=== PATIENT | female | born 1970 | race Caucasian/White ===

== ENCOUNTER 2017-01-27 14:20 | Emergency (ER) | payer OTHER ==
[~2017-01-27] VITALS: Ht 147.3 cm; Wt 84.5 kg
[~2017-01-27 14:20] MED LIST: CARB200T PO; CLTP PO; DIAZ-165 PO; DIVA125C PO; IBUP-1050 PO; PSEU30TA20 PO
[2017-01-27 14:35] VITALS: TEMP 36.7; Ht 147.3 cm; Wt 84.5 kg
[2017-01-27 15:10] LABS: URINE APPEARANCE CLOUDY (CLEAR); URINE BILIRUBIN NEG (NEG); URINE COLOR YELLOW; URINE EPITHELIAL CELL AUTO >30 /lpf (0-5); URINE NITRITE POS (NEG); URINE SPECIFIC GRAVITY 1.013 (1.000-1.030); UROBILINOGEN NEG (NEG); ZZURINE CULT IF INDIC CATH YES
[2017-01-27 15:11] LABS: MANUAL MICROSCOPIC REQUIRED? NO; REVIEW REQ? YES
[2017-01-27] MEDS ORDERED: ACET325T96 PO (15:19)
[2017-01-27] MEDS ORDERED: MULT-513 PO (15:21)
--- NOTE | 2017-01-27 15:26 | EMERGENCY ROOM VISIT NOTE ---
History Report prepared by Robert: Gita Morales Under the Supervision of: Dr. Hectro Magana D.O. First contact with patient: 14:22 Stated Complaint: FEVER History of Present Illness The patient is a 46 year old female who presents to the Emergency Room with complaints of a constant illness beginning 4 days ago. The patient's mother states that she had a cold 2 weeks ago that has spread throughout their family. She reports that her had the cold with a cough, fever, and chills and was seen here in the ED 4 days ago. She notes that he was tested for the flu and had a chest x-ray that came back negative. The mother states that the patient is a paraplegic and has a trach that was changed 1 week ago and is suctioned multiple times a day and a Larson that is changed every 3 weeks. She reports that she noticed the patient starting to get sick about 4 days ago with a runny nose. The following day she states that the patient slept most of the day and had a fever of 101 at night. She notes that she gave the patient Motrin yesterday morning but since last night into the morning the patient had not had a fever. Today the patient's mother states that the patient had Motrin and Sudafed about 6 hours ago and had a fever of 100.6 before she came in today. The patient's mother denies any recent urinary tract infections, urinary symptoms or changes, sore throat, and abdominal pain. She complains of a non- productive cough that is not new or worse, clear runny nose beginning 4 days ago , fever, ear pain, and need for slightly more frequent suctioning. Source of History: parent Onset: 4 days ago Position: other (global) Symptom Intensity: 100.6 Timing: constant Associated Symptoms: + cough, + fevers, No abdominal pain, No sorethroat, No urinary symptoms Note: The patient's mother denies any recent urinary tract infections. She complains of a clear runny nose beginning 4 days ago, ear pain, and need for slightly more frequent suctioning. Review of Systems See HPI for pertinent positives & negatives. A total of 10 systems reviewed and were otherwise negative. Past Medical & Surgical Medical Problems: (1) Generalized epilepsy Family History No pertinent family history stated. Social History Smokeless Tobacco Use: No Marital Status: single Housing Status: lives with family Current/Historical Medications Scheduled Acetaminophen Tab (Tylenol), 650 MG PO PRN UD Carbamazepine (Tegretol), 200 MG PO BID Diazepam (Valium), 5 MG PO BID Divalproex Sodium (Depakote Sprinkle), 625 MG PO BID Lamotrigine (Lamictal), 100 MG PO BID Levofloxacin (Levaquin), 1 TAB PO DAILY Multivitamins/Minerals (Mvi With Minerals), 1 TAB PO DAILY Oseltamivir Phosphate (Tamiflu), 12.5 ML PEG BID Scheduled PRN Ibuprofen (Advil), 200-600 MG PO Q4H PRN for Pain or Fever Pseudoephedrine (Sudafed), 30 MG PO Q4 PRN for nasal congestion Allergies Coded Allergies: Phenobarbital (Verified Adverse Reaction, Unknown, INTOLERANT, 12/31/09) PER PT MOTHER IN CHILDHOOD PT BECAME SEVERLY DEPRESSED FROM MEDICATION Physical Exam Vital Signs Date Time Temp Pulse Resp B/P Pulse Ox O2 Delivery O2 Flow Rate FiO2 01/27/17 16:55 88 20 128/98 99 Room Air 01/27/17 14:35 36.7 78 18 106/93 96 Room Air Physical Exam GENERAL: sitting up in wheelchair, no distress, non-toxic EYE EXAM: normal conjunctiva EAR EXAM: TMs clear bilaterally OROPHARYNX: no exudate, no erythema, lips, buccal mucosa, and tongue normal and mucous membranes are moist NECK: supple, no nuchal rigidity, no adenopathy, non-tender, trach collar in place LUNGS: Poor respiratory effort, slight Rhonchi at the bases HEART: distant, no murmurs, S1 normal and S2 normal ABDOMEN: peg tube in place, abdomen soft, non-tender, normo-active bowel sounds , no masses, no rebound or guarding. BACK: Back is symmetrical on inspection and there is no deformity, no midline tenderness, no CVA tenderness. SKIN: no rashes and no bruising UPPER EXTREMITIES: upper extremities are grossly normal. LOWER EXTREMITIES: Mild pitting edema. EXAM: Larson in place NEURO EXAM: Alert, intermittently shakes head yes and no, at baseline per mother. Medical Decision & Procedures ER Provider Diagnostic Interpretation: Xray results per the radiologist and my interpretation. TWO VIEW CHEST FINDINGS: AP and lateral chest radiographs are compared to study dated 10/29/2013. The AP view is significant degraded by patient rotation and by the patient's head obscuring the right apex. A tracheostomy is in place. The heart is top normal for projection. The pulmonary vasculature is noncongested. There are low lung volumes with elevation of the right hemidiaphragm and bibasilar atelectasis. Retrocardiac airspace opacities are observed on the frontal view. No large pleural effusion or pneumothorax is identified. The skeletal structures are osteopenic. Degenerative change and hyperkyphosis are noted in the thoracic spine. An IVC filter is present in the upper abdomen. A catheter projects over the upper abdomen. IMPRESSION: 1. Low lung volumes and bibasilar atelectasis. 2. Airspace opacities in the retrocardiac region are indeterminant but concerning for an infectious/inflammatory pneumonitis. Clinical correlation will be required. Radiographic follow-up to resolution is recommended. Electronically signed by: Britton Lozoya M.D. 01/27/2017 3:54 PM Dictated Date/Time: 01/27/2017 3:51 PM Laboratory Results 01/27/17 15:29 Red Blood Count 3.78, Mean Corpuscular Volume 93.4, Mean Corpuscular Hemoglobin 32.3, Mean Corpuscular Hemoglobin Concent 34.6, Mean Platelet Volume 9.8, Neutrophils (%) (Auto) 73.2, Lymphocytes (%) (Auto) 16.8, Monocytes (%) (Auto) 9.8, Eosinophils (%) (Auto) 0.0, Basophils (%) (Auto) 0.1, Neutrophils # (Auto) 5.85, Lymphocytes # (Auto) 1.34, Monocytes # (Auto) 0.78, Eosinophils # (Auto) 0.00, Basophils # (Auto) 0.01 01/27/17 15:29 Test 01/27/17 14:47 01/27/17 14:50 01/27/17 15:29 Urine Color YELLOW Urine Appearance CLOUDY (CLEAR) Urine pH 6.0 (4.5-7.5) Urine Specific [place] 1.013 (1.000-1.030) Urine Protein NEG (NEG) Urine Glucose (UA) NEG (NEG) Urine Ketones TRACE (NEG) Urine Occult Blood 2+ (NEG) Urine Nitrite POS (NEG) Urine Bilirubin NEG (NEG) Urine Urobilinogen NEG (NEG) Urine Leukocyte Esterase NEG (NEG) Urine WBC (Auto) 5-10 /hpf (0-5) Urine RBC (Auto) 10-30 /hpf (0-4) Urine Hyaline Casts (Auto) 1-5 /lpf (0-5) Urine Epithelial Cells (Auto) >30 /lpf (0-5) Urine Bacteria (Auto) 4+ (NEG) Urine Renal Epithelial Cells 5-10 /lpf (0-5) Influenza Type A Antigen Neg for Influ A (NEG) Influenza Type B Antigen POS for Influ B (NEG) White Blood Count 7.99 K/uL (4.8-10.8) Red Blood Count 3.78 M/uL (4.2-5.4) Hemoglobin 12.2 g/dL (12.0-16.0) Hematocrit 35.3 % (37-47) Mean Corpuscular Volume 93.4 fL (80-100) Mean Corpuscular Hemoglobin 32.3 pg (25-34) Mean Corpuscular Hemoglobin Concent 34.6 g/dl (32-36) Platelet Count 132 K/uL (130-400) Mean Platelet Volume 9.8 fL (7.4-10.4) Neutrophils (%) (Auto) 73.2 % Lymphocytes (%) (Auto) 16.8 % Monocytes (%) (Auto) 9.8 % Eosinophils (%) (Auto) 0.0 % Basophils (%) (Auto) 0.1 % Neutrophils # (Auto) 5.85 K/uL (1.4-6.5) Lymphocytes # (Auto) 1.34 K/uL (1.2-3.4) Monocytes # (Auto) 0.78 K/uL (0.11-0.59) Eosinophils # (Auto) 0.00 K/uL (0-0.5) Basophils # (Auto) 0.01 K/uL (0-0.2) RDW Standard Deviation 43.8 fL (36.4-46.3) RDW Coefficient of Variation 12.8 % (11.5-14.5) Immature Granulocyte % (Auto) 0.1 % Immature Granulocyte # (Auto) 0.01 K/uL (0.00-0.02) Anion Gap 11.0 mmol/L (3-11) Est Creatinine Clear Calc Drug Dose 174.0 ml/min Estimated GFR () 149.3 Estimated GFR (Non- 128.8 BUN/Creatinine Ratio 21.3 (10-20) Calcium Level 8.7 mg/dl (8.5-10.1) Total Bilirubin 0.1 mg/dl (0.2-1) Direct Bilirubin < 0.1 mg/dl (0-0.2) Aspartate Amino Transf (AST/SGOT) 15 U/L (15-37) Alanine Aminotransferase (ALT/SGPT) 14 U/L (12-78) Alkaline Phosphatase 62 U/L (45-117) Total Protein 6.5 gm/dl (6.4-8.2) Albumin 2.7 gm/dl (3.4-5.0) Lipase 138 U/L (73-393) Laboratory results per my review. Medications Administered Medications (Trade) Dose Ordered Sig/Leisa Route Start Time Stop Time Status Last Admin Dose Admin Levofloxacin (Levaquin Tab) 750 mg NOW STAT PO 01/27/17 16:37 01/27/17 16:38 DC 01/27/17 16:45 750 MG Oseltamivir Phosphate (Tamiflu Cap) 75 mg STK-MED ONCE PO 01/27/17 16:41 01/27/17 16:44 DC 01/27/17 16:46 75 MG ED Course ED COURSE: Vital signs were reviewed and normal The patients medical record was reviewed The above diagnostic studies were performed and reviewed. ED treatments and interventions as stated above. 1423: The patient was evaluated in room B3. A complete history and physical examination was performed. 1549: Urine cultures reviewed no previous sensitivities. 1637: Tamiflu Susp 25mg PO, Levaquin Tab 750mg PO. 1642: Upon reevaluation, the patient is hemodynamically stable.I discussed my findings with the patient and her mother. They understand and agree with the treatment plan. Based on the patients age, coexisting illnesses, exam and lab findings the decision to treat as an outpatient was made. The patient remained stable while under my care. The patient appeared well at the time of discharge. Medical Decision Differential diagnosis includes etiologies such as sepsis, UTI, pneumonia, metabolic, electrolyte abnormalities, cardiac sources, intracerebral event, toxicologic, neurologic, as well as viral syndrome, otitis, pharyngitis, pneumonia, influenza, meningitis, urinary tract infection, sepsis, bacteremia, as well as others were entertained. Patient is a 46-year-old female who is a paraplegic with a trach collar and PEG tubes that presents the ER with fevers, increased sputum and runny nose. Multiple sick contacts within the family including patient's mother, father and brother with similar upper respiratory symptoms. Symptoms started Sunday when she is not feeling well. There is associated fever but this resolved until today. She again had a fever today of 100.6. Mother is a charge nurse on for the ER. Chest x-ray and blood work was obtained. She also has a Larson in place. Urine shows nitrates, leukocytes, white cells but multiple epithelial cells. Chest x-ray has an infiltrate. Influenza B was positive. Patient was treated for influenza with Tamiflu and Levaquin which would cover a UTI although I favor this is chronic with indwelling Larson and any pneumonia. Mom is a nurse and was comfortable taking the patient home. I felt this is reasonable as vitals were stable. Discussed with parent concerning signs and symptoms to watch out for. Parent was instructed to follow up with their PCP and discussed with the parent their option to return to the ED at anytime for persistent or worsening symptoms. The appropriate anticipatory guidance and out- patient management, including indications for return to the emergency department , were explained at length to the parent and understood. Impression Primary Impression: Influenza B Additional Impressions: Pneumonia UTI (urinary tract infection) Scribe Attestation The scribe's documentation has been prepared under my direction and personally reviewed by me in its entirety. I confirm that the note above accurately reflects all work, treatment, procedures, and medical decision making performed by me. Departure Information Dispostion Home / Self-Care Prescriptions Oseltamivir Phosphate (TAMIFLU) 6 Mg/Ml Radha 12.5 ML PEG BID for 5 Days Prov: Hector Magana, DO 01/27/17 Levofloxacin (LEVAQUIN) 750 Mg Tab 1 TAB PO DAILY for 10 Days, #10 TAB Prov: Hector Magana, DO 01/27/17 Referrals Carrie Roca M.D. (PCP) Forms HOME CARE DOCUMENTATION FORM, IMPORTANT VISIT INFORMATION Patient Instructions My [facility], Pneumonia (Bacterial) - [facility] Additional Instructions Please follow up with your primary care doctor with in the next 24 hours. Any worsening of your symptoms, please return to the ED immediately. This includes fevers or systolic greater than 100.4 for the next 3 days, decreased mentation/ tiredness, confusion, persistent nausea vomiting, or any other concerning signs or symptoms from your standpoint. Please give the antibiotics and Tamiflu as prescribed. Problem Qualifiers Additional Impressions: Pneumonia Pneumonia type: due to unspecified organism Laterality: unspecified laterality Lung location: unspecified part of lung Qualified Codes: J18.9 - Pneumonia, unspecified organism UTI (urinary tract infection) Urinary tract infection type: acute cystitis Hematuria presence: without hematuria Qualified Codes: N30.00 - Acute cystitis without hematuria
[2017-01-27 15:37] LABS: BASO % 0.1 %; BASO ABS # 0.01 K/uL (0-0.2); COMPLETE YES; HEMATOCRIT 35.3 % (37-47); IG% 0.1 %; LYMPH % 16.8 %; LYMPH ABS # 1.34 K/uL (1.2-3.4); MEAN CELL VOLUME 93.4 fL (80-100); MEAN CORPUSCULAR HEMOGLOBIN 32.3 pg (25-34); MEAN CORPUSCULAR HGB CONC 34.6 g/dl (32-36); MEAN PLATELET VOLUME 9.8 fL (7.4-10.4); MONO % 9.8 %; NEUT % 73.2 %; PLATELET COUNT 132 K/uL (130-400); RED BLOOD COUNT 3.78 M/uL (4.2-5.4); WHITE BLOOD COUNT 7.99 K/uL (4.8-10.8)
[2017-01-27] MEDS ORDERED: METHYLPREDNISOLONE 125 MG VIAL IV STA (15:41)
[2017-01-27 15:52] LABS: ALT/SGPT 14 U/L (12-78); BLOOD UREA NITROGEN 8 mg/dl (7-18); BUN/CREATININE RATIO 21.3 (10-20); CALCIUM 8.7 mg/dl (8.5-10.1); CARBON DIOXIDE 24 mmol/L (21-32); CHLORIDE 95 mmol/L (98-107); CREATININE 0.38 mg/dl (0.60-1.20); GLUCOSE 99 mg/dl (70-99); SODIUM 130 mmol/L (136-145)
--- NOTE | 2017-01-27 15:55 | DIAGNOSTIC IMAGING REPORT ---
TWO VIEW CHEST CLINICAL HISTORY: Fever. FINDINGS: AP and lateral chest radiographs are compared to study dated 10/29/2013. The AP view is significant degraded by patient rotation and by the patient's head obscuring the right apex. A tracheostomy is in place. The heart is top normal for projection. The pulmonary vasculature is noncongested. There are low lung volumes with elevation of the right hemidiaphragm and bibasilar atelectasis. Retrocardiac airspace opacities are observed on the frontal view. No large pleural effusion or pneumothorax is identified. The skeletal structures are osteopenic. Degenerative change and hyperkyphosis are noted in the thoracic spine. An IVC filter is present in the upper abdomen. A catheter projects over the upper abdomen. IMPRESSION: 1. Low lung volumes and bibasilar atelectasis. 2. Airspace opacities in the retrocardiac region are indeterminant but concerning for an infectious/inflammatory pneumonitis. Clinical correlation will be required. Radiographic follow-up to resolution is recommended. Electronically signed by: Britton Lozoya M.D. 01/27/2017 3:54 PM Dictated Date/Time: 01/27/2017 3:51 PM
[2017-01-27 15:56] LABS: ALKALINE PHOSPHATASE 62 U/L (45-117); AST/SGOT 15 U/L (15-37)
[2017-01-27] MEDS ORDERED: LEVOFLOXACIN 250 MG TAB PO STA (16:37)
[2017-01-27] MEDS ORDERED: OSELTAMIVIR PHOSPHATE SUSP 75 MG/12.5 ML UDP PO STA (16:37)
[2017-01-27] MEDS ORDERED: OSELTAMIVIR PHOSPHATE 75 MG CAP PO ONE (16:41)
[2017-01-27] MEDS ORDERED: OSEL12.5 PEG (16:41)
[2017-01-27] MEDS ORDERED: LEVO-18 PO (16:41)
[2017-01-27 16:55] VITALS: BP 128/98; PULSE 88; O2SAT 99
[2017-01-27] MEDS ORDERED: LAMO100T16 PO (17:53)
--- NOTE | 2017-01-29 11:13 | Pharmacy Progress Note ---
ED Pharmacist Culture FollowUp Date of Service: Jan 29, 2017. Patient was seen in ER on 01/27/17 w/ fever, cough, ear pain, runny nose and increased secretions. She was diagnosed w/ Influenza B, PNX and possible UTI - although UTI was questionable due to the number of epis in the UA and low number of WBC (only 5-10). Patient was prescribed Levofloxacin 750mg daily x 10 days to treat PNX and possible UTI, along w/ Tamiflu for Infuenza B. The E coli growing in the patient's urine cx is sensitive to Levofloxacin, Levofloxacin is a reasonable choice for treatment of PNX in outpatient setting w / comorbidities; no action required.
== END 2017-01-27 16:58 | disposition home or self-care (01) ==
LOC: EDBD 14:20 → C.EDB 14:21
DX: J11.1 Influenza due to unidentified influenza virus with other respiratory manifestations (principal); J18.9 Pneumonia, unspecified organism; N30.00 Acute cystitis without hematuria; A49.8 Other bacterial infections of unspecified site; G40.909 Epilepsy, unspecified, not intractable, without status epilepticus

== ENCOUNTER 2017-09-09 13:19 | Emergency (ER) | payer OTHER ==
[~2017-09-09] VITALS: Ht 147.3 cm; Wt 97.7 kg
[~2017-09-09 13:19] MED LIST changes: +ACET325T96 PO; -CLTP PO; +LAMO100T16 PO; +MULT-513 PO; +OSEL12.5 PEG
[2017-09-09] MEDS ORDERED: SODIUM CHLORIDE 0.9% 1000ML 1,000 ML IV SCH (13:39)
[2017-09-09 14:02] VITALS: TEMP 36.4
[2017-09-09 14:04] VITALS: Ht 147.3 cm; Wt 97.7 kg
--- NOTE | 2017-09-09 14:37 | DIAGNOSTIC IMAGING REPORT ---
CHEST ONE VIEW PORTABLE HISTORY: Stroke symptoms. COMPARISON: Chest 01/27/2017. FINDINGS: Low lung volumes are again noted. No pneumothorax. No pleural effusions. Mild elevation of the right hemidiaphragm, unchanged. Cardiomediastinal silhouette is stable. Mild central pulmonary vascular congestion without overt edema. No new focal lung consolidations to suggest pneumonia. Tracheostomy tube appears to be in good position. IMPRESSION: Stable mild central pulmonary vascular congestion without overt edema. Electronically signed by: Guzman Jansen M.D. 09/09/2017 2:36 PM Dictated Date/Time: 09/09/2017 2:34 PM
[2017-09-09] MEDS ORDERED: MAGNTAB10 PO (14:58)
[2017-09-09] MEDS ORDERED: GUAI1TAB55 PO (14:58)
[2017-09-09] MEDS ORDERED: IBUP-1427 PO (14:58)
[2017-09-09 15:16] LABS: URINE APPEARANCE CLEAR (CLEAR); URINE BILIRUBIN NEG (NEG); URINE COLOR YELLOW; URINE NITRITE NEG (NEG); URINE PH 8.5 (4.5-7.5); URINE SPECIFIC GRAVITY 1.014 (1.000-1.030); UROBILINOGEN NEG (NEG); ZZURINE CULT IF INDIC CATH NO
[2017-09-09 15:17] LABS: MANUAL MICROSCOPIC REQUIRED? NO; REVIEW REQ? NO
[2017-09-09 15:23] LABS: COMPLETE YES; EOS % 0.4 %; HEMATOCRIT 34.4 % (37-47); IG% 0.2 %; LYMPH % 30.5 %; LYMPH ABS # 1.52 K/uL (1.2-3.4); MEAN CELL VOLUME 93.2 fL (80-100); MEAN CORPUSCULAR HEMOGLOBIN 32.2 pg (25-34); MEAN CORPUSCULAR HGB CONC 34.6 g/dl (32-36); MEAN PLATELET VOLUME 9.1 fL (7.4-10.4); MONO % 7.8 %; NEUT % 61.1 %; PLATELET COUNT 170 K/uL (130-400); RED BLOOD COUNT 3.69 M/uL (4.2-5.4); WHITE BLOOD COUNT 4.99 K/uL (4.8-10.8)
--- NOTE | 2017-09-09 15:33 | DIAGNOSTIC IMAGING REPORT ---
CT OF THE HEAD WITHOUT CONTRAST CLINICAL HISTORY: Stroke. Altered mental status. COMPARISON STUDY: No previous studies for comparison. CT DOSE: 655.73 mGy.cm TECHNIQUE: Helical axial images of the head were obtained without IV contrast. Automated exposure control was utilized for the study. A dose lowering technique was utilized adhering to the principles of ALARA. FINDINGS: Evaluation is suboptimal given difficulty positioning. However, no acute intracranial hemorrhage, midline shift or mass effect is present. The cerebellum appears hypoplastic/atrophic. Ventricular system is unremarkable. The basilar cisterns are patent. There are no extra-axial collections. There are no findings to suggest acute dural sinus thrombosis or acute territorial infarct. No significant calvarial abnormalities are present. Visualized portions of the sinuses and mastoid air cells are clear. IMPRESSION: 1. No acute intracranial findings. 2. Study mildly compromised due to difficulty positioning. Electronically signed by: Mata Hughes M.D. 09/09/2017 3:32 PM Dictated Date/Time: 09/09/2017 3:28 PM
[2017-09-09 15:34] LABS: PARTIAL THROMBOPLASTIN RATIO 1.1; PROTHROMBIN TIME (PATIENT) 10.7 SECONDS (9.0-12.0)
[2017-09-09 15:52] LABS: BLOOD UREA NITROGEN 13 mg/dl (7-18); BUN/CREATININE RATIO 34.2 (10-20); CALCIUM 8.9 mg/dl (8.5-10.1); CARBON DIOXIDE 26 mmol/L (21-32); CHLORIDE 94 mmol/L (98-107); CREATININE 0.39 mg/dl (0.60-1.20); GLUCOSE 72 mg/dl (70-99); POTASSIUM 4.2 mmol/L (3.5-5.1); SODIUM 129 mmol/L (136-145)
--- NOTE | 2017-09-09 15:53 | EMERGENCY ROOM VISIT NOTE ---
History Report prepared by Robert: Rashid Loya Under the Supervision of: Dr. Marleen Melendez M.D. First contact with patient: 13:31 Chief Complaint: ALTERED MENTAL STATUS Stated Complaint: CHANGE IN MENTAL STATUS History of Present Illness The patient is a 47 year old female who presents to the Emergency Room for evaluation of an improving altered mental status beginning a few days ago. Per mother, the patient has been acting "punky" and has been "floppy" for several days. She notes that the patient finished a course of Amoxicillin earlier this week for sinus infection, and Bactrim for a UTI three weeks ago. She notes that the patient was found to be abnormally hypertensive today as well. The patient' s mother states that the patient was having problems with following commands today, but this appears to have resolved. She states that the patient seemed to understand the commands, but was having difficulty executing the movements. She states that the patient's speech has been "garbled" recently as well. The patient's mother notes that the patient had an episode of very dark, and foul smelling urine earlier this week. She denies any vomiting, or nausea. The patient has a history of paraplegia and epilepsy. She has a tracheostomy and PEG tube in place. She complained of a headache earlier today. HPI limited secondary to MR. Source of History: family History Limited By: other (MR) Onset: A few days ago Quality: other (altered mental status) Timing: other (improving) Associated Symptoms: + headache, + urinary symptoms (episode of foul smelling, very dark urine), No nausea, No vomiting Review of Systems ROS limited secondary to MR. Past Medical & Surgical Medical Problems: (1) Acute bronchitis (2) Acute bronchitis (3) Generalized epilepsy (4) Influenza B (5) Mental retardation (6) Paraplegia (7) Pneumonia (8) UTI (urinary tract infection) Family History No pertinent family history stated Social History Smoking Status: Never Smoker Marital Status: single Housing Status: lives with family Current/Historical Medications Scheduled Acetaminophen Tab (Tylenol), 650 MG PO PRN UD Carbamazepine (Tegretol), 200 MG PO BID Diazepam (Valium), 5 MG PO BID Divalproex Sodium (Depakote Sprinkle), 625 MG PO BID Guaifenesin Ext Rel (Mucinex Ext Rel), 600 MG PO QPM Lamotrigine (Lamictal), 100 MG PO BID Magnesium Oxide (Mg Supplement (Mag-200), 200 MG PO Q2D Magnesium Oxide (Mg Supplement (Mag-200), 400 MG PO Q2D Multivitamins/Minerals (Mvi With Minerals), 1 TAB PO DAILY Pseudoephedrine (Sudafed), 30 MG PO QAM Scheduled PRN Ibuprofen (Advil), 200-600 MG PO Q4H PRN for Pain or Fever Ibuprofen Tab (Motrin), 600 MG PO QAM PRN for Pain Allergies Coded Allergies: Phenobarbital (Verified Adverse Reaction, Unknown, INTOLERANT, 09/09/17) PER PT MOTHER IN CHILDHOOD PT BECAME SEVERLY DEPRESSED FROM MEDICATION Physical Exam Vital Signs Date Time Temp Pulse Resp B/P (MAP) Pulse Ox O2 Delivery O2 Flow Rate FiO2 09/09/17 15:43 70 20 146/95 98 Room Air 139/87 09/09/17 14:04 Room Air 09/09/17 14:02 36.4 82 21 137/94 99 Room Air Physical Exam Vital signs reviewed. General: Obese, chronically ill-appearing female, in no significant distress. HEENT: No scleral icterus, PERRLA, neck supple. Atraumatic. Tracheostomy with minimal amounts of clear sputum suctioned. Cardiovascular: Regular rate and rhythm, no extra sounds. Pulmonary: Clear to auscultation bilaterally, normal work of breathing. Abdomen: Soft, nontender, nondistended, positive bowel sounds. Indwelling Larson catheter draining clear, yellow urine. Musculoskeletal: Atraumatic, no peripheral edema. Neurologic: Minimally verbal. Able to follow simple commands. Equal strength of the bilateral upper extremities. Occasional disconjugate gaze (baseline). No focal neurologic abnormality. Paraplegia bilateral lower extremities. Skin: Warm, dry, no rash Medical Decision & Procedures ER Provider Diagnostic Interpretation: Radiology results as stated below per my review and radiologist interpretation: CT OF THE HEAD WITHOUT CONTRAST FINDINGS: Evaluation is suboptimal given difficulty positioning. However, no acute intracranial hemorrhage, midline shift or mass effect is present. The cerebellum appears hypoplastic/atrophic. Ventricular system is unremarkable. The basilar cisterns are patent. There are no extra-axial collections. There are no findings to suggest acute dural sinus thrombosis or acute territorial infarct. No significant calvarial abnormalities are present. Visualized portions of the sinuses and mastoid air cells are clear. IMPRESSION: 1. No acute intracranial findings. 2. Study mildly compromised due to difficulty positioning. Electronically signed by: Mata Hughes M.D. 09/09/2017 3:32 PM CHEST ONE VIEW PORTABLE FINDINGS: Low lung volumes are again noted. No pneumothorax. No pleural effusions. Mild elevation of the right hemidiaphragm, unchanged. Cardiomediastinal silhouette is stable. Mild central pulmonary vascular congestion without overt edema. No new focal lung consolidations to suggest pneumonia. Tracheostomy tube appears to be in good position. IMPRESSION: Stable mild central pulmonary vascular congestion without overt edema. Electronically signed by: Guzman Jansen M.D. 09/09/2017 2:36 PM Laboratory Results 09/09/17 14:53 Red Blood Count 3.69, Mean Corpuscular Volume 93.2, Mean Corpuscular Hemoglobin 32.2, Mean Corpuscular Hemoglobin Concent 34.6, Mean Platelet Volume 9.1, Neutrophils (%) (Auto) 61.1, Lymphocytes (%) (Auto) 30.5, Monocytes (%) (Auto) 7.8, Eosinophils (%) (Auto) 0.4, Basophils (%) (Auto) 0.0, Neutrophils # (Auto) 3.05, Lymphocytes # (Auto) 1.52, Monocytes # (Auto) 0.39, Eosinophils # (Auto) 0.02, Basophils # (Auto) 0.00 09/09/17 14:53 Test 09/09/17 13:53 09/09/17 14:53 09/09/17 15:00 Bedside Prothrombin Time INR 1.0 (0.9-1.1) Bedside Glucose 72 mg/dl (70-90) White Blood Count 4.99 K/uL (4.8-10.8) Red Blood Count 3.69 M/uL (4.2-5.4) Hemoglobin 11.9 g/dL (12.0-16.0) Hematocrit 34.4 % (37-47) Mean Corpuscular Volume 93.2 fL (80-100) Mean Corpuscular Hemoglobin 32.2 pg (25-34) Mean Corpuscular Hemoglobin Concent 34.6 g/dl (32-36) Platelet Count 170 K/uL (130-400) Mean Platelet Volume 9.1 fL (7.4-10.4) Neutrophils (%) (Auto) 61.1 % Lymphocytes (%) (Auto) 30.5 % Monocytes (%) (Auto) 7.8 % Eosinophils (%) (Auto) 0.4 % Basophils (%) (Auto) 0.0 % Neutrophils # (Auto) 3.05 K/uL (1.4-6.5) Lymphocytes # (Auto) 1.52 K/uL (1.2-3.4) Monocytes # (Auto) 0.39 K/uL (0.11-0.59) Eosinophils # (Auto) 0.02 K/uL (0-0.5) Basophils # (Auto) 0.00 K/uL (0-0.2) RDW Standard Deviation 43.1 fL (36.4-46.3) RDW Coefficient of Variation 12.6 % (11.5-14.5) Immature Granulocyte % (Auto) 0.2 % Immature Granulocyte # (Auto) 0.01 K/uL (0.00-0.02) Prothrombin Time 10.7 SECONDS (9.0-12.0) Prothromb Time International Ratio 1.0 (0.9-1.1) Activated Partial Thromboplast Time 28.3 SECONDS (21.0-31.0) Partial Thromboplastin Ratio 1.1 Anion Gap 9.0 mmol/L (3-11) Est Creatinine Clear Calc Drug Dose 182.9 ml/min Estimated GFR () 147.0 Estimated GFR (Non- 126.8 BUN/Creatinine Ratio 34.2 (10-20) Calcium Level 8.9 mg/dl (8.5-10.1) Total Creatine Kinase 29 U/L (26-192) Creatine Kinase MB 0.7 ng/ml (0.5-3.6) Creatine Kinase MB Ratio 2.4 (0-3.0) Troponin I < 0.015 ng/ml (0-0.045) Urine Color YELLOW Urine Appearance CLEAR (CLEAR) Urine pH 8.5 (4.5-7.5) Urine Specific [place] 1.014 (1.000-1.030) Urine Protein NEG (NEG) Urine Glucose (UA) NEG (NEG) Urine Ketones NEG (NEG) Urine Occult Blood 2+ (NEG) Urine Nitrite NEG (NEG) Urine Bilirubin NEG (NEG) Urine Urobilinogen NEG (NEG) Urine Leukocyte Esterase NEG (NEG) Urine WBC (Auto) 1-5 /hpf (0-5) Urine RBC (Auto) 10-30 /hpf (0-4) Urine Hyaline Casts (Auto) 1-5 /lpf (0-5) Urine Epithelial Cells (Auto) 10-20 /lpf (0-5) Urine Bacteria (Auto) NEG (NEG) Medications Administered Medications (Trade) Dose Ordered Sig/Leisa Route Start Time Stop Time Status Last Admin Dose Admin Sodium Chloride 1,000 ml @ 50 mls/hr Q20H IV 09/09/17 13:39 10/09/17 13:38 09/09/17 15:42 50 MLS/HR ECG Indication: altered mental status Rate (beats per minute): 68 Rhythm: normal sinus Findings: T-wave inversion (Anterolateral), other (non-specific ST changes, inferior) Change: no significant change (2-6-10) ED Course 1333: Past medical records reviewed. The patient was evaluated in room B6. A complete history and physical examination was performed. 1339: Ordered Sodium Chloride 1000 ml @ 50 mls/hr IV Medical Decision Differential diagnosis: Etiologies such as metabolic, infection, hypoglycemia, electrolyte abnormalities , cardiac sources, intracerebral event, toxicologic, neurologic, as well as others were entertained. This patient was evaluated and appeared to be in no significant distress. Physical examination is difficult to interpret as the patient has profound mental delay and is a paraplegic. She has a tracheostomy an indwelling Larson catheter. She is well attended to by her parents. Patient's urinalysis is negative for infection, there is some blood although her Larson catheter was changed. Likely traumatic. Laboratory work reveals a normal WBC. She is mildly hyponatremic at 129. Mother has been giving free water through the PEG tube for fear of dehydration recently. The patient seems to be moving both upper extremities and following commands currently. Her mother states she is at her baseline. Head CT was performed and is negative. Chest x-ray reveals pulmonary vascular congestion and have the patient is morbidly obese. She is lying flat on her back on room air with oxygen saturations at 98%. I do not feel that fluid overload is an issue currently. Liver enzymes and antiepileptic medication levels are pending although the patient does not seem to have any abdominal pain. I suspect the patient had either a TIA or partial seizure. Parents felt comfortable with the plan for discharge. They're advised to minimize free water administration currently. They will contact PCP for further management. Nursing staff will contact the parents with final laboratory results. Impression Primary Impression: Altered mental state Scribe Attestation The scribe's documentation has been prepared under my direction and personally reviewed by me in its entirety. I confirm that the note above accurately reflects all work, treatment, procedures, and medical decision making performed by me. Departure Information Referrals Carrie Roca M.D. (PCP) Patient Instructions My [facility]
[2017-09-09 15:56] LABS: CKMB/CK RATIO 2.4 (0-3.0)
[2017-09-09 16:25] LABS: ALKALINE PHOSPHATASE 68 U/L (45-117); ALT/SGPT 17 U/L (12-78); AST/SGOT 10 U/L (15-37)
[2017-09-09 17:08] VITALS: BP 155/99; PULSE 67; O2SAT 100
--- NOTE | 2017-09-11 16:56 | EMERGENCY ROOM VISIT NOTE ---
ED Visit Note First contact with patient: 13:31 Followed up with pt's mother regarding elevated carbamazepine level. She stated pt has repeat labs drawn today, results pending. Recommended f/u with PCP regarding drug administration and BP check.
== END 2017-09-09 17:10 | disposition home or self-care (01) ==
LOC: C.EDB 13:20
DX: R41.82 Altered mental status, unspecified (principal); G40.309 Generalized idiopathic epilepsy and epileptic syndromes, not intractable, without status epilepticus; F79 Unspecified intellectual disabilities; Z87.440 Personal history of urinary (tract) infections; Z79.899 Other long term (current) drug therapy; Z88.8 Allergy status to other drugs, medicaments and biological substances

== ENCOUNTER → 2017-09-11 | Outpatient (CLI) | payer OTHER ==
[~2017-09-11] MED LIST changes: +GUAI1TAB55 PO; +IBUP-1427 PO; +MAGNTAB10 PO; -OSEL12.5 PEG
[2017-09-11 15:30] LABS: BLOOD UREA NITROGEN 18 mg/dl (7-18); BUN/CREATININE RATIO 43.5 (10-20); CALCIUM 9.3 mg/dl (8.5-10.1); CARBON DIOXIDE 27 mmol/L (21-32); CHLORIDE 98 mmol/L (98-107); CREATININE 0.41 mg/dl (0.60-1.20); GLUCOSE 79 mg/dl (70-99); POTASSIUM 4.3 mmol/L (3.5-5.1); SODIUM 133 mmol/L (136-145)
== END | disposition home or self-care (01) ==
LOC: C.LAB 12:32
PROVIDERS: ATTEND Emergency Medicine
DX: E87.8 Other disorders of electrolyte and fluid balance, not elsewhere classified (principal)

== ENCOUNTER → 2017-09-14 | Outpatient (CLI) | payer OTHER ==
--- NOTE | 2017-09-14 13:48 | DIAGNOSTIC IMAGING REPORT ---
ABDOMINAL AORTIC ULTRASOUND CLINICAL HISTORY: Elevated blood pressure. Family history of abdominal aortic aneurysm. COMPARISON STUDY: CT of the abdomen and pelvis July 24, 2011. FINDINGS: The caliber of the abdominal aorta is normal. The proximal abdominal aorta measures 2.2 cm. The mid abdominal aorta measures 1.5 cm and the distal abdominal aorta measures 1.4 cm. The proximal bilateral common iliac arteries are partially obscured but likely normal in caliber. IMPRESSION: Normal caliber abdominal aorta. Electronically signed by: Mata Hughes M.D. 09/14/2017 1:47 PM Dictated Date/Time: 09/14/2017 1:45 PM
== END | disposition home or self-care (01) ==
LOC: C.ULTR 13:06
PROVIDERS: ATTEND Physician Assistant
DX: R03.0 Elevated blood-pressure reading, without diagnosis of hypertension (principal); Z82.49 Family history of ischemic heart disease and other diseases of the circulatory system

== ENCOUNTER → 2018-03-14 | Outpatient (CLI) | payer OTHER ==
[~2018-03-14] MED LIST changes: +ACET-1693 PO; -ACET325T96 PO
[2018-03-14 16:40] LABS: BASO % 0.2 %; BASO ABS # 0.01 K/uL (0-0.2); EOS % 0.6 %; EOS ABS # 0.03 K/uL (0-0.5); HEMATOCRIT 35.5 % (37-47); HEMOGLOBIN 12.2 g/dL (12.0-16.0); LYMPH % 26.1 %; LYMPH ABS # 1.35 K/uL (1.2-3.4); MEAN CELL VOLUME 92.9 fL (80-100); MEAN CORPUSCULAR HEMOGLOBIN 31.9 pg (25-34); MEAN CORPUSCULAR HGB CONC 34.4 g/dl (32-36); MEAN PLATELET VOLUME 10.2 fL (7.4-10.4); MONO % 9.5 %; MONO ABS # 0.49 K/uL (0.11-0.59); NEUT % 63.6 %; PLATELET COUNT 179 K/uL (130-400); RED CELL DISTRIBUTION WIDTH CV 13.3 % (11.5-14.5); RED CELL DISTRIBUTION WIDTH SD 45.3 fL (36.4-46.3); WHITE BLOOD COUNT 5.18 K/uL (4.8-10.8)
[2018-03-14 17:08] LABS: ALBUMIN 3.1 gm/dl (3.4-5.0); ALT/SGPT 13 U/L (12-78); AST/SGOT 7 U/L (15-37); BLOOD UREA NITROGEN 15 mg/dl (7-18); CALCIUM 8.9 mg/dl (8.5-10.1); CARBON DIOXIDE 28 mmol/L (21-32); CREATININE 0.41 mg/dl (0.60-1.20); GLUCOSE 84 mg/dl (70-99); POTASSIUM 3.8 mmol/L (3.5-5.1); SODIUM 129 mmol/L (136-145)
[2018-03-14 17:12] LABS: ALKALINE PHOSPHATASE 80 U/L (45-117); TOTAL PROTEIN 7.1 gm/dl (6.4-8.2)
--- NOTE | 2018-03-22 09:21 | EDITING REQUIRED CODING QUERY ---
TREATMENT RENDERED WITHOUT A DIAGNOSIS To promote full compliance with coding requirements relating to patient care, physician participation is requested in all cases of road driver uncertainty. Please assist us with providing a diagnosis/symptom for the test(s) below: A diagnosis/symptom was not documented on your Order. A valid diagnosis/symptom is required to bill all insurances. Please remember that we are unable to code a diagnosis of rule out, probable, possible, questionable, or suspected. Tests that require a diagnosis: DOS: 03/14/18 * Depakote Level DIAGNOSIS: Seizure disorder Provider Signature: Date: Thank you Jami Aldridge Health Information Management Once completed, please kindly fax back to [phone] For questions please call [phone]
== END | disposition home or self-care (01) ==
LOC: C.LAB 15:22
PROVIDERS: ATTEND Psychiatry & Neurology Neurology
DX: G40.309 Generalized idiopathic epilepsy and epileptic syndromes, not intractable, without status epilepticus (principal)

== ENCOUNTER 2019-10-05 12:31 | Inpatient (IN) ==
[2019-10-05 13:45] LABS: Basophils # (auto) 0.01 K/uL (0-0.2); Basophils % (auto) 0.2 %; Hematocrit (blood only) 34.4 % (37-47); Hemoglobin 12.1 g/dL (12.0-16.0); Immature Granulocytes # (auto) 0.01 K/uL (0.00-0.02); Immature Granulocytes % (auto) 0.2 %; Lymphocytes # (auto) 0.97 K/uL (1.2-3.4); Lymphocytes % (auto) 19.9 %; Mean Corpuscular Hemoglobin 32.1 pg (25-34); Mean Corpuscular Hgb Conc 35.2 g/dL (32-36); Mean Corpuscular Volume 91.2 fL (80-100); Mean Platelet Volume 9.4 fL (7.4-10.4); Monocytes # (auto) 0.67 K/uL (0.11-0.59); Monocytes % (auto) 13.8 %; Neutrophils # (auto) 3.21 K/uL (1.4-6.5); Neutrophils % (auto) 65.9 %; Platelet Count 123 K/uL (130-400); RDW Coefficient of Variation 14.8 % (11.5-14.5); RDW Standard Deviation 49.2 fL (36.4-46.3); Red Blood Count 3.77 M/uL (4.2-5.4); White Blood Count 4.87 K/uL (4.8-10.8)
[2019-10-05 13:53] LABS: Base Excess VBG 1.6 mEq/L; pH VBG 7.4 (7.36-7.41)
[2019-10-05 14:02] LABS: Alanine Aminotransferase 18 U/L (12-78); Albumin Level 3.1 gm/dl (3.4-5.0); Aspartate Aminotransferase 17 U/L (15-37); BUN Creatinine Ratio 34.9 (10-20); Bilirubin Direct < 0.1 mg/dl (0-0.2); Blood Urea Nitrogen 16 mg/dl (7-18); Calcium 9.4 mg/dl (8.5-10.1); Carbon Dioxide 25 mmol/L (21-32); Chloride 96 mmol/L (98-107); Est GFR (African American) 137.3; Est GFR (Non-African American) 118.5; Glucose 89 mg/dl (70-99); Lipase 198 U/L (73-393); Magnesium 1.9 mg/dl (1.8-2.4); Potassium 4.1 mmol/L (3.5-5.1); Sodium 131 mmol/L (136-145)
[2019-10-05 14:07] LABS: Alkaline Phosphatase 84 U/L (45-117); Bilirubin,Total 0.2 mg/dl (0.2-1); Total Protein 6.9 gm/dl (6.4-8.2); Troponin I < 0.015 ng/ml (0-0.045)
--- NOTE | 2019-10-05 14:19 | XRay Report ---
XR abdomen 2V w PA chest CLINICAL HISTORY: 49 years-old Female presenting with cough vomiting. TECHNIQUE: PA view of the chest and supine and left lateral decubitus views of the abdomen were obtai stephanie. COMPARISON: Chest x-ray from 01/17/2019. FINDINGS: Low lung volumes with hypoventilatory changes and elevation of the right hemidiaphragm. Tracheostomy tube in place. Prominence of the cardiac silhouette, which may relate to hypoventilatory change. Pulm onary vasculature mildly prominent. No focal opacity. No large effusion or pneumothorax. Gastrostomy tube in place. Nonobstructive bowel gas pattern. Mild to moderate stool burden throughout the colon. No gross pneumoperitoneum. IVC filter projects at the level of L2. Allowing for stool burden, possible punctate right renal calc ulus. No calcifications along the courses of the ureters. A surgical clip may be in place in the righ t pelvis. Osseous structures normal. IMPRESSION: 1. Low lung volumes with hypoventilatory changes. 2. Possible mild volume overload. 3. Stool burden suggests constipation. 4. No bowel obstruction Electronically signed by: Scottie Guzman M.D. 10/05/2019 2:17 PM
[2019-10-05 14:49] LABS: Appearance Urine Clear (Clear); Bacteria Urine Automated 2+ (Negative); Bilirubin Urine Negative (Negative); Blood Urine Trace (Negative); Color Urine Yellow; Epithelial Cell Urine Auto 0-5 /lpf (0-5); Glucose Urine UA Negative (Negative); Ketones Urine Trace (Negative); Leukocyte Esterase Urine 2+ (Negative); Nitrite Urine Positive (Negative); Protein Urine Negative (Negative); RBC Urine Automated 0-4 /hpf (0-4); Specific Gravity Urine 1.013 (1.000-1.030); Urobilinogen Urine Negative (Negative); pH Urine 6.5 (4.5-7.5)
[2019-10-05 15:09] LABS: Thyroid Stimulating Hormone 5.37 uIu/ml (0.300-4.500)
[2019-10-05 15:20] LABS: Influenza A virus by PCR Neg for Influ A (Neg); Influenza B virus by PCR Neg for Influ B (Neg)
[2019-10-05 15:22] LABS: T4 Free Thyroxine 1.32 ng/dl (0.8-1.6)
[2019-10-05] MEDS ORDERED: PIPERACILLIN/TAZOBACTAM 4.5 GM/120 ML BAG IV ONE (16:02)
--- NOTE | 2019-10-05 16:55 | History & Physical Report ---
Date of Service October 05, 2019 Assessment & Plan (1) UTI (urinary tract infection): UA as noted in the ED, cx pending Likely due to chronic catheter status Started on zosyn in the ED given resistance pattern noted on cx 02/2019, will continue (2) PNA (pneumonia): High risk for aspiration Increased secretions per family Zosyn will cover for pseudomonas (3) Hyponatremia: Baseline is 127, 131 on admission Monitor (4) Hypothermia: Chronic issue, working with PCP and renal to determine cause Baseline temp is 97.3 (5) Tracheostomy tube present: High risk for pseudomonas Family provides trach care (6) Chronic indwelling Larson catheter: High risk for UTI Placed 02/2019 (7) Seizure disorder: Baseline is daily seizure activity Has to take brand name tegretol Dosing recently adjusted, due to be checked--will check (8) Paraplegia: As noted Mother planning to stay with pt for duration of stay to provide care PEG in place for water use only PO meals otherwise (9) Hypothyroid: TSH with mild elevation at 5.3 Continue with current dosing (10) DVT prophylaxis: [place] filter in place SCDs Baseline status is immobile Will not cover further to avoid GIB History of Present Illness Primary Care Provider: Robin Hernandez 49 y/o F who was brought in today by parents for concerns of elevated temps Pt is generally with low temps for the last year. They have been working with PCP to determine the cause. She generally runs around 97.3, however for the last two days her temp has been 99.5. Pt has been showing other signs that she might have an infection recently. She had two days of emesis earlier this week. This has resolved. She has had increased coughing to the point of drawing tears over the last week. Pt frequently has food stuck in her trach that family removes, so there was concern that she may have aspirated with all of this coughing because she has been having increased secretions. Pt has also had a decreased appetite overall. Pt has had no complaints of pain, but family states that she does not usually tell them that information. She is generally constipated with mild abd distention. No change in abd distention. Pt did have a few loose stool s/p miralax dosing, but this is common. Family states pt has daily seizure activity. She did have an increase in "high grade" seizures the last few days, so possibly increased seizures. Pt has a PEG, however this is for water administration only. Pt takes PO meals and meds. Family denies SOB, chest pain, abd pain, c/d, LE pain or swelling concerns for pt. Pt has a suprapubic catheter in place since February and UOP has been at its u sual. Allergies Allergy/AdvReac Type Severity Reaction Status Date / Time phenobarbital AdvReac Intermediate depresssed Verified 10/05/19 14:13 Home Medications Home Medications Medication Instructions Recorded Confirmed Type diazepam 5 mg PO BID 11/14/18 10/05/19 History guaifenesin 600 mg PO QAM 11/14/18 10/05/19 History lamotrigine 100 mg PO BID 11/14/18 10/05/19 History magnesium oxide 200 mg PO Q2D 11/14/18 10/05/19 History magnesium oxide 400 mg PO Q2D 11/14/18 10/05/19 History multivitamin 1 tab PO QAM 11/14/18 10/05/19 History pseudoephedrine HCl [Sudafed] 30 mg PO DIRECTED PRN 11/14/18 10/05/19 History carbamazepine [Tegretol] 400 mg PO BID 01/15/19 10/05/19 History divalproex 625 mg PO BID 01/15/19 10/05/19 History levothyroxine 88 mcg PO QAM 10/05/19 10/05/19 History Past Med/Surg History Medical History Seizure disorder Paraplegia (Chronic) Had seizure and suffered epidural T2 and T3 which caused paraplegia Generalized epilepsy (Chronic 09/22/11) Mental retardation (Chronic) Chronic constipation Larson catheter in place Gastrointestinal tube present Leer[place] filter in place 2014 -Placed after back surgery prophylactically History of ARDS 2009 Hx of deep venous thrombosis left arm d/t central line Hx of dislocation right elbow Hx of fracture ankle d/t seizures Hx of ovarian cancer Hx of recurrent urinary tract infection had 3-4 over past year - Just finished ABX 01/11/2019 Hypothyroid Tracheostomy dependence 2014 - after back surgery was unable to be weaned from the ventilator. Has had chronic problems being weaned from the ventilator. Surgical History Difficult ventilator weaning 2015 - post op back surgery History of ankle surgery left ankle History of back surgery 2015 History of cardiac cath [place] 2015 Hx of hysterectomy, total 2009 Family History Other No pertinent family history in first degree relatives Social History Preferred Language: Amharic Communication Ability: Impaired Train Engineer Required: No Beliefs That Will Affect Care: None Current Living Situation: Family Feels Safe at Home: Yes Smoking Status: Never smoker Second Hand Exposure: No ; Hx Alcohol Use: No Hx Substance Use: No Review of Systems Review of Systems: Unable to obtain full ROS from pt given status, ROS as per family as listed above, otherwise neg. Physical Exam Constitutional: WD/WN, vitals as above Eyes: normal visual rivas by confrontation and + anicteric sclerae Neck: normal visual inspection and trachea midline Respiratory: difficult exam as pt will not take a deep breath in. She will give a forceful exhale. No wheezing or crackles noted. Air movement seems adequate. Cardiovascular: Rate/Rhythm: regular rate and regular rhythm Gastrointestinal (Abdomen): Inspection/Auscultation: + abdomen distended Percussion/Palpation: abdomen soft; abdomen nontender Musculoskeletal: Head/Neck/Chest: normocephalic and head atraumatic negative for edema, peripheral pulses intact Skin: no rashes, warm and dry Neurologic: awake Makes eye contact to name, follows basic commands, does not speak Psychiatric: Orientation: oriented to person and cooperative Eye Contact: good eye contact Speech: + mute Results & Data Vital Signs (Past 12 Hours) Vital Signs Temp Pulse Pulse Resp BP BP Pulse Ox 10/05/19 16:30 73 17 144/87 H 97 10/05/19 16:00 72 22 149/95 H 98 10/05/19 15:53 74 14 146/98 H 97 10/05/19 15:30 71 12 152/96 H 98 10/05/19 15:25 35.3 C L 10/05/19 15:00 69 65 13 147/89 H 147/89 H 94 10/05/19 14:54 71 14 142/96 H 94 10/05/19 14:41 35.4 C L 10/05/19 14:30 71 26 H 94 10/05/19 14:17 73 13 96 10/05/19 14:14 70 20 96 10/05/19 12:39 36.2 C L 72 18 141/82 H 97 Diagnostic Findings C/AXR: mild fluid overload, constipation ECG Findings: + 1st degree AV block Code Status & VTE Plan Code Status Full code per parents VTE Prophylaxis Plan VTE Prophylaxis will be ordered: Yes PG Care Time/CCT Total # of Minutes Spent Total Time Spent with Patient: Total time spent is greater than 50% in coordination of care (as documented) at patient's floor/unit and/or counseling patient: (1) Hypothermia Encounter type: initial encounter Qualified Code(s): T68.XXXA - Hypothermia, initial encounter (2) UTI (urinary tract infection) Hematuria presence: with hematuria Urinary tract infection type: site unspecified Qualified Code(s): N39.0 - Urinary tract infection, site not specified; R31.9 - Hematuria, unspecified
--- NOTE | 2019-10-05 17:25 | Emergency Department Note ---
Entered by Brenna Quispe acting as a scribe for Albert Arriola History of Present Illness General Chief complaint: Fever Stated complaint: FEVER, COUGH Time Seen by Provider: 10/05/19 12:46 History of Present Illness Provider complaint: fever Onset (ago): day(s) 1 Pain Consistency: + other (episode) Quality: + other (fever) Associated symptoms: + denies other symptoms (abdominal pain), + fever/chills (around 99.5 F) and + nausea/vomiting (twice) Treatments prior to arrival: other (Motrin and Sudafed at 0800 this morning) The patient is a 49 year old female who presents to the ED with complaints of an episodes of a fever that started 1 day ago. Per mother, the patients fever has been around 99.5 F which is much higher than she normally is at baseline. Per mother, the patient has also had increased secretions which has caused her to have to change the patients container twice as much as she usually does. Per mother, the patient has been crying when she coughs, and has been complaining of a sore throat and headache. Per mother, there has not been blood present when the patient coughs, only mucous. Per mother, the patients throat has looked white. The patient states that she irrigated the patients suprapubic catheter this morning because her urine appeared cloudy. Per mother, the patient has not been acting herself lately and she has vomited twice in the past few days. The patients mother states that they gave the patient Motrin and Sudafed this morning at 0800. The patient denies abdominal pain. Home Medications Home Medications Medication Instructions Recorded Confirmed Type diazepam 5 mg PO BID 11/14/18 10/05/19 History guaifenesin 600 mg PO QAM 11/14/18 10/05/19 History lamotrigine 100 mg PO BID 11/14/18 10/05/19 History magnesium oxide 200 mg PO Q2D 11/14/18 10/05/19 History magnesium oxide 400 mg PO Q2D 11/14/18 10/05/19 History multivitamin 1 tab PO QAM 11/14/18 10/05/19 History pseudoephedrine HCl [Sudafed] 30 mg PO DIRECTED PRN 11/14/18 10/05/19 History carbamazepine [Tegretol] 400 mg PO BID 01/15/19 10/05/19 History divalproex 625 mg PO BID 01/15/19 10/05/19 History levothyroxine 88 mcg PO QAM 10/05/19 10/05/19 History Allergies Allergy/AdvReac Type Severity Reaction Status Date / Time phenobarbital AdvReac Intermediate depresssed Verified 10/05/19 14:13 Past Med/Surg History Medical History Seizure disorder Paraplegia (Chronic) Had seizure and suffered epidural T2 and T3 which caused paraplegia Generalized epilepsy (Chronic 09/22/11) Mental retardation (Chronic) Chronic constipation Larson catheter in place Gastrointestinal tube present Holden filter in place 2014 -Placed after back surgery prophylactically History of ARDS 2008 Hx of deep venous thrombosis left arm d/t central line Hx of dislocation right elbow Hx of fracture ankle d/t seizures Hx of ovarian cancer Hx of recurrent urinary tract infection had 3-4 over past year - Just finished ABX 01/11/2019 Hypothyroid Tracheostomy dependence 2014 - after back surgery was unable to be weaned from the ventilator. Has had chronic problems being weaned from the ventilator. Surgical History Difficult ventilator weaning 2014 - post op back surgery History of ankle surgery left ankle History of back surgery 2014 History of cardiac cath [place] 2015 Hx of hysterectomy, total 2008 Family History Other No pertinent family history in first degree relatives Social History Preferred Language: Maori Communication Ability: Impaired Harmonic Analyst Required: No Beliefs That Will Affect Care: None Current Living Situation: Family Other Information That Helps Us Care for You: No Feels Safe at Home: Yes Smoking Status: Never smoker Second Hand Exposure: No ; Hx Alcohol Use: No Hx Substance Use: No Review of Systems See HPI for pertinent positives & negatives. and A total of 10 systems reviewed and were otherwise negative Physical Exam Vital Signs Vital Signs - 24 hr 10/05/19 12:39 10/05/19 14:14 10/05/19 14:17 Temperature 36.2 C L Temperature Source Oral Sepsis Recent Fever Within 48 Hours No Sepsis New/Unexplained Change in Mental Status No Sepsis Action Taken by Nursing No Action Required Pulse Rate 72 70 73 Pulse Rate [Apical] Pulse Rate from SpO2 Sensor 72 Pulse Rhythm [Apical] Respiratory Rate 18 20 13 Respiratory Effort / Characteristics Respiratory Depth Normal Respiratory Pattern Blood Pressure 141/82 H Blood Pressure [Right Arm] Blood Pressure Mean 101 Blood Pressure Mean [Right Arm] Pulse Oximetry 97 96 96 Oxygen Delivery Method Room Air Room Air 10/05/19 14:30 10/05/19 14:41 10/05/19 14:54 Temperature 35.4 C L Temperature Source Rectal Sepsis Recent Fever Within 48 Hours Sepsis New/Unexplained Change in Mental Status Sepsis Action Taken by Nursing Pulse Rate 71 71 Pulse Rate [Apical] Pulse Rate from SpO2 Sensor 69 71 Pulse Rhythm [Apical] Respiratory Rate 26 H 14 Respiratory Effort / Characteristics Respiratory Depth Respiratory Pattern Blood Pressure 142/96 H Blood Pressure [Right Arm] Blood Pressure Mean 111 Blood Pressure Mean [Right Arm] Pulse Oximetry 94 94 Oxygen Delivery Method 10/05/19 15:00 10/05/19 15:25 10/05/19 15:30 Temperature 35.3 C L Temperature Source Rectal Sepsis Recent Fever Within 48 Hours Sepsis New/Unexplained Change in Mental Status Sepsis Action Taken by Nursing Pulse Rate 69 71 Pulse Rate [Apical] 65 Pulse Rate from SpO2 Sensor 69 71 Pulse Rhythm [Apical] Regular Respiratory Rate 13 12 Respiratory Effort / Characteristics Non-Labored Spontaneous Respiratory Depth Normal Respiratory Pattern Regular Blood Pressure 147/89 H 152/96 H Blood Pressure [Right Arm] 147/89 H Blood Pressure Mean 108 114 Blood Pressure Mean [Right Arm] 108 Pulse Oximetry 94 98 Oxygen Delivery Method Room Air 10/05/19 15:53 10/05/19 16:00 10/05/19 16:30 Temperature Temperature Source Sepsis Recent Fever Within 48 Hours Sepsis New/Unexplained Change in Mental Status Sepsis Action Taken by Nursing Pulse Rate 74 72 73 Pulse Rate [Apical] Pulse Rate from SpO2 Sensor 74 72 74 Pulse Rhythm [Apical] Respiratory Rate 14 22 17 Respiratory Effort / Characteristics Respiratory Depth Respiratory Pattern Blood Pressure 146/98 H 149/95 H 144/87 H Blood Pressure [Right Arm] Blood Pressure Mean 114 113 106 Blood Pressure Mean [Right Arm] Pulse Oximetry 97 98 97 Oxygen Delivery Method 10/05/19 16:45 10/05/19 17:00 Temperature 35.8 C L Temperature Source Rectal Sepsis Recent Fever Within 48 Hours Sepsis New/Unexplained Change in Mental Status Sepsis Action Taken by Nursing Pulse Rate 75 Pulse Rate [Apical] Pulse Rate from SpO2 Sensor 75 Pulse Rhythm [Apical] Respiratory Rate 15 Respiratory Effort / Characteristics Respiratory Depth Respiratory Pattern Blood Pressure 154/97 H Blood Pressure [Right Arm] Blood Pressure Mean 116 Blood Pressure Mean [Right Arm] Pulse Oximetry 94 Oxygen Delivery Method NECK: Trach in place. CV: Normal rate, regular rhythm, normal heart sounds and intact distal pulses. There is no peripheral edema. Palpable radial pulses bue. PULM/CHEST: Ronchi bilaterally. ABD: Peg tube in place, suprapubic catheter in place. NEURO: At baseline per family. SKIN: Skin is warm and dry. She is not diaphoretic. Course 1249: Past medical records reviewed. The patient was evaluated in room B10. A complete history and physical exam was performed. 1449: Labs within normal limits, X-Ray within normal limits, urine and influenza pending. Rectal temperature of 35.4 C. The patient has not had any prolonged exposure to the cold and she has been well-dressed by her family. Patient has history of hypothermia which were attributed to hypothyroidism and infection in the past. Patient was placed on a rome hugger and we will continue to monitor the patient. 1544: Patient remains hypothermic as rome hugger use continued. Patient's urine appeared to be infected. Given the patint's UTI, hypothermia and slight susce ptibility to becoming septic, patient will be admitted and given IV antibiotics for the UTI. TSH is high, T4 is within normal limits. Patient's previous urine cultures in February showed Klebsiella, Oxytoca, Enterococcus, and MRSA. MRSA was thought to be due to contaminant. Sensitivity and resistance of the Klebsiella and Enterococcus was reviewed with the pharmacist and we thought Zosyn would be the most appropriate antibiotic for coverage of the possible Klebsiella and Enterococcus considering she has a trach. Zosyn also covers against any aspiration pneumonia not seen on the chest X-Ray at this time. I discussed the patient's case with Dr. Lara [facility] Hospitalist. She will evaluate the patient for further management. Consultations Consultation #1: I discussed the patient's case with Dr. Lara [facility] Ho spitalist. She will evaluate the patient for further management. Time: 15:56 Administered Medications Piperacillin Sod/Tazobactam Sod (Zosyn) 4.5 gm in 120 mls @ 30 mls/hr IV NOW ONE Stop: 10/05/19 20:01 Last Admin: 10/05/19 16:07 Dose: 30 mls/hr Documented by: [id number] Medical Decision Making Medical Records Attestation: I reviewed the patient's medical records. Home Medications Current Medication List: was personally reviewed by me Laboratory Data Attestation: I reviewed the patient's lab results. Result diagrams: 10/05/19 13:33 10/05/19 13:33 Lab Results 10/05/19 10/05/19 10/05/19 Range/Units 13:33 13:33 13:33 WBC 4.87 (4.8-10.8) K/uL RBC 3.77 L (4.2-5.4) M/uL Hgb 12.1 (12.0-16.0) g/dL Hct 34.4 L (37-47) % MCV 91.2 (80-100) fL MCH 32.1 (25-34) pg MCHC 35.2 (32-36) g/dL RDW Std Deviation 49.2 H (36.4-46.3) fL RDW Coeff of Nazanin 14.8 H (11.5-14.5) % Plt Count 123 L (130-400) K/uL MPV 9.4 (7.4-10.4) fL Immature Gran % (Auto) 0.2 % Neut % (Auto) 65.9 % Lymph % (Auto) 19.9 % [place] % (Auto) 13.8 % Eos % (Auto) 0.0 % Baso % (Auto) 0.2 % Immature Gran # (Auto) 0.01 (0.00-0.02) K/uL Neut # (Auto) 3.21 (1.4-6.5) K/uL Lymph # (Auto) 0.97 L (1.2-3.4) K/uL [place] # (Auto) 0.67 H (0.11-0.59) K/uL Eos # (Auto) 0.00 (0-0.5) K/uL Baso # (Auto) 0.01 (0-0.2) K/uL VBG pH (7.36-7.41) VBG pCO2 (38-50) mmHg VBG pO2 mmHg VBG HCO3 mmol/L VBG O2 Saturation % VBG Base Excess mEq/L Barometric Pressure mm/Hg Sodium 131 L (136-145) mmol/L Potassium 4.1 (3.5-5.1) mmol/L Chloride 96 L (98-107) mmol/L Carbon Dioxide 25 (21-32) mmol/L Anion Gap 10.0 (3-11) BUN 16 (7-18) mg/dl Creatinine 0.46 L (0.6-1.2) mg/dl Est Cr Clr Drug Dosing Not Reportable Est GFR ( Amer) 137.3 Est GFR (Non-Af Amer) 118.5 BUN/Creatinine Ratio 34.9 H (10-20) Glucose 89 (70-99) mg/dl Lactate 0.7 (0.4-2.0) mmol/L Calcium 9.4 (8.5-10.1) mg/dl Magnesium 1.9 (1.8-2.4) mg/dl Total Bilirubin 0.2 (0.2-1) mg/dl Direct Bilirubin < 0.1 (0-0.2) mg/dl AST 17 (15-37) U/L ALT 18 (12-78) U/L Alkaline Phosphatase 84 (45-117) U/L Troponin I < 0.015 (0-0.045) ng/ml Total Protein 6.9 (6.4-8.2) gm/dl Albumin 3.1 L (3.4-5.0) gm/dl Lipase 198 (73-393) U/L TSH (0.300-4.500) uIu/ml Free T4 (0.8-1.6) ng/dl Urine Color Urine Appearance (Clear) Urine pH (4.5-7.5) Ur Specific [place] (1.000-1.030) Urine Protein (Negative) Urine Glucose (UA) (Negative) Urine Ketones (Negative) Urine Blood (Negative) Urine Nitrite (Negative) Urine Bilirubin (Negative) Urine Urobilinogen (Negative) Ur Leukocyte Esterase (Negative) Urine WBC (Auto) (0-5) /hpf Urine RBC (Auto) (0-4) /hpf U Hyaline Cast (Auto) (0-5) /lpf U Epithel Cells (Auto) (0-5) /lpf Urine Bacteria (Auto) (Negative) Influenza Type A (PCR) (Neg) Influenza Type B (PCR) (Neg) 10/05/19 10/05/19 10/05/19 Range/Units 13:33 13:33 13:33 WBC (4.8-10.8) K/uL RBC (4.2-5.4) M/uL Hgb (12.0-16.0) g/dL Hct (37-47) % MCV (80-100) fL MCH (25-34) pg MCHC (32-36) g/dL RDW Std Deviation (36.4-46.3) fL RDW Coeff of Nazanin (11.5-14.5) % Plt Count (130-400) K/uL MPV (7.4-10.4) fL Immature Gran % (Auto) % Neut % (Auto) % Lymph % (Auto) % [place] % (Auto) % Eos % (Auto) % Baso % (Auto) % Immature Gran # (Auto) (0.00-0.02) K/uL Neut # (Auto) (1.4-6.5) K/uL Lymph # (Auto) (1.2-3.4) K/uL [place] # (Auto) (0.11-0.59) K/uL Eos # (Auto) (0-0.5) K/uL Baso # (Auto) (0-0.2) K/uL VBG pH 7.40 (7.36-7.41) VBG pCO2 45 (38-50) mmHg VBG pO2 46 mmHg VBG HCO3 27 mmol/L VBG O2 Saturation 82.0 % VBG Base Excess 1.6 mEq/L Barometric Pressure 731.3 mm/Hg Sodium (136-145) mmol/L Potassium (3.5-5.1) mmol/L Chloride (98-107) mmol/L Carbon Dioxide (21-32) mmol/L Anion Gap (3-11) BUN (7-18) mg/dl Creatinine (0.6-1.2) mg/dl Est Cr Clr Drug Dosing Est GFR ( Amer) Est GFR (Non-Af Amer) BUN/Creatinine Ratio (10-20) Glucose (70-99) mg/dl Lactate (0.4-2.0) mmol/L Calcium (8.5-10.1) mg/dl Magnesium (1.8-2.4) mg/dl Total Bilirubin (0.2-1) mg/dl Direct Bilirubin (0-0.2) mg/dl AST (15-37) U/L ALT (12-78) U/L Alkaline Phosphatase (45-117) U/L Troponin I Cancelled (0-0.045) ng/ml Total Protein (6.4-8.2) gm/dl Albumin (3.4-5.0) gm/dl Lipase (73-393) U/L TSH 5.370 H (0.300-4.500) uIu/ml Free T4 1.32 (0.8-1.6) ng/dl Urine Color Urine Appearance (Clear) Urine pH (4.5-7.5) Ur Specific [place] (1.000-1.030) Urine Protein (Negative) Urine Glucose (UA) (Negative) Urine Ketones (Negative) Urine Blood (Negative) Urine Nitrite (Negative) Urine Bilirubin (Negative) Urine Urobilinogen (Negative) Ur Leukocyte Esterase (Negative) Urine WBC (Auto) (0-5) /hpf Urine RBC (Auto) (0-4) /hpf U Hyaline Cast (Auto) (0-5) /lpf U Epithel Cells (Auto) (0-5) /lpf Urine Bacteria (Auto) (Negative) Influenza Type A (PCR) (Neg) Influenza Type B (PCR) (Neg) 10/05/19 10/05/19 Range/Units 14:16 14:36 WBC (4.8-10.8) K/uL RBC (4.2-5.4) M/uL Hgb (12.0-16.0) g/dL Hct (37-47) % MCV (80-100) fL MCH (25-34) pg MCHC (32-36) g/dL RDW Std Deviation (36.4-46.3) fL RDW Coeff of Nazanin (11.5-14.5) % Plt Count (130-400) K/uL MPV (7.4-10.4) fL Immature Gran % (Auto) % Neut % (Auto) % Lymph % (Auto) % [place] % (Auto) % Eos % (Auto) % Baso % (Auto) % Immature Gran # (Auto) (0.00-0.02) K/uL Neut # (Auto) (1.4-6.5) K/uL Lymph # (Auto) (1.2-3.4) K/uL [place] # (Auto) (0.11-0.59) K/uL Eos # (Auto) (0-0.5) K/uL Baso # (Auto) (0-0.2) K/uL VBG pH (7.36-7.41) VBG pCO2 (38-50) mmHg VBG pO2 mmHg VBG HCO3 mmol/L VBG O2 Saturation % VBG Base Excess mEq/L Barometric Pressure mm/Hg Sodium (136-145) mmol/L Potassium (3.5-5.1) mmol/L Chloride (98-107) mmol/L Carbon Dioxide (21-32) mmol/L Anion Gap (3-11) BUN (7-18) mg/dl Creatinine (0.6-1.2) mg/dl Est Cr Clr Drug Dosing Est GFR ( Amer) Est GFR (Non-Af Amer) BUN/Creatinine Ratio (10-20) Glucose (70-99) mg/dl Lactate (0.4-2.0) mmol/L Calcium (8.5-10.1) mg/dl Magnesium (1.8-2.4) mg/dl Total Bilirubin (0.2-1) mg/dl Direct Bilirubin (0-0.2) mg/dl AST (15-37) U/L ALT (12-78) U/L Alkaline Phosphatase (45-117) U/L Troponin I (0-0.045) ng/ml Total Protein (6.4-8.2) gm/dl Albumin (3.4-5.0) gm/dl Lipase (73-393) U/L TSH (0.300-4.500) uIu/ml Free T4 (0.8-1.6) ng/dl Urine Color Yellow Urine Appearance Clear (Clear) Urine pH 6.5 (4.5-7.5) Ur Specific [place] 1.013 (1.000-1.030) Urine Protein Negative (Negative) Urine Glucose (UA) Negative (Negative) Urine Ketones Trace H (Negative) Urine Blood Trace H (Negative) Urine Nitrite Positive A (Negative) Urine Bilirubin Negative (Negative) Urine Urobilinogen Negative (Negative) Ur Leukocyte Esterase 2+ H (Negative) Urine WBC (Auto) 10-30 H (0-5) /hpf Urine RBC (Auto) 0-4 (0-4) /hpf U Hyaline Cast (Auto) 1-5 (0-5) /lpf U Epithel Cells (Auto) 0-5 (0-5) /lpf Urine Bacteria (Auto) 2+ H (Negative) Influenza Type A (PCR) Neg for Influ A (Neg) Influenza Type B (PCR) Neg for Influ B (Neg) Imaging Data Radiologist's Impression: Radiology results as stated below per my review and the radiologist's interpretation: XR abdomen 2V w PA chest CLINICAL HISTORY: 49 years-old Female presenting with cough vomiting. TECHNIQUE: PA view of the chest and supine and left lateral decubitus views of the abdomen were obtained. COMPARISON: Chest x-ray from 01/17/2019. FINDINGS: Low lung volumes with hypoventilatory changes and elevation of the right hemidiaphragm. Tracheostomy tube in place. Prominence of the cardiac silhouette, which may relate to hypoventilatory change. Pulmonary vasculature mildly prominent. No focal opacity. No large effusion or pneumothorax. Gastrostomy tube in place. Nonobstructive bowel gas pattern. Mild to moderate stool burden throughout the colon. No gross pneumoperitoneum. IVC filter projects at the level of L2. Allowing for stool burden, possible punctate right renal calculus. No calcifications along the courses of the ureters. A surgical clip may be in place in the right pelvis. Osseous structures normal. IMPRESSION: 1. Low lung volumes with hypoventilatory changes. 2. Possible mild volume overload. 3. Stool burden suggests constipation. 4. No bowel obstruction Electronically signed by: Scottie Guzman M.D. 10/05/2019 2:17 PM ECG Data Attestation: I personally reviewed and interpreted this ECG as follows: Indication: + weakness Rate (beats per minute): 72 Rhythm: + sinus rhythm ECG Intervals/blocks: + First degree AV block ECG ST segments: + T-wave inversions (in 2, 3, AVf, and V3 through V6) ECG Findings: + Other (FL 220, QTC and QRS within normal limits) Blood Pressure Blood Pressure Findings: Elevated blood pressure Blood Pressure Disposition: Referred to patients primary care provider [facility] Narrative 1249: Past medical records reviewed. The patient was evaluated in room B10. A co mplete history and physical exam was performed. 1449: Labs within normal limits, X-Ray within normal limits, urine and influenza pending. Rectal temperature of 35.4 C. The patient has not had any prolonged exposure to the cold and she has been well-dressed by her family. Patient has history of hypothermia which were attributed to hypothyroidism and infection in the past. Patient was placed on a rome hugger and we will continue to monitor the patient. 1544: Patient remains hypothermic as rome hugger use continued. Patient's urine appeared to be infected. Given the patint's UTI, hypothermia and slight susceptibility to becoming septic, patient will be admitted and given IV antibiotics for the UTI. TSH is high, T4 is within normal limits. Patient's previous urine cultures in February showed Klebsiella, Oxytoca, Enterococcus, and MRSA. MRSA was thought to be due to contaminant. Sensitivity and resistance of the Klebsiella and Enterococcus was reviewed with the pharmacist and we thought Zosyn would be the most appropriate antibiotic for coverage of the possible Klebsiella and Enterococcus considering she has a trach. Zosyn also covers against any aspiration pneumonia not seen on the chest X-Ray at this time. I discussed the patient's case with Dr. Du- [facility] Hospitalist. She will evaluate the patient for further management. Impression & Plan Hypothermia, UTI (urinary tract infection) Critical Care Time Critical Care Time: Yes Total Critical Care Time: 40 I have personally spent 40 minutes of critical care time in the direct management of this patient. This includes bedside care, interpretation of diagnostic studies, and testing, discussion with consultants, patient, and family members, and other required patient management activities. This 40 minutes is in excess of all separately billable procedures. Discharge Plan Visit Data Chief Complaint: Fever Stated Complaint: FEVER, COUGH ED Provider: Albert Arriola Discharge Problem: Hypothermia, UTI (urinary tract infection) Patient Disposition: Being Evaluated by Hospitalist Discharge Instructions Interventions: ED Discharge Assessment Last Done: 10/05/19 17:14 Forms Stand Alone Forms: My [facility] [employer] Prescriptions Prescriptions: No Action lamotrigine 100 mg tablet 100 mg PO BID RF: 0 diazepam 5 mg tablet 5 mg PO BID RF: 0 multivitamin Tablet 1 tab PO QAM RF: 0 pseudoephedrine HCl [Sudafed] 30 mg Tablet 30 mg PO DIRECTED PRN (Reason: Nasal Congestion) RF: 0 magnesium oxide 200 mg magnesium Tablet 200 mg PO Q2D RF: 0 magnesium oxide 200 mg magnesium Tablet 400 mg PO Q2D RF: 0 guaifenesin 600 mg Tablet Extended Release 12hr 600 mg PO QAM RF: 0 levothyroxine 88 mcg tablet 88 mcg PO QAM RF: 0 carbamazepine [Tegretol] 200 mg Tablet 400 mg PO BID RF: 0 divalproex 125 mg Capsule, Delayed Rel Sprinkle 625 mg PO BID RF: 0 Referrals Referrals: Robin Hernandez D.O. [Primary Care Provider] - Discharge Problem: Hypothermia Qualifiers: Encounter type: initial encounter Qualified Code(s): T68.XXXA - Hypothermia, initial encounter UTI (urinary tract infection) Qualifiers: Urinary tract infection type: site unspecified Hematuria presence: with hematuria Qualified Code(s): N39.0 - Urinary tract infection, site not specified The scribe's documentation has been prepared under my direction and personally reviewed by me in its entirety. I confirm that the note above accurately reflects all work, treatment, procedures, and medical decision making performed by me.
[2019-10-05] MEDS ORDERED: PIPERACILL/TAZOBAC CONSULT ACTIVE PRN (18:14)
[2019-10-05] MEDS ORDERED: PSEUDOEPHEDRINE HCL 30 MG TAB PO PRN (18:14)
[2019-10-05] MEDS ORDERED: MAGNESIUM HYDROXIDE SUSP 30 ML UDC PO PRN (18:14)
[2019-10-05] MEDS ORDERED: ACETAMINOPHEN 325 MG TAB PO PRN (18:14)
[2019-10-05] MEDS ORDERED: ONDANSETRON INJ 2 MG/ML 2 ML VIAL IV PRN (18:14)
[2019-10-05] MEDS ORDERED: diazePAM 5 MG TABLET PO SCH (18:30)
[2019-10-05] MEDS ORDERED: DIVALPROEX SODIUM SPRINKLE 125 MG CAP PO SCH (19:00)
[2019-10-05] MEDS ORDERED: PATIENT'S HEIGHT AND/OR WEIGHT NEEDED SCH (19:00)
[2019-10-05] MEDS ORDERED: lamoTRIgine 100 MG TAB PO SCH (21:00)
[2019-10-05] MEDS ORDERED: carBAMazepine 200 MG TABLET PO SCH (21:00)
[2019-10-05] MEDS: PIPERACILLIN/TAZOBACTAM 4.5 GM in DEXTROSE 5% 100 ML IV SCH (22:10)
[2019-10-06 04:20] VITALS: PULSE 76
[2019-10-06] MEDS: PIPERACILLIN/TAZOBACTAM 4.5 GM in DEXTROSE 5% 100 ML IV SCH (05:41)
[2019-10-06 06:27] LABS: Eosinophils # (auto) 0.03 K/uL (0-0.5); Hematocrit (blood only) 34.5 % (37-47); Hemoglobin 12.2 g/dL (12.0-16.0); Immature Granulocytes # (auto) 0.01 K/uL (0.00-0.02); Immature Granulocytes % (auto) 0.3 %; Lymphocytes % (auto) 31.7 %; Mean Corpuscular Hemoglobin 32.4 pg (25-34); Mean Corpuscular Hgb Conc 35.4 g/dL (32-36); Mean Corpuscular Volume 91.5 fL (80-100); Mean Platelet Volume 9.1 fL (7.4-10.4); Monocytes % (auto) 25.4 %; Neutrophils # (auto) 1.31 K/uL (1.4-6.5); Neutrophils % (auto) 41.6 %; Platelet Count 132 K/uL (130-400); RDW Coefficient of Variation 14.9 % (11.5-14.5); RDW Standard Deviation 50.3 fL (36.4-46.3); Red Blood Count 3.77 M/uL (4.2-5.4); White Blood Count 3.15 K/uL (4.8-10.8)
[2019-10-06 06:59] LABS: BUN Creatinine Ratio 25.6 (10-20); Calcium 9.2 mg/dl (8.5-10.1); Creatinine Clr Calc Pharmacy 134.2 ml/min; Est GFR (African American) 132.7; Est GFR (Non-African American) 114.5; Potassium 4.2 mmol/L (3.5-5.1)
[2019-10-06] MEDS ORDERED: guaiFENesin 600 MG TABCR PO SCH ×2 (07:00→08:00)
[2019-10-06] MEDS ORDERED: TEGRETOL 200 MG PO SCH (08:00)
[2019-10-06] MEDS ORDERED: MAGNESIUM OXIDE 400 MG TAB PO SCH (08:00)
[2019-10-06] MEDS ORDERED: diazePAM 5 MG TABLET PO SCH (08:00)
[2019-10-06] MEDS ORDERED: MULTIVITAMIN TAB PO SCH (09:00)
[2019-10-06] MEDS ORDERED: LEVOTHYROXINE SODIUM 88 MCG TABLET PO SCH (10:30)
--- NOTE | 2019-10-06 10:33 | Discharge Summary ---
Date of Service October 06, 2019 Admission HPI Per Admitting Provider 49 y/o F who was brought in today by parents for concerns of elevated temps Pt is generally with low temps for the last year. They have been working with PCP to determine the cause. She generally runs around 97.3, however for the last two days her temp has been 99.5. Pt has been showing other signs that she might have an infection recently. She had two days of emesis earlier this week. This has resolved. She has had increased coughing to the point of drawing tears over the last week. Pt frequently has food stuck in her trach that family removes, so there was concern that she may have aspirated with all of this coughing because she has been having increased secretions. Pt has also had a decreased appetite overall. Pt has had no complaints of pain, but family states that she does not usually tell them that information. She is generally constipated with mild abd distention. No change in abd distention. Pt did have a few loose stool s/p miralax dosing, but this is common. Family states pt has daily seizure activity. She did have an increase in "high grade" seizures the last few days, so possibly increased seizures. Pt has a PEG, however this is for water administration only. Pt takes PO meals and meds. Family denies SOB, chest pain, abd pain, c/d, LE pain or swelling concerns for pt. Pt has a suprapubic catheter in place since February and UOP has been at its usual. Admission Exam Per Admitting Provider Constitutional: WD/WN, vitals as above Eyes: normal visual rivas by confrontation and + anicteric sclerae Neck: normal visual inspection and trachea midline Respiratory: difficult exam as pt will not take a deep breath in. She will give a forceful exhale. No wheezing or crackles noted. Air movement seems adequate. 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 She has had no cough and her trach suctioning is back to normal. There has been no seizure activity today. She ate much better last night and today than recently. Family denies fever, SOB, chest pain, abd pain, n/v/c/d, LE pain or swelling. She has not needed a warmer blanket since coming up from the ED. They would prefer to take pt home JAE given her risks for other infections while hospitalized, as well as issues with skin breakdown that have occurred when hospitalized in the past. Discharge Exam Constitutional: WD/WN, vitals as above Eyes: normal visual rivas by confrontation and + anicteric sclerae Neck: normal visual inspection and trachea midline Respiratory: difficult exam as pt will not take a deep breath in, but does give a good, forceful exhale. No wheezing or crackles noted. Air movement seems adequate. Cardiovascular: Rate/Rhythm: regular rate and regular rhythm Gastrointestinal (Abdomen): Inspection/Auscultation: + abdomen distended Percussion/Palpation: abdomen soft; abdomen nontender Musculoskeletal: Head/Neck/Chest: normocephalic and head atraumatic negative for edema, peripheral pulses intact Skin: no rashes, warm and dry Neurologic: awake Makes eye contact to name, follows basic commands, does not speak Psychiatric: Orientation: oriented to person and cooperative Eye Contact: good eye contact Speech: + mute Discharge Data Allergies Allergy/AdvReac Type Severity Reaction Status Date / Time phenobarbital AdvReac Intermediate depresssed Verified 10/05/19 14:13 Consultations 10/05/19 16:07 ED Decision to Admit Stat 10/05/19 18:14 Consult Case Management - Discharge Planning Routine Hospital Course (1) UTI (urinary tract infection): UA as noted in the ED, cx pending Likely due to chronic catheter status Started on zosyn in the ED given resistance pattern noted on cx 02/2019, will cover with levaquin based on same sensitivity Of note, blood cx resulted around 6:30p on DOD with 1/2 + for gram + cocci--likely contaminent, will monitor Urine cx pending on d/c (2) PNA (pneumonia): High risk for aspiration Increased secretions on admission per family and now back to baseline Zosyn initially, levaquin will cover (3) Hyponatremia: Baseline is 127, 131 on admission Monitor (4) Hypothermia: Chronic issue, working with PCP and renal to determine cause Baseline temp is 97.3 (5) Tracheostomy tube present: High risk for pseudomonas Family provides trach care (6) Chronic indwelling Larson catheter: High risk for UTI Placed 02/2019 (7) Seizure disorder: Baseline is daily seizure activity Has to take brand name tegretol Dosing recently adjusted, due to be checked and was at 9.8, they will d/w neuro if needed (8) Paraplegia: As noted PEG in place for water use only PO meals otherwise (9) Hypothyroid: TSH with mild elevation at 5.3 Continue with current dosing (10) DVT prophylaxis: [place] filter in place SCDs Baseline status is immobile Will not cover further to avoid GIB Total Time Total Time Spent Total Time Spent (In Minutes): >30 Discharge Plan Discharge Items Patient Disposition: Home - Self-Care Reason For Visit: FEVER Discharge Diagnosis: UTI, possible PNA Activity: Resume your previous activity Non-emergency contact: Primary Care Provider and Urologist Call non-emergency contact if: you have any medication questions, your symptoms worsen and you have a fever Follow-up/Referrals: Robin Hernandez D.O. [Primary Care Provider] - Diet: Regular Addtl Attending Provider Instructions: You will be discharged on an antibiotic that was chosen based on a prior urine culture. This antibiotic will also cover for more atypical types of bacteria if there was indeed a pneumonia that was not seen on the chest xray. As we discussed, there is a chance that the urine culture done in the ED yesterday may result with a different preferred antibiotic choice. If this is the case, we will call you to let you know of the change. In the meantime, I agree with you that having Ms. Pickens in the hospital the least amount of time is in her best interest and given her improvement, it will be acceptable to arrange for discharge today with close follow up. Please return to the ED if her symptoms return or there are new concerns. You should follow up with your urologist as scheduled You should follow up with Dr. Torres as scheduled You should follow up with Dr. Murrell in the next 1-2 weeks Pending Studies at Discharge: Yes Studies:: urine culture Stand-Alone Forms: [employer], Smoking Cessation Medications and DC Order Prescriptions: New levofloxacin 750 mg tablet 750 mg PO DAILY 14 Days Qty: 14 RF: 0 Continued lamotrigine 100 mg tablet 100 mg PO BID RF: 0 diazepam 5 mg tablet 5 mg PO BID RF: 0 multivitamin Tablet 1 tab PO QAM RF: 0 pseudoephedrine HCl [Sudafed] 30 mg Tablet 30 mg PO DIRECTED PRN (Reason: Nasal Congestion) RF: 0 magnesium oxide 200 mg magnesium Tablet 200 mg PO Q2D RF: 0 magnesium oxide 200 mg magnesium Tablet 400 mg PO Q2D RF: 0 guaifenesin 600 mg Tablet Extended Release 12hr 600 mg PO QAM RF: 0 levothyroxine 88 mcg tablet 88 mcg PO QAM RF: 0 carbamazepine [Tegretol] 200 mg Tablet 400 mg PO BID RF: 0 divalproex 125 mg Capsule, Delayed Rel Sprinkle 625 mg PO BID RF: 0 Discharge Orders: Discharge Order (Routine); Ordered 10/06/19 Ordered By: Nuria Workman/Other Patient Handouts: Levofloxacin Oral tablet Admission Data Admit Date/Time: 10/05/19 16:40 Attending Provider: Nuria Du Admit Provider: Nuria Du Primary Care Provider: Robin Hernandez Other Providers: Nuria Du Other Interventions: Discharge Summary Assessment (RN) Last Done: 10/06/19 10:56 DC Date/Time DO NOT enter until pt leaves facility: 10/06/19 11:45
[2019-10-06 11:12] VITALS: BP 93/62; TEMP 97.9; O2SAT 96
[2019-10-07] MEDS ORDERED: MAGNESIUM OXIDE 400 MG TAB PO SCH (08:00)
== END 2019-10-06 11:45 | disposition home or self-care (01) | DRG 698 ==
LOC: ED 12:31 → 2S 16:40

== ENCOUNTER 2019-12-22 17:32 | Inpatient (IN) ==
[2019-12-22] MEDS ORDERED: ALBUT/IPRATROP 3MG/0.5MG NEB 3 ML VIAL NEB ONE (19:03)
--- NOTE | 2019-12-22 19:44 | XRay Report ---
XR chest 1V portable CLINICAL HISTORY: sob dyspnea COMPARISON STUDY: 10/05/2019 FINDINGS: Moderate cardiomegaly. Chronic elevation right hemidiaphragm. Poorly defined infiltrate lef t base. Pulmonary apices are clear. IMPRESSION: Poorly defined parenchymal infiltrate left base. ACT 112: Negative or not required by law. The above report was generated using voice recognition software. It may contain grammatical, syntax or spelling errors. Electronically signed by: Jae Villeda M.D. 12/22/2019 7:43 PM
[2019-12-22 19:49] LABS: Influenza A virus by PCR Neg for Influ A (Neg); Influenza B virus by PCR Neg for Influ B (Neg)
[2019-12-22] MEDS ORDERED: cefTRIAXone SODIUM 2,000 MG/70 ML BAG IV STA (21:21)
[2019-12-22] MEDS ORDERED: AZITHROMYCIN 500 MG in DEXTROSE 5% 250 ML IV ONE (21:21)
[2019-12-22] MEDS ORDERED: AZITHROMYCIN 250 MG TAB ONE (22:12)
[2019-12-22 22:25] LABS: Appearance Urine Clear (Clear); Bacteria Urine Automated 1+ (Negative); Bilirubin Urine Negative (Negative); Blood Urine Negative (Negative); Color Urine Yellow; Glucose Urine UA Negative (Negative); Ketones Urine Negative (Negative); Leukocyte Esterase Urine Trace (Negative); Nitrite Urine Positive (Negative); Protein Urine Negative (Negative); RBC Urine Automated 0-4 /hpf (0-4); Urobilinogen Urine Negative (Negative); pH Urine 7.5 (4.5-7.5)
[2019-12-22 22:27] LABS: Basophils # (auto) 0.02 K/uL (0-0.2); Basophils % (auto) 0.3 %; Eosinophils # (auto) 0.02 K/uL (0-0.5); Eosinophils % (auto) 0.3 %; Hematocrit (blood only) 31.5 % (37-47); Hemoglobin 11.1 g/dL (12.0-16.0); Immature Granulocytes # (auto) 0.02 K/uL (0.00-0.02); Immature Granulocytes % (auto) 0.3 %; Lymphocytes # (auto) 0.84 K/uL (1.2-3.4); Lymphocytes % (auto) 13.7 %; Mean Corpuscular Hemoglobin 32.6 pg (25-34); Mean Corpuscular Hgb Conc 35.2 g/dL (32-36); Mean Corpuscular Volume 92.4 fL (80-100); Mean Platelet Volume 9.9 fL (7.4-10.4); Monocytes # (auto) 1.35 K/uL (0.11-0.59); Neutrophils # (auto) 3.88 K/uL (1.4-6.5); Neutrophils % (auto) 63.4 %; Platelet Count 132 K/uL (130-400); RDW Coefficient of Variation 14.7 % (11.5-14.5); RDW Standard Deviation 50.1 fL (36.4-46.3); Red Blood Count 3.41 M/uL (4.2-5.4); White Blood Count 6.13 K/uL (4.8-10.8)
[2019-12-22 22:35] LABS: Base Excess VBG 1.3 mEq/L; HCO3 VBG 28 mmol/L; Oxygen Saturation VBG < 60.0 %; PCO2 VBG 50 mmHg (38-50); PO2 VBG 34 mmHg; pH VBG 7.36 (7.36-7.41)
[2019-12-22 22:39] LABS: Partial Thromboplastin Time 27.9 Seconds (21.0-31.0); Prothrombin Time 10.3 Seconds (9.0-12.0)
[2019-12-22] MEDS ORDERED: VANCOMYCIN CONSULT ACTIVE PRN (22:39)
[2019-12-22] MEDS ORDERED: PIPERACILL/TAZOBAC CONSULT ACTIVE PRN (22:39)
[2019-12-22 22:44] LABS: Albumin Level 3.1 gm/dl (3.4-5.0); BUN Creatinine Ratio 17.9 (10-20); Calcium 9.4 mg/dl (8.5-10.1); Creatinine Clr Calc Pharmacy 147.1 ml/min; Est GFR (African American) 135.4; Est GFR (Non-African American) 116.8; Magnesium 1.8 mg/dl (1.8-2.4)
[2019-12-22] MEDS ORDERED: PIPERACILLIN/TAZOBACTAM 3.375 GM in DEXTROSE 5% 100 ML IV SCH (22:45)
[2019-12-22] MEDS ORDERED: VANCOMYCIN HCL 1,000 MG in SODIUM CHLORIDE 0.9% 250 ML IV SCH (22:45)
--- NOTE | 2019-12-22 22:48 | History & Physical Report ---
Date of Service December 22, 2019 Assessment & Plan (1) Pneumonia: Nikia Pickens is a 49 y/o female with past medical hx of pneumonia, MRSA UTI, hypothyroid, general epilepsy, paraplegia wheelchair bound, intellectual disability, tracheostomy, peg tube, who was admitted for LLL Pneumonia and hypoxia. - In ED received treatment for CAP with Azithromycin 500mg x1 and Rocephin 2gm IV x1; but at risk for HAP and also aspiration pneumonia and will change to Zosyn and Vanc. - Hx of MRSA UTI, MRSA swab ordered and if negative may de-escalate to only zosyn and D/C vanc - Blood cultures ordered - Aspiration precautions ordered - New oxygen demand requiring 5L/min FiO2 ratio 30; hypoxic on arrival 87%, currently 96% with supplemental O2 - Trach care PRN - continue with home guaifenesin - pulmonary toilet - Sudaphed okay to continue, hemodynamically stable without tachycardia - No elevated WBC here - Flu swab negative in ED, did get annual influenza vaccination - Currently hemodynamically stable, monitor vitals Code: Full Code FENGI: Regular diet DVT ppx: Lovenox 40mg q24h subq Dipso: Admit PCU, isolation precautions since hx of MRSA until MRSA swab performed/resulted and proceed accordingly. (2) Hypoxia: (3) Hyponatremia: Noted as chronic but review of old EMR shows that level drawn in ED is 125 which is lowest value recorded; also hypochloremic Could benefit from NSS and will order at rate of 100mL x1 bag and reassess in AM Trend with AM labs (4) Hypothyroid: continue with home levothyroxine 88mcg PO qAM (5) Hypothermia: Noted in history Monitor and keep warm PRN (6) UTI (urinary tract infection): Positive nitrates on Urine in ED Coverage provided with Zosyn follow culture (7) Seizure disorder: continue with home meds including Tegretol 200mg qAM PO, Tegretol 400mg PO qPM, Diazepam 5mg PO BID, Divalproex 625mg PO BID, Lamictal 100mg PO BIDM - Noted to need brand names - Seizure precautions ordered (8) Tracheostomy tube present: Tracheostomy care order placed per shift PRN; getting supplemental O2 via trach (9) Chronic indwelling Larson catheter: UTI performed with positive nitrates, culture pending Larson care as needed (10) Paraplegia: Noted from prior seizure causing T2-T3 injury from hematoma. Wheel chair bound (11) DVT prophylaxis: Lovenox 40mg q24h History of Present Illness Chief Complaint: Pneumonia Primary Care Provider: Gómez Murrell DO Nikia Pickens is a 49 y/o female with past medical hx of pneumonia, MRSA UTI, hypothyroid, general epilepsy, paraplegia wheelchair bound, intellectual disability, tracheostomy, peg tube, who presented by parents for CC of hypoxia. Family noted that everyone in household have been dealing with cold like symptoms. They state that about 5 days ago Kelsey developed cold like symptoms of congestion that they have been treating with sudafed OTC. They note that today she had a pulse ox reading at home of 88-90% with her baseline of 94% or greater. They also noted she was not herself today, appeared to have decreased activity. She enjoys playing cards in the morning and mom noted "she seemed to have to think more" when playing. They deny any recent antibiotic use, last hospitalization was in September 2019 for UTI. Mom notes she has a hx of UTI MRSA. She has had the influenza vaccination this year and was flu swab negative here in ED. She does have a PEG tube that is used for free water and otherwise takes food PO. Mom notes that she takes her pills by chewing them, so ER tabs aren't an option. She has not had any diarrhea or increased swelling. She has weekly seizure like activity, but none today. Mom notes she stays with patient while she is hospitalized for patient's safety as she is very familiar with Nikia's care. Patient is non-verbal but follows commands, she was found to have a LLL infiltrate here in the ED and was treated with Azithromycin 500mg x1 dose and Rocephin 2gm IV x1. Dad notes that she is chronically hyponatremic "so don't freak out when you see her sodium level." Allergies Allergy/AdvReac Type Severity Reaction Status Date / Time phenobarbital AdvReac Intermediate depresssed Verified 12/22/19 22:25 Home Medications Home Medications Medication Instructions Recorded Confirmed Type diazepam 5 mg PO BID 11/14/18 12/22/19 History guaifenesin 600 mg PO QAM 11/14/18 12/22/19 History lamotrigine [Lamictal] 100 mg PO BIDM 11/14/18 12/22/19 History magnesium oxide 200 mg PO Q2D 11/14/18 12/22/19 History magnesium oxide 400 mg PO Q2D 11/14/18 12/22/19 History multivitamin 1 tab PO QAM 11/14/18 12/22/19 History pseudoephedrine HCl [Sudafed] 30 mg PO DAILY 11/14/18 12/22/19 History carbamazepine [Tegretol] 400 mg PO QPM 01/15/19 12/22/19 History divalproex 625 mg PO BID 01/15/19 12/22/19 History levothyroxine 88 mcg PO QAM 10/05/19 12/22/19 History carbamazepine [Tegretol] 200 mg PO QAM 12/22/19 12/22/19 History guaifenesin 600 mg PO HS PRN 12/22/19 12/22/19 History Past Med/Surg History Social History Preferred Language: Uzbek Communication Ability: Impaired Earrings Fabricator Required: No Beliefs That Will Affect Care: None Current Living Situation: Parent Other Information That Helps Us Care for You: No Feels Safe at Home: Yes Safety Concerns: Feels Safe At This Time Smoking Status: Never smoker Second Hand Exposure: No ; Hx Alcohol Use: No Hx Substance Use: No Review of Systems Review of Systems: All systems reviewed & are unremarkable except as noted in HPI & below Constitutional: no fever and no chills noted by family hx of hypothermia Eyes: no discharge Ear, Nose, Mouth, Throat: + nasal congestion Respiratory: no change in sputum Cardiovascular: no edema Integumentary: no rash and no lesions Physical Exam Constitutional: + ill appearing, + physical limitations (chronic paraplegic), cooperative and comfortable; no acute distress Eyes: PERRL, conjunctivae normal, anicteric sclerae ENMT: external ear and nose normal, oropharynx normal Neck: + tracheostomy present Respiratory: normal respiratory effort; no respiratory distress Auscultation: + diminished lung sounds Cardiovascular: Rate/Rhythm: regular rate and regular rhythm Extremities: no edema Gastrointestinal (Abdomen): Inspection/Auscultation: normal bowel sounds Percussion/Palpation: abdomen soft; abdomen nontender and abdomen not rigid PEG Tube present L. abdomen without surrounding erythema or signs of infection Musculoskeletal: Head/Neck/Chest: normocephalic and head atraumatic Skin: no rashes, warm and dry Neurologic: awake at neuro baseline per family Psychiatric: Orientation: alert Results & Data Vital Signs (Past 12 Hours) Vital Signs Temp Pulse Pulse Resp BP BP Pulse Ox 12/22/19 22:02 92 12/22/19 21:20 88 18 87 L 12/22/19 21:00 88 L 12/22/19 20:51 90 20 139/68 92 12/22/19 19:24 66 16 94 12/22/19 17:43 36.7 C 72 16 162/91 H 93 Laboratory Results Laboratory Results - last 24 hr 12/22/19 12/22/19 12/22/19 19:08 21:56 22:12 WBC RBC Hgb Hct MCV MCH MCHC RDW Std Deviation RDW Coeff of [place] Plt Count MPV Immature Gran % (Auto) Neut % (Auto) Lymph % (Auto) [place] % (Auto) Eos % (Auto) Baso % (Auto) Immature Gran # (Auto) Neut # (Auto) Lymph # (Auto) [place] # (Auto) Eos # (Auto) Baso # (Auto) PT INR APTT PTT Ratio VBG pH VBG pCO2 VBG pO2 VBG HCO3 VBG O2 Saturation VBG Base Excess Barometric Pressure Sodium Potassium Chloride Carbon Dioxide Anion Gap BUN Creatinine Est Cr Clr Drug Dosing Est GFR ( Amer) Est GFR (Non-Af Amer) BUN/Creatinine Ratio Glucose Lactate Pending Calcium Phosphorus Magnesium Total Bilirubin AST ALT Alkaline Phosphatase NT-Pro-B Natriuret Pep Total Protein Albumin Globulin Albumin/Globulin Ratio Urine Color Yellow Urine Appearance Clear Urine pH 7.5 Ur Specific [place] 1.010 Urine Protein Negative Urine Glucose (UA) Negative Urine Ketones Negative Urine Blood Negative Urine Nitrite Positive A Urine Bilirubin Negative Urine Urobilinogen Negative Ur Leukocyte Esterase Trace H Urine WBC (Auto) 1-5 Urine RBC (Auto) 0-4 U Hyaline Cast (Auto) 1-5 U Epithel Cells (Auto) 5-10 H Urine Bacteria (Auto) 1+ H Influenza Type A (PCR) Neg for Influ A Influenza Type B (PCR) Neg for Influ B 12/22/19 12/22/19 12/22/19 22:12 22:16 22:16 WBC 6.13 RBC 3.41 L Hgb 11.1 L Hct 31.5 L MCV 92.4 MCH 32.6 MCHC 35.2 RDW Std Deviation 50.1 H RDW Coeff of Naz[place] 14.7 H Plt Count 132 MPV 9.9 Immature Gran % (Auto) 0.3 Neut % (Auto) 63.4 Lymph % (Auto) 13.7 [place] % (Auto) 22.0 Eos % (Auto) 0.3 Baso % (Auto) 0.3 Immature Gran # (Auto) 0.02 Neut # (Auto) 3.88 Lymph # (Auto) 0.84 L [place] # (Auto) 1.35 H Eos # (Auto) 0.02 Baso # (Auto) 0.02 PT 10.3 INR 1.0 APTT 27.9 PTT Ratio 1.0 VBG pH 7.36 VBG pCO2 50 VBG pO2 34 VBG HCO3 28 VBG O2 Saturation < 60.0 VBG Base Excess 1.3 Barometric Pressure 727.1 Sodium Potassium Chloride Carbon Dioxide Anion Gap BUN Creatinine Est Cr Clr Drug Dosing Est GFR ( Amer) Est GFR (Non-Af Amer) BUN/Creatinine Ratio Glucose Lactate Calcium Phosphorus Magnesium Total Bilirubin AST ALT Alkaline Phosphatase NT-Pro-B Natriuret Pep Total Protein Albumin Globulin Albumin/Globulin Ratio Urine Color Urine Appearance Urine pH Ur Specific [place] Urine Protein Urine Glucose (UA) Urine Ketones Urine Blood Urine Nitrite Urine Bilirubin Urine Urobilinogen Ur Leukocyte Esterase Urine WBC (Auto) Urine RBC (Auto) U Hyaline Cast (Auto) U Epithel Cells (Auto) Urine Bacteria (Auto) Influenza Type A (PCR) Influenza Type B (PCR) 12/22/19 22:16 WBC RBC Hgb Hct MCV MCH MCHC RDW Std Deviation RDW Coeff of [place] Plt Count MPV Immature Gran % (Auto) Neut % (Auto) Lymph % (Auto) [place] % (Auto) Eos % (Auto) Baso % (Auto) Immature Gran # (Auto) Neut # (Auto) Lymph # (Auto) [place] # (Auto) Eos # (Auto) Baso # (Auto) PT INR APTT PTT Ratio VBG pH VBG pCO2 VBG pO2 VBG HCO3 VBG O2 Saturation VBG Base Excess Barometric Pressure Sodium 125 L Potassium 4.0 Chloride 90 L Carbon Dioxide 26 Anion Gap 9.0 BUN 9 Creatinine 0.48 L Est Cr Clr Drug Dosing 147.1 Est GFR ( Amer) 135.4 Est GFR (Non-Af Amer) 116.8 BUN/Creatinine Ratio 17.9 Glucose 116 H Lactate Calcium 9.4 Phosphorus 3.2 Magnesium 1.8 Total Bilirubin 0.2 AST 12 L ALT 14 Alkaline Phosphatase 87 NT-Pro-B Natriuret Pep 131 Total Protein 7.3 Albumin 3.1 L Globulin 4.2 H Albumin/Globulin Ratio 0.7 L Urine Color Urine Appearance Urine pH Ur Specific [place] Urine Protein Urine Glucose (UA) Urine Ketones Urine Blood Urine Nitrite Urine Bilirubin Urine Urobilinogen Ur Leukocyte Esterase Urine WBC (Auto) Urine RBC (Auto) U Hyaline Cast (Auto) U Epithel Cells (Auto) Urine Bacteria (Auto) Influenza Type A (PCR) Influenza Type B (PCR) Diagnostic Findings CXR 1V LLL infiltrate Medications Administered Albuterol (Duoneb) 12 ml NEB ONE ONE Stop: 12/22/19 19:04 Last Admin: 12/22/19 19:20 Dose: 12 ml Documented by: [id number] Ceftriaxone Sodium (Rocephin) 2,000 mg in 70 mls @ 140 mls/hr IV NOW STA Stop: 12/22/19 21:50 Last Infusion: 12/22/19 22:59 Dose: 0 mls/hr Documented by: [id number] Admin: 12/22/19 22:19 Dose: 140 mls/hr Documented by: [id number] Azithromycin 500 mg/ Dextrose 255 mls @ 125 mls/hr IV ONE ONE Stop: 12/22/19 23:23 Last Admin: 12/22/19 22:52 Dose: 125 mls/hr Documented by: [id number] Code Status & VTE Plan Code Status Full Code VTE Prophylaxis Plan VTE Prophylaxis will be ordered: Yes Supervising Physician Co-Signing Physician Notes Patient was seen and examined by me personally. I reviewed the chart, the orders and discussed the case in detail with Dr. Bob Valiente DO . I read this H&P and agree with its contents to entirety. Resident Activity Tracking Resident Involvement: Resident Care Provided Care Provided: Adult Hospital Medicine (1) UTI (urinary tract infection) Hematuria presence: with hematuria Urinary tract infection type: site unspecified Qualified Code(s): N39.0 - Urinary tract infection, site not specified; R31.9 - Hematuria, unspecified (2) Hypothermia Encounter type: initial encounter Qualified Code(s): T68.XXXA - Hypothermia, initial encounter (3) Pneumonia Laterality: left Lung location: lower lobe of lung Pneumonia type: due to unspecified organism Qualified Code(s): J18.9 - Pneumonia, unspecified organism
[2019-12-22 22:49] LABS: Albumin Globulin Ratio 0.7 (0.9-2); Bilirubin,Total 0.2 mg/dl (0.2-1); Globulin 4.2 gm/dl (2.5-4.0); Phosphorus 3.2 mg/dl (2.5-4.9); Total Protein 7.3 gm/dl (6.4-8.2)
[2019-12-23] MEDS ORDERED: POLYETHYLENE (MIRALAX) 17 GM PACK PO PRN (00:02)
[2019-12-23] MEDS ORDERED: ONDANSETRON INJ 2 MG/ML 2 ML VIAL IV PRN (00:02)
[2019-12-23] MEDS ORDERED: guaiFENesin 600 MG TABCR PO PRN (00:02)
[2019-12-23] MEDS ORDERED: VANCOMYCIN HCL 2,000 MG in SODIUM CHLORIDE 0.9% 500 ML IV SCH (01:00)
[2019-12-23] MEDS ORDERED: SODIUM CHLORIDE 0.9% 1000ML 1,000 ML IV SCH (01:00)
--- NOTE | 2019-12-23 01:14 | Billing Data ---
Date of Service December 22, 2019 Coding Level of Care Code 78741 Initial Inpt Care Lvl 3
--- NOTE | 2019-12-23 01:49 | Emergency Department Note ---
Entered by Alban Leggett acting as a scribe for History of Present Illness General Chief complaint: Congestion Stated complaint: CONGESTION, RESP. CONCERNS Time Seen by Provider: 12/22/19 18:31 Source: family (mom) History of Present Illness Onset (ago): day(s) (five) Location: chest Pain Consistency: + constant Maximum Pain Intensity: 5 Quality: + other (congestion) Associated symptoms: + other (Positive for headache, SOB, and dark urine.) The patient is a 49 year old female who presents to the emergency department with complaints of constant congestion beginning five days ago. Per mom, the patient developed congestion and cold-like symptoms five days ago. She states that the patient has a history of a tracheostomy, and she notes that she has bee n sucking a thick white substance out of the patients tracheostomy. She reports that the patient has also had a headache and SOB. She states that the patients oxygen saturation was 90-91% on room air. She notes that the patient was wheezing today, and she reports that the patient had crackles in all lung rivas. She states that the patient has had dark urine. She notes that the patient has a history of ARDs. Home Medications Home Medications Medication Instructions Recorded Confirmed Type diazepam 5 mg PO BID 11/14/18 12/22/19 History guaifenesin 600 mg PO QAM 11/14/18 12/22/19 History lamotrigine [Lamictal] 100 mg PO BIDM 11/14/18 12/22/19 History magnesium oxide 200 mg PO Q2D 11/14/18 12/22/19 History magnesium oxide 400 mg PO Q2D 11/14/18 12/22/19 History multivitamin 1 tab PO QAM 11/14/18 12/22/19 History pseudoephedrine HCl [Sudafed] 30 mg PO DAILY 11/14/18 12/22/19 History carbamazepine [Tegretol] 400 mg PO QPM 01/15/19 12/22/19 History divalproex 625 mg PO BID 01/15/19 12/22/19 History levothyroxine 88 mcg PO QAM 10/05/19 12/22/19 History carbamazepine [Tegretol] 200 mg PO QAM 12/22/19 12/22/19 History guaifenesin 600 mg PO HS PRN 12/22/19 12/22/19 History Allergies Allergy/AdvReac Type Severity Reaction Status Date / Time phenobarbital AdvReac Intermediate depresssed Verified 12/22/19 22:25 Past Med/Surg History Medical History Chronic constipation Larson catheter in place Gastrointestinal tube present Generalized epilepsy (Chronic 09/22/11) Leeroy filter in place 2015 -Placed after back surgery prophylactically History of ARDS 2008 Hx of deep venous thrombosis left arm d/t central line Hx of dislocation right elbow Hx of fracture ankle d/t seizures Hx of ovarian cancer Hx of recurrent urinary tract infection had 3-4 over past year - Just finished ABX 01/11/2019 Hypothyroid Mental retardation (Chronic) Paraplegia (Chronic) Had seizure and suffered epidural T2 and T3 which caused paraplegia Seizure disorder Tracheostomy dependence 2015 - after back surgery was unable to be weaned from the ventilator. Has had chronic problems being weaned from the ventilator. Surgical History Difficult ventilator weaning 2015 - post op back surgery History of ankle surgery left ankle History of back surgery 2015 History of cardiac cath [place] 2015 Hx of hysterectomy, total 2008 Family History Other No pertinent family history in first degree relatives Social History Preferred Language: Vincentian Communication Ability: Impaired [place] [employer] Required: No Beliefs That Will Affect Care: None Current Living Situation: Parent Other Information That Helps Us Care for You: No Feels Safe at Home: Yes Safety Concerns: Feels Safe At This Time Smoking Status: Never smoker Second Hand Exposure: No ; Hx Alcohol Use: No Hx Substance Use: No Review of Systems See HPI for pertinent positives & negatives. and A total of 10 systems reviewed and were otherwise negative Physical Exam Vital Signs Vital Signs - 24 hr 12/22/19 17:43 12/22/19 19:24 12/22/19 20:51 Temperature 36.7 C Temperature Source Oral Pulse Rate 72 Pulse Rate [Right Finger] 66 90 Respiratory Rate 16 16 20 Respiratory Effort / Characteristics Non-Labored Spontaneous Non-Labored Respiratory Depth Normal Blood Pressure 162/91 H Blood Pressure [Right Arm] 139/68 Blood Pressure Mean 114 Blood Pressure Mean [Right Arm] 91 Blood Pressure Position Sitting Pulse Oximetry 93 94 92 Oxygen Delivery Method Room Air Room Air Room Air Trach Collar Oxygen Flow Rate Fraction of Inspired Oxygen SaO2/FiO2 Ratio Sepsis Recent Fever Within 48 Hours No Sepsis New/Unexplained Change in Mental Status No Sepsis Action Taken by Nursing No Action Required 12/22/19 21:00 12/22/19 21:20 12/22/19 21:44 Temperature Temperature Source Pulse Rate Pulse Rate [Right Finger] 88 Respiratory Rate 18 Respiratory Effort / Characteristics Respiratory Depth Normal Blood Pressure Blood Pressure [Right Arm] Blood Pressure Mean Blood Pressure Mean [Right Arm] Blood Pressure Position Pulse Oximetry 88 L 87 L Oxygen Delivery Method Room Air Room Air Trach Collar Oxygen Flow Rate Fraction of Inspired Oxygen SaO2/FiO2 Ratio Sepsis Recent Fever Within 48 Hours Sepsis New/Unexplained Change in Mental Status Sepsis Action Taken by Nursing 12/22/19 22:02 Temperature Temperature Source Pulse Rate Pulse Rate [Right Finger] Respiratory Rate Respiratory Effort / Characteristics Respiratory Depth Blood Pressure Blood Pressure [Right Arm] Blood Pressure Mean Blood Pressure Mean [Right Arm] Blood Pressure Position Pulse Oximetry 92 Oxygen Delivery Method Trach Collar Oxygen Flow Rate 5 Fraction of Inspired Oxygen 30 SaO2/FiO2 Ratio 306 Sepsis Recent Fever Within 48 Hours Sepsis New/Unexplained Change in Mental Status Sepsis Action Taken by Nursing GENERAL: Awake, alert, fatigued appearing, in no distress HENT: Normocephalic, atraumatic. Oropharynx with dry mucous membranes and otherwise unremarkable. . EYES: Normal conjunctiva. Sclera non-icteric. NECK: Supple. No nuchal rigidity. FROM. No JVD. RESPIRATORY: Intermittent wheeze with bibasilar rhonchi. CARDIAC: Regular rate, normal rhythm. Extremities warm and well perfused. Pulses equal. ABDOMEN: Soft, non-distended. No tenderness to palpation. No rebound or guarding. No masses. G tube site c/d/i. RECTAL: Deferred. MUSCULOSKELETAL: Chest examination reveals no tenderness. The back is symmetrical on inspection without obvious abnormality. There is no CVA tenderness to palpation. No joint edema. LOWER EXTREMITIES: Calves are equal size bilaterally and non-tender. No edema. No discoloration. NEURO: Normal sensorium. No new focal sensory or motor deficits noted. BLE paresis at baseline. SKIN: No rash or jaundice noted. Course Course 1856: The patient was evaluated in room C10. A complete history and physical exam was performed. 2111: Upon reevaluation, the patient is stable. I discussed the findings and the treatment plan with the patient's family. They express agreement and understanding. I spoke with Dr. Cosme of the [facility] Hospitalist [facility]. The patient will be evaluated for further management. Consultations Consultation #1: I reviewed the patient's case with Dr. Cosme - Hospitalist, [facility]. He will evaluate the patient for further management. Time: 21:11 Administered Medications Piperacillin Sod/Tazobactam (Sod 3.375 gm/ Dextrose) 115 mls @ 200 mls/hr IV Q8H RUDDY; Protocol Stop: 12/23/19 01:00 Last Infusion: 12/23/19 01:32 Dose: 0 mls/hr Documented by: [id number] Infusion: 12/23/19 00:50 Dose: 200 mls/hr Documented by: [id number] Admin: 12/23/19 00:35 Dose: 28.8 mls/hr Documented by: [id number] Sodium Chloride (Nss 1000ml) 1,000 mls @ 100 mls/hr IV .Q10H RUDDY Stop: 12/23/19 10:59 Last Admin: 12/23/19 01:00 Dose: 100 mls/hr Documented by: [id number] Vancomycin HCl 2,000 mg/ (Sodium Chloride) 540 mls @ 200 mls/hr IV TODAY@0100 RUDDY Stop: 12/23/19 03:41 Last Infusion: 12/23/19 04:39 Dose: 0 mls/hr Documented by: [id number] Admin: 12/23/19 01:20 Dose: 200 mls/hr Documented by: [id number] Discontinued Medications Albuterol (Duoneb) 12 ml NEB ONE ONE Stop: 12/22/19 19:04 Last Admin: 12/22/19 19:20 Dose: 12 ml Documented by: [id number] Azithromycin (Zithromax) Confirm Administered Dose 500 mg .ROUTE .STK-MED ONE Stop: 12/22/19 22:13 Last Admin: 12/22/19 22:19 Dose: Not Given Documented by: [id number] Ceftriaxone Sodium (Rocephin) 2,000 mg in 70 mls @ 140 mls/hr IV NOW STA Stop: 12/22/19 21:50 Last Infusion: 12/22/19 22:59 Dose: 0 mls/hr Documented by: [id number] Admin: 12/22/19 22:19 Dose: 140 mls/hr Documented by: [id number] Azithromycin 500 mg/ Dextrose 255 mls @ 125 mls/hr IV ONE ONE Stop: 12/22/19 23:23 Last Infusion: 12/23/19 01:32 Dose: 0 mls/hr Documented by: [id number] Admin: 12/22/19 22:52 Dose: 125 mls/hr Documented by: [id number] Vancomycin HCl 1,000 mg/ (Sodium Chloride) 270 mls @ 125 mls/hr IV Q24H [facility]; Protocol Stop: 12/29/19 22:44 Last Admin: 12/23/19 00:30 Dose: Not Given Documented by: [id number] Medical Decision Making Differential Diagnosis Differential diagnosis: Etiologies such as infections, reactive airway disease, COPD, pneumonia, pleural effusion, pulmonary edema, ARDS, pneumothorax, CHF, cardiac ischemia, cardiac tamponade, dysrhythmia, anemia, pulmonary embolism, musculoskeletal, gastrointestinal process, as well as others were entertained. Medical Records Attestation: I reviewed the patient's medical records. Home Medications Current Medication List: was personally reviewed by me Laboratory Data Attestation: I reviewed the patient's lab results. Result diagrams: 12/22/19 22:16 12/22/19 22:16 Lab Results 12/22/19 12/22/19 12/22/19 Range/Units 19:08 21:56 22:12 WBC (4.8-10.8) K/uL RBC (4.2-5.4) M/uL Hgb (12.0-16.0) g/dL Hct (37-47) % MCV (80-100) fL MCH (25-34) pg MCHC (32-36) g/dL RDW Std Deviation (36.4-46.3) fL RDW Coeff of Nazanin (11.5-14.5) % Plt Count (130-400) K/uL MPV (7.4-10.4) fL Immature Gran % (Auto) % Neut % (Auto) % Lymph % (Auto) % Gonzales % (Auto) % Eos % (Auto) % Baso % (Auto) % Immature Gran # (Auto) (0.00-0.02) K/uL Neut # (Auto) (1.4-6.5) K/uL Lymph # (Auto) (1.2-3.4) K/uL Gonzales # (Auto) (0.11-0.59) K/uL Eos # (Auto) (0-0.5) K/uL Baso # (Auto) (0-0.2) K/uL PT (9.0-12.0) Seconds INR (0.9-1.1) APTT (21.0-31.0) Seconds PTT Ratio VBG pH (7.36-7.41) VBG pCO2 (38-50) mmHg VBG pO2 mmHg VBG HCO3 mmol/L VBG O2 Saturation % VBG Base Excess mEq/L Barometric Pressure mm/Hg Sodium (136-145) mmol/L Potassium (3.5-5.1) mmol/L Chloride (98-107) mmol/L Carbon Dioxide (21-32) mmol/L Anion Gap (3-11) BUN (7-18) mg/dl Creatinine (0.6-1.2) mg/dl Est Cr Clr Drug Dosing ml/min Est GFR ( Amer) Est GFR (Non-Af Amer) BUN/Creatinine Ratio (10-20) Glucose (70-99) mg/dl Lactate 1.9 (0.4-2.0) mmol/L Calcium (8.5-10.1) mg/dl Phosphorus (2.5-4.9) mg/dl Magnesium (1.8-2.4) mg/dl Total Bilirubin (0.2-1) mg/dl AST (15-37) U/L ALT (12-78) U/L Alkaline Phosphatase (45-117) U/L NT-Pro-B Natriuret Pep (0-450) pg/ml Total Protein (6.4-8.2) gm/dl Albumin (3.4-5.0) gm/dl Globulin (2.5-4.0) gm/dl Albumin/Globulin Ratio (0.9-2) Urine Color Yellow Urine Appearance Clear (Clear) Urine pH 7.5 (4.5-7.5) Ur Specific [place] 1.010 (1.000-1.030) Urine Protein Negative (Negative) Urine Glucose (UA) Negative (Negative) Urine Ketones Negative (Negative) Urine Blood Negative (Negative) Urine Nitrite Positive A (Negative) Urine Bilirubin Negative (Negative) Urine Urobilinogen Negative (Negative) Ur Leukocyte Esterase Trace H (Negative) Urine WBC (Auto) 1-5 (0-5) /hpf Urine RBC (Auto) 0-4 (0-4) /hpf U Hyaline Cast (Auto) 1-5 (0-5) /lpf U Epithel Cells (Auto) 5-10 H (0-5) /lpf Urine Bacteria (Auto) 1+ H (Negative) Influenza Type A (PCR) Neg for Influ A (Neg) Influenza Type B (PCR) Neg for Influ B (Neg) 12/22/19 12/22/19 12/22/19 Range/Units 22:12 22:16 22:16 WBC 6.13 (4.8-10.8) K/uL RBC 3.41 L (4.2-5.4) M/uL Hgb 11.1 L (12.0-16.0) g/dL Hct 31.5 L (37-47) % MCV 92.4 (80-100) fL MCH 32.6 (25-34) pg MCHC 35.2 (32-36) g/dL RDW Std Deviation 50.1 H (36.4-46.3) fL RDW Coeff of Nazanin 14.7 H (11.5-14.5) % Plt Count 132 (130-400) K/uL MPV 9.9 (7.4-10.4) fL Immature Gran % (Auto) 0.3 % Neut % (Auto) 63.4 % Lymph % (Auto) 13.7 % Gonzales % (Auto) 22.0 % Eos % (Auto) 0.3 % Baso % (Auto) 0.3 % Immature Gran # (Auto) 0.02 (0.00-0.02) K/uL Neut # (Auto) 3.88 (1.4-6.5) K/uL Lymph # (Auto) 0.84 L (1.2-3.4) K/uL [place] # (Auto) 1.35 H (0.11-0.59) K/uL Eos # (Auto) 0.02 (0-0.5) K/uL Baso # (Auto) 0.02 (0-0.2) K/uL PT 10.3 (9.0-12.0) Seconds INR 1.0 (0.9-1.1) APTT 27.9 (21.0-31.0) Seconds PTT Ratio 1.0 VBG pH 7.36 (7.36-7.41) VBG pCO2 50 (38-50) mmHg VBG pO2 34 mmHg VBG HCO3 28 mmol/L VBG O2 Saturation < 60.0 % VBG Base Excess 1.3 mEq/L Barometric Pressure 727.1 mm/Hg Sodium (136-145) mmol/L Potassium (3.5-5.1) mmol/L Chloride (98-107) mmol/L Carbon Dioxide (21-32) mmol/L Anion Gap (3-11) BUN (7-18) mg/dl Creatinine (0.6-1.2) mg/dl Est Cr Clr Drug Dosing ml/min Est GFR ( Amer) Est GFR (Non-Af Amer) BUN/Creatinine Ratio (10-20) Glucose (70-99) mg/dl Lactate (0.4-2.0) mmol/L Calcium (8.5-10.1) mg/dl Phosphorus (2.5-4.9) mg/dl Magnesium (1.8-2.4) mg/dl Total Bilirubin (0.2-1) mg/dl AST (15-37) U/L ALT (12-78) U/L Alkaline Phosphatase (45-117) U/L NT-Pro-B Natriuret Pep (0-450) pg/ml Total Protein (6.4-8.2) gm/dl Albumin (3.4-5.0) gm/dl Globulin (2.5-4.0) gm/dl Albumin/Globulin Ratio (0.9-2) Urine Color Urine Appearance (Clear) Urine pH (4.5-7.5) Ur Specific [place] (1.000-1.030) Urine Protein (Negative) Urine Glucose (UA) (Negative) Urine Ketones (Negative) Urine Blood (Negative) Urine Nitrite (Negative) Urine Bilirubin (Negative) Urine Urobilinogen (Negative) Ur Leukocyte Esterase (Negative) Urine WBC (Auto) (0-5) /hpf Urine RBC (Auto) (0-4) /hpf U Hyaline Cast (Auto) (0-5) /lpf U Epithel Cells (Auto) (0-5) /lpf Urine Bacteria (Auto) (Negative) Influenza Type A (PCR) (Neg) Influenza Type B (PCR) (Neg) 12/22/19 Range/Units 22:16 WBC (4.8-10.8) K/uL RBC (4.2-5.4) M/uL Hgb (12.0-16.0) g/dL Hct (37-47) % MCV (80-100) fL MCH (25-34) pg MCHC (32-36) g/dL RDW Std Deviation (36.4-46.3) fL RDW Coeff of Nazanin (11.5-14.5) % Plt Count (130-400) K/uL MPV (7.4-10.4) fL Immature Gran % (Auto) % Neut % (Auto) % Lymph % (Auto) % [place] % (Auto) % Eos % (Auto) % Baso % (Auto) % Immature Gran # (Auto) (0.00-0.02) K/uL Neut # (Auto) (1.4-6.5) K/uL Lymph # (Auto) (1.2-3.4) K/uL [place] # (Auto) (0.11-0.59) K/uL Eos # (Auto) (0-0.5) K/uL Baso # (Auto) (0-0.2) K/uL PT (9.0-12.0) Seconds INR (0.9-1.1) APTT (21.0-31.0) Seconds PTT Ratio VBG pH (7.36-7.41) VBG pCO2 (38-50) mmHg VBG pO2 mmHg VBG HCO3 mmol/L VBG O2 Saturation % VBG Base Excess mEq/L Barometric Pressure mm/Hg Sodium 125 L (136-145) mmol/L Potassium 4.0 (3.5-5.1) mmol/L Chloride 90 L (98-107) mmol/L Carbon Dioxide 26 (21-32) mmol/L Anion Gap 9.0 (3-11) BUN 9 (7-18) mg/dl Creatinine 0.48 L (0.6-1.2) mg/dl Est Cr Clr Drug Dosing 147.1 ml/min Est GFR ( Amer) 135.4 Est GFR (Non-Af Amer) 116.8 BUN/Creatinine Ratio 17.9 (10-20) Glucose 116 H (70-99) mg/dl Lactate (0.4-2.0) mmol/L Calcium 9.4 (8.5-10.1) mg/dl Phosphorus 3.2 (2.5-4.9) mg/dl Magnesium 1.8 (1.8-2.4) mg/dl Total Bilirubin 0.2 (0.2-1) mg/dl AST 12 L (15-37) U/L ALT 14 (12-78) U/L Alkaline Phosphatase 87 (45-117) U/L NT-Pro-B Natriuret Pep 131 (0-450) pg/ml Total Protein 7.3 (6.4-8.2) gm/dl Albumin 3.1 L (3.4-5.0) gm/dl Globulin 4.2 H (2.5-4.0) gm/dl Albumin/Globulin Ratio 0.7 L (0.9-2) Urine Color Urine Appearance (Clear) Urine pH (4.5-7.5) Ur Specific [place] (1.000-1.030) Urine Protein (Negative) Urine Glucose (UA) (Negative) Urine Ketones (Negative) Urine Blood (Negative) Urine Nitrite (Negative) Urine Bilirubin (Negative) Urine Urobilinogen (Negative) Ur Leukocyte Esterase (Negative) Urine WBC (Auto) (0-5) /hpf Urine RBC (Auto) (0-4) /hpf U Hyaline Cast (Auto) (0-5) /lpf U Epithel Cells (Auto) (0-5) /lpf Urine Bacteria (Auto) (Negative) Influenza Type A (PCR) (Neg) Influenza Type B (PCR) (Neg) Imaging Data Radiologist's Impression: Radiology results as stated below per my review and the radiologist's interpretation: XR chest 1V portable FINDINGS: Moderate cardiomegaly. Chronic elevation right hemidiaphragm. Poorly defined infiltrate left base. Pulmonary apices are clear. IMPRESSION: Poorly defined parenchymal infiltrate left base. ACT 112: Negative or not required by law. The above report was generated using voice recognition software. It may contain grammatical, syntax or spelling errors. Electronically signed by: Jae Villeda M.D. 12/22/2019 7:43 PM ECG Data Attestation: I personally reviewed and interpreted this ECG as follows: Indication: + SOB/dyspnea Rate (beats per minute): 89 Rhythm: + sinus rhythm ECG Ebony: + Normal ECG ST segments: no ST depression and no ST elevation Additional Comments: ST and T wave abnormalities. QTC 399. Blood Pressure Blood Pressure Findings: Elevated blood pressure Blood Pressure Disposition: further management by hospitalist BRANDT Narrative The patient is a pleasant 49-year-old woman with a past medical history of developmental delay, seizure disorder with a history of respiratory failure with intubation and subsequent tracheostomy, paraplegia who presents emergency department accompanied by her parents concern for worsening congestion and low oxygen saturation at home per HPI. On arrival the patient is in no acute distress, afebrile stable vital signs. On exam the patient has a scant intermittent wheeze with bibasilar rhonchi. Flu was negative. Chest x-ray with question of left basilar infiltrate. Patient was with a continuous DuoNeb and did develop mild hypoxia with oxygen saturation around 88% on room air. This persisted even 1 hour after completion of your nebulizer. Therefore we agreed to proceed with blood work and given the persistence of her hypoxia with admission as well. Blood work was drawn and pending. She was ordered for ceftriaxone and a azithromycin. Case was discussed with Dr. Cosme, [facility] hospitalist, who evaluate the patient for admission. Lab work subsequent demonstrates WBC within normal limits. H/H 11.1/31.5 approximate 2 prior range of values. Platelets within normal limits. VBG unremarkable. Chemistry demonstrates hyponatremia with sodium of 125. Lactate 1.9. Electrolytes and LFTs unremarkable. UA with possibility of infection with positive nitrites trace leuk esterase and 1+ bacteria albeit with 5-10 epithelial cells. Impression & Plan Pneumonia, Hypoxia, Tracheostomy tube present, Hyponatremia Discharge Plan Visit Data *Final* Discharge Date/Time: 12/22/19 23:13 Chief Complaint: Congestion Stated Complaint: CONGESTION, RESP. CONCERNS ED Provider: Terrence Lozano Discharge Problem: Pneumonia, Hypoxia, Tracheostomy tube present, Hyponatremia Patient Disposition: Admitted As Inpatient Discharge Instructions Interventions: ED Discharge Assessment Last Done: 12/22/19 23:13 Discharge Problem: Pneumonia Qualifiers: Pneumonia type: due to unspecified organism Laterality: left Lung location: lower lobe of lung Qualified Code(s): J18.9 - Pneumonia, unspecified organism The scribe's documentation has been prepared under my direction and personally reviewed by me in its entirety. I confirm that the note above accurately reflects all work, treatment, procedures, and medical decision making performed by me.
[2019-12-23] MEDS ORDERED: Nursing to Pharmacy Communication ONE ×2 (03:26→17:18)
[2019-12-23] MEDS ORDERED: LEVOTHYROXINE SODIUM 88 MCG TABLET PO SCH (06:30)
[2019-12-23] MEDS: PIPERACILLIN/TAZOBACTAM 4.5 GM in DEXTROSE 5% 100 ML IV SCH ×3 (07:27→22:31)
[2019-12-23] MEDS: MULTIVITAMIN TAB PO SCH (07:28)
[2019-12-23] MEDS: DOCUSATE SODIUM 100 MG CAP PO SCH (07:29)
[2019-12-23] MEDS: lamoTRIgine 100 MG TAB PO SCH ×2 (07:29→17:50)
[2019-12-23] MEDS: guaiFENesin 600 MG TABCR PO SCH (07:29)
[2019-12-23] MEDS: carBAMazepine 200 MG TABLET PO SCH ×2 (07:30→18:03)
[2019-12-23] MEDS: MAGNESIUM OXIDE 400 MG TAB PO SCH (07:31)
[2019-12-23 07:40] LABS: Basophils # (auto) 0.01 K/uL (0-0.2); Basophils % (auto) 0.3 %; Eosinophils # (auto) 0.02 K/uL (0-0.5); Eosinophils % (auto) 0.5 %; Hematocrit (blood only) 32.8 % (37-47); Hemoglobin 11.4 g/dL (12.0-16.0); Immature Granulocytes # (auto) 0.02 K/uL (0.00-0.02); Immature Granulocytes % (auto) 0.5 %; Lymphocytes # (auto) 1.07 K/uL (1.2-3.4); Lymphocytes % (auto) 27.7 %; Mean Corpuscular Hemoglobin 32.2 pg (25-34); Mean Corpuscular Hgb Conc 34.8 g/dL (32-36); Mean Corpuscular Volume 92.7 fL (80-100); Monocytes # (auto) 0.81 K/uL (0.11-0.59); Neutrophils # (auto) 1.93 K/uL (1.4-6.5); Platelet Count 120 K/uL (130-400); RDW Coefficient of Variation 14.7 % (11.5-14.5); RDW Standard Deviation 50.3 fL (36.4-46.3); Red Blood Count 3.54 M/uL (4.2-5.4); White Blood Count 3.86 K/uL (4.8-10.8)
[2019-12-23 08:07] LABS: Albumin Level 2.7 gm/dl (3.4-5.0); BUN Creatinine Ratio 19.9 (10-20); Creatinine Clr Calc Pharmacy 194.9 ml/min; Est GFR (African American) 148.8; Est GFR (Non-African American) 128.4; Magnesium 1.8 mg/dl (1.8-2.4); Potassium 4.4 mmol/L (3.5-5.1)
[2019-12-23 08:10] LABS: Albumin Globulin Ratio 0.7 (0.9-2); Bilirubin,Total 0.1 mg/dl (0.2-1); Globulin 4.1 gm/dl (2.5-4.0); Phosphorus 3.6 mg/dl (2.5-4.9); Total Protein 6.8 gm/dl (6.4-8.2)
[2019-12-23] MEDS: ENOXAPARIN INJ 40 MG/0.4 ML SYR SQ SCH (08:38)
[2019-12-23] MEDS ORDERED: diazePAM 5 MG TABLET PO SCH (09:00)
[2019-12-23] MEDS ORDERED: PSEUDOEPHEDRINE HCL 30 MG TAB PO SCH (09:00)
[2019-12-23] MEDS ORDERED: DIVALPROEX SODIUM SPRINKLE 125 MG CAP PO SCH (09:00)
--- NOTE | 2019-12-23 10:38 | Pharmacy Report ---
Pharmacy Abx Dose Short Note - Date of Service December 23, 2019 - Assessment & Plan Assessment 49 year old F receiving vancomycin/zosyn for treatment of pneumonia. Patient with MRSA history and MRSA swab positive. Given paraplegia, current CrCl likely overestimating true function. Used LBW and a rounded scr (recommended as an option to use in paraplegic patients) to estimate a CrCl ~47-65 ml/min. Day # 1 of antimicrobial therapy. Plan Vancomycin * Loading dose 2000mg X1 @~0120 this morning * Begin maintenance dose of 1250 mg IV every 12 hours @1200 * Goal trough level : 15 to 20 mcg/mL * Trough or random level ordered for (before the 5th total dose): 12/24/18 @2330 Pharmacy will continue to follow and will adjust dose/frequency as necessary. Thank you.
[2019-12-23] MEDS: LEVOTHYROXINE SODIUM 88 MCG TABLET PO SCH (11:36)
[2019-12-23] MEDS: VANCOMYCIN HCL 1,250 MG in SODIUM CHLORIDE 0.9% 250 ML IV SCH (11:45)
--- NOTE | 2019-12-23 12:45 | Pulmonary Consultation ---
Date of Consultation December 23, 2019 Assessment & Plan (1) Pneumonia: Patient presents with upper respiratory symptoms and some lethargy. History of ARDs with ventilator and tracheostomy replacement in 2008. Chest x-ray with left lower lobe parenchymal changes which may be infiltrate versus scarring from previous pneumonia Patient takes everything orally and only uses the gastric tube for medications and free water flush Mother states that very seldom does the patient aspirate and due to full supervision they are able to suction from the tracheostomy tube before aspiration. MRSA nasal screen is positive by swab Negative for influenza A or B Continue supportive care. Repeat chest x-ray tomorrow Currently oxygenating well with trach collar Day 2 of antibiotics with Zosyn and vancomycin * Received ceftriaxone and azithromycin in the emergency department Laterality: left Lung location: lower lobe of lung Pneumonia type: due to unspecified organism Qualified Code(s): J18.9 - Pneumonia, unspecified organism (2) Hypoxia: No use of home supplemental O2 Protective tracheostomy tube; Shiley #4 * Tube was placed secondary to difficult extubation in September 2009 * Tube is changed regularly No tobacco abuse history or other pulmonary disease other than ARDs (3) Hyponatremia: This is chronic and according to mother this is a baseline Follows with Dr. Torres with nephrology Free water flushes of the gastric tube include only 240 mL of normal saline to wash down meds in the morning Follow serial labs (4) Hypothermia: Follow-up outpatient with Dr. Zabala Encounter type: initial encounter Qualified Code(s): T68.XXXA - Hypothermia, initial encounter (5) Tracheostomy tube present: Placed in 2008 secondary to difficult extubation Currently Shiley cuffless #4 Mother NOE Cesar RN, changes, cleans, manages the tracheostomy tube at home Patient follows in [place] for regular maintenance by ENT (6) DVT prophylaxis: Lovenox 40 mg subcu daily History of left upper extremity DVT secondary to subclavian catheter placement Mother also reports that patient had a clot at the left arterial insertion site Patient does have an IVC filter which was placed for spine surgery Due to her chronic paraplegia, minimal risk of lower extremity DVT Thank you for including us in the care of this patient. We will continue to follow Please refer to Dr. Gtz's addendum and corrections for further recommendations Supervising Physician Co-Signing Physician Notes I saw and evaluated the patient with Britton fernandes, and agree with findings and plan as documented in the note. Patient seen and examined at bedside. Patient's father was present during the time of examination who help with the history. Patient is paraplegic status post fall has been following up at [place] for her trach which is size 4. As per the father patient is already almost back to her baseline. No change in the secretions from the trach. No fever or chills. Patient does have history of UTIs in the past from her suprapubic catheter. UA is not that dirty. follow-up urine culture. Chest x-ray portable does show retrocardiac opacity in the left lower lobe which could be pneumonia. For the time being we will continue with antibiotics vancomycin and Zosyn. Patient's procalcitonin was negative at 0.05, CRP 8.97, ESR 40. Influenza negative Continue with trach care and suctioning. Follow-up sputum culture. History of Present Illness Attending Physician: Augusta Fuchs MD History of Present Illness Attending: Dr. Gtz This is a 49-year-old female that has a past medical history of mental retardation and epilepsy since childhood. Her mother, Tali Pickens was an ER nurse at [employer] and is at her bedside to provide history and review of systems. The patient has a history of ARDs in 2008 requiring mechanical ventilation and eventual placement of tracheostomy tube on 10/06/2009. She previously followed with Dr. Mathew of the [facility] pulmonary group and currently has a Shiley #4 which is cuffless and changed regularly by ENT in [place]. Patient also has placement of a G-tube which is managed by general surgery. She also does have suprapubic catheter which is changed by the parents on the first of each month. Patient has a history of hypothyroidism and was started on levothyroxine 88 mcg daily which is administered through the gastric tube. Patient also has chronic hyponatremia for over the last year and follows with Dr. Torres from [facility] nephrology. Patient received free flushes of the gastric tube of about 240 mL daily. Patient has a history of left upper extremity DVT at previous site of a subclavian catheter and also has an IVC filter was placed in 2009. Patient is paraplegic secondary to a fall with secondary hematoma at the spinal canal. History of ovarian cancer with hysterectomy and bilateral salpingo-oophorectomy in 2005. Patient is not on a ventilator at home and requires no supplemental o xygen at home. There are no plans to remove the tracheostomy tube. Of note the patient typically is hypothermic. She is scheduled to see Dr. Vergara for endocrinology work-up. When temperature reached 99 F yesterday and patient was less responsive, family brought the patient to the emergency room for evaluation. Patient is nonverbal but can answer questions with nod and shake of head. She denies any pain. She states that she is breathing okay and is not short of breath. She is able to move her upper extremities and wiggle her fingers as well as give a thumbs up on bilateral hands. She has limited mobility of her left leg and foot and no mobility of her right leg and foot. She has been complaining of a headache in the forehead region. Mother typically treats this with Motrin 600 mg twice a day as needed. Patient has no history of gastric ulcer or bleed. She does have approximately a 20 to 25 pound weight gain over the last year which is unexplained. Over the past week, the mother Tali has had increased upper respiratory symptoms with cough and sputum production. She states that 2 or 3 days ago Mabel began to have cough and increased sputum production through the trachea. They have had a have increased deep suction and they have had to remove the trachea to clean it. There is no report of hemoptysis. As mentioned above T- max was 99 F. No sweats or rigors. Epilepsy has been well controlled. Patient has had no rashes or lesions. No other acute complaints. Allergies Allergy/AdvReac Type Severity Reaction Status Date / Time phenobarbital AdvReac Intermediate depresssed Verified 12/22/19 22:25 Home Medications Home Medications Medication Instructions Recorded Confirmed Type diazepam 5 mg PO BID 11/14/18 12/22/19 History guaifenesin 600 mg PO QAM 11/14/18 12/22/19 History lamotrigine [Lamictal] 100 mg PO BIDM 11/14/18 12/22/19 History magnesium oxide 200 mg PO Q2D 11/14/18 12/22/19 History magnesium oxide 400 mg PO Q2D 11/14/18 12/22/19 History multivitamin 1 tab PO QAM 11/14/18 12/22/19 History pseudoephedrine HCl [Sudafed] 30 mg PO DAILY 11/14/18 12/22/19 History carbamazepine [Tegretol] 400 mg PO QPM 01/15/19 12/22/19 History divalproex 625 mg PO BID 01/15/19 12/22/19 History levothyroxine 88 mcg PO QAM 10/05/19 12/22/19 History carbamazepine [Tegretol] 200 mg PO QAM 12/22/19 12/22/19 History guaifenesin 600 mg PO HS PRN 12/22/19 12/22/19 History Patient History Medical History Chronic constipation Lasron catheter in place Gastrointestinal tube present Generalized epilepsy (Chronic 09/22/11) [place] filter in place 2015 -Placed after back surgery prophylactically History of ARDS 2008 Hx of deep venous thrombosis left arm d/t central line Hx of dislocation right elbow Hx of fracture ankle d/t seizures Hx of ovarian cancer Hx of recurrent urinary tract infection had 3-4 over past year - Just finished ABX 01/11/2019 Hypothyroid Mental retardation (Chronic) Paraplegia (Chronic) Had seizure and suffered epidural T2 and T3 which caused paraplegia Seizure disorder Tracheostomy dependence 2015 - after back surgery was unable to be weaned from the ventilator. Has had chronic problems being weaned from the ventilator. Surgical History Difficult ventilator weaning 2015 - post op back surgery History of ankle surgery left ankle History of back surgery 2015 History of cardiac cath [place] 2015 Hx of hysterectomy, total 2008 Family History Other No pertinent family history in first degree relatives Social History Preferred Language: Central [place] Communication Ability: Unable Morale Officer Required: No Beliefs That Will Affect Care: None Current Living Situation: Parent Other Information That Helps Us Care for You: No Feels Safe at Home: Yes Safety Concerns: Feels Safe At This Time Smoking Status: Never smoker Second Hand Exposure: No ; Hx Alcohol Use: No Hx Substance Use: No Review of Systems Review of Systems: Unobtainable due to cognitive status Physical Exam Physical Exam: GENERAL : No acute distress. Nonverbal EYES: No icterus, gaze conjugate. Pupils equal round and reactive to light NOSE: No evidence of epistaxis MOUTH: No lesions or candidiasis NECK: Supple. Shiley #[address] blow-by humidified oxygen LUNGS: Crackles at the bilateral bases. No bronchospasm. No rhonchi. HEART: Distant heart sounds. Regular, rate controlled ABDOMEN: Soft, NT, ND, BS Present. No rebound tenderness. Gastric tube is in place and secure with no erythema, drainage, bleeding at the os. Suprapubic catheter is in place and secure with no erythema, drainage, bleeding. EXTREMITIES: Bilateral upper and lower extremity edema. Pedal pulses intact and equal bilaterally. NEURO: Awake and responsive simple commands. Able to move both upper extremities, wiggle fingers, give thumbs up. Unable to move either lower extremity or wiggle toes. Results & Data Vital Signs (Past 12 Hours) Vital Signs Temp Pulse Pulse Pulse Resp BP BP 12/23/19 11:40 36.2 C L 64 20 116/75 12/23/19 08:00 62 12/23/19 07:52 36.5 C 75 20 138/82 12/23/19 03:52 36.7 C 68 20 129/83 Pulse Ox 12/23/19 11:40 94 12/23/19 08:00 12/23/19 07:52 97 12/23/19 03:52 94 Laboratory Results 12/23/19 07:19 12/23/19 07:19 Diagnostic Findings XR chest 1V portable CLINICAL HISTORY: sob dyspnea COMPARISON STUDY: 10/05/2019 FINDINGS: Moderate cardiomegaly. Chronic elevation right hemidiaphragm. Poorly defined infiltrate left base. Pulmonary apices are clear. IMPRESSION: Poorly defined parenchymal infiltrate left base. ACT 112: Negative or not required by law. The above report was generated using voice recognition software. It may contain grammatical, syntax or spelling errors. Electronically signed by: Jae Villeda M.D. 12/22/2019 7:43 PM PG Care Time/CCT Total # of Minutes Spent Total Time Spent with Patient: Total time spent is greater than 50% in coordination of care (as documented) at patient's floor/unit and/or counseling patient: 50 minutes Coding Level of Care Code 32179 Inpt Consult Level 5 Diagnoses Pneumonia J18.9 Laterality: left Lung location: lower lobe of lung Pneumonia type: due to unspecified organism Hypoxia R09.02 Hyponatremia E87.1 Hypothermia T68.XXXA Encounter type: initial encounter Tracheostomy tube present Z93.0 DVT prophylaxis Z29.9
[2019-12-23] MEDS: diazePAM 5 MG TABLET PO SCH (17:49)
[2019-12-23] MEDS: DIVALPROEX SODIUM SPRINKLE 125 MG CAP PO SCH (17:50)
--- NOTE | 2019-12-23 19:30 | Hospitalist Progress Note ---
Date of Service December 23, 2019 Assessment & Plan (1) Pneumonia: Nikia Pickens is a 49 y/o female with past medical hx of pneumonia, MRSA UTI, hypothyroid, general epilepsy, paraplegia wheelchair bound, intellectual disability, tracheostomy, peg tube, who was admitted for LLL Pneumonia and hypoxia. - In ED received treatment for CAP with Azithromycin 500mg x1 and Rocephin 2gm IV x1; but at risk for HAP and also aspiration pneumonia and was since changed to Zosyn and Vanc. - Hx of MRSA UTI, MRSA swab is POSITIVE -PCT negative - Blood cultures ordered-NGTD - Aspiration precautions ordered - New oxygen demand requiring 5L/min FiO2 ratio 30; hypoxic on arrival 87%- weaning down off O2 as able to -mom requests continuous POx-ordered -Pulm consult appreciated - Trach care - continue with home guaifenesin - pulmonary toilet - continue prn Sudafed - No elevated WBC here - Flu swab negative in ED, did get annual influenza vaccination - Currently hemodynamically stable, monitor vitals (2) Hypoxia: Acute respiratory failure with hypoxia -secondary to PNA -treating PNA -wean O2 as able to (3) Hyponatremia: Noted as chronic for the last 2 years Na+ 125 on admission, now improved to 127 with 1L NS IVFs -has been diagnosed since then with hypothyroidism-TSH elevated slightly at 5.7 in 09/2019--> check TSH in AM -check Urine osmol and Urine Na+ Has worsened in the last year or so along with a 20 lb weight gain With peripheral edema, chronic lung issues, trach, could have right sided heart failure -check ECHO in AM -follow BMP, daily weights (4) Hypothyroid: continue with home levothyroxine 88mcg PO qAM -check TSH-was elevated at 5.7 in (5) Hypothermia: Noted in history, not here Monitor and keep warm PRN Seeing Endocrine for this in a few weeks (6) UTI (urinary tract infection): Positive nitrates on Urine in ED Coverage provided with Zosyn follow culture-pinpoint growth so far -has suprapubic cath in place (7) Seizure disorder: continue with home meds including Tegretol 200mg qAM PO, Tegretol 400mg PO qPM, Diazepam 5mg PO BID, Divalproex 625mg PO BID, Lamictal 100mg PO BIDM - Noted to need brand names - Seizure precautions ordered (8) Tracheostomy tube present: Tracheostomy care order placed per shift PRN; getting supplemental O2 via trach (9) Chronic indwelling Larson catheter: UTI performed with positive nitrates, culture pending Larson care as needed (10) Paraplegia: Noted from prior seizure causing T2-T3 injury from hematoma. Wheel chair bound -supportive care, frequent repositioning, bowel regimen (11) DVT prophylaxis: Lovenox 40mg q24h Code: Full Code FENGI: Regular diet by mouth, G-tube for meds, flushes Dipso: continued stay on PCU, isolation precautions since hx of MRSA Discussed case with her PCP, Dr. Murrell, who will take over her care tomorrow as he is in house this week Subjective Pt nonverbal but can answer some questions with nodding of head yes and shaking head no. Mom reports pt is much improved, less lethargic, but not quite back to her baseline. Still with runny nose, cough. She is suctioning sputum out of trach but seems to be thinner now and not as yellow. Afebrile here. Pt having some mild headache. She had a short seizure this AM for a few seconds. Mom reports pt has seizures almost every day. No BM in 2 days Tele with NSR, rates 60-80s Review of Systems Review of Systems: All systems reviewed & are unremarkable except as noted in HPI & below Mom reports a 20 lbs weight gain in the last year, also with increased edema of legs and arms Physical Exam Constitutional: average body habitus; no acute distress Eyes: + anicteric sclerae ENMT: external ear and nose normal, oropharynx normal Neck: trachea midline, no thyromegaly (trach tube in place with trach collar) Respiratory: normal respiratory effort Auscultation: + rhonchi (at bases) and + wheezes (bilat exp); no crackles Cardiovascular: Rate/Rhythm: regular rate and regular rhythm Heart Sounds: no murmur Extremities: + edema (legs R>L and Arms R>L with 1+ nonpitting edema bilat) Chest (Breasts): Chest: normal inspection of chest Gastrointestinal (Abdomen): normal bowel sounds, soft, nontender, no hepatosplenomegaly (with PEG tube in place) Musculoskeletal: Extremities: extremities normal to inspection; no cyanosis and no clubbing Skin: no rashes, warm and dry Neurologic: moves all extremities and awake Speech / Cognition: + abnormal speech (mute) Genitourinary: + abnormal external appearance (suprapubic catheter in place) Lymphatic: no lymphedema Results & Data Vital Signs (Past 12 Hours) Vital Signs Temp Pulse Pulse Resp BP Pulse Ox 12/23/19 15:17 36.4 C L 71 18 107/72 98 12/23/19 15:00 69 12/23/19 11:40 36.2 C L 64 20 116/75 94 12/23/19 08:00 62 12/23/19 07:52 36.5 C 75 20 138/82 97 Laboratory Results 12/23/19 12/23/19 12/23/19 Range/Units 11:26 11:26 11:26 WBC (4.8-10.8) K/uL RBC (4.2-5.4) M/uL Hgb (12.0-16.0) g/dL Hct (37-47) % MCV (80-100) fL MCH (25-34) pg MCHC (32-36) g/dL RDW Std Deviation (36.4-46.3) fL RDW Coeff of Nazanin (11.5-14.5) % Plt Count (130-400) K/uL MPV (7.4-10.4) fL Immature Gran % (Auto) % Neut % (Auto) % Lymph % (Auto) % [place] % (Auto) % Eos % (Auto) % Baso % (Auto) % Immature Gran # (Auto) (0.00-0.02) K/uL Neut # (Auto) (1.4-6.5) K/uL Lymph # (Auto) (1.2-3.4) K/uL King[place] # (Auto) (0.11-0.59) K/uL Eos # (Auto) (0-0.5) K/uL Baso # (Auto) (0-0.2) K/uL ESR 40 H (0-21) mm/hr Sodium (136-145) mmol/L Potassium (3.5-5.1) mmol/L Chloride (98-107) mmol/L Carbon Dioxide (21-32) mmol/L Anion Gap (3-11) BUN (7-18) mg/dl Creatinine (0.6-1.2) mg/dl Est Cr Clr Drug Dosing ml/min Est GFR ( Amer) Est GFR (Non-Af Amer) BUN/Creatinine Ratio (10-20) Glucose (70-99) mg/dl Calcium (8.5-10.1) mg/dl Phosphorus (2.5-4.9) mg/dl Magnesium (1.8-2.4) mg/dl Total Bilirubin (0.2-1) mg/dl AST (15-37) U/L ALT (12-78) U/L Alkaline Phosphatase (45-117) U/L C-Reactive Protein 8.97 H (0-0.29) mg/dl Total Protein (6.4-8.2) gm/dl Albumin (3.4-5.0) gm/dl Globulin (2.5-4.0) gm/dl Albumin/Globulin Ratio (0.9-2) Procalcitonin < 0.05 (0-0.5) ng/ml Nasal Screen MRSA (PCR) (Negative) 12/23/19 12/23/19 12/23/19 Range/Units 07:19 07:19 00:40 WBC 3.86 L (4.8-10.8) K/uL RBC 3.54 L (4.2-5.4) M/uL Hgb 11.4 L (12.0-16.0) g/dL Hct 32.8 L (37-47) % MCV 92.7 (80-100) fL MCH 32.2 (25-34) pg MCHC 34.8 (32-36) g/dL RDW Std Deviation 50.3 H (36.4-46.3) fL RDW Coeff of Nazanin 14.7 H (11.5-14.5) % Plt Count 120 L (130-400) K/uL MPV 10.0 (7.4-10.4) fL Immature Gran % (Auto) 0.5 % Neut % (Auto) 50.0 % Lymph % (Auto) 27.7 % [place] % (Auto) 21.0 % Eos % (Auto) 0.5 % Baso % (Auto) 0.3 % Immature Gran # (Auto) 0.02 (0.00-0.02) K/uL Neut # (Auto) 1.93 (1.4-6.5) K/uL Lymph # (Auto) 1.07 L (1.2-3.4) K/uL [place] # (Auto) 0.81 H (0.11-0.59) K/uL Eos # (Auto) 0.02 (0-0.5) K/uL Baso # (Auto) 0.01 (0-0.2) K/uL ESR (0-21) mm/hr Sodium 127 L (136-145) mmol/L Potassium 4.4 (3.5-5.1) mmol/L Chloride 92 L (98-107) mmol/L Carbon Dioxide 28 (21-32) mmol/L Anion Gap 7.0 (3-11) BUN 7 (7-18) mg/dl Creatinine 0.36 L (0.6-1.2) mg/dl Est Cr Clr Drug Dosing 194.9 ml/min Est GFR ( Amer) 148.8 Est GFR (Non-Af Amer) 128.4 BUN/Creatinine Ratio 19.9 (10-20) Glucose 85 (70-99) mg/dl Calcium 9.0 (8.5-10.1) mg/dl Phosphorus 3.6 (2.5-4.9) mg/dl Magnesium 1.8 (1.8-2.4) mg/dl Total Bilirubin 0.1 L (0.2-1) mg/dl AST 10 L (15-37) U/L ALT 13 (12-78) U/L Alkaline Phosphatase 78 (45-117) U/L C-Reactive Protein (0-0.29) mg/dl Total Protein 6.8 (6.4-8.2) gm/dl Albumin 2.7 L (3.4-5.0) gm/dl Globulin 4.1 H (2.5-4.0) gm/dl Albumin/Globulin Ratio 0.7 L (0.9-2) Procalcitonin (0-0.5) ng/ml Nasal Screen MRSA (PCR) Positive A (Negative) PG Care Time/CCT Total # of Minutes Spent Total Time Spent with Patient: Total time spent is greater than 50% in coordination of care (as documented) at patient's floor/unit and/or counseling patient: Coding Level of Care Code 53422 Subseq Hosp Care Lvl 3 Diagnoses Pneumonia J18.9 Laterality: left Lung location: lower lobe of lung Pneumonia type: due to unspecified organism Hypoxia R09.02 Hyponatremia E87.1 Hypothyroid E03.9 Hypothermia T68.XXXA Encounter type: initial encounter UTI (urinary tract infection) N39.0; R31.9 Hematuria presence: with hematuria Urinary tract infection type: site unspecified Seizure disorder G40.909 Tracheostomy tube present Z93.0 Chronic indwelling Larson catheter Z92.89 Paraplegia G82.20 DVT prophylaxis Z29.9 (1) UTI (urinary tract infection) Hematuria presence: with hematuria Urinary tract infection type: site unspecified Qualified Code(s): N39.0 - Urinary tract infection, site not specified; R31.9 - Hematuria, unspecified (2) Hypothermia Encounter type: initial encounter Qualified Code(s): T68.XXXA - Hypothermia, initial encounter (3) Pneumonia Laterality: left Lung location: lower lobe of lung Pneumonia type: due to unspecified organism Qualified Code(s): J18.9 - Pneumonia, unspecified organism
[2019-12-23] MEDS: PSEUDOEPHEDRINE HCL 30 MG TAB PO PRN (20:28)
[2019-12-23] MEDS ORDERED: carBAMazepine 200 MG TABLET PO SCH (21:00)
[2019-12-24] MEDS: VANCOMYCIN HCL 1,250 MG in SODIUM CHLORIDE 0.9% 250 ML IV SCH ×2 (00:44→13:40)
[2019-12-24] MEDS: PIPERACILLIN/TAZOBACTAM 4.5 GM in DEXTROSE 5% 100 ML IV SCH ×3 (06:33→21:38)
[2019-12-24] MEDS ORDERED: PERFLUTREN LIPID MICROSPHERE (DEFINITY) IV ONE (07:13)
[2019-12-24 07:46] LABS: Basophils # (auto) 0.02 K/uL (0-0.2); Basophils % (auto) 0.5 %; Eosinophils # (auto) 0.05 K/uL (0-0.5); Eosinophils % (auto) 1.2 %; Hemoglobin 11.7 g/dL (12.0-16.0); Immature Granulocytes # (auto) 0.01 K/uL (0.00-0.02); Immature Granulocytes % (auto) 0.2 %; Lymphocytes % (auto) 22.4 %; Mean Corpuscular Hemoglobin 33.4 pg (25-34); Mean Corpuscular Hgb Conc 35.5 g/dL (32-36); Mean Corpuscular Volume 94.3 fL (80-100); Mean Platelet Volume 9.8 fL (7.4-10.4); Monocytes # (auto) 0.74 K/uL (0.11-0.59); Monocytes % (auto) 18.4 %; Neutrophils % (auto) 57.3 %; Platelet Count 135 K/uL (130-400); RDW Coefficient of Variation 15.1 % (11.5-14.5); RDW Standard Deviation 51.3 fL (36.4-46.3); White Blood Count 4.02 K/uL (4.8-10.8)
[2019-12-24] MEDS: MULTIVITAMIN TAB PO SCH (07:52)
[2019-12-24] MEDS: guaiFENesin 600 MG TABCR PO SCH (07:52)
[2019-12-24] MEDS: DOCUSATE SODIUM 100 MG CAP PO SCH (07:52)
[2019-12-24] MEDS: lamoTRIgine 100 MG TAB PO SCH ×2 (07:52→16:17)
[2019-12-24] MEDS: carBAMazepine 200 MG TABLET PO SCH ×3 (07:52→16:19)
[2019-12-24] MEDS: DIVALPROEX SODIUM SPRINKLE 125 MG CAP PO SCH ×2 (07:53→16:18)
[2019-12-24] MEDS: PSEUDOEPHEDRINE HCL 30 MG TAB PO PRN (07:55)
[2019-12-24] MEDS: ENOXAPARIN INJ 40 MG/0.4 ML SYR SQ SCH (07:55)
[2019-12-24] MEDS: MAGNESIUM OXIDE 400 MG TAB PO SCH (07:56)
[2019-12-24] MEDS: diazePAM 5 MG TABLET PO SCH ×2 (08:01→16:18)
--- NOTE | 2019-12-24 08:01 | XRay Report ---
XR chest 1V portable CLINICAL HISTORY: PNA, hypoxia COMPARISON STUDY: 12/22/2019 FINDINGS: Interval development of right mid and basilar parenchymal infiltrate combined with a small right effusion. Minimal atelectasis left base. The mid and upper left lung is clear. Tracheostomy tube remains in good position. IMPRESSION: Interval development of a right basilar parenchymal infiltrate possibly combined with a small right effusion. Infiltrate left base stable to slightly improved. ACT 112: Negative or not required by law. The above report was generated using voice recognition software. It may contain grammatical, syntax or spelling errors. Electronically signed by: Jae Villeda M.D. 12/24/2019 8:00 AM
[2019-12-24 08:15] LABS: Albumin Level 2.5 gm/dl (3.4-5.0); BUN Creatinine Ratio 16.5 (10-20); Calcium 9.2 mg/dl (8.5-10.1); Creatinine Clr Calc Pharmacy 193.8 ml/min; Est GFR (African American) 148.8; Est GFR (Non-African American) 128.4; Potassium 3.9 mmol/L (3.5-5.1)
[2019-12-24 08:28] LABS: Albumin Globulin Ratio 0.6 (0.9-2); Bilirubin,Total 0.2 mg/dl (0.2-1); Thyroid Stimulating Hormone 2.31 uIu/ml (0.300-4.500); Total Protein 6.5 gm/dl (6.4-8.2)
[2019-12-24] MEDS ORDERED: MAGNESIUM OXIDE 200 MG PO SCH (09:00)
--- NOTE | 2019-12-24 10:13 | Hospitalist Progress Note ---
Date of Service December 24, 2019 Assessment & Plan (1) Pneumonia: Nikia Pickens is a 49 y/o female with past medical hx of pneumonia, MRSA UTI, hypothyroid, general epilepsy, paraplegia wheelchair bound, intellectual disability, tracheostomy, peg tube, who was admitted for LLL Pneumonia and hypoxia. PNA/Acute respiratory failure with hypoxia -CXR 12/24- Interval development of a right basilar parenchymal infiltrate possibly combined with a small right effusion. Infiltrate left base stable to slightly improved - In ED received treatment for CAP with Azithromycin 500mg x1 and Rocephin 2gm IV x1; but at risk for HAP and also aspiration pneumonia and was since changed to IV Zosyn and Vanc. - Hx of MRSA UTI, MRSA swab is POSITIVE - Flu swab negative in ED, did get annual influenza vaccination -PCT negative - Blood cultures-NGTD - Aspiration precautions -Currently sating well on 5L/min FiO2 ratio 30- weaning down as tolerated. No home O2 needs -continuous Pulse Ox per mother request -Pulm consult appreciated - Trach care -chest PT and aggressive suctioning - Mucomyst and duo nebs for wheezing - continue with home guaifenesin - pulmonary toilet - continue prn Sudafed Hyponatremia -Follows with Dr. Torres with nephrology -Noted as chronic for the last 2 years -Na 125 on admission, now improved to 134 with IVF -Urine osmol 200 , Random Urine Na 45 -Free water flushes of the gastric tube include only 240 mL of normal saline to wash down meds in the morning -With peripheral edema, chronic lung issues, trach, could have right sided heart failure -ECHO: pending -follow BMP, daily weights Hypothyroidism -continue with home levothyroxine 88mcg PO qAM -TSH WNL 2.31 this admission Hypothermia -Follow-up outpatient with Dr. Zabala. Seeing Endocrine for this in a few weeks -Noted in history, intermittent here -Monitor and keep warm PRN UTI - Chronic indwelling Larson catheter in place. Larson care as needed -Positive nitrates on Urine in ED -Coverage provided with Zosyn -follow culture-pinpoint growth so far, reincubating -has suprapubic cath in place Seizure disorder -continue with home meds including Tegretol 200mg qAM PO, Tegretol 400mg PO qPM, Diazepam 5mg PO BID, Divalproex 625mg PO BID, Lamictal 100mg PO BIDM - Noted to need brand names - Seizure precautions Tracheostomy tube present -Placed in 2008 secondary to difficult extubation. Currently Claudia seaman #4 -Patient follows in [place] for regular maintenance by ENT -Tracheostomy care order placed per shift PRN; getting supplemental O2 via trach Paraplegia -Noted from prior seizure causing T2-T3 injury from hematoma. -Wheel chair bound -supportive care, frequent repositioning, bowel regimen FEN/GI: Regular diet by mouth, G-tube for meds, flushes DVT prophylaxis: Lovenox 40mg q24h Full Code Dispo: Continued stay on PCU, isolation precautions since hx of MRSA Supervising Physician Co-Signing Physician Notes I saw the patient with the resident physician and confirmed rodney portions of the history and physical examination. Also discussed the case with the patient's parents, both of whom are bedside with the patient. I familiar with all 3 of them as they are all seen in our office as outpatients. Per her parents, Nikia looks better today. In fact, as we are talking it is clear that she is listening to our conversation; she does open her eyes and laughs at the fact that she was listening all along. Nikia is usually very comical in her own way like this -so it is reassuring to see her acting more herself this afternoon. She remains afebrile, although she has a degree of hypothermia at baseline so fever is not a great indicator for her. She seems to have less upper airway congestion. Upon examination, no acute distress. Hemodynamically stable Heart is regular Lungs sounds are globally decreased, bibasilar crackles, mid to end expiratory wheeze Pneumonia Appreciate pulmonary input Continue antibiotics Chest PT and suctioning Hyponatremia, chronic This is actually improved, likely due to the fluids given upon her initial presentation She had some slight peripheral edema yesterday although this looks improved today Hold off on additional fluids and monitor sodium; I suspect she will drift back to her normal 127-130 range Hypothyroidism TSH was actually normal at 2.310 There is always been the question if she had adrenal insufficiency (hyponatremia and hypothermia); previous work-up was negative, although we will get a cortisol with next labs. It should be elevated can compared to a baseline level I took about 6 months ago when she was well. If it is not, this would support some degree of adrenal insufficiency. Subjective 49 yo F found in bed this AM, mother also in room. No overnight events. Mom reports that pt seems to be doing better, secretions thinning out and overall looks more like herself. Still O2 requirement, weaning down, sats improved. No other acute concerns or complaints. Review of Systems Review of Systems: All systems reviewed & are unremarkable except as noted in HPI & below Physical Exam Constitutional: WD/WN, vitals as above + physical limitations (paraplegic ) Eyes: PERRL, conjunctivae normal, anicteric sclerae ENMT: external ear and nose normal, oropharynx normal Neck: trachea midline, no thyromegaly (trach tube in place with trach collar) Respiratory: Auscultation: + rhonchi (b/l bases) and + wheezes (exp wheezing) Cardiovascular: RRR, no murmur, no edema Gastrointestinal (Abdomen): normal bowel sounds, soft, nontender, no hepatos plenomegaly (PEG tube in place) Skin: no rashes, warm and dry Psychiatric: Speech: + abnormal rate/rhythm/volume of speech (mute) Genitourinary: + bladder abnormality (suprapubic catheter in place) Lymphatic: +1 LE edema Results & Data Vital Signs (Past 12 Hours) Vital Signs Temp Pulse Pulse Pulse Resp BP BP 12/24/19 08:11 36.4 C L 70 18 129/80 12/24/19 04:46 36.4 C L 73 16 111/76 12/24/19 00:30 36.7 C 74 18 125/84 12/23/19 23:30 62 Pulse Ox 12/24/19 08:11 92 12/24/19 04:46 95 12/24/19 00:30 93 12/23/19 23:30 Laboratory Results Laboratory Results - last 24 hr 12/23/19 12/23/19 12/23/19 11:26 11:26 11:26 WBC RBC Hgb Hct MCV MCH MCHC RDW Std Deviation RDW Coeff of Nazan[place] Plt Count MPV Immature Gran % (Auto) Neut % (Auto) Lymph % (Auto) [place] % (Auto) Eos % (Auto) Baso % (Auto) Immature Gran # (Auto) Neut # (Auto) Lymph # (Auto) [place] # (Auto) Eos # (Auto) Baso # (Auto) ESR 40 H Sodium Potassium Chloride Carbon Dioxide Anion Gap BUN Creatinine Est Cr Clr Drug Dosing Est GFR ( Amer) Est GFR (Non-Af Amer) BUN/Creatinine Ratio Glucose Calcium Total Bilirubin AST ALT Alkaline Phosphatase C-Reactive Protein 8.97 H Total Protein Albumin Globulin Albumin/Globulin Ratio Procalcitonin < 0.05 TSH Urine Osmolality Ur Random Sodium 12/24/19 12/24/19 12/24/19 04:50 04:50 07:24 WBC RBC Hgb Hct MCV MCH MCHC RDW Std Deviation RDW Coeff of [place] Plt Count MPV Immature Gran % (Auto) Neut % (Auto) Lymph % (Auto) [place] % (Auto) Eos % (Auto) Baso % (Auto) Immature Gran # (Auto) Neut # (Auto) Lymph # (Auto) [place] # (Auto) Eos # (Auto) Baso # (Auto) ESR Sodium 134 L D Potassium 3.9 Chloride 101 Carbon Dioxide 27 Anion Gap 6.0 BUN 6 L Creatinine 0.36 L Est Cr Clr Drug Dosing 193.8 Est GFR ( Amer) 148.8 Est GFR (Non-Af Amer) 128.4 BUN/Creatinine Ratio 16.5 Glucose 91 Calcium 9.2 Total Bilirubin 0.2 AST 12 L ALT 12 Alkaline Phosphatase 78 C-Reactive Protein Total Protein 6.5 Albumin 2.5 L Globulin 4.0 Albumin/Globulin Ratio 0.6 L Procalcitonin TSH 2.310 Urine Osmolality 200 L Ur Random Sodium 45 12/24/19 07:24 WBC 4.02 L RBC 3.50 L Hgb 11.7 L Hct 33.0 L MCV 94.3 MCH 33.4 MCHC 35.5 RDW Std Deviation 51.3 H RDW Coeff of Nazanin 15.1 H Plt Count 135 MPV 9.8 Immature Gran % (Auto) 0.2 Neut % (Auto) 57.3 Lymph % (Auto) 22.4 [place] % (Auto) 18.4 Eos % (Auto) 1.2 Baso % (Auto) 0.5 Immature Gran # (Auto) 0.01 Neut # (Auto) 2.30 Lymph # (Auto) 0.90 L [place] # (Auto) 0.74 H Eos # (Auto) 0.05 Baso # (Auto) 0.02 ESR Sodium Potassium Chloride Carbon Dioxide Anion Gap BUN Creatinine Est Cr Clr Drug Dosing Est GFR ( Amer) Est GFR (Non-Af Amer) BUN/Creatinine Ratio Glucose Calcium Total Bilirubin AST ALT Alkaline Phosphatase C-Reactive Protein Total Protein Albumin Globulin Albumin/Globulin Ratio Procalcitonin TSH Urine Osmolality Ur Random Sodium Medications Administered Current Inpatient Medications Carbamazepine (Tegretol) 200 mg PO QAM [facility] Stop: 01/22/20 08:59 Last Admin: 12/24/19 07:53 Dose: 200 mg Documented by: Carbamazepine (Tegretol) 400 mg PO QDD [facility] Stop: 01/22/20 18:14 Last Admin: 12/23/19 18:03 Dose: 400 mg Documented by: Diazepam (Valium) 5 mg PO BIDM [facility] Stop: 01/22/20 17:44 Last Admin: 12/24/19 08:01 Dose: 5 mg Documented by: Divalproex Sodium (Depakote Sprinkle) 625 mg PO BIDM [facility] Stop: 01/22/20 17:44 Last Admin: 12/24/19 07:53 Dose: 625 mg Documented by: Docusate Sodium (Colace) 100 mg PO [facility] Stop: 01/22/20 08:59 Last Admin: 12/24/19 07:52 Dose: 100 mg Documented by: Enoxaparin Sodium (Lovenox) 40 mg SQ Q24H [facility] Stop: 01/21/20 23:14 Last Admin: 12/24/19 07:55 Dose: 40 mg Documented by: Guaifenesin (Mucinex) 600 mg PO HS PRN PRN Reason: Congestion Stop: 01/22/20 00:01 Guaifenesin (Mucinex) 600 mg PO [facility] Stop: 01/22/20 08:59 Last Admin: 12/24/19 07:52 Dose: 600 mg Documented by: Piperacillin Sod/Tazobactam (Sod 4.5 gm/ Dextrose) 120 mls @ 30 mls/hr IV Q8H [facility]; Protocol Stop: 12/30/19 05:59 Last Infusion: 12/24/19 10:08 Dose: Infused Documented by: Vancomycin HCl 1,250 mg/ (Sodium Chloride) 275 mls @ 125 mls/hr IV Q12H [facility] Stop: 12/30/19 11:59 Last Infusion: 12/24/19 03:29 Dose: Infused Documented by: Lamotrigine (Lamictal) 100 mg PO BIDM [facility] Stop: 01/22/20 07:59 Last Admin: 12/24/19 07:52 Dose: 100 mg Documented by: Levothyroxine Sodium (Synthroid) 88 mcg PO DAILY@1100 [facility]; Protocol Stop: 01/22/20 10:59 Last Admin: 12/23/19 11:36 Dose: 88 mcg Documented by: Magnesium Oxide (Mag-Ox) 400 mg PO Q48H [facility] Stop: 01/22/20 08:59 Last Admin: 12/23/19 07:31 Dose: 400 mg Documented by: Magnesium Oxide (Mag-Ox) 200 mg PO Q48H [facility] Stop: 01/23/20 08:59 Last Admin: 12/24/19 07:56 Dose: 200 mg Documented by: Miscellaneous Information (Consult) 1 ea N/A UD PRN PRN Reason: Consult Stop: 01/21/20 22:38 Miscellaneous Information (Consult) 1 ea N/A UD PRN PRN Reason: Consult Stop: 01/21/20 22:38 Multivitamins (Multivitamin Tab) 1 tab PO [facility] Stop: 01/22/20 08:59 Last Admin: 12/24/19 07:52 Dose: 1 tab Documented by: Ondansetron HCl (Zofran) 4 mg IV Q6H PRN PRN Reason: Nausea Stop: 01/22/20 00:01 Polyethylene Glycol (Miralax Powder Packet) 17 gm PO DAILY PRN PRN Reason: Constipation Stop: 01/22/20 00:01 Pseudoephedrine HCl (Suphedrine Sinus Congestion) 30 mg PO Q4H PRN PRN Reason: nasal congestion Stop: 01/22/20 19:29 Last Admin: 12/24/19 07:55 Dose: 30 mg Documented by: Resident Activity Tracking Resident Involvement: Resident Care Provided Care Provided: Adult Hospital Medicine (1) Pneumonia Laterality: left Lung location: lower lobe of lung Pneumonia type: due to unspecified organism Qualified Code(s): J18.9 - Pneumonia, unspecified organism
--- NOTE | 2019-12-24 12:02 | XCELERA ---
[id number] [id number]
--- NOTE | 2019-12-24 13:15 | Pulmonology Progress Note ---
Date of Service December 24, 2019 Assessment & Plan (1) Pneumonia: -- Acute hypoxic respiratory failure Patient takes everything orally and only uses the gastric tube for medications and free water flush Mother states that very seldom does the patient aspirate and due to full supervision they are able to suction from the tracheostomy tube before aspiration. MRSA nasal screen is positive by swab Negative for influenza A or B Currently oxygenating well with trach collar, keep oxygen greater than 92% Continue with antibiotics. We will get chest PT and aggressive suctioning i nvolved along with Mucomyst and duo nebs for her wheezing f/u sputum culture and urine culture. Chest x-ray from today reviewed: Is a portable film rotated to the right, left lower lobe infiltrate still persist. Right lower lobe cannot be commented on because of severe rotation. 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 Was sleeping at time of examination. Family was present at bedside father and mother. As per the family she is more alert since the time she came to the hospital. No documented fever in the hospital. She has been being suctioned by the respite therapist. Patient denies any chest pain, no headache, no nausea or vomiting. Review of Systems Review of Systems: All systems reviewed & are unremarkable except as noted in HPI & below and Unobtainable due to cognitive status Physical Exam Physical Exam: Constitutional: No acute distress HEENT: EOMI, PERRLA, size [address] Respiratory system: Decreased air entry bilaterally, positive bilateral lower lobe crackles, expiratory wheeze, no rhonchi CVS: S1-S2 positive, no murmurs or gallops Abdomen: Soft, nontender, nondistended, positive bowel sounds x4, positive PEG tube Extremities: +2 pulses bilaterally radialis/ dorsalis pedis, no cyanosis, no edema Neuro: Awake and alert Psych: Normal mood and affect G/U: Suprapubic Larson Skin: no rashes, warm and dry Lymphatic: no cervical or axillary lymphadenopathy Results & Data Vital Signs (Past 12 Hours) Vital Signs Temp Pulse Pulse Pulse Resp BP BP 12/24/19 12:12 36.3 C L 68 18 136/81 12/24/19 10:10 64 12/24/19 08:11 36.4 C L 70 18 129/80 12/24/19 04:46 36.4 C L 73 16 111/76 Pulse Ox 12/24/19 12:12 90 12/24/19 10:10 12/24/19 08:11 92 12/24/19 04:46 95 12/24/19 07:24 12/24/19 07:24 PG Care Time/CCT Total # of Minutes Spent Total Time Spent with Patient: Total time spent is greater than 50% in coordination of care (as documented) at patient's floor/unit and/or counseling patient: Coding Level of Care Code 71877 Subseq Hosp Care Lvl 3 Diagnoses Pneumonia J18.9 Laterality: left Lung location: lower lobe of lung Pneumonia type: due to unspecified organism Hypoxia R09.02 Tracheostomy tube present Z93.0 DVT prophylaxis Z29.9
[2019-12-24] MEDS: LEVOTHYROXINE SODIUM 88 MCG TABLET PO SCH ×2 (13:18→14:02)
[2019-12-24] MEDS: ALBUT/IPRATROP 3MG/0.5MG NEB 3 ML VIAL NEB SCH ×2 (13:51→19:16)
[2019-12-24] MEDS: ACETYLCYSTEINE 20% INHAL SOLN 4ML ***DISPENSED BY RESP. INH SCH ×2 (13:51→19:21)
--- NOTE | 2019-12-24 17:28 | Electrocardiogram Report ---
Test Reason : Blood Pressure : / mmHG Vent. Rate : 089 BPM Atrial Rate : 089 BPM P-R Int : 168 ms QRS Dur : 078 ms QT Int : 328 ms P-R-T Axes : 062 062 -35 degrees QTc Int : 399 ms Poor data quality, interpretation may be adversely affected Normal sinus rhythm Abnormal ECG When compared with ECG of 05-OCT-2019 13:39, [place] interval has decreased T wave inversion less evident in Inferior leads Confirmed by Anthony Mejia ([id number]) on 12/24/2019 5:28:16 PM Referred By: REFERRED SELF Confirmed By:Ravindra Mejia
[2019-12-24] MEDS ORDERED: carBAMazepine 200 MG TABLET PO SCH (17:45)
[2019-12-24] MEDS ORDERED: VANCOMYCIN TROUGH ONE (23:30)
[2019-12-25] MEDS: VANCOMYCIN HCL 1,250 MG in SODIUM CHLORIDE 0.9% 250 ML IV SCH (00:25)
[2019-12-25 06:08] LABS: Basophils # (auto) 0.02 K/uL (0-0.2); Basophils % (auto) 0.5 %; Eosinophils # (auto) 0.08 K/uL (0-0.5); Eosinophils % (auto) 2.1 %; Hematocrit (blood only) 31.4 % (37-47); Hemoglobin 10.7 g/dL (12.0-16.0); Immature Granulocytes # (auto) 0.01 K/uL (0.00-0.02); Immature Granulocytes % (auto) 0.3 %; Lymphocytes # (auto) 1.28 K/uL (1.2-3.4); Lymphocytes % (auto) 34.3 %; Mean Corpuscular Hemoglobin 32.4 pg (25-34); Mean Corpuscular Hgb Conc 34.1 g/dL (32-36); Mean Corpuscular Volume 95.2 fL (80-100); Mean Platelet Volume 9.8 fL (7.4-10.4); Monocytes # (auto) 0.63 K/uL (0.11-0.59); Monocytes % (auto) 16.9 %; Neutrophils # (auto) 1.71 K/uL (1.4-6.5); Neutrophils % (auto) 45.9 %; Platelet Count 148 K/uL (130-400); RDW Coefficient of Variation 15.2 % (11.5-14.5); RDW Standard Deviation 52.7 fL (36.4-46.3); White Blood Count 3.73 K/uL (4.8-10.8)
[2019-12-25] MEDS: PIPERACILLIN/TAZOBACTAM 4.5 GM in DEXTROSE 5% 100 ML IV SCH ×3 (06:44→22:32)
[2019-12-25 06:51] LABS: BUN Creatinine Ratio 20.3 (10-20); Calcium 8.9 mg/dl (8.5-10.1); Creatinine Clr Calc Pharmacy 159.8 ml/min; Est GFR (African American) 139.3; Est GFR (Non-African American) 120.2; Potassium 4.4 mmol/L (3.5-5.1)
--- NOTE | 2019-12-25 07:10 | XRay Report ---
XR chest 1V portable HISTORY: 49 years-old Female f/u up study in a patient with respiratory distress COMPARISON: Chest radiograph 12/24/2019 TECHNIQUE: Portable AP view of the chest FINDINGS: Patient's chin obscures the right lung apex. Second image was then obtained. Tracheostomy cannula ove rlying the midline redemonstrated. Cardiomegaly. Small right and trace left pleural effusions. Right greater than left bibasilar opacities. Progressively worsened right upper lung airspace opacities. Pu lmonary vascular congestion. Degenerative changes of the shoulders and spine. IMPRESSION: 1. Cardiomegaly with pulmonary vascular congestion. 2. Right greater than left pleural effusions and bibasilar opacities are redemonstrated with slightly progressive right upper lobe airspace opacities. ACT 112: Negative or not required by law. The above report was generated using voice recognition software. It may contain grammatical, syntax o r spelling errors. Electronically signed by: Hayes Corona M.D. 12/25/2019 7:09 AM
[2019-12-25] MEDS: ALBUT/IPRATROP 3MG/0.5MG NEB 3 ML VIAL NEB SCH ×4 (07:12→19:14)
[2019-12-25] MEDS: ACETYLCYSTEINE 20% INHAL SOLN 4ML ***DISPENSED BY RESP. INH SCH ×2 (07:12→19:15)
[2019-12-25] MEDS: carBAMazepine 200 MG TABLET PO SCH ×2 (07:34→17:08)
[2019-12-25] MEDS: ENOXAPARIN INJ 40 MG/0.4 ML SYR SQ SCH (07:34)
[2019-12-25] MEDS: DIVALPROEX SODIUM SPRINKLE 125 MG CAP PO SCH ×2 (07:35→17:08)
[2019-12-25] MEDS: guaiFENesin 600 MG TABCR PO SCH (07:35)
[2019-12-25] MEDS: lamoTRIgine 100 MG TAB PO SCH ×2 (07:36→17:09)
[2019-12-25] MEDS: MAGNESIUM OXIDE 400 MG TAB PO SCH (07:36)
[2019-12-25] MEDS: MULTIVITAMIN TAB PO SCH (07:37)
[2019-12-25] MEDS: DOCUSATE SODIUM 100 MG CAP PO SCH (07:37)
[2019-12-25] MEDS: diazePAM 5 MG TABLET PO SCH ×2 (07:40→17:10)
--- NOTE | 2019-12-25 09:15 | Pharmacy Report ---
Pharmacy Abx Dose Short Note - Date of Service December 25, 2019 - Assessment & Plan Assessment * 49 year old F receiving vancomycin/zosyn for treatment of pneumonia * Patient with MRSA history and MRSA nasal swab positive * Given paraplegia, current CrCL likely overestimating true function Vancomycin * Trough of 25.5 mcg/mL is supratherapeutic * Vancomycin placed on hold - will dose by level for now * Next random level scheduled for ~14 hours after previous dose was only slightly supratherapeutic at 21 mcg/mL - will give one-time dose a few hours after and the obtain a repeat random level with AM labs Plan * Vancomycin 1000 mg IV @ 1600 * Random level w AM labs tomorrow Pharmacy will continue to follow and will adjust dose/frequency as necessary. Thank you.
[2019-12-25] MEDS: LEVOTHYROXINE SODIUM 88 MCG TABLET PO SCH (10:32)
[2019-12-25] MEDS ORDERED: VANCOMYCIN HCL 1,000 MG in SODIUM CHLORIDE 0.9% 250 ML IV ONE (16:00)
--- NOTE | 2019-12-25 17:28 | Hospitalist Progress Note ---
Date of Service December 25, 2019 Assessment & Plan (1) Pneumonia: Nikia Pickens is a 49 y/o female with past medical hx of pneumonia, MRSA UTI, hypothyroid, general epilepsy, paraplegia wheelchair bound, intellectual disability, tracheostomy, peg tube, who was admitted for LLL Pneumonia and hypoxia. Acute respiratory failure with hypoxia/ Likely MRSA PNA vs Aspiration PNA -CXR 12/25- Cardiomegaly with pulmonary vascular congestion. Right greater than left pleural effusions and bibasilar opacities are redemonstrated with slightly progressive right upper lobe airspace opacities. - In ED received treatment for CAP with Azithromycin 500mg x1 and Rocephin 2gm IV x1; but at risk for HAP and also aspiration pneumonia and was since changed to IV Zosyn and Vanc. - Hx of MRSA UTI, MRSA swab is POSITIVE - Flu swab negative in ED, did get annual influenza vaccination -PCT negative - Blood cultures-NGTD - Aspiration precautions -Currently sating well on 5L/min FiO2 ratio 30- weaning down as tolerated. No home O2 needs -continuous Pulse Ox per mother request - Trach care -chest PT and aggressive suctioning - Mucomyst and duo nebs for wheezing - continue with home guaifenesin - pulmonary toilet - continue prn Sudafed -Pulm consult appreciated Chronic Hyponatremia -Follows with Dr. Torres with nephrology -Noted as chronic for the last 2 years -Na 125 on admission, now improved to 137. Unsure why it continues to rise, we have stopped IVF -Urine osmol 200 , Random Urine Na 45 -Free water flushes of the gastric tube include only 240 mL of normal saline to wash down meds in the morning -With peripheral edema, chronic lung issues, trach, could have right sided heart failure -Reviewed ECHO: Grossly normal. -follow BMP, daily weights Hypothyroidism -continue with home levothyroxine 88mcg PO qAM -TSH WNL 2.31 this admission -question of adrenal insufficiency given hyponatremia/hypothermia. Random cortisol was WNL at 7, however. Low threshold of starting steroids moving forward Hypothermia -Follow-up outpatient with Dr. Zabala. Seeing Endocrine for this in a few weeks -Noted in history, intermittent here -Monitor and keep warm PRN Possibly Suprapubic Catheter related UTI - Chronic indwelling Larson catheter in place. Larson care as needed -Positive nitrates on Urine in ED -Coverage provided with Zosyn -follow culture-pinpoint growth so far, reincubating -has suprapubic cath in place Seizure disorder -continue with home meds including Tegretol 200mg qAM PO, Tegretol 400mg PO qPM, Diazepam 5mg PO BID, Divalproex 625mg PO BID, Lamictal 100mg PO BIDM - Noted to need brand names - Seizure precautions Tracheostomy tube present -Placed in 2008 secondary to difficult extubation. Currently Claudia cuffless #4 -Patient follows in [place] for regular maintenance by ENT -Tracheostomy care order placed per shift PRN; getting supplemental O2 via trach Paraplegia -Noted from prior seizure causing T2-T3 injury from hematoma. -Wheel chair bound -supportive care, frequent repositioning, bowel regimen FEN/GI: Regular diet by mouth, G-tube for meds, flushes DVT prophylaxis: Lovenox 40mg q24h Full Code Dispo: Continued stay on PCU, isolation precautions since hx of MRSA Supervising Physician Co-Signing Physician Notes I saw the patient with the resident physician and confirmed rodney portions of the history and physical examination. I agree with the impression and plan as noted above. Her parents again think she looks better than yesterday. She is more at her baseline. The oxygen had been removed and the patient's pulse oximetry remained above 92% for a time, however it sounds as if she had some plugging and while suctioning she dropped to the low to mid 80s. She is now back on trach collar, 28 L/min, with pulse oximetry 98%. Pneumonia Appreciate pulmonary input Continue antibiotics Chest PT and suctioning Hyponatremia, chronic This is actually improved, likely due to the fluids given upon her initial presentation Hold off on additional fluids and monitor sodium. Hypothyroidism TSH was actually normal at 2.310 Random cortisol was relatively low considering the acute illness; she had passed a stim test last year, so I think she has some degree of relative adrenal insufficiency. Should she show any signs of hemodynamic instability, or other signs of adrenal sufficiency, would not hesitate to supplement/stress dose. Subjective 49 yo F found in bed this AM, mother also in room. No overnight events. Mom reports that pt seems to be doing better, secretions thinning out and overall looks more like herself. Still O2 requirement, weaning down, sats improved. Tolerating PO intake. No other acute concerns or complaints. Review of Systems Review of Systems: All systems reviewed & are unremarkable except as noted in HPI & below Physical Exam Constitutional: WD/WN, vitals as above + physical limitations (paraplegic ) Eyes: PERRL, conjunctivae normal, anicteric sclerae ENMT: external ear and nose normal, oropharynx normal Neck: trachea midline, no thyromegaly (trach tube in place with trach collar) Respiratory: Auscultation: + rhonchi (b/l bases) and + wheezes (exp wheezing) Cardiovascular: RRR, no murmur, no edema Gastrointestinal (Abdomen): normal bowel sounds, soft, nontender, no hepatosplenomegaly (PEG tube in place) Skin: no rashes, warm and dry Psychiatric: Speech: + abnormal rate/rhythm/volume of speech (mute) Genitourinary: + bladder abnormality (suprapubic catheter in place) Results & Data ([place]) Vital Signs (Past 12 Hours) Vital Signs Temp Pulse Pulse Pulse Resp BP BP 12/25/19 16:48 36.9 C 63 20 129/81 12/25/19 16:00 58 L 18 12/25/19 15:15 36.4 C L 62 18 124/85 12/25/19 11:13 77 18 12/25/19 08:00 60 12/25/19 07:47 36.8 C 72 19 130/80 12/25/19 07:12 95 H 18 Pulse Ox 12/25/19 16:48 98 12/25/19 16:00 97 12/25/19 15:15 96 12/25/19 11:13 95 12/25/19 08:00 12/25/19 07:47 92 12/25/19 07:12 93 Laboratory Results Laboratory Results - last 24 hr 12/24/19 12/25/19 12/25/19 23:14 05:58 05:58 WBC 3.73 L RBC 3.30 L Hgb 10.7 L Hct 31.4 L MCV 95.2 MCH 32.4 MCHC 34.1 RDW Std Deviation 52.7 H RDW Coeff of Nazanin 15.2 H Plt Count 148 MPV 9.8 Immature Gran % (Auto) 0.3 Neut % (Auto) 45.9 Lymph % (Auto) 34.3 Duchesne % (Auto) 16.9 Eos % (Auto) 2.1 Baso % (Auto) 0.5 Immature Gran # (Auto) 0.01 Neut # (Auto) 1.71 Lymph # (Auto) 1.28 Duchesne # (Auto) 0.63 H Eos # (Auto) 0.08 Baso # (Auto) 0.02 Sodium 137 Potassium 4.4 Chloride 105 Carbon Dioxide 28 Anion Gap 4.0 BUN 9 Creatinine 0.44 L Est Cr Clr Drug Dosing 159.8 Est GFR ( Amer) 139.3 Est GFR (Non-Af Amer) 120.2 BUN/Creatinine Ratio 20.3 H Glucose 85 Calcium 8.9 Random Cortisol Vancomycin Trough 25.5 Random Vancomycin 12/25/19 12/25/19 05:59 14:02 WBC RBC Hgb Hct MCV MCH MCHC RDW Std Deviation RDW Coeff of Nazanin Plt Count MPV Immature Gran % (Auto) Neut % (Auto) Lymph % (Auto) Duchesne % (Auto) Eos % (Auto) Baso % (Auto) Immature Gran # (Auto) Neut # (Auto) Lymph # (Auto) Duchesne # (Auto) Eos # (Auto) Baso # (Auto) Sodium Potassium Chloride Carbon Dioxide Anion Gap BUN Creatinine Est Cr Clr Drug Dosing Est GFR ( Amer) Est GFR (Non-Af Amer) BUN/Creatinine Ratio Glucose Calcium Random Cortisol 7.09 Vancomycin Trough Random Vancomycin 21.0 Medications Administered Current Inpatient Medications Acetylcysteine (Mucomyst 20%) 5 ml INH Q12R [facility] Stop: 01/23/20 13:29 Last Admin: 12/25/19 07:12 Dose: 5 ml Documented by: Albuterol (Duoneb) 3 ml NEB QIDR [facility] Stop: 01/23/20 14:59 Last Admin: 12/25/19 15:59 Dose: 3 ml Documented by: Carbamazepine (Tegretol) 200 mg PO QAM [facility] Stop: 01/22/20 08:59 Last Admin: 12/25/19 07:34 Dose: 200 mg Documented by: Carbamazepine (Tegretol) 400 mg PO QDD [facility] Stop: 01/22/20 18:14 Last Admin: 12/25/19 17:08 Dose: 400 mg Documented by: Diazepam (Valium) 5 mg PO BIDM [facility] Stop: 01/22/20 17:44 Last Admin: 12/25/19 17:10 Dose: 5 mg Documented by: Divalproex Sodium (Depakote Sprinkle) 625 mg PO BIDM [facility] Stop: 01/22/20 17:44 Last Admin: 12/25/19 17:08 Dose: 625 mg Documented by: Docusate Sodium (Colace) 100 mg PO QAM [facility] Stop: 01/22/20 08:59 Last Admin: 12/25/19 07:37 Dose: 100 mg Documented by: Enoxaparin Sodium (Lovenox) 40 mg SQ Q24H [facility] Stop: 01/21/20 23:14 Last Admin: 12/25/19 07:34 Dose: 40 mg Documented by: Guaifenesin (Mucinex) 600 mg PO HS PRN PRN Reason: Congestion Stop: 01/22/20 00:01 [facility]inex) [facility] [place]: 01/22/20 08:59 Last Admin: 12/25/19 07:35 Dose: 600 mg Documented by: Piperacillin Sod/Tazobactam (Sod 4.5 gm/ Dextrose) 120 mls @ 30 mls/hr IV Q8H [facility]; Protocol Stop: 12/30/19 05:59 Last Admin: 12/25/19 14:29 Dose: 30 mls/hr Documented by: Vancomycin HCl 1,000 mg/ (Sodium Chloride) 270 mls @ 125 mls/hr IV TODAY@1600 ONE Stop: 12/25/19 18:09 Lamotrigine (Lamictal) [facility] [place]: 01/22/20 07:59 Last Admin: 12/25/19 17:09 Dose: 100 mg Documented by: Levothyroxine Sodium (Synthroid) 88 mcg PO DAILY@1000 RUDDY; Protocol Stop: 01/23/20 10:59 Last Admin: 12/25/19 10:32 Dose: 88 mcg Documented by: Magnesium Oxide (Mag-Ox) 400 mg PO Q48H [facility] Stop: 01/22/20 08:59 Last Admin: 12/25/19 07:36 Dose: 400 mg Documented by: Magnesium Oxide (Mag-Ox) 200 mg PO Q48H [facility] Stop: 01/23/20 08:59 Last Admin: 12/24/19 07:56 Dose: 200 mg Documented by: Miscellaneous Information (Consult) 1 ea N/A UD PRN PRN Reason: Consult Stop: 01/21/20 22:38 Miscellaneous Information (Consult) 1 ea N/A UD PRN PRN Reason: Consult Stop: 01/21/20 22:38 Multivitamins (Multivitamin Tab) 1 tab PO QAM RDUDY Stop: 01/22/20 08:59 Last Admin: 12/25/19 07:37 Dose: 1 tab Documented by: Ondansetron HCl (Zofran) 4 mg IV Q6H PRN PRN Reason: Nausea Stop: 01/22/20 00:01 Polyethylene Glycol (Miralax Powder Packet) 17 gm PO DAILY PRN PRN Reason: Constipation Stop: 01/22/20 00:01 Pseudoephedrine HCl (Suphedrine Sinus Congestion) 30 mg PO Q4H PRN PRN Reason: nasal congestion Stop: 01/22/20 19:29 Last Admin: 12/24/19 07:55 Dose: 30 mg Documented by: Resident Activity Tracking Resident Involvement: Resident Care Provided Care Provided: Adult Hospital Medicine (1) Pneumonia Laterality: left Lung location: lower lobe of lung Pneumonia type: due to unspecified organism Qualified Code(s): J18.9 - Pneumonia, unspecified organism
--- NOTE | 2019-12-25 18:23 | Pulmonology Progress Note ---
Date of Service December 25, 2019 Assessment & Plan (1) Pneumonia: -- Acute hypoxic respiratory failure Patient takes everything orally and only uses the gastric tube for medications and free water flush Mother states that very seldom does the patient aspirate and due to full sup ervision they are able to suction from the tracheostomy tube before aspiration. MRSA nasal screen is positive by swab Negative for influenza A or B Currently oxygenating well with trach collar, keep oxygen greater than 92% Continue with antibiotics. Chest PT and aggressive suctioning involved along with Mucomyst and duo nebs for her wheezing f/u sputum culture and urine culture. CXR: Mild worsening of infiltrate on right. patient is still rotated to right. c/w agressive suctioning -- TDRF No use of home supplemental O2 Protective tracheostomy tube; Shiley cuffless #4 * Tube was placed secondary to difficult extubation in September 2009 * Tube is changed regularly every 3 months Laterality: left Lung location: lower lobe of lung Pneumonia type: due to unspecified organism Qualified Code(s): J18.9 - Pneumonia, unspecified organism (2) Hypoxia: No use of home supplemental O2 Protective tracheostomy tube; Shiley #4 * Tube was placed secondary to difficult extubation in September 2009 * Tube is changed regularly No tobacco abuse history or other pulmonary disease other than ARDS (3) Tracheostomy tube present: Placed in 2008 secondary to difficult extubation Currently Shiley cuffless #4 Mother Tali, IMMUNOLOGY SPECIALIST, changes, cleans, manages the tracheostomy tube at home Patient follows in [place] for regular maintenance by ENT (4) DVT prophylaxis: Lovenox 40 mg subcu daily History of left upper extremity 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 No acute distress, no adverse events overnight. Parents of the patient at bedside. States that his mental status has come back to normal baseline. Review of Systems Review of Systems: Unobtainable due to mental health condition Physical Exam Physical Exam: Constitutional: No acute distress HEENT: EOMI, PERRLA, size [address] Respiratory system: Decreased air entry bilaterally, positive bilateral lower lobe crackles, expiratory wheeze, +ve rhonchi CVS: S1-S2 positive, no murmurs or gallops Abdomen: Soft, nontender, nondistended, positive bowel sounds x4, positive PEG tube Extremities: +2 pulses bilaterally radialis/ dorsalis pedis, no cyanosis, no ed wendi Neuro: Awake and alert Psych: Normal mood and affect G/U: Suprapubic Larson Skin: no rashes, warm and dry Lymphatic: no cervical or axillary lymphadenopathy Results & Data ([facility]) Vital Signs (Past 12 Hours) Vital Signs Temp Pulse Pulse Pulse Resp BP BP 12/25/19 16:48 36.9 C 63 20 129/81 12/25/19 16:00 60 58 L 18 12/25/19 15:15 36.4 C L 62 18 124/85 12/25/19 11:13 77 18 12/25/19 08:00 60 12/25/19 07:47 36.8 C 72 19 130/80 12/25/19 07:12 95 H 18 Pulse Ox 12/25/19 16:48 98 12/25/19 16:00 97 12/25/19 15:15 96 12/25/19 11:13 95 12/25/19 08:00 12/25/19 07:47 92 12/25/19 07:12 93 12/25/19 05:58 12/25/19 05:58 PG Care Time/CCT Total # of Minutes Spent Total Time Spent with Patient: Total time spent is greater than 50% in coordination of care (as documented) at patient's floor/unit and/or counseling patient: Coding Level of Care Code 68623 Subseq Hosp Care Lvl 3 Diagnoses Pneumonia J18.9 Laterality: left Lung location: lower lobe of lung Pneumonia type: due to unspecified organism Hypoxia R09.02 Tracheostomy tube present Z93.0 DVT prophylaxis Z29.9
[2019-12-26] MEDS: PIPERACILLIN/TAZOBACTAM 4.5 GM in DEXTROSE 5% 100 ML IV SCH ×3 (06:18→22:59)
[2019-12-26] MEDS: ALBUT/IPRATROP 3MG/0.5MG NEB 3 ML VIAL NEB SCH ×4 (07:14→19:18)
[2019-12-26] MEDS: ACETYLCYSTEINE 20% INHAL SOLN 4ML ***DISPENSED BY RESP. INH SCH ×2 (07:14→19:24)
--- NOTE | 2019-12-26 07:22 | XRay Report ---
XR chest 1V portable HISTORY: Shortness of breath. Follow-up. COMPARISON: Chest 12/25/2019. FINDINGS: Tracheostomy tube is unchanged in position. No pneumothorax. There are low lung volumes. Bi basilar densities and trace bilateral pleural effusions persist. There is chronic elevation the right hemidiaphragm. The heart remains mildly enlarged. There is mild interstitial pulmonary edema. IMPRESSION: No change in the mild interstitial pulmonary edema, bibasilar densities, and trace bilateral pleural effusions. ACT 112: Negative or not required by law. Electronically signed by: Guzman Jansen M.D. 12/26/2019 7:21 AM
[2019-12-26 07:53] LABS: Basophils # (auto) 0.02 K/uL (0-0.2); Basophils % (auto) 0.5 %; Eosinophils # (auto) 0.06 K/uL (0-0.5); Eosinophils % (auto) 1.6 %; Hematocrit (blood only) 33.3 % (37-47); Hemoglobin 11.4 g/dL (12.0-16.0); Immature Granulocytes # (auto) 0.01 K/uL (0.00-0.02); Immature Granulocytes % (auto) 0.3 %; Lymphocytes # (auto) 1.21 K/uL (1.2-3.4); Lymphocytes % (auto) 33.2 %; Mean Corpuscular Hemoglobin 32.7 pg (25-34); Mean Corpuscular Hgb Conc 34.2 g/dL (32-36); Mean Corpuscular Volume 95.4 fL (80-100); Mean Platelet Volume 9.7 fL (7.4-10.4); Monocytes # (auto) 0.51 K/uL (0.11-0.59); Neutrophils # (auto) 1.84 K/uL (1.4-6.5); Neutrophils % (auto) 50.4 %; Platelet Count 152 K/uL (130-400); RDW Coefficient of Variation 15.4 % (11.5-14.5); RDW Standard Deviation 53.7 fL (36.4-46.3); Red Blood Count 3.49 M/uL (4.2-5.4); White Blood Count 3.65 K/uL (4.8-10.8)
[2019-12-26 08:24] LABS: BUN Creatinine Ratio 24.5 (10-20); Calcium 9.5 mg/dl (8.5-10.1); Creatinine Clr Calc Pharmacy 152.3 ml/min; Est GFR (African American) 137.3; Est GFR (Non-African American) 118.5
[2019-12-26] MEDS: guaiFENesin 600 MG TABCR PO SCH (08:28)
[2019-12-26] MEDS: DOCUSATE SODIUM 100 MG CAP PO SCH (08:28)
[2019-12-26] MEDS: carBAMazepine 200 MG TABLET PO SCH ×2 (08:28→16:54)
[2019-12-26] MEDS: MULTIVITAMIN TAB PO SCH (08:29)
[2019-12-26] MEDS: DIVALPROEX SODIUM SPRINKLE 125 MG CAP PO SCH ×2 (08:29→16:55)
[2019-12-26] MEDS: lamoTRIgine 100 MG TAB PO SCH ×2 (08:30→16:54)
[2019-12-26] MEDS: MAGNESIUM OXIDE 400 MG TAB PO SCH (08:30)
[2019-12-26] MEDS: ENOXAPARIN INJ 40 MG/0.4 ML SYR SQ SCH (08:30)
[2019-12-26] MEDS: diazePAM 5 MG TABLET PO SCH ×2 (08:34→16:53)
--- NOTE | 2019-12-26 09:36 | Pharmacy Report ---
Pharmacy Abx Dose Short Note - Date of Service December 26, 2019 - Assessment & Plan Assessment * 49 year old F receiving vancomycin/zosyn for treatment of pneumonia * Patient with MRSA history and MRSA nasal swab positive * Given paraplegia, current CrCL likely overestimating true function Vancomycin * Random levels have trended down, now 18.7 mcg/mL this AM. Patient therefore clearing vancomycin adequately, albeit slower than initially anticipated * Will resume scheduled vancomycin at reduced dose compared to previous * Early trough prior to 3rd dose of new regimen to ensure level does not become supratherapeutic again Plan * Vancomycin 1250 mg IV q16h * Trough 12/27 @ 1730 Pharmacy will continue to follow and will adjust dose/frequency as necessary. Thank you.
[2019-12-26] MEDS: LEVOTHYROXINE SODIUM 88 MCG TABLET PO SCH (10:32)
[2019-12-26] MEDS: VANCOMYCIN HCL 1,250 MG in SODIUM CHLORIDE 0.9% 250 ML IV SCH (10:33)
--- NOTE | 2019-12-26 17:10 | Hospitalist Progress Note ---
Date of Service December 26, 2019 Assessment & Plan (1) PNA (pneumonia): 49-year-old female was admitted on 22 December 2019 for hypoxia preceded by 5 days of cold symptoms and congestion. Left lower lobe pneumonia, hypoxia, history of tracheostomy: SpO2 87% on arrival. Negative influenza. Procalcitonin negative. Nasal MRSA positive. BCx NGTD. Sputum culture notes kacey albicans. echo noted EF 60- 65%, otherwise normal. - CXR shows R > L pleural effusions with bibasilar opacities and a slightly progressive worsening of the right upper lobe airspace opacity. Unchanged on CXR. - Given ceftriaxone and azithromycin in ED. switched to Zosyn and van comycin due to concerns for HAP / aspiration pneumonia. See pulmonology notes. They recommended chest PT and aggressive suctioning along with Mucomyst and duo nebs. Ongoing trach care. Presently is on 6 L oxygen for trach collar. Loose stools: Patient's mother notes that the patient has had about three very watery loose stools in the past 24 hours. - Has received many antibiotics, so will send a C. difficile. Otherwise monitor for now. UTI, chronic indwelling Larson catheter, neurogenic bladder: Nitrates on initial UA. Urine culture likely skin savanna. Chronic anemia: Admit hemoglobin 11.1 (around baseline). Presently stable, monitoring. Chronic hyponatremia: Follows with Dr. Torres (nephrology). Gets free water flushes in the gastric tube to follow meds in the morning. Admit sodium 125, up to 137 now. Presently off NS IVF. Random cortisol was 7 (i.e. not that high). May have some element of adrenal insufficiency. - Could consider dose of steroids if any worsening / hypotension. Ongoing medical issues: - Chronic hypothermia: Averages around temp 36.4. Plans to see endocrinology in the upcoming weeks. - Hypothyroidism: Admit TSH normal. Continue home levothyroxine. - Seizure disorder: Continue with home Tegretol, diazepam, divalproex, Lamictal. Is on brand-name medication. - Paraplegia: Result of a seizure causing a T2-T3 injury from hematoma. - Prior left upper extremity DVT secondary to subclavian catheter placement. - Intellectual disability: Nonverbal but follows commands and is interactive. - Hypertension. Possible ovarian cancer. Asthmatic bronchitis. Code status: Full code. Diet: Regular diet by mouth. G-tube for meds and flushes only. Of note, patient chews her pills. DVT prophy: Lovenox. Does have a history of IVC filter. PT/OT: Deferred. Disbo: Admit to PCU telemetry. Parents often at bedside and are very involved in her care. (2) Hypoxia: (3) Tracheostomy tube present: (4) Loose stools: (5) UTI (urinary tract infection): (6) Chronic indwelling Larson catheter: (7) Neurogenic bladder: (8) Chronic anemia: (9) Hyponatremia: (10) Hypothermia: (11) Hypothyroid: (12) Seizure disorder: (13) Paraplegia: (14) History of DVT (deep vein thrombosis): (15) Intellectual disability: Supervising Physician Co-Signing Physician Notes Patient seen and examined with PGY-3 Dr. Kaiser. Agree with history, exam findings, assessment and plan of care as outlined. In brief, Nikia is a 49 year old female with history of ID, DVT, chronic hyponatremia and hypothyroidism with trach and PEG admitted with pneumonia. Overall, seems to be improving. A bit more energy than prior days. Mom does notice that mucus has been a bit thicker today than in prior days. Also having very loose stools. 4L on trach collar. pulm exam significant for ronchi at the bilateral bases and wheezes throughout. 1. Pneumonia, continue vanc and zosyn, chest PT, suction. Sputum culture growing kacey. Appreciate pulm recommendations on whether to add diflucan at this time. 2. chronic hyponatremia. sodium actually in a normal range right now. Will continue to keep an eye on this. 3. diarrhea. check c diff. likely antibiotic related. Dispo: pending clinical improvement. Subjective Found patient sitting in her bedside wheelchair earlier this morning listening to music. She seems quite happy. Spoke with her parents at bedside. They stated overall she seems like she is doing well, perhaps with more energy today. They did note that her mucus seemed a little bit thicker than yesterday. No noted new respiratory issues. However, mother did note that she had about three very loose watery bowel movements over the past 24 hours. Review of Systems Review of Systems: Unable to obtain ROS due to patient's mental status. However, parental ROS as noted above. Physical Exam Physical Exam: General Appearance: Awake, alert, overall appears comfortable, does not appear in acute distress. CV: +S1S2 RRR, no murmur. Pulm: Tracheostomy tube in place with trach collar. Rhonchi at the bilateral bases and generalized wheezing throughout. Abdomen: +BS, soft, non-tender, non-distended. Suprapubic catheter and PEG tube in place. Neuro: Paraplegic. Smiles, will nod her head to some questions or comments, but does not speak. Results & Data ([facility]) Vital Signs (Past 12 Hours) Vital Signs Temp Pulse Pulse Pulse Resp BP BP 12/26/19 15:33 36.5 C 58 L 18 134/80 12/26/19 15:04 57 L 20 12/26/19 11:36 59 L 20 12/26/19 11:21 36.8 C 67 18 120/81 12/26/19 08:06 36.5 C 56 L 16 132/69 12/26/19 08:00 55 L 12/26/19 07:22 58 L 18 Pulse Ox 12/26/19 15:33 12/26/19 15:04 96 12/26/19 11:36 93 12/26/19 11:21 98 12/26/19 08:06 98 12/26/19 08:00 12/26/19 07:22 97 Laboratory Results 12/26/19 12/26/19 12/26/19 Range/Units 07:41 07:35 07:35 WBC 3.65 L (4.8-10.8) K/uL RBC 3.49 L (4.2-5.4) M/uL Hgb 11.4 L (12.0-16.0) g/dL Hct 33.3 L (37-47) % MCV 95.4 (80-100) fL MCH 32.7 (25-34) pg MCHC 34.2 (32-36) g/dL RDW Std Deviation 53.7 H (36.4-46.3) fL RDW Coeff of Nazanin 15.4 H (11.5-14.5) % Plt Count 152 (130-400) K/uL MPV 9.7 (7.4-10.4) fL Immature Gran % (Auto) 0.3 % Neut % (Auto) 50.4 % Lymph % (Auto) 33.2 % [place] % (Auto) 14.0 % Eos % (Auto) 1.6 % Baso % (Auto) 0.5 % Immature Gran # (Auto) 0.01 (0.00-0.02) K/uL Neut # (Auto) 1.84 (1.4-6.5) K/uL Lymph # (Auto) 1.21 (1.2-3.4) K/uL [place] # (Auto) 0.51 (0.11-0.59) K/uL Eos # (Auto) 0.06 (0-0.5) K/uL Baso # (Auto) 0.02 (0-0.2) K/uL Sodium (136-145) mmol/L Potassium 4.5 (3.5-5.1) mmol/L Chloride (98-107) mmol/L Carbon Dioxide (21-32) mmol/L Anion Gap (3-11) BUN (7-18) mg/dl Creatinine (0.6-1.2) mg/dl Est Cr Clr Drug Dosing ml/min Est GFR ( Amer) Est GFR (Non-Af Amer) BUN/Creatinine Ratio (10-20) Glucose (70-99) mg/dl Calcium (8.5-10.1) mg/dl Random Vancomycin 18.7 mcg/ml 12/26/19 Range/Units 07:35 WBC (4.8-10.8) K/uL RBC (4.2-5.4) M/uL Hgb (12.0-16.0) g/dL Hct (37-47) % MCV (80-100) fL MCH (25-34) pg MCHC (32-36) g/dL RDW Std Deviation (36.4-46.3) fL RDW Coeff of Nazanin (11.5-14.5) % Plt Count (130-400) K/uL MPV (7.4-10.4) fL Immature Gran % (Auto) % Neut % (Auto) % Lymph % (Auto) % [place] % (Auto) % Eos % (Auto) % Baso % (Auto) % Immature Gran # (Auto) (0.00-0.02) K/uL Neut # (Auto) (1.4-6.5) K/uL Lymph # (Auto) (1.2-3.4) K/uL [place] # (Auto) (0.11-0.59) K/uL Eos # (Auto) (0-0.5) K/uL Baso # (Auto) (0-0.2) K/uL Sodium 137 (136-145) mmol/L Potassium (3.5-5.1) mmol/L Chloride 105 (98-107) mmol/L Carbon Dioxide 29 (21-32) mmol/L Anion Gap 4.0 (3-11) BUN 11 (7-18) mg/dl Creatinine 0.46 L (0.6-1.2) mg/dl Est Cr Clr Drug Dosing 152.3 ml/min Est GFR ( Amer) 137.3 Est GFR (Non-Af Amer) 118.5 BUN/Creatinine Ratio 24.5 H (10-20) Glucose 83 (70-99) mg/dl Calcium 9.5 (8.5-10.1) mg/dl Random Vancomycin mcg/ml Medications Administered Current Inpatient Medications Acetylcysteine (Mucomyst 20%) 5 ml INH Q12R [facility] Stop: 01/23/20 13:29 Last Admin: 12/26/19 07:14 Dose: 5 ml Documented by: Albuterol (Duoneb) 3 ml NEB QIDR [facility] Stop: 01/23/20 14:59 Last Admin: 12/26/19 15:04 Dose: 3 ml Documented by: Carbamazepine (Tegretol) 200 mg PO QAM [facility] Stop: 01/22/20 08:59 Last Admin: 12/26/19 08:28 Dose: 200 mg Documented by: Carbamazepine (Tegretol) 400 mg PO QDD [facility] Stop: 01/22/20 18:14 Last Admin: 12/26/19 16:54 Dose: 400 mg Documented by: Diazepam (Valium) 5 mg PO BIDM [facility] Stop: 01/22/20 17:44 Last Admin: 12/26/19 16:53 Dose: 5 mg Documented by: Divalproex Sodium (Depakote Sprinkle) 625 mg PO BIDM [facility] Stop: 01/22/20 17:44 Last Admin: 12/26/19 16:55 Dose: 625 mg Documented by: Docusate Sodium (Colace) 100 mg PO QAM [facility] Stop: 01/22/20 08:59 Last Admin: 12/26/19 08:28 Dose: 100 mg Documented by: Enoxaparin Sodium (Lovenox) 40 mg SQ Q24H [facility] Stop: 01/21/20 23:14 Last Admin: 12/26/19 08:30 Dose: 40 mg Documented by: Guaifenesin (Mucinex) 600 mg PO HS PRN PRN Reason: Congestion Stop: 01/22/20 00:01 Guaifenesin (Mucinex) 600 mg PO QAM [facility] Stop: 01/22/20 08:59 Last Admin: 12/26/19 08:28 Dose: 600 mg Documented by: Piperacillin Sod/Tazobactam (Sod 4.5 gm/ Dextrose) 120 mls @ 30 mls/hr IV Q8H [facility]; Protocol Stop: 12/30/19 05:59 Last Admin: 12/26/19 14:39 Dose: 30 mls/hr Documented by: Vancomycin HCl 1,250 mg/ (Sodium Chloride) 275 mls @ 125 mls/hr IV Q16H [facility]; Protocol Stop: 12/30/19 01:19 Last Infusion: 12/26/19 12:45 Dose: Infused Documented by: Lamotrigine (Lamictal) 100 mg PO BIDM [facility] Stop: 01/22/20 07:59 Last Admin: 12/26/19 16:54 Dose: 100 mg Documented by: Levothyroxine Sodium (Synthroid) 88 mcg PO DAILY@1000 [facility]; Protocol Stop: 01/23/20 10:59 Last Admin: 12/26/19 10:32 Dose: 88 mcg Documented by: Magnesium Oxide (Mag-Ox) 400 mg PO Q48H [facility] Stop: 01/22/20 08:59 Last Admin: 12/25/19 07:36 Dose: 400 mg Documented by: Magnesium Oxide (Mag-Ox) 200 mg PO Q48H [facility] Stop: 01/23/20 08:59 Last Admin: 12/26/19 08:30 Dose: 200 mg Documented by: Miscellaneous Information (Consult) 1 ea N/A UD PRN PRN Reason: Consult Stop: 01/21/20 22:38 Miscellaneous Information (Consult) 1 ea N/A UD PRN PRN Reason: Consult Stop: 01/21/20 22:38 Multivitamins (Multivitamin Tab) 1 tab PO QA [facility] Stop: 01/22/20 08:59 Last Admin: 12/26/19 08:29 Dose: 1 tab Documented by: Ondansetron HCl (Zofran) 4 mg IV Q6H PRN PRN Reason: Nausea Stop: 01/22/20 00:01 Polyethylene Glycol (Miralax Powder Packet) 17 gm PO DAILY PRN PRN Reason: Constipation Stop: 01/22/20 00:01 Pseudoephedrine HCl (Suphedrine Sinus Congestion) 30 mg PO Q4H PRN PRN Reason: nasal congestion Stop: 01/22/20 19:29 Last Admin: 12/24/19 07:55 Dose: 30 mg Documented by: Resident Activity Tracking Resident Involvement: Resident Care Provided Care Provided: Adult Hospital Medicine (1) UTI (urinary tract infection) Hematuria presence: with hematuria Urinary tract infection type: site unspecified Qualified Code(s): N39.0 - Urinary tract infection, site not specified; R31.9 - Hematuria, unspecified (2) Hypothermia Encounter type: initial encounter Qualified Code(s): T68.XXXA - Hypothermia, initial encounter
--- NOTE | 2019-12-26 18:25 | Pulmonology Progress Note ---
Date of Service December 26, 2019 Assessment & Plan (1) Pneumonia: -- Acute hypoxic respiratory failure Patient takes everything orally and only uses the gastric tube for medications and free water flush Mother states that very seldom does the patient aspirate and due to full sup ervision they are able to suction from the tracheostomy tube before aspiration. MRSA nasal screen is positive by swab Negative for influenza A or B Currently oxygenating well with trach collar, keep oxygen greater than 92% Continue with antibiotics. Chest PT and aggressive suctioning involved along with Mucomyst and duo nebs for her wheezing Sputum culture growing Marisabel albicans is most likely normal savanna patient is not immunocompromised does not need treatment for it. CXR: Good technique today compared to previous x-rays, mild improvement in infiltrates. c/w agressive suctioning Patient will benefit from chest vest therapy as patient has rhonchi and patient has very weak cough given to her spinal injury history.. Being treated patient is unable to use the flutter valve. We will get social work involved. -- TDRF No use of home supplemental O2 Protective tracheostomy tube; Shiley cuffless #4 * Tube was placed secondary to difficult extubation in September 2009 * Tube is changed regularly every 3 months Laterality: left Lung location: lower lobe of lung Pneumonia type: due to unspecified organism Qualified Code(s): J18.9 - Pneumonia, unspecified organism Subjective Patient seen and examined at bedside. No acute distress, no adverse events overnight. Patient using CoughAssist. Parents present at bedside. Review of Systems Review of Systems: Unobtainable due to mental health condition Physical Exam Physical Exam: Constitutional: No acute distress HEENT: EOMI, PERRLA, size [address] Respiratory system: Decreased air entry bilaterally, positive bilateral lower lobe crackles, positive expiratory wheeze, +ve rhonchi CVS: S1-S2 positive, no murmurs or gallops Abdomen: Soft, nontender, nondistended, positive bowel sounds x4, positive PEG tube Extremities: +2 pulses bilaterally radialis/ dorsalis pedis, no cyanosis, no edema Neuro: Awake and alert Psych: Normal mood and affect G/U: Suprapubic Larson Skin: no rashes, warm and dry Lymphatic: no cervical or axillary lymphadenopathy Results & Data ([facility]) Vital Signs (Past 12 Hours) Vital Signs Temp Pulse Pulse Pulse Resp BP BP 12/26/19 17:00 55 L 01/31/20 15:33 36.5 C 58 L 18 134/80 12/26/19 15:04 57 L 20 12/26/19 11:36 59 L 20 12/26/19 11:21 36.8 C 67 18 120/81 12/26/19 08:06 36.5 C 56 L 16 132/69 12/26/19 08:00 55 L 12/26/19 07:22 58 L 18 Pulse Ox 12/26/19 17:00 12/26/19 15:33 12/26/19 15:04 96 12/26/19 11:36 93 12/26/19 11:21 98 12/26/19 08:06 98 12/26/19 08:00 12/26/19 07:22 97 12/26/19 07:35 12/26/19 07:41 PG Care Time/CCT Total # of Minutes Spent Total Time Spent with Patient: Total time spent is greater than 50% in coordination of care (as documented) at patient's floor/unit and/or counseling patient: Coding Level of Care Code 05617 Subseq Hosp Care Lvl 3 Diagnoses Pneumonia J18.9 Laterality: left Lung location: lower lobe of lung Pneumonia type: due to unspecified organism
[2019-12-26 20:46] LABS: Cdiff Antigen Positive; Cdiff Toxin A+B Negative Cdiff Toxin (Negative)
[2019-12-27] MEDS: VANCOMYCIN HCL 1,250 MG in SODIUM CHLORIDE 0.9% 250 ML IV SCH (02:26)
[2019-12-27] MEDS: PIPERACILLIN/TAZOBACTAM 4.5 GM in DEXTROSE 5% 100 ML IV SCH (05:20)
[2019-12-27] MEDS: ALBUT/IPRATROP 3MG/0.5MG NEB 3 ML VIAL NEB SCH ×4 (06:53→19:17)
[2019-12-27] MEDS: ACETYLCYSTEINE 20% INHAL SOLN 4ML ***DISPENSED BY RESP. INH SCH ×2 (06:53→19:17)
[2019-12-27] MEDS: guaiFENesin 600 MG TABCR PO SCH (08:19)
[2019-12-27] MEDS: lamoTRIgine 100 MG TAB PO SCH ×2 (08:19→16:01)
[2019-12-27] MEDS: DIVALPROEX SODIUM SPRINKLE 125 MG CAP PO SCH ×2 (08:20→16:02)
[2019-12-27] MEDS: DOCUSATE SODIUM 100 MG CAP PO SCH (08:20)
[2019-12-27] MEDS: ENOXAPARIN INJ 40 MG/0.4 ML SYR SQ SCH (08:20)
[2019-12-27] MEDS: MULTIVITAMIN TAB PO SCH (08:20)
[2019-12-27 08:21] LABS: BUN Creatinine Ratio 28.9 (10-20); Calcium 9.2 mg/dl (8.5-10.1); Creatinine Clr Calc Pharmacy 159.7 ml/min; Est GFR (African American) 139.3; Est GFR (Non-African American) 120.2; Potassium 4.7 mmol/L (3.5-5.1)
[2019-12-27] MEDS: MAGNESIUM OXIDE 400 MG TAB PO SCH (08:21)
[2019-12-27] MEDS: carBAMazepine 200 MG TABLET PO SCH ×2 (08:25→16:31)
[2019-12-27] MEDS: diazePAM 5 MG TABLET PO SCH ×2 (08:28→16:02)
--- NOTE | 2019-12-27 08:32 | XRay Report ---
XR chest 1V portable HISTORY: Shortness of breath. Follow-up. COMPARISON: Chest 12/26/2019. FINDINGS: Interval improvement with near complete resolution of the mild interstitial pulmonary edema . Bibasilar densities and trace bilateral pleural effusions have also improved. No pneumothorax. Low lung volumes. A tracheostomy tube is again noted. The heart is normal in size. IMPRESSION: Interval improvement with near complete resolution of the mild interstitial pulmonary edema and bibas ilar densities. ACT 112: Negative or not required by law. Electronically signed by: Guzman Jansen M.D. 12/27/2019 8:31 AM
[2019-12-27 09:06] LABS: Basophils # (auto) 0.02 K/uL (0-0.2); Basophils % (auto) 0.5 %; Eosinophils # (auto) 0.13 K/uL (0-0.5); Eosinophils % (auto) 3.4 %; Hematocrit (blood only) 32.3 % (37-47); Hemoglobin 11.1 g/dL (12.0-16.0); Immature Granulocytes # (auto) 0.01 K/uL (0.00-0.02); Immature Granulocytes % (auto) 0.3 %; Lymphocytes # (auto) 0.93 K/uL (1.2-3.4); Lymphocytes % (auto) 24.3 %; Mean Corpuscular Hemoglobin 32.8 pg (25-34); Mean Corpuscular Volume 95.6 fL (80-100); Monocytes # (auto) 0.43 K/uL (0.11-0.59); Monocytes % (auto) 11.3 %; Neutrophils % (auto) 60.2 %; Platelet Count 152 K/uL (130-400); RDW Coefficient of Variation 15.1 % (11.5-14.5); RDW Standard Deviation 52.8 fL (36.4-46.3); Red Blood Count 3.38 M/uL (4.2-5.4); White Blood Count 3.82 K/uL (4.8-10.8)
[2019-12-27 09:16] LABS: Mean Corpuscular Hgb Conc 34.4 g/dL (32-36)
[2019-12-27] MEDS: LEVOTHYROXINE SODIUM 88 MCG TABLET PO SCH (10:07)
--- NOTE | 2019-12-27 10:12 | Pulmonology Progress Note ---
Date of Service December 27, 2019 Assessment & Plan (1) Pneumonia: -- Acute hypoxic respiratory failure Patient takes everything orally and only uses the gastric tube for medications and free water flush Mother states that very seldom does the patient aspirate and due to full sup ervision they are able to suction from the tracheostomy tube before aspiration. MRSA nasal screen is positive by swab Negative for influenza A or B Currently oxygenating well with trach collar, keep oxygen greater than 92% Continue with antibiotics. Chest PT and aggressive suctioning involved along with Mucomyst and duo nebs for her wheezing Sputum culture growing Marisabel albicans is most likely normal savanna patient is not immunocompromised does not need treatment for it. c/w aggressive suctioning Patient will benefit from chest vest therapy as patient has rhonchi and patient has very weak cough given to her spinal injury history.. Being treated patient is unable to use the flutter valve. From pulmonary perspective patient doing much better, chest x-ray from today shows resolving infiltrates. IV antibiotics can be transitioned to azithromycin or levofloxacin for total 7 to 10 days (QTc 399). Patient would benefit from Mucomyst inhaled therapy along with albuterol nebulized therapy as an outpatient. -- TDRF No use of home supplemental O2 Protective tracheostomy tube; Shiley cuffless #4 * Tube was placed secondary to difficult extubation in September 2009 * Tube is changed regularly every 3 months No further recommendations from pulmonary perspective. Will sign off. Recall if needed. Please note the above document was generated using voice recognition software. It may contain grammatical, syntax or spelling errors. Laterality: left Lung location: lower lobe of lung Pneumonia type: due to unspecified organism Qualified Code(s): J18.9 - Pneumonia, unspecified organism Subjective Patient seen and examined at bedside. No acute distress, no adverse events overnight. Mother at bedside at the time of examination. Patient looking more alert. Review of Systems Review of Systems: Unobtainable due to mental health condition Physical Exam Physical Exam: Constitutional: No acute distress HEENT: EOMI, PERRLA, size [address] Respiratory system: Decreased air entry bilaterally, positive bilateral lower lobe crackles (improved than before), mild expiratory wheeze, +ve rhonchi CVS: S1-S2 positive, no murmurs or gallops Abdomen: Soft, nontender, nondistended, positive bowel sounds x4, positive PEG tube Extremities: +2 pulses bilaterally radialis/ dorsalis pedis, no cyanosis, no edema Neuro: Awake and alert Psych: Unable to access G/U: Suprapubic Larson Skin: no rashes, warm and dry Lymphatic: no cervical or axillary lymphadenopathy Results & Data ([facility]) Vital Signs (Past 12 Hours) Vital Signs Temp Pulse Pulse Pulse Resp BP Pulse Ox 12/27/19 07:00 57 L 18 93 12/27/19 04:06 36.6 C 64 18 139/79 97 12/26/19 23:00 36.3 C L 68 16 140/93 98 12/26/19 22:19 53 L 12/27/19 08:49 12/27/19 07:48 PG Care Time/CCT Total # of Minutes Spent Total Time Spent with Patient: Total time spent is greater than 50% in coordination of care (as documented) at patient's floor/unit and/or counseling patient: Coding Level of Care Code 93484 Subseq Hosp Care Lvl 3 Diagnoses Pneumonia J18.9 Laterality: left Lung location: lower lobe of lung Pneumonia type: due to unspecified organism
[2019-12-27] MEDS: levoFLOXacin 750 MG TAB PO SCH (12:04)
--- NOTE | 2019-12-27 14:13 | Hospitalist Progress Note ---
Date of Service December 27, 2019 Assessment & Plan (1) PNA (pneumonia): 49-year-old female was admitted on 22 December 2019 for hypoxia preceded by 5 days of cold symptoms and congestion. Left lower lobe pneumonia, hypoxia, history of tracheostomy SpO2 87% on arrival. Negative influenza. Procalcitonin negative. Nasal MRSA positive. BCx NGTD. Sputum culture notes kacey albicans. echo noted EF 60-65%, otherwise normal. - CXR shows R > L pleural effusions with bibasilar opacities and a slightly progressive worsening of the right upper lobe airspace opacity. Unchanged on CXR. - Given ceftriaxone and azithromycin in ED. switched to Zosyn and vancomycin due to concerns for HAP / aspiration pneumonia. - Pulmonology signing off with the following recommendationsswitching to p.o. antibiotics, continue neb treatments, Mucomyst and flutter vest at the time of discharge. - Switching today to PO Levaquin, continue for a total of 7 days of Abx Try weaning oxygen today Loose stools Diarrhea is improved today Patient is C. difficile gene positive, but toxin negative. No treatment for C. difficile colitis, but the patient remains on precautions UTI Chronic indwelling Larson catheter, neurogenic bladder. Urine culture likely skin savanna. Chronic anemia Presently stable, monitoring. Chronic hyponatremia Improved today Follows with Dr. Torres (nephrology). Gets free water flushes in the gastric tube to follow meds in the morning. Random cortisol was 7 (i.e. not that high). May have some element of adrenal insufficiency. - Could consider dose of steroids if any worsening / hypotension. Ongoing medical issues: - Chronic hypothermia: Averages around temp 36.4. Plans to see endocrinology in the upcoming weeks. - Hypothyroidism: Admit TSH normal. Continue home levothyroxine. - Seizure disorder: Continue with home Tegretol, diazepam, divalproex, Lamictal. Is on brand-name medication. - Paraplegia: Result of a seizure causing a T2-T3 injury from hematoma. - Prior left upper extremity DVT secondary to subclavian catheter placement. - Intellectual disability: Nonverbal but follows commands and is interactive. - Hypertension. Possible ovarian cancer. Asthmatic bronchitis. Code status: Full code. Diet: Regular diet by mouth. G-tube for meds and flushes only. Of note, patient chews her pills. DVT prophy: Lovenox. Does have a history of IVC filter. PT/OT: Deferred. Disbo: Admit to PCU telemetry. Parents often at bedside and are very involved in her care. (2) Hypoxia: (3) Tracheostomy tube present: (4) Loose stools: (5) UTI (urinary tract infection): (6) Chronic indwelling Larson catheter: (7) Neurogenic bladder: (8) Chronic anemia: (9) Hyponatremia: (10) Hypothermia: (11) Hypothyroid: (12) Seizure disorder: (13) Paraplegia: (14) History of DVT (deep vein thrombosis): (15) Intellectual disability: Supervising Physician Co-Signing Physician Notes Patient seen and examined with PGY-3 Dr. Jacky Garza. Agree with history, exam findings, assessment and plan of care as outlined. In brief, Nikia is a 49 year old female with history of ID, DVT, chronic hyponatremia and hypothyroidism with trach and PEG admitted with pneumonia. Overall, seems to be improving. Loose stools are improving. C. diff toxin negative. 6L on trach collar this morning. pulm exam significant for diminished breath sounds at the bilateral bases and wheezes throughout. 1. Pneumonia, switch to levaquin, chest PT, suction. Sputum culture with normal savanna. Will attempt to wean O2 as she does not have supplemental O2 requirement at home. 2. chronic hyponatremia. sodium actually in a normal range right now. Will continue to keep an eye on this. 3. diarrhea. C. diff toxin neg. Improving. Dispo: If she continues to do well, anticipate possible discharge tomorrow. Subjective Mother is presents and reports less diarrhea. She states that she is breathing comfortably and is coughing less. Review of Systems Review of Systems: Unobtainable due to mental health condition Physical Exam Constitutional: WD/WN, vitals as above Eyes: PERRL, conjunctivae normal, anicteric sclerae ENMT: Ears: no external ear abnormality Nose: no external nose abnormality trachea collar present Respiratory: normal respiratory effort; no respiratory distress, no labored breathing, no retractions and does not use accessory muscles expiratory wheezes throughout Cardiovascular: RRR, no murmur, no edema Gastrointestinal (Abdomen): normal bowel sounds, soft, nontender, no hepatosplenomegaly Musculoskeletal: no cyanosis or clubbing, extremities motor strength 5/5 Skin: no rashes, warm and dry Psychiatric: Orientation: alert Results & Data ([facility]) Vital Signs (Past 12 Hours) Vital Signs Temp Pulse Pulse Resp BP BP Pulse Ox 12/27/19 11:31 36.2 C L 64 20 155/81 H 95 12/27/19 11:17 63 18 94 12/27/19 07:00 57 L 18 93 12/27/19 04:06 36.6 C 64 18 139/79 97 Resident Activity Tracking Resident Involvement: Resident Care Provided Care Provided: Adult Hospital Medicine (1) UTI (urinary tract infection) Hematuria presence: with hematuria Urinary tract infection type: site u nspecified Qualified Code(s): N39.0 - Urinary tract infection, site not specified; R31.9 - Hematuria, unspecified (2) Hypothermia Encounter type: initial encounter Qualified Code(s): T68.XXXA - Hypothermia, initial encounter
[2019-12-27] MEDS ORDERED: VANCOMYCIN TROUGH ONE (17:30)
[2019-12-28] MEDS ORDERED: carBAMazepine 200 MG TABLET PO STA (00:46)
[2019-12-28 06:38] LABS: Basophils # (auto) 0.01 K/uL (0-0.2); Basophils % (auto) 0.2 %; Eosinophils # (auto) 0.06 K/uL (0-0.5); Eosinophils % (auto) 1.1 %; Hematocrit (blood only) 34.4 % (37-47); Immature Granulocytes # (auto) 0.08 K/uL (0.00-0.02); Immature Granulocytes % (auto) 1.4 %; Lymphocytes # (auto) 1.22 K/uL (1.2-3.4); Lymphocytes % (auto) 21.7 %; Mean Corpuscular Hemoglobin 32.4 pg (25-34); Mean Platelet Volume 8.7 fL (7.4-10.4); Monocytes # (auto) 0.71 K/uL (0.11-0.59); Monocytes % (auto) 12.6 %; Neutrophils # (auto) 3.55 K/uL (1.4-6.5); Nucleated RBC # (auto) 0.02 K/uL (0-0); Nucleated RBC % (auto) 0.4 %; Platelet Count 174 K/uL (130-400); RDW Coefficient of Variation 14.9 % (11.5-14.5); RDW Standard Deviation 50.9 fL (36.4-46.3); White Blood Count 5.63 K/uL (4.8-10.8)
[2019-12-28 06:41] LABS: Mean Corpuscular Hgb Conc 34.9 g/dL (32-36)
[2019-12-28 06:42] LABS: Carbamazepine Tegretol 12.4 mcg/ml (4-12)
[2019-12-28] MEDS: ACETYLCYSTEINE 20% INHAL SOLN 4ML ***DISPENSED BY RESP. INH SCH ×2 (06:53→19:09)
[2019-12-28] MEDS: ALBUT/IPRATROP 3MG/0.5MG NEB 3 ML VIAL NEB SCH ×4 (06:53→19:09)
[2019-12-28 07:07] LABS: BUN Creatinine Ratio 24.5 (10-20); Calcium 9.5 mg/dl (8.5-10.1); Creatinine Clr Calc Pharmacy 156.2 ml/min; Est GFR (African American) 138.3; Est GFR (Non-African American) 119.3; Potassium 4.6 mmol/L (3.5-5.1)
[2019-12-28] MEDS: DOCUSATE SODIUM 100 MG CAP PO SCH (08:02)
[2019-12-28] MEDS: guaiFENesin 600 MG TABCR PO SCH (08:07)
[2019-12-28] MEDS: diazePAM 5 MG TABLET PO SCH ×3 (08:07→20:04)
[2019-12-28] MEDS: MULTIVITAMIN TAB PO SCH (08:07)
[2019-12-28] MEDS: MAGNESIUM OXIDE 400 MG TAB PO SCH (08:08)
[2019-12-28] MEDS: DIVALPROEX SODIUM SPRINKLE 125 MG CAP PO SCH ×2 (08:08→16:46)
[2019-12-28] MEDS: lamoTRIgine 100 MG TAB PO SCH ×2 (08:09→16:45)
[2019-12-28] MEDS: ENOXAPARIN INJ 40 MG/0.4 ML SYR SQ SCH (08:11)
[2019-12-28] MEDS ORDERED: carBAMazepine 200 MG TABLET PO ONE (08:30)
[2019-12-28] MEDS ORDERED: DIAZEPAM 5 MG/ML INJ 10ML VIAL IV PRN (09:48)
[2019-12-28] MEDS: LEVOTHYROXINE SODIUM 88 MCG TABLET PO SCH (10:08)
[2019-12-28] MEDS: levoFLOXacin 750 MG TAB PO SCH (10:08)
--- NOTE | 2019-12-28 10:12 | Hospitalist Progress Note ---
Date of Service December 28, 2019 Assessment & Plan (1) PNA (pneumonia): 49-year-old female was admitted on 22 December 2019 for hypoxia preceded by 5 days of cold symptoms and congestion. Left lower lobe pneumonia, hypoxia, history of tracheostomy - SpO2 87% on arrival. Negative influenza. Procalcitonin negative. Nasal MRSA positive. BCx NGTD. Sputum culture notes kacey albicans. echo noted EF 60-65%, otherwise normal. - CXR shows R > L pleural effusions with bibasilar opacities and a slightly progressive worsening of the right upper lobe airspace opacity. Unchanged on CXR. - Given ceftriaxone and azithromycin in ED. switched to Zosyn and vancomycin due to concerns for HAP / aspiration pneumonia. - Pulmonology signing off with the following recommendationsswitching to p.o. antibiotics, continue neb treatments, Mucomyst and flutter vest at the time of discharge. - Switching today to PO Levaquin, continue for a total of 7 days of Abx Continue to wean oxygen Seizures, longstanding history Multiple overnight and this morning Increase in seizures is likely multifactorialhypoxia, acute illness, Depakote levels were low Consulted neurology, appreciate recommendations Given a dose of Depakote 625 mg, use Valium sparingly, consider IV Depakote thousand milligram bolus if seizures continue Continue home dosing of Tegretol, Depakote, Valium and Lamictal Loose stools Diarrhea is improved today Patient is C. difficile gene positive, but toxin negative. No treatment for C. difficile colitis, but the patient remains on precautions UTI Chronic indwelling Larson catheter, neurogenic bladder. Urine culture likely skin savanna. Chronic anemia Presently stable, monitoring. Chronic hyponatremia Improved Follows with Dr. Torres (nephrology). Gets free water flushes in the gastric tube to follow meds in the morning. Random cortisol was 7 (i.e. not that high). May have some element of adrenal insufficiency. - Could consider dose of steroids if any worsening / hypotension. Ongoing medical issues: - Chronic hypothermia: Averages around temp 36.4. Plans to see endocrinology in the upcoming weeks. - Hypothyroidism: Admit TSH normal. Continue home levothyroxine. - Seizure disorder: Continue with home Tegretol, diazepam, divalproex, Lamictal. - Paraplegia: Result of a seizure causing a T2-T3 injury from hematoma. - Prior left upper extremity DVT secondary to subclavian catheter placement. - Intellectual disability: Nonverbal but follows commands and is interactive. - Hypertension. Possible ovarian cancer. Asthmatic bronchitis. Code status: Full code. Diet: Regular diet by mouth. G-tube for meds and flushes only. Of note, patient chews her pills. DVT prophy: Lovenox. Does have a history of IVC filter. PT/OT: Deferred. Disbo: Admit to PCU telemetry. Parents often at bedside and are very involved in her care. (2) Hypoxia: (3) Tracheostomy tube present: Tracheostomy care order placed per shift PRN; getting supplemental O2 via trach (4) Loose stools: (5) UTI (urinary tract infection): Positive nitrates on Urine in ED Coverage provided with Zosyn follow culture (6) Chronic indwelling Larson catheter: UTI performed with positive nitrates, culture pending Larson care as needed (7) Neurogenic bladder: (8) Chronic anemia: (9) Hyponatremia: Noted as chronic but review of old EMR shows that level drawn in ED is 125 which is lowest value recorded; also hypochloremic Could benefit from NSS and will order at rate of 100mL x1 bag and reassess in AM Trend with AM labs (10) Hypothermia: Noted in history Monitor and keep warm PRN (11) Hypothyroid: continue with home levothyroxine 88mcg PO qAM (12) Seizure disorder: continue with home meds including Tegretol 200mg qAM PO, Tegretol 400mg PO qPM, Diazepam 5mg PO BID, Divalproex 625mg PO BID, Lamictal 100mg PO BIDM - Noted to need brand names - Seizure precautions ordered (13) Paraplegia: Noted from prior seizure causing T2-T3 injury from hematoma. Wheel chair bound (14) History of DVT (deep vein thrombosis): (15) Intellectual disability: Supervising Physician Co-Signing Physician Notes Patient seen and examined with PGY-3 Dr. Jacky Garza. Agree with history, exam findings, assessment and plan of care as outlined. In brief, Nikia is a 49 year old female with history of ID, DVT, chronic hyponatremia and hypothyroidism with trach and PEG admitted with pneumonia. Overnight, she had multiple short, self-resolving seizures. Received an extra dose of carbamazepine. Levels of AEDs were drawn as well. She continued to have short-lived seizures this morning as well. Later in the day, mom noticed that she was flushed and having a bit more mucus/seems that the mucus was just out of the reach of the suction. Temp a bit more elevated than normal. 1. Pneumonia, originally on vanc and zosyn. When we switched to levaquin, started having seizures, getting flushed. Switched from levaquin to zosyn--this should cover anaerobes as well as typical CAP organisms. Continue with chest PT, suction, mucinex. Continue to titrate O2. With new flushing and elevated temp above her baseline which may be secondary to recent seizures, concern that pneumonia worsening. repeat CXR this afternoon shows interval improvement compared to yesterday. Lower suspicion for urinary source of new infection and antibiotics she is on should cover most of these organisms. 2. Breakthrough seizures. Unsure if this is because she is acutely ill in addition to not getting great sleep in the last night or two + switch to levaquin. Appreciate neurology recommendations--increased scheduled valium to TID (previously BID) x 24 hours and given additional 625mg depakote. 3. chronic hyponatremia. sodium actually in a normal range right now. Will continue to keep an eye on this. 4. diarrhea. C. diff toxin neg. Improving. Dispo: pending clinical improvement. Subjective Mother is present and states that overnight the patient had approximately 4 seizures. They appeared like her normal seizures. She does state that she had a number of additional seizures this morning, that not look like her typical seizures. Review of Systems Review of Systems: Unobtainable due to cognitive status Physical Exam Constitutional: WD/WN, vitals as above Eyes: PERRL, conjunctivae normal, anicteric sclerae ENMT: Ears: no external ear abnormality Nose: no external nose abnormality Respiratory: normal respiratory effort; no respiratory distress, no labored breathing, no retractions and does not use accessory muscles Cardiovascular: RRR, no murmur, no edema Gastrointestinal (Abdomen): normal bowel sounds, soft, nontender, no hepatosp lenomegaly Musculoskeletal: no cyanosis or clubbing, extremities motor strength 5/5 Skin: no rashes, warm and dry Psychiatric: Orientation: alert Results & Data ([facility]) Vital Signs (Past 12 Hours) Vital Signs Temp Pulse Pulse Pulse Resp BP BP 12/28/19 07:26 36.9 C 92 H 17 131/85 12/28/19 07:00 68 18 12/28/19 05:09 37.3 C 88 18 149/100 H 12/27/19 23:46 36.5 C 81 19 101/65 12/27/19 22:20 92 H Pulse Ox 12/28/19 07:26 91 12/28/19 07:00 91 12/28/19 05:09 90 12/27/19 23:46 94 12/27/19 22:20 Resident Activity Tracking Resident Involvement: Resident Care Provided Care Provided: Adult Hospital Medicine (1) UTI (urinary tract infection) Hematuria presence: with hematuria Urinary tract infection type: site unspe cified Qualified Code(s): N39.0 - Urinary tract infection, site not specified; R31.9 - Hematuria, unspecified (2) Hypothermia Encounter type: initial encounter Qualified Code(s): T68.XXXA - Hypothermia, initial encounter
[2019-12-28] MEDS ORDERED: DIVALPROEX SODIUM SPRINKLE 125 MG CAP PO ONE (12:30)
--- NOTE | 2019-12-28 14:09 | Consultation Report ---
DATE: 12/28/2019 REASON FOR CONSULTATION: Breakthrough seizures. 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 In general, her seizure control has been somewhat tenuous. Seizures tend to occur every day but are of short duration. Her mother describes several types of episodes, one is the typical generalized seizure where she stiffens up and is unresponsive for a minute. There have been other times when she has spells that last 10-15 minutes which are very unusual and spells of staring or automatism lasting seconds. When she was ambulatory as a youngster, she may have had myoclonic seizures and drop attacks. She has chronically been on Tegretol 200 in the morning and 400 at night, Valium 5 mg b.i.d. with the ability to increase to t.i.d. on a day of increased seizures, Depakote sprinkles 125 5 twice a day and Lamictal 100 mg twice a day. When she was hospitalized in October of 2018 with increased seizures, it was advised that the dose of Lamictal be increased to 150 mg twice a day. It is currently 100 mg twice a day. Mother thinks that perhaps the higher dose was not effective and the dose was reduced. The Tegretol dose has been adjusted somewhat due to visual complaints. She tends to run Depakote levels in the 80s, Tegretol levels in the 12s. Her last labs from 02/11/2019 included Tegretol level of 12.4, Depakote of 8.7 and Lamictal is 9.4. The patient has been hospitalized for an upper respiratory tract infection and yesterday she was transitioned to oral Levaquin. Her mother indicates last evening she had a 10-15 minute seizure and then 4 smaller episodes of stiffening up lasting a minute or 2. At 4:30, she was given an extra 5 mg by mouth Valium and 200 mg of Tegretol. This morning, she has had a few brief episodes of stiffening up about 4, when she has been hospitalized for similar episodes in the past, she has never required intravenous anticonvulsants. Her levels on this admission included Tegretol level of 12.4, Depakote at 53 and pending Lamictal level. PAST MEDICAL HISTORY: Notable for urinary tract infection, possible autonomic instability, mental retardation without cerebral palsy. SURGICAL HISTORY: None. SOCIAL HISTORY: She lives with her parents. Nonsmoker, nondrinker. FAMILY HISTORY: Noncontributory. Home anticonvulsants are as above. MEDICATIONS: Include Lovenox 40 mg subQ q. 12hours, Tegretol 200 in the morning and 400 at night, Mucinex 600 q.a.m., Lamictal 100 mg twice a day, magnesium oxide, multiple vitamins, Colace, Depakote sprinkle 625 b.i.d., Tegretol 400 at bedtime, albuterol, Mucomyst, levothyroxine, Valium b.i.d., p.r.n., Mucinex, Zofran, Sudafed (Sudafed is a home medications which the patient has taken in the past). PHYSICAL EXAMINATION: VITAL SIGNS: 131/86, 95, 36.9. GENERAL: The patient is awake and alert. She can answer some simple questions with head shaking to her mother. She is otherwise mute. NECK: Supple. Trach is in place. NEUROLOGIC: Pupils are equal. I could not reliably visualize the optic nerves. Eye movements are conjugate and roaming. No facial asymmetry. The patient's design assembler strength is fairly good bilaterally. Both arms are greater than antigravity. No movement of the lowers was noted. Reflexes are diffusely brisk. There is clonus in the lower. Sensory, cerebellar were not testable. IMPRESSION: Recent breakthrough of seizures likely related to infection, query a relationship to the levofloxacin. PLAN: I have discussed with her parents our approach. We both agree on giving her 625 mg of Depakote now. Continue the doses of anticonvulsants with the exception of having her take Valium 5 mg 3 times a day for today. I think we need to be very cautious about using intravenous Valium or Ativan for these episodes. Her control has chronically been poor and I would no advocate the use intravenous Valium unless absolutely necessary and would prefer Ativan due to it's longer duration of afction. Although she has been on Keppra in the past that might be an option to give her an intravenous bolus of 1000 mg if she were to have ongoing seizures in an effort to use it short term to break the cycle. We will follow with you. RADHAD
[2019-12-28] MEDS: carBAMazepine 200 MG TABLET PO SCH (16:45)
[2019-12-28] MEDS ORDERED: ACETAMINOPHEN 325 MG TAB PO PRN (17:24)
[2019-12-28] MEDS ORDERED: ACETAMINOPHEN 325 MG TAB PO STA (17:25)
[2019-12-28] MEDS ORDERED: PIPERACILL/TAZOBAC CONSULT ACTIVE PRN (17:45)
[2019-12-28] MEDS ORDERED: PIPERACILLIN/TAZOBACTAM 4.5 GM in DEXTROSE 5% 100 ML IV ONE (18:15)
--- NOTE | 2019-12-28 18:16 | XRay Report ---
XR chest 1V portable HISTORY: Shortness of breath. COMPARISON: Chest 12/27/2019. FINDINGS: Low lung volumes with mild elevation right hemidiaphragm. Bibasilar linear densities persis t. There is mild central pulmonary vascular congestion without overt edema. The heart remains mildly enlarged. There is a tracheostomy tube and a gastrostomy tube in place. IMPRESSION: 1. Mild central pulmonary vascular congestion without overt edema. 2. Bibasilar linear densities favor subsegmental atelectasis. ACT 112: Negative or not required by law. Electronically signed by: Guzman Jansen M.D. 12/28/2019 6:14 PM
[2019-12-28] MEDS: PIPERACILLIN/TAZOBACTAM 4.5 GM in DEXTROSE 5% 100 ML IV SCH (22:56)
[2019-12-29] MEDS: PIPERACILLIN/TAZOBACTAM 4.5 GM in DEXTROSE 5% 100 ML IV SCH (06:12)
[2019-12-29] MEDS: ALBUT/IPRATROP 3MG/0.5MG NEB 3 ML VIAL NEB SCH ×2 (06:56→10:57)
[2019-12-29] MEDS: ACETYLCYSTEINE 20% INHAL SOLN 4ML ***DISPENSED BY RESP. INH SCH (06:56)
[2019-12-29] MEDS: lamoTRIgine 100 MG TAB PO SCH (07:53)
[2019-12-29] MEDS: guaiFENesin 600 MG TABCR PO SCH (07:53)
[2019-12-29] MEDS: carBAMazepine 200 MG TABLET PO SCH (07:53)
[2019-12-29] MEDS: DIVALPROEX SODIUM SPRINKLE 125 MG CAP PO SCH (07:54)
[2019-12-29] MEDS: MAGNESIUM OXIDE 400 MG TAB PO SCH (07:54)
[2019-12-29] MEDS: DOCUSATE SODIUM 100 MG CAP PO SCH ×2 (07:54→08:31)
[2019-12-29] MEDS: ENOXAPARIN INJ 40 MG/0.4 ML SYR SQ SCH (07:55)
[2019-12-29] MEDS: MULTIVITAMIN TAB PO SCH (07:56)
[2019-12-29] MEDS: diazePAM 5 MG TABLET PO SCH (08:03)
[2019-12-29 08:44] LABS: Basophils # (auto) 0.01 K/uL (0-0.2); Basophils % (auto) 0.2 %; Eosinophils # (auto) 0.09 K/uL (0-0.5); Hemoglobin 11.5 g/dL (12.0-16.0); Immature Granulocytes # (auto) 0.02 K/uL (0.00-0.02); Immature Granulocytes % (auto) 0.4 %; Lymphocytes # (auto) 1.21 K/uL (1.2-3.4); Lymphocytes % (auto) 27.1 %; Mean Corpuscular Hemoglobin 32.3 pg (25-34); Mean Corpuscular Hgb Conc 34.8 g/dL (32-36); Mean Corpuscular Volume 92.7 fL (80-100); Mean Platelet Volume 8.3 fL (7.4-10.4); Monocytes # (auto) 0.62 K/uL (0.11-0.59); Monocytes % (auto) 13.9 %; Neutrophils # (auto) 2.52 K/uL (1.4-6.5); Neutrophils % (auto) 56.4 %; Platelet Count 145 K/uL (130-400); RDW Coefficient of Variation 14.9 % (11.5-14.5); RDW Standard Deviation 50.5 fL (36.4-46.3); Red Blood Count 3.56 M/uL (4.2-5.4); White Blood Count 4.47 K/uL (4.8-10.8)
[2019-12-29 09:20] LABS: BUN Creatinine Ratio 21.9 (10-20); Calcium 9.1 mg/dl (8.5-10.1); Creatinine Clr Calc Pharmacy 108.8 ml/min; Est GFR (African American) 123.8; Est GFR (Non-African American) 106.8; Potassium 3.7 mmol/L (3.5-5.1)
[2019-12-29] MEDS: LEVOTHYROXINE SODIUM 88 MCG TABLET PO SCH (10:27)
--- NOTE | 2019-12-29 11:11 | Discharge Summary ---
Date of Service December 29, 2019 Admission HPI Per Admitting Provider Nikia Pickens is a 49 y/o female with past medical hx of pneumonia, MRSA UTI, hypothyroid, general epilepsy, paraplegia wheelchair bound, intellectual disability, tracheostomy, peg tube, who presented by parents for CC of hypoxia. Family noted that everyone in household have been dealing with cold like symptoms. They state that about 5 days ago Kelsey developed cold like symptoms of congestion that they have been treating with sudafed OTC. They note that today she had a pulse ox reading at home of 88-90% with her baseline of 94% or greater. They also noted she was not herself today, appeared to have decreased activity. She enjoys playing cards in the morning and mom noted "she seemed to have to think more" when playing. They deny any recent antibiotic use, last hospitalization was in September 2019 for UTI. Mom notes she has a hx of UTI MRSA. She has had the influenza vaccination this year and was flu swab negative here in ED. She does have a PEG tube that is used for free water and otherwise takes food PO. Mom notes that she takes her pills by chewing them, so ER tabs aren't an option. She has not had any diarrhea or increased swelling. She has weekly seizure like activity, but none today. Mom notes she stays with patient while she is hospitalized for patient's safety as she is very familiar with Nikia's care. Patient is non-verbal but follows commands, she was found to have a LLL infiltrate here in the ED and was treated with Azithromycin 500mg x1 dose and Rocephin 2gm IV x1. Dad notes that she is chronically hyponatremic "so don't freak out when you see her sodium level." Admission Exam Per Admitting Provider Review of Systems: All systems reviewed & are unremarkable except as noted in HPI & below Constitutional: no fever and no chills noted by family hx of hypothermia Eyes: no discharge Ear, Nose, Mouth, Throat: + nasal congestion Respiratory: no change in sputum Cardiovascular: no edema Integumentary: no rash and no lesions Principal Diagnosis pneumonia Discharge Exam General: Cooperative. NAD. HEENT: Atraumatic, normocephalic. Tracheostomy in place. Pulm: Coarse upper airway sounds, after coughing/suction lungs grossly CTAB A&P. -wheezes, -rales, -rhonchi. No increase work of breathing. No respiratory distress. Cardiac: RRR, -mrg. Radial pulses intact and symmetrical. Abdominal: Nontender, nondistended, soft. BS present. : Larson in place, draining clear yellow urine. Discharge Data Allergies Allergy/AdvReac Type Severity Reaction Status Date / Time phenobarbital AdvReac Intermediate depresssed Verified 12/22/19 22:25 Consultations 12/22/19 21:35 ED Decision to Admit Stat 12/23/19 00:02 Consult Case Management - Discharge Planning Routine 12/23/19 09:42 Consult Pulmonology Routine 12/28/19 09:43 Consult Neurology Routine Hospital Course (1) PNA (pneumonia): Nikia is a 49-year-old female with a past medical history of seizure disorder resulting in paraplegia, neurogenic bladder, tracheostomy, and intellectual disability who presented with hypoxia and cold-like symptoms and who was admitted for pneumonia. Acute hypoxic respiratory failure 2/2 left lower lobe pneumonia On arrival Nikia was found to be hypoxic with SPO2 approximately 87%. Chest x- ray showed bibasilar opacities and pleural effusion. Influenza testing was negative, pro calcitonin was negative, MRSA nare was positive. Sputum culture was taken and resulted Marisabel albicans. She was treated empirically with Rocephin and azithromycin in the emergency department and was switched to Zosyn with vancomycin for concerns of hospital-acquired pneumonia/aspiration pneumonia. Pulmonology was consulted and she was converted to Levaquin but had increased seizure activity as noted below. Her antibiotics were narrowed to Augmentin/doxycycline and she clinically improved and appeared well on day of discharge. She was discharged to continue Augmentin/doxycycline to complete a total 7-day course of antibiotics if well, with potential extension to 10 total days if not improving. She is breathing well and no respiratory distress was present at time of discharge, and was discharged to follow-up with her PCP. Seizures Nikia has a history of chronic seizures for which she takes lamotrigine, diazepam, and carbamazepine. She experienced increased seizure activity as result of acute illness. She was given additional Depakote load with return to therapeutic levels. Neurology was consulted and she was given in additional dose of Valium for 1 day of 3 times daily dosing up from her TOOL AND DIE ASSEMBLER twice daily dosing. Keppra was deferred. It was felt that she may have had increased seizure activity in the setting of increased fatigue, poor sleep, and a potentially lowered seizure threshold as a result of receiving Levaquin. Levaquin was discontinued as noted above. On day of discharge her mother felt that she was at her normal cognitive baseline, and she did not show any seizure- like activity. Loose stools Center had loose stools in the setting of antibiotic treatment. Her bowel movements were not completely liquid. She was C. difficile gene positive, but toxin negative. No indication for C. difficile colitis was indicated, and she did not show signs of active C. difficile disease during her admission. Chronic indwelling Larson catheter Nikia has a chronic indwelling Larson due to neurogenic bladder. No changes were made during admission. Chronic hyponatremia Nikia is a history of hyponatremia followed with Dr. Mendoza. She receives free water flushes via her gastric tube following meds in the morning. Her sodium was 135 at discharge, and she did not show signs of symptomatic hyponatremia on day of discharge. Hypothyroidism Admission TSH was normal, she is continued on her TOOL AND DIE ASSEMBLER levothyroxine (2) Seizure disorder: (3) Paraplegia: (4) Intellectual disability: (5) Chronic anemia: (6) Neurogenic bladder: (7) Loose stools: Total Time Total Time Spent Total Time Spent (In Minutes): <30 Discharge Plan Discharge Items Patient Disposition: Home - Self-Care Reason For Visit: PNEUMONIA Discharge Diagnosis: Left lower lobe pneumonia Activity: Resume your previous activity Non-emergency contact: Primary Care Provider Call non-emergency contact if: you have any medication questions, your symptoms worsen, your pain is not controlled, your pain is worsening, your pain is unusual for you, your pain is concerning for you and you have a fever Follow-up/Referrals: Amber Gtz MD [Physician] - 01/07/20 1:00 pm Gómez Murrell DO [Primary Care Provider] - Diet: Regular Addtl Attending Provider Instructions: Nikia is seen in the hospital for left lower lobe pneumonia. She had increased seizures during her admission in the setting of acute illness. She received an extra dose of Valium during her admission stay, and her Depakote level was slightly low so she received an additional dose during hospitalization. Her seizure activity had returned to her normal baseline by time of discharge. She has been discharged on antibiotics for pneumonia as below. Nikia is been discharged on Augmentin and doxycycline for pneumonia. Please take Augmentin 875 mg twice daily for 2 more days (this will complete a 7 day course). Please also take doxycycline 100 mg twice daily for 2 days. You have been given prescriptions for 5 days of antibiotics. If Nikia is doing well she may stop taking antibiotics after 2 days, if she is not recovering well or your primary care physician advises you for a longer course of treatment please take the full 5 days of antibiotics (which will complete a course of 10 days including antibiotics recieved in the hospital). These antibiotics may cause diarrhea. Doxycycline will also make Nikia skin more sensitive to sunlight, please avoid prolonged direct sunlight exposure and use sunscreen while on this antibiotic. If La develops any rash, wheezing, difficulty breathing, persistent diarrhea, worsening shortness of breath, or other new or concerning symptoms please contact your primary care provider, or return to the emergency department for reevaluation if you are very concerned. A follow-up appointment is being scheduled for you with your primary care provider Dr. Murrell. You should receive a call to confirm your appointment within 48 hours of discharge. If you do not receive a call, or need to cancel/change your appointment, please call his office at . Develop any worsening fever, chills, shortness of breath, difficulty breathing, confusion, rash, wheezing, throat swelling, increasing diarrhea, chest pain, inability to tolerate food or drink, or other new or concerning symptoms please contact your primary care provider or return to the emergency department for reevaluation. Pending Studies at Discharge: No Stand-Alone Forms: My [facility] [employer], Smoking Cessation Medications and DC Order Prescriptions: New amoxicillin-pot clavulanate [Augmentin] 875-125 mg tablet 1 tab PO BID 5 Days Qty: 10 RF: 0 doxycycline hyclate 100 mg tablet 100 mg PO BID 5 Days Qty: 10 RF: 0 Protonix [address] for susp in packet 40 mg PO DAILY 7 Days Qty: 7 RF: 0 Continued lamotrigine [Lamictal] 100 mg tablet 100 mg PO BIDM RF: 0 diazepam 5 mg tablet 5 mg PO BID RF: 0 multivitamin Tablet 1 tab PO QAM RF: 0 pseudoephedrine HCl [Sudafed] 30 mg Tablet 30 mg PO DAILY RF: 0 magnesium oxide 200 mg magnesium Tablet 200 mg PO Q2D RF: 0 magnesium oxide 200 mg magnesium Tablet 400 mg PO Q2D RF: 0 guaifenesin 600 mg Tablet Extended Release 12hr 600 mg PO QAM RF: 0 levothyroxine 88 mcg tablet 88 mcg PO QAM RF: 0 carbamazepine [Tegretol] 200 mg tablet 200 mg PO QAM RF: 0 guaifenesin 600 mg Tablet Extended Release 12hr 600 mg PO HS PRN (Reason: Congestion) RF: 0 carbamazepine [Tegretol] 200 mg Tablet 400 mg PO QPM RF: 0 divalproex 125 mg Capsule, Delayed Rel Sprinkle 625 mg PO BID RF: 0 Discharge Orders: Discharge Order (Routine); Ordered 12/29/19 Ordered By: Hector Robledo Admission Data Admit Date/Time: 12/22/19 22:48 Attending Provider: Hector Robledo Admit Provider: Bob Valiente Primary Care Provider: Gómez Murrell Other Providers: Anibal Csome ; Amber Gtz ; Jana Perez ; Carlos A Altman Other Interventions: Discharge Summary Assessment (RN) Last Done: 12/29/19 13:47 DC Date/Time DO NOT enter until pt leaves facility: 12/29/19 14:42 Supervising Physician Co-Signing Physician Notes I personally examined the patient and verified all rodney points of history and exam, discussed case, and agree with decision making with Dr Ramirez. Patient without any meaningful HPI or review of systems. Mother notes that she looks more or less at her baseline, and would like to take her home. Discussed plan of treatment. Answered all questions to the best of my ability. Vitals noted, in general she is awake and alert pleasant no distress. HEENT normocephalic atraumatic mucous membranes are moist. Lungs are clear to auscultation bilaterally no rales rhonchi or wheeze with good effort. Skin shows no rashes no pallor or icterus. Pneumoniaimproving, stable for home. Finish out course of antibiotics, close outpatient follow-up. Otherwise as above Resident Activity Tracking Resident Involvement: Resident Care Provided Care Provided: Adult Hospital Medicine
[2019-12-29 11:42] VITALS: BP 117/74; PULSE 80; TEMP 97.5; O2SAT 100
--- NOTE | 2019-12-29 17:07 | Billing Data ---
Date of Service December 29, 2019 Coding Level of Care Code D/C Day Management <30 mins
--- NOTE | 2020-01-21 16:48 | Coding Query ---
CODING QUERY To promote full compliance with coding requirements relating to patient care, provider participation is requested in all cases of machine ii engraver uncertainty. Please assist us with the question(s) below: Coding Question(s): Please indicate the organism causing the pneumonia. 12/25 progress note documents likely MRSA PNA vs aspiration pneumonia. The following progress notes and discharge summary document left lower lobe pneumonia without mention of organism. Physician's Response(s): probable aspiration pneumonia Thank you Francheska Galaviz Principal Diagnosis: "that condition established after study, to be chiefly responsible for occasioning the admission of the patient to the hospital for care." Co-Existing Principal Diagnosis: "when two or more diagnoses equally meet the criteria for principal diagnosis as determined by the circumstances of admission, diagnostic work up, and/or therapy provided, and the Alphabetic Index, Tabular List, or another coding guideline does not provide sequencing direction, any one of the diagnoses may be sequenced first." "When the physician has documented what appears to be a current diagnosis in the body of the record, but has not included the diagnosis in the final diagnostic statement, the physician should be asked whether the diagnosis should be added." (Source Coding [facility] 2 QTR90. p3-4) NENA
== END 2019-12-29 14:42 | disposition home or self-care (01) | DRG 177 ==
LOC: ED 17:32 → SUATTDRO 22:48 → 2S 22:48

== ENCOUNTER 2020-10-17 18:25 | Inpatient (IN) ==
[2020-10-17] MEDS ORDERED: SODIUM CHLORIDE 0.9% 1000ML 1,000 ML IV ONE (19:32)
--- NOTE | 2020-10-17 19:39 | Emergency Department Note ---
Impression & Plan COVID-19, Paraplegia, Generalized epilepsy, Mental retardation, Pneumonia, Hypoxia, Acute hyponatremia ED Provider Note NAME: JAKE RAMIREZ AGE: 50 SEX: F : 1970 ARRIVES VIA: Walk-In INFORMANT: Patient ED PROVIDER(S): Hector Magana DO CHIEF COMPLAINT: Weakness, lethargy and hypoxia HPI: Patient is a 42-year-old female with a past medical history of MR, Wilfredo, Seizure disroder who presents to the ER for shortness of breath, lethergy and hypoxia at home. Both of her parents are Covid positive. Her was nursing direct care supervisor here in the ER and has been checking her pulse ox and has been drifting down to 85% on room air. Symptoms started about 9 days ago. Over the past 4 days she has become much more lethargic. She is not been eating and drinking as per normal. She has been requiring increased suctioning. She has a trach, suprapubic catheter and G-tube. They have been pushing feeds and fluids to the G-tube. She has been afebrile. Parents are feeling better. She did have 2-3 seizures recently in the past 24 hours. ROS: See above HPI for pertinent positives & negatives. A total of 10 systems reviewed and were otherwise negative. PAST MEDICAL HISTORY:See Below PAST SURGICAL HISTORY:See Below FAMILY HISTORY:See Below SOCIAL HISTORY:See Below HOME MEDICATIONS:See Below ALLERGIES:See Below VITALS:See Below PHYSICAL EXAMINATION: GENERAL: Sitting up in bed, alert but lethargic and ill-appearing EYE EXAM: normal conjunctiva. PERRL and EOM's grossly intact. OROPHARYNX: Dry mucous membranes NECK: Trach in place LUNGS: Poor air movement with rhonchi bilaterally. Normal chest wall mechanics HEART: no murmurs, S1 normal and S2 normal ABDOMEN: G-tube in place, abdomen soft, non-tender, normo-active bowel sounds, no masses, no rebound or guarding. UPPER EXTREMITIES: upper extremities are grossly normal. LOWER EXTREMITIES: No pitting edema. NEURO EXAM: Awake alert answering questions but lethargic moving upper extremities MEDICAL DECISION MAKING: Patient is a 50-year-old female who presents the ER brought in by mom for shortness of breath, weakness and hypoxia at home. Patient was placed on trach collar. IV was established blood work was obtained. Labs show no significant leukocytosis. Mild anemia 11.9 thousand. INR was unremarkable. BMP with a significant hyponatremia at 119. Baseline appears to be about 125. Chloride is low at 88. LFTs bilirubin was unremarkable. Troponin was negative. Chest x- ray shows multifocal patchy infiltrates bilaterally. She was placed on trach collar. She was given IV fluids as well as IV Rocephin and azithromycin. Mom was updated at bedside. Patient will be admitted for further work-up. Discussed with Dr. Kay for further evaluation. Patient was given neb treatment. EKG was slightly worse than previous but do favor secondary to demand from the infection. Triage Nursing notes reviewed. Prior medical records reviewed Vital Signs: reviewed and remarkable for HTN Differential diagnosis: Differential diagnoses includes but is not limited to pneumonia, bronchitis, COPD/Asthma exacerbation, pneumothorax, pulmonary embolism, congestive heart failure, acute coronary syndrome ER treatment provided: See below Diagnostics interpreted by me: ECG: Sinus rhythm rate of [address] depressions in the inferior leads as well as the lateral leads QTC [address] depressions are worse in comparison to December 22, 2019 Cardiac Monitoring: An order was placed for continuous cardiac monitoring. The monitor shows a rate of 80 with sinus rhythm. Laboratory studies: As stated above and show below. Imaging studies: Portable AP upright 1 view of the chest shows multifocal patchy infiltrates per my read Consultation(s): Discussed with Dr. Nancy Kay for further evaluation ED COURSE: Procedures: none Critical Care: I have personally spent 40 minutes of critical care time in the direct management of this patient. This includes bedside care, interpretation of diagnostic studies, and testing, discussion with consultants, patient, and family members, and other required patient management activities. This 40 minutes is in excess of all separately billable procedures. Past Med/Surg History Medical History (Updated 10/17/20 @ 21:16 by Hector Magana DO) Chronic constipation Gastrointestinal tube present Generalized epilepsy (09/22/11) Harrington filter in place 2014 -Placed after back surgery prophylactically Mental retardation Surgical History Difficult ventilator weaning 2015 - post op back surgery History of ankle surgery left ankle History of back surgery 2014 History of cardiac cath [place] 2015 Hx of hysterectomy, total 2009 Family History Other No pertinent family history in first degree relatives Social History Smoking Status: Never smoker Second Hand Exposure: No; Hx Alcohol Use: No Hx Substance Use: No Preferred Language: Serbian Communication Ability: Unable Logistics Management Specialist Required: No Beliefs That Will Affect Care: None Current Living Situation: Parent Feels Safe at Home: Yes Assistive Devices: Mechanical Lift Allergies Allergies Allergy/AdvReac Type Severity Reaction Status Date / Time phenobarbital AdvReac Intermediate depresssed Verified 08/16/20 11:13 Home Meds Home Medications Medication Instructions Recorded Confirmed diazepam 5 mg PO BID 11/14/18 08/16/20 lamotrigine [Lamictal] 100 mg PO BIDM 11/14/18 08/16/20 magnesium oxide 200 mg PO Q2D 11/14/18 08/16/20 magnesium oxide 400 mg PO Q2D 11/14/18 08/16/20 multivitamin 1 tab PO QAM 11/14/18 08/16/20 carbamazepine [Tegretol] 400 mg PO QPM 01/15/19 08/16/20 divalproex 625 mg PO BID 01/15/19 08/16/20 carbamazepine [Tegretol] 200 mg PO QAM 12/22/19 08/16/20 guaifenesin 600 mg PO HS PRN 12/22/19 08/16/20 pseudoephedrine HCl 30 mg tablet 30 mg PO DAILY PRN 01/29/20 08/16/20 docusate sodium 100 mg capsule 100 mg PO DAILY PRN 08/16/20 08/16/20 levalbuterol HCl 0.63 mg/3 mL 0.63 mg INHALATION TID PRN 08/16/20 08/16/20 solution for nebulization oxybutynin chloride 10 mg 10 mg PO DAILY PRN tab 08/16/20 tablet,extended release 24 hr Previous Rx's Medication Instructions Recorded levothyroxine 200 mcg tablet 200 mcg PO DAILY #30 tab 09/07/20 methenamine hippurate 1 gram tablet 1 g PO BID #60 tab 09/13/20 Results & Data (ED) Vital Signs Vital Signs - 24 hr 10/17/20 18:44 10/17/20 19:32 10/17/20 19:33 Temperature 36.4 C L Temperature Source Oral Pulse Rate 74 Pulse Rate [Apical] 75 Pulse Rate from SpO2 Sensor Respiratory Rate 24 Respiratory Effort / Characteristics Non-Labored Respiratory Depth Normal Blood Pressure Blood Pressure [Right Arm] 157/94 H Blood Pressure Mean Blood Pressure Mean [Right Arm] 115 Blood Pressure Position [Right Arm] Sitting Pulse Oximetry 91 92 92 Oxygen Delivery Method Room Air Room Air Room Air Oxygen Flow Rate Sepsis Recent Fever Within 48 Hours No Sepsis New/Unexplained Change in Mental Status No Sepsis Action Taken by Nursing No Action Required Oxygen Flow Rate - Titration Pulse Oximetry Post Tiitration 10/17/20 19:45 10/17/20 20:06 10/17/20 20:20 Temperature Temperature Source Pulse Rate 75 Pulse Rate [Apical] Pulse Rate from SpO2 Sensor 76 Respiratory Rate 22 18 Respiratory Effort / Characteristics Non-Labored Spontaneous Respiratory Depth Blood Pressure 147/82 H Blood Pressure [Right Arm] Blood Pressure Mean 100 Blood Pressure Mean [Right Arm] Blood Pressure Position [Right Arm] Pulse Oximetry 91 93 91 Oxygen Delivery Method Room Air Trach Collar Room Air Trach Collar Oxygen Flow Rate 4 Sepsis Recent Fever Within 48 Hours Sepsis New/Unexplained Change in Mental Status Sepsis Action Taken by Nursing Oxygen Flow Rate - Titration 4 Pulse Oximetry Post Tiitration 94 Laboratory Data Result diagrams: 10/17/20 19:42 10/17/20 20:36 Lab Results 10/17/20 10/17/20 10/17/20 Range/Units 19:42 20:36 20:36 WBC 4.94 (4.8-10.8) K/uL RBC 3.75 L (4.2-5.4) M/uL Hgb 11.9 L (12.0-16.0) g/dL Hct 33.0 L (37-47) % MCV 88.0 (80-100) fL MCH 31.7 (25-34) pg MCHC 36.1 H (32-36) g/dL RDW Std Deviation 47.6 H (36.4-46.3) fL RDW Coeff of Nazanin 14.6 H (11.5-14.5) % Plt Count 113 L (130-400) K/uL MPV 12.2 H (7.4-10.4) fL Immature Gran % (Auto) 1.8 % Neut % (Auto) 71.2 % Lymph % (Auto) 14.4 % Walsh % (Auto) 12.6 % Eos % (Auto) 0.0 % Baso % (Auto) 0.0 % Neut # (Auto) 3.52 (1.4-6.5) K/uL Lymph # (Auto) 0.71 L (1.2-3.4) K/uL Walsh # (Auto) 0.62 H (0.11-0.59) K/uL Eos # (Auto) 0.00 (0-0.5) K/uL Baso # (Auto) 0.00 (0-0.2) K/uL Immature Gran # (Auto) 0.09 H (0.00-0.02) K/uL Platelet Estimate Decreased L (Normal) Echinocytes 1+ PT 10.8 (9.0-12.0) Seconds INR 1.0 (0.9-1.1) APTT 40.7 H (21.0-31.0) Seconds PTT Ratio 1.5 Sodium 119 L* (136-145) mmol/L Potassium 4.9 (3.5-5.1) mmol/L Chloride 88 L (98-107) mmol/L Carbon Dioxide 26 (21-32) mmol/L Anion Gap 4.0 (3-11) BUN 8 (7-18) mg/dl Creatinine 0.25 L (0.6-1.2) mg/dl Est Cr Clr Drug Dosing 275.7 ml/min Est GFR ( Amer) > 150.0 Est GFR (Non-Af Amer) 143.8 BUN/Creatinine Ratio 32.7 H (10-20) Glucose 88 (70-99) mg/dl Lactate (0.4-2.0) mmol/L Calcium 8.0 L (8.5-10.1) mg/dl Magnesium 1.9 (1.8-2.4) mg/dl Total Bilirubin 0.2 (0.2-1) mg/dl AST 31 (15-37) U/L ALT 23 (12-78) U/L Alkaline Phosphatase 119 H (45-117) U/L Troponin I < 0.015 (0-0.045) ng/ml Total Protein 5.8 L (6.4-8.2) gm/dl Albumin 2.2 L (3.4-5.0) gm/dl Globulin 3.6 (2.5-4.0) gm/dl Albumin/Globulin Ratio 0.6 L (0.9-2) 10/17/20 Range/Units 20:36 WBC (4.8-10.8) K/uL RBC (4.2-5.4) M/uL Hgb (12.0-16.0) g/dL Hct (37-47) % MCV (80-100) fL MCH (25-34) pg MCHC (32-36) g/dL RDW Std Deviation (36.4-46.3) fL RDW Coeff of Nazanin (11.5-14.5) % Plt Count (130-400) K/uL MPV (7.4-10.4) fL Immature Gran % (Auto) % Neut % (Auto) % Lymph % (Auto) % Walsh % (Auto) % Eos % (Auto) % Baso % (Auto) % Neut # (Auto) (1.4-6.5) K/uL Lymph # (Auto) (1.2-3.4) K/uL Walsh # (Auto) (0.11-0.59) K/uL Eos # (Auto) (0-0.5) K/uL Baso # (Auto) (0-0.2) K/uL Immature Gran # (Auto) (0.00-0.02) K/uL Platelet Estimate (Normal) Echinocytes PT (9.0-12.0) Seconds INR (0.9-1.1) APTT (21.0-31.0) Seconds PTT Ratio Sodium (136-145) mmol/L Potassium (3.5-5.1) mmol/L Chloride (98-107) mmol/L Carbon Dioxide (21-32) mmol/L Anion Gap (3-11) BUN (7-18) mg/dl Creatinine (0.6-1.2) mg/dl Est Cr Clr Drug Dosing ml/min Est GFR ( Amer) Est GFR (Non-Af Amer) BUN/Creatinine Ratio (10-20) Glucose (70-99) mg/dl Lactate 0.7 (0.4-2.0) mmol/L Calcium (8.5-10.1) mg/dl Magnesium (1.8-2.4) mg/dl Total Bilirubin (0.2-1) mg/dl AST (15-37) U/L ALT (12-78) U/L Alkaline Phosphatase (45-117) U/L Troponin I (0-0.045) ng/ml Total Protein (6.4-8.2) gm/dl Albumin (3.4-5.0) gm/dl Globulin (2.5-4.0) gm/dl Albumin/Globulin Ratio (0.9-2) Administered Medications Discontinued Medications Sodium Chloride (Nss 1000ml) 1,000 mls @ 999 mls/hr IV .[id number] ONE Stop: 10/17/20 20:32 Last Infusion: 10/17/20 20:49 Dose: 0 mls/hr Documented by: [id number] Admin: 10/17/20 19:45 Dose: 999 mls/hr Documented by: [id number] Levalbuterol HCl (Levalbuterol Hcl 1.25 Mg/3 Ml Neb) 1.25 mg NEB NOW STA Stop: 10/17/20 21:14 Last Admin: 10/17/20 21:27 Dose: 1.25 mg Documented by: [id number] Discharge Plan Visit Data Chief Complaint: Respiratory Problems Stated Complaint: respiratory problems ED Provider: Hector Magana Discharge Problem: COVID-19, Paraplegia, Generalized epilepsy, Mental retardation, Pneumonia, Hypoxia, Acute hyponatremia Forms Stand Alone Forms: My [facility] Prescriptions Prescriptions: No Action levothyroxine 200 mcg tablet 200 mcg PO DAILY Qty: 30 RF: 5 docusate sodium [Colace] 100 mg capsule 100 mg PO DAILY PRNRF: 0 methenamine hippurate 1 gram tablet 1 g PO BID Qty: 60 RF: 8 oxybutynin chloride 10 mg tablet extended release 24hr 10 mg PO DAILY PRNRF: 0 levalbuterol HCl 0.63 mg/3 mL solution for nebulization 0.63 mg inhalation TID PRNRF: 0 lamotrigine [Lamictal] 100 mg tablet 100 mg PO BIDM RF: 0 diazepam 5 mg tablet 5 mg PO BID RF: 0 multivitamin Tablet 1 tab PO QAM RF: 0 magnesium oxide 200 mg magnesium Tablet 200 mg PO Q2D RF: 0 magnesium oxide 200 mg magnesium Tablet 400 mg PO Q2D RF: 0 pseudoephedrine HCl [Sudafed] 30 mg tablet 30 mg PO DAILY PRNRF: 0 carbamazepine [Tegretol] 200 mg tablet 200 mg PO QAM RF: 0 guaifenesin 600 mg Tablet Extended Release 12hr 600 mg PO HS PRN (Reason: Congestion) RF: 0 carbamazepine [Tegretol] 200 mg Tablet 400 mg PO QPM RF: 0 divalproex 125 mg Capsule, Delayed Rel Sprinkle 625 mg PO BID RF: 0 Discharge Problem: Pneumonia Qualifiers: Pneumonia type: due to unspecified organism Laterality: unspecified laterality Lung location: unspecified part of lung Qualified Code(s): J18.9 - Pneumonia, unspecified organism
[2020-10-17 20:34] LABS: Hemoglobin 11.9 g/dL (12.0-16.0); Mean Corpuscular Hemoglobin 31.7 pg (25-34); Mean Corpuscular Hgb Conc 36.1 g/dL (32-36); Mean Platelet Volume 12.2 fL (7.4-10.4); Platelet Count 113 K/uL (130-400); RDW Coefficient of Variation 14.6 % (11.5-14.5); RDW Standard Deviation 47.6 fL (36.4-46.3); Red Blood Count 3.75 M/uL (4.2-5.4); White Blood Count 4.94 K/uL (4.8-10.8)
[2020-10-17 20:35] LABS: Echinocytes 1+; Immature Granulocytes # (auto) 0.09 K/uL (0.00-0.02); Immature Granulocytes % (auto) 1.8 %; Lymphocytes # (auto) 0.71 K/uL (1.2-3.4); Lymphocytes % (auto) 14.4 %; Monocytes # (auto) 0.62 K/uL (0.11-0.59); Monocytes % (auto) 12.6 %; Neutrophils # (auto) 3.52 K/uL (1.4-6.5); Neutrophils % (auto) 71.2 %; Platelet Estimate Decreased (Normal)
[2020-10-17] MEDS ORDERED: cefTRIAXone SODIUM 1,000 MG/50 ML BAG IV STA (20:53)
[2020-10-17] MEDS ORDERED: AZITHROMYCIN SUSP 200 MG/5 ML 22.5 ML HOMEPACK PO ONE (20:53)
[2020-10-17 20:58] LABS: Partial Thromboplastin Ratio 1.5; Partial Thromboplastin Time 40.7 Seconds (21.0-31.0); Prothrombin Time 10.8 Seconds (9.0-12.0)
[2020-10-17] MEDS ORDERED: LEVALBUTEROL HCL 1.25 MG/3 ML NEB NEB STA (21:13)
[2020-10-17 21:15] LABS: Alanine Aminotransferase 23 U/L (12-78); Albumin Globulin Ratio 0.6 (0.9-2); Albumin Level 2.2 gm/dl (3.4-5.0); Alkaline Phosphatase 119 U/L (45-117); Aspartate Aminotransferase 31 U/L (15-37); BUN Creatinine Ratio 32.7 (10-20); Bilirubin,Total 0.2 mg/dl (0.2-1); Blood Urea Nitrogen 8 mg/dl (7-18); Carbon Dioxide 26 mmol/L (21-32); Chloride 88 mmol/L (98-107); Creatinine Clr Calc Pharmacy 275.7 ml/min; Est GFR (African American) > 150.0; Est GFR (Non-African American) 143.8; Globulin 3.6 gm/dl (2.5-4.0); Glucose 88 mg/dl (70-99); Magnesium 1.9 mg/dl (1.8-2.4); Potassium 4.9 mmol/L (3.5-5.1); Sodium 119 mmol/L (136-145); Total Protein 5.8 gm/dl (6.4-8.2); Troponin I < 0.015 ng/ml (0-0.045)
[2020-10-17 22:14] LABS: Appearance Urine Clear (Clear); Bacteria Urine Automated 1+ (Negative); Bilirubin Urine Negative (Negative); Blood Urine 1+ (Negative); Cast Urine Automated 0 /lpf (0-5); Color Urine Yellow; Glucose Urine UA Negative (Negative); Ketones Urine Negative (Negative); Leukocyte Esterase Urine 1+ (Negative); Nitrite Urine Positive (Negative); Protein Urine Negative (Negative); RBC Urine Automated 0-4 /hpf (0-4); Specific Gravity Urine 1.008 (1.000-1.030); Urobilinogen Urine Negative (Negative)
--- NOTE | 2020-10-17 22:30 | History & Physical Report ---
Date of Service October 17, 2020 Assessment & Plan (1) COVID-19: 50yo C female presenting with Covid-19 PNA, hypoxemia. Patient had a positive test for Covid-19 10 days ago. She has had 4 days of worsening saturation as well as somnolence/fatigue. Mildly hypoxic on arrival to the ER, 91% on room air which rapidly improved with placement of trach collar - currently on 28% FiO2. Patient afebrile, HD stable, non-toxic in appearance -Admit to medical floor -Maintain isolation precautions - Airborne and contact. Of note, patient's mother is also positive for Covid-19 (Mother is appx 14 days out from positive test, no fever or respiratory complaints during duration of illness). She is able to accompany the patient in the room as patient is nonverbal. -Treatment options discussed at length with patient's parents. They are agreeable to administration of convalescent plasma. Informed consent obtained - sheet on chart -Dexamethasone 6mg IV q daily -Will hold off on Remdesevir therapy for now - patient is 10 days out from her positive test. -Check inflammatory markers - ESR, CRP, Ddimer, LDH, Ferritin -Check procalcitonin -Lovenox 40mg BID -Continue Levalbuterol nebs -Continue supplemental O2 by trach collar. -Continue Robitussin Present on Admission?: Yes (2) Pneumonia: Patient afebrile at present. At risk for bacterial PNA given TDRF. No increase or purulent secretions per mother -Check procalcitonin -Ceftriaxone and Azithromycin for now -CBC for now Present on Admission?: Yes (3) Acute hyponatremia: Iq=173. Patient has had this worked up in the past - no clear explanation, thought possibly secondary to medication effects. No seizure -1L NSS given -Check urine and serum osm, random urine Na -Monitor Na levels Present on Admission?: Yes (4) Generalized epilepsy: No seizure -Continue home medications, Lamictal 100mg po BID, Divalproex 625mg po BID, Tegretol 200mg po qAM and 400mg po qPM Present on Admission?: Yes (5) Hypothyroid: Chronic -Continue Synthroid 200mcg po daily F/E/N - Heplock. Monitor electrolytes, hyponatremia as above, regular diet PO with aspiration precautions Ppx - Lovenox 40 BID Code - Full per discussion with patient Dispo - Admit to medical Patient eats a regular diet orally, medications given crushed in applesauce with exception of Synthroid which is given via PEG tube. Present on Admission?: Yes History of Present Illness Chief Complaint: Covid-19 PNA, hypoxia Primary Care Provider: Gómez Murrell DO Nikia Pickens is a 50yo C female presenting from home with Covid-19, hypoxemia. Patient with mental retardation, tracheostomy dependent respiratory failure (no use of home O2 at baseline - she has a cuffless Shiley #4), PEG tube and suprapubic catheter. She lives at home with her parents who provide majority of her care. She also has a caregiver that comes into the home. Patient's parents developed mild fatigue/body aches/stuffy nose - they were subsequently tested for Covid-19 and found to be positive - appx 2 weeks ago. Patient had a positive Covid-19 test 10 days ago. She has been doing fairly well at home, however, over the last 4 days she has become increasingly fatigued and somnolent, less responsive and interactive. Her mother checks her pulse ox routinely and notes that it has been steadily declining over the last 4 days - 85 - 91%. They suction her as needed and do not not any increased or change in secretions. Mother thinks she may have a UTI as well. No report of fever, nausea, vomiting, diarrhea. Patient has been eating well at home. ER Course: Azithromycin 500mg per PEG, Ceftriaxone 1gm, Xopenex, NSS x 1L Allergies Allergy/AdvReac Type Severity Reaction Status Date / Time phenobarbital AdvReac Intermediate depresssed Verified 10/17/20 21:58 Home Medications Medication Instructions Recorded Confirmed Type diazepam 5 mg PO BID 11/14/18 10/17/20 History lamotrigine [Lamictal] 100 mg PO BIDM 11/14/18 10/17/20 History magnesium oxide 200 mg PO Q2D 11/14/18 10/17/20 History magnesium oxide 400 mg PO Q2D 11/14/18 10/17/20 History multivitamin 1 tab PO QAM 11/14/18 10/17/20 History carbamazepine [Tegretol] 400 mg PO QPM 01/15/19 10/17/20 History divalproex 625 mg PO BID 01/15/19 10/17/20 History carbamazepine [Tegretol] 200 mg PO QAM 12/22/19 10/17/20 History guaifenesin 600 mg PO BID 12/22/19 10/17/20 History pseudoephedrine HCl 30 mg tablet 30 mg PO DAILY PRN 01/29/20 10/17/20 History oxybutynin chloride 10 mg 10 mg PO DAILY PRN tab 08/16/20 10/17/20 History tablet,extended release 24 hr levothyroxine 200 mcg tablet 200 mcg PO DAILY #30 tab 09/07/20 10/17/20 Rx docusate sodium [Colace] 100 mg PO DAILY 10/17/20 10/17/20 History ibuprofen 400 - 600 mg PO UD PRN 10/17/20 10/17/20 History levalbuterol HCl 0.63 mg INHALATION Q8 PRN 10/17/20 10/17/20 History Past Med/Surg History Medical History (Updated 10/17/20 @ 23:05 by Carrie Kay DO) Chronic constipation Gastrointestinal tube present Generalized epilepsy (09/22/11) Leeroy filter in place 2015 -Placed after back surgery prophylactically Mental retardation Surgical History Difficult ventilator weaning 2015 - post op back surgery History of ankle surgery left ankle History of back surgery 2014 History of cardiac cath [place] 2015 Hx of hysterectomy, total 2009 Family History Other No pertinent family history in first degree relatives Social History Smoking Status: Never smoker Second Hand Exposure: No; Hx Alcohol Use: No Hx Substance Use: No Preferred Language: Korean Communication Ability: Unable 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 Technician Required: No Beliefs That Will Affect Care: None Current Living Situation: Parent Feels Safe at Home: Yes Assistive Devices: Mechanical Lift Review of Systems Review of Systems: All systems reviewed & are unremarkable except as noted in HPI & below ROS obtained by parents as patient is nonverbal Physical Exam Physical Exam: General: patient resting comfortably, NAD, non-toxic in appearance, nonverbal, following commands Skin: warm, dry, intact, no rashes or lesions, no breakdown HEENT: NC/AT, PERRL, anicteric sclera, conjunctiva without injection, external ear normal to inspection and nontender, nares patent, moist mucus membranes, dentition intact, no oropharyngeal lesions, neck supple, no LAD, no thyromegaly, no JVD, tracheostomy in place - site is clean with no bleeding/drainage/erythema, 28% trach collar Heart: +S1/S2, regular, no m/r/g Lungs: equal air entry bilaterally, scattered wheezing, no rales/rhonchi Abd: +BS, soft, NT/ND, no masses/organomegaly/ascites, PEG tube in place, site clean with no bleeding/drainage/erythema, suprapubic catheter in place, site clean Ext: warm, 2+ pulses in UE/LE bilaterally, no clubbing/cyanosis or edema Neuro: paraplegia s/p fall Results & Data Results & Data ([facility]) Vital Signs (Past 12 Hours) Vital Signs Temp Pulse Pulse Resp BP BP Pulse Ox 10/17/20 21:27 77 20 94 10/17/20 20:20 91 10/17/20 20:06 18 93 10/17/20 19:45 75 22 147/82 H 91 10/17/20 19:33 92 10/17/20 19:32 36.4 C L 75 24 157/94 H 92 10/17/20 18:44 74 91 Laboratory Results Lab Results 10/17/20 10/17/20 10/17/20 Range/Units 19:42 20:36 20:36 WBC 4.94 (4.8-10.8) K/uL RBC 3.75 L (4.2-5.4) M/uL Hgb 11.9 L (12.0-16.0) g/dL Hct 33.0 L (37-47) % MCV 88.0 (80-100) fL MCH 31.7 (25-34) pg MCHC 36.1 H (32-36) g/dL RDW Std Deviation 47.6 H (36.4-46.3) fL RDW Coeff of Nazanin 14.6 H (11.5-14.5) % Plt Count 113 L (130-400) K/uL MPV 12.2 H (7.4-10.4) fL Immature Gran % (Auto) 1.8 % Neut % (Auto) 71.2 % Lymph % (Auto) 14.4 % [place] % (Auto) 12.6 % Eos % (Auto) 0.0 % Baso % (Auto) 0.0 % Neut # (Auto) 3.52 (1.4-6.5) K/uL Lymph # (Auto) 0.71 L (1.2-3.4) K/uL [place] # (Auto) 0.62 H (0.11-0.59) K/uL Eos # (Auto) 0.00 (0-0.5) K/uL Baso # (Auto) 0.00 (0-0.2) K/uL Immature Gran # (Auto) 0.09 H (0.00-0.02) K/uL Platelet Estimate Decreased L (Normal) Echinocytes 1+ PT 10.8 (9.0-12.0) Seconds INR 1.0 (0.9-1.1) APTT 40.7 H (21.0-31.0) Seconds PTT Ratio 1.5 Sodium 119 L* (136-145) mmol/L Potassium 4.9 (3.5-5.1) mmol/L Chloride 88 L (98-107) mmol/L Carbon Dioxide 26 (21-32) mmol/L Anion Gap 4.0 (3-11) BUN 8 (7-18) mg/dl Creatinine 0.25 L (0.6-1.2) mg/dl Est Cr Clr Drug Dosing 275.7 ml/min Est GFR ( Amer) > 150.0 Est GFR (Non-Af Amer) 143.8 BUN/Creatinine Ratio 32.7 H (10-20) Glucose 88 (70-99) mg/dl Lactate (0.4-2.0) mmol/L Calcium 8.0 L (8.5-10.1) mg/dl Magnesium 1.9 (1.8-2.4) mg/dl Total Bilirubin 0.2 (0.2-1) mg/dl AST 31 (15-37) U/L ALT 23 (12-78) U/L Alkaline Phosphatase 119 H (45-117) U/L Troponin I < 0.015 (0-0.045) ng/ml Total Protein 5.8 L (6.4-8.2) gm/dl Albumin 2.2 L (3.4-5.0) gm/dl Globulin 3.6 (2.5-4.0) gm/dl Albumin/Globulin Ratio 0.6 L (0.9-2) Urine Color Urine Appearance (Clear) Urine pH (4.5-7.5) Ur Specific Howard (1.000-1.030) Urine Protein (Negative) Urine Glucose (UA) (Negative) Urine Ketones (Negative) Urine Blood (Negative) Urine Nitrite (Negative) Urine Bilirubin (Negative) Urine Urobilinogen (Negative) Ur Leukocyte Esterase (Negative) Urine WBC (Auto) (0-5) /hpf Urine RBC (Auto) (0-4) /hpf U Hyaline Cast (Auto) (0-5) /lpf U Epithel Cells (Auto) (0-5) /lpf Urine Bacteria (Auto) (Negative) Ur Random Sodium mmol/L 10/17/20 10/17/20 10/17/20 Range/Units 20:36 21:57 21:57 WBC (4.8-10.8) K/uL RBC (4.2-5.4) M/uL Hgb (12.0-16.0) g/dL Hct (37-47) % MCV (80-100) fL MCH (25-34) pg MCHC (32-36) g/dL RDW Std Deviation (36.4-46.3) fL RDW Coeff of Nazanin (11.5-14.5) % Plt Count (130-400) K/uL MPV (7.4-10.4) fL Immature Gran % (Auto) % Neut % (Auto) % Lymph % (Auto) % [place] % (Auto) % Eos % (Auto) % Baso % (Auto) % Neut # (Auto) (1.4-6.5) K/uL Lymph # (Auto) (1.2-3.4) K/uL [place] # (Auto) (0.11-0.59) K/uL Eos # (Auto) (0-0.5) K/uL Baso # (Auto) (0-0.2) K/uL Immature Gran # (Auto) (0.00-0.02) K/uL Platelet Estimate (Normal) Echinocytes PT (9.0-12.0) Seconds INR (0.9-1.1) APTT (21.0-31.0) Seconds PTT Ratio Sodium 119 L* (136-145) mmol/L Potassium (3.5-5.1) mmol/L Chloride (98-107) mmol/L Carbon Dioxide (21-32) mmol/L Anion Gap (3-11) BUN (7-18) mg/dl Creatinine (0.6-1.2) mg/dl Est Cr Clr Drug Dosing ml/min Est GFR ( Amer) Est GFR (Non-Af Amer) BUN/Creatinine Ratio (10-20) Glucose (70-99) mg/dl Lactate 0.7 (0.4-2.0) mmol/L Calcium (8.5-10.1) mg/dl Magnesium (1.8-2.4) mg/dl Total Bilirubin (0.2-1) mg/dl AST (15-37) U/L ALT (12-78) U/L Alkaline Phosphatase (45-117) U/L Troponin I (0-0.045) ng/ml Total Protein (6.4-8.2) gm/dl Albumin (3.4-5.0) gm/dl Globulin (2.5-4.0) gm/dl Albumin/Globulin Ratio (0.9-2) Urine Color Yellow Urine Appearance Clear (Clear) Urine pH 7.0 (4.5-7.5) Ur Specific Howard 1.008 (1.000-1.030) Urine Protein Negative (Negative) Urine Glucose (UA) Negative (Negative) Urine Ketones Negative (Negative) Urine Blood 1+ H (Negative) Urine Nitrite Positive A (Negative) Urine Bilirubin Negative (Negative) Urine Urobilinogen Negative (Negative) Ur Leukocyte Esterase 1+ H (Negative) Urine WBC (Auto) 5-10 H (0-5) /hpf Urine RBC (Auto) 0-4 (0-4) /hpf U Hyaline Cast (Auto) 0 (0-5) /lpf U Epithel Cells (Auto) 10-20 H (0-5) /lpf Urine Bacteria (Auto) 1+ H (Negative) Ur Random Sodium mmol/L 10/17/20 Range/Units 21:57 WBC (4.8-10.8) K/uL RBC (4.2-5.4) M/uL Hgb (12.0-16.0) g/dL Hct (37-47) % MCV (80-100) fL MCH (25-34) pg MCHC (32-36) g/dL RDW Std Deviation (36.4-46.3) fL RDW Coeff of Nazanin (11.5-14.5) % Plt Count (130-400) K/uL MPV (7.4-10.4) fL Immature Gran % (Auto) % Neut % (Auto) % Lymph % (Auto) % [place] % (Auto) % Eos % (Auto) % Baso % (Auto) % Neut # (Auto) (1.4-6.5) K/uL Lymph # (Auto) (1.2-3.4) K/uL [place] # (Auto) (0.11-0.59) K/uL Eos # (Auto) (0-0.5) K/uL Baso # (Auto) (0-0.2) K/uL Immature Gran # (Auto) (0.00-0.02) K/uL Platelet Estimate (Normal) Echinocytes PT (9.0-12.0) Seconds INR (0.9-1.1) APTT (21.0-31.0) Seconds PTT Ratio Sodium (136-145) mmol/L Potassium (3.5-5.1) mmol/L Chloride (98-107) mmol/L Carbon Dioxide (21-32) mmol/L Anion Gap (3-11) BUN (7-18) mg/dl Creatinine (0.6-1.2) mg/dl Est Cr Clr Drug Dosing ml/min Est GFR ( Amer) Est GFR (Non-Af Amer) BUN/Creatinine Ratio (10-20) Glucose (70-99) mg/dl Lactate (0.4-2.0) mmol/L Calcium (8.5-10.1) mg/dl Magnesium (1.8-2.4) mg/dl Total Bilirubin (0.2-1) mg/dl AST (15-37) U/L ALT (12-78) U/L Alkaline Phosphatase (45-117) U/L Troponin I (0-0.045) ng/ml Total Protein (6.4-8.2) gm/dl Albumin (3.4-5.0) gm/dl Globulin (2.5-4.0) gm/dl Albumin/Globulin Ratio (0.9-2) Urine Color Urine Appearance (Clear) Urine pH (4.5-7.5) Ur Specific [place] (1.000-1.030) Urine Protein (Negative) Urine Glucose (UA) (Negative) Urine Ketones (Negative) Urine Blood (Negative) Urine Nitrite (Negative) Urine Bilirubin (Negative) Urine Urobilinogen (Negative) Ur Leukocyte Esterase (Negative) Urine WBC (Auto) (0-5) /hpf Urine RBC (Auto) (0-4) /hpf U Hyaline Cast (Auto) (0-5) /lpf U Epithel Cells (Auto) (0-5) /lpf Urine Bacteria (Auto) (Negative) Ur Random Sodium 20 mmol/L Diagnostic Findings CXR by my interpretation - tracheostomy in place with trach collar, mild airspace opacities noted left lung field, nmore pronounced than prior, ?small effusion on left ECG Additional Comments: EKG with SR at 73bpm, 1st degree AV block with WC=342, JAX=455, PLg=158, ST flattening in II, III, aVF. V4-V6 Code Status & VTE Plan VTE Prophylaxis Plan VTE Prophylaxis will be ordered: Yes PG Care Time/CCT Total # of Minutes Spent Total Time Spent with Patient: Total time spent is greater than 50% in co ordination of care (as documented) at patient's floor/unit and/or counseling patient: Coding Level of Care Code 00298 Initial Inpt Care Lvl 3 Diagnoses COVID-19 U07.1 Pneumonia J18.9 Laterality: unspecified laterality Lung location: unspecified part of lung Pneumonia type: due to unspecified organism Acute hyponatremia E87.1 Generalized epilepsy G40.309 Hypothyroid E03.9 Hypothyroidism type: unspecified (1) Pneumonia Laterality: unspecified laterality Lung location: unspecified part of lung Pneumonia type: due to unspecified organism Qualified Code(s): J18.9 - Pneumonia, unspecified organism (2) Hypothyroid Hypothyroidism type: unspecified Qualified Code(s): E03.9 - Hypothyroidism, unspecified
[2020-10-18] MEDS ORDERED: ACETAMINOPHEN 325 MG TAB PO PRN (01:12)
[2020-10-18] MEDS ORDERED: DEXAMETHASONE SOD INJ 10 MG/ML VIAL IV SCH (01:12)
[2020-10-18] MEDS: dexAMETHasone 6 MG in SYRINGE 0 ML IV SCH ×2 (02:35→08:56)
[2020-10-18 02:55] LABS: C Reactive Protein 20.1 mg/dl (0-0.29); Ferritin 823.9 ng/ml (8-388); Phosphorus 3.7 mg/dl (2.5-4.9)
[2020-10-18 02:56] LABS: Hematocrit (blood only) 32.2 % (37-47); Hemoglobin 11.6 g/dL (12.0-16.0); Mean Corpuscular Volume 88.7 fL (80-100); RDW Coefficient of Variation 14.7 % (11.5-14.5); RDW Standard Deviation 47.9 fL (36.4-46.3); Red Blood Count 3.63 M/uL (4.2-5.4); White Blood Count 3.67 K/uL (4.8-10.8)
[2020-10-18 03:13] LABS: D Dimer 710 ug/L FEU (0-500)
[2020-10-18 03:17] LABS: Mean Platelet Volume 10.1 fL (7.4-10.4); Platelet Count 64 K/uL (130-400)
[2020-10-18 03:19] LABS: Alanine Aminotransferase 27 U/L (12-78); Albumin Level 2.4 gm/dl (3.4-5.0); Aspartate Aminotransferase 35 U/L (15-37); BUN Creatinine Ratio 35.8 (10-20); Bilirubin Direct 0.1 mg/dl (0-0.2); Blood Urea Nitrogen 6 mg/dl (7-18); Calcium 8.4 mg/dl (8.5-10.1); Carbon Dioxide 28 mmol/L (21-32); Chloride 88 mmol/L (98-107); Creatinine Clr Calc Pharmacy 386.1 ml/min; Est GFR (African American) > 150.0; Est GFR (Non-African American) > 150.0; Glucose 80 mg/dl (70-99); Potassium 4.8 mmol/L (3.5-5.1); Sodium 121 mmol/L (136-145)
[2020-10-18 03:21] LABS: Basophils # (auto) 0.01 K/uL (0-0.2); Basophils % (auto) 0.3 %; Echinocytes 1+; Immature Granulocytes % (auto) 2.7 %; Lymphocytes # (auto) 0.54 K/uL (1.2-3.4); Lymphocytes % (auto) 14.7 %; Monocytes # (auto) 0.47 K/uL (0.11-0.59); Monocytes % (auto) 12.8 %; Neutrophils # (auto) 2.55 K/uL (1.4-6.5); Neutrophils % (auto) 69.5 %
[2020-10-18 03:22] LABS: Alkaline Phosphatase 137 U/L (45-117); Bilirubin,Total 0.4 mg/dl (0.2-1); Total Protein 5.8 gm/dl (6.4-8.2)
--- NOTE | 2020-10-18 07:42 | XRay Report ---
XR chest 1V portable CLINICAL HISTORY: Sepsis. COMPARISON STUDY: Chest radiograph December 28, 2019. FINDINGS: Tracheostomy and gastrostomy tubes are noted. Elevation of the right hemidiaphragm is uncha nged. There is no pneumothorax. Bibasilar consolidation is present. Suspected right upper lung airspa ce opacity is noted. Suspected small left pleural effusion is noted. There is mild interstitial thick ening. IMPRESSION: Bibasilar consolidation and right upper lung airspace opacity. The findings favor multifocal pneumoni a. Radiographic follow-up is recommended. ACT 112: Negative or not required by law. Electronically signed by: Mata Hughes M.D. 10/18/2020 7:41 AM
[2020-10-18] MEDS ORDERED: lamoTRIgine 100 MG TAB PO SCH (08:00)
[2020-10-18] MEDS: ENOXAPARIN INJ 40 MG/0.4 ML SYR SQ SCH ×2 (08:56→20:53)
[2020-10-18] MEDS ORDERED: DIVALPROEX SODIUM SPRINKLE 125 MG CAP PO SCH (09:00)
[2020-10-18] MEDS ORDERED: diazePAM 5 MG TABLET PO SCH (09:00)
[2020-10-18] MEDS ORDERED: guaiFENesin 600 MG TABCR PO SCH (09:00)
[2020-10-18] MEDS ORDERED: carBAMazepine 200 MG TABLET PO SCH ×3 (09:00→21:00)
[2020-10-18] MEDS ORDERED: DOCUSATE SODIUM 100 MG CAP PO SCH (09:00)
--- NOTE | 2020-10-18 10:44 | Pulmonary Consultation ---
Date of Consultation October 18, 2020 Assessment & Plan (1) Pneumonia: Impression 50-year-old female with severe developmental delay who is tracheostomy dependent admitted with COVID-19 pneumonia and hypoxemia. She has infiltrates in the left lung and a chronically elevated right hemidiaphragm likely contributing to respiratory compromise. Recommendations: 1. Community-acquired pneumonia: Procalcitonin on presentation was 0.1 which is normal. She has been initiated on Rocephin and a azithromycin which seems reasonable to treat her for community-acquired pneumonia currently. Would decrease azithromycin to 250 mg via PEG tube on a daily basis. Rocephin can be decreased to 1 g every 24 hours. 2. COVID-19: The patient is 10 days out from her infection. It is unlikely that convalescent plasma is going to have any significant impact this far out as the patient likely already has her own neutralizing antibodies in place. Dexamethasone does seem reasonable to complete and would recommend continued course. Agree that the patient is not really candidate for remdesivir this far into her disease. 3. Hypoxemic respiratory failure: Continue supplemental oxygen via trach stefani ar. I would be reluctant to place the patient on a mechanical ventilator and should her condition worsen, discussion should be had with the patient's family regarding escalation of care. We are available to assist in management of this patient if needed but at this point in time will follow peripherally. Please call us if we can be of additional questions. Laterality: unspecified laterality Lung location: unspecified part of lung Pneumonia type: due to unspecified organism Qualified Code(s): J18.9 - Pneumonia, unspecified organism (2) Hypoxia: (3) COVID-19: History of Present Illness Attending Physician: Andre Curiel MD History of Present Illness Asked by hospitalist to evaluate this patient admitted with COVID-19 pneumonia. History is obtained from review of the electronic medical record. Due to COVID- 19 restrictions and desired to preserve PPE and decrease exposure to staff, interview and exam of the patient was not conducted. Please refer to the admission H&P. Patient is a 50-year-old female with a history of tracheostomy PEG tube and suprapubic catheter due to significant developmental delay. Patient's parents apparently tested positive for COVID-19 approximately 2 weeks ago. Patient had a positive Covid test 10 days ago and had been monitoring at home however over the last 4 days she developed increasing fatigue somnolence and decreasing levels of consciousness. She is not normally on oxygen but caregivers have been monitoring oxygen saturations and found them to be slightly decreased. This prompted evaluation in the emergency room. In ER course she received ceftriaxone and azithromycin and a liter of saline and was admitted by the hospitalist. The hospitalist have ordered convalescent plasma as well as dexamethasone. Remdesivir was held as the patient is 10 days out from her po sitive test. Allergies Allergy/AdvReac Type Severity Reaction Status Date / Time phenobarbital AdvReac Intermediate depresssed Verified 10/17/20 21:58 Home Medications Medication Instructions Recorded Confirmed Type diazepam 5 mg PO BID 11/14/18 10/17/20 History lamotrigine [Lamictal] 100 mg PO BIDM 11/14/18 10/17/20 History magnesium oxide 200 mg PO Q2D 11/14/18 10/17/20 History magnesium oxide 400 mg PO Q2D 11/14/18 10/17/20 History multivitamin 1 tab PO QAM 11/14/18 10/17/20 History carbamazepine [Tegretol] 400 mg PO QPM 01/15/19 10/17/20 History divalproex 625 mg PO BID 01/15/19 10/17/20 History carbamazepine [Tegretol] 200 mg PO QAM 12/22/19 10/17/20 History guaifenesin 600 mg PO BID 12/22/19 10/17/20 History pseudoephedrine HCl 30 mg tablet 30 mg PO DAILY PRN 01/29/20 10/17/20 History oxybutynin chloride 10 mg 10 mg PO DAILY PRN tab 08/16/20 10/17/20 History tablet,extended release 24 hr levothyroxine 200 mcg tablet 200 mcg PO DAILY #30 tab 09/07/20 10/17/20 Rx docusate sodium [Colace] 100 mg PO DAILY 10/17/20 10/17/20 History ibuprofen 400 - 600 mg PO UD PRN 10/17/20 10/17/20 History levalbuterol HCl 0.63 mg INHALATION Q8 PRN 10/17/20 10/17/20 History Patient History Medical History (Updated 10/17/20 @ 23:05 by Carrie Kay DO) Chronic constipation Gastrointestinal tube present Generalized epilepsy (10/28/11) Leeroy filter in place 2015 -Placed after back surgery prophylactically Mental retardation Surgical History Difficult ventilator weaning 2015 - post op back surgery History of ankle surgery left ankle History of back surgery 2015 History of cardiac cath [place] 2015 Hx of hysterectomy, total 2009 Family History Other No pertinent family history in first degree relatives Social History Smoking Status: Never smoker Second Hand Exposure: No; Hx Alcohol Use: No Hx Substance Use: No Preferred Language: Telugu Communication Ability: Impaired Microfilm Equipment 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 Please refer to the admission H&P from the hospitalist. Results & Data Results & Data ([facility]) Vital Signs (Past 12 Hours) Vital Signs Temp Pulse Pulse Pulse Resp BP BP 10/18/20 09:10 36.8 C 102 H 18 158/96 H 10/18/20 01:12 36.4 C L 79 22 136/84 10/18/20 00:15 69 145/86 H 10/18/20 00:00 72 132/103 H 10/17/20 23:45 74 132/77 10/17/20 23:30 77 142/86 H 10/17/20 23:15 70 117/84 10/17/20 23:00 70 131/73 10/17/20 22:45 69 126/75 Pulse Ox 10/18/20 09:10 92 10/18/20 01:12 90 10/18/20 00:15 95 10/18/20 00:00 91 10/17/20 23:45 92 10/17/20 23:30 92 10/17/20 23:15 95 10/17/20 23:00 94 10/17/20 22:45 94 Laboratory Results 10/18/20 02:38 10/18/20 02:38 Diagnostic Findings Chest x-ray was independently reviewed from 10/17/2020. Tracheostomy is in place. There appears to be elevation of the right hemidiaphragm. Diffuse parenchymal infiltrates are noted in the left lung. These appear new compared to prior film from December 2019 PG Care Time/CCT Total # of Minutes Spent Total Time Spent with Patient: Total time spent is greater than 50% in coordination of care (as documented) at patient's floor/unit and/or counseling patient: Coding Level of Care Code 42276 Inpt Consult Level 4 Diagnoses Pneumonia J18.9 Laterality: unspecified laterality Lung location: unspecified part of lung Pneumonia type: due to unspecified organism Hypoxia R09.02 COVID-19 U07.1
--- NOTE | 2020-10-18 12:46 | Hospitalist Progress Note ---
Date of Service October 18, 2020 Assessment & Plan (1) COVID-19: Diagnosed on 10/08. - Convalescent plasma ordered on 10/17/2020. Pending arrival. - Continue dexamethasone 6 mg IV daily - Will hold off on remdesevir therapy for now - patient is 10 days out from her positive test. - Continue Lovenox 40mg BID - Continue Levalbuterol nebs - Continue supplemental O2 by trach collar. - Continue Robitussin - Will consult flight operation coordinator, Dr. Madrigal. (2) Pneumonia: Patient afebrile at present. No increase or purulent secretions per mother. Procalcitonin on 10/17 was negative. - Continue ceftriaxone and Azithromycin for now; could taper/stop if pulmonology agrees. (3) Acute hyponatremia: [id number]. Patient has had this worked up in the past - no clear explanation, thought possibly secondary to medication effects. Urine would indicate low solute as her urine osmolality is only 175. - 1L NSS given in the ED. - Monitor Na levels - Nutrition consult to help improve protein intake. (4) Generalized epilepsy: Mother reports last seizure that she witnessed was on Sunday; however, I have some concern for seizure activity with eye movements. Follows with Dr. Guevara otoole. - Continue home medications, Lamictal 100mg po BID, Divalproex 625mg po BID, Tegretol 200mg po qAM and 400mg po qPM - Will get levels of all meds - Neurology consult and EEG (5) Hypothyroid: Chronic. TSH was 2.9 in 08/2020. - Continue Synthroid 200mcg po daily put in to PEG tube. (6) DVT prophylaxis: Lovenox 40 mg SQ BID per Covid protocol Admission and Anticipated Discharge Date Admission Date: October 17, 2020 Subjective No responses for me today. Review of Systems Review of Systems: Unobtainable due to cognitive status Physical Exam Constitutional: + physical limitations and + frail appearing Eyes: EOM intact bilaterally (Some reflexive eye movements); no conjunctival abnormality ENMT: external ear and nose normal, oropharynx normal Neck: trachea midline, no thyromegaly + tracheostomy present Respiratory: + labored breathing; no respiratory distress Auscultation: + crackles Cardiovascular: Rate/Rhythm: regular rhythm and + tachycardic Heart Sounds: normal S1 and normal S2 Extremities: + edema (Very mild on hands.) Gastrointestinal (Abdomen): Inspection/Auscultation: + abdomen abnormal to inspection (PEG tube) and abdomen not distended Percussion/Palpation: abdomen nontender Musculoskeletal: no cyanosis or clubbing, extremities motor strength 5/5 Skin: no rashes, warm and dry Neurologic: awake; + does not move all extremities Psychiatric: Orientation: cooperative; + not alert and + not oriented to person Results & Data Results & Data ([facility]) Vital Signs (Past 12 Hours) Vital Signs Temp Pulse Pulse Resp BP Pulse Ox 10/18/20 09:10 36.8 C 102 H 18 158/96 H 92 10/18/20 01:12 36.4 C L 79 22 136/84 90 PG Care Time/CCT Total # of Minutes Spent Total Time Spent with Patient: Total time spent is greater than 50% in coordination of care (as documented) at patient's floor/unit and/or counseling patient: Coding Level of Care Code 59084 Subseq Hosp Care Lvl 3 Diagnoses COVID-19 U07.1 Pneumonia J18.9 Laterality: unspecified laterality Lung location: unspecified part of lung Pneumonia type: due to unspecified organism Acute hyponatremia E87.1 Generalized epilepsy G40.309 Hypothyroid E03.9 Hypothyroidism type: unspecified DVT prophylaxis Z29.9 (1) Pneumonia Laterality: unspecified laterality Lung location: unspecified part of lung Pneumonia type: due to unspecified organism Qualified Code(s): J18.9 - Pneumonia, unspecified organism (2) Hypothyroid Hypothyroidism type: unspecified Qualified Code(s): E03.9 - Hypothyroidism, unspecified
[2020-10-18] MEDS ORDERED: Nursing to Pharmacy Communication SCH ×3 (13:45→21:00)
[2020-10-18 14:38] LABS: Carbamazepine Tegretol 17.3 mcg/ml (4-12)
[2020-10-18] MEDS: TUBE FEEDING WATER FLUSH PEG SCH ×3 (16:13→23:28)
[2020-10-18] MEDS: PEPTAMEN INTENSE VHP 1.0 CAL 1,000 ML BAG PEG SCH (16:17)
[2020-10-18] MEDS ORDERED: levETIRAcetam 1,000 MG in 0.9 % SODIUM CHLORIDE 100 ML IV ONE (17:30)
[2020-10-18] MEDS: guaiFENesin 600 MG TABCR PO SCH (18:07)
[2020-10-18] MEDS: DIVALPROEX SODIUM SPRINKLE 125 MG CAP PO SCH (18:07)
[2020-10-18] MEDS: lamoTRIgine 100 MG TAB PO SCH (18:08)
[2020-10-18] MEDS: diazePAM 5 MG TABLET PO SCH (18:08)
[2020-10-18] MEDS: AZITHROMYCIN 500 MG in DEXTROSE 5% 250 ML IV SCH (20:53)
[2020-10-18] MEDS ORDERED: LEVOTHYROXINE SODIUM 200 MCG TABLET PO SCH (21:00)
[2020-10-18] MEDS ORDERED: levETIRAcetam 500 MG TAB PO SCH (21:00)
--- NOTE | 2020-10-18 21:05 | Consultation Report ---
DATE OF CONSULTATION: 10/18/2020 This patient was seen via video. Her mother was available and assisted in physical exam. HISTORY OF PRESENT ILLNESS: The patient is a 50-year-old female with a history of mental retardation and secondary seizure disorder. She also has a traumatic myelopathy. She has a chronic trach. On this background, the patient was admitted on 10/17/2020. Her mother, father and the patient herself had been diagnosed with COVID, I believe the patient tested positive about 10 days prior. Her mother brought her in on the day of admission because of 4 days of worsening O2 sat as well as somnolence and fatigue. She was mildly hypoxic on arrival to the Emergency Room 91% on room air, which improved with placement of a trach collar, currently at 28% FIO2. The patient was afebrile, hemodynamically stable and nontoxic in appearance according to the admission H and P. Mother indicates that she has had poorly controlled seizures. She has at least 1 generalized seizure a day, which sounds as if it consists of pupillary dilatation and posturing, which was brief, lasting seconds to minutes followed by postictal confusion. The seizure frequency had been unchanged until recently. A CAT scan was done 8 weeks ago because of some minor changes in the seizures, although it sounds like perhaps they were mildly longer or longer postictal period, but no new features. Her mother indicates that since she has been at [facility], frequently throughout the day, she will have head and eye deviation to the left and perhaps some twitching of her cheek and twitching of both hands. She can respond through these events. Her anticonvulsants have been continued and these include Depakote Sprinkles 625 at 7:30 a.m. and 1800 hours, Valium 5 mg at 7:30 a.m. and 1800 hours, Tegretol 200 mg a day at 7:30, Tegretol 400 mg at 1800 hours, Lamictal 100 mg at 7:30 and 1800 hours. A recent increase in the Lamictal to 150 mg twice a day was not tolerated. The patient apparently took Dilantin long-term, but it was discontinued a long time ago due to gingival hypertrophy. Seizure control was fairly good on it and it deteriorated in the transition away from Dilantin. Restarting it briefly caused an increase in her gingival hypertrophy and it was discontinued. Keppra has been used in the past according to the mother, although I could not find it on her outpatient list. She indicates it did not entirely controlled her seizures. THE ONLY ANTICONVULSANT WHICH SHE HAD ADVERSE EFFECTS TO WAS PHENOBARBITAL, ON WHICH SHE WAS DEPRESSED. Her laboratory data on this admission is notable for hyponatremia, currently 121 and on admission 119, it looks as if the patient typically runs 124-127. Her white count on admission was 3.6, hemoglobin 11.6, platelet count 64 down from 113 yesterday. Her sed rate is 38. D-dimer is 710, PTT 40.7. The patient is on Lovenox on this admission. Osmolality 245, calcium 8.4. CRP 20, albumin 2.4. Her Depakote level this morning was 92. Tegretol non-trough 17.3. Lamictal not available. PAST MEDICAL HISTORY: As above. She also has a PEG tube and a suprapubic catheter, chronic constipation, [place] filter in place, MR. The patient has a history of back surgery, ankle surgery, cardiac cath, total hysterectomy. SOCIAL HISTORY: Nonsmoker, nondrinker. Lives with her parents. CURRENT MEDICATIONS: Ceftriaxone, azithromycin, dexamethasone, levothyroxine, Lovenox 40 mg subQ q.12, Lamictal 100 mg b.i.d., Depakote 625 b.i.d., Mucinex, Valium 5 mg b.i.d., Colace 100 mg, Tegretol 200 in the morning and 400 in the evening. PHYSICAL EXAMINATION: VITAL SIGNS: Blood pressure 123/83, pulse was 102, O2 sat is 88 with a trach collar. NEUROLOGIC: The patient is lying in bed. She is noncommunicative. She has episodic head and eye deviation to the left. There is minor twitching of her left upper lip and left hand. This lasts seconds to a minute. During the time of her head and eye deviation and twitching, she follows some simple commands with her right hand. She will squeeze her mother's hand. When the head and eye deviation seized, she is more alert and responsive, but is responsive throughout the episode. IMPRESSION: This patient appears to be having frequent simple partial seizures. This is not her typical pattern of seizure. PLAN: I had advised Dr. Curiel to give the patient Keppra 1000 mg followed by 500 mg b.i.d. and to obtain a stat EEG. EEG was not performed. I would recommend a gradual treatment of the patient's hyponatremia. To a certain extent, this has been chronic, but it is lower than it typically runs. This is likely related to Tegretol use. The infection has likely lowered the patient's seizure threshold. If she is not rapidly improving, would recommend a followup CT of the head. An EEG definitely needs to be performed in the morning provided her episodes are diminished. We will follow with you.
--- NOTE | 2020-10-18 21:42 | Electrocardiogram Report ---
Test Reason : Blood Pressure : / mmHG Vent. Rate : 073 BPM Atrial Rate : 073 BPM P-R Int : 244 ms QRS Dur : 102 ms QT Int : 376 ms P-R-T Axes : 028 069 -56 degrees QTc Int : 414 ms Sinus rhythm with 1st degree A-V block Abnormal ECG When compared with ECG of 22-DEC-2019 21:38, [place] interval has increased T wave inversion more evident in Inferolateral leads Confirmed by Saul Valverde ([id number]) on 10/18/2020 9:41:56 PM Referred By: REFERRED SELF Confirmed By:Saul Valverde
[2020-10-18] MEDS: cefTRIAXone SODIUM 2,000 MG in DEXTROSE 5% 50 ML IV SCH (23:28)
[2020-10-19] MEDS: TUBE FEEDING WATER FLUSH PEG SCH ×2 (02:15→05:53)
[2020-10-19 06:26] LABS: Hematocrit (blood only) 32.2 % (37-47); Hemoglobin 11.5 g/dL (12.0-16.0); Mean Corpuscular Hemoglobin 31.9 pg (25-34); Mean Corpuscular Hgb Conc 35.7 g/dL (32-36); Mean Corpuscular Volume 89.2 fL (80-100); Nucleated RBC # (auto) 0.02 K/uL (0-0); Nucleated RBC % (auto) 0.4 %; RDW Coefficient of Variation 14.7 % (11.5-14.5); RDW Standard Deviation 48.2 fL (36.4-46.3); Red Blood Count 3.61 M/uL (4.2-5.4); White Blood Count 4.26 K/uL (4.8-10.8)
[2020-10-19 06:28] LABS: Mean Platelet Volume 10.2 fL (7.4-10.4); Platelet Count 59 K/uL (130-400)
[2020-10-19 06:59] LABS: Albumin Level 2.3 gm/dl (3.4-5.0); BUN Creatinine Ratio 36.8 (10-20); Calcium 8.8 mg/dl (8.5-10.1); Creatinine Clr Calc Pharmacy 198.5 ml/min; Est GFR (African American) 149.2; Est GFR (Non-African American) 128.7; Magnesium 1.9 mg/dl (1.8-2.4); Potassium 4.6 mmol/L (3.5-5.1)
[2020-10-19 07:03] LABS: Carbamazepine Tegretol 17.8 mcg/ml (4-12)
[2020-10-19 07:04] LABS: Albumin Globulin Ratio 0.6 (0.9-2); Bilirubin,Total 0.2 mg/dl (0.2-1); Phosphorus 3.3 mg/dl (2.5-4.9); Total Protein 6.3 gm/dl (6.4-8.2)
[2020-10-19] MEDS ORDERED: carBAMazepine 200 MG TABLET PO SCH (07:30)
[2020-10-19] MEDS ORDERED: DOCUSATE SODIUM 100 MG CAP PO SCH (07:30)
[2020-10-19] MEDS: LEVALBUTEROL HCL 0.63 MG/3 ML NEB INH PRN ×2 (07:50→15:36)
[2020-10-19] MEDS: dexAMETHasone 6 MG in SYRINGE 0 ML IV SCH (07:54)
[2020-10-19] MEDS: diazePAM 5 MG TABLET PO SCH ×2 (07:54→19:21)
[2020-10-19] MEDS: ENOXAPARIN INJ 40 MG/0.4 ML SYR SQ SCH ×2 (07:58→19:21)
[2020-10-19] MEDS: DIVALPROEX SODIUM SPRINKLE 125 MG CAP PO SCH (08:29)
[2020-10-19] MEDS: lamoTRIgine 100 MG TAB PO SCH ×2 (08:30→19:21)
[2020-10-19] MEDS: guaiFENesin 600 MG TABCR PO SCH (08:31)
--- NOTE | 2020-10-19 09:37 | XRay Report ---
XR chest 1V portable CLINICAL HISTORY: Covid RESPIRATORY DIFFICULTY COMPARISON STUDY: 10/17/2020 FINDINGS: There is a tracheostomy tube unchanged in position. The cardiac and mediastinal contours re main stable. There is elevation of the right hemidiaphragmatic contour. There is blunting of the late ral costophrenic angles. There are bilateral pulmonary airspace opacities similar to the preceding st udy. No pneumothorax is visualized.[ IMPRESSION: No significant change from the prior study. Low lung volumes, elevation of the right sarah beth diaphragm, and bilateral pulmonary airspace opacities. ACT 112: Negative or not required by law. Electronically signed by: Russel Terrazas M.D. 10/19/2020 9:36 AM
--- NOTE | 2020-10-19 11:13 | Electroencephalogram ---
EEG Procedure Note Date of Service October 19, 2020 Start / End Times Start Time: 06:23 End Time: 06:43 Referring Physician Andre Curiel MD History A 50-year-old woman admitted with concern for seizures. EEG performed for evaluation of epileptiform activity. Home Medication List Medication Instructions Recorded Confirmed Type diazepam 5 mg PO BID 11/14/18 10/17/20 History lamotrigine [Lamictal] 100 mg PO BIDM 11/14/18 10/17/20 History magnesium oxide 200 mg PO Q2D 11/14/18 10/17/20 History magnesium oxide 400 mg PO Q2D 11/14/18 10/17/20 History multivitamin 1 tab PO QAM 11/14/18 10/17/20 History carbamazepine [Tegretol] 400 mg PO QPM 01/15/19 10/17/20 History divalproex 625 mg PO BID 01/15/19 10/17/20 History carbamazepine [Tegretol] 200 mg PO QAM 12/22/19 10/17/20 History guaifenesin 600 mg PO BID 12/22/19 10/17/20 History pseudoephedrine HCl 30 mg tablet 30 mg PO DAILY PRN 01/29/20 10/17/20 History oxybutynin chloride 10 mg 10 mg PO DAILY PRN tab 08/16/20 10/17/20 History tablet,extended release 24 hr levothyroxine 200 mcg tablet 200 mcg PO DAILY #30 tab 09/07/20 10/17/20 Rx docusate sodium [Colace] 100 mg PO DAILY 10/17/20 10/17/20 History ibuprofen 400 - 600 mg PO UD PRN 10/17/20 10/17/20 History levalbuterol HCl 0.63 mg INHALATION Q8 PRN 10/17/20 10/17/20 History Inpatient Medication List Acetaminophen (Acetaminophen 325 Mg Tab) 650 mg PO Q4H PRN PRN Reason: pain/fever Stop: 11/17/20 01:11 Last Admin: 10/18/20 02:35 Dose: 650 mg Documented by: [id number] Carbamazepine (Carbamazepine 200 Mg Tablet) 200 mg PO DAILY@0730 [facility] Stop: 11/18/20 07:29 Last Admin: 10/19/20 08:32 Dose: 200 mg Documented by: [id number] Carbamazepine (Carbamazepine 200 Mg Tablet) 400 mg PO DAILY@1800 [facility] Stop: 11/17/20 17:59 Last Admin: 10/18/20 18:09 Dose: 400 mg Documented by: [id number] Diazepam (Diazepam 5 Mg Tablet) 5 mg PO [facility] Stop: 11/17/20 17:59 Last Admin: 10/19/20 07:54 Dose: 5 mg Documented by: [id number] Admin: 10/18/20 18:08 Dose: 5 mg Documented by: [id number] Divalproex Sodium (Divalproex Sodium Sprinkle 125 Mg Cap) 625 mg PO [facility] Stop: 11/17/20 17:59 Last Admin: 10/19/20 08:29 Dose: 625 mg Documented by: [id number] Admin: 10/18/20 18:07 Dose: 625 mg Documented by: [id number] Docusate Sodium (Docusate Sodium 100 Mg Cap) 100 mg PO 30 [facility] Stop: 11/18/20 07:29 Last Admin: 10/19/20 07:57 Dose: 100 mg Documented by: [id number] Enoxaparin Sodium (Enoxaparin Inj 40 Mg/0.4 Ml Syr) 40 mg SQ Q12H [facility] Stop: 11/17/20 07:59 Last Admin: 10/19/20 07:58 Dose: 40 mg Documented by: [id number] Admin: 10/18/20 20:53 Dose: 40 mg Documented by: [id number] Admin: 10/18/20 08:56 Dose: 40 mg Documented by: [id number] Guaifenesin (Guaifenesin 600 Mg Tabcr) 600 mg PO [facility] Stop: 11/17/20 17:59 Last Admin: 10/19/20 08:31 Dose: 600 mg Documented by: [id number] Admin: 10/18/20 18:07 Dose: 600 mg Documented by: [id number] Ceftriaxone Sodium 2,000 mg/ (Dextrose) 70 mls @ 100 mls/hr IV Q24H [facility]; Protocol Stop: 10/25/20 21:59 Last Infusion: 10/19/20 00:10 Dose: 0 mls/hr Documented by: [id number] Admin: 10/18/20 23:28 Dose: 100 mls/hr Documented by: [id number] Azithromycin 500 mg/ Dextrose 255 mls @ 125 mls/hr IV Q24H [facility] Stop: 10/25/20 19:59 Last Infusion: 10/19/20 02:15 Dose: 0 mls/hr Documented by: [id number] Infusion: 10/19/20 00:10 Dose: 125 mls/hr Documented by: [id number] Infusion: 10/18/20 21:24 Dose: 0 mls/hr Documented by: [id number] Admin: 10/18/20 20:53 Dose: 125 mls/hr Documented by: [id number] Dexamethasone Sodium Phosphate (6 mg/ Syringe) 1.5 mls @ 1 mls/min IV DAILY [facility] Stop: 11/17/20 01:44 Last Admin: 10/19/20 07:54 Dose: 1 mls/min Documented by: [id number] Admin: 10/18/20 08:56 Dose: 1 mls/min Documented by: [id number] Admin: 10/18/20 02:35 Dose: 1 mls/min Documented by: [id number] Lamotrigine (Lamotrigine 100 Mg Tab) 100 mg PO 0730,1800 [facility] Stop: 11/17/20 17:59 Last Admin: 10/19/20 08:30 Dose: 100 mg Documented by: [id number] Admin: 10/18/20 18:08 Dose: 100 mg Documented by: [id number] Levalbuterol HCl (Levalbuterol Hcl 0.63 Mg/3 Ml Neb) 0.63 mg INH Q8 PRN PRN Reason: Wheezing Stop: 11/17/20 01:11 Last Admin: 10/19/20 07:50 Dose: 0.63 mg Documented by: [id number] Levetiracetam (Levetiracetam Soln 500 Mg/5 Ml Udp) 500 mg PO BID [facility] Stop: 11/17/20 21:14 Last Admin: 10/19/20 07:57 Dose: 500 mg Documented by: [id number] Admin: 10/18/20 22:12 Dose: 500 mg Documented by: [id number] Levothyroxine Sodium (Levothyroxine Sodium 200 Mcg Tablet) 200 mcg PO PM [facility] Stop: 11/17/20 20:59 Last Admin: 10/18/20 20:53 Dose: 200 mcg Documented by: [id number] Nutritional Formula (Peptamen Intense Vhp 1.0 [place] 1,000 Ml Bag) 1,000 ml PEG UD [facility]; Protocol Stop: 11/17/20 14:59 Last Admin: 10/18/20 16:17 Dose: 1,000 ml Documented by: [id number] Discontinued Medications Azithromycin (Azithromycin Susp 200 Mg/5 Ml 22.5 Ml Homepack) 500 mg PO NOW ONE Stop: 10/17/20 20:54 Last Admin: 10/17/20 21:44 Dose: 500 mg Documented by: [id number] Carbamazepine (Carbamazepine 200 Mg Tablet) 200 mg PO QAM [facility] Stop: 11/17/20 08:59 Last Admin: 10/18/20 08:55 Dose: 200 mg Documented by: [id number] Diazepam (Diazepam 5 Mg Tablet) 5 mg PO BID [facility] Stop: 11/17/20 08:59 Last Admin: 10/18/20 09:18 Dose: 5 mg Documented by: [id number] Divalproex Sodium (Divalproex Sodium Sprinkle 125 Mg Cap) 625 mg PO BID [facility] Stop: 11/17/20 08:59 Last Admin: 10/18/20 08:55 Dose: 625 mg Documented by: [id number] Docusate Sodium (Docusate Sodium 100 Mg Cap) 100 mg PO DAILY [facility] Stop: 11/17/20 08:59 Last Admin: 10/18/20 08:55 Dose: 100 mg Documented by: [id number] Guaifenesin (Guaifenesin 600 Mg Tabcr) 600 mg PO BID [facility] Stop: 11/17/20 08:59 Last Admin: 10/18/20 08:56 Dose: 600 mg Documented by: [id number] Sodium Chloride (Nss 1000ml) 1,000 mls @ 999 mls/hr IV .Q1H1M ONE Stop: 10/17/20 20:32 Last Infusion: 10/17/20 20:49 Dose: 0 mls/hr Documented by: [id number] Admin: 10/17/20 19:45 Dose: 999 mls/hr Documented by: [id number] Ceftriaxone Sodium (Rocephin) 1,000 mg in 50 mls @ 100 mls/hr IV NOW [facility] Stop: 10/17/20 21:22 Last Infusion: 10/17/20 22:16 Dose: 0 mls/hr Documented by: [id number] Admin: 10/17/20 21:44 Dose: 100 mls/hr Documented by: [id number] Levetiracetam 1,000 mg/ Sodium (Chloride) 110 mls @ 440 mls/hr IV NOW ONE Stop: 10/18/20 17:44 Last Infusion: 10/18/20 18:36 Dose: 0 mls/hr Documented by: [id number] Admin: 10/18/20 18:06 Dose: 440 mls/hr Documented by: [id number] Lamotrigine (Lamotrigine 100 Mg Tab) 100 mg PO BIDM [facility] Stop: 11/17/20 07:59 Last Admin: 10/18/20 08:55 Dose: 100 mg Documented by: [id number] Levalbuterol HCl (Levalbuterol Hcl 1.25 Mg/3 Ml Neb) 1.25 mg NEB NOW STA Stop: 10/17/20 21:14 Last Admin: 10/17/20 21:27 Dose: 1.25 mg Documented by: [id number] Levetiracetam (Levetiracetam 500 Mg Tab) 500 mg PO BID [facility] Stop: 11/17/20 20:59 Last Admin: 10/18/20 23:10 Dose: Not Given Documented by: [id number] Miscellaneous Information (Nursing To Pharmacy Communication) 1 ea N/A TODAY [facility] Stop: 11/17/20 20:59 Last Admin: 10/18/20 23:10 Dose: Not Given Documented by: [id number] Sterile Water (Tube Feeding Water Flush) 150 ml PEG Q4H [facility] Stop: 11/17/20 14:59 Last Admin: 10/19/20 05:53 Dose: 150 ml Documented by: [id number] Admin: 10/19/20 02:15 Dose: 150 ml Documented by: [id number] Admin: 10/18/20 23:28 Dose: 150 ml Documented by: [id number] Admin: 10/18/20 18:56 Dose: 150 ml Documented by: [id number] Admin: 10/18/20 16:13 Dose: 150 ml Documented by: [id number] Description This is a 21 electrode EEG with a single channel dedicated to limited EKG. The electrodes were placed in accordance with the International 10-20 system. REPORT: At the onset of the EEG the patient is in an altered mental state. The posterior dominant rhythm is not seen. And said the background consist of diffuse 2-3 Hz polymorphic delta activity with intermittent periods of suppression. There are frequent generalized periodic epileptiform discharges without any clear evolution.. Photic stimulation does not induce any abnormalities. Impression: This is an abnormal routine EEG due to the followin. Very frequent generalized periodic epileptiform discharges (GPEDs) consistent with a predisposition for seizure. generalized periodic discharges are highly associated with nonconvulsive seizures and nonconvulsive status epilepticus. 2. Generalized slowing with intermittent suppression suggestive of a nonspecific specific severe encephalopathy. Continuous video EEG recommended.
--- NOTE | 2020-10-19 12:38 | Progress Notes ---
DATE: 10/19/2020 This is an interim progress note on Nikia Pickens. I have spoken on video conference with the patient and her mother earlier this morning and at this point, which is now 1150. I have also spoken to Dr. Curiel who is her hospitalist. Last evening, the patient was having frequent episodes of head and eye deviation to the left with some twitching of her jaw and left hand. This would come and go, lasting minutes at a time and the patient not coming back to baseline; however, usually during those episodes, the patient could follow some simple commands with her right hand. I suspected a simple partial status epilepticus and loaded her with Keppra 1000 mg. She slept well overnight without any clinical seizure activity, but was somewhat difficult to arouse this morning. At some point, she did alert some and followed some simple commands, but was not at her baseline. The EEG was performed this morning and was abnormal due to very frequent generalized periodic epileptiform discharges consistent with a predisposition for seizure. Generalized periodic discharges are highly associated with nonconvulsive seizures and nonconvulsive status. Generalized slowing with intermittent suppression suggests a nonspecific severe encephalopathy. Continuous VEEG monitoring recommended.. This morning, the patient's labs are notable for a serum sodium of 122. Keppra level was ordered but is a send out. Trough Tegretol 17.8. Depakote 78. Earlier this morning, the patient was sleepy and unarousable by exam. Her mother indicated that her pupils were equal and reactive. She was lying in bed. There was no seizure activity of her arms, face. There was no head or eye deviation. Her eye movements appeared to be conjugated and somewhat roving. When I called back to speak to her mother at approximately 11:40, the mother had ongoing concerns, but the patient was more awake and alert. She did follow commands to lift her right arm. She does so on the left less well. We do not see any forced fixed gaze preference. We did see intermittent twitching of the jaw. IMPRESSION: This is a patient with mental retardation and very possibly [place]. She is COVID positive and was hospitalized 2 days ago for worsening respiratory status and relative hypoxemia. She has intermittently had multiple and nearly continuous head and eye deviation to the left yesterday. This resolved with Keppra, but the patient remained intermittently unarousable. The setting is suggestive of a nonconvulsive status epilepticus. I believe the patient needs to be transferred to an epilepsy monitoring unit. I feel we can safely continue to escalate her anticonvulsants without an EEG to follow. The serum sodium needs to be gradually corrected. Having reviewed her serum sodium, she tends to run fairly low, typically 125-130. The patient also needs to have a very least a repeat CT of the head. She had had a CT of the head approximately 8 weeks ago for possibly a change in the pattern of her seizures. It was a limited study without hemorrhage, midline shift, extraaxial collections. There are calcifications in the falx. The patient's seizures are typically not simple partial and she has never had status epilepticus. Regarding her anticonvulsant, she will be continued on Keppra 500 b.i.d. As her Tegretol level is fairly markedly elevated and possibly in small part contributing to some encephalopathy, it was held for the rest of the day. A trough level should be checked tomorrow, and Depakote should be continued. It would be reasonable as well to check an ammonia level. I have communicated my thoughts to Dr. Curiel who is working on transfer. Her mother is in agreement. NENA
[2020-10-19] MEDS ORDERED: lamoTRIgine 100 MG TAB PO STA (15:25)
--- NOTE | 2020-10-19 17:33 | Hospitalist Progress Note ---
Date of Service October 19, 2020 Assessment & Plan (1) Generalized epilepsy: Mother reports last seizure that she witnessed was on Sunday; however, I have some concern for seizure activity with eye movements. Follows with Dr. Liu. - Adjusting seizure meds: * Lamotrigine 200mg PO BID (730 & 1800) * Divalproex 625mg PO BID (730 & 1800) * Carbamazepine on hold due to high levels on multiple days * Added Keppra on evening of 10/18 - Neurology consult and EEG. - EEG on 10/19 indicated non-convulsive status epilepticus. Attempted to transfer to [facility] per neurology request; however, they declined transfer as seizure had broken and she was responsive again. Family also not really inter ested in transfer when it was determined they could not go with her. Increased lamotrigine per neurology advice. (2) Acute hyponatremia: Tt=797. Patient has had this worked up in the past - no clear explanation, thought possibly secondary to medication effects. Urine would indicate low solute as her urine osmolality is only 175. - 1L NSS given in the ED. - Nutrition consult to help improve protein intake. - Monitor Na levels -> No dramatic change today. Mother worried about 3rd spacing and pulmonary edema. Given that she is not much far off from baseline (mid-120s), we held free water boluses today and will monitor. (3) COVID-19: Diagnosed on 10/08. - Convalescent plasma ordered on 10/17/2020. Pending arrival. - Continue dexamethasone 6 mg IV daily - Will hold off on remdesevir therapy for now - patient is 10 days out from her positive test. - Continue Lovenox 40mg BID - Continue Levalbuterol nebs - Continue supplemental O2 by trach collar. - Continue Robitussin - Will consult raker buffing wheel, Dr. Madrigal. (4) Pneumonia: Patient afebrile at present. No increase or purulent secretions per mother. Procalcitonin on 10/17 was negative. - Continue ceftriaxone and azithromycin for now; could taper/stop if pulmonology agrees. (5) Hypothyroid: Chronic. TSH was 2.9 in 08/2020. - Continue Synthroid 200mcg po daily put in to PEG tube. (6) DVT prophylaxis: Lovenox 40 mg SQ BID per Covid protocol Admission and Anticipated Discharge Date Admission Date: October 17, 2020 Subjective Some responses today. Will follow commands, but cannot answer questions. Physical Exam Constitutional: + physical limitations and + frail appearing Eyes: EOM intact bilaterally (Some reflexive eye movements); no conjunctival abnormality ENMT: external ear and nose normal, oropharynx normal Neck: trachea midline, no thyromegaly + tracheostomy present Respiratory: + labored breathing; no respiratory distress Auscultation: + crackles Cardiovascular: Rate/Rhythm: regular rhythm and + tachycardic Heart Sounds: normal S1 and normal S2 Extremities: + edema (Very mild on hands.) Gastrointestinal (Abdomen): Inspection/Auscultation: + abdomen abnormal to inspection (PEG tube) and abdomen not distended Percussion/Palpation: abdomen nontender Musculoskeletal: no cyanosis or clubbing, extremities motor strength 5/5 Skin: no rashes, warm and dry Neurologic: awake; + does not move all extremities Psychiatric: Orientation: cooperative; + not alert and + not oriented to person Results & Data Results & Data ([facility]) Vital Signs (Past 12 Hours) Vital Signs Temp Pulse Resp BP Pulse Ox 10/19/20 15:40 79 20 94 10/19/20 14:50 37.1 C 79 16 137/85 93 10/19/20 08:00 37.1 C 18 130/68 93 10/19/20 07:50 82 18 93 PG Care Time/CCT Total # of Minutes Spent Total Time Spent with Patient: Total time spent is greater than 50% in coordination of care (as documented) at patient's floor/unit and/or counseling patient: Coding Level of Care Code 02871 Subseq Hosp Care Lvl 3 Diagnoses Generalized epilepsy G40.309 Acute hyponatremia E87.1 COVID-19 U07.1 Pneumonia J18.9 Laterality: unspecified laterality Lung location: unspecified part of lung Pneumonia type: due to unspecified organism Hypothyroid E03.9 Hypothyroidism type: unspecified DVT prophylaxis Z29.9 (1) Hypothyroid Hypothyroidism type: unspecified Qualified Code(s): E03.9 - Hypothyroidism, unspecified (2) Pneumonia Laterality: unspecified laterality Lung location: unspecified part of lung Pneumonia type: due to unspecified organism Qualified Code(s): J18.9 - Pneumonia, unspecified organism
[2020-10-19] MEDS ORDERED: DIVALPROEX SODIUM SPRINKLE 125 MG CAP PEG SCH (18:00)
[2020-10-19] MEDS: VALPROIC ACID SOLN 500 MG/10 ML UDC PO SCH (19:20)
[2020-10-19] MEDS: guaiFENesin SUGAR FREE 200 MG/10 ML UDC PEG SCH ×2 (19:20→23:19)
[2020-10-19] MEDS: AZITHROMYCIN 500 MG in DEXTROSE 5% 250 ML IV SCH (19:20)
[2020-10-19] MEDS: ACETAMINOPHEN SUSP 325 MG/10.15 ML UDC PEG PRN (20:01)
[2020-10-19] MEDS: LEVALBUTEROL HCL 1.25 MG/3 ML NEB NEB SCH (20:28)
--- NOTE | 2020-10-19 21:39 | Progress Notes ---
DATE: 10/19/2020 SUBJECTIVE: I saw Mrs. 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 By way of review, she apparently has had 2 days of fairly frequent simple partial seizures with head and eye deviation to the left, twitching of the left mouth, and jerking of the left hand. This went on very frequently with very little interruption of the forced eye deviation. During this episode, the patient would be responsive and follow commands with the right side. She received a gram of Keppra last evening. EEG this morning showed generalized periodic epileptiform discharges suggestive of status epilepticus. Tegretol level this morning was approximately 16 and Tegretol was held until tomorrow pending a level. She was given an extra 100 mg of Lamictal and Lamictal increased to 200 mg b.i.d. [facility] PHYSICAL EXAMINATION: She is sleepy but arousable, following commands with right greater than left hand. She has no current fixed gaze preference. She has no current respiratory distress. Her pupils are equal. No lower extremity movements. Bilateral lower extremities, toes are mute. IMPRESSION AND PLAN: This patient has had some simple partial status epilepticus, which clinically resolved with Keppra. Her EEG earlier this morning suggests possible subclinical status epilepticus. However, she has been intermittently awake and following some commands. Subclinical status cannot be excluded, although she is clearly having periods of awakeness. We contacted [facility] who felt that based on some description, that she may not be actively subclinically seizing. I spoke to them in some detail additionally with the information that while her parents were initially willing to theoretically transfer her if they could not accompany her at the hospital, they would not be willing to transfer her unless she was clearly seizing. Our plan at present in addition to continuing the Keppra and increasing the Lamictal is to repeat an EEG in the morning and see what it looks like. Certainly if she were having convulsive seizures or simple partial seizures that were recurrent, we would consider urgent transfer. I have discussed this at length with her mother and been in touch with her at least [address] Liu will be taking over the service tomorrow. He is familiar with her. Another consideration will be if the patient is clinically stable to perform a CT of the head. She has had a CT of the head 8 weeks ago and has not had any injury or falls. However, this seizure type is new. Levels will be pending for the morning as well as an ammonia level.
[2020-10-19] MEDS: cefTRIAXone SODIUM 2,000 MG in DEXTROSE 5% 50 ML IV SCH (22:26)
[2020-10-19] MEDS ORDERED: Nursing to Pharmacy Communication SCH (22:30)
[2020-10-19] MEDS: LEVOTHYROXINE SODIUM 200 MCG TABLET PEG SCH (23:11)
[2020-10-20] MEDS ORDERED: FLUCONAZOLE 50 MG TAB PO ONE (00:29)
[2020-10-20] MEDS: guaiFENesin SUGAR FREE 200 MG/10 ML UDC PEG SCH ×4 (05:07→22:22)
[2020-10-20] MEDS: PEPTAMEN INTENSE VHP 1.0 CAL 1,000 ML BAG PEG SCH (05:23)
[2020-10-20] MEDS ORDERED: LEVOTHYROXINE SODIUM 200 MCG TABLET PEG SCH (06:30)
[2020-10-20 07:17] LABS: Hematocrit (blood only) 31.5 % (37-47); Hemoglobin 11.1 g/dL (12.0-16.0); Mean Corpuscular Hemoglobin 31.6 pg (25-34); Mean Corpuscular Hgb Conc 35.2 g/dL (32-36); Mean Corpuscular Volume 89.7 fL (80-100); RDW Coefficient of Variation 14.7 % (11.5-14.5); RDW Standard Deviation 48.3 fL (36.4-46.3); Red Blood Count 3.51 M/uL (4.2-5.4); White Blood Count 4.75 K/uL (4.8-10.8)
[2020-10-20 07:24] LABS: Mean Platelet Volume 10.8 fL (7.4-10.4); Platelet Count 72 K/uL (130-400)
[2020-10-20 07:54] LABS: Carbamazepine Tegretol 12.9 mcg/ml (4-12); Creatinine Clr Calc Pharmacy 187.8 ml/min; Est GFR (African American) 146.5; Est GFR (Non-African American) 126.4; Magnesium 2.2 mg/dl (1.8-2.4); Potassium 4.5 mmol/L (3.5-5.1)
[2020-10-20] MEDS: LEVALBUTEROL HCL 1.25 MG/3 ML NEB NEB SCH ×2 (07:57→19:24)
[2020-10-20] MEDS: ENOXAPARIN INJ 40 MG/0.4 ML SYR SQ SCH ×2 (08:19→20:12)
[2020-10-20] MEDS: VALPROIC ACID SOLN 500 MG/10 ML UDC PO SCH ×2 (08:19→16:21)
[2020-10-20] MEDS: lamoTRIgine 100 MG TAB PO SCH ×2 (08:21→16:20)
[2020-10-20] MEDS: DOCUSATE SODIUM SYRUP 100 MG/10 ML UDC PEG SCH (08:21)
[2020-10-20] MEDS: diazePAM 5 MG TABLET PO SCH ×2 (08:29→17:51)
[2020-10-20] MEDS: dexAMETHasone 6 MG in SYRINGE 0 ML IV SCH (08:29)
--- NOTE | 2020-10-20 10:07 | Nephrology Consultation ---
Date of Consultation October 20, 2020 Assessment & Plan (1) Hyponatremia: Chronic, with noted worsening (127-133 mmol/L at baseline). Very difficult to assess for symptoms. Thankfully, overall clinical improvement has been reported. Patient has a significant history of seizure disorder. She has a complicated medication regimen to manage her seizures. Other contributing diagnoses include hypothyroidism. Volume status is reported as euvolemic at this time. This appears to be relatively stable. Patient's oral solute intake is poor. She has chronic hypoalbuminemia. She has undergone evaluation for adrenal insufficiency in the past. I suspect at this time her thyroid is relati vely well treated on her current dose of levothyroxine. Her most recent TSH was found in August and acceptable. I suspect her clinical presentation is related to poor solute intake, increased fluid intake, chronic fluid retention and a component of inappropriate anti-diuretic hormone complicated by seizures. Diuretics have been deferred at this time pending additional monitoring. Free water has been restricted to 1 L/d. Tube feeds being increased to goal with Peptamen. Urine studies will be updated. Metabolic profile to be monitored closely with repeat this afternoon. Additional sodium supplementation to be then provided as needed. (2) Generalized epilepsy: (3) COVID-19: (4) Hypothyroid: History of Present Illness Reason for Consultation: Hyponatremia Requesting Physician: Kali Gonzalez Attending Physician: Kali Gonzalez History of Present Illness Nikia Pickens is a 49-year-old female who I initially met in the [facility] in [place] in August 2019 for evaluation of hyponatremia. Nikia has chronic mild to moderate hyponatremia. Medical history is notable for severe history of seizure disorders, intellectual disability, and mental retardation. Suffered epilepsy at a young age and a severe fall related to 1 of her seizures which has left her paraplegic. Nikia is predominantly nonverbal. The history is obtained from her parents in review of the medical record. She is dependent on assistance with most activities of daily living. She has an indwelling gastric feeding tube but typically takes most of her meals by mouth. The feeding tube provides for some water supplementation. She also has a suprapubic catheter due to history of urinary retention from neurogenic bladder complicated by recurrent urinary tract infections. She has a tracheostomy. She is nonambulatory. During a prior hospitalization she was diagnosed with hypothyroidism. Her TSH was elevated at greater than 10 in the association of elevated Tegretol levels. She was having active seizures at that time. Subsequently, however she had done well until last weekend. I spoke to Nikia's mother, Tali in detail this morning. I also reviewed the patient's history with Dr. Gonzalez. Nikia was recently diagnosed COVID+. She has been increasingly lethargic and weak. She was not communicating on Sunday when her mother first became aware that sometimes was wrong. Oxygen saturations then began to drop on Sunday prompting evaluation in the ER. Nikia was subsequently admitted with seizures and hyponatremia. Serum sodium did initially respond to a bolus of IV saline in the ER. Nikia had since been maintained in a positive fluid balance but taking very little by mouth. Tube feeds were held and subsequently restarted. Free water flushes now limited. This morning, I discussed the plan of care with the dietitian, Ramesh Sinclair. Allergies Allergy/AdvReac Type Severity Reaction Status Date / Time phenobarbital AdvReac Intermediate depresssed Verified 10/17/20 21:58 Home Medications Medication Instructions Recorded Confirmed Type diazepam 5 mg PO BID 11/14/18 10/17/20 History lamotrigine [Lamictal] 100 mg PO BIDM 11/14/18 10/17/20 History magnesium oxide 200 mg PO Q2D 11/14/18 10/17/20 History magnesium oxide 400 mg PO Q2D 11/14/18 10/17/20 History multivitamin 1 tab PO QAM 11/14/18 10/17/20 History carbamazepine [Tegretol] 400 mg PO QPM 01/15/19 10/17/20 History divalproex 625 mg PO BID 01/15/19 10/17/20 History carbamazepine [Tegretol] 200 mg PO QAM 12/22/19 10/17/20 History guaifenesin 600 mg PO BID 12/22/19 10/17/20 History pseudoephedrine HCl 30 mg tablet 30 mg PO DAILY PRN 01/29/20 10/17/20 History oxybutynin chloride 10 mg 10 mg PO DAILY PRN tab 08/16/20 10/17/20 History tablet,extended release 24 hr levothyroxine 200 mcg tablet 200 mcg PO DAILY #30 tab 09/07/20 10/17/20 Rx docusate sodium [Colace] 100 mg PO DAILY 10/17/20 10/17/20 History ibuprofen 400 - 600 mg PO UD PRN 10/17/20 10/17/20 History levalbuterol HCl 0.63 mg INHALATION Q8 PRN 10/17/20 10/17/20 History Patient History Medical History Chronic constipation Gastrointestinal tube present Generalized epilepsy (09/22/11) Leeroy filter in place 2015 -Placed after back surgery prophylactically Mental retardation Surgical History Difficult ventilator weaning 2015 - post op back surgery History of ankle surgery left ankle History of back surgery 2015 History of cardiac cath [place] 2015 Hx of hysterectomy, total 2009 Family History Other No pertinent family history in first degree relatives Social History Smoking Status: Never smoker Second Hand Exposure: No; Hx Alcohol Use: No Hx Substance Use: No Preferred Language: Mexican Communication Ability: Impaired Electrical Wirer Required: No Beliefs That Will Affect Care: None Current Living Situation: Parent Feels Safe at Home: Yes Assistive Devices: Oxygen - Continuous Review of Systems Review of Systems: Unobtainable due to cognitive status and Unobtainable due to endotracheal tube Physical Exam Physical Exam: Deferred due to COVID 19 Results & Data ([facility]) Vital Signs (Past 12 Hours) Vital Signs Temp Pulse Resp BP Pulse Ox 10/20/20 08:06 77 20 93 10/19/20 23:28 37.1 C 74 17 92/62 L 91 Laboratory Results Laboratory Results - last 24 hr 10/18/20 10/20/20 10/20/20 17:41 06:48 06:48 WBC 4.75 L RBC 3.51 L Hgb 11.1 L Hct 31.5 L MCV 89.7 MCH 31.6 MCHC 35.2 RDW Std Deviation 48.3 H RDW Coeff of Nazanin 14.7 H Plt Count 72 L MPV 10.8 H Sodium 120 L Potassium 4.5 Chloride 86 L Carbon Dioxide 29 Anion Gap 5.0 BUN 19 H Creatinine 0.37 L Est Cr Clr Drug Dosing 187.8 Est GFR ( Amer) 146.5 Est GFR (Non-Af Amer) 126.4 BUN/Creatinine Ratio 50.0 H Glucose 88 Calcium 9.0 Magnesium 2.2 Ammonia Valproic Acid Carbamazepine Lamotrigine Pending 10/20/20 10/20/20 06:48 06:48 WBC RBC Hgb Hct MCV MCH MCHC RDW Std Deviation RDW Coeff of Nazanin Plt Count MPV Sodium Potassium Chloride Carbon Dioxide Anion Gap BUN Creatinine Est Cr Clr Drug Dosing Est GFR ( Amer) Est GFR (Non-Af Amer) BUN/Creatinine Ratio Glucose Calcium Magnesium Ammonia 40.0 H Valproic Acid 76 Carbamazepine 12.9 H* Lamotrigine PG Care Time/CCT Total # of Minutes Spent Total Time Spent with Patient: Total time spent is greater than 50% in coordination of care (as documented) at patient's floor/unit and/or counseling patient: Coding Level of Care Code 73883 Inpt Consult Level 4 Diagnoses Hyponatremia E87.1 Generalized epilepsy G40.309 COVID-19 U07.1 Hypothyroid E03.9 Hypothyroidism type: unspecified (1) Hypothyroid Hypothyroidism type: unspecified Qualified Code(s): E03.9 - Hypothyroidism, unspecified
--- NOTE | 2020-10-20 11:36 | Electroencephalogram ---
EEG Procedure Note Date of Service October 20, 2020 Start / End Times Start Time: 06:31 End Time: 6:51 Referring Physician Jana Perez MD History A 50-year-old woman with history of epilepsy admitted due to concern for nonconvulsive status epilepticus. EEG performed for evaluation epileptiform activity. Home Medication List Medication Instructions Recorded Confirmed Type diazepam 5 mg PO BID 11/14/18 10/17/20 History lamotrigine [Lamictal] 100 mg PO BIDM 11/14/18 10/17/20 History magnesium oxide 200 mg PO Q2D 11/14/18 10/17/20 History magnesium oxide 400 mg PO Q2D 11/14/18 10/17/20 History multivitamin 1 tab PO QAM 11/14/18 10/17/20 History carbamazepine [Tegretol] 400 mg PO QPM 01/15/19 10/17/20 History divalproex 625 mg PO BID 01/15/19 10/17/20 History carbamazepine [Tegretol] 200 mg PO QAM 12/22/19 10/17/20 History guaifenesin 600 mg PO BID 12/22/19 10/17/20 History pseudoephedrine HCl 30 mg tablet 30 mg PO DAILY PRN 01/29/20 10/17/20 History oxybutynin chloride 10 mg 10 mg PO DAILY PRN tab 08/16/20 10/17/20 History tablet,extended release 24 hr levothyroxine 200 mcg tablet 200 mcg PO DAILY #30 tab 09/07/20 10/17/20 Rx docusate sodium [Colace] 100 mg PO DAILY 10/17/20 10/17/20 History ibuprofen 400 - 600 mg PO UD PRN 10/17/20 10/17/20 History levalbuterol HCl 0.63 mg INHALATION Q8 PRN 10/17/20 10/17/20 History Inpatient Medication List Acetaminophen (Acetaminophen Susp 325 Mg/10.15 Ml Udc) 650 mg PEG Q6H PRN PRN Reason: Pain or Fever Stop: 11/18/20 15:21 Last Admin: 10/19/20 20:01 Dose: 650 mg Documented by: [id number] Carbamazepine (Carbamazepine 200 Mg Tablet) 200 mg PO DAILY@0730 [facility] Stop: 11/18/20 07:29 Last Admin: 10/19/20 08:32 Dose: 200 mg Documented by: [id number] Carbamazepine (Carbamazepine 200 Mg Tablet) 400 mg PO DAILY@1800 [facility] Stop: 11/17/20 17:59 Last Admin: 10/18/20 18:09 Dose: 400 mg Documented by: [id number] Diazepam (Diazepam 5 Mg Tablet) 5 mg PO 0730,1800 [facility] Stop: 11/17/20 17:59 Last Admin: 10/20/20 08:29 Dose: 5 mg Documented by: [id number] Admin: 10/19/20 19:21 Dose: 5 mg Documented by: [id number] Admin: 10/19/20 07:54 Dose: 5 mg Documented by: [id number] Admin: 10/18/20 18:08 Dose: 5 mg Documented by: [id number] Docusate Sodium (Docusate Sodium Syrup 100 Mg/10 Ml Udc) 100 mg PEG 0730 [facility] Stop: 11/19/20 07:29 Last Admin: 10/20/20 08:21 Dose: 100 mg Documented by: [id number] Enoxaparin Sodium (Enoxaparin Inj 40 Mg/0.4 Ml Syr) 40 mg SQ Q12H [facility] Stop: 11/17/20 07:59 Last Admin: 10/20/20 08:19 Dose: 40 mg Documented by: [id number] Admin: 10/19/20 19:21 Dose: 40 mg Documented by: [id number] Admin: 10/19/20 07:58 Dose: 40 mg Documented by: [id number] Admin: 10/18/20 20:53 Dose: 40 mg Documented by: [id number] Admin: 10/18/20 08:56 Dose: 40 mg Documented by: [id number] Guaifenesin (Guaifenesin Sugar Free 200 Mg/10 Ml Udc) 200 mg PEG Q6H [facility] Stop: 11/18/20 17:59 Last Admin: 10/20/20 05:07 Dose: 200 mg Documented by: [id number] Admin: 10/19/20 23:19 Dose: 200 mg Documented by: [id number] Admin: 10/19/20 19:20 Dose: 200 mg Documented by: [id number] Ceftriaxone Sodium 2,000 mg/ (Dextrose) 70 mls @ 100 mls/hr IV Q24H [facility]; Protocol Stop: 10/25/20 21:59 Last Infusion: 10/19/20 23:12 Dose: 0 mls/hr Documented by: [id number] Admin: 10/19/20 22:26 Dose: 100 mls/hr Documented by: [id number] Infusion: 10/19/20 00:10 Dose: 0 mls/hr Documented by: [id number] Admin: 10/18/20 23:28 Dose: 100 mls/hr Documented by: [id number] Azithromycin 500 mg/ Dextrose 255 mls @ 125 mls/hr IV Q24H [facility] Stop: 10/25/20 19:59 Last Infusion: 10/19/20 22:20 Dose: 0 mls/hr Documented by: [id number] Admin: 10/19/20 19:20 Dose: 125 mls/hr Documented by: [id number] Infusion: 10/19/20 02:15 Dose: 0 mls/hr Documented by: [id number] Infusion: 10/19/20 00:10 Dose: 125 mls/hr Documented by: [id number] Infusion: 10/18/20 21:24 Dose: 0 mls/hr Documented by: [id number] Admin: 10/18/20 20:53 Dose: 125 mls/hr Documented by: [id number] Dexamethasone Sodium Phosphate (6 mg/ Syringe) 1.5 mls @ 1 mls/min IV DAILY [facility] Stop: 11/17/20 01:44 Last Admin: 10/20/20 08:29 Dose: 1 mls/min Documented by: [id number] Admin: 10/19/20 07:54 Dose: 1 mls/min Documented by: [id number] Admin: 10/18/20 08:56 Dose: 1 mls/min Documented by: [id number] Admin: 10/18/20 02:35 Dose: 1 mls/min Documented by: [id number] Lamotrigine (Lamotrigine 100 Mg Tab) 200 mg PO DAILY@0730,1800 [facility] Stop: 11/18/20 17:59 Last Admin: 10/20/20 08:21 Dose: 200 mg Documented by: [id number] Admin: 10/19/20 19:21 Dose: 200 mg Documented by: [id number] Levalbuterol HCl (Levalbuterol Hcl 0.63 Mg/3 Ml Neb) 0.63 mg INH Q8 PRN PRN Reason: Wheezing Stop: 11/17/20 01:11 Last Admin: 10/19/20 15:36 Dose: 0.63 mg Documented by: [id number] Admin: 10/19/20 07:50 Dose: 0.63 mg Documented by: [id number] Levalbuterol HCl (Levalbuterol Hcl 1.25 Mg/3 Ml Neb) 1.25 mg NEB BIDR [facility] Stop: 11/18/20 18:59 Last Admin: 10/20/20 07:57 Dose: 1.25 mg Documented by: [id number] Admin: 10/19/20 20:28 Dose: 1.25 mg Documented by: [id number] Levetiracetam (Levetiracetam Soln 500 Mg/5 Ml Udp) 500 mg PEG BID [facility] Stop: 11/18/20 20:59 Last Admin: 10/20/20 08:22 Dose: 500 mg Documented by: [id number] Admin: 10/19/20 20:02 Dose: 500 mg Documented by: [id number] Levothyroxine Sodium (Levothyroxine Sodium 200 Mcg Tablet) 200 mcg PEG HS [facility] Stop: 11/18/20 22:59 Last Admin: 10/19/20 23:11 Dose: 200 mcg Documented by: [id number] Nutritional Formula (Peptamen Intense Vhp 1.0 Nelson 1,000 Ml Bag) 1,000 ml PEG UD [facility]; Protocol Stop: 11/17/20 14:59 Last Admin: 10/20/20 05:23 Dose: 1,000 ml Documented by: [id number] Admin: 10/18/20 16:17 Dose: 1,000 ml Documented by: [id number] Valproic Acid (Valproic Acid Soln 500 Mg/10 Ml Udc) 625 mg PO DAILY@0730,1800 [facility] Stop: 11/18/20 17:59 Last Admin: 10/20/20 08:19 Dose: 625 mg Documented by: [id number] Admin: 10/19/20 19:20 Dose: 625 mg Documented by: [id number] Discontinued Medications Acetaminophen (Acetaminophen 325 Mg Tab) 650 mg PO Q4H PRN PRN Reason: pain/fever Stop: 11/17/20 01:11 Last Admin: 10/18/20 02:35 Dose: 650 mg Documented by: [id number] Azithromycin (Azithromycin Susp 200 Mg/5 Ml 22.5 Ml Homepack) 500 mg PO NOW ONE Stop: 10/17/20 20:54 Last Admin: 10/17/20 21:44 Dose: 500 mg Documented by: [id number] Carbamazepine (Carbamazepine 200 Mg Tablet) 200 mg PO QAM [facility] Stop: 11/17/20 08:59 Last Admin: 10/18/20 08:55 Dose: 200 mg Documented by: [id number] Diazepam (Diazepam 5 Mg Tablet) 5 mg PO BID [facility] Stop: 11/17/20 08:59 Last Admin: 10/18/20 09:18 Dose: 5 mg Documented by: [id number] Divalproex Sodium (Divalproex Sodium Sprinkle 125 Mg Cap) 625 mg PO BID [facility] Stop: 11/17/20 08:59 Last Admin: 10/18/20 08:55 Dose: 625 mg Documented by: [id number] Divalproex Sodium (Divalproex Sodium Sprinkle 125 Mg Cap) 625 mg PO 0730,1800 [facility] Stop: 11/17/20 17:59 Last Admin: 10/19/20 08:29 Dose: 625 mg Documented by: [id number] Admin: 10/18/20 18:07 Dose: 625 mg Documented by: [id number] Docusate Sodium (Docusate Sodium 100 Mg Cap) 100 mg PO DAILY [facility] Stop: 11/17/20 08:59 Last Admin: 10/18/20 08:55 Dose: 100 mg Documented by: [id number] Docusate Sodium (Docusate Sodium 100 Mg Cap) 100 mg PO 0730 [facility] Stop: 11/18/20 07:29 Last Admin: 10/19/20 07:57 Dose: 100 mg Documented by: [id number] Fluconazole (Fluconazole 50 Mg Tab) 150 mg PO NOW ONE Stop: 10/20/20 00:30 Last Admin: 10/20/20 02:04 Dose: 150 mg Documented by: [id number] Guaifenesin (Guaifenesin 600 Mg Tabcr) 600 mg PO BID [facility] Stop: 11/17/20 08:59 Last Admin: 10/18/20 08:56 Dose: 600 mg Documented by: [id number] Guaifenesin (Guaifenesin 600 Mg Tabcr) 600 mg PO 0730,1800 [facility] Stop: 11/17/20 17:59 Last Admin: 10/19/20 08:31 Dose: 600 mg Documented by: [id number] Admin: 10/18/20 18:07 Dose: 600 mg Documented by: [id number] Sodium Chloride (Nss 1000ml) 1,000 mls @ 999 mls/hr IV .Q1H1M ONE Stop: 10/17/20 20:32 Last Infusion: 10/17/20 20:49 Dose: 0 mls/hr Documented by: [id number] Admin: 10/17/20 19:45 Dose: 999 mls/hr Documented by: [id number] Ceftriaxone Sodium (Rocephin) 1,000 mg in 50 mls @ 100 mls/hr IV NOW STA Stop: 10/17/20 21:22 Last Infusion: 10/17/20 22:16 Dose: 0 mls/hr Documented by: [id number] Admin: 10/17/20 21:44 Dose: 100 mls/hr Documented by: [id number] Levetiracetam 1,000 mg/ Sodium (Chloride) 110 mls @ 440 mls/hr IV NOW ONE Stop: 10/18/20 17:44 Last Infusion: 10/18/20 18:36 Dose: 0 mls/hr Documented by: [id number] Admin: 10/18/20 18:06 Dose: 440 mls/hr Documented by: [id number] Lamotrigine (Lamotrigine 100 Mg Tab) 100 mg PO BIDM [facility] Stop: 11/17/20 07:59 Last Admin: 10/18/20 08:55 Dose: 100 mg Documented by: [id number] Lamotrigine (Lamotrigine 100 Mg Tab) 100 mg PO 0730,1800 [facility] Stop: 11/17/20 17:59 Last Admin: 10/19/20 08:30 Dose: 100 mg Documented by: [id number] Admin: 10/18/20 18:08 Dose: 100 mg Documented by: [id number] Lamotrigine (Lamotrigine 100 Mg Tab) 100 mg PO NOW STA Stop: 10/19/20 15:26 Last Admin: 10/19/20 16:30 Dose: 100 mg Documented by: [id number] Levalbuterol HCl (Levalbuterol Hcl 1.25 Mg/3 Ml Neb) 1.25 mg NEB NOW STA Stop: 10/17/20 21:14 Last Admin: 10/17/20 21:27 Dose: 1.25 mg Documented by: [id number] Levetiracetam (Levetiracetam 500 Mg Tab) 500 mg PO BID [facility] Stop: 11/17/20 20:59 Last Admin: 10/18/20 23:10 Dose: Not Given Documented by: [id number] Levetiracetam (Levetiracetam Soln 500 Mg/5 Ml Udp) 500 mg PO BID [facility] Stop: 11/17/20 21:14 Last Admin: 10/19/20 07:57 Dose: 500 mg Documented by: [id number] Admin: 10/18/20 22:12 Dose: 500 mg Documented by: [id number] Levothyroxine Sodium (Levothyroxine Sodium 200 Mcg Tablet) 200 mcg PO PM [facility] Stop: 11/17/20 20:59 Last Admin: 10/18/20 20:53 Dose: 200 mcg Documented by: [id number] Miscellaneous Information (Nursing To Pharmacy Communication) 1 ea N/A TODAY [facility] Stop: 11/17/20 20:59 Last Admin: 10/18/20 23:10 Dose: Not Given Documented by: [id number] Sterile Water (Tube Feeding Water Flush) 150 ml PEG Q4H [facility] Stop: 11/17/20 14:59 Last Admin: 10/19/20 05:53 Dose: 150 ml Documented by: [id number] Admin: 10/19/20 02:15 Dose: 150 ml Documented by: [id number] Admin: 10/18/20 23:28 Dose: 150 ml Documented by: [id number] Admin: 10/18/20 18:56 Dose: 150 ml Documented by: [id number] Admin: 10/18/20 16:13 Dose: 150 ml Documented by: [id number] Description This is a 21 electrode EEG with a single channel dedicated to limited EKG. The electrodes were placed in accordance with the International 10-20 system. Report: At the onset of the EEG the patient is in altered mental state. The background is disorganized. The posterior dominant rhythm is not seen. The background predominantly consisted of moderate to high amplitude 2-4 Hz delta activity with some intermixed faster frequencies. There are frequent generalized periodic epileptiform discharges which at times occur in a frequency of 1 Hz. On review of the video there is no clinical correlate. Photic stimulation does not induce any additional abnormalities. Impression: This is an abnormal routine EEG in a patient with altered mentation due to 1. frequent generalized periodic epileptiform discharges (GPED's) suggestive of a predisposition for seizures, 2. diffuse background slowing suggestive of a severe encephalopathy.
[2020-10-20 13:22] LABS: Albumin Level 2.4 gm/dl (3.4-5.0); BUN Creatinine Ratio 45.1 (10-20); Calcium 9.5 mg/dl (8.5-10.1); Creatinine Clr Calc Pharmacy 182.9 ml/min; Est GFR (African American) 145.2; Est GFR (Non-African American) 125.3
[2020-10-20 13:24] LABS: Phosphorus 4.3 mg/dl (2.5-4.9)
[2020-10-20 13:58] LABS: Potassium Random Urine 14.8 mmol/L
--- NOTE | 2020-10-20 16:14 | Communication Note ---
Date of Service: October 20, 2020 Nikia was seen today by video using cell phone technology and [employer]. She according to her mother with whom Jana Esquivel and I spoke with at length today has done much better with more participatory followed commands and if you have any clinical seizure like activity was noted but she is beginning to reverse day and night was up until 4 AM and is now sleeping so we did not disturb her or ask her mother to wake her so we could observe her behavior. The Lamictal dose has been increased to 200 twice a day, Depakote remains stable, Tegretol is being held as she does have toxic levels and is not clear whether this might have reflected the acute effects of azithromycin or was drifting upwards prior to initiation of this antibiotic and she is now on Keppra after an IV load and this has certainly helped control the clinical seizures and her EEG is much less abnormal today but still shows the polyspike and wave bursts typical of her [place] Sydrome but the potential for nonconvulsive seizure activity is felt to be less A repeat Tegretol level is pending tomorrow and I will probably suggest if this is under 12 to restart the Tegretol at 200 mg twice a day and continue the other anticonvulsants at their current dosing For now she seems to be recovering from her Covid to some degree and I think this is really what precipitated increased seizure activity in a patient with a very low seizure threshold and probably ongoing episodic clinical subclinical events anyway on a very frequent basis For now her mother seems to be content and actually pleased with her progress and I would not push her any other diagnostic studies at this point and I do not think we need another EEG was things would change I will make another visit with her tomorrow likely by video although at some point her Covid is probably not going to be that infectious as is been probably 10 to 14 days since she manifested her first symptom Jt Liu MD
[2020-10-20] MEDS: AZITHROMYCIN 500 MG in DEXTROSE 5% 250 ML IV SCH (20:12)
[2020-10-20] MEDS: LEVOTHYROXINE SODIUM 200 MCG TABLET PEG SCH (20:24)
[2020-10-20] MEDS: cefTRIAXone SODIUM 2,000 MG in DEXTROSE 5% 50 ML IV SCH (22:21)
[2020-10-20] MEDS: ACETAMINOPHEN SUSP 325 MG/10.15 ML UDC PEG PRN (22:22)
--- NOTE | 2020-10-20 22:45 | Hospitalist Progress Note ---
Date of Service October 20, 2020 Assessment & Plan (1) Generalized epilepsy: Mother reports last seizure that she witnessed was on Sunday; however, I have some concern for seizure activity with eye movements. Follows with Dr. Liu. - Adjusting seizure meds: * Lamotrigine 200mg PO BID (730 & 1800) * Divalproex 625mg PO BID (730 & 1800) * Carbamazepine on hold due to high levels on multiple days: remains above 12 on 10/20 * Added Keppra on evening of 10/18 - Neurology consult and EEG. - EEG on 10/19 indicated non-convulsive status epilepticus. Attempted to transfer to [facility] per neurology request; however, they declined transfer as seizure had broken and she was responsive again. Family also not really interested in transfer when it was determined they could not go with her. Increased lamotrigine per neurology advice. (2) Acute hyponatremia: En=445. Patient has had this worked up in the past - no clear explanation, thought possibly secondary to medication effects. Urine would indicate low solute as her urine osmolality is only 175. - 1L NSS given in the ED. - Nutrition consult to help improve protein intake. - Monitor Na levels -> No dramatic change today. Mother worried about 3rd spacing and pulmonary edema. Given that she is not much far off from baseline (mid-120s), we held free water boluses today and will monitor. consulted nephro: sodium level remains in low 120 on 10/20 (3) COVID-19: Diagnosed on 10/08. - Convalescent plasma ordered on 10/17/2020. Pending arrival. - Continue dexamethasone 6 mg IV daily - Will hold off on remdesevir therapy for now - patient is 10 days out from her positive test. - Continue Lovenox 40mg BID - Continue Levalbuterol nebs - Continue supplemental O2 by trach collar. - Continue Robitussin - Will consult information technology advisor, Dr. Madrigal. (4) Pneumonia: Patient afebrile at present. No increase or purulent secretions per mother. Procalcitonin on 10/17 was negative. - Continue ceftriaxone and azithromycin for now; could taper/stop if pulmonology agrees. (5) Hypothyroid: Chronic. TSH was 2.9 in 08/2020. - Continue Synthroid 200mcg po daily put in to PEG tube. (6) DVT prophylaxis: Lovenox 40 mg SQ BID per Covid protocol Admission and Anticipated Discharge Date Admission Date: October 17, 2020 Subjective Mother at bedside and reports daughter is looking better. She has no new complaints. Review of Systems Review of Systems: Unobtainable due to cognitive status Physical Exam Physical Exam: Constitutional: + physical limitations and + frail appearing Eyes: EOM intact bilaterally (Some reflexive eye movements); no conjunctival abnormality ENMT: external ear and nose normal, oropharynx normal Neck: trachea midline, no thyromegaly + tracheostomy present Respiratory: no respiratory distress Auscultation: + crackles Cardiovascular: Rate/Rhythm: regular rhythm and + tachycardic Heart Sounds: normal S1 and normal S2 Extremities: + edema (Very mild on hands.) Gastrointestinal (Abdomen): Inspection/Auscultation: + abdomen abnormal to inspection (PEG tube) and abdomen not distended Percussion/Palpation: abdomen nontender Musculoskeletal: no cyanosis or clubbing, extremities motor strength 5/5 Skin: no rashes, warm and dry Neurologic: awake; + does not move all extremities Psychiatric: Orientation: cooperative; + not alert and + not oriented to person Results & Data Results & Data ([facility]) Vital Signs (Past 12 Hours) Vital Signs Pulse Resp Pulse Ox 10/20/20 19:24 89 20 90 PG Care Time/CCT Total # of Minutes Spent Total Time Spent with Patient: Total time spent is greater than 50% in coordination of care (as documented) at patient's floor/unit and/or counseling patient: Coding Level of Care Code 36877 Subseq Hosp Care Lvl 3 Diagnoses Generalized epilepsy G40.309 Acute hyponatremia E87.1 COVID-19 U07.1 Pneumonia J18.9 Laterality: unspecified laterality Lung location: unspecified part of lung Pneumonia type: due to unspecified organism Hypothyroid E03.9 Hypothyroidism type: unspecified DVT prophylaxis Z29.9 Time Spent (min) 35 (1) Hypothyroid Hypothyroidism type: unspecified Qualified Code(s): E03.9 - Hypothyroidism, unspecified (2) Pneumonia Laterality: unspecified laterality Lung location: unspecified part of lung Pneumonia type: due to unspecified organism Qualified Code(s): J18.9 - Pneumonia, unspecified organism
[2020-10-21] MEDS: PEPTAMEN INTENSE VHP 1.0 CAL 1,000 ML BAG PEG SCH ×2 (01:37→23:22)
[2020-10-21] MEDS: guaiFENesin SUGAR FREE 200 MG/10 ML UDC PEG SCH ×4 (05:52→23:17)
[2020-10-21] MEDS: lamoTRIgine 100 MG TAB PO SCH ×2 (07:59→18:39)
[2020-10-21] MEDS: dexAMETHasone 6 MG in SYRINGE 0 ML IV SCH (08:00)
[2020-10-21] MEDS: VALPROIC ACID SOLN 500 MG/10 ML UDC PO SCH ×2 (08:01→18:39)
[2020-10-21] MEDS: ENOXAPARIN INJ 40 MG/0.4 ML SYR SQ SCH ×2 (08:02→20:36)
[2020-10-21] MEDS: DOCUSATE SODIUM SYRUP 100 MG/10 ML UDC PEG SCH (08:04)
[2020-10-21] MEDS: LEVALBUTEROL HCL 1.25 MG/3 ML NEB NEB SCH ×2 (08:11→20:39)
[2020-10-21] MEDS: diazePAM 5 MG TABLET PO SCH ×2 (08:18→18:39)
[2020-10-21 08:32] LABS: Hematocrit (blood only) 31.5 % (37-47); Hemoglobin 10.9 g/dL (12.0-16.0); Mean Corpuscular Hemoglobin 31.4 pg (25-34); Mean Corpuscular Hgb Conc 34.6 g/dL (32-36); Mean Corpuscular Volume 90.8 fL (80-100); RDW Coefficient of Variation 14.7 % (11.5-14.5); RDW Standard Deviation 49.2 fL (36.4-46.3); Red Blood Count 3.47 M/uL (4.2-5.4); White Blood Count 5.94 K/uL (4.8-10.8)
[2020-10-21 08:35] LABS: Mean Platelet Volume 10.4 fL (7.4-10.4); Platelet Count 66 K/uL (130-400)
[2020-10-21 08:55] LABS: Acanthocytes 1+; Basophils # (auto) 0.04 K/uL (0-0.2); Basophils % (auto) 0.7 %; Immature Granulocytes # (auto) 0.41 K/uL (0.00-0.02); Immature Granulocytes % (auto) 6.9 %; Lymphocytes # (auto) 0.82 K/uL (1.2-3.4); Lymphocytes % (auto) 13.8 %; Monocytes # (auto) 1.52 K/uL (0.11-0.59); Monocytes % (auto) 25.6 %; Neutrophils # (auto) 3.15 K/uL (1.4-6.5)
[2020-10-21 08:57] LABS: Chloride 91 mmol/L (98-107); Potassium 4.7 mmol/L (3.5-5.1); Sodium 127 mmol/L (136-145)
[2020-10-21 09:13] LABS: BUN Creatinine Ratio 71.3 (10-20); Blood Urea Nitrogen 21 mg/dl (7-18); Calcium 9.1 mg/dl (8.5-10.1); Carbon Dioxide 29 mmol/L (21-32); Creatinine Clr Calc Pharmacy 231.6 ml/min; Est GFR (African American) > 150.0; Est GFR (Non-African American) 135.4; Glucose 87 mg/dl (70-99); Magnesium 2.2 mg/dl (1.8-2.4)
[2020-10-21 09:16] LABS: Albumin Level 2.3 gm/dl (3.4-5.0); Phosphorus 3.7 mg/dl (2.5-4.9)
--- NOTE | 2020-10-21 11:54 | Nephrology Progress Note ---
Date of Service October 21, 2020 Assessment & Plan (1) Hyponatremia: Chronic. Serum sodium approaching baseline. Volume status appears to be acceptable by report. Rate of correction has been appropriate. Clinical presentation consistent with decreased solute intake. Tolerating TF. Avoiding increasing free water intake. Continue to monitor serum sodium twice daily. Nephrology will follow labs. Please call with any other questions or concerns. Admission and Anticipated Discharge Date Admission Date: October 17, 2020 Subjective Continued improvement noted from staff and family. No acute events overnight. No obvious seizures. Tolerating tube feeding well. Some increased loose stool noted. I did not personally evaluate the patient today due to COVID. Review of Systems Review of Systems: Unobtainable due to cognitive status Physical Exam Physical Exam: Deferred due to COVID Results & Data ([facility]) Vital Signs (Past 12 Hours) Vital Signs Temp Pulse Resp BP Pulse Ox 10/21/20 08:11 85 20 91 10/21/20 07:20 37.2 C 80 20 115/71 91 Laboratory Results Laboratory Results - last 24 hr 10/20/20 10/20/20 10/20/20 12:46 13:27 13:27 WBC RBC Hgb Hct MCV MCH MCHC RDW Std Deviation RDW Coeff of Nazanin Plt Count MPV Immature Gran % (Auto) Neut % (Auto) Lymph % (Auto) [place] % (Auto) Eos % (Auto) Baso % (Auto) Neut # (Auto) Lymph # (Auto) [place] # (Auto) Eos # (Auto) Baso # (Auto) Immature Gran # (Auto) Acanthocytes (Spur) Sodium 123 L Potassium 5.0 Chloride 89 L Carbon Dioxide 28 Anion Gap 7.0 BUN 17 Creatinine 0.38 L Est Cr Clr Drug Dosing 182.9 Est GFR ( Amer) 145.2 Est GFR (Non-Af Amer) 125.3 BUN/Creatinine Ratio 45.1 H Glucose 119 H Calcium 9.5 Phosphorus 4.3 D Magnesium Albumin 2.4 L Urine Osmolality 211 L Ur Random Sodium 14 Ur Random Potassium 14.8 Carbamazepine 10/21/20 10/21/20 10/21/20 08:06 08:06 08:06 WBC 5.94 RBC 3.47 L Hgb 10.9 L Hct 31.5 L MCV 90.8 MCH 31.4 MCHC 34.6 RDW Std Deviation 49.2 H RDW Coeff of Nazanin 14.7 H Plt Count 66 L MPV 10.4 Immature Gran % (Auto) 6.9 Neut % (Auto) 53.0 Lymph % (Auto) 13.8 [place] % (Auto) 25.6 Eos % (Auto) 0.0 Baso % (Auto) 0.7 Neut # (Auto) 3.15 Lymph # (Auto) 0.82 L [place] # (Auto) 1.52 H Eos # (Auto) 0.00 Baso # (Auto) 0.04 Immature Gran # (Auto) 0.41 H Acanthocytes (Spur) 1+ Sodium Cancelled 127 L Potassium Cancelled 4.7 Chloride Cancelled 91 L Carbon Dioxide Cancelled 29 Anion Gap Cancelled 7.0 BUN Cancelled 21 H Creatinine Cancelled 0.30 L Est Cr Clr Drug Dosing Cancelled 231.6 Est GFR ( Amer) Cancelled > 150.0 Est GFR (Non-Af Amer) Cancelled 135.4 BUN/Creatinine Ratio Cancelled 71.3 H Glucose Cancelled 87 Calcium Cancelled 9.1 Phosphorus Cancelled 3.7 Magnesium 2.2 Albumin Cancelled 2.3 L Urine Osmolality Ur Random Sodium Ur Random Potassium Carbamazepine 10/21/20 10:39 WBC RBC Hgb Hct MCV MCH MCHC RDW Std Deviation RDW Coeff of Nazanin Plt Count MPV Immature Gran % (Auto) Neut % (Auto) Lymph % (Auto) [place] % (Auto) Eos % (Auto) Baso % (Auto) Neut # (Auto) Lymph # (Auto) [place] # (Auto) Eos # (Auto) Baso # (Auto) Immature Gran # (Auto) Acanthocytes (Spur) Sodium Potassium Chloride Carbon Dioxide Anion Gap BUN Creatinine Est Cr Clr Drug Dosing Est GFR ( Amer) Est GFR (Non-Af Amer) BUN/Creatinine Ratio Glucose Calcium Phosphorus Magnesium Albumin Urine Osmolality Ur Random Sodium Ur Random Potassium Carbamazepine 6.5 PG Care Time/CCT Total # of Minutes Spent Total Time Spent with Patient: Total time spent is greater than 50% in coordination of care (as documented) at patient's floor/unit and/or counseling patient: Coding Level of Care Code 86488 Subseq Hosp Care Lvl 2 Diagnoses Hyponatremia E87.1
[2020-10-21] MEDS: carBAMazepine 200 MG TABLET PO SCH ×2 (11:57→20:17)
--- NOTE | 2020-10-21 12:46 | Communication Note ---
Date of Service: October 21, 2020 I evaluated Nikia again today via video using [employer] and spoke with her mother and briefly observed the patient's behavior. She has been very lethargic since yesterday after having been up most of the prior evening and remains lethargic today. No typical seizure activity is reported and there may be some occasional eye blinking and deviation of the eyes but it is not accompanied by anything else On my assessment she was arousable made eye contact followed a few simple commands such as opening and closing her eyes and seemed to recognize my face on the cell phone camera but beyond this exam was limited. I certainly saw nothing that would construe seizure activity Her Tegretol level is now down to 6.5 in the agent has been restarted at 200 twice a day, her other medical is been raised a bit to 200 twice a day, the Valium remains at 5 mg twice a day, the Depakote dose is stable and she is now on relatively low-dose Keppra 500 mg twice a day She continues to have issues with mild oxygen desaturation at night and still has pneumonia and is on antibiotics and is into day #12 of her documented Covid infection Some of this lethargy may reflect the effects of multiple anticonvulsants certainly the addition of Keppra even low-dose might be responsible but I would like to give this a little more time as it appears that the use of Keppra here was needed to break the clinical seizure activity and the EEG improved with less generalized polyspike and wave activity and no evidence for subclinical status epilepticus I will check another EEG tomorrow I will be visiting by video I will certainly in his room and evaluate her her mother feels that would be of value but for now I would make any other changes in her management or drug doses Jt Liu MD
[2020-10-21] MEDS: LEVOTHYROXINE SODIUM 200 MCG TABLET PEG SCH (20:17)
[2020-10-21] MEDS: AZITHROMYCIN 500 MG in DEXTROSE 5% 250 ML IV SCH (20:35)
[2020-10-21] MEDS: cefTRIAXone SODIUM 2,000 MG in DEXTROSE 5% 50 ML IV SCH (23:14)
--- NOTE | 2020-10-21 23:27 | Hospitalist Progress Note ---
Date of Service October 21, 2020 Assessment & Plan (1) Generalized epilepsy: Mother reports last seizure that she witnessed was on Sunday; however, I have some concern for seizure activity with eye movements. Follows with Dr. Liu. - Adjusting seizure meds: * Lamotrigine 200mg PO BID (730 & 1800) * Divalproex 625mg PO BID (730 & 1800) * resumed carbamazepine at 200 mg BID due to level reaching 6. * Added Keppra on evening of 10/18 - Neurology consult and EEG: may consider repeat on 10/22 - EEG on 10/19 indicated non-convulsive status epilepticus. Attempted to transfer to [facility] per neurology request; however, they declined transfer as seizure had broken and she was responsive again. Family also not really interested in transfer when it was determined they could not go with her. Increased lamotrigine per neurology advice. (2) Acute hyponatremia: Sm=[id number]. Patient has had this worked up in the past - no clear explanation, thought possibly secondary to medication effects. Urine would indicate low solute as her urine osmolality is only 175. - 1L NSS given in the ED. - Nutrition consult to help improve protein intake. - Monitor Na levels -> No dramatic change today. Mother worried about 3rd spacing and pulmonary edema. Given that she is not much far off from baseline (mid-120s), we held free water boluses today and will monitor. consulted nephro:appreciate input. sodium level improved to 127-129 on 10/21 (3) COVID-19: Diagnosed on 10/08. - Convalescent plasma ordered on 10/17/2020. Pending arrival. - Continue dexamethasone 6 mg IV daily - Will hold off on remdesevir therapy for now - patient is 10 days out from her positive test. - Continue Lovenox 40mg BID - Continue Levalbuterol nebs - Continue supplemental O2 by trach collar. - Continue Robitussin - Will consult robotics mechanic, Dr. Madrigal. -continues to require high amounts of oxygen. (4) Pneumonia: Patient afebrile at present. No increase or purulent secretions per mother. Procalcitonin on 10/17 was negative. - Continue ceftriaxone and azithromycin for now; could taper/stop if pulmonology agrees. (5) Hypothyroid: Chronic. TSH was 2.9 in 08/2020. - Continue Synthroid 200mcg po daily put in to PEG tube. (6) Thrombocytopenia: levels have remained between 60-70s for past few days. will monitor. (7) DVT prophylaxis: Lovenox 40 mg SQ BID per Covid protocol Admission and Anticipated Discharge Date Admission Date: October 17, 2020 Subjective 50 yo female is resting comfortably with trach. Mother is at bedside. Review of Systems Review of Systems: All systems reviewed & are unremarkable except as noted in HPI & below Physical Exam Physical Exam: Constitutional: + physical limitations and + frail appearing Eyes: EOM intact bilaterally (Some reflexive eye movements); no conjunctival abnormality ENMT: external ear and nose normal, oropharynx normal Neck: trachea midline, no thyromegaly + tracheostomy present Respiratory: no respiratory distress Auscultation: + crackles Cardiovascular: Rate/Rhythm: regular rhythm and + tachycardic Heart Sounds: normal S1 and normal S2 Extremities: + edema (Very mild on hands.) Gastrointestinal (Abdomen): Inspection/Auscultation: + abdomen abnormal to inspection (PEG tube) and abdomen not distended Percussion/Palpation: abdomen nontender Musculoskeletal: no cyanosis or clubbing, extremities motor strength 5/5 Skin: no rashes, warm and dry Neurologic: awake; + does not move all extremities Psychiatric: Orientation: cooperative; + not alert and + not oriented to person Results & Data Results & Data ([facility]) Vital Signs (Past 12 Hours) Vital Signs Temp Pulse Resp BP Pulse Ox 10/21/20 23:19 37.3 C 78 14 106/66 92 10/21/20 20:39 89 20 89 L 10/21/20 16:47 125/78 10/21/20 16:45 36.9 C 79 16 89 L PG Care Time/CCT Total # of Minutes Spent Total Time Spent with Patient: Total time spent is greater than 50% in coordination of care (as documented) at patient's floor/unit and/or counseling patient: Coding Level of Care Code 21023 Subseq Hosp Care Lvl 3 Diagnoses Generalized epilepsy G40.309 Acute hyponatremia E87.1 COVID-19 U07.1 Pneumonia J18.9 Laterality: unspecified laterality Lung location: unspecified part of lung Pneumonia type: due to unspecified organism Hypothyroid E03.9 Hypothyroidism type: unspecified Thrombocytopenia D69.6 DVT prophylaxis Z29.9 (1) Hypothyroid Hypothyroidism type: unspecified Qualified Code(s): E03.9 - Hypothyroidism, unspecified (2) Pneumonia Laterality: unspecified laterality Lung location: unspecified part of lung Pneumonia type: due to unspecified organism Qualified Code(s): J18.9 - Pneumonia, unspecified organism
[2020-10-22] MEDS: guaiFENesin SUGAR FREE 200 MG/10 ML UDC PEG SCH ×4 (06:26→23:06)
[2020-10-22] MEDS: LEVALBUTEROL HCL 1.25 MG/3 ML NEB NEB SCH ×2 (07:54→19:38)
[2020-10-22] MEDS: lamoTRIgine 100 MG TAB PO SCH ×2 (08:09→17:40)
[2020-10-22] MEDS: diazePAM 5 MG TABLET PO SCH ×2 (08:10→17:41)
[2020-10-22] MEDS: VALPROIC ACID SOLN 500 MG/10 ML UDC PO SCH ×2 (08:11→17:57)
[2020-10-22] MEDS: ENOXAPARIN INJ 40 MG/0.4 ML SYR SQ SCH (08:13)
[2020-10-22] MEDS: dexAMETHasone 6 MG in SYRINGE 0 ML IV SCH (08:14)
[2020-10-22] MEDS: carBAMazepine 200 MG TABLET PO SCH ×2 (08:15→18:05)
[2020-10-22] MEDS: ACETAMINOPHEN SUSP 325 MG/10.15 ML UDC PEG PRN ×2 (08:16→17:58)
[2020-10-22 11:08] LABS: Base Excess VBG 4.7 mEq/L; Oxygen Saturation VBG 85.3 %; pH VBG 7.37 (7.36-7.41)
--- NOTE | 2020-10-22 11:09 | XRay Report ---
XR chest 1V portable HISTORY: 50 years-old Female Hypoxemia acute hypoxia COMPARISON: Chest radiograph 10/19/2020 TECHNIQUE: Portable AP view of the chest FINDINGS: Patient is slightly rotated. Tracheostomy cannula is again noted overlying the midline. Right lung ap ex is partially obscured by the patient's chin. No pneumothorax. Right hemidiaphragmatic elevation. B ilateral mixed interstitial and alveolar opacities, right greater than left are again noted with mild progression on the right. Bilateral pleural effusions. Degenerative changes of the shoulders and spi ne. IMPRESSION: 1. Bilateral mixed interstitial and alveolar opacities are redemonstrated, mildly progressed within t he right lung. 2. Unchanged right hemidiaphragmatic elevation. 3. Small pleural effusions. ACT 112: Negative or not required by law. The above report was generated using voice recognition software. It may contain grammatical, syntax o r spelling errors. Electronically signed by: Hayes Corona M.D. 10/22/2020 11:07 AM
[2020-10-22 11:11] LABS: Hematocrit (blood only) 30.6 % (37-47); Hemoglobin 10.3 g/dL (12.0-16.0); Mean Corpuscular Hemoglobin 31.3 pg (25-34); Mean Corpuscular Hgb Conc 33.7 g/dL (32-36); Nucleated RBC # (auto) 0.02 K/uL (0-0); Nucleated RBC % (auto) 0.2 %; RDW Coefficient of Variation 14.9 % (11.5-14.5); RDW Standard Deviation 51.4 fL (36.4-46.3); Red Blood Count 3.29 M/uL (4.2-5.4); White Blood Count 8.96 K/uL (4.8-10.8)
[2020-10-22 11:23] LABS: Calcium 9.2 mg/dl (8.5-10.1); Creatinine Clr Calc Pharmacy 157.9 ml/min; Est GFR (African American) 138.3; Est GFR (Non-African American) 119.4; Magnesium 2.3 mg/dl (1.8-2.4); Potassium 4.7 mmol/L (3.5-5.1)
[2020-10-22 11:27] LABS: Mean Platelet Volume 9.6 fL (7.4-10.4); Platelet Count 74 K/uL (130-400)
[2020-10-22 11:28] LABS: Phosphorus 2.9 mg/dl (2.5-4.9)
--- NOTE | 2020-10-22 13:24 | Hospitalist Progress Note ---
Date of Service October 22, 2020 Assessment & Plan (1) Generalized epilepsy: Mother reports last seizure that she witnessed was on Sunday; however, I have some concern for seizure activity with eye movements. Follows with Dr. Liu. - Adjusting seizure meds: * Lamotrigine 200mg PO BID (730 & 1800) * Divalproex 625mg PO BID (730 & 1800) * Carbamazepine 200 mg BID (730 & 1800) * Added Keppra on evening of 10/18 - Neurology consulted and EEG. - EEG on 10/19 indicated non-convulsive status epilepticus. - Continues to be quite lethargic today. Unclear if this is infection, post- ictal, or meds. Repeat EEG planned. Discussed with neurology. Full cultures done to monitor for infection. (2) Acute hyponatremia: Qj=204. Patient has had this worked up in the past - no clear explanation, thought possibly secondary to medication effects. Urine would indicate low solute as her urine osmolality is only 175. - 1L NSS given in the ED. - Nutrition consult to help improve protein intake. - Improved today to 131 off her free-water flushes. Discussed with nephrology and likely largely low solute with some mild SIADH as well. (3) COVID-19: Diagnosed on 10/08. - Convalescent plasma ordered on 10/17/2020. Pending arrival. - Continue dexamethasone 6 mg IV daily - Will hold off on remdesevir therapy for now - patient is 10 days out from her positive test. - Continue Lovenox 40mg BID - Continue Levalbuterol nebs - Continue supplemental O2 by trach collar. - Continue Robitussin & vest (4) Pneumonia: Procalcitonin on 10/17 & 10.22 was negative. - Continue ceftriaxone and azithromycin for now (5) Hypothyroid: Chronic. TSH was 2.9 in 08/2020. - Continue Synthroid 200mcg po daily put in to PEG tube. (6) DVT prophylaxis: Lovenox 40 mg SQ BID per Covid protocol Admission and Anticipated Discharge Date Admission Date: October 17, 2020 Subjective Per mother's report, she has had 3 seizures overnight. This morning, she is sleeping. As her baseline, non-verbal. Physical Exam Constitutional: + physical limitations and + frail appearing Eyes: EOM intact bilaterally (Some reflexive eye movements); no conjunctival abnormality ENMT: external ear and nose normal, oropharynx normal Neck: trachea midline, no thyromegaly + tracheostomy present Respiratory: + labored breathing; no respiratory distress Auscultation: + crackles Cardiovascular: Rate/Rhythm: regular rhythm and + tachycardic Heart Sounds: normal S1 and normal S2 Extremities: + edema (Very mild on hands.) Gastrointestinal (Abdomen): Inspection/Auscultation: + abdomen abnormal to inspection (PEG tube) and abdomen not distended Percussion/Palpation: abdomen nontender Musculoskeletal: no cyanosis or clubbing, extremities motor strength 5/5 Skin: no rashes, warm and dry Neurologic: awake; + does not move all extremities Psychiatric: Orientation: cooperative; + not alert and + not oriented to person Genitourinary: + bladder abnormal to inspection (Suprapubic catheter) Results & Data Results & Data ([facility]) Vital Signs (Past 12 Hours) Vital Signs Temp Pulse Resp BP Pulse Ox 10/22/20 07:54 88 16 89 L 10/22/20 07:31 38 C H 84 16 125/80 89 L 10/22/20 06:33 78 20 91 10/22/20 03:38 73 93 10/22/20 01:34 73 93 PG Care Time/CCT Total # of Minutes Spent Total Time Spent with Patient: Total time spent is greater than 50% in coordination of care (as documented) at patient's floor/unit and/or counseling patient: Coding Level of Care Code 78200 Subseq Hosp Care Lvl 3 Diagnoses Generalized epilepsy G40.309 Acute hyponatremia E87.1 COVID-19 U07.1 Pneumonia J18.9 Laterality: unspecified laterality Lung location: unspecified part of lung Pneumonia type: due to unspecified organism Hypothyroid E03.9 Hypothyroidism type: unspecified DVT prophylaxis Z29.9 (1) Pneumonia Laterality: unspecified laterality Lung location: unspecified part of lung Pneumonia type: due to unspecified organism Qualified Code(s): J18.9 - Pneumonia, unspecified organism (2) Hypothyroid Hypothyroidism type: unspecified Qualified Code(s): E03.9 - Hypothyroidism, unspecified
[2020-10-22] MEDS: DOCUSATE SODIUM SYRUP 100 MG/10 ML UDC PEG SCH (15:02)
[2020-10-22 15:08] LABS: Appearance Urine Clear (Clear); Bilirubin Urine Negative (Negative); Blood Urine 2+ (Negative); Color Urine Yellow; Epithelial Cell Urine Auto >30 /lpf (0-5); Glucose Urine UA Negative (Negative); Ketones Urine Negative (Negative); Leukocyte Esterase Urine 2+ (Negative); Nitrite Urine Negative (Negative); Urobilinogen Urine Negative (Negative)
[2020-10-22 15:18] LABS: Protein Urine 1+ (Negative)
[2020-10-22 15:19] LABS: Sulfosalicylic Acid Urine Positive (Negative)
[2020-10-22 15:22] LABS: Bacteria Urine Automated 1+ (Negative)
--- NOTE | 2020-10-22 15:47 | Communication Note ---
Date of Service: October 22, 2020 Nikia was assessed by video visits on 2 occasions today the first at about 11:00 in the morning and a second at about 230. During the first visit she was lethargic and her mother described 3 overnight seizures which were a little atypical in that they were manifested by eye deviation and lasted about 4 minutes the first time and then about a minute each subsequent event and were associated with oxygen desaturation She has had no further events and while lethargic this morning when I saw her she was able to follow few commands I do not see any unusual eye movements or seizure-like activity and according to the mother she was then back to close to her old baseline for several hours prior to going back to sleep this afternoon just prior to my visit and no further abnormal motor activity was seen An EEG today was markedly improved. The background rhythm remains abnormally slow but I suspect this is her baseline and the sharp waves and spikes that characterize her prior recording and were occurring at a frequency of up to 1/s or on today's tracing very sparse after the initial few minutes of the recording and actually were absent for long intervals of time up to several minutes on and before appearing randomly over both hemispheres sometimes synchronously never in groups and is isolated sharp waves or spikes seemingly maximum over the frontocentral regions and without any clear clinical accompaniments on video EEG analysis I have discussed her case with Dr. Curiel and at this point we are simply going to continue the medications at the current doses i.e. Keppra 500 mg twice a day, Depakote 625 mg twice a day, Lamictal 200 mg twice a day Valium 5 mg twice a day and Tegretol 200 mg twice a day Her chest x-ray apparently looks somewhat worse antibiotics are going to be continued The reinstitution of Tegretol her sodium may again fall and with the azithromycin on board the Tegretol may bump up again I would suggest therefore that we get drug levels of Depakote, Tegretol, and Lamictal on Sunday. I see no point in getting a Keppra level as by the time we get it back on the chart over a week will have passed and if breakthrough seizures occur to a significant degree and other drug levels are stable I would probably simply bump the Keppra up to 750 mg twice a day and continue to observe her I will evaluate her again tomorrow but for now I do not think we need to do another EEG for the foreseeable future unless things would change Jt Liu MD
--- NOTE | 2020-10-22 15:54 | Electroencephalogram ---
EEG Procedure Note Date of Service October 22, 2020 Start / End Times Start Time: 117 End Time: 137 Referring Physician Jt Liu MD History Mental retardation with chronic seizure disorder likely a [place] variant now with Covid 19 pneumonia, possible secondary bacterial pneumonitis and with increasing seizure activity Home Medication List Medication Instructions Recorded Confirmed Type diazepam 5 mg PO BID 11/14/18 10/17/20 History lamotrigine [Lamictal] 100 mg PO BIDM 11/14/18 10/17/20 History magnesium oxide 200 mg PO Q2D 11/14/18 10/17/20 History magnesium oxide 400 mg PO Q2D 11/14/18 10/17/20 History multivitamin 1 tab PO QAM 11/14/18 10/17/20 History carbamazepine [Tegretol] 400 mg PO QPM 01/15/19 10/17/20 History divalproex 625 mg PO BID 01/15/19 10/17/20 History carbamazepine [Tegretol] 200 mg PO QAM 12/22/19 10/17/20 History guaifenesin 600 mg PO BID 12/22/19 10/17/20 History pseudoephedrine HCl 30 mg tablet 30 mg PO DAILY PRN 01/29/20 10/17/20 History oxybutynin chloride 10 mg 10 mg PO DAILY PRN tab 08/16/20 10/17/20 History tablet,extended release 24 hr levothyroxine 200 mcg tablet 200 mcg PO DAILY #30 tab 09/07/20 10/17/20 Rx docusate sodium [Colace] 100 mg PO DAILY 10/17/20 10/17/20 History ibuprofen 400 - 600 mg PO UD PRN 10/17/20 10/17/20 History levalbuterol HCl 0.63 mg INHALATION Q8 PRN 10/17/20 10/17/20 History Inpatient Medication List Acetaminophen (Acetaminophen Susp 325 Mg/10.15 Ml Udc) 650 mg PEG Q6H PRN PRN Reason: Pain or Fever Stop: 11/18/20 15:21 Last Admin: 10/22/20 08:16 Dose: 650 mg Documented by: [id number] Admin: 10/20/20 22:22 Dose: 650 mg Documented by: [id number] Admin: 10/19/20 20:01 Dose: 650 mg Documented by: [id number] Carbamazepine (Carbamazepine 200 Mg Tablet) 200 mg PO BID RUDDY Stop: 11/20/20 11:29 Last Admin: 10/22/20 08:15 Dose: 200 mg Documented by: [id number] Admin: 10/21/20 20:17 Dose: 200 mg Documented by: [id number] Admin: 10/21/20 11:57 Dose: 200 mg Documented by: [id number] Diazepam (Diazepam 5 Mg Tablet) 5 mg PO 0730,1800 RUDDY Stop: 11/17/20 17:59 Last Admin: 10/22/20 08:10 Dose: 5 mg Documented by: [id number] Admin: 10/21/20 18:39 Dose: 5 mg Documented by: [id number] Admin: 10/21/20 08:18 Dose: 5 mg Documented by: [id number] Admin: 10/20/20 17:51 Dose: 5 mg Documented by: [id number] Admin: 10/20/20 08:29 Dose: 5 mg Documented by: [id number] Admin: 10/19/20 19:21 Dose: 5 mg Documented by: [id number] Admin: 10/19/20 07:54 Dose: 5 mg Documented by: [id number] Admin: 10/18/20 18:08 Dose: 5 mg Documented by: [id number] Docusate Sodium (Docusate Sodium Syrup 100 Mg/10 Ml Udc) 100 mg PEG 0730 RUDDY Stop: 11/19/20 07:29 Last Admin: 10/22/20 15:02 Dose: Not Given Documented by: [id number] Admin: 10/21/20 08:04 Dose: Not Given Documented by: [id number] Admin: 10/20/20 08:21 Dose: 100 mg Documented by: [id number] Guaifenesin (Guaifenesin Sugar Free 200 Mg/10 Ml Udc) 200 mg PEG Q6H RUDDY Stop: 11/18/20 17:59 Last Admin: 10/22/20 14:17 Dose: Not Given Documented by: [id number] Admin: 10/22/20 06:26 Dose: 200 mg Documented by: [id number] Admin: 10/21/20 23:17 Dose: 200 mg Documented by: [id number] Admin: 10/21/20 18:39 Dose: 200 mg Documented by: [id number] Admin: 10/21/20 11:57 Dose: 200 mg Documented by: [id number] Admin: 10/21/20 05:52 Dose: 200 mg Documented by: [id number] Admin: 10/20/20 22:22 Dose: 200 mg Documented by: [id number] Admin: 10/20/20 16:21 Dose: 200 mg Documented by: [id number] Admin: 10/20/20 13:08 Dose: 200 mg Documented by: [id number] Admin: 10/20/20 05:07 Dose: 200 mg Documented by: [id number] Admin: 10/19/20 23:19 Dose: 200 mg Documented by: [id number] Admin: 10/19/20 19:20 Dose: 200 mg Documented by: [id number] Ceftriaxone Sodium 2,000 mg/ (Dextrose) 70 mls @ 100 mls/hr IV Q24H RUDDY; Protocol Stop: 10/25/20 21:59 Last Infusion: 10/21/20 23:46 Dose: 0 mls/hr Documented by: [id number] Admin: 10/21/20 23:14 Dose: 100 mls/hr Documented by: [id number] Infusion: 10/20/20 23:03 Dose: 0 mls/hr Documented by: [id number] Admin: 10/20/20 22:21 Dose: 100 mls/hr Documented by: [id number] Infusion: 10/19/20 23:12 Dose: 0 mls/hr Documented by: [id number] Admin: 10/19/20 22:26 Dose: 100 mls/hr Documented by: [id number] Infusion: 10/19/20 00:10 Dose: 0 mls/hr Documented by: [id number] Admin: 10/18/20 23:28 Dose: 100 mls/hr Documented by: [id number] Azithromycin 500 mg/ Dextrose 255 mls @ 125 mls/hr IV Q24H RUDDY Stop: 10/25/20 19:59 Last Infusion: 10/21/20 23:14 Dose: 0 mls/hr Documented by: [id number] Admin: 10/21/20 20:35 Dose: 125 mls/hr Documented by: [id number] Infusion: 10/20/20 22:15 Dose: 0 mls/hr Documented by: [id number] Admin: 10/20/20 20:12 Dose: 125 mls/hr Documented by: [id number] Infusion: 10/19/20 22:20 Dose: 0 mls/hr Documented by: [id number] Admin: 10/19/20 19:20 Dose: 125 mls/hr Documented by: [id number] Infusion: 10/19/20 02:15 Dose: 0 mls/hr Documented by: [id number] Infusion: 10/19/20 00:10 Dose: 125 mls/hr Documented by: [id number] Infusion: 10/18/20 21:24 Dose: 0 mls/hr Documented by: [id number] Admin: 10/18/20 20:53 Dose: 125 mls/hr Documented by: [id number] Dexamethasone Sodium Phosphate (6 mg/ Syringe) 1.5 mls @ 1 mls/min IV DAILY RUDDY Stop: 11/17/20 01:44 Last Admin: 10/22/20 08:14 Dose: 1 mls/min Documented by: [id number] Admin: 10/21/20 08:00 Dose: 1 mls/min Documented by: [id number] Admin: 10/20/20 08:29 Dose: 1 mls/min Documented by: [id number] Admin: 10/19/20 07:54 Dose: 1 mls/min Documented by: [id number] Admin: 10/18/20 08:56 Dose: 1 mls/min Documented by: [id number] Admin: 10/18/20 02:35 Dose: 1 mls/min Documented by: [id number] Lamotrigine (Lamotrigine 100 Mg Tab) 200 mg PO DAILY@0730,1800 RUDDY Stop: 11/18/20 17:59 Last Admin: 10/22/20 08:09 Dose: 200 mg Documented by: [id number] Admin: 10/21/20 18:39 Dose: 200 mg Documented by: [id number] Admin: 10/21/20 07:59 Dose: 200 mg Documented by: [id number] Admin: 10/20/20 16:20 Dose: 200 mg Documented by: [id number] Admin: 10/20/20 08:21 Dose: 200 mg Documented by: [id number] Admin: 10/19/20 19:21 Dose: 200 mg Documented by: [id number] Levalbuterol HCl (Levalbuterol Hcl 0.63 Mg/3 Ml Neb) 0.63 mg INH Q8 PRN PRN Reason: Wheezing Stop: 11/17/20 01:11 Last Admin: 10/19/20 15:36 Dose: 0.63 mg Documented by: [id number] Admin: 10/19/20 07:50 Dose: 0.63 mg Documented by: [id number] Levalbuterol HCl (Levalbuterol Hcl 1.25 Mg/3 Ml Neb) 1.25 mg NEB BIDR RUDDY Stop: 11/18/20 18:59 Last Admin: 10/22/20 07:54 Dose: 1.25 mg Documented by: [id number] Admin: 10/21/20 20:39 Dose: 1.25 mg Documented by: [id number] Admin: 10/21/20 08:11 Dose: 1.25 mg Documented by: [id number] Admin: 10/20/20 19:24 Dose: 1.25 mg Documented by: [id number] Admin: 10/20/20 07:57 Dose: 1.25 mg Documented by: [id number] Admin: 10/19/20 20:28 Dose: 1.25 mg Documented by: [id number] Levetiracetam (Levetiracetam Soln 500 Mg/5 Ml Udp) 500 mg PEG BID RUDDY Stop: 11/18/20 20:59 Last Admin: 10/22/20 08:14 Dose: 500 mg Documented by: [id number] Admin: 10/21/20 20:17 Dose: 500 mg Documented by: [id number] Admin: 10/21/20 07:59 Dose: 500 mg Documented by: [id number] Admin: 10/20/20 20:23 Dose: 500 mg Documented by: [id number] Admin: 10/20/20 08:22 Dose: 500 mg Documented by: [id number] Admin: 10/19/20 20:02 Dose: 500 mg Documented by: [id number] Levothyroxine Sodium (Levothyroxine Sodium 200 Mcg Tablet) 200 mcg PEG HS RUDDY Stop: 11/18/20 22:59 Last Admin: 10/21/20 20:17 Dose: 200 mcg Documented by: [id number] Admin: 10/20/20 20:24 Dose: 200 mcg Documented by: [id number] Admin: 10/19/20 23:11 Dose: 200 mcg Documented by: [id number] Nutritional Formula (Peptamen Intense Vhp 1.0 Nelson 1,000 Ml Bag) 1,000 ml PEG UD RUDDY; Protocol Stop: 11/17/20 14:59 Last Admin: 10/21/20 23:22 Dose: 1,000 ml Documented by: [id number] Admin: 10/21/20 01:37 Dose: 1,000 ml Documented by: [id number] Admin: 10/20/20 05:23 Dose: 1,000 ml Documented by: [id number] Admin: 10/18/20 16:17 Dose: 1,000 ml Documented by: [id number] Valproic Acid (Valproic Acid Soln 500 Mg/10 Ml Udc) 625 mg PO DAILY@0730,1800 [facility] Stop: 11/18/20 17:59 Last Admin: 10/22/20 08:11 Dose: 625 mg Documented by: [id number] Admin: 10/21/20 18:39 Dose: 625 mg Documented by: [id number] Admin: 10/21/20 08:01 Dose: 625 mg Documented by: [id number] Admin: 10/20/20 16:21 Dose: 625 mg Documented by: [id number] Admin: 10/20/20 08:19 Dose: 625 mg Documented by: [id number] Admin: 10/19/20 19:20 Dose: 625 mg Documented by: [id number] Discontinued Medications Acetaminophen (Acetaminophen 325 Mg Tab) 650 mg PO Q4H PRN PRN Reason: pain/fever Stop: 11/17/20 01:11 Last Admin: 10/18/20 02:35 Dose: 650 mg Documented by: [id number] Azithromycin (Azithromycin Susp 200 Mg/5 Ml 22.5 Ml Homepack) 500 mg PO NOW ONE Stop: 10/17/20 20:54 Last Admin: 10/17/20 21:44 Dose: 500 mg Documented by: [id number] Carbamazepine (Carbamazepine 200 Mg Tablet) 200 mg PO QAM [facility] Stop: 11/17/20 08:59 Last Admin: 10/18/20 08:55 Dose: 200 mg Documented by: [id number] Carbamazepine (Carbamazepine 200 Mg Tablet) 200 mg PO DAILY@0730 [facility] Stop: 11/18/20 07:29 Last Admin: 10/19/20 08:32 Dose: 200 mg Documented by: [id number] Carbamazepine (Carbamazepine 200 Mg Tablet) 400 mg PO DAILY@1800 RUDDY Stop: 11/17/20 17:59 Last Admin: 10/18/20 18:09 Dose: 400 mg Documented by: [id number] Diazepam (Diazepam 5 Mg Tablet) 5 mg PO BID RUDDY Stop: 11/17/20 08:59 Last Admin: 10/18/20 09:18 Dose: 5 mg Documented by: [id number] Divalproex Sodium (Divalproex Sodium Sprinkle 125 Mg Cap) 625 mg PO BID RUDDY Stop: 11/17/20 08:59 Last Admin: 10/18/20 08:55 Dose: 625 mg Documented by: [id number] Divalproex Sodium (Divalproex Sodium Sprinkle 125 Mg Cap) 625 mg PO 0730,1800 [facility] Stop: 11/17/20 17:59 Last Admin: 10/19/20 08:29 Dose: 625 mg Documented by: [id number] Admin: 10/18/20 18:07 Dose: 625 mg Documented by: [id number] Docusate Sodium (Docusate Sodium 100 Mg Cap) 100 mg PO DAILY [facility] Stop: 11/17/20 08:59 Last Admin: 10/18/20 08:55 Dose: 100 mg Documented by: [id number] Docusate Sodium (Docusate Sodium 100 Mg Cap) 100 mg PO 0730 [facility] Stop: 11/18/20 07:29 Last Admin: 10/19/20 07:57 Dose: 100 mg Documented by: [id number] Enoxaparin Sodium (Enoxaparin Inj 40 Mg/0.4 Ml Syr) 40 mg SQ Q12H [facility] Stop: 11/17/20 07:59 Last Admin: 10/22/20 08:13 Dose: 40 mg Documented by: [id number] Admin: 10/21/20 20:36 Dose: 40 mg Documented by: [id number] Admin: 10/21/20 08:02 Dose: 40 mg Documented by: [id number] Admin: 10/20/20 20:12 Dose: 40 mg Documented by: [id number] Admin: 10/20/20 08:19 Dose: 40 mg Documented by: [id number] Admin: 10/19/20 19:21 Dose: 40 mg Documented by: [id number] Admin: 10/19/20 07:58 Dose: 40 mg Documented by: [id number] Admin: 10/18/20 20:53 Dose: 40 mg Documented by: [id number] Admin: 10/18/20 08:56 Dose: 40 mg Documented by: [id number] Fluconazole (Fluconazole 50 Mg Tab) 150 mg PO NOW ONE Stop: 10/20/20 00:30 Last Admin: 10/20/20 02:04 Dose: 150 mg Documented by: [id number] Guaifenesin (Guaifenesin 600 Mg Tabcr) 600 mg PO BID RUDDY Stop: 11/17/20 08:59 Last Admin: 10/18/20 08:56 Dose: 600 mg Documented by: [id number] Guaifenesin (Guaifenesin 600 Mg Tabcr) 600 mg PO 0730,1800 [facility] Stop: 11/17/20 17:59 Last Admin: 10/19/20 08:31 Dose: 600 mg Documented by: [id number] Admin: 10/18/20 18:07 Dose: 600 mg Documented by: [id number] Sodium Chloride (Nss 1000ml) 1,000 mls @ 999 mls/hr IV .Q1H1M ONE Stop: 10/17/20 20:32 Last Infusion: 10/17/20 20:49 Dose: 0 mls/hr Documented by: [id number] Admin: 10/17/20 19:45 Dose: 999 mls/hr Documented by: [id number] Ceftriaxone Sodium (Rocephin) 1,000 mg in 50 mls @ 100 mls/hr IV NOW STA Stop: 10/17/20 21:22 Last Infusion: 10/17/20 22:16 Dose: 0 mls/hr Documented by: [id number] Admin: 10/17/20 21:44 Dose: 100 mls/hr Documented by: [id number] Levetiracetam 1,000 mg/ Sodium (Chloride) 110 mls @ 440 mls/hr IV NOW ONE Stop: 10/18/20 17:44 Last Infusion: 10/18/20 18:36 Dose: 0 mls/hr Documented by: [id number] Admin: 10/18/20 18:06 Dose: 440 mls/hr Documented by: [id number] Lamotrigine (Lamotrigine 100 Mg Tab) 100 mg PO BIDM RUDDY Stop: 11/17/20 07:59 Last Admin: 10/18/20 08:55 Dose: 100 mg Documented by: [id number] Lamotrigine (Lamotrigine 100 Mg Tab) 100 mg PO 0730,1800 RUDDY Stop: 11/17/20 17:59 Last Admin: 10/19/20 08:30 Dose: 100 mg Documented by: [id number] Admin: 10/18/20 18:08 Dose: 100 mg Documented by: [id number] Lamotrigine (Lamotrigine 100 Mg Tab) 100 mg PO NOW STA Stop: 10/19/20 15:26 Last Admin: 10/19/20 16:30 Dose: 100 mg Documented by: [id number] Levalbuterol HCl (Levalbuterol Hcl 1.25 Mg/3 Ml Neb) 1.25 mg NEB NOW STA Stop: 10/17/20 21:14 Last Admin: 10/17/20 21:27 Dose: 1.25 mg Documented by: [id number] Levetiracetam (Levetiracetam 500 Mg Tab) 500 mg PO BID RUDDY Stop: 11/17/20 20:59 Last Admin: 10/18/20 23:10 Dose: Not Given Documented by: [id number] Levetiracetam (Levetiracetam Soln 500 Mg/5 Ml Udp) 500 mg PO BID RUDDY Stop: 11/17/20 21:14 Last Admin: 10/19/20 07:57 Dose: 500 mg Documented by: [id number] Admin: 10/18/20 22:12 Dose: 500 mg Documented by: [id number] Levothyroxine Sodium (Levothyroxine Sodium 200 Mcg Tablet) 200 mcg PO PM RUDDY Stop: 11/17/20 20:59 Last Admin: 10/18/20 20:53 Dose: 200 mcg Documented by: [id number] Miscellaneous Information (Nursing To Pharmacy Communication) 1 ea N/A TODAY RUDDY Stop: 11/17/20 20:59 Last Admin: 10/18/20 23:10 Dose: Not Given Documented by: [id number] Sterile Water (Tube Feeding Water Flush) 150 ml PEG Q4H RUDDY Stop: 11/17/20 14:59 Last Admin: 10/19/20 05:53 Dose: 150 ml Documented by: [id number] Admin: 10/19/20 02:15 Dose: 150 ml Documented by: [id number] Admin: 10/18/20 23:28 Dose: 150 ml Documented by: [id number] Admin: 10/18/20 18:56 Dose: 150 ml Documented by: [id number] Admin: 10/18/20 16:13 Dose: 150 ml Documented by: [id number] Description This is a 21 electrode EEG with a single channel dedicated to limited EKG. The electrodes were placed in accordance with the International 10-20 system. This EEG was done as a bedside recording with simultaneous video analysis of patient movement and behavior. Under these conditions there is no normal background rhythm in the alpha range. The basic rhythm appears to be maximum posterior head regions, is in the mid theta range at 6 to 7 Hz and is of modest voltage. Higher amplitude slightly slower theta delta activity seen over the central regions. Beta activity is seen to some degree bifrontally but is largely obscured The tracing continues to show spike and sharp waves occurring as single events sometimes simultaneous and synchronous sometimes independently generally occurring over the frontal or frontal central regions at a variable frequency During the initial phase of the tracing these events would occur every 3 seconds or so but as the tracing proceeded the became much less frequent occurring randomly but no particular fixed interval At no time was there any clear evidence for clinical manifestations based on observation of the somewhat limited video recording Interpretation Current tracing remains abnormal with evidence for a moderate generalized nonspecific encephalopathy punctuated by periodic independent and to some degree synchronous frontocentral sharp waves occurring as isolated events The tracing is much improved compared to the last recording of 10/20 revealing now an equivalent degree of slowing but a much reduced frequency of the sharp waves and is very much improved compared to a prior recording of 10/19 when the sharp waves were at a sufficient frequency to raise concern about nonconvulsive status epilepticus. This is no longer a significant consideration Clinical Correlation Persistently abnormal but much improved EEG consistent with a generalized encephalopathy with underlying potentially epileptogenic activity of multifocal type. Judging from the clinical history this pattern may well be the patient's baseline and concern for nonconvulsive status epilepticus would not be justified at this point based on the nature of the current tracing Jt Liu MD
[2020-10-22 19:09] LABS: Adenovirus PCR Not Detected (NotDetected); Bordetella parapertussis PCR Not Detected (NotDetected); Bordetella pertussis PCR Not Detected (NotDetected); Chlamydia pneumoniae PCR Not Detected (NotDetected); Coronavirus 229E PCR Not Detected (NotDetected); Coronavirus HKU1 PCR Not Detected (NotDetected); Coronavirus NL63 PCR Not Detected (NotDetected); Coronavirus OC43PCR Not Detected (NotDetected); Human Metapneumovirus PCR Not Detected (NotDetected); Influenza A PCR Not Detected (NotDetected); Influenza B PCR Not Detected (NotDetected); Mycoplasma pneumoniae PCR Not Detected (NotDetected); Parainfluenza Virus 1 PCR Not Detected (NotDetected); Parainfluenza Virus 2 PCR Not Detected (NotDetected); Parainfluenza Virus 3 PCR Not Detected (NotDetected); Parainfluenza Virus 4 PCR Not Detected (NotDetected); Respiratory Syncytial VirusPCR Not Detected (NotDetected); Rhinovirus/Enterovirus PCR Not Detected (NotDetected)
[2020-10-22 19:39] LABS: Coronavirus CoV-2 (COVID19)PCR DETECTED (NotDetected)
[2020-10-22] MEDS: cefTRIAXone SODIUM 2,000 MG in DEXTROSE 5% 50 ML IV SCH (21:00)
[2020-10-22] MEDS: AZITHROMYCIN 500 MG in DEXTROSE 5% 250 ML IV SCH (21:01)
[2020-10-22] MEDS: LEVOTHYROXINE SODIUM 200 MCG TABLET PEG SCH (21:02)
[2020-10-22] MEDS: PEPTAMEN INTENSE VHP 1.0 CAL 1,000 ML BAG PEG SCH (22:27)
[2020-10-23] MEDS: guaiFENesin SUGAR FREE 200 MG/10 ML UDC PEG SCH ×4 (05:47→22:43)
[2020-10-23] MEDS ORDERED: VANCOMYCIN CONSULT ACTIVE PRN (07:57)
[2020-10-23] MEDS: LEVALBUTEROL HCL 1.25 MG/3 ML NEB NEB SCH ×2 (08:19→20:03)
[2020-10-23] MEDS ORDERED: VANCOMYCIN HCL 2,250 MG in SODIUM CHLORIDE 0.9% 500 ML IV SCH (08:30)
[2020-10-23] MEDS: DOCUSATE SODIUM SYRUP 100 MG/10 ML UDC PEG SCH (08:51)
[2020-10-23] MEDS: lamoTRIgine 100 MG TAB PO SCH ×2 (08:52→18:00)
[2020-10-23] MEDS: VALPROIC ACID SOLN 500 MG/10 ML UDC PO SCH ×2 (08:53→18:02)
[2020-10-23] MEDS: dexAMETHasone 6 MG in SYRINGE 0 ML IV SCH (08:54)
[2020-10-23] MEDS: carBAMazepine 200 MG TABLET PO SCH ×2 (08:55→18:04)
[2020-10-23] MEDS: diazePAM 5 MG TABLET PO SCH ×2 (09:06→18:01)
--- NOTE | 2020-10-23 09:14 | Pharmacy Report ---
Pharmacy Abx Initial Consult - Date of Service October 23, 2020 - Pharmacy Dosing Scope Date of Consult: 10/23/20 Consultation requested by: Dr. Andre Curiel Pharmacy is consulted to initiate VANCOMYCIN IV dosing therapy, order appropriate labs and adjust drug dose/frequency. - Subjective The patient is a 50 year old F admitted on 10/17/20 22:27. - Objective Height: 4 ft 10 in Weight: 98.6 kg Vital Signs (Past 12hrs): Vital Signs Temp Pulse Resp BP Pulse Ox 10/23/20 08:47 37.3 C 79 18 108/72 91 10/23/20 08:23 80 18 92 Lab Results (24hrs): Laboratory Tests (24 Hours) 10/22/20 10/22/20 10/22/20 10:54 10:54 10:54 WBC 8.96 Creatinine 0.44 L Est Cr Clr Drug Dosing 157.9 Procalcitonin 0.07 Micro Results: 10/22/20 Unknown Gram Stain - Final Sputum,Trach 10/22/20 10:55 Anaerobic Blood Culture - Pending Blood 10/17/20 19:38 Aerobic Blood Culture - Final Blood No growth in Aerobic bottle after 5 days. Anaerobic Blood Culture - Final 10/17/20 19:45 Aerobic Blood Culture - Final Blood No growth in Aerobic bottle after 5 days. Anaerobic Blood Culture - Final No growth in Anaerobic bottle after 5 days. 10/22/20 Unknown Urine Culture - Pending Urine,Straight Cath 10/22/20 10:20 Aerobic Blood Culture - Pending Blood Anaerobic Blood Culture - Pending 10/17/20 21:57 Urine Culture - Final Urine,Clean Catch Three types of organisms present, all high counts. Repeat collection recommended. No further identifications or sensitivities to follow. - Risk Factors for Resistance * Current hospitalization > 5 days * Chronic trach, G-tube, suprapubic catheter - Assessment & Plan Assessment 50 year old F with mental retardation. Initially admitted with hypoxia following +Covid test on 10/08. Patient lives with her parents (also both +COVID, mild sx) and has a chronic trach, G-tube, and suprapubic catheter. Has been on Rocephin + Zithromax since 10/17, now adding Vanc d/t GPC in blood cx from 10/22. Plan VANCOMYCIN for treatment of bacteremia. Vancomycin IV * Loading dose: 2250mg (~23 mg/kg) * Maintenance dose: 1250mg IV (~12.5 mg/kg) every 16 hours * Goal trough level for bacteremia : 15 to 20 mcg/mL * Trough level ordered for prior to the 2nd maintenance dose (not quite Css, but close monitoring) * Estimated PK Parameters: Vd 0.7 L/kg, Artem 0.076 hr-1, t1/2 ~9 hr * Will deviate from calculated Pk parameters as patient was admitted in Nov 2019 (weight/renal function same as today), ordered Vancomycin... Trough level from Vanc 1250mg IV q12h dose was 25.5 mcg/mL. Pk calculations based on that trough and subsequent vanc levels indicate that 1250mg IV q16h is likely appropriate for patient. Will check a trough level prior to Css due to altered Pk. Pharmacy will continue to follow and will adjust dose/frequency as necessary. Thank you.
--- NOTE | 2020-10-23 11:35 | Hospitalist Progress Note ---
Date of Service October 23, 2020 Assessment & Plan (1) Fever: Fevers to 38.0 starting on 10/23 with milder ones the day before. Per mother, she is usually quite low temperature, so even 37.5 is high for her. - Urine, blood, and sputum culture all drawn on 10/22 while on ceftriaxone and azithromycin for presumed CAP. - Procalcitonin negative on 10/22. MRSA swab positive on 10/22. - Blood cultures growing Gram(+) cocci in clusters, but PCR is negative. Started empiric vancomycin on 10/23. Will give 24-48 hours and watch cultures. (2) Generalized epilepsy: Mother reports last seizure that she witnessed was on Sunday; however, I have some concern for seizure activity with eye movements. Follows with Dr. Liu. - Adjusting seizure meds: * Lamotrigine 200mg PO BID (730 & 1800) * Divalproex 625mg PO BID (730 & 1800) * Carbamazepine 200 mg BID (730 & 1800) * Added Keppra on evening of 10/18 - Neurology consulted and EEG. - EEG on 10/19 indicated non-convulsive status epilepticus. EEG on 10/22 was improved and probably at the patient's baseline. - Much more alert today per mother. Improving. (3) Acute hyponatremia: Bu=097. Patient has had this worked up in the past - no clear explanation, thought possibly secondary to medication effects. Urine would indicate low solute as her urine osmolality is only 175. - 1L NSS given in the ED. - Nutrition consult to help improve protein intake. - Improved to 131 off her free-water flushes. Discussed with nephrology and likely largely low solute with some mild SIADH as well. - Monitor (4) COVID-19: Diagnosed on 10/08. - Convalescent plasma given on 10/18/2020. - Continue dexamethasone 6 mg IV daily (Finish on 10/26/2020). - Will hold off on remdesevir therapy for now - patient is 10 days out from her positive test. - Continue Lovenox 40mg BID - Continue Levalbuterol nebs - Continue supplemental O2 by trach collar. - Continue Robitussin & vest (5) Pneumonia: Procalcitonin on 10/17 & 10/22 was negative. - Finished ceftriaxone & azithromycin on 11/22/2020 (6) Hypothyroid: Chronic. TSH was 2.9 in 08/2020. - Continue Synthroid 200mcg po daily put in to PEG tube. (7) DVT prophylaxis: Lovenox 40 mg SQ BID per Covid protocol Admission and Anticipated Discharge Date Admission Date: October 17, 2020 Subjective Patient more alert today and actually able to shake head to some ROS. Reports no chest pain, shortness of breath, abdominal pain, nausea, or vomiting. Review of Systems Review of Systems: Unobtainable due to cognitive status Physical Exam Constitutional: + physical limitations and + frail appearing Eyes: EOM intact bilaterally; no conjunctival abnormality ENMT: external ear and nose normal, oropharynx normal Neck: trachea midline, no thyromegaly + tracheostomy present Respiratory: + labored breathing; no respiratory distress Auscultation: + crackles Cardiovascular: Rate/Rhythm: regular rate and regular rhythm Heart Sounds: normal S1 and normal S2 Extremities: no edema Gastrointestinal (Abdomen): Inspection/Auscultation: + abdomen abnormal to inspection (PEG tube) and abdomen not distended Percussion/Palpation: abdomen nontender Skin: no rashes, warm and dry Neurologic: awake; + does not move all extremities Psychiatric: Orientation: alert and cooperative; + not oriented to person Genitourinary: + bladder abnormal to inspection (Suprapubic catheter) Results & Data Results & Data ([facility]) Vital Signs (Past 12 Hours) Vital Signs Temp Pulse Resp BP Pulse Ox 10/23/20 08:47 37.3 C 79 18 108/72 91 10/23/20 08:23 80 18 92 PG Care Time/CCT Total # of Minutes Spent Total Time Spent with Patient: Total time spent is greater than 50% in coordination of care (as documented) at patient's floor/unit and/or counseling patient: Coding Level of Care Code 72340 Subseq Hosp Care Lvl 3 Diagnoses Fever R50.9 Generalized epilepsy G40.309 Acute hyponatremia E87.1 COVID-19 U07.1 Pneumonia J18.9 Laterality: unspecified laterality Lung location: unspecified part of lung Pneumonia type: due to unspecified organism Hypothyroid E03.9 Hypothyroidism type: unspecified DVT prophylaxis Z29.9 (1) Pneumonia Laterality: unspecified laterality Lung location: unspecified part of lung Pneumonia type: due to unspecified organism Qualified Code(s): J18.9 - Pneumonia, unspecified organism (2) Hypothyroid Hypothyroidism type: unspecified Qualified Code(s): E03.9 - Hypothyroidism, unspecified
--- NOTE | 2020-10-23 12:13 | Communication Note ---
Date of Service: October 23, 2020 Nikia was seen today by televideo. Most of the visit was spent conversing with her mother. She is apparently doing very well she been awake most of the morning she is interactive and I think her mother thinks she is getting close to her old baseline. On video of her she smiles she nods her head she raises her hands she follows a few simple commands and this to me is pretty much her baseline. No further seizure activity has been reported. She continues to have a low-grade fever had a positive blood culture which may or may not have been a contaminant and is now on some vancomycin At this point my recommendations are pretty much what they were yesterday i.e. obtain drug levels of Depakote Lamictal and Tegretol tomorrow, continue to monit or sodium levels which are now up although they could fall easily once the Tegretol effect is back on board and we will continue the low-dose Keppra and observe her clinically. I might get another EEG next week just to establish a baseline if she remains in an improved state I will check back with her again by video visit tomorrow and hopefully at some point the quarantine will be lifted as she is I believe 2 weeks after positive test and probably nearly 3 weeks after the onset of symptoms Jt Liu MD
[2020-10-23 12:24] LABS: Hematocrit (blood only) 33.5 % (37-47); Mean Corpuscular Hemoglobin 31.7 pg (25-34); Mean Corpuscular Hgb Conc 32.8 g/dL (32-36); Mean Corpuscular Volume 96.5 fL (80-100); RDW Standard Deviation 53.1 fL (36.4-46.3); Red Blood Count 3.47 M/uL (4.2-5.4); White Blood Count 12.43 K/uL (4.8-10.8)
[2020-10-23 12:45] LABS: BUN Creatinine Ratio 66.7 (10-20); Calcium 9.4 mg/dl (8.5-10.1); Creatinine Clr Calc Pharmacy 173.7 ml/min; Est GFR (African American) 142.8; Est GFR (Non-African American) 123.2; Potassium 4.9 mmol/L (3.5-5.1)
[2020-10-23 12:50] LABS: Platelet Count 97 K/uL (130-400)
[2020-10-23] MEDS: ACETAMINOPHEN SUSP 325 MG/10.15 ML UDC PEG PRN ×2 (15:50→22:40)
[2020-10-23] MEDS: PEPTAMEN INTENSE VHP 1.0 CAL 1,000 ML BAG PEG SCH (20:07)
[2020-10-23] MEDS: LEVOTHYROXINE SODIUM 200 MCG TABLET PEG SCH (20:07)
[2020-10-24] MEDS ORDERED: VANCOMYCIN HCL 1,250 MG in SODIUM CHLORIDE 0.9% 250 ML IV SCH (02:00)
[2020-10-24] MEDS: guaiFENesin SUGAR FREE 200 MG/10 ML UDC PEG SCH ×4 (06:06→23:27)
[2020-10-24] MEDS: DOCUSATE SODIUM SYRUP 100 MG/10 ML UDC PEG SCH (06:30)
[2020-10-24] MEDS: diazePAM 5 MG TABLET PO SCH ×2 (06:30→17:30)
[2020-10-24] MEDS: lamoTRIgine 100 MG TAB PO SCH ×2 (06:30→17:29)
[2020-10-24] MEDS: VALPROIC ACID SOLN 500 MG/10 ML UDC PO SCH (06:30)
--- NOTE | 2020-10-24 08:05 | XRay Report ---
SINGLE VIEW CHEST CLINICAL HISTORY: Hypoxia. FINDINGS: An AP, portable, upright chest radiograph is compared to study dated 10/22/2020. The examin ation is degraded by portable technique and patient rotation. The patient's head partially obscures t he right apex. A tracheostomy is in place. The cardiomediastinal silhouette is unremarkable. There is elevation of the right hemidiaphragm with associated right basilar atelectasis. Small bilateral pleu ral effusions are suspected. Bilateral interstitial airspace opacities are unchanged from 10/22/2020. No pneumothorax is seen. The skeletal structures are osteopenic. The bony thorax is grossly intact. IMPRESSION: 1. Interstitial airspace opacities are unchanged from previous. 2. Small pleural effusions. ACT 112: Negative or not required by law. Electronically signed by: Britton Lozoya M.D. 10/24/2020 8:04 AM
[2020-10-24] MEDS: LEVALBUTEROL HCL 1.25 MG/3 ML NEB NEB SCH ×2 (08:16→20:17)
[2020-10-24] MEDS: carBAMazepine 200 MG TABLET PO SCH ×2 (08:44→17:35)
[2020-10-24 08:50] LABS: Hemoglobin 10.2 g/dL (12.0-16.0); Mean Corpuscular Hemoglobin 31.6 pg (25-34); Mean Corpuscular Hgb Conc 32.9 g/dL (32-36); Nucleated RBC # (auto) 0.03 K/uL (0-0); Nucleated RBC % (auto) 0.4 %; RDW Coefficient of Variation 14.8 % (11.5-14.5); RDW Standard Deviation 51.8 fL (36.4-46.3); Red Blood Count 3.23 M/uL (4.2-5.4)
[2020-10-24] MEDS: ACETAMINOPHEN SUSP 325 MG/10.15 ML UDC PEG PRN ×2 (09:17→17:39)
[2020-10-24 09:18] LABS: BUN Creatinine Ratio 85.1 (10-20); Calcium 9.5 mg/dl (8.5-10.1); Creatinine Clr Calc Pharmacy 178.2 ml/min; Est GFR (African American) 143.9; Est GFR (Non-African American) 124.2; Magnesium 2.2 mg/dl (1.8-2.4); Potassium 4.7 mmol/L (3.5-5.1)
[2020-10-24 09:19] LABS: Phosphorus 2.8 mg/dl (2.5-4.9)
[2020-10-24] MEDS: dexAMETHasone 6 MG in SYRINGE 0 ML IV SCH (09:19)
[2020-10-24 09:20] LABS: Carbamazepine Tegretol 8.7 mcg/ml (4-12)
[2020-10-24 09:23] LABS: Mean Platelet Volume 9.3 fL (7.4-10.4); Platelet Count 93 K/uL (130-400)
--- NOTE | 2020-10-24 12:06 | Communication Note ---
Date of Service: October 24, 2020 Nikia was seen today by televideo using [employer] and according to her mother is much much better and in fact they were engaged in starting a game of Whiphand today which she apparently is able to play fairly effectively. She looks well she responds to my face on the video she waves her hand to me she blinks her eyes to command but last night she had 6 very brief duration seizures lasted 10 PM and has not had anything since. Levels today are all reasonably good with the exception of valproic acid which is low at 46 and according to the mother she usually runs 80 someone suggest we move this up to 750 twice a day and her Tegretol is 8.7 but it is rising, the erythromycin derivative is now not on board so we will see what happens over the next few days in terms of level which usually runs about 10-12 Lamictal is in the mid range and Keppra is at the low range but I think we can keep the doses stable for now. I hate to add more Keppra for fear of increasing sedation and irritability Sodium is up to 135 it may begin to fall again now that the Tegretol is back on board and recommended it be done again in about 3 days At home when the patient has clusters of seizures (and she does not infrequently) her mother often gives either an extra Valium or half of a Tegretol. Perhaps this could be instituted in the hospital in the event that shahnaz gonzales has 3 or more seizures in a period of 2 hours Currently she is receiving all her medications by tube feeding and after discussing this with her mother this might not be a bad strategy for her at home to be sure that she does get the medications on a regular basis as administration by the tube is easier I will check back tomorrow Jt Liu MD
--- NOTE | 2020-10-24 14:43 | Hospitalist Progress Note ---
Date of Service October 24, 2020 Assessment & Plan (1) Fever: Fevers to 38.0 starting on 10/23 with milder ones the day before. Per mother, she is usually quite low temperature, so even 37.5 is high for her. - Urine, blood, and sputum culture all drawn on 10/22 while on ceftriaxone and azithromycin for presumed CAP. - Procalcitonin negative on 10/22. MRSA swab positive on 10/22. - Blood cultures grew 1/4 coag(-) Staph. Started empiric vancomycin on 10/23 for bacteremia. - Discussed with pulm on 10/24. No convincing evidence of MRSA pneumonia given minimal fevers, minimal leukocytosis, and minimal change on CXR. Plan to defer further abx and monitor cultures. (2) Generalized epilepsy: Mother reports last seizure that she witnessed was on Sunday; however, I have some concern for seizure activity with eye movements. Follows with Dr. Liu. - Adjusting seizure meds: * Lamotrigine 200mg PO BID (730 & 1800) * Divalproex 625mg PO BID (730 & 1800) * Carbamazepine 200 mg BID (730 & 1800) * Added Keppra on evening of 10/18; increased to 750 mg PO BID on 10/24. - Neurology consulted and EEG. - EEG on 10/19 indicated non-convulsive status epilepticus. EEG on 10/22 was improved and probably at the patient's baseline. - Much more alert yesterday & today. Improving. - Re-check levels in 2 days (12/01 AM). Use Valium 5 mg PO or carbamazepine 100 mg PO for 3+ seizures in an hour time span. (3) Acute hyponatremia: Kq=928. Patient has had this worked up in the past - no clear explanation, thought possibly secondary to medication effects. Urine would indicate low solute as her urine osmolality is only 175. - 1L NSS given in the ED. - Nutrition consult to help improve protein intake. - Improved to 131 off her free-water flushes. Discussed with nephrology and likely largely low solute with some mild SIADH as well. - Monitor -> Now up to 135. (4) COVID-19: Diagnosed on 10/08. - Convalescent plasma given on 10/18/2020. - Continue dexamethasone 6 mg IV daily (Finish on 10/26/2020). - Will hold off on remdesevir therapy for now - patient is 10 days out from her positive test. - Continue Lovenox 40mg BID - Continue Levalbuterol nebs - Continue supplemental O2 by trach collar. - Continue Robitussin & vest (5) Pneumonia: Procalcitonin on 10/17 & 10/22 was negative. - Finished ceftriaxone & azithromycin on 11/22/2020 (6) Hypothyroid: Chronic. TSH was 2.9 in 08/2020. - Continue Synthroid 200mcg po daily put in to PEG tube. (7) DVT prophylaxis: Lovenox 40 mg SQ BID per Covid protocol Admission and Anticipated Discharge Date Admission Date: October 17, 2020 Subjective Much more alert today. Reports no fevers/chills, chest pain, shortness of breath, abdominal pain, nausea, or vomiting. Physical Exam Constitutional: + physical limitations and + frail appearing Eyes: EOM intact bilaterally; no conjunctival abnormality ENMT: external ear and nose normal, oropharynx normal Neck: trachea midline, no thyromegaly + tracheostomy present Respiratory: + labored breathing; no respiratory distress Auscultation: + crackles Cardiovascular: Rate/Rhythm: regular rate and regular rhythm Heart Sounds: normal S1 and normal S2 Extremities: no edema Gastrointestinal (Abdomen): Inspection/Auscultation: + abdomen abnormal to inspection (PEG tube) and abdomen not distended Percussion/Palpation: abdomen nontender Musculoskeletal: no cyanosis or clubbing, extremities motor strength 5/5 Skin: no rashes, warm and dry Neurologic: awake; + does not move all extremities Psychiatric: Orientation: alert and cooperative; + not oriented to person Genitourinary: + bladder abnormal to inspection (Suprapubic catheter) Results & Data Results & Data ([facility]) Vital Signs (Past 12 Hours) Vital Signs Temp Pulse Resp BP Pulse Ox 10/24/20 08:46 37.5 C 82 16 123/88 93 10/24/20 08:25 79 16 92 PG Care Time/CCT Total # of Minutes Spent Total Time Spent with Patient: Total time spent is greater than 50% in coordination of care (as documented) at patient's floor/unit and/or counseling patient: Coding Level of Care Code 53042 Subseq Hosp Care Lvl 2 Diagnoses Fever R50.9 Generalized epilepsy G40.309 Acute hyponatremia E87.1 COVID-19 U07.1 Pneumonia J18.9 Laterality: unspecified laterality Lung location: unspecified part of lung Pneumonia type: due to unspecified organism Hypothyroid E03.9 Hypothyroidism type: unspecified DVT prophylaxis Z29.9 (1) Hypothyroid Hypothyroidism type: unspecified Qualified Code(s): E03.9 - Hypothyroidism, unspecified (2) Pneumonia Laterality: unspecified laterality Lung location: unspecified part of lung Pneumonia type: due to unspecified organism Qualified Code(s): J18.9 - Pneumonia, unspecified organism
[2020-10-24] MEDS ORDERED: VANCOMYCIN TROUGH ONE (17:30)
[2020-10-24] MEDS: VALPROIC ACID SOLN 250 MG/5 ML UDC PO SCH (17:46)
[2020-10-24] MEDS: LEVOTHYROXINE SODIUM 200 MCG TABLET PEG SCH (21:42)
[2020-10-25] MEDS: guaiFENesin SUGAR FREE 200 MG/10 ML UDC PEG SCH ×4 (05:55→23:12)
[2020-10-25] MEDS: LEVALBUTEROL HCL 1.25 MG/3 ML NEB NEB SCH ×2 (07:48→19:21)
[2020-10-25 07:53] LABS: Hematocrit (blood only) 29.5 % (37-47); Hemoglobin 9.6 g/dL (12.0-16.0); Mean Corpuscular Hemoglobin 31.3 pg (25-34); Mean Corpuscular Hgb Conc 32.5 g/dL (32-36); Mean Corpuscular Volume 96.1 fL (80-100); Mean Platelet Volume 9.4 fL (7.4-10.4); Nucleated RBC # (auto) 0.02 K/uL (0-0); Nucleated RBC % (auto) 0.2 %; Platelet Count 108 K/uL (130-400); RDW Coefficient of Variation 14.8 % (11.5-14.5); RDW Standard Deviation 51.7 fL (36.4-46.3); Red Blood Count 3.07 M/uL (4.2-5.4); White Blood Count 9.22 K/uL (4.8-10.8)
[2020-10-25 08:24] LABS: BUN Creatinine Ratio 108.4 (10-20); Blood Urea Nitrogen 35 mg/dl (7-18); Calcium 9.5 mg/dl (8.5-10.1); Carbon Dioxide 35 mmol/L (21-32); Chloride 99 mmol/L (98-107); Creatinine Clr Calc Pharmacy 217.2 ml/min; Est GFR (African American) > 150.0; Est GFR (Non-African American) 132.6; Glucose 93 mg/dl (70-99); Magnesium 2.1 mg/dl (1.8-2.4); Phosphorus 2.8 mg/dl (2.5-4.9); Potassium 4.5 mmol/L (3.5-5.1); Sodium 136 mmol/L (136-145)
[2020-10-25] MEDS: VALPROIC ACID SOLN 250 MG/5 ML UDC PO SCH ×2 (08:34→18:50)
[2020-10-25] MEDS: DOCUSATE SODIUM SYRUP 100 MG/10 ML UDC PEG SCH (08:34)
[2020-10-25] MEDS: diazePAM 5 MG TABLET PO SCH ×2 (08:35→18:48)
[2020-10-25] MEDS: lamoTRIgine 100 MG TAB PO SCH ×2 (08:35→18:49)
[2020-10-25] MEDS: carBAMazepine 200 MG TABLET PO SCH ×2 (08:35→18:48)
[2020-10-25] MEDS: dexAMETHasone 6 MG in SYRINGE 0 ML IV SCH (08:35)
[2020-10-25] MEDS: ACETAMINOPHEN SUSP 325 MG/10.15 ML UDC PEG PRN ×2 (11:03→19:03)
--- NOTE | 2020-10-25 13:48 | Hospitalist Progress Note ---
Date of Service October 25, 2020 Assessment & Plan (1) Fever: Fevers to 38.0 starting on 10/23 with milder ones the day before. Per mother, she is usually quite low temperature, so even 37.5 is high for her. With temp of 37.9 on 10/25-slightly improved - Urine, blood, and sputum culture all drawn on 10/22 while on ceftriaxone and azithromycin for presumed CAP. - Procalcitonin negative on 10/22. MRSA swab positive on 10/22. - Blood cultures grew 1/4 coag(-) Staph. Started empiric vancomycin on 10/23 for bacteremia which has since been discontinued - Discussed with pulm on 10/24. No convincing evidence of MRSA pneumonia given minimal fevers, minimal leukocytosis, and minimal change on CXR. Plan to defer further abx and monitor cultures. Encouraged mom to have her do more deep breathing exercises in case this is from atelectasis (2) Generalized epilepsy: Was in status earlier this admission. Now much improved with adjustment of medications as below Follows with neurologist Dr. Liu. - Adjusting seizure meds: * Lamotrigine 200mg PO BID (730 & 1800) * Divalproex 750mg PO BID (730 & 1800) * Carbamazepine 200 mg BID (730 & 1800) * Added Keppra on evening of 10/18 500mg po bid - Neurology consulted and EEG. - EEG on 10/19 indicated non-convulsive status epilepticus. EEG on 10/22 was improved and probably at the patient's baseline. - Much more alert and improving only one seizure in the last 24 hours which was on 10/24. - Re-check valproic acid and Tegretol level tomorrow morning Use Valium 5 mg PO or carbamazepine 100 mg PO for 3+ seizures in an hour time span. Appreciate neurology consultation (3) Acute hyponatremia: Wq=157 upon admission. Patient has had this worked up in the past - no clear explanation, thought possibly secondary to medication effects-most likely Tegretol. Urine would indicate low solute as her urine osmolality is only 175. - 1L NSS given in the ED. - Nutrition consult to help improve protein intake. - Improved to 136 today off her free-water flushes. Discussed with nephrology and likely largely low solute with some mild SIADH as well. Follow BMP Add free water flushes if sodium continues to rise (4) COVID-19: Diagnosed on 10/08. - Convalescent plasma given on 10/18/2020. - Continue dexamethasone 6 mg IV daily (Finish on 10/26/2020). - Will hold off on remdesevir therapy for now - patient is 10 days out from her positive test. - Continue Levalbuterol nebs - Continue supplemental O2 by trach collar. - Continue Robitussin & vest (5) Pneumonia: Procalcitonin on 10/17 & 10/22 was negative. - Finished ceftriaxone & azithromycin on 11/22/2020 Follow chest x-ray until clear over the next several weeks (6) Hypothyroid: Chronic. TSH was 2.9 in 08/2020. - Continue Synthroid 200mcg po daily put in to PEG tube. 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, noted (11) Anemia: Hemoglobin 9.6, normocytic, most likely anemia of chronic disease Baseline hemoglobin typically 11-12 Follow CBC Check iron studies, B12, folate (12) Thrombocytopenia: Platelets were as low as 59 at [facility], now improved up to 108, likely secondary to viral infection Follow CBC in the morning (13) DVT prophylaxis: Lovenox 40 mg SQ BID was being given but was discontinued on 10/22 for unknown reason Restart Lovenox Disposition-continued stay Eventually will go home with 18/06 care with family Admission and Anticipated Discharge Date Admission Date: October 17, 2020 Subjective Mom is at the bedside as patient is nonverbal. She reports that she seems to be doing much better today. She is a little concerned about the low-grade fevers she is having yesterday and today. She is trying to get the patient to practice deep breathing which is difficult given her cognitive status. She reports patient has a little bit of a runny nose today. She did take a few bites by mouth of food and is also receiving tube feeds. She had a soft bowel movement this morning but no diarrhea. She tried to wean her oxygen down to 50% FiO2 earlier and the patient had a pulse ox of 88-89% so she turned it back up Mom reports only one short seizure yesterday afternoon but none so far today. Review of Systems Review of Systems: Unobtainable due to cognitive status Physical Exam Constitutional: WD/WN, vitals as above + obese Eyes: + anicteric sclerae ENMT: Nose: + nasal discharge (Clear rhinorrhea) Neck: trachea midline, no thyromegaly Respiratory: no labored breathing Auscultation: + crackles (At the right lower and middle lung rivas); no rhonchi and no wheezes Cardiovascular: RRR, no murmur, no edema Chest (Breasts): Chest: normal inspection of chest Gastrointestinal (Abdomen): normal bowel sounds, soft, nontender, no hepatosplenomegaly Musculoskeletal: Extremities: extremities normal to inspection; no cyanosis and no clubbing Skin: no rashes, warm and dry Neurologic: + focal motor deficit (Does not move lower extremities, does spontaneously move right upper extrem) and awake Psychiatric: Orientation: alert Lymphatic: no lymphedema Results & Data Results & Data ([facility]) Vital Signs (Past 12 Hours) Vital Signs Temp Pulse Resp BP BP Pulse Ox 10/25/20 11:09 37.6 C H 10/25/20 11:01 76 116/92 90 10/25/20 08:28 37.9 C H 76 20 176/79 H 93 10/25/20 07:51 76 20 92 Laboratory Results 10/25/20 10/25/20 Range/Units 07:40 07:40 WBC 9.22 (4.8-10.8) K/uL RBC 3.07 L (4.2-5.4) M/uL Hgb 9.6 L (12.0-16.0) g/dL Hct 29.5 L (37-47) % MCV 96.1 (80-100) fL MCH 31.3 (25-34) pg MCHC 32.5 (32-36) g/dL RDW Std Deviation 51.7 H (36.4-46.3) fL RDW Coeff of Nazanin 14.8 H (11.5-14.5) % Plt Count 108 L (130-400) K/uL MPV 9.4 (7.4-10.4) fL Absolute Nucleated RBC 0.02 H (0-0) K/uL Nucleated RBC % (auto) 0.2 % Sodium 136 (136-145) mmol/L Potassium 4.5 (3.5-5.1) mmol/L Chloride 99 (98-107) mmol/L Carbon Dioxide 35 H (21-32) mmol/L Anion Gap 3.0 (3-11) BUN 35 H (7-18) mg/dl Creatinine 0.32 L (0.6-1.2) mg/dl Est Cr Clr Drug Dosing 217.2 ml/min Est GFR ( Amer) > 150.0 Est GFR (Non-Af Amer) 132.6 BUN/Creatinine Ratio 108.4 H (10-20) Glucose 93 (70-99) mg/dl Calcium 9.5 (8.5-10.1) mg/dl Phosphorus 2.8 (2.5-4.9) mg/dl Magnesium 2.1 (1.8-2.4) mg/dl PG Care Time/CCT Total # of Minutes Spent Total Time Spent with Patient: Total time spent is greater than 50% in coordination of care (as documented) at patient's floor/unit and/or counseling patient: Coding Level of Care Code 08111 Subseq Hosp Care Lvl 3 Diagnoses Fever R50.9 Generalized epilepsy G40.309 Acute hyponatremia E87.1 COVID-19 U07.1 Pneumonia J18.9 Laterality: unspecified laterality Lung location: unspecified part of lung Pneumonia type: due to unspecified organism Hypothyroid E03.9 Hypothyroidism type: unspecified Hypoxia R09.02 Neurogenic bladder N31.9 Paraplegia G82.20 Tracheostomy dependence Z93.0 Anemia D64.9 Thrombocytopenia D69.6 DVT prophylaxis Z29.9 (1) Hypothyroid Hypothyroidism type: unspecified Qualified Code(s): E03.9 - Hypothyroidism, unspecified (2) Pneumonia Laterality: unspecified laterality Lung location: unspecified part of lung Pneumonia type: due to unspecified organism Qualified Code(s): J18.9 - Pneumonia, unspecified organism
--- NOTE | 2020-10-25 15:58 | Communication Note ---
Date of Service: October 25, 2020 Nikia was seen today by remote televideo using [employer]. Her mother reports that she is doing very well she is interactive she is playing card games but still has oxygen desaturation and during physical therapy today to try to loosen some secretions she had 2 small seizures 1-3 getting 1 at the end but neither of them were prolonged duration and mother would not normally have offered any treatment that he should have occurred at home Tomorrow we are considering going obtain drug levels of Depakote Lamictal and Tegretol in hopes that the Depakote level will have moved up and the Tegretol will not have changed and liver serum sodium should be monitored as well as to be sure is not back on the way down Should these levels be stable observing I recommend she be discharged when to be medically stable on her current doses of Keppra, Depakote, Lamictal and Tegretol and probably some as needed Diastat for breakthrough seizures as I think her mother feels this would be more consistently effective should she need it in the future We will check in tomorrow to evaluate the drug levels and make final recommendations Exam today reveals generally to be awake alert interactive waving and is able to follow few simple commands" her mother she is playing cards and had no significant post ictal confusion Jt Liu MD infarct
[2020-10-25] MEDS: PEPTAMEN INTENSE VHP 1.0 CAL 1,000 ML BAG PEG SCH (16:07)
[2020-10-25] MEDS: LEVOTHYROXINE SODIUM 200 MCG TABLET PEG SCH (22:03)
[2020-10-25] MEDS ORDERED: ACETAMINOPHEN SUSP 325 MG/10.15 ML UDC PO STA (22:55)
[2020-10-26] MEDS: guaiFENesin SUGAR FREE 200 MG/10 ML UDC PEG SCH ×3 (05:03→18:11)
[2020-10-26 06:47] LABS: Basophils # (auto) 0.01 K/uL (0-0.2); Basophils % (auto) 0.2 %; Eosinophils # (auto) 0.03 K/uL (0-0.5); Eosinophils % (auto) 0.5 %; Immature Granulocytes # (auto) 0.19 K/uL (0.00-0.02); Immature Granulocytes % (auto) 3.5 %; Lymphocytes # (auto) 1.52 K/uL (1.2-3.4); Lymphocytes % (auto) 27.8 %; Mean Corpuscular Hemoglobin 31.3 pg (25-34); Mean Corpuscular Hgb Conc 32.3 g/dL (32-36); Mean Corpuscular Volume 97.2 fL (80-100); Mean Platelet Volume 9.7 fL (7.4-10.4); Monocytes # (auto) 0.91 K/uL (0.11-0.59); Monocytes % (auto) 16.7 %; Neutrophils % (auto) 51.3 %; Platelet Count 158 K/uL (130-400); RDW Coefficient of Variation 14.8 % (11.5-14.5); RDW Standard Deviation 52.6 fL (36.4-46.3); Red Blood Count 3.19 M/uL (4.2-5.4); White Blood Count 5.46 K/uL (4.8-10.8)
[2020-10-26] MEDS: LEVALBUTEROL HCL 1.25 MG/3 ML NEB NEB SCH ×2 (07:16→20:49)
[2020-10-26 07:18] LABS: BUN Creatinine Ratio 97.8 (10-20); Calcium 9.5 mg/dl (8.5-10.1); Creatinine Clr Calc Pharmacy 187.8 ml/min; Est GFR (African American) 146.5; Est GFR (Non-African American) 126.4; Potassium 4.7 mmol/L (3.5-5.1)
[2020-10-26 07:23] LABS: C Reactive Protein 4.55 mg/dl (0-0.29); Carbamazepine Tegretol 6.3 mcg/ml (4-12); Ferritin 525.3 ng/ml (8-388)
[2020-10-26 07:31] LABS: Folate (Folic Acid) > 20.00 ng/ml (>5.38); Vitamin B12 1333 pg/ml (193-986)
[2020-10-26] MEDS: lamoTRIgine 100 MG TAB PO SCH ×2 (08:12→18:09)
[2020-10-26] MEDS: diazePAM 5 MG TABLET PO SCH ×2 (08:12→18:09)
[2020-10-26] MEDS: VALPROIC ACID SOLN 250 MG/5 ML UDC PO SCH ×2 (08:13→18:11)
[2020-10-26] MEDS: DOCUSATE SODIUM SYRUP 100 MG/10 ML UDC PEG SCH (08:13)
[2020-10-26] MEDS: carBAMazepine 200 MG TABLET PO SCH ×2 (08:14→21:08)
[2020-10-26] MEDS ORDERED: VALPROIC ACID SOLN 250 MG/5 ML UDC PO ONE (10:47)
[2020-10-26] MEDS: PEPTAMEN INTENSE VHP 1.0 CAL 1,000 ML BAG PEG SCH (13:52)
--- NOTE | 2020-10-26 15:33 | Hospitalist Progress Note ---
Date of Service October 26, 2020 Assessment & Plan (1) Fever: Fevers to 38.0 starting on 10/23 with milder ones the day before. Per mother, she is usually quite low temperature, so even 37.5 is high for her. With temp of 37.9 on 10/25-but no fevers so far today and no antipyretics given Improving, likely secondary to atelectasis - Urine, blood, and sputum culture all drawn on 10/22 while on ceftriaxone and azithromycin for presumed CAP. - Procalcitonin negative on 10/22 and again on 10/26. -MRSA swab positive on 10/22. - Blood cultures grew 11/29 coag(-) Staph. Started empiric vancomycin on 10/23 for bacteremia which has since been discontinued - Discussed with pulm on 10/24. No convincing evidence of MRSA pneumonia given minimal fevers, minimal leukocytosis, and minimal change on CXR. Plan to defer further abx and monitor cultures. Encouraged mom to have her do more deep breathing exercises in case this is from atelectasis (2) Generalized epilepsy: Was in status earlier this admission. Now much improved with adjustment of medications as below. Having one seizure per day the last few days Follows with neurologist Dr. Liu. Valproic acid level still low on 10/26--> increase Depakote to 1000mg po bid as per Neuro and recheck levels in 2 days on 10/28 Continue: * Lamotrigine 200mg PO BID (730 & 1800) * Divalproex 1000mg PO BID (730 & 1800) * Carbamazepine 200 mg BID (730 & 1800) * Added Keppra on evening of 10/18 500mg po bid - Neurology consulted and EEG. - EEG on 10/19 indicated non-convulsive status epilepticus. EEG on 10/22 was improved and probably at the patient's baseline. Use Valium 5 mg PO or carbamazepine 100 mg PO for 3+ seizures in an hour time span. Appreciate neurology consultation (3) Acute hyponatremia: Pa=013 upon admission. Patient has had this worked up in the past - no clear explanation, thought possibly secondary to medication effects-most likely Tegretol. Urine would indicate low solute as her urine osmolality is only 175. - 1L NSS given in the ED. - Nutrition consult to help improve protein intake. - Improved to 136 and stable off her free-water flushes. Discussed with nephrology and likely largely low solute with some mild SIADH as well. Follow BMP Add free water flushes if sodium continues to rise (4) COVID-19: Diagnosed on 10/08. - Convalescent plasma given on 10/18/2020. - Completed 10 days of dexamethasone 6 mg IV daily - no remdesevir therapy or convalescent plasma was given - patient is 10 days out from her positive test. - Continue Levalbuterol nebs - Continue supplemental O2 by trach collar and wean off - Continue Robitussin & vest (5) Pneumonia: Procalcitonin on 10/17 & 10/22 and 10/26 was negative. - Finished ceftriaxone & azithromycin on 11/22/2020 Follow chest x-ray until clearin 3-4 weeks follows with Pulm Dr. Gtz as outpt (6) Hypothyroid: Chronic. TSH was 2.9 in 08/2020. - Continue Synthroid 200mcg po daily put in to PEG tube. 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 May need home O2 Admission and Anticipated Discharge Date Admission Date: October 17, 2020 Subjective Pt seen with mom at bedside. Mom reports pt is much improved today, is more interactive. Pt waves at me hello when I walked in the room and shakes her head yes to questions. She ate 40% of her lunch tray and is weaned down to 35% FiO2. Had one small seizure yesterday afternoon but none so far today. I discussed her care with Neuro Dr. Liu today Review of Systems Review of Systems: Unobtainable due to cognitive status Physical Exam Constitutional: WD/WN, vitals as above + obese Eyes: + anicteric sclerae Neck: trachea midline, no thyromegaly Respiratory: no labored breathing Auscultation: + crackles (At the right lower and middle lung rivas); no rhonchi and no wheezes Cardiovascular: RRR, no murmur, no edema Chest (Breasts): Chest: normal inspection of chest Gastrointestinal (Abdomen): normal bowel sounds, soft, nontender, no hepatosplenomegaly Musculoskeletal: Extremities: extremities normal to inspection; no cyanosis and no clubbing Skin: no rashes, warm and dry Neurologic: + focal motor deficit (Does not move lower extremities) and awake Psychiatric: Orientation: alert Genitourinary: suprapubic catheter in place draining clear yellow urine Lymphatic: no lymphedema Results & Data Results & Data ([facility]) Vital Signs (Past 12 Hours) Vital Signs Temp Pulse Resp BP Pulse Ox 10/26/20 12:05 37 C 10/26/20 08:09 37.6 C H 74 18 100/65 90 10/26/20 07:16 74 20 94 Laboratory Results 10/26/20 10/26/20 10/26/20 Range/Units 05:45 05:45 05:45 WBC (4.8-10.8) K/uL RBC (4.2-5.4) M/uL Hgb (12.0-16.0) g/dL Hct (37-47) % MCV (80-100) fL MCH (25-34) pg MCHC (32-36) g/dL RDW Std Deviation (36.4-46.3) fL RDW Coeff of Nazanin (11.5-14.5) % Plt Count (130-400) K/uL MPV (7.4-10.4) fL Immature Gran % (Auto) % Neut % (Auto) % Lymph % (Auto) % [place] % (Auto) % Eos % (Auto) % Baso % (Auto) % Neut # (Auto) (1.4-6.5) K/uL Lymph # (Auto) (1.2-3.4) K/uL [place] # (Auto) (0.11-0.59) K/uL Eos # (Auto) (0-0.5) K/uL Baso # (Auto) (0-0.2) K/uL Immature Gran # (Auto) (0.00-0.02) K/uL ESR (0-21) mm/hr Sodium (136-145) mmol/L Potassium (3.5-5.1) mmol/L Chloride (98-107) mmol/L Carbon Dioxide (21-32) mmol/L Anion Gap (3-11) BUN (7-18) mg/dl Creatinine (0.6-1.2) mg/dl Est Cr Clr Drug Dosing ml/min Est GFR ( Amer) Est GFR (Non-Af Amer) BUN/Creatinine Ratio (10-20) Glucose (70-99) mg/dl Calcium (8.5-10.1) mg/dl Iron (35-150) mcg/dl TIBC (250-450) mcg/dl Transferrin (200-360) mg/dl Transferrin % Sat (15-50) % Ferritin (8-388) ng/ml Lactate Dehydrogenase 363 H (84-246) U/L C-Reactive Protein (0-0.29) mg/dl Vitamin B12 1333 H (193-986) pg/ml Folate > 20.00 (>5.38) ng/ml Procalcitonin < 0.05 (0-0.5) ng/ml Valproic Acid (50-100) mcg/ml Carbamazepine (4-12) mcg/ml 10/26/20 10/26/20 10/26/20 Range/Units 05:45 05:45 05:45 WBC 5.46 (4.8-10.8) K/uL RBC 3.19 L (4.2-5.4) M/uL Hgb 10.0 L (12.0-16.0) g/dL Hct 31.0 L (37-47) % MCV 97.2 (80-100) fL MCH 31.3 (25-34) pg MCHC 32.3 (32-36) g/dL RDW Std Deviation 52.6 H (36.4-46.3) fL RDW Coeff of Nazanin 14.8 H (11.5-14.5) % Plt Count 158 (130-400) K/uL MPV 9.7 (7.4-10.4) fL Immature Gran % (Auto) 3.5 % Neut % (Auto) 51.3 % Lymph % (Auto) 27.8 % [place] % (Auto) 16.7 % Eos % (Auto) 0.5 % Baso % (Auto) 0.2 % Neut # (Auto) 2.80 (1.4-6.5) K/uL Lymph # (Auto) 1.52 (1.2-3.4) K/uL [place] # (Auto) 0.91 H (0.11-0.59) K/uL Eos # (Auto) 0.03 (0-0.5) K/uL Baso # (Auto) 0.01 (0-0.2) K/uL Immature Gran # (Auto) 0.19 H (0.00-0.02) K/uL ESR 62 H (0-21) mm/hr Sodium (136-145) mmol/L Potassium (3.5-5.1) mmol/L Chloride (98-107) mmol/L Carbon Dioxide (21-32) mmol/L Anion Gap (3-11) BUN (7-18) mg/dl Creatinine (0.6-1.2) mg/dl Est Cr Clr Drug Dosing ml/min Est GFR ( Amer) Est GFR (Non-Af Amer) BUN/Creatinine Ratio (10-20) Glucose (70-99) mg/dl Calcium (8.5-10.1) mg/dl Iron (35-150) mcg/dl TIBC (250-450) mcg/dl Transferrin (200-360) mg/dl Transferrin % Sat (15-50) % Ferritin (8-388) ng/ml Lactate Dehydrogenase (84-246) U/L C-Reactive Protein (0-0.29) mg/dl Vitamin B12 (193-986) pg/ml Folate (>5.38) ng/ml Procalcitonin (0-0.5) ng/ml Valproic Acid 46 L (50-100) mcg/ml Carbamazepine 6.3 (4-12) mcg/ml 10/26/20 Range/Units 05:45 WBC (4.8-10.8) K/uL RBC (4.2-5.4) M/uL Hgb (12.0-16.0) g/dL Hct (37-47) % MCV (80-100) fL MCH (25-34) pg MCHC (32-36) g/dL RDW Std Deviation (36.4-46.3) fL RDW Coeff of Nazanin (11.5-14.5) % Plt Count (130-400) K/uL MPV (7.4-10.4) fL Immature Gran % (Auto) % Neut % (Auto) % Lymph % (Auto) % [place] % (Auto) % Eos % (Auto) % Baso % (Auto) % Neut # (Auto) (1.4-6.5) K/uL Lymph # (Auto) (1.2-3.4) K/uL [place] # (Auto) (0.11-0.59) K/uL Eos # (Auto) (0-0.5) K/uL Baso # (Auto) (0-0.2) K/uL Immature Gran # (Auto) (0.00-0.02) K/uL ESR (0-21) mm/hr Sodium 136 (136-145) mmol/L Potassium 4.7 (3.5-5.1) mmol/L Chloride 100 (98-107) mmol/L Carbon Dioxide 32 (21-32) mmol/L Anion Gap 4.0 (3-11) BUN 36 H (7-18) mg/dl Creatinine 0.37 L (0.6-1.2) mg/dl Est Cr Clr Drug Dosing 187.8 ml/min Est GFR ( Amer) 146.5 Est GFR (Non-Af Amer) 126.4 BUN/Creatinine Ratio 97.8 H (10-20) Glucose 92 (70-99) mg/dl Calcium 9.5 (8.5-10.1) mg/dl Iron 92 (35-150) mcg/dl TIBC 317 (250-450) mcg/dl Transferrin 244 (200-360) mg/dl Transferrin % Sat 27 (15-50) % Ferritin 525.3 H (8-388) ng/ml Lactate Dehydrogenase (84-246) U/L C-Reactive Protein 4.55 H (0-0.29) mg/dl Vitamin B12 (193-986) pg/ml Folate (>5.38) ng/ml Procalcitonin (0-0.5) ng/ml Valproic Acid (50-100) mcg/ml Carbamazepine (4-12) mcg/ml PG Care Time/CCT Total # of Minutes Spent Total Time Spent with Patient: Total time spent is greater than 50% in coordination of care (as documented) at patient's floor/unit and/or counseling patient: Coding Level of Care Code 26817 Subseq Hosp Care Lvl 3 Diagnoses Fever R50.9 Generalized epilepsy G40.309 Acute hyponatremia E87.1 COVID-19 U07.1 Pneumonia J18.9 Laterality: unspecified laterality Lung location: unspecified part of lung Pneumonia type: due to unspecified organism Hypothyroid E03.9 Hypothyroidism type: unspecified Hypoxia R09.02 Neurogenic bladder N31.9 Paraplegia G82.20 Tracheostomy dependence Z93.0 Anemia D64.9 Thrombocytopenia D69.6 DVT prophylaxis Z29.9 (1) Pneumonia Laterality: unspecified laterality Lung location: unspecified part of lung Pneumonia type: due to unspecified organism Qualified Code(s): J18.9 - Pneumonia, unspecified organism (2) Hypothyroid Hypothyroidism type: unspecified Qualified Code(s): E03.9 - Hypothyroidism, unspecified
--- NOTE | 2020-10-26 15:58 | Communication Note ---
Date of Service: October 26, 2020 Nikia was assessed today by televideo using [employer]. She looks even better than she did yesterday is much more interactive apparently was playing Butch with her mother and winning the game shuffling the cards and today made good eye contact wave generalized gave excellent modified thumbs up and apparently only had 1 brief seizure yesterday at about 230 Labs have shown a persistently low Depakote level despite raising the dose to 750 mg twice a day. I discussed this with Dr. Fuchs and we are going to increase the medication to 1000 mg twice a day and obtain a level in 2 days time which hopefully will be done just prior to her anticipated discharge She has had a persistent low-grade fever so is being held an additional day or 2 and I anticipate she will be discharged on 5 anticonvulsants i.e. Keppra 500 mg twice a day, Depakote 1000 mg twice a day, Tegretol 200 mg twice a day, Lamictal 200 mg twice a day and Valium 5 mg twice a day As discussed yesterday I would suggest the Diastat be given to be used as needed but we may be able to arrange this on an outpatient basis and we certainly will need to see her back in our office at some point in the future once the COVID-19 issue has settled. I think we may actually be able to substitute video visits using the [employer] system as it worked very well during the hospital stay and will keep the need for her to be transported to [facility] from her home in the [facility] to a minimum Jt Liu MD
[2020-10-26] MEDS: ENOXAPARIN INJ 40 MG/0.4 ML SYR SQ SCH (18:11)
[2020-10-26] MEDS: LEVOTHYROXINE SODIUM 200 MCG TABLET PEG SCH (21:08)
[2020-10-27] MEDS: guaiFENesin SUGAR FREE 200 MG/10 ML UDC PEG SCH ×5 (00:13→23:58)
[2020-10-27] MEDS: ENOXAPARIN INJ 40 MG/0.4 ML SYR SQ SCH ×2 (05:09→17:48)
[2020-10-27] MEDS: ACETAMINOPHEN SUSP 325 MG/10.15 ML UDC PEG PRN ×2 (05:26→14:33)
[2020-10-27] MEDS: LEVALBUTEROL HCL 1.25 MG/3 ML NEB NEB SCH ×2 (07:39→19:59)
[2020-10-27] MEDS: DOCUSATE SODIUM SYRUP 100 MG/10 ML UDC PEG SCH (08:18)
[2020-10-27] MEDS: VALPROIC ACID SOLN 250 MG/5 ML UDC PO SCH ×2 (08:19→17:51)
[2020-10-27] MEDS: MULTI VIT W/MINERALS LIQUID 15 ML UDP GT SCH (08:20)
[2020-10-27] MEDS: lamoTRIgine 100 MG TAB PO SCH ×2 (08:20→17:50)
[2020-10-27] MEDS: diazePAM 5 MG TABLET PO SCH ×2 (08:20→17:50)
[2020-10-27] MEDS: carBAMazepine 200 MG TABLET PO SCH ×2 (08:21→17:50)
[2020-10-27] MEDS: PEPTAMEN INTENSE VHP 1.0 CAL 1,000 ML BAG PEG SCH (11:14)
--- NOTE | 2020-10-27 15:19 | Communication Note ---
Date of Service: October 27, 2020 Nikia was seen today again by video using the [employer] system. She remains afebrile. She had very brief duration seizure last evening but her evening medications for seizure control has been delayed. I doubt this was the case but her mother feels this might have been one of the issues. Clinically she is doing very well she is much more interactive and today she even try to work the cell phone herself but was unable to do so. She smiled at examiner she waved her hand she follows [place] and she continues to be playing cards with her mother and wanting games There is a tentative plan to discharge her tomorrow assuming remains afebrile and her oxygen needs can be maintained and of course if her seizures remain well controlled as a single now. This is a woman who has an average at least 1 seizure per day and she is back to that. We will check the Depakote level which remains low and the dose has been increased a bit and hopefully this will be more in the therapeutic range at this as milligrams twice a day we will did up to The other anticonvulsant doses are stable, I am not going to recommend any changes and we will manage these on an outpatient basis when she becomes discharged in stable and home environment We will check back on her tomorrow Jt Liu MD
[2020-10-27] MEDS: LEVOTHYROXINE SODIUM 200 MCG TABLET PEG SCH (20:40)
--- NOTE | 2020-10-27 21:44 | Hospitalist Progress Note ---
Date of Service October 27, 2020 Assessment & Plan (1) Fever: Fevers to 38.0 starting on 10/23 with milder ones the day before. Per mother, she is usually quite low temperature, so even 37.5 is high for her. With temp of 37.9 on 10/25-but no fevers since then Improving, was likely secondary to atelectasis - Urine, blood, and sputum culture all drawn on 10/22 while on ceftriaxone and azithromycin for presumed CAP. - Procalcitonin negative on 10/22 and again on 10/26. -MRSA swab positive on 10/22. - Blood cultures grew 11/29 coag(-) Staph. Started empiric vancomycin on 10/23 for bacteremia which has since been discontinued - Discussed with pulm on 10/24. No convincing evidence of MRSA pneumonia given minimal fevers, minimal leukocytosis, and minimal change on CXR. Plan to defer further abx and monitor cultures. Encouraged mom to have her do more deep breathing exercises in case this is from atelectasis (2) Generalized epilepsy: Was in status earlier this admission. Now much improved with adjustment of medications as below. Having one seizure per day the last few days Follows with neurologist Dr. Liu. Valproic acid level still low on 10/26--> increase Depakote to 1000mg po bid as per Neuro and recheck levels in 2 days on 10/28 Continue: * Lamotrigine 200mg PO BID (730 & 1800) * Divalproex 1000mg PO BID (730 & 1800) * Carbamazepine 200 mg BID (730 & 1800) * Added Keppra on evening of 10/18 500mg po bid - Neurology consulted and EEG. - EEG on 10/19 indicated non-convulsive status epilepticus. EEG on 10/22 was improved and probably at the patient's baseline. Use Valium 5 mg PO or carbamazepine 100 mg PO for 3+ seizures in an hour time span. Appreciate neurology consultation-plan for outpatient follow-up -Of note, mom would like Keppra and Depakote in liquid forms upon discharge (3) Acute hyponatremia: Xj=[id number] upon admission. Patient has had this worked up in the past - no clear explanation, thought possibly secondary to medication effects-most likely Tegretol. Urine would indicate low solute as her urine osmolality is only 175. - 1L NSS given in the ED. - Nutrition consult to help improve protein intake. - Improved to 136 and stable off her free-water flushes. Discussed with nephrology and likely largely low solute with some mild SIADH as well. Follow BMP (4) COVID-19: Diagnosed on 10/08. - Convalescent plasma given on 10/18/2020. - Completed 10 days of dexamethasone 6 mg IV daily - no remdesevir therapy or convalescent plasma was given - patient was 10 days out from her positive test. - Continue Levalbuterol nebs - Continue supplemental O2 by trach collar and wean off - Continue Robitussin & vest (5) Pneumonia: Procalcitonin on 10/17 & 10/22 and 10/26 was negative. - Finished ceftriaxone & azithromycin on 11/22/2020 Follow chest x-ray until clearin 3-4 weeks follows with Pulm Dr. Gtz as outpt Clinically much improved and weaning off oxygen (6) Hypothyroid: Chronic. TSH was 2.9 in 08/2020. - Continue Synthroid 200mcg po daily put in to PEG tube. 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 Will need home O2 and tube feeds 250 mL per PEG tube 3 times daily of Peptamen intense P Admission and Anticipated Discharge Date Admission Date: October 17, 2020 Subjective Patient doing very well today as per mother. She is interactive and smiling and nods her head at me and waves hello. She is eating more and remains afebrile. Had one very brief seizure yesterday evening. Is moving her bowels. Oxygen requirements are lower. Mom feels comfortable with discharged home tomorrow Review of Systems Review of Systems: Unobtainable due to cognitive status Physical Exam Constitutional: WD/WN, vitals as above + obese Eyes: + anicteric sclerae Neck: trachea midline, no thyromegaly Respiratory: normal respiratory effort, lungs clear to auscultation Cardiovascular: RRR, no murmur, no edema Chest (Breasts): Chest: normal inspection of chest Gastrointestinal (Abdomen): normal bowel sounds, soft, nontender, no hepatosplenomegaly Musculoskeletal: Extremities: extremities normal to inspection; no cyanosis and no clubbing Skin: no rashes, warm and dry Neurologic: + focal motor deficit (Does not move lower extremities) and awake Psychiatric: Orientation: alert Lymphatic: no lymphedema Results & Data Results & Data ([facility]) Vital Signs (Past 12 Hours) Vital Signs Temp Pulse Resp BP Pulse Ox 10/27/20 19:59 84 18 93 10/27/20 16:25 37.2 C 75 16 100/68 92 10/27/20 11:22 36.8 C Laboratory Results 10/24/20 Range/Units 08:34 Levetiracetam 21.1 (12.0-46.0) mcg/mL PG Care Time/CCT Total # of Minutes Spent Total Time Spent with Patient: Total time spent is greater than 50% in coordination of care (as documented) at patient's floor/unit and/or counseling patient: Coding Level of Care Code 45318 Subseq Hosp Care Lvl 2 Diagnoses Fever R50.9 Generalized epilepsy G40.309 Acute hyponatremia E87.1 COVID-19 U07.1 Pneumonia J18.9 Laterality: unspecified laterality Lung location: unspecified part of lung Pneumonia type: due to unspecified organism Hypothyroid E03.9 Hypothyroidism type: unspecified Hypoxia R09.02 Neurogenic bladder N31.9 Paraplegia G82.20 Tracheostomy dependence Z93.0 Anemia D64.9 Thrombocytopenia D69.6 DVT prophylaxis Z29.9 (1) Pneumonia Laterality: unspecified laterality Lung location: unspecified part of lung Pneumonia type: due to unspecified organism Qualified Code(s): J18.9 - Pneumonia, unspecified organism (2) Hypothyroid Hypothyroidism type: unspecified Qualified Code(s): E03.9 - Hypothyroidism, unspecified
[2020-10-28] MEDS: ENOXAPARIN INJ 40 MG/0.4 ML SYR SQ SCH (05:33)
[2020-10-28] MEDS: guaiFENesin SUGAR FREE 200 MG/10 ML UDC PEG SCH ×2 (05:33→11:49)
[2020-10-28 06:52] LABS: Basophils # (auto) 0.01 K/uL (0-0.2); Basophils % (auto) 0.2 %; Eosinophils # (auto) 0.01 K/uL (0-0.5); Eosinophils % (auto) 0.2 %; Hematocrit (blood only) 28.3 % (37-47); Hemoglobin 9.3 g/dL (12.0-16.0); Immature Granulocytes # (auto) 0.05 K/uL (0.00-0.02); Immature Granulocytes % (auto) 1.1 %; Lymphocytes # (auto) 1.15 K/uL (1.2-3.4); Lymphocytes % (auto) 24.6 %; Mean Corpuscular Hemoglobin 32.3 pg (25-34); Mean Corpuscular Hgb Conc 32.9 g/dL (32-36); Mean Corpuscular Volume 98.3 fL (80-100); Mean Platelet Volume 9.2 fL (7.4-10.4); Monocytes # (auto) 0.72 K/uL (0.11-0.59); Monocytes % (auto) 15.4 %; Neutrophils # (auto) 2.73 K/uL (1.4-6.5); Neutrophils % (auto) 58.5 %; Platelet Count 290 K/uL (130-400); RDW Coefficient of Variation 14.9 % (11.5-14.5); RDW Standard Deviation 51.9 fL (36.4-46.3); Red Blood Count 2.88 M/uL (4.2-5.4); White Blood Count 4.67 K/uL (4.8-10.8)
[2020-10-28 06:58] LABS: BUN Creatinine Ratio 106.3 (10-20); Blood Urea Nitrogen 34 mg/dl (7-18); Calcium 8.6 mg/dl (8.5-10.1); Carbon Dioxide 31 mmol/L (21-32); Chloride 102 mmol/L (98-107); Creatinine Clr Calc Pharmacy 217.2 ml/min; Est GFR (African American) > 150.0; Est GFR (Non-African American) 132.6; Glucose 95 mg/dl (70-99); Potassium 4.4 mmol/L (3.5-5.1); Sodium 135 mmol/L (136-145)
[2020-10-28] MEDS: diazePAM 5 MG TABLET PO SCH (08:14)
[2020-10-28] MEDS: VALPROIC ACID SOLN 250 MG/5 ML UDC PO SCH (08:17)
[2020-10-28] MEDS: lamoTRIgine 100 MG TAB PO SCH (08:18)
[2020-10-28] MEDS: carBAMazepine 200 MG TABLET PO SCH (08:19)
[2020-10-28] MEDS: DOCUSATE SODIUM SYRUP 100 MG/10 ML UDC PEG SCH (08:19)
[2020-10-28] MEDS: MULTI VIT W/MINERALS LIQUID 15 ML UDP GT SCH (08:20)
[2020-10-28] MEDS: ACETAMINOPHEN SUSP 325 MG/10.15 ML UDC PEG PRN (09:03)
[2020-10-28] MEDS: PEPTAMEN INTENSE VHP 1.0 CAL 1,000 ML BAG PEG SCH (09:03)
[2020-10-28] MEDS: LEVALBUTEROL HCL 1.25 MG/3 ML NEB NEB SCH (09:12)
--- NOTE | 2020-10-28 11:47 | Discharge Summary ---
Date of Service October 28, 2020 Admission HPI Per Admitting Provider Nikia Pickens is a 50yo C female presenting from home with Covid-19, hypoxemia. Patient with mental retardation, tracheostomy dependent respiratory failure (no use of home O2 at baseline - she has a cuffless Shiley #4), PEG tube and suprapubic catheter. She lives at home with her parents who provide majority of her care. She also has a caregiver that comes into the home. Patient's parents developed mild fatigue/body aches/stuffy nose - they were subsequently tested for Covid-19 and found to be positive - appx 2 weeks ago. Patient had a positive Covid-19 test 10 days ago. She has been doing fairly well at home, however, over the last 4 days she has become increasingly fatigued and somnolent, less responsive and interactive. Her mother checks her pulse ox routinely and notes that it has been steadily declining over the last 4 days - 85 - 91%. They suction her as needed and do not not any increased or change in secretions. Mother thinks she may have a UTI as well. No report of fever, nausea, vomiting, diarrhea. Patient has been eating well at home. ER Course: Azithromycin 500mg per PEG, Ceftriaxone 1gm, Xopenex, NSS x 1L Principal Diagnosis Covid-19 pneumonia Status epilepticus Acute respiratory failure with hypoxia Discharge Exam Constitutional WD/WN, vitals as above + obese Eyes + anicteric sclerae Neck trachea midline, no thyromegaly Respiratory normal respiratory effort (With trach collar in place); no labored breathing Auscultation: + rhonchi (In the right lower and middle lung rivas); no wheezes Cardiovascular RRR, no murmur, no edema Chest (Breasts) Chest: normal inspection of chest Gastrointestinal (Abdomen) normal bowel sounds, soft, nontender, no hepatosplenomegaly Musculoskeletal Extremities: extremities normal to inspection; no cyanosis and no clubbing Skin no rashes, warm and dry Neurologic + focal motor deficit (Does not move lower extremities) and awake Psychiatric Orientation: alert Lymphatic no lymphedema Discharge Data Allergies Allergy/AdvReac Type Severity Reaction Status Date / Time phenobarbital AdvReac Intermediate depresssed Verified 10/17/20 21:58 Consultations 10/17/20 21:06 ED Decision to Admit Stat 10/18/20 01:12 Consult Pulmonology Routine 10/18/20 12:54 Consult Neurology Routine 10/27/20 21:32 Consult Case Management - Discharge Planning Routine Ordered Studies Chest x-ray x4 Hospital Course (1) Fever: Fevers to 38.0 starting on 10/23 with milder ones the day before. Per mother, she is usually quite low temperature, so even 37.5 is high for her. With temp of 37.9 on 10/25-but no fevers since then Improving, was likely secondary to atelectasis - Urine, blood, and sputum culture all drawn on 10/22 while on ceftriaxone and azithromycin for presumed CAP. - Procalcitonin negative on 10/22 and again on 10/26. -MRSA swab positive on 10/22. - Blood cultures grew 11/29 coag(-) Staph. Started empiric vancomycin on 10/23 for bacteremia which has since been discontinued - Discussed with pulm on 10/24. No convincing evidence of MRSA pneumonia given minimal fevers, minimal leukocytosis, and minimal change on CXR. Plan to defer further abx and monitor cultures. Encouraged mom to have her do more deep breathing exercises in case this is from atelectasis (2) Generalized epilepsy: Was in status earlier this admission. - Neurology consulted and EEG performed. - EEG on 10/19 indicated non-convulsive status epilepticus. EEG on 10/22 was improved and probably at the patient's baseline. Now much improved with adjustment of medications as below. Having one seizure per day the last few days and then did have 5 on the evening of 10/27 and 3 more on the morning of 10/28 although they were only 20 seconds each Follows with neurologist Dr. Liu. I discussed her care with Dr. Liu again on the day of discharge Valproic acid level now improved up to 52 after the increase in Depakote to 1000mg po bid Given increase in seizures again-we will increase the Tegretol back to home doses Final seizure medications will be: * Lamotrigine 200mg PO BID (730 & 1800) * Divalproex 1000mg PO BID (730 & 1800) * Carbamazepine 200 mg in the morning and 400 mg at night (730 & 1800) * Added Keppra 500 mg p.o. twice daily on evening of 10/18 Use Valium 5 mg PO or carbamazepine 100 mg PO for 3+ seizures in an hour time span. Appreciate neurology consultation-plan for outpatient follow-up (3) Acute hyponatremia: Zj=281 upon admission. Patient has had this worked up in the past - no clear explanation, thought possibly secondary to medication effects-most likely Tegretol. Urine would indicate low solute as her urine osmolality is only 175. - 1L NSS given in the ED. - Nutrition consult to help improve protein intake. - Improved to 135-136 and stable for several days. Discussed with nephrology and likely largely low solute with some mild SIADH as well. Follow BMP periodically as an outpatient (4) COVID-19: Diagnosed on 10/08. - Convalescent plasma given on 10/18/2020. - Completed 10 days of dexamethasone 6 mg IV daily - no remdesevir therapy or convalescent plasma was given - patient was 10 days out from her positive test. - Continue Levalbuterol nebs - Continue supplemental O2 by trach collar upon discharge and wean off as able to at home - Continue Robitussin & vest -She had poor appetite and was started on tube feeds-she will continue Ensure or boost shakes through the PEG tube upon discharge to home until she is able to increase her p.o. intake/appetite at home (5) Pneumonia: Procalcitonin on 10/17 & 10/22 and 10/26 was negative. - Finished ceftriaxone & azithromycin on 11/22/2020 Follow chest x-ray until clear in 3-4 weeks follows with Pulm Dr. Gtz as outpt Clinically much improved but remains on a low-dose of some trach collar oxygen for discharge (6) Hypothyroid: Chronic. TSH was 2.9 in 08/2020. - Continue Synthroid 200mcg po daily put in to PEG tube. 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, noted (11) Anemia: Hemoglobin 9-10, normocytic, most likely anemia of chronic disease Baseline hemoglobin typically 11-12 Follow CBC as an outpatient iron studies with transferrin sat 27%, B12 1333, folate>20 all normal (12) Thrombocytopenia: Platelets were as low as 59 at phong, now improved up to 290, likely secondary to viral infection (13) DVT prophylaxis: Lovenox 40 mg SQ BID Disposition-stable for discharge to home with 24/7 care with family Total Time Total Time Spent Total Time Spent (In Minutes): 45 minutes Total Time Includes: Examination of the Patient, Discharge Planning, Medication Reconciliation and Communication With Other Providers (Neurology) Discharge Plan Discharge Items Patient Disposition: Home - Home Health Services Reason For Visit: COVID-19, HYPOXIA Discharge Diagnosis: COVID-19 Pneumonia, Seizures, Hypoxia Condition on Discharge: Good Activity: Resume your previous activity Non-emergency contact: Primary Care Provider, Neurologist and Industrial Recruiter Call non-emergency contact if: you have any medication questions, your symptoms worsen and you have a fever Follow-up/Referrals: Amber Gtz MD [Physician] - (Follow up within 2-3 weeks) Gómez Murrell DO [Primary Care Provider] - (Follow up in 1-2 weeks) Jt Liu MD [Physician] - (Follow up as already scheduled) Diet: Regular and Other - See Diet Comment Diet Comment: and supplemental tube feeds 250mL three times a day Addtl Attending Provider Instructions: Seizure medications were adjusted-please see medication list. Continue oxygen and follow up with Dr. Gtz in a few weeks. Follow up with Dr. Liu as well. Pending Studies at Discharge: No Stand-Alone Forms: My [facility] Medications and DC Order Prescriptions: New lamotrigine 200 mg tablet 200 mg feeding tube BID Qty: 60 RF: 0 levetiracetam [Keppra] 100 mg/mL Solution 500 mg PEG BID 30 Days Qty: 300 RF: 0 valproic acid (as sodium salt) 250 mg/5 mL (5 mL) Solution 1,000 mg PO DAILY@0730,1800 30 Days Qty: 1200 RF: 0 guaifenesin 100 mg/5 mL Liquid 200 mg PEG Q6H Qty: 120 RF: 0 [id number]-qjh-shknhol gluconate [Centrum] 9 mg iron/15 mL Liquid 15 ml feeding tube QAM Qty: 237 RF: 0 docusate sodium 60 mg/15 mL Syrup 100 mg PEG 0730 Qty: 480 RF: 0 carbamazepine [Tegretol] 200 mg tablet 200 mg feeding tube QAM Qty: 30 RF: 0 carbamazepine [Tegretol] 200 mg tablet 400 mg feeding tube HS Qty: 60 RF: 0 mupirocin 2 % ointment 1 applic topical BID Qty: 15 RF: 0 Continued oxybutynin chloride 10 mg tablet extended release 24hr 10 mg PO DAILY PRN (Reason: over active bladder) RF: 0 diazepam 5 mg tablet 5 mg PO BID RF: 0 magnesium oxide 200 mg magnesium Tablet 200 mg PO Q2D RF: 0 magnesium oxide 200 mg magnesium Tablet 400 mg PO Q2D RF: 0 pseudoephedrine HCl [Sudafed] 30 mg tablet 30 mg PO DAILY PRN (Reason: Congestion) RF: 0 levalbuterol HCl 0.63 mg/3 mL solution for nebulization 0.63 mg INHALATION Q8 PRN (Reason: Wheezing) RF: 0 ibuprofen 200 mg Tablet 400 - 600 mg PO UD PRN (Reason: Fever Or Pain) RF: 0 Changed levothyroxine 200 mcg tablet 200 mcg feeding tube DAILY Qty: 30 RF: 5 Discontinued lamotrigine [Lamictal] 100 mg tablet 100 mg PO BIDM RF: 0 multivitamin Tablet 1 tab PO QAM RF: 0 carbamazepine [Tegretol] 200 mg tablet 200 mg PO QAM RF: 0 guaifenesin 600 mg Tablet Extended Release 12hr 600 mg PO BID RF: 0 carbamazepine [Tegretol] 200 mg Tablet 400 mg PO QPM RF: 0 divalproex 125 mg Capsule, Delayed Rel Sprinkle 625 mg PO BID RF: 0 docusate sodium [Colace] 100 mg Capsule 100 mg PO DAILY RF: 0 Discharge Orders: Discharge Order (Routine); Ordered 10/28/20 Ordered By: Augusta Workman/Other Patient Handouts: COVID-19 Home Care, Disinfecting Your Home of COVID-19 Admission Data Admit Date/Time: 10/17/20 22:27 Attending Provider: Augusta Fuchs Admit Provider: Carrie Kay Primary Care Provider: Gómez Murrell Other Providers: Amber Gtz ; Andre Curiel ; Jana Perez Other Interventions: Discharge Summary Assessment (RN) Last Done: 10/28/20 12:43 Coding Level of Care Code D/C Day Management >30 mins Diagnoses Fever R50.9 Generalized epilepsy G40.309 Acute hyponatremia E87.1 COVID-19 U07.1 Pneumonia J18.9 Laterality: unspecified laterality Lung location: unspecified part of lung Pneumonia type: due to unspecified organism Hypothyroid E03.9 Hypothyroidism type: unspecified Hypoxia R09.02 Neurogenic bladder N31.9 Paraplegia G82.20 Tracheostomy dependence Z93.0 Anemia D64.9 Thrombocytopenia D69.6 DVT prophylaxis Z29.9
--- NOTE | 2020-10-28 16:00 | Communication Note ---
Date of Service: October 28, 2020
--- NOTE | 2020-10-28 16:49 | Communication Note ---
Date of Service: October 28, 2020 Nikia was seen today by video using [employer]. Both Jana Esquivel PA-C and myself participated. According to her mother she is active alert back to her baseline but unfortunately has again had 5 partial seizures which is a frequency that is atypical and her mother is appropriately concerned that her Tegretol level may be inadequate to cover these. Historically she has always run a level around 10 or 11 and now the last level is around 6-8 at home she takes brand-name medication and she is getting generic here so this may be part of the problem and the dose here is lower than at home because she presented with toxicity likely related to erythromycin interaction. On exam she is alert interactive waves of this smiles and looks to be at her baseline We are recommending to the mother that she revert to the prior Tegretol dose i.e. 200 mg in the morning and 400 at night, continue the Depakote dosing of 1000 mg twice a day but this will be in the form of sprinkles rather than the liquid form that she is currently receiving and there may be a significant difference when she gets back on this dose at home and she may develop Depakote toxicity All other medications should remain unchanged i.e. Lamictal 200 mg twice a day, Keppra 500 mg twice a day and Valium 5 mg twice a day We are arranging for repeat drug levels in a week and will give her some Diastat to be used as needed at home (prescription has been called in) and will arrange for a video follow-up in 4 to 6 weeks and will certainly have her mother communicate by email or telephone in the interim She is going to be discharged today The above recommendations were reviewed with Dr. Fuchs her current attending physician Jt Liu MD
--- NOTE | 2020-11-11 07:26 | Coding Query ---
CODING QUERY To promote full compliance with coding requirements relating to patient care, provider participation is requested in all cases of remote inpatient coder uncertainty. Please assist us with the question(s) below: Coding Question(s): Patient admitted with COVID 19 Pneumonia. Progress note 10/18 documents metabolic encephalopathy by Neurology. 10/19 PN mentions encephalopathy. Seeking to clarify the type of encephalopathy present on admission.. Please check the phrase below . Thanks for your help! [facility] Physician's Response(s): Encephalopathy, Not Otherwise Specified x Metabolic Encephalopathy Cannot Clinically Correlate if Encephalopathy, Not Otherwise Specified or Metabolic Encephalopathy was treated Other: Please document: Principal Diagnosis: "that condition established after study, to be chiefly responsible for occasioning the admission of the patient to the hospital for care." Co-Existing Principal Diagnosis: "when two or more diagnoses equally meet the criteria for principal diagnosis as determined by the circumstances of admission, diagnostic work up, and/or therapy provided, and the Alphabetic Index, Tabular List, or another coding guideline does not provide sequencing direction, any one of the diagnoses may be sequenced first." "When the physician has documented what appears to be a current diagnosis in the body of the record, but has not included the diagnosis in the final diagnostic statement, the physician should be asked whether the diagnosis should be added." (Source Coding Clinic 2 QTR90. p3-4) RADHAD
== END 2020-10-28 17:18 | disposition home health service (06) | DRG 177 ==
LOC: ED 18:25 → SUATTDRO 22:27 → 3N 22:27
DX: U07.1 COVID-19; G40.901 Epilepsy, unspecified, not intractable, with status epilepticus; Z93.1 Gastrostomy status; Z68.42 Body mass index [BMI] 45.0-49.9, adult; Z93.0 Tracheostomy status; G95.9 Disease of spinal cord, unspecified; N31.9 Neuromuscular dysfunction of bladder, unspecified; G82.20 Paraplegia, unspecified; J12.89 Other viral pneumonia; D69.6 Thrombocytopenia, unspecified; G93.41 Metabolic encephalopathy; J15.9 Unspecified bacterial pneumonia; E87.1 Hypo-osmolality and hyponatremia; E66.01 Morbid (severe) obesity due to excess calories; F79 Unspecified intellectual disabilities; E03.9 Hypothyroidism, unspecified; J96.01 Acute respiratory failure with hypoxia

== ENCOUNTER 2021-06-05 12:05 | Inpatient (IN) ==
--- NOTE | 2021-06-05 12:57 | Emergency Department Note ---
History of Present Illness General Chief complaint: Referred by Doctor Stated complaint: CALLED BACK FOR IV MEDS Time Seen by Provider: 06/05/21 12:13 History of Present Illness This 50-year-old female presents today with her mother and father, for evaluation of increasing lethargy and decreased appetite. Patient was seen here previously a week ago and was found to have a UTI. She was given Cipro at that time. Her urine culture grew out Enterococcus and Klebsiella. It was found to be resistant to Cipro. She was asked to come back to the ED for IV antibiotics and possible admission if her symptoms were worsening. Her mother states that over the first 3 days of antibiotic use, she actually seem to be getting better. She then plateaued and has now been declining. They deny any fevers. No nausea or vomiting. She has had some coughing and reportedly sounds more wet than she usually does. She has also been having difficulty maintaining her oxygen saturations at home. Patient also has a history of seizures. She is on Tegretol and Lamictal. They have been adjusting her dose based on her previous blood levels. Tegretol has been decreased. Her mother would like the levels checked again to see if it requires further reduction. No other complaints. Home Medications Medication Instructions Recorded Confirmed Type diazepam 5 mg tablet 5 mg PO BID 11/14/18 06/05/21 History magnesium oxide 200 mg PO Q2D 11/14/18 06/05/21 History magnesium oxide 400 mg PO Q2D 11/14/18 06/05/21 History pseudoephedrine HCl 30 mg tablet 30 mg PO DAILY PRN 01/29/20 06/05/21 History (Sudafed) ibuprofen 200 mg tablet 400 - 600 mg PO UD PRN 10/17/20 06/05/21 History levalbuterol HCl 0.63 mg/3 mL 0.63 mg INHALATION Q8 PRN 10/17/20 06/05/21 History solution for nebulization carbamazepine 200 mg tablet 400 mg PO HS 05/24/21 06/05/21 History carbamazepine 200 mg tablet 200 mg PO DAILY 05/24/21 06/05/21 History (Tegretol) carbamazepine 200 mg tablet 400 mg PO Q OTHER DAY 05/24/21 06/05/21 History (Tegretol) docusate sodium 60 mg/15 mL oral 100 mg PO QAM 05/24/21 06/05/21 History syrup guaifenesin 600 mg tablet, 600 mg PO BID 05/24/21 06/05/21 History extended release 12 hr lamotrigine 100 mg tablet 100 mg PO BID 05/24/21 06/05/21 History (Lamictal) levothyroxine 175 mcg tablet 175 mcg FEEDING TUBE DAILY@2100 05/24/21 06/05/21 History multivitamin 1 tab PO QAM 05/24/21 06/05/21 History mupirocin 2 % topical ointment 1 applic TOPICAL DAILY 05/24/21 06/05/21 History oxybutynin chloride 10 mg 10 mg PO DAILY PRN 05/24/21 06/05/21 History tablet,extended release 24 hr valproic acid (as sodium salt) 250 625 mg FEEDING TUBE BID 05/24/21 06/05/21 History mg/5 mL oral solution fluconazole 150 mg tablet 150 mg PO Q3D #2 tab 05/27/21 06/05/21 Rx (Diflucan) Allergies Allergy/AdvReac Type Severity Reaction Status Date / Time phenobarbital AdvReac Intermediate depresssed Verified 05/24/21 21:24 Past Med/Surg History Medical History Chronic constipation Gastrointestinal tube present Generalized epilepsy (09/22/11) Gregory filter in place 2015 -Placed after back surgery prophylactically Mental retardation Surgical History Difficult ventilator weaning 2015 - post op back surgery History of ankle surgery left ankle History of back surgery 2015 History of cardiac cath [place] 2015 Hx of hysterectomy, total 2009 Family History Other No pertinent family history in first degree relatives Social History Smoking Status: Never smoker Second Hand Exposure: No; Hx Alcohol Use: No Hx Substance Use: No Preferred Language: Setswana Communication Ability: Impaired Shell 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 Physical Exam Vital Signs Vital Signs - 24 hr 06/05/21 12:09 Temperature 35.4 C L Temperature Source Temporal Artery Scan Pulse Rate 65 Respiratory Rate 18 Respiratory Effort / Characteristics Non-Labored Respiratory Depth Normal Blood Pressure 125/73 Blood Pressure Mean 90 Pulse Oximetry 93 Oxygen Delivery Method Room Air Sepsis Recent Fever Within 48 Hours No Sepsis New/Unexplained Change in Mental Status No Sepsis Action Taken by Nursing No Action Required General: Well-developed, middle-aged female, in no obvious distress. Sitting in her wheelchair. Lethargic. She currently has her eyes closed. There is mini mal response with verbal stimulation. Oxygen saturations on the monitor are in the mid to high 80s. Skin: Warm and dry with good turgor. No rashes or lesions. No ecchymosis or erythema. The patient is not diaphoretic. No abrasions. There is visible peripheral edema in both legs. Heart: Heart RRR. No MGR. Peripheral pulses are 2+. Lungs: Lungs have significant rhonchi and wheezing in all rivas, worse on the right side. She sounds wet on auscultation. No crackles. Fair air movement. The patient is unable to take a deep breath. Abdomen: Abdomen was inspected, auscultated, and palpated. Obese. Bowel sounds present x 4. Soft, nontender to palpation. No hepato-splenomegaly. No masses noted. No rebound. Musculoskeletal: Limited motor function of the upper and lower extremities Neurologic: Gross sensation is intact across the upper and lower extremities by soft touch. Course Administered Medications Carbamazepine (Carbamazepine 100 Mg Chew Tab) 300 mg PO [facility] Stop: 07/08/21 08:59 Last Admin: 06/08/21 08:23 Dose: 300 mg Documented by: [id number] Diazepam (Diazepam 5 Mg Tablet) 5 mg PO BID@0900,1700 [facility]; Protocol Stop: 07/06/21 16:59 Last Admin: 06/08/21 08:27 Dose: 5 mg Documented by: [id number] Admin: 06/07/21 21:21 Dose: 5 mg Documented by: [id number] Admin: 06/07/21 08:08 Dose: 5 mg Documented by: [id number] Admin: 06/06/21 20:05 Dose: 5 mg Documented by: [id number] Docusate Sodium (Docusate Sodium Syrup 100 Mg/10 Ml Udc) [facility] Stop: 07/06/21 08:59 Last Admin: 06/08/21 08:22 Dose: 100 mg Documented by: [id number] Admin: 06/07/21 08:07 Dose: 100 mg Documented by: [id number] Admin: 06/06/21 08:03 Dose: 100 mg Documented by: [id number] Enoxaparin Sodium (Enoxaparin Inj 40 Mg/0.4 Ml Syr) [facility] Stop: 07/06/21 08:59 Last Admin: 06/06/21 08:03 Dose: 40 mg Documented by: [id number] Guaifenesin (Guaifenesin 600 Mg Tabcr) 600 mg PO BID@0900,1700 [facility]; Protocol Stop: 07/06/21 16:59 Last Admin: 06/08/21 08:22 Dose: 600 mg Documented by: [id number] Admin: 06/07/21 20:07 Dose: 600 mg Documented by: [id number] Admin: 06/07/21 08:05 Dose: 600 mg Documented by: [id number] Admin: 06/06/21 20:02 Dose: 600 mg Documented by: [id number] Ampicillin Sodium 1,000 mg/ (Sodium Chloride) 50 mls @ 100 mls/hr IV Q6H [facility] Stop: 06/15/21 21:59 Last Infusion: 06/08/21 10:56 Dose: 0 mls/hr Documented by: [id number] Admin: 06/08/21 10:05 Dose: 100 mls/hr Documented by: [id number] Infusion: 06/08/21 04:37 Dose: 0 mls/hr Documented by: [id number] Admin: 06/08/21 04:05 Dose: 100 mls/hr Documented by: [id number] Infusion: 06/07/21 22:45 Dose: 0 mls/hr Documented by: [id number] Admin: 06/07/21 22:05 Dose: 100 mls/hr Documented by: [id number] Infusion: 06/07/21 16:47 Dose: 0 mls/hr Documented by: [id number] Admin: 06/07/21 16:04 Dose: 100 mls/hr Documented by: [id number] Infusion: 06/07/21 10:04 Dose: 0 mls/hr Documented by: [id number] Admin: 06/07/21 09:27 Dose: 100 mls/hr Documented by: [id number] Infusion: 06/07/21 04:40 Dose: 0 mls/hr Documented by: [id number] Admin: 06/07/21 04:10 Dose: 100 mls/hr Documented by: [id number] Infusion: 06/06/21 22:08 Dose: 0 mls/hr Documented by: [id number] Admin: 06/06/21 21:38 Dose: 100 mls/hr Documented by: [id number] Infusion: 06/06/21 18:42 Dose: 0 mls/hr Documented by: [id number] Admin: 06/06/21 17:42 Dose: 100 mls/hr Documented by: [id number] Infusion: 06/06/21 11:26 Dose: 0 mls/hr Documented by: [id number] Admin: 06/06/21 10:40 Dose: 100 mls/hr Documented by: [id number] Infusion: 06/06/21 05:27 Dose: 0 mls/hr Documented by: [id number] Admin: 06/06/21 04:17 Dose: 100 mls/hr Documented by: [id number] Infusion: 06/05/21 23:12 Dose: 0 mls/hr Documented by: [id number] Admin: 06/05/21 22:36 Dose: 100 mls/hr Documented by: [id number] Heparin Sodium/Dextrose (Heparin Sodium/Dextrose) 25,000 units in 500 mls @ 18 mls/hr IV .Q24H [facility]; Protocol Stop: 07/07/21 04:10 Last Admin: 06/08/21 08:00 Dose: Not Given Documented by: [id number] Admin: 06/08/21 07:29 Dose: 900 units/hr, 18 mls/hr Documented by: [id number] Cosigned by: [id number] Titration: 06/08/21 06:45 Dose: 900 units/hr, 18 mls/hr Documented by: [id number] Titration: 06/08/21 04:34 Dose: 1,050 units/hr, 21 mls/hr Documented by: [id number] Cosigned by: [id number] Titration: 06/07/21 21:17 Dose: 1,050 units/hr, 21 mls/hr Documented by: [id number] Cosigned by: [id number] Titration: 06/07/21 12:55 Dose: 1,100 units/hr, 22 mls/hr Documented by: [id number] Cosigned by: [id number] Titration: 06/07/21 07:21 Dose: 1,150 units/hr, 23 mls/hr Documented by: [id number] Cosigned by: [id number] Admin: 06/07/21 05:17 Dose: 1,150 units/hr, 23 mls/hr Documented by: [id number] Cosigned by: [id number] Gentamicin Sulfate 312 mg/ (Dextrose) 107.8 mls @ 107.8 mls/hr IV Q24H [facility] Stop: 06/15/21 14:59 Last Infusion: 06/07/21 15:44 Dose: 0 mls/hr Documented by: [id number] Admin: 06/07/21 14:20 Dose: 107.8 mls/hr Documented by: [id number] Lamotrigine (Lamotrigine 100 Mg Tab) 100 mg PO BID@0900,1700 [facility]; Protocol Stop: 07/06/21 16:59 Last Admin: 06/08/21 08:22 Dose: 100 mg Documented by: [id number] Admin: 06/07/21 20:07 Dose: 100 mg Documented by: [id number] Admin: 06/07/21 08:07 Dose: 100 mg Documented by: [id number] Admin: 06/06/21 20:03 Dose: 100 mg Documented by: [id number] Levothyroxine Sodium (Levothyroxine Sodium 175 Mcg Tablet) 175 mcg PEG DAILY@2100 [facility] Stop: 07/05/21 21:20 Last Admin: 06/07/21 20:08 Dose: 175 mcg Documented by: [id number] Admin: 06/06/21 21:28 Dose: 175 mcg Documented by: [id number] Admin: 06/05/21 22:38 Dose: 175 mcg Documented by: [id number] Magnesium Oxide (Magnesium Oxide 400 Mg Tab) 400 mg PO DAILY@0730 [facility] Stop: 07/07/21 07:29 Last Admin: 06/08/21 08:27 Dose: 400 mg Documented by: [id number] Admin: 06/07/21 08:01 Dose: 400 mg Documented by: [id number] Multivitamins (Multivitamin Tab) 1 tab PO QAM [facility] Stop: 07/06/21 08:59 Last Admin: 06/08/21 08:22 Dose: 1 tab Documented by: [id number] Admin: 06/07/21 08:07 Dose: 1 tab Documented by: [id number] Admin: 06/06/21 08:00 Dose: 1 tab Documented by: [id number] Oxybutynin Chloride (Oxybutynin Chloride Xl 5 Mg Tabcr) 10 mg PO DAILY PRN PRN Reason: Catheter change/Bladder Spasm Stop: 07/05/21 21:20 Last Admin: 06/08/21 08:23 Dose: 10 mg Documented by: [id number] Admin: 06/06/21 08:02 Dose: 10 mg Documented by: [id number] Pantoprazole Sodium (Pantoprazole 40 Mg Tab) 40 mg PO DAILY [facility] Stop: 07/06/21 08:59 Last Admin: 06/08/21 08:22 Dose: 40 mg Documented by: [id number] Admin: 06/07/21 08:08 Dose: 40 mg Documented by: [id number] Admin: 06/06/21 08:01 Dose: 40 mg Documented by: [id number] Sodium Chloride (Sodium Chloride 1 Gm Tablet) 1 gm PO BID [facility] Stop: 07/07/21 08:59 Last Admin: 06/08/21 08:22 Dose: 1 gm Documented by: [id number] Admin: 06/07/21 20:09 Dose: 1 gm Documented by: [id number] Admin: 06/07/21 08:04 Dose: 1 gm Documented by: [id number] Valproic Acid (Valproic Acid 50 Mg/Ml Udp) 625 mg PO BID [facility] Stop: 07/05/21 21:20 Last Admin: 06/08/21 08:24 Dose: 625 mg Documented by: [id number] Admin: 06/07/21 23:42 Dose: 625 mg Documented by: [id number] Admin: 06/07/21 09:26 Dose: 625 mg Documented by: [id number] Admin: 06/06/21 22:48 Dose: 625 mg Documented by: [id number] Admin: 06/06/21 08:00 Dose: 625 mg Documented by: [id number] Admin: 06/05/21 22:37 Dose: 625 mg Documented by: [id number] Discontinued Medications Carbamazepine (Carbamazepine 200 Mg Tablet) 200 mg PO DAILY@1700 [facility]; Protocol Stop: 07/06/21 16:59 Last Admin: 06/06/21 20:00 Dose: 200 mg Documented by: [id number] Carbamazepine (Carbamazepine 200 Mg Tablet) 200 mg PO NOW ONE Stop: 06/07/21 13:14 Last Admin: 06/07/21 14:19 Dose: 200 mg Documented by: [id number] Carbamazepine (Carbamazepine 100 Mg Chew Tab) 300 mg PO DAILY@1700 [facility]; Protocol Stop: 06/07/21 17:01 Last Admin: 06/07/21 23:42 Dose: Not Given Documented by: [id number] Carbamazepine (Carbamazepine 200 Mg Tablet) 400 mg PO 2300 ONE Stop: 06/07/21 23:01 Last Admin: 06/07/21 22:06 Dose: 400 mg Documented by: [id number] Diazepam (Diazepam 5 Mg Tablet) 5 mg PO BID [facility] Stop: 07/05/21 21:20 Last Admin: 06/06/21 08:24 Dose: 5 mg Documented by: [id number] Admin: 06/05/21 22:37 Dose: 5 mg Documented by: [id number] Fluconazole (Fluconazole 50 Mg Tab) 150 mg PO Q72H [facility] Stop: 07/06/21 08:59 Last Admin: 06/06/21 08:01 Dose: 150 mg Documented by: [id number] Furosemide (Furosemide 40 Mg/4 Ml Vial) 20 mg IV Q6H [facility] Stop: 06/06/21 04:01 Last Admin: 06/06/21 04:17 Dose: 20 mg Documented by: [id number] Admin: 06/05/21 22:45 Dose: 20 mg Documented by: [id number] Guaifenesin (Guaifenesin 600 Mg Tabcr) 600 mg PO BID [facility] Stop: 07/05/21 21:20 Last Admin: 06/06/21 08:03 Dose: 600 mg Documented by: [id number] Admin: 06/05/21 22:39 Dose: 600 mg Documented by: [id number] Heparin Sodium/Dextrose (Heparin Iv Adult Wt-Based Standard *No* Bolus Protocol) 1 ea IV Q15M [facility]; Protocol Stop: 06/07/21 06:00 Last Admin: 06/07/21 05:01 Dose: 1 ea Documented by: [id number] Sodium Chloride (Nss 1000ml) 1,000 mls @ 125 mls/hr IV .Q8H [facility] Stop: 07/05/21 13:14 Last Infusion: 06/05/21 16:47 Dose: 0 mls/hr Documented by: [id number] Admin: 06/05/21 15:17 Dose: 125 mls/hr Documented by: [id number] Ertapenem 1,000 mg/ Sodium (Chloride) 60 mls @ 100 mls/hr IV Q24H [facility] Stop: 06/15/21 13:14 Last Infusion: 06/05/21 16:01 Dose: 0 mls/hr Documented by: [id number] Admin: 06/05/21 15:18 Dose: 100 mls/hr Documented by: [id number] Ampicillin Sodium/Sulbactam Sodium 3,000 mg/ Sodium Chloride 108 mls @ 200 mls/hr IV NOW STA; Protocol Stop: 06/05/21 16:12 Last Infusion: 06/05/21 17:21 Dose: 0 mls/hr Documented by: [id number] Admin: 06/05/21 16:47 Dose: 200 mls/hr Documented by: [id number] Magnesium Sulfate/Dextrose (Magnesium Sulfate / D5w) 1 gm in 100 mls @ 50 mls/hr IV Q2H [facility] Stop: 06/06/21 17:59 Last Infusion: 06/06/21 21:46 Dose: 0 mls/hr Documented by: [id number] Admin: 06/06/21 19:46 Dose: 50 mls/hr Documented by: [id number] Infusion: 06/06/21 19:43 Dose: 50 mls/hr Documented by: [id number] Admin: 06/06/21 17:43 Dose: 50 mls/hr Documented by: [id number] Gentamicin Sulfate 312 mg/ (Dextrose) 107.8 mls @ 107.8 mls/hr IV NOW STA Stop: 06/06/21 14:45 Last Infusion: 06/06/21 15:27 Dose: 0 mls/hr Documented by: [id number] Admin: 06/06/21 14:22 Dose: 107.8 mls/hr Documented by: [id number] Sodium Chloride (Nss 1000ml) 1,000 mls @ 80 mls/hr IV .[id number] [facility] Stop: 06/07/21 08:14 Last Infusion: 06/07/21 01:31 Dose: 0 mls/hr Documented by: [id number] Admin: 06/06/21 21:24 Dose: 80 mls/hr Documented by: [id number] Ketorolac Tromethamine (Ketorolac Tromethamine 15 Mg/Ml Vial) 15 mg IV 1615 ONE Stop: 06/07/21 16:16 Last Admin: 06/07/21 16:04 Dose: 15 mg Documented by: [id number] Lamotrigine (Lamotrigine 100 Mg Tab) 100 mg PO BID [facility] Stop: 07/05/21 21:20 Last Admin: 06/06/21 08:03 Dose: 100 mg Documented by: [id number] Admin: 06/05/21 22:38 Dose: 100 mg Documented by: [id number] Magnesium Oxide (Magnesium Oxide 400 Mg Tab) 400 mg PO Q48H [facility] Stop: 07/06/21 08:59 Last Admin: 06/06/21 08:01 Dose: 400 mg Documented by: [id number] Metoprolol Tartrate (Metoprolol Tartrate 1 Mg/Ml Vial) 5 mg IV NOW STA Stop: 06/07/21 03:57 Last Admin: 06/07/21 04:13 Dose: 5 mg Documented by: [id number] Metoprolol Tartrate (Metoprolol Tartrate 25 Mg Tab) 12.5 mg PO BID [facility] Stop: 07/07/21 08:59 Last Admin: 06/08/21 08:22 Dose: 12.5 mg Documented by: [id number] Admin: 06/07/21 20:08 Dose: 12.5 mg Documented by: [id number] Admin: 06/07/21 09:32 Dose: 12.5 mg Documented by: [id number] Valproic Acid (Valproic Acid Soln 500 Mg/10 Ml Udc) 500 mg PO NOW STA Stop: 06/06/21 13:38 Last Admin: 06/06/21 14:21 Dose: 500 mg Documented by: [id number] Valproic Acid (Valproic Acid Soln 500 Mg/10 Ml Udc) 500 mg PO NOW ONE Stop: 06/06/21 16:31 Last Admin: 06/06/21 17:43 Dose: 500 mg Documented by: [id number] Valproic Acid (Valproic Acid Soln 500 Mg/10 Ml Udc) 500 mg PO Q6H [facility] Stop: 06/07/21 16:16 Last Admin: 06/07/21 20:06 Dose: 500 mg Documented by: [id number] Admin: 06/07/21 11:40 Dose: 500 mg Documented by: [id number] Medical Decision Making Differential Diagnosis Sepsis, UTI, pneumonia, viral illness, CHF, COPD, dehydration, inadequate medication Medical Records Her EMR was reviewed. Home Medications Additional Comments: Her current medication list was reviewed with her mother. Laboratory Data CBC, chemistry panel, Tegretol level, Lamictal level, lactate, and Covid levels were obtained. Catheter UA was also obtained. CBC shows a normal white count at 4.8. Mildly low H&H at 11.8 and 32.6. Sodium is low at 120. She normally runs in the high 120s. Potassium 5.0. Chloride 86. BUN of 10 with creatinine of 0.2. Glucose 80. AST 43, alk phosphatase 150. Valproic acid level normal at 92. Carbamazepine level elevated at 18.6. This is higher than her last visit. Covid screen is negative. Lactate is normal at 0.7. UA shows clear yellow urine with trace protein, trace ketones, 2+ blood, 1+ leukocytes, and negative for bacteria. Blood cultures x2 were obtained. Result diagrams: 06/08/21 04:10 06/08/21 04:10 Lab Results 06/05/21 06/05/21 06/05/21 Range/Units 13:25 13:25 13:25 WBC 4.81 (4.8-10.8) K/uL RBC 3.62 L (4.2-5.4) M/uL Hgb 11.8 L (12.0-16.0) g/dL Hct 32.6 L (37-47) % MCV 90.1 (80-100) fL MCH 32.6 (25-34) pg MCHC 36.2 H (32-36) g/dL RDW Std Deviation 48.7 H (36.4-46.3) fL RDW Coeff of Nazanin 14.7 H (11.5-14.5) % Plt Count 101 L (130-400) K/uL MPV 10.1 (7.4-10.4) fL Immature Gran % (Auto) 0.2 % Neut % (Auto) 74.1 % Lymph % (Auto) 11.2 % [place] % (Auto) 14.3 % Eos % (Auto) 0.2 % Baso % (Auto) 0.0 % Neut # (Auto) 3.56 (1.4-6.5) K/uL Lymph # (Auto) 0.54 L (1.2-3.4) K/uL [place] # (Auto) 0.69 H (0.11-0.59) K/uL Eos # (Auto) 0.01 (0-0.5) K/uL Baso # (Auto) 0.00 (0-0.2) K/uL Immature Gran # (Auto) 0.01 (0.00-0.02) K/uL Sodium 120 L (136-145) mmol/L Potassium 5.0 (3.5-5.1) mmol/L Chloride 86 L (98-107) mmol/L Carbon Dioxide 28 (21-32) mmol/L Anion Gap 6.0 (3-11) BUN 10 (7-18) mg/dl Creatinine 0.20 L (0.6-1.2) mg/dl Est Cr Clr Drug Dosing Not Reportable Est GFR ( Amer) > 150.0 ml/min Est GFR (Non-Af Amer) > 150.0 ml/min BUN/Creatinine Ratio 52.8 H (10-20) Glucose 80 (70-99) mg/dl Osmolality (280-300) mOsm/kg Lactate (0.4-2.0) mmol/L Calcium 9.6 (8.5-10.1) mg/dl Phosphorus 4.0 (2.5-4.9) mg/dl Total Bilirubin 0.4 (0.2-1) mg/dl AST 43 H (15-37) U/L ALT 28 (12-78) U/L Alkaline Phosphatase 150 H (45-117) U/L Total Protein 7.4 (6.4-8.2) gm/dl Albumin 2.7 L (3.4-5.0) gm/dl Globulin 4.7 H (2.5-4.0) gm/dl Albumin/Globulin Ratio 0.6 L (0.9-2) TSH (0.300-4.500) uIu/ml Urine Color Urine Appearance (Clear) Urine pH (4.5-7.5) Ur Specific [place] (1.000-1.030) Urine Protein (Negative) Urine Glucose (UA) (Negative) Urine Ketones (Negative) Urine Blood (Negative) Urine Nitrite (Negative) Urine Bilirubin (Negative) Urine Urobilinogen (Negative) Ur Leukocyte Esterase (Negative) Urine WBC (Auto) (0-5) /hpf Urine RBC (Auto) (0-4) /hpf U Hyaline Cast (Auto) (0-5) /lpf U Epithel Cells (Auto) (0-5) /lpf Urine Bacteria (Auto) (Negative) Urine Osmolality (500-800) mOsm/kg Ur Random Creatinine mg/dl Urine Sodium mmol/L Urine Potassium mmol/L Urine Chloride mmol/L Valproic Acid 92 (50-100) mcg/ml Carbamazepine 18.6 H* (4-12) mcg/ml COVID-19 Eval Order SARS-CoV-2 (PCR) (Negative) SARS-CoV-2 RNA ([facility]) 06/05/21 06/05/21 06/05/21 Range/Units 13:25 17:16 17:16 WBC (4.8-10.8) K/uL RBC (4.2-5.4) M/uL Hgb (12.0-16.0) g/dL Hct (37-47) % MCV (80-100) fL MCH (25-34) pg MCHC (32-36) g/dL RDW Std Deviation (36.4-46.3) fL RDW Coeff of Nazanin (11.5-14.5) % Plt Count (130-400) K/uL MPV (7.4-10.4) fL Immature Gran % (Auto) % Neut % (Auto) % Lymph % (Auto) % [place] % (Auto) % Eos % (Auto) % Baso % (Auto) % Neut # (Auto) (1.4-6.5) K/uL Lymph # (Auto) (1.2-3.4) K/uL [place] # (Auto) (0.11-0.59) K/uL Eos # (Auto) (0-0.5) K/uL Baso # (Auto) (0-0.2) K/uL Immature Gran # (Auto) (0.00-0.02) K/uL Sodium (136-145) mmol/L Potassium (3.5-5.1) mmol/L Chloride (98-107) mmol/L Carbon Dioxide (21-32) mmol/L Anion Gap (3-11) BUN (7-18) mg/dl Creatinine (0.6-1.2) mg/dl Est Cr Clr Drug Dosing Est GFR ( Amer) ml/min Est GFR (Non-Af Amer) ml/min BUN/Creatinine Ratio (10-20) Glucose (70-99) mg/dl Osmolality 254 L (280-300) mOsm/kg Lactate (0.4-2.0) mmol/L Calcium (8.5-10.1) mg/dl Phosphorus (2.5-4.9) mg/dl Total Bilirubin (0.2-1) mg/dl AST (15-37) U/L ALT (12-78) U/L Alkaline Phosphatase (45-117) U/L Total Protein (6.4-8.2) gm/dl Albumin (3.4-5.0) gm/dl Globulin (2.5-4.0) gm/dl Albumin/Globulin Ratio (0.9-2) TSH (0.300-4.500) uIu/ml Urine Color Urine Appearance (Clear) Urine pH (4.5-7.5) Ur Specific [place] (1.000-1.030) Urine Protein (Negative) Urine Glucose (UA) (Negative) Urine Ketones (Negative) Urine Blood (Negative) Urine Nitrite (Negative) Urine Bilirubin (Negative) Urine Urobilinogen (Negative) Ur Leukocyte Esterase (Negative) Urine WBC (Auto) (0-5) /hpf Urine RBC (Auto) (0-4) /hpf U Hyaline Cast (Auto) (0-5) /lpf U Epithel Cells (Auto) (0-5) /lpf Urine Bacteria (Auto) (Negative) Urine Osmolality (500-800) mOsm/kg Ur Random Creatinine mg/dl Urine Sodium mmol/L Urine Potassium mmol/L Urine Chloride mmol/L Valproic Acid (50-100) mcg/ml Carbamazepine (4-12) mcg/ml COVID-19 Eval Order Covid19 at [facility] SARS-CoV-2 (PCR) (Negative) SARS-CoV-2 RNA ([facility]) Cancelled 06/05/21 06/05/21 06/05/21 Range/Units 17:16 17:20 17:28 WBC (4.8-10.8) K/uL RBC (4.2-5.4) M/uL Hgb (12.0-16.0) g/dL Hct (37-47) % MCV (80-100) fL MCH (25-34) pg MCHC (32-36) g/dL RDW Std Deviation (36.4-46.3) fL RDW Coeff of Naz[place] (11.5-14.5) % Plt Count (130-400) K/uL MPV (7.4-10.4) fL Immature Gran % (Auto) % Neut % (Auto) % Lymph % (Auto) % [place] % (Auto) % Eos % (Auto) % Baso % (Auto) % Neut # (Auto) (1.4-6.5) K/uL Lymph # (Auto) (1.2-3.4) K/uL [place] # (Auto) (0.11-0.59) K/uL Eos # (Auto) (0-0.5) K/uL Baso # (Auto) (0-0.2) K/uL Immature Gran # (Auto) (0.00-0.02) K/uL Sodium (136-145) mmol/L Potassium (3.5-5.1) mmol/L Chloride (98-107) mmol/L Carbon Dioxide (21-32) mmol/L Anion Gap (3-11) BUN (7-18) mg/dl Creatinine (0.6-1.2) mg/dl Est Cr Clr Drug Dosing Est GFR ( Amer) ml/min Est GFR (Non-Af Amer) ml/min BUN/Creatinine Ratio (10-20) Glucose (70-99) mg/dl Osmolality (280-300) mOsm/kg Lactate 0.7 (0.4-2.0) mmol/L Calcium (8.5-10.1) mg/dl Phosphorus (2.5-4.9) mg/dl Total Bilirubin (0.2-1) mg/dl AST (15-37) U/L ALT (12-78) U/L Alkaline Phosphatase (45-117) U/L Total Protein (6.4-8.2) gm/dl Albumin (3.4-5.0) gm/dl Globulin (2.5-4.0) gm/dl Albumin/Globulin Ratio (0.9-2) TSH 1.070 (0.300-4.500) uIu/ml Urine Color Urine Appearance (Clear) Urine pH (4.5-7.5) Ur Specific [place] (1.000-1.030) Urine Protein (Negative) Urine Glucose (UA) (Negative) Urine Ketones (Negative) Urine Blood (Negative) Urine Nitrite (Negative) Urine Bilirubin (Negative) Urine Urobilinogen (Negative) Ur Leukocyte Esterase (Negative) Urine WBC (Auto) (0-5) /hpf Urine RBC (Auto) (0-4) /hpf U Hyaline Cast (Auto) (0-5) /lpf U Epithel Cells (Auto) (0-5) /lpf Urine Bacteria (Auto) (Negative) Urine Osmolality (500-800) mOsm/kg Ur Random Creatinine mg/dl Urine Sodium mmol/L Urine Potassium mmol/L Urine Chloride mmol/L Valproic Acid (50-100) mcg/ml Carbamazepine (4-12) mcg/ml COVID-19 Eval Order SARS-CoV-2 (PCR) NEGATIVE (Negative) SARS-CoV-2 RNA ([facility]) 06/05/21 06/05/21 06/05/21 Range/Units 17:50 17:50 17:50 WBC (4.8-10.8) K/uL RBC (4.2-5.4) M/uL Hgb (12.0-16.0) g/dL Hct (37-47) % MCV (80-100) fL MCH (25-34) pg MCHC (32-36) g/dL RDW Std Deviation (36.4-46.3) fL RDW Coeff of [place] (11.5-14.5) % Plt Count (130-400) K/uL MPV (7.4-10.4) fL Immature Gran % (Auto) % Neut % (Auto) % Lymph % (Auto) % [place] % (Auto) % Eos % (Auto) % Baso % (Auto) % Neut # (Auto) (1.4-6.5) K/uL Lymph # (Auto) (1.2-3.4) K/uL [place] # (Auto) (0.11-0.59) K/uL Eos # (Auto) (0-0.5) K/uL Baso # (Auto) (0-0.2) K/uL Immature Gran # (Auto) (0.00-0.02) K/uL Sodium (136-145) mmol/L Potassium (3.5-5.1) mmol/L Chloride (98-107) mmol/L Carbon Dioxide (21-32) mmol/L Anion Gap (3-11) BUN (7-18) mg/dl Creatinine (0.6-1.2) mg/dl Est Cr Clr Drug Dosing Est GFR ( Amer) ml/min Est GFR (Non-Af Amer) ml/min BUN/Creatinine Ratio (10-20) Glucose (70-99) mg/dl Osmolality (280-300) mOsm/kg Lactate (0.4-2.0) mmol/L Calcium (8.5-10.1) mg/dl Phosphorus (2.5-4.9) mg/dl Total Bilirubin (0.2-1) mg/dl AST (15-37) U/L ALT (12-78) U/L Alkaline Phosphatase (45-117) U/L Total Protein (6.4-8.2) gm/dl Albumin (3.4-5.0) gm/dl Globulin (2.5-4.0) gm/dl Albumin/Globulin Ratio (0.9-2) TSH (0.300-4.500) uIu/ml Urine Color Yellow Urine Appearance Clear (Clear) Urine pH 7.0 (4.5-7.5) Ur Specific [place] 1.014 (1.000-1.030) Urine Protein Trace H (Negative) Urine Glucose (UA) Negative (Negative) Urine Ketones Trace H (Negative) Urine Blood 2+ H (Negative) Urine Nitrite Negative (Negative) Urine Bilirubin Negative (Negative) Urine Urobilinogen Negative (Negative) Ur Leukocyte Esterase 1+ H (Negative) Urine WBC (Auto) >30 H (0-5) /hpf Urine RBC (Auto) 10-30 H (0-4) /hpf U Hyaline Cast (Auto) 1-5 (0-5) /lpf U Epithel Cells (Auto) 5-10 H (0-5) /lpf Urine Bacteria (Auto) Negative (Negative) Urine Osmolality 390 L (500-800) mOsm/kg Ur Random Creatinine 16.3 mg/dl Urine Sodium 24 mmol/L Urine Potassium 59.1 mmol/L Urine Chloride 65 mmol/L Valproic Acid (50-100) mcg/ml Carbamazepine (4-12) mcg/ml COVID-19 Eval Order SARS-CoV-2 (PCR) (Negative) SARS-CoV-2 RNA (GLENNA) Imaging Data My Impression: Chest x-ray obtained today was reviewed by me and read by radiology. There is cardiomegaly with pulmonary vascular congestion and interstitial coarsening suggestive of pulmonary edema. Also small pleural effusions with mild bibasilar opacities suggestive of atelectasis versus pneumonitis. Blood Pressure Blood Pressure Findings: Normal blood pressure MDM Narrative Patient was evaluated in room C9. Her mother and father were present. IV was established. Labs were obtained. Chest x-ray was also obtained given her physical exam. Possibility of worsening pulmonary edema and vascular congestion as well as early pneumonitis was discussed with her mother. She was given normal sterile saline at 125ml per hour. White count is normal. Due to her previous UTI and increasing lethargy, blood cultures x2 were obtained. She was given ertapenem 1gm IV for coverage of the Klebsiella. She was also given Unasyn 3 g IV for coverage of the Enterococcus. Her Tegretol level has been steadily rising, despite reduction in her daily dose. Lamictal level is therapeutic. Recheck of her urine reveals continued abnormalities. Additionally, her sodium is dropping and is significantly low at 120. This may be due to fluid overload, which would be consistent with her pulmonary edema and hypoxia, though her mother states the patient has not been eating or drinking much. Because of her hyponatremia, elevated Tegretol level, worsening pulmonary function, and low oxygen saturation, I did discuss admission with her mother. She is in agreement. Hospitalist service was contacted. Please see that dictation for final management. Covid swab obtained today in the ED was negative. She did remain stable while in the ED. Impression & Plan Hyponatremia, Recurrent UTI, Elevated carbamazepine level, Pulmonary edema, Hypoxia Patient was seen in conjunction with Dr. Arriola, who also evaluated the patient and concurred with today's diagnosis and treatment plan. She did become more alert and awake after receiving some IV fluids. She will be admitted to the [facility] hospitalist service. Discharge Plan Visit Data Chief Complaint: Referred by Doctor Stated Complaint: CALLED BACK FOR IV MEDS ED Midlevel Provider: Peter Ferreira Discharge Problem: Hyponatremia, Recurrent UTI, Elevated carbamazepine level, Pulmonary edema, Hypoxia Patient Disposition: Admitted As Inpatient Discharge Instructions Interventions: ED Discharge Assessment Last Done: 06/05/21 21:07
[2021-06-05] MEDS ORDERED: ERTAPENEM SODIUM 1,000 MG in SODIUM CHLORIDE 0.9% 50 ML IV SCH (13:15)
[2021-06-05] MEDS ORDERED: SODIUM CHLORIDE 0.9% 1000ML 1,000 ML IV SCH (13:15)
[2021-06-05 13:39] LABS: Eosinophils # (auto) 0.01 K/uL (0-0.5); Eosinophils % (auto) 0.2 %; Hematocrit (blood only) 32.6 % (37-47); Hemoglobin 11.8 g/dL (12.0-16.0); Immature Granulocytes # (auto) 0.01 K/uL (0.00-0.02); Immature Granulocytes % (auto) 0.2 %; Lymphocytes # (auto) 0.54 K/uL (1.2-3.4); Lymphocytes % (auto) 11.2 %; Mean Corpuscular Hemoglobin 32.6 pg (25-34); Mean Corpuscular Hgb Conc 36.2 g/dL (32-36); Mean Corpuscular Volume 90.1 fL (80-100); Mean Platelet Volume 10.1 fL (7.4-10.4); Monocytes # (auto) 0.69 K/uL (0.11-0.59); Monocytes % (auto) 14.3 %; Neutrophils # (auto) 3.56 K/uL (1.4-6.5); Neutrophils % (auto) 74.1 %; Platelet Count 101 K/uL (130-400); RDW Coefficient of Variation 14.7 % (11.5-14.5); RDW Standard Deviation 48.7 fL (36.4-46.3); Red Blood Count 3.62 M/uL (4.2-5.4); White Blood Count 4.81 K/uL (4.8-10.8)
[2021-06-05 13:56] LABS: Alanine Aminotransferase 28 U/L (12-78); Albumin Level 2.7 gm/dl (3.4-5.0); Aspartate Aminotransferase 43 U/L (15-37); BUN Creatinine Ratio 52.8 (10-20); Blood Urea Nitrogen 10 mg/dl (7-18); Calcium 9.6 mg/dl (8.5-10.1); Carbon Dioxide 28 mmol/L (21-32); Chloride 86 mmol/L (98-107); Est GFR (African American) > 150.0 ml/min; Est GFR (Non-African American) > 150.0 ml/min; Glucose 80 mg/dl (70-99); Sodium 120 mmol/L (136-145)
[2021-06-05 14:00] LABS: Albumin Globulin Ratio 0.6 (0.9-2); Alkaline Phosphatase 150 U/L (45-117); Bilirubin,Total 0.4 mg/dl (0.2-1); Globulin 4.7 gm/dl (2.5-4.0); Total Protein 7.4 gm/dl (6.4-8.2)
--- NOTE | 2021-06-05 14:06 | XRay Report ---
XR chest 2V PA/lateral HISTORY: 50 years-old Female wheezing, rhonchi acute shortness breath with wheezing COMPARISON: Chest radiograph 05/24/2021 TECHNIQUE: Portable AP view of the chest FINDINGS: Right lung apex is partially obscured from the patient's chin. The patient is rotated. Tracheostomy c annula overlies the midline at the level of the clavicular heads. Cardiomegaly. Hypoinflation. Inters titial coarsening with bibasilar opacities. Blunting of the costophrenic angles. Pulmonary vascular c ongestion. Degenerative changes of the shoulders and spine. IVC filter with gastrostomy tube. IMPRESSION: 1. Cardiomegaly with pulmonary vascular congestion and interstitial coarsening suggestive of pulmonar y edema. 2. Small pleural effusions with mild bibasilar opacities suggestive of atelectasis versus pneumonitis . ACT 112: Negative or not required by law. The above report was generated using voice recognition software. It may contain grammatical, syntax o r spelling errors. Electronically signed by: Yao Corona M.D. 06/05/2021 2:04 PM
[2021-06-05 14:19] LABS: Carbamazepine Tegretol 18.6 mcg/ml (4-12)
--- NOTE | 2021-06-05 15:36 | Emergency Department Note ---
ED Visit Note The [facility] I agree with the history, physical and findings. Please see the note for disposition and details. .
[2021-06-05] MEDS ORDERED: AMPICILLIN/SULBACTAM SOD 3,000 MG in 0.9 % SODIUM CHLORIDE 100 ML IV STA (15:40)
--- NOTE | 2021-06-05 16:44 | History & Physical Report ---
Date of Service June 05, 2021 Assessment & Plan (1) Infectious encephalopathy: * Likely secondary to polymicrobial/multidrug-resistant UTI * Will obtain a CT of the head to rule out acute intracranial process * May be complicated by the hyponatremia on board * We will keep patient n.p.o. for now until mentation improves (to decrease risk of aspiration). Will initiate aspiration precautions (2) UTI (urinary tract infection): * Polymicrobial/multidrug-resistantfailed outpatient treatment * based on prior culture data (done 05/24/2021), continue Invanz + ampicillin * Blood cultures and urine cultures ordered * Consult IV team for PICC line as patient will need 7 to 10 days of IV antibiotic therapy. Once patient medically stable, can proceed with possible administration at home (consult case management for this) (3) Acute hyponatremia: * Patient with chronic hyponatremia (likely from her chronic antiseizure meds) with an acute exacerbation (likely due to volume overload-Patient does have hypoxemia, wheezes/rhonchi, and pulmonary vascular congestion seen on imaging). In addition, Tegretol toxicity likely further driving hyponatremia * Check urine osmolality/serum osmolality, urine electrolytes and urine creatinine to help differentiate * Check TSH * Will give 2 doses of IV Lasix and repeat labs in the a.m. * Will initiate seizure precautions due to hyponatremia and risk for seizure (as needed Ativan ordered) * (4) Tegretol toxicity: * Hold Tegretol for now with repeat level in a.m. (5) Generalized epilepsy: * Continue patient's valproic acid. * Hold Tegretol due to Tegretol toxicity * IV Ativan on board as needed * seizure precautions on board (6) Mental retardation: * Chronic (7) DVT prophylaxis: * Lovenox 40 mg SQ daily (8) Tracheostomy tube present: * Routine nursing care per protocol * If oxygen administered, will need to use trach patient is a full code: D/W mother and father Plan of care has been discussed with Dr. Burgos who agrees History of Present Illness Chief Complaint: Altered mental status X 10 daysknown UTI Primary Care Provider: Gómez Murrell DO Mrs. Pickens is a 50-year-old white female with a past medical history of epilepsy on chronic antiseizure meds, hyponatremia (likely secondary to an tiseizure meds), paraplegia/bedridden, neurogenic bladder with indwelling bella catheter and recurrent UTIs who is mentally handicapped. She is cared for by her parents who are both retired nurses. Mother reports patient typically is able to verbalize simple requests and likes to move her arms to music. Over the past 10 days, patient's mental status has been altered to the point that she has been mostly nonverbal. Her appetite has been decreased thus patient's mother has been trying to supplement Ensure through her feeding tube. Patient does eat but gets extra nutritional support through the feeding tube. She has taken in little oral intake. Patient was seen in the ED on 05/24 and found to have a grossly infected urine. She was started on Cipro and mother reports that patient's mentation seemed to improve but did not return to baseline. She completed a full course of Cipro without improvements. There have been no reports of fevers or chills. Mother reports patient has had audible wheezes and rhonchi at bedside along with increased swelling of her legs. Her mentation has remained altered which prompted her evaluation back into the ED. There she was found to be mildly hypoxic at 89%. Was started on supplemental oxygen and her subsequent pulse ox was 92%. She was afebrile and otherwise hemodynamically stable. Sodium is low at 120 (baseline 128-131). Patient's urine remains grossly infected as it is cloudy, nitrite positive and leukocyte esterase positive. Culture data reviewed from 05/24/2021 showing a polymicrobial/multidrug-resistant UTI (ESBL Klebsiella and Enterococcus) Chest x-ray does show pulmonary vascular congestion Patient will be admitted for hyponatremia in the setting of volume overload along with polymicrobial/multidrug-resistant UTI requiring IV antibiotic therapy with associated altered mental status Allergies Allergy/AdvReac Type Severity Reaction Status Date / Time phenobarbital AdvReac Intermediate depresssed Verified 05/24/21 21:24 Home Medications Medication Instructions Recorded Confirmed Type diazepam 5 mg PO BID 11/14/18 06/05/21 History magnesium oxide 200 mg PO Q2D 11/14/18 06/05/21 History magnesium oxide 400 mg PO Q2D 11/14/18 06/05/21 History pseudoephedrine HCl 30 mg tablet 30 mg PO DAILY PRN 01/29/20 06/05/21 History ibuprofen 400 - 600 mg PO UD PRN 10/17/20 06/05/21 History levalbuterol HCl 0.63 mg INHALATION Q8 PRN 10/17/20 06/05/21 History carbamazepine 400 mg PO HS 05/24/21 06/05/21 History carbamazepine [Tegretol] 200 mg PO DAILY 05/24/21 06/05/21 History carbamazepine [Tegretol] 400 mg PO Q OTHER DAY 05/24/21 06/05/21 History docusate sodium 100 mg PO QAM 05/24/21 06/05/21 History guaifenesin 600 mg PO BID 05/24/21 06/05/21 History lamotrigine [Lamictal] 100 mg PO BID 05/24/21 06/05/21 History levothyroxine 175 mcg FEEDING TUBE DAILY@2100 05/24/21 06/05/21 History multivitamin 1 tab PO QAM 05/24/21 06/05/21 History mupirocin 1 applic TOPICAL DAILY 05/24/21 06/05/21 History oxybutynin chloride 10 mg PO DAILY PRN 05/24/21 06/05/21 History valproic acid (as sodium salt) 625 mg FEEDING TUBE BID 05/24/21 06/05/21 History fluconazole [Diflucan] 150 mg PO Q3D #2 tab 05/27/21 06/05/21 Rx Past Med/Surg History Medical History Chronic constipation Gastrointestinal tube present Generalized epilepsy (09/22/11) [place] filter in place 2015 -Placed after back surgery prophylactically Mental retardation Surgical History Difficult ventilator weaning 2015 - post op back surgery History of ankle surgery left ankle History of back surgery 2015 History of cardiac cath [place] 2015 Hx of hysterectomy, total 2009 Family History Other No pertinent family history in first degree relatives Social History Smoking Status: Never smoker Second Hand Exposure: No; Hx Alcohol Use: No Hx Substance Use: No Preferred Language: Ethiopian Communication Ability: Impaired Boiler Maker Required: No Beliefs That Will Affect Care: None Current Living Situation: Parent Feels Safe at Home: Yes Assistive Devices: Oxygen - Continuous Review of Systems Review of Systems: Unobtainable Physical Exam Physical Exam: Exam limited due to level of cooperation General: Resting comfortably in her hospital bed. She does not appear ill or toxic. She does open her eyes when spoken to but is nonverbal Neck: Tracheostomy present Cardiac: RRR but diminished Lungs: Breathing comfortably on supplemental oxygen. Diminished breath sounds throughout with coarse scattered rhonchi and bibasilar crackles Abdomen: Abdomen nondistended. PUG tube to LUQ Extremities: + Adiposity with trace to +1 pitting edema Neuro: Patient nonverbal. Opens her eyes when spoken to and with any stimuli Skin: No obvious skin lesions or rashes Results & Data Results & Data ([facility]) Vital Signs (Past 12 Hours) Vital Signs Temp Pulse Resp BP Pulse Ox 06/05/21 15:30 63 18 127/83 90 06/05/21 12:09 35.4 C L 65 18 125/73 93 Laboratory Results Abnormal lab results 06/05/21 06/05/21 06/05/21 Range/Units 13:25 13:25 13:25 RBC 3.62 L (4.2-5.4) M/uL Hgb 11.8 L (12.0-16.0) g/dL Hct 32.6 L (37-47) % MCHC 36.2 H (32-36) g/dL RDW Std Deviation 48.7 H (36.4-46.3) fL RDW Coeff of Nazanin 14.7 H (11.5-14.5) % Plt Count 101 L (130-400) K/uL Lymph # (Auto) 0.54 L (1.2-3.4) K/uL [place] # (Auto) 0.69 H (0.11-0.59) K/uL Sodium 120 L (136-145) mmol/L Chloride 86 L (98-107) mmol/L Creatinine 0.20 L (0.6-1.2) mg/dl BUN/Creatinine Ratio 52.8 H (10-20) Osmolality (280-300) mOsm/kg AST 43 H (15-37) U/L Alkaline Phosphatase 150 H (45-117) U/L Albumin 2.7 L (3.4-5.0) gm/dl Globulin 4.7 H (2.5-4.0) gm/dl Albumin/Globulin Ratio 0.6 L (0.9-2) Carbamazepine 18.6 H* (4-12) mcg/ml 06/05/21 Range/Units 13:25 RBC (4.2-5.4) M/uL Hgb (12.0-16.0) g/dL Hct (37-47) % MCHC (32-36) g/dL RDW Std Deviation (36.4-46.3) fL RDW Coeff of Naz[place]in (11.5-14.5) % Plt Count (130-400) K/uL Lymph # (Auto) (1.2-3.4) K/uL [place] # (Auto) (0.11-0.59) K/uL Sodium (136-145) mmol/L Chloride (98-107) mmol/L Creatinine (0.6-1.2) mg/dl BUN/Creatinine Ratio (10-20) Osmolality 254 L (280-300) mOsm/kg AST (15-37) U/L Alkaline Phosphatase (45-117) U/L Albumin (3.4-5.0) gm/dl Globulin (2.5-4.0) gm/dl Albumin/Globulin Ratio (0.9-2) Carbamazepine (4-12) mcg/ml Urine Culture Final 05/27/21-1307 Organism 1 Klebsiella pneumoniae ESBL Deposit Count >100,000 CFU/ml Sens Sensitivities to Follow Organism 2 Enterococcus faecalis Deposit Count >100,000 CFU/ml Sens Sensitivities to Follow ESBL K pne E faecalis RX M.I.C. RX M.I.C. --- --------- --- --------- Amox/Clav I 16/8 Ampicillin S <=2 Amp/Sul R >16/8 Cefazolin R >16 Cefepime R >16 Cefotaxime R >16 Ceftriaxone R >2 Ciprofloxacin R >2 S <=1 Daptomycin S 2 Ertapenem S <=0.5 Gentamicin S <=4 Gent Synergy S <=500 Levofloxacin R >4 S <=1 Meropenem S <=1 Nitrofurantoin I 64 S <=32 Penicillin S 8 Strep Synergy S <=1000 Tetracycline R >8 Tobramycin R >8 Trimeth/Sulfa R >2/38 Pip/Tazo I 64 Vancomycin S 2 Diagnostic Findings CXR: Pulmonary vascular congestion but poor inspiratory film Medications Administered NSScurrently running at 125ml/hr Invanz 1 g Unasyn 3 g PG Care Time/CCT Total # of Minutes Spent Total Time Spent with Patient: Total time spent is greater than 50% in coordination of care (as documented) at patient's floor/unit and/or counseling patient: [place] [address] Initial Inpt Care Lvl 3 Patient Type New History Detailed Exam Detailed Medical Decision Making Moderate Complexity Diagnoses Infectious encephalopathy G93.49; B99.9 UTI (urinary tract infection) N39.0 Acute hyponatremia E87.1 Tegretol toxicity T42.1X1A Generalized epilepsy G40.309 Mental retardation F79 DVT prophylaxis Z29.9 Tracheostomy tube present Z93.0
--- NOTE | 2021-06-05 17:49 | CT Scan Report ---
CT head/brain wo con CLINICAL HISTORY: 50 years-old Female with ams. Acutely altered mental status TECHNIQUE: Multiple axial CT images of the head were obtained without contrast. A dose lowering tech nique was utilized adhering to the principles of ALARA. CT DOSE: 2.78 mGy.cm COMPARISON: Head CT 08/16/2020 FINDINGS: Motion degraded exam. Prominent calcifications of the falx cerebri. No acute intracranial hemorrhage, midline shift, intracranial mass, hydrocephalus, territorial ischemia or abnormal extra-axial collec tion. The calvarium is intact. Moderate right mastoid effusion. Left mastoid air cells are clear. Paranasa l sinuses are also generally clear. Unremarkable soft tissues. IMPRESSION: Motion degraded exam. No acute intracranial abnormality identified. ACT 112: Negative or not required by law. The above report was generated using voice recognition software. It may contain grammatical, syntax o r spelling errors. Electronically signed by: Yao Corona M.D. 06/05/2021 5:48 PM
[2021-06-05 18:22] LABS: Appearance Urine Clear (Clear); Bacteria Urine Automated Negative (Negative); Bilirubin Urine Negative (Negative); Blood Urine 2+ (Negative); Color Urine Yellow; Glucose Urine UA Negative (Negative); Ketones Urine Trace (Negative); Leukocyte Esterase Urine 1+ (Negative); Nitrite Urine Negative (Negative); Protein Urine Trace (Negative); Specific Gravity Urine 1.014 (1.000-1.030); Urobilinogen Urine Negative (Negative); WBC Urine Automated >30 /hpf (0-5)
[2021-06-05] MEDS ORDERED: ONDANSETRON INJ 2 MG/ML 2 ML VIAL IV PRN (21:21)
[2021-06-05] MEDS ORDERED: LORazepam 2 MG/4 ML VIAL IV PRN (21:21)
[2021-06-05] MEDS ORDERED: LEVALBUTEROL HCL 0.63 MG/3 ML NEB INH PRN (21:21)
[2021-06-05] MEDS: AMPICILLIN 1,000 MG in SODIUM CHLOR 0.9% AD-VAN 50 ML IV SCH (22:36)
[2021-06-05] MEDS: diazePAM 5 MG TABLET PO SCH (22:37)
[2021-06-05] MEDS: VALPROIC ACID 50 MG/ML UDP PO SCH (22:37)
[2021-06-05] MEDS: lamoTRIgine 100 MG TAB PO SCH (22:38)
[2021-06-05] MEDS: LEVOTHYROXINE SODIUM 175 MCG TABLET PEG SCH (22:38)
[2021-06-05] MEDS: guaiFENesin 600 MG TABCR PO SCH (22:39)
[2021-06-05] MEDS: FUROSEMIDE 40 MG/4 ML VIAL IV SCH (22:45)
[2021-06-06 00:56] LABS: Creatinine Urine Random 16.3 mg/dl; Urine Potassium 59.1 mmol/L
[2021-06-06] MEDS: FUROSEMIDE 40 MG/4 ML VIAL IV SCH (04:17)
[2021-06-06] MEDS: AMPICILLIN 1,000 MG in SODIUM CHLOR 0.9% AD-VAN 50 ML IV SCH ×4 (04:17→21:38)
[2021-06-06 06:44] LABS: Eosinophils # (auto) 0.02 K/uL (0-0.5); Eosinophils % (auto) 0.6 %; Hematocrit (blood only) 32.9 % (37-47); Hemoglobin 11.9 g/dL (12.0-16.0); Immature Granulocytes # (auto) 0.01 K/uL (0.00-0.02); Immature Granulocytes % (auto) 0.3 %; Lymphocytes # (auto) 0.34 K/uL (1.2-3.4); Lymphocytes % (auto) 9.5 %; Mean Corpuscular Hemoglobin 32.2 pg (25-34); Mean Corpuscular Hgb Conc 36.2 g/dL (32-36); Mean Corpuscular Volume 89.2 fL (80-100); Mean Platelet Volume 9.6 fL (7.4-10.4); Monocytes # (auto) 0.45 K/uL (0.11-0.59); Monocytes % (auto) 12.6 %; Neutrophils # (auto) 2.76 K/uL (1.4-6.5); Platelet Count 105 K/uL (130-400); RDW Coefficient of Variation 14.6 % (11.5-14.5); Red Blood Count 3.69 M/uL (4.2-5.4); White Blood Count 3.58 K/uL (4.8-10.8)
[2021-06-06 07:25] LABS: Alanine Aminotransferase 63 U/L (12-78); Albumin Globulin Ratio 0.6 (0.9-2); Albumin Level 2.7 gm/dl (3.4-5.0); Alkaline Phosphatase 243 U/L (45-117); Aspartate Aminotransferase 106 U/L (15-37); BUN Creatinine Ratio 57.3 (10-20); Bilirubin,Total 0.7 mg/dl (0.2-1); Blood Urea Nitrogen 9 mg/dl (7-18); Calcium 9.2 mg/dl (8.5-10.1); Carbon Dioxide 29 mmol/L (21-32); Chloride 87 mmol/L (98-107); Creatinine Clr Calc Pharmacy 408.2 ml/min; Est GFR (African American) > 150.0 ml/min; Est GFR (Non-African American) > 150.0 ml/min; Globulin 4.5 gm/dl (2.5-4.0); Glucose 84 mg/dl (70-99); Magnesium 1.5 mg/dl (1.8-2.4); Potassium 4.2 mmol/L (3.5-5.1); Sodium 123 mmol/L (136-145); Total Protein 7.2 gm/dl (6.4-8.2)
[2021-06-06 07:27] LABS: Carbamazepine Tegretol 13.3 mcg/ml (4-12)
--- NOTE | 2021-06-06 07:48 | XRay Report ---
XR chest 1V portable CLINICAL HISTORY: post diuresis COMPARISON STUDY: 06/05/2021 FINDINGS: A tracheostomy tube is again visualized. The heart is enlarged. There are bilateral pleural effusions with associated basilar airspace opacities. There is a fracture the right third rib senior product consultant iorly, likely old. There are right upper lung zone airspace opacities, pneumonia versus focal edema.[ There is mild pulmonary vascular congestion. IMPRESSION: 1. Focal right mid to upper lung zone airspace opacities, pneumonia versus asymmetric edema. Clinical and radiographic follow-up recommended 2. Cardiomegaly, bilateral pleural effusions, and bibasilar airspace opacities, atelectasis versus pn eumonia. 3. Mild pulmonary vascular congestion ACT 112: Negative or not required by law. Electronically signed by: Russel Terrazas M.D. 06/06/2021 7:47 AM
[2021-06-06] MEDS: VALPROIC ACID 50 MG/ML UDP PO SCH ×2 (08:00→22:48)
[2021-06-06] MEDS: MULTIVITAMIN TAB PO SCH (08:00)
[2021-06-06] MEDS: PANTOprazole 40 MG TAB PO SCH (08:01)
[2021-06-06] MEDS: OXYBUTYNIN CHLORIDE XL 5 MG TABCR PO PRN (08:02)
[2021-06-06] MEDS: guaiFENesin 600 MG TABCR PO SCH ×2 (08:03→20:02)
[2021-06-06] MEDS: DOCUSATE SODIUM SYRUP 100 MG/10 ML UDC PO SCH (08:03)
[2021-06-06] MEDS: lamoTRIgine 100 MG TAB PO SCH ×2 (08:03→20:03)
[2021-06-06] MEDS: diazePAM 5 MG TABLET PO SCH ×2 (08:24→20:05)
[2021-06-06] MEDS ORDERED: MAGNESIUM OXIDE 400 MG TAB PO SCH (09:00)
[2021-06-06] MEDS ORDERED: ENOXAPARIN INJ 40 MG/0.4 ML SYR SQ SCH (09:00)
[2021-06-06] MEDS ORDERED: FLUCONAZOLE 50 MG TAB PO SCH (09:00)
--- NOTE | 2021-06-06 09:23 | Hospitalist Progress Note ---
Date of Service June 06, 2021 Assessment & Plan (1) Infectious encephalopathy: * Likely secondary to polymicrobial/multidrug-resistant UTI * CT of the head negative for acute process * hyponatremia also influencing * Fluid restriction and aspiration precautions, start isotonic saline as pts po intake has been poor * nutrition consult to augment nutrition via peg, mother typically does sometimes at home (2) UTI (urinary tract infection): * Pt has a history of Polymicrobial/multidrug-resistanturinary infections, was given cipro * based on prior culture data (done 05/24/2021), Invanz + ampicillin were chosen, however the Invanz can lower valproic acid levels, will change to Gentamicin * Blood cultures and urine cultures pending * Consult IV team for PICC line (3) Acute hyponatremia: * Patient with chronic hyponatremia (likely from her chronic antiseizure meds) with an acute exacerbation * In addition, Tegretol toxicity likely further driving hyponatremia * low osmolality, given poor po intake reluctance to use free water via peg, will have one liter of nss at 80 and retest 06/07/21 * nl TSH * Will initiate seizure precautions due to hyponatremia and risk for seizure (as needed Ativan ordered) (4) Tegretol toxicity: * now will restart tegretol at lower dose, elevation most likely spurred on by Cipro Rx (5) Generalized epilepsy: * Continue patient's valproic acid, low level 06/15. I spoke to pharmacy and will augment dosing to catch up to therapuetic levels and change ertapenem * Held Tegretol due to Tegretol toxicity, restart * IV Ativan on board as needed * seizure precautions on board (6) Mental retardation: * Chronic (7) Tracheostomy tube present: * Routine nursing care per protocol * If oxygen administered, will need to use trach patient is a full code: D/W mother and father Plan of care has been discussed with Dr. Looney who agrees (8) Moderate malnutrition: pts albumin is low, not eating due to encephalopathy, will ask for Nutrition consult to help consider augmenting tube feeds until mental status improved (9) DVT prophylaxis: * Lovenox 40 mg SQ daily Admission and Anticipated Discharge Date Admission Date: June 05, 2021 Subjective Patient does open eyes to verbal stimulation. Her mother is at the bedside. The patient reportedly is much more interactive and alert on a typical day. Patient has a couple different issues impacting her metabolic encephalopathy including hyponatremia and also toxic encephalopathy from elevated Tegretol level. Patient also has concurrent urinary tract infection which in the past has been 2 different species of Klebsiella but currently we are awaiting reanalysis of pinpoint growth urine testing. Review of Systems Review of Systems: Unobtainable due to cognitive status Physical Exam Physical Exam: The patient appeared chronically ill she is been developmentally challenged and has a chronic trach and PEG tube Vital signs as documented. Head exam is normocephalic atraumatic Neck is with tracheostomy with humidified oxygen at 5 L via trach collar Lungs are coarse without focal air loss Cardiac exam, Rhythm is regular.. No murmurs, rubs or gallops. Abdominal exam reveals normal bowel sounds, soft non tender PEG tube is in place at the left upper quadrant Extremities are nonedematous and both pedal pulses are present Neurologic exam is does awaken to verbal stimuli attempts to follow commands easily falls back to sleep Mother at the bedside is concern for some swallowing related issues Skin is without bruises or rashes Results & Data Results & Data ([facility]) Vital Signs (Past 12 Hours) Vital Signs Temp Pulse Resp BP BP Pulse Ox Pulse Ox 06/06/21 08:14 91 H 20 118/68 91 06/06/21 04:09 98.1 F 92 H 21 121/79 92 06/06/21 00:00 93 06/05/21 23:16 93.9 F L 77 24 108/81 90 06/05/21 22:48 74 156/97 H 92 06/05/21 22:19 62 16 94 06/05/21 21:45 92.7 F L 06/05/21 21:24 92.7 F L 66 20 177/92 H 93 PG Care Time/CCT Total # of Minutes Spent Total Time Spent with Patient: Total time spent is greater than 50% in coordination of care (as documented) at patient's floor/unit and/or counseling patient: Coding Level of Care Code 42703 Subseq Hosp Care Lvl 3 Diagnoses Infectious encephalopathy G93.49; B99.9 UTI (urinary tract infection) N39.0 Acute hyponatremia E87.1 Tegretol toxicity T42.1X1A Generalized epilepsy G40.309 Mental retardation F79 Tracheostomy tube present Z93.0 Moderate malnutrition E44.0 DVT prophylaxis Z29.9
[2021-06-06] MEDS ORDERED: VALPROIC ACID SOLN 500 MG/10 ML UDC PO STA (13:37)
[2021-06-06] MEDS ORDERED: DEXTROSE 5% IV STA (13:46)
[2021-06-06] MEDS ORDERED: GENTAMICIN SULFATE IV STA (13:46)
[2021-06-06] MEDS ORDERED: GENTAMICIN CONSULT ACTIVE PRN (13:47)
[2021-06-06] MEDS ORDERED: ERTAPENEM SODIUM 1,000 MG in SODIUM CHLORIDE 0.9% 50 ML IV SCH (14:00)
--- NOTE | 2021-06-06 14:06 | Pharmacy Report ---
Pharmacy Abx Dose Short Note - Date of Service June 06, 2021 - Assessment & Plan Assessment * 50 year old F receiving GENTAMICIN and AMPICILLIN IV for treatment of complicated UTI (Pharmacy to dose GENTAMICIN) * Prior urine cx's grew ESBL klebsiella pn as well as enterococcus faecalis * Had been receiving ertapenem therapy for ESBL kleb coverage however due to significant interaction with valproic acid, therapy will be changed to gent IV based upon prior sensitivities * Renal fxn difficult to assess given body habitus and low muscle mass Plan Gentamicin * Patient appears to be a candidate for extended-interval dosing * Will dose patient using the [place] Nomogram, 5mg/kg adjusted body weight (312mg) * Will obtain random level ~10 hrs after dose to assess clearance and confirm pt will require Q 24 hr dosing interval Pharmacy will continue to follow and will adjust dose/frequency as necessary. Thank you.
[2021-06-06] MEDS ORDERED: VALPROIC ACID SOLN 500 MG/10 ML UDC PO ONE (16:30)
[2021-06-06] MEDS ORDERED: carBAMazepine 200 MG TABLET PO SCH ×2 (17:00→21:00)
--- NOTE | 2021-06-06 17:38 | Hospitalist Progress Note ---
Date of Service June 06, 2021 Assessment & Plan (1) Infectious encephalopathy: * Infectious and/or Metabolic encephalopathy, Likely secondary to polymicrobial/multidrug-resistant UTI in setting of chronic bella catheter present on admission * CT of the head negative for acute process * hyponatremia also influencing * Fluid restriction and aspiration precautions, start isotonic saline as pts po intake has been poor * nutrition consult to augment nutrition via peg, mother typically does somet imes at home (2) UTI (urinary tract infection): * Pt has a history of Polymicrobial/multidrug-resistanturinary infections, was given cipro * based on prior culture data (done 05/24/2021), Invanz + ampicillin were chosen, however the Invanz can lower valproic acid levels, will change to Gentamicin * Blood cultures and urine cultures pending * Consult IV team for PICC line (3) Acute hyponatremia: * Patient with chronic hyponatremia (likely from her chronic antiseizure meds) with an acute exacerbation * In addition, Tegretol toxicity likely further driving hyponatremia * low osmolality, given poor po intake reluctance to use free water via peg, will have one liter of nss at 80 and retest 06/07/21 * nl TSH * Will initiate seizure precautions due to hyponatremia and risk for seizure (as needed Ativan ordered) (4) Tegretol toxicity: * now will restart tegretol at lower dose, elevation most likely spurred on by Cipro Rx (5) Generalized epilepsy: * Continue patient's valproic acid, low level 06/15. 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 Looney who agrees (8) Moderate malnutrition: pts albumin is low, not eating due to encephalopathy, will ask for Nutrition consult to help consider augmenting tube feeds until mental status improved (9) Pulmonary edema: initial concerns on imaging for acute pulmonary edema, treated with lasix, may have more been aspiration pneumonitis, we do not have echo on this pt will perform echo (10) DVT prophylaxis: * Lovenox 40 mg SQ daily Admission and Anticipated Discharge Date Admission Date: June 05, 2021 Results & Data Results & Data ([facility]) Vital Signs (Past 12 Hours) Vital Signs Pulse Pulse Resp BP Pulse Ox 06/06/21 08:14 91 H 20 118/68 91 06/06/21 08:00 90 PG Care Time/CCT Total # of Minutes Spent Total Time Spent with Patient: Total time spent is greater than 50% in coordination of care (as documented) at patient's floor/unit and/or counseling patient: Coding Level of Care Code None Diagnoses Infectious encephalopathy G93.49; B99.9 UTI (urinary tract infection) N39.0 Acute hyponatremia E87.1 Tegretol toxicity T42.1X1A Generalized epilepsy G40.309 Mental retardation F79 Tracheostomy tube present Z93.0 Moderate malnutrition E44.0 Pulmonary edema J81.1 DVT prophylaxis Z29.9
[2021-06-06] MEDS: MAGNESIUM SULFATE / D5W 1 GM/100 ML BAG IV SCH ×2 (17:43→19:46)
--- NOTE | 2021-06-06 18:11 | Consultation Report ---
DATE OF CONSULTATION: 06/06/2021. REASON FOR CONSULTATION: History of seizure, Tegretol toxicity, hyponatremia. HISTORY OF PRESENT ILLNESS: This patient is a 50-year-old with a history of chronic epilepsy and baseline hyponatremia of 128-129, paraplegia secondary to a spinal cord injury from a seizure, neurogenic bladder and tracheostomy. The patient is cared for by her parents who are retired nurses. About 10 days ago, she seemed more lethargic and she was brought to the Emergency Room. Urinalysis showed evidence of a urinary tract infection and the patient was started on Cipro. At that point, her Tegretol level was on the higher side, so her father reduced the dose of her Tegretol from 400 in the morning alternating with 200 mg on alternate days and 400 mg at night to Tegretol 200 mg in the morning and 400 mg in the evening. The patient finished her antibiotic course several days ago and became more lethargic, less interactive. It is not clear that there were any more seizures than usual. Her last bad "seizure" was 2-3 weeks ago, I believe that was a generalized seizure. Her more typical seizures are fluttering of her eyes or eye deviation and a myoclonic jerk. She will occasionally have head drops as well. Seizure control in the last several days seemed relatively at baseline. She was brought back to the Emergency Room where she was found to be mildly hypoxic. Her serum sodium was 120. Her Tegretol level was 18 having taken Tegretol about 3 hours prior. Her urinalysis showed ongoing gross infection and a chest x-ray showed pulmonary vascular congestion. The patient's Tegretol was held and her Depakote was continued. She was placed on ertapenem and this morning, her Tegretol level was 13.3 and her valproic acid, which was 92 the day before was 38. Ertapenem has been discontinued and ampicillin has been started. She is otherwise taking Lamictal 100 mg twice a day, Depakote 625 twice a day, Valium 5 mg b.i.d. and Tegretol 200 mg in the morning and 400 mg at night, but they are on hold. While the patient has not returned to baseline, when she is awake, she is more alert than she had been at home. Diagnostics also show a chronic albumin of 2.7. Her mother indicates that they had a dietary consultation and they have never been able to get it significantly increased. Labs today; sodium 123, chloride 87, BUN and creatinine ratio 57.3, osmolarity 254. AST on 06/05 was 43 and is now 106. Alkaline phosphatase was 150, is now 243. A CT of the head noncontrast was performed and I reviewed those images, which show no acute abnormality and motion degraded exam. PAST MEDICAL HISTORY: As above. Chronic constipation, G-tube in place for fluids, Leeroy filter, mental retardation. PAST SURGICAL HISTORY: Difficult ventilator weaning, ankle surgery, back surgery, history of cardiac cath, hysterectomy. FAMILY HISTORY: No history of seizure. SOCIAL HISTORY: Nonsmoker, nondrinker. The patient is disabled, lives with her parents. ALLERGIES: SHE IS ALLERGIC TO PHENOBARBITAL, WHICH CAUSED DEPRESSION. HOME MEDICATIONS: As above including magnesium, Sudafed, p.r.n. ibuprofen, levalbuterol, Colace, guaifenesin, levothyroxine, oxybutynin and Diflucan. PHYSICAL EXAMINATION: VITAL SIGNS: 118/68, 91, respirations 20. GENERAL: The patient is sleepy, but arousable by her mother. She appears bright. NEUROLOGIC: She follows some simple commands. Her head is normocephalic, atraumatic. Her extraocular motility was intact. There did not appear to be a fixed gaze preference nor was there any nystagmus. No facial asymmetry was noted. The patient is mute and trached. She appears to preferentially use her right arm to her left, but is able to elevate both in the air. No flap is noted. She is paraplegic and no movement is noted in the lowers. Reflexes are symmetric. Feet are contracted. Toes are downgoing. Sensory examination is not obtainable. IMPRESSION AND PLAN: Encephalopathy, likely related to infection, hyponatrmeia, polypharmacy, elevated Tegretol level, elevated transaminases, improving. I would recommend checking a Depakote and Tegretol level in the morning. Hopefully, the Depakote will rise and the Tegretol will fall. I think it is possible she would be able to resume her prior dosing of Tegretol, which is 200 mg in the morning, 400 mg on alternate days in the morning and 400 mg at night. Her Depakote level will likely rise. If she were to have breakthrough seizures, benzodiazepines are an option as is Katrinra for the short term. We will follow with you. Job ID: [id number] NENA
[2021-06-06] MEDS ORDERED: Nursing to Pharmacy Communication SCH (18:45)
[2021-06-06] MEDS ORDERED: SODIUM CHLORIDE 0.9% 1000ML 1,000 ML IV SCH (19:45)
[2021-06-06] MEDS: LEVOTHYROXINE SODIUM 175 MCG TABLET PEG SCH (21:28)
[2021-06-07 01:45] LABS: BUN Creatinine Ratio 41.3 (10-20); Blood Urea Nitrogen 11 mg/dl (7-18); Calcium 9.4 mg/dl (8.5-10.1); Carbon Dioxide 33 mmol/L (21-32); Chloride 90 mmol/L (98-107); Creatinine Clr Calc Pharmacy 251.2 ml/min; Est GFR (African American) > 150.0 ml/min; Est GFR (Non-African American) 141.9 ml/min; Glucose 91 mg/dl (70-99); Magnesium 2.4 mg/dl (1.8-2.4); Phosphorus 3.7 mg/dl (2.5-4.9); Potassium 4.2 mmol/L (3.5-5.1); Sodium 126 mmol/L (136-145)
--- NOTE | 2021-06-07 02:12 | Communication Note ---
Date of Service: June 07, 2021 Called to patient's bedside for tachycardia and upward eye deviation. Mother concerned that this is partial seizure activity, patient was responsive to my q uestions and able to maintain eye contact, but would then return to upward eye gaze; inconsistent with seizure activity at time of my bedside assessment. Lungs CTA, tachycardic irregular HR (EKG ordered which showed AFib with RVR). Heart rate was brief and converted spontaneously to HR 80s sinus rhythm. Labwork reviewed with Dr. Walton; low urine and serum Osm suggests SIADH, fluids held and repeat BMP ordered. Na 126 from 123 at 6am 06/06. To prevent rapid overcorrection ordered several q4h BMP. Continue fluid restriction and did add on sodium chloride tablets 1g BID to start in the AM. Mother is concerned about lower seizure threshold and asked if Tegretol and valproic acid levels will be followed; did place orders for repeat levels with 6am lab draw. Resident Activity Tracking Resident Involvement: Resident Care Provided Care Provided: Adult Hospital Medicine
[2021-06-07] MEDS ORDERED: Heparin IV Adult Wt-Based Standard *NO* Bolus Protocol IV SCH (03:55)
[2021-06-07] MEDS ORDERED: METOPROLOL TARTRATE 1 MG/ML VIAL IV STA (03:56)
[2021-06-07] MEDS: AMPICILLIN 1,000 MG in SODIUM CHLOR 0.9% AD-VAN 50 ML IV SCH ×4 (04:10→22:05)
[2021-06-07 05:08] LABS: Partial Thromboplastin Ratio 1.1; Partial Thromboplastin Time 27.8 Seconds (21.0-31.0)
[2021-06-07 05:15] LABS: Creatinine Clr Calc Pharmacy 212.4 ml/min; Est GFR (African American) > 150.0 ml/min; Est GFR (Non-African American) 132.6 ml/min
[2021-06-07] MEDS: HEPARIN SODIUM/DEXTROSE 25,000 UNITS/500 ML BAG IV SCH (05:17)
[2021-06-07 07:23] LABS: BUN Creatinine Ratio 31.5 (10-20); Blood Urea Nitrogen 9 mg/dl (7-18); Calcium 9.6 mg/dl (8.5-10.1); Carbon Dioxide 34 mmol/L (21-32); Chloride 94 mmol/L (98-107); Creatinine Clr Calc Pharmacy 234.4 ml/min; Est GFR (African American) > 150.0 ml/min; Est GFR (Non-African American) 136.9 ml/min; Glucose 92 mg/dl (70-99); Sodium 129 mmol/L (136-145)
[2021-06-07] MEDS: MAGNESIUM OXIDE 400 MG TAB PO SCH (08:01)
[2021-06-07] MEDS: SODIUM CHLORIDE 1 GM TABLET PO SCH ×2 (08:04→20:09)
[2021-06-07] MEDS: guaiFENesin 600 MG TABCR PO SCH ×2 (08:05→20:07)
[2021-06-07] MEDS: DOCUSATE SODIUM SYRUP 100 MG/10 ML UDC PO SCH (08:07)
[2021-06-07] MEDS: lamoTRIgine 100 MG TAB PO SCH ×2 (08:07→20:07)
[2021-06-07] MEDS: MULTIVITAMIN TAB PO SCH (08:07)
[2021-06-07] MEDS: PANTOprazole 40 MG TAB PO SCH (08:08)
[2021-06-07] MEDS: diazePAM 5 MG TABLET PO SCH ×2 (08:08→21:21)
[2021-06-07 08:45] LABS: Carbamazepine Tegretol 8.9 mcg/ml (4-12)
[2021-06-07] MEDS ORDERED: MAGNESIUM OXIDE 400 MG TAB PO SCH (09:00)
[2021-06-07] MEDS: VALPROIC ACID 50 MG/ML UDP PO SCH ×2 (09:26→23:42)
[2021-06-07] MEDS: METOPROLOL TARTRATE 25 MG TAB PO SCH ×2 (09:32→20:08)
--- NOTE | 2021-06-07 11:01 | Pharmacy Report ---
Pharmacy Abx Dose Short Note - Date of Service June 07, 2021 - Assessment & Plan Assessment * 50 year old F receiving GENTAMICIN + AMPICILLIN for treatment of complicated UTI. Pharmacy to dose GENTAMICIN * Day # of antimicrobial therapy. * Prior urine cx's grew ESBL klebsiella pn as well as enterococcus faecalis * Urine cx this admission growing GNR * Had been receiving ertapenem therapy for ESBL kleb coverage however due to significant interaction with valproic acid, therapy will be changed to gent IV based upon prior sensitivities * Renal fxn difficult to assess given body habitus and low muscle mass. SCr unchanged in last 24 hrs Plan Gentamicin * 312mg (~5mg/kg adj BW) x 1 given yesterday. * Random gent level drawn ~9 hrs after start of infusion = 3.5mcg/mL * Level indicates patient is a candidate for Q 24 hr extended interval dosing per [facility] * Will continue 312mg IV Q 24 hrs * Plan to repeat random level in 2 days to confirm accumulation has not occurred Pharmacy will continue to follow and will adjust dose/frequency as necessary. Dave beckham.
[2021-06-07] MEDS: VALPROIC ACID SOLN 500 MG/10 ML UDC PO SCH ×2 (11:40→20:06)
[2021-06-07 12:09] LABS: BUN Creatinine Ratio 40.8 (10-20); Blood Urea Nitrogen 11 mg/dl (7-18); Calcium 9.5 mg/dl (8.5-10.1); Carbon Dioxide 33 mmol/L (21-32); Chloride 95 mmol/L (98-107); Creatinine Clr Calc Pharmacy 242.7 ml/min; Est GFR (African American) > 150.0 ml/min; Est GFR (Non-African American) 138.5 ml/min; Glucose 82 mg/dl (70-99); Potassium 4.1 mmol/L (3.5-5.1); Sodium 129 mmol/L (136-145)
[2021-06-07 12:12] LABS: Partial Thromboplastin Ratio 2.9
[2021-06-07 12:13] LABS: Partial Thromboplastin Time 75.5 Seconds (21.0-31.0)
[2021-06-07] MEDS ORDERED: carBAMazepine 200 MG TABLET PO ONE ×2 (13:13→23:00)
[2021-06-07] MEDS: DEXTROSE 5% IV SCH (14:20)
[2021-06-07] MEDS: GENTAMICIN SULFATE IV SCH (14:20)
[2021-06-07] MEDS ORDERED: KETOROLAC TROMETHAMINE 15 MG/ML VIAL IV ONE ×2 (14:47→16:15)
--- NOTE | 2021-06-07 16:49 | XCELERA ---
[id number]
[2021-06-07] MEDS ORDERED: carBAMazepine 100 MG CHEW TAB PO SCH (17:00)
--- NOTE | 2021-06-07 17:21 | Progress Notes ---
DATE OF NOTE: 06/07/2021. I am seeing the patient in followup of seizure. She was admitted for a microbial resistant urinary t ract infection. She was initially on an antibiotic that interacted with her Depakote and her Depakot e level has fallen. Her labs today Tegretol is 8.9 and Depakote 35. Her serum sodium is 129, which is within its general range of her normal. The patient had three episodes of atrial fibrillation wit h rapid ventricular response and is on heparin. The patient had one seizure, which the parents patricia d a severe seizure with eyes rolling up, some twitching of the muscles of her face. This lasted init ially 2 minutes, but then probably a total of 10 and then there was about 10 minutes of postictal beh avior. She has not had any seizures since this morning and she is more awake and alert. Her baselin e home doses of Tegretol are 200 each morning alternating on alternate days with 400 mg and 400 mg in the evening. Her baseline Depakote dose is 625 b.i.d., Lamictal is 100 b.i.d. and Valium is taken, I believe, twice a day. Today due to seizure she received a total additional 1000 mg of Depakote. On examination, she is awake and alert and follows some simple commands. No seizure activity is note d. There is no forced eye deviation. The patient is unable to smile. She lifts her arms up symmetr ically. 139/82, 69, 22, 36.4, 96%. 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 The i nitial antibiotic that the patient was on lowered the Depakote level. The Depakote level remained lo w this morning, but the patient was appropriately given additional 1000 mg of Depakote. Depakote dos ing was resumed. Her Tegretol was given 200 mg this morning and 300 mg this afternoon and I recommen d giving 400 mg this evening and then tomorrow starting Tegretol 300 mg each morning and 400 mg each evening with a Depakote and Tegretol level daily. Fortunately, the patient has not had any recurrent seizures having received the additional Depakote. If she were to have recurrent seizures, an option would be to load her with a gram of Keppra. This would not necessarily need to be used long-term. We will follow with you. Job ID: [id number]
--- NOTE | 2021-06-07 18:26 | Electrocardiogram Report ---
Test Reason : Blood Pressure : / mmHG Vent. Rate : 112 BPM Atrial Rate : 159 BPM P-R Int : 000 ms QRS Dur : 096 ms QT Int : 320 ms P-R-T Axes : 000 046 262 degrees QTc Int : 436 ms Atrial fibrillation with rapid ventricular response Abnormal ECG When compared with ECG of 24-MAY-2021 20:41, Atrial fibrillation has replaced Sinus rhythm Vent. rate has increased BY 39 BPM T wave inversion more evident in Lateral leads Confirmed by Anthony Mejia ([id number]) on 06/07/2021 6:25:45 PM Referred By: Jt Liu Confirmed By:Ravindra Mejia
--- NOTE | 2021-06-07 18:26 | CT Scan Report ---
CT abd pelvis oral con only CLINICAL HISTORY: Abdominal pain COMPARISON STUDY: 04/04/2021 FINDINGS: The patient was imaged following administration of dilute oral contrast. No intravenous contrast was administered. The visualized portions the lung bases reveal small bilateral pleural effusions. There is bilateral l ower lobe atelectasis/consolidation left or severe than right. There are hypodense hepatic lesions, statistically representing cysts. There is cholelithiasis. The gallbladder is nondistended No splenic masses are visualized. Masses are visualized in this noncontrast study. No adrenal masses are visualized. There are bilateral nonobstructing renal calculi. There are no transition zones to indicate bowel obstruction. There is no evidence of acute diverticul itis. The appendix appears normal. There is no evidence of abdominal aortic aneurysm. There is an indwelling IVC filter. Filter struts p rotruding beyond the IVC lumen. The uterus appears surgically absent. There is an indwelling Larson catheter. There is no significant ascites. There is no free intraperitoneal air. The examination is mildly compromised due to the patient's large body habitus, lack of intravenous co ntrast, and motion related artifact. IMPRESSION: 1. No evidence of bowel obstruction. No evidence of free air 2. Normal appendix. No evidence of acute diverticulitis 3. Bilateral nephrolithiasis. No ureteral calculi identified 4. Cholelithiasis. No gallbladder distention 5. Bilateral pleural effusions with bibasilar atelectasis/consolidation ACT 112: Negative or not required by law. Electronically signed by: Russel Terrazas M.D. 06/07/2021 6:25 PM
--- NOTE | 2021-06-07 19:59 | Hospitalist Progress Note ---
Date of Service June 07, 2021 Assessment & Plan (1) Infectious encephalopathy: * less likely Infectious and/or Metabolic encephalopathy, consider toxic encephalopathy from Tegretol toxicity * CT of the head negative for acute process , CT abdomen and pelvis negative for acute issues but does have gall stones and non obstructive kidney stones * hyponatremia also influencing * Fluid restriction and aspiration precautions, start isotonic saline as pts po intake has been poor * nutrition consult to augment nutrition via peg, mother typically does sometimes at home (2) UTI (urinary tract infection): * Pt has a history of Polymicrobial/multidrug-resistanturinary infections, was given cipro * based on prior culture data (done 05/24/2021), Invanz + ampicillin were chosen, however the Invanz can lower valproic acid levels, will change to Gentamicin * Blood cultures and urine cultures negative to day * (3) Afib: did have some afib overnight, converted with metoprolol was placed on heparin gtt, will continue heparin for 48 hours, this is new for her,electrolytes are normal, tsh is normal echocardiogram is normal (4) Acute hyponatremia: * Patient with chronic hyponatremia (likely from her chronic antiseizure meds) with an acute exacerbation * In addition, Tegretol toxicity likely further driving hyponatremia * low osmolality, given poor po intake reluctance to use free water via peg, * hyponatremia now at baseline (5) Tegretol toxicity: * now will restart tegretol at 300mg a day after augmenting in am with additional 200 mg, mother states does best around 10, elevation most likely spurred on by Cipro Rx (6) Generalized epilepsy: * Continue patient's valproic acid, low level 06/15. 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 Looney who agrees (9) Moderate malnutrition: pts albumin is low, not eating due to encephalopathy, will ask for Nutrition consult to help consider augmenting tube feeds until mental status improved (10) Pulmonary edema: initial concerns on imaging for acute pulmonary edema, treated with lasix, may have more been aspiration pneumonitis, we do not have echo on this pt will perform echo (11) DVT prophylaxis: * Lovenox 40 mg SQ daily Admission and Anticipated Discharge Date Admission Date: June 05, 2021 Subjective pt is more alert, her family states she is in some discomfort as they read her behavior, Her mother and father are at the bedside. The pt does not have a confirmed uti and blood cultures are negative at this time continues with hyponatremia but now is in typical range, may have been toxic encephalopathy from Tegretol toxicity spurred by cipro Review of Systems Review of Systems: Unobtainable she maybe has come confirmation to headache Physical Exam Physical Exam: The patient appeared chronically ill she is been developmentally challenged and has a chronic trach and PEG tube Vital signs as documented. Head exam is normocephalic atraumatic Neck is with tracheostomy with humidified oxygen at 5 L via trach collar Lungs are coarse without focal air loss Cardiac exam, Rhythm is regular.. No murmurs, rubs or gallops. Abdominal exam reveals normal bowel sounds, soft non tender PEG tube is in place at the left upper quadrant Extremities are nonedematous and both pedal pulses are present Neurologic exam does awaken to verbal stimuli attempts to follow commands much less sleepy Mother at the bedside is concern for headache or abdominal issues Skin is without bruises or rashes Results & Data Results & Data ([facility]) Vital Signs (Past 12 Hours) Vital Signs Temp Pulse Pulse Resp BP BP Pulse Ox 06/07/21 19:30 74 20 95 06/07/21 15:55 97.5 F L 69 22 139/82 96 06/07/21 15:23 69 06/07/21 11:45 98.1 F 81 22 143/81 H 95 06/07/21 08:00 98.2 F 75 16 162/86 H 95 PG Care Time/CCT Total # of Minutes Spent Total Time Spent with Patient: Total time spent is greater than 50% in coordination of care (as documented) at patient's floor/unit and/or counseling patient: Coding Level of Care Code 58955 Subseq Hosp Care Lvl 3 Diagnoses Infectious encephalopathy G93.49; B99.9 UTI (urinary tract infection) N39.0 Afib I48.91 Acute hyponatremia E87.1 Tegretol toxicity T42.1X1A Generalized epilepsy G40.309 Mental retardation F79 Tracheostomy tube present Z93.0 Moderate malnutrition E44.0 Pulmonary edema J81.1 DVT prophylaxis Z29.9
[2021-06-07] MEDS: LEVOTHYROXINE SODIUM 175 MCG TABLET PEG SCH (20:08)
[2021-06-07 20:12] LABS: Partial Thromboplastin Ratio 2.7
[2021-06-07 20:32] LABS: Partial Thromboplastin Time 72.1 Seconds (21.0-31.0)
[2021-06-08] MEDS: AMPICILLIN 1,000 MG in SODIUM CHLOR 0.9% AD-VAN 50 ML IV SCH ×4 (04:05→22:03)
[2021-06-08 04:25] LABS: Hematocrit (blood only) 30.5 % (37-47); Hemoglobin 10.9 g/dL (12.0-16.0); Mean Corpuscular Hemoglobin 32.2 pg (25-34); Mean Corpuscular Hgb Conc 35.7 g/dL (32-36); Mean Corpuscular Volume 90.2 fL (80-100); Mean Platelet Volume 9.8 fL (7.4-10.4); Platelet Count 113 K/uL (130-400); RDW Coefficient of Variation 14.7 % (11.5-14.5); RDW Standard Deviation 48.5 fL (36.4-46.3); Red Blood Count 3.38 M/uL (4.2-5.4); White Blood Count 5.03 K/uL (4.8-10.8)
[2021-06-08 04:44] LABS: BUN Creatinine Ratio 59.9 (10-20); Blood Urea Nitrogen 13 mg/dl (7-18); Calcium 8.7 mg/dl (8.5-10.1); Carbon Dioxide 33 mmol/L (21-32); Chloride 94 mmol/L (98-107); Creatinine Clr Calc Pharmacy 308.9 ml/min; Est GFR (African American) > 150.0 ml/min; Glucose 87 mg/dl (70-99); Potassium 4.6 mmol/L (3.5-5.1); Sodium 128 mmol/L (136-145)
[2021-06-08 04:55] LABS: Carbamazepine Tegretol 10.2 mcg/ml (4-12)
[2021-06-08 05:00] LABS: Partial Thromboplastin Ratio 3.5
[2021-06-08] MEDS: HEPARIN SODIUM/DEXTROSE 25,000 UNITS/500 ML BAG IV SCH ×2 (07:29→08:00)
[2021-06-08] MEDS: DOCUSATE SODIUM SYRUP 100 MG/10 ML UDC PO SCH (08:22)
[2021-06-08] MEDS: PANTOprazole 40 MG TAB PO SCH (08:22)
[2021-06-08] MEDS: METOPROLOL TARTRATE 25 MG TAB PO SCH ×2 (08:22→20:44)
[2021-06-08] MEDS: guaiFENesin 600 MG TABCR PO SCH ×2 (08:22→17:13)
[2021-06-08] MEDS: SODIUM CHLORIDE 1 GM TABLET PO SCH ×2 (08:22→20:43)
[2021-06-08] MEDS: MULTIVITAMIN TAB PO SCH (08:22)
[2021-06-08] MEDS: lamoTRIgine 100 MG TAB PO SCH ×2 (08:22→17:14)
[2021-06-08] MEDS: carBAMazepine 100 MG CHEW TAB PO SCH (08:23)
[2021-06-08] MEDS: OXYBUTYNIN CHLORIDE XL 5 MG TABCR PO PRN (08:23)
[2021-06-08] MEDS: VALPROIC ACID 50 MG/ML UDP PO SCH ×2 (08:24→22:03)
[2021-06-08] MEDS: MAGNESIUM OXIDE 400 MG TAB PO SCH (08:27)
[2021-06-08] MEDS: diazePAM 5 MG TABLET PO SCH ×2 (08:27→17:12)
[2021-06-08] MEDS ORDERED: VALPROIC ACID SOLN 500 MG/10 ML UDC PEG ONE (11:00)
[2021-06-08] MEDS ORDERED: METOPROLOL TARTRATE 25 MG TAB PO ONE (12:00)
[2021-06-08 12:48] LABS: Partial Thromboplastin Ratio 2.6
[2021-06-08 12:51] LABS: Partial Thromboplastin Time 69.1 Seconds (21.0-31.0)
--- NOTE | 2021-06-08 12:52 | Cardiology Consultation ---
Date of Consultation June 08, 2021 Assessment & Plan (1) Afib: (2) Infectious encephalopathy: (3) Paraplegia: I had a long discussion with the patient's mother who was at her bedside today. I think we should continue the patient on metoprolol and heparin for now, but the question of long-term anticoagulation will need to be addressed. Her mother informs me that at the time of her accident she was on Coumadin but they could never adjust the INR due to the Tegretol which she takes for her seizures. There is always a risk versus benefit in regard to preventing strokes and atrial fibrillation versus bleeding. She is not mobile but the tracheostomy can be a source of bleeding especially when it suctioned. We could start her on Eliquis instead of warfarin or we could just add a daily aspirin to her medical regimen at discharge. Currently the patient should stay on metoprolol and heparin. I will speak further with the family later in her hospital course. History of Present Illness Attending Physician: London Cho MD History of Present Illness This is a 50-year-old female who is mentally challenged approximately 5 years ago fell resulting in a spinal cord injury and resultant paraplegia. She has a history of a seizure disorder which caused her fall and injury. At that time she had a DVT and a Aurora filter was placed. The patient also received a tracheostomy. She is cared for by her parents. She was admitted with mental status changes and hyponatremia felt to be due to a UTI. On telemetry she has had episodes of paroxysmal atrial fibrillation and this morning she had an episode that lasted approximately 5 hours that was asymptomatic. It should be noted that she may have converted at the time that she was had her tracheostomy suctioned. She had an echocardiogram completed this admission which was essentially normal. She is on thyroid hormone replacement and she is therapeutic. Allergies Allergy/AdvReac Type Severity Reaction Status Date / Time phenobarbital AdvReac Intermediate depresssed Verified 05/24/21 21:24 Home Medications Medication Instructions Recorded Confirmed Type diazepam 5 mg tablet 5 mg PO BID 11/14/18 06/05/21 History magnesium oxide 200 mg PO Q2D 11/14/18 06/05/21 History magnesium oxide 400 mg PO Q2D 11/14/18 06/05/21 History pseudoephedrine HCl 30 mg tablet 30 mg PO DAILY PRN 01/29/20 06/05/21 History (Sudafed) ibuprofen 200 mg tablet 400 - 600 mg PO UD PRN 10/17/20 06/05/21 History levalbuterol HCl 0.63 mg/3 mL 0.63 mg INHALATION Q8 PRN 10/17/20 06/05/21 History solution for nebulization carbamazepine 200 mg tablet 400 mg PO HS 05/24/21 06/05/21 History carbamazepine 200 mg tablet 200 mg PO DAILY 05/24/21 06/05/21 History (Tegretol) carbamazepine 200 mg tablet 400 mg PO Q OTHER DAY 05/24/21 06/05/21 History (Tegretol) docusate sodium 60 mg/15 mL oral 100 mg PO QAM 05/24/21 06/05/21 History syrup guaifenesin 600 mg tablet, 600 mg PO BID 05/24/21 06/05/21 History extended release 12 hr lamotrigine 100 mg tablet 100 mg PO BID 05/24/21 06/05/21 History (Lamictal) levothyroxine 175 mcg tablet 175 mcg FEEDING TUBE DAILY@2100 05/24/21 06/05/21 History multivitamin 1 tab PO QAM 05/24/21 06/05/21 History mupirocin 2 % topical ointment 1 applic TOPICAL DAILY 05/24/21 06/05/21 History oxybutynin chloride 10 mg 10 mg PO DAILY PRN 05/24/21 06/05/21 History tablet,extended release 24 hr valproic acid (as sodium salt) 250 625 mg FEEDING TUBE BID 05/24/21 06/05/21 History mg/5 mL oral solution fluconazole 150 mg tablet 150 mg PO Q3D #2 tab 05/27/21 06/05/21 Rx (Diflucan) Patient History Medical History Chronic constipation Gastrointestinal tube present Generalized epilepsy (09/22/11) Aurora filter in place 2014 -Placed after back surgery prophylactically Mental retardation Surgical History Difficult ventilator weaning 2015 - post op back surgery History of ankle surgery left ankle History of back surgery 2014 History of cardiac cath [place] 2015 Hx of hysterectomy, total 2009 Family History Other No pertinent family history in first degree relatives Social History Smoking Status: Never smoker Second Hand Exposure: No; Hx Alcohol Use: No Hx Substance Use: No Preferred Language: Spanish Communication Ability: Impaired International Sales Representative Required: No Beliefs That Will Affect Care: None Current Living Situation: Parent Other Information That Helps Us Care for You: No Feels Safe at Home: Yes Assistive Devices: Mechanical Lift and Oxygen - Continuous Review of Systems Review of Systems: Review of Systems: See HPI for pertinent positives. All other 10 point review of systems are negative. Physical Exam Physical Exam: General: no acute distress, patient is nonconversive Head: normocephalic, no masses, lesions, tenderness or abnormalities Eyes: conjunctiva are pink and non-injected, sclera clear Neck: Tracheostomy in place Chest: normal shape and normal respiratory effort Lungs: clear to auscultation and percussion Cardiac Exam: - regular rate & rhythm, no murmurs gallops or rubs - normal S1, normal S2 Pulses: 2(+) throughout Abdomen: abdomen soft, non-tender, no abnormal masses and no hepatosplenomegaly Musculoskeletal: no gait disturbance, no joint inflammation, no deforming arthritis Extremities: Contractures from paraplegia Neuro: grossly normal exam Results & Data ([facility]) Vital Signs (Past 12 Hours) Vital Signs Temp Pulse Pulse Resp BP BP Pulse Ox 06/08/21 12:04 36.3 C L 84 17 125/92 95 06/08/21 08:10 36.7 C 105 H 19 136/109 H 99 06/08/21 08:00 104 H 06/08/21 04:55 36.6 C 63 20 126/79 95 Laboratory Results Laboratory Results - last 24 hr 06/07/21 06/08/21 06/08/21 19:39 04:10 04:10 WBC 5.03 RBC 3.38 L Hgb 10.9 L Hct 30.5 L MCV 90.2 MCH 32.2 MCHC 35.7 RDW Std Deviation 48.5 H RDW Coeff of Nazanin 14.7 H Plt Count 113 L MPV 9.8 APTT 72.1 H* PTT Ratio 2.7 Sodium 128 L Potassium 4.6 Chloride 94 L Carbon Dioxide 33 H Anion Gap 1.0 L BUN 13 Creatinine 0.22 L Est Cr Clr Drug Dosing 308.9 Est GFR ( Amer) > 150.0 Est GFR (Non-Af Amer) 150.0 BUN/Creatinine Ratio 59.9 H Glucose 87 Calcium 8.7 Valproic Acid Carbamazepine 06/08/21 06/08/21 06/08/21 04:10 04:10 12:11 WBC RBC Hgb Hct MCV MCH MCHC RDW Std Deviation RDW Coeff of Nazanin Plt Count MPV APTT 92.0 H* 69.1 H* PTT Ratio 3.5 2.6 Sodium Potassium Chloride Carbon Dioxide Anion Gap BUN Creatinine Est Cr Clr Drug Dosing Est GFR ( Amer) Est GFR (Non-Af Amer) BUN/Creatinine Ratio Glucose Calcium Valproic Acid 44 L Carbamazepine 10.2 Medications Administered Current Inpatient Medications Acetaminophen (Acetaminophen 325 Mg Tab) 650 mg PEG Q4H PRN PRN Reason: Pain or Fever Stop: 07/05/21 21:20 Carbamazepine (Carbamazepine 100 Mg Chew Tab) 300 mg [facility] [place] Stop: 07/08/21 08:59 Last Admin: 06/08/21 08:23 Dose: 300 mg Documented by: Carbamazepine (Carbamazepine 200 Mg Tablet) 400 mg PO 1700 [facility] Stop: 07/08/21 16:59 Diazepam (Diazepam 5 Mg Tablet) 5 mg PO BID@0900,1700 [facility]; Protocol Stop: 07/06/21 16:59 Last Admin: 06/08/21 08:27 Dose: 5 mg Documented by: Docusate Sodium (Docusate Sodium Syrup 100 Mg/10 Ml Udc) 100 mg PO [facility] Stop: 07/06/21 08:59 Last Admin: 06/08/21 08:22 Dose: 100 mg Documented by: Enoxaparin Sodium (Enoxaparin Inj 40 Mg/0.4 Ml Syr) 40 mg SQ [facility] [place] Stop: 07/06/21 08:59 Last Admin: 06/06/21 08:03 Dose: 40 mg Documented by: Guaifenesin (Guaifenesin 600 Mg Tabcr) 600 mg PO BID@0900,1700 [facility]; Protocol Stop: 07/06/21 16:59 Last Admin: 06/08/21 08:22 Dose: 600 mg Documented by: Lorazepam (Ativan) 2 mg in 4 mls @ 4 mls/min IV Q4H PRN PRN Reason: seizure Stop: 07/05/21 21:20 Ampicillin Sodium 1,000 mg/ (Sodium Chloride) 50 mls @ 100 mls/hr IV Q6H [facility] Stop: 06/15/21 21:59 Last Infusion: 06/08/21 10:56 Dose: Infused Documented by: Heparin Sodium/Dextrose (Heparin Sodium/Dextrose) 25,000 units in 500 mls @ 17 mls/hr IV .Q24H [facility]; Protocol Stop: 07/07/21 04:10 Last Titration: 06/08/21 12:53 Dose: 850 units/hr, 17 mls/hr Documented by: Gentamicin Sulfate 312 mg/ (Dextrose) 107.8 mls @ 107.8 mls/hr IV Q24H [facility] Stop: 06/15/21 14:59 Last Infusion: 06/07/21 15:44 Dose: Infused Documented by: Ketorolac Tromethamine (Ketorolac Tromethamine 15 Mg/Ml Vial) 15 mg IV Q6H PRN PRN Reason: Pain Stop: 06/13/21 11:46 Lamotrigine (Lamotrigine 100 Mg Tab) 100 mg PO BID@0900,1700 [facility]; Protocol Stop: 07/06/21 16:59 Last Admin: 06/08/21 08:22 Dose: 100 mg Documented by: Levalbuterol HCl (Levalbuterol Hcl 0.63 Mg/3 Ml Neb) 0.63 mg INH Q8 PRN PRN Reason: Wheezing Stop: 07/05/21 21:20 Levothyroxine Sodium (Levothyroxine Sodium 175 Mcg Tablet) 175 mcg PEG DAILY@2100 [facility] Stop: 07/05/21 21:20 Last Admin: 06/07/21 20:08 Dose: 175 mcg Documented by: Magnesium Oxide (Magnesium Oxide 400 Mg Tab) 400 mg PO DAILY@0730 [facility] Stop: 07/07/21 07:29 Last Admin: 06/08/21 08:27 Dose: 400 mg Documented by: Metoprolol Tartrate (Metoprolol Tartrate 25 Mg Tab) 25 mg PO BID [facility] Stop: 07/08/21 20:59 Miscellaneous Information (Gentamicin Consult Active) 1 ea N/A UD PRN PRN Reason: Consult Stop: 07/06/21 13:46 Multivitamins (Multivitamin Tab) 1 tab PO QAM [facility] Stop: 07/06/21 08:59 Last Admin: 06/08/21 08:22 Dose: 1 tab Documented by: Ondansetron HCl (Ondansetron Inj 2 Mg/Ml 2 Ml Vial) 4 mg IV Q6H PRN PRN Reason: Nausea Stop: 07/05/21 21:20 Oxybutynin Chloride (Oxybutynin Chloride Xl 5 Mg Tabcr) 10 mg PO DAILY PRN PRN Reason: Catheter change/Bladder Spasm Stop: 07/05/21 21:20 Last Admin: 06/08/21 08:23 Dose: 10 mg Documented by: Pantoprazole Sodium (Pantoprazole 40 Mg Tab) 40 mg PO DAILY [facility] Stop: 07/06/21 08:59 Last Admin: 06/08/21 08:22 Dose: 40 mg Documented by: Sodium Chloride (Sodium Chloride 1 Gm Tablet) 1 gm PO BID [facility] Stop: 07/07/21 08:59 Last Admin: 06/08/21 08:22 Dose: 1 gm Documented by: Valproic Acid (Valproic Acid 50 Mg/Ml Udp) 625 mg PO BID [facility] Stop: 07/05/21 21:20 Last Admin: 06/08/21 08:24 Dose: 625 mg Documented by:
[2021-06-08] MEDS ORDERED: OPTIRAY 320 125ml IV ONE (13:44)
--- NOTE | 2021-06-08 13:57 | CT Scan Report ---
CT ANGIOGRAM OF THE CHEST CLINICAL HISTORY: Shortness of breath. Possible pulmonary embolism. COMPARISON STUDY: Chest x-ray dated 06/06/2021, CT scan performed September 2009 TECHNIQUE: Following the IV administration of 120 mL of Optiray, CT angiogram of the thorax was perfo rmed from the thoracic inlet to the lung bases utilizing the pulmonary embolus protocol. Images are r eviewed in the axial, sagittal, and coronal planes. IV contrast was administered without complication . MIP imaging was performed. A dose lowering technique was utilized adhering to the principles of [place] JULIANA. CT DOSE: 646.98 mGy.cm FINDINGS: There are hypodense hepatic lesions which while nonspecific statistically represent cysts. There is a mildly enlarged 11 mm right paratracheal lymph node. There are borderline enlarged right h ilar lymph nodes. There was no evidence of thoracic aortic dilatation. There were no pulmonary artery filling defects to indicate acute pulmonary embolism. There are small bilateral pleural effusions left greater than right. There are multifocal bilateral pulmonary airspace opacities consistent with a multifocal pneumonia. There is elevation of the right hemidiaphragm. There is an indwelling tracheostomy tube. There is anterior fusion of the cervical and upper thoracic spine. IMPRESSION: 1. No evidence of acute pulmonary embolism 2. Elevation of the right hemidiaphragm 3. Small bilateral pleural effusions 4. Multifocal pulmonary airspace opacities consistent with a multifocal pneumonia ACT 112: Negative or not required by law. Electronically signed by: Russel Terrazas M.D. 06/08/2021 1:56 PM
[2021-06-08] MEDS: GENTAMICIN SULFATE IV SCH (15:01)
[2021-06-08] MEDS: DEXTROSE 5% IV SCH (15:01)
[2021-06-08] MEDS: KETOROLAC TROMETHAMINE 15 MG/ML VIAL IV PRN (15:04)
[2021-06-08] MEDS ORDERED: carBAMazepine 200 MG TABLET PO SCH (17:00)
--- NOTE | 2021-06-08 17:04 | Progress Notes ---
DATE OF NOTE: 06/08/2021 I am seeing the patient in followup of seizures and intellectual disability and post-traumatic parapl egia. The patient has done well overnight without any seizures. Her mother indicates she slept for about 6 hours and has been sleepy this afternoon. No true seizure activity has been noted. Occasion al eye rolling was noted. Occasional twitching of the right face as well, which could be a seizure m anifestation, albeit brief. The patient's Depakote level is 44, Tegretol 10.2 and her serum sodium 1 28. She was awake and alert. Eye movements are conjugate and roving. 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 Interactions with antibiotics have lowered the level of her Depakote and raised the dose of her Teg retol. Tegretol is trending back to her baseline as is her serum sodium and Depakote has trended upw ards. I would make no changes in anticonvulsants today. I would check Tegretol and Depakote level t omorrow. I will see her in followup tomorrow. Job ID: [id number]
--- NOTE | 2021-06-08 17:45 | Hospitalist Progress Note ---
Date of Service June 08, 2021 Assessment & Plan (1) Infectious encephalopathy: Plan: Patient now considered to have metabolic encephalopathy from multifocal pneumonia likely concern for aspiration pneumonia. 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 There was some concern that the Invanz was creating issues with her seizure medications. Subsequently to the ltocal pneumonia will complete a 7-day course and reassess (2) UTI (urinary tract infection): Plan: Has been ruled out by less than 20,000 colonies (3) Afib: Plan: Remains with intermittent bouts of A. fib likely spurred upon her metabolic stressors of the multifocal pneumonia. Continues on metoprolol and heparin with considerations for long-term anticoagulation ongoing with cardiology. Patient is known to have previously had a [place] filter in place which was not removed (4) Acute hyponatremia: Plan: Patient remains with hyponatremia near normal range (5) Tegretol toxicity: Plan: Patient Tegretol toxicity now returning to dose to 3 mg a day level is 10 continue to check levels to make sure it stays at that range. Reportedly her mother states it works best with near the upper end of the therapeutic window (6) Generalized epilepsy: Plan: Valproic acid and carbamazepine or use valproic acid remains low was augmented on 06/08 (7) Mental retardation: Plan: Patient with functional quadriplegia (8) Tracheostomy tube present: (9) Moderate malnutrition: Plan: Patient is now eating better there is nutrition follow-up (10) Pulmonary edema: Plan: This was seen on presentation she did receive a dose of Lasix however her echocardiogram supports the fact that she was not in congestive heart failure but we may have been seeing aspiration pneumonitis (11) DVT prophylaxis: Plan: Patient is now on therapeutic heparin Admission and Anticipated Discharge Date Admission Date: June 05, 2021 Subjective pt is more alert, her family states she is in some discomfort as they read her behavior, Her mother and father are at the bedside. The pt does not have a confirmed uti and blood cultures are negative at this time, due to consistent discomfort, cta of chest shows multifocal pnemonia. continues with hyponatremia but now is in typical range, may have been toxic encephalopathy from Tegretol toxicity spurred by cipro Review of Systems Review of Systems: Unobtainable she maybe has come confirmation to headache Physical Exam Physical Exam: The patient appeared chronically ill she is been developmentally challenged and has a chronic trach and PEG tube Vital signs as documented. Head exam is normocephalic atraumatic Neck is with tracheostomy with humidified oxygen at 5 L via trach collar Lungs are coarse without focal air loss Cardiac exam, Rhythm is regular.. No murmurs, rubs or gallops. Abdominal exam reveals normal bowel sounds, soft non tender PEG tube is in place at the left upper quadrant Extremities are nonedematous and both pedal pulses are present Neurologic exam does awaken to verbal stimuli attempts to follow commands much less sleepy Mother at the bedside is concern for headache or abdominal issues Skin is without bruises or rashes Results & Data Results & Data ([facility]) Vital Signs (Past 12 Hours) Vital Signs Temp Pulse Pulse Resp BP Pulse Ox 06/08/21 17:34 65 06/08/21 15:09 97.9 F 64 18 121/58 L 97 06/08/21 12:04 97.3 F L 84 17 125/92 95 06/08/21 08:10 98.1 F 105 H 19 136/109 H 99 06/08/21 08:00 104 H PG Care Time/CCT Total # of Minutes Spent Total Time Spent with Patient: Total time spent is greater than 50% in coordination of care (as documented) at patient's floor/unit and/or counseling patient: Coding Level of Care Code 71445 Subseq Hosp Care Lvl 3 Diagnoses Infectious encephalopathy G93.49; B99.9 UTI (urinary tract infection) N39.0 Afib I48.91 Acute hyponatremia E87.1 Tegretol toxicity T42.1X1A Generalized epilepsy G40.309 Mental retardation F79 Tracheostomy tube present Z93.0 Moderate malnutrition E44.0 Pulmonary edema J81.0 Chronicity: acute DVT prophylaxis Z29.9 (1) Pulmonary edema Chronicity: acute Qualified Code(s): J81.0 - Acute pulmonary edema
[2021-06-08 20:34] LABS: Partial Thromboplastin Ratio 2.3
[2021-06-08 20:35] LABS: Partial Thromboplastin Time 61.5 Seconds (21.0-31.0)
[2021-06-08] MEDS: LEVOTHYROXINE SODIUM 175 MCG TABLET PEG SCH (20:44)
[2021-06-09] MEDS: AMPICILLIN 1,000 MG in SODIUM CHLOR 0.9% AD-VAN 50 ML IV SCH ×4 (04:10→22:23)
[2021-06-09 04:14] LABS: Hematocrit (blood only) 31.8 % (37-47); Hemoglobin 11.2 g/dL (12.0-16.0); Mean Corpuscular Hgb Conc 35.2 g/dL (32-36); Mean Corpuscular Volume 90.9 fL (80-100); Mean Platelet Volume 9.5 fL (7.4-10.4); Platelet Count 123 K/uL (130-400); RDW Coefficient of Variation 14.9 % (11.5-14.5); RDW Standard Deviation 49.5 fL (36.4-46.3); White Blood Count 4.33 K/uL (4.8-10.8)
[2021-06-09 04:34] LABS: Partial Thromboplastin Ratio 2.4
[2021-06-09 04:35] LABS: BUN Creatinine Ratio 57.9 (10-20); Calcium 9.2 mg/dl (8.5-10.1); Est GFR (African American) 141.6 ml/min; Est GFR (Non-African American) 122.2 ml/min; Partial Thromboplastin Time 64.3 Seconds (21.0-31.0); Potassium 5.3 mmol/L (3.5-5.1)
[2021-06-09 05:01] LABS: Carbamazepine Tegretol 11.4 mcg/ml (4-12)
[2021-06-09] MEDS: VALPROIC ACID 50 MG/ML UDP PO SCH ×2 (08:23→22:47)
[2021-06-09] MEDS: DOCUSATE SODIUM SYRUP 100 MG/10 ML UDC PO SCH (08:23)
[2021-06-09] MEDS: OXYBUTYNIN CHLORIDE XL 5 MG TABCR PO PRN (08:24)
[2021-06-09] MEDS: PANTOprazole 40 MG TAB PO SCH (08:24)
[2021-06-09] MEDS: MAGNESIUM OXIDE 400 MG TAB PO SCH (08:24)
[2021-06-09] MEDS: METOPROLOL TARTRATE 25 MG TAB PO SCH ×2 (08:24→21:32)
[2021-06-09] MEDS: MULTIVITAMIN TAB PO SCH (08:24)
[2021-06-09] MEDS: lamoTRIgine 100 MG TAB PO SCH ×2 (08:24→16:59)
[2021-06-09] MEDS: carBAMazepine 100 MG CHEW TAB PO SCH ×2 (08:25→16:58)
[2021-06-09] MEDS: SODIUM CHLORIDE 1 GM TABLET PO SCH ×2 (08:25→21:31)
[2021-06-09] MEDS: diazePAM 5 MG TABLET PO SCH ×2 (08:30→16:58)
[2021-06-09] MEDS: guaiFENesin 600 MG TABCR PO SCH ×2 (08:30→16:59)
--- NOTE | 2021-06-09 09:29 | Cardiology Progress Note ---
Date of Service June 09, 2021 Assessment & Plan (1) Afib: (2) Infectious encephalopathy: (3) Paraplegia: Plan: The patient on telemetry has had no additional atrial fibrillation. She has a large hematoma of her right arm due to a blood draw and heparin. At this point I would continue the heparin through today and reevaluate tomorrow. If she has no additional atrial arrhythmias I think it is reasonable to stop the anticoagulation and not pursue long-term anticoagulation after discharge. Continue metoprolol at its current dose. Admission and Anticipated Discharge Date Admission Date: June 05, 2021 Subjective The patient is more alert today. No new cardiac problems through the night. Review of Systems Review of Systems: Review of Systems: See HPI for pertinent positives. All other 10 point review of systems are negative. Physical Exam Physical Exam: General: More alert today Head: normocephalic, no masses, lesions, tenderness or abnormalities Eyes: conjunctiva are pink and non-injected, sclera clear Neck: Tracheostomy in place Chest: normal shape and normal respiratory effort Lungs: clear to auscultation and percussion Cardiac Exam: - regular rate & rhythm, no murmurs gallops or rubs - normal S1, normal S2 Pulses: 2(+) throughout Abdomen: abdomen soft, non-tender, no abnormal masses and no hepatosplenomegaly Musculoskeletal: no gait disturbance, no joint inflammation, no deforming arthritis Extremities: no edema and no cyanosis Neuro: grossly normal exam Results & Data ([facility]) Vital Signs (Past 12 Hours) Vital Signs Temp Pulse Pulse Resp BP BP Pulse Ox 06/09/21 07:30 36.5 C 62 17 134/69 98 06/09/21 04:53 36.9 C 61 18 114/67 94 06/09/21 04:01 53 L 06/09/21 00:00 06/08/21 23:48 36.8 C 57 L 16 103/60 94 Pulse Ox 06/09/21 07:30 06/09/21 04:53 06/09/21 04:01 06/09/21 00:00 96 06/08/21 23:48 Laboratory Results Laboratory Results - last 24 hr 06/08/21 06/08/21 06/09/21 12:11 19:51 04:02 WBC 4.33 L RBC 3.50 L Hgb 11.2 L Hct 31.8 L MCV 90.9 MCH 32.0 MCHC 35.2 RDW Std Deviation 49.5 H RDW Coeff of Nazanin 14.9 H Plt Count 123 L MPV 9.5 APTT 69.1 H* 61.5 H* PTT Ratio 2.6 2.3 Sodium Potassium Chloride Carbon Dioxide Anion Gap BUN Creatinine Est Cr Clr Drug Dosing Est GFR ( Amer) Est GFR (Non-Af Amer) BUN/Creatinine Ratio Glucose Calcium Valproic Acid Carbamazepine 06/09/21 06/09/21 06/09/21 04:02 04:02 04:02 WBC RBC Hgb Hct MCV MCH MCHC RDW Std Deviation RDW Coeff of Nazanin Plt Count MPV APTT 64.3 H* PTT Ratio 2.4 Sodium 131 L Potassium 5.3 H D Chloride 98 Carbon Dioxide 31 Anion Gap 2.0 L BUN 24 H D Creatinine 0.41 L Est Cr Clr Drug Dosing 166.0 Est GFR ( Amer) 141.6 Est GFR (Non-Af Amer) 122.2 BUN/Creatinine Ratio 57.9 H Glucose 89 Calcium 9.2 Valproic Acid 40 L Carbamazepine 11.4 Medications Administered Current Inpatient Medications Acetaminophen (Acetaminophen 325 Mg Tab) 650 mg PEG Q4H PRN PRN Reason: Pain or Fever Stop: 07/05/21 21:20 Carbamazepine (Carbamazepine 100 Mg Chew Tab) 300 mg PO [facility] Stop: 07/08/21 08:59 Last Admin: 06/09/21 08:25 Dose: 300 mg Documented by: Carbamazepine (Carbamazepine 200 Mg Tablet) 400 mg PO 1700 [facility] Stop: 07/08/21 16:59 Last Admin: 06/08/21 17:13 Dose: 400 mg Documented by: Diazepam (Diazepam 5 Mg Tablet) 5 mg PO BID@0900,1700 [facility]; Protocol Stop: 07/06/21 16:59 Last Admin: 06/09/21 08:30 Dose: 5 mg Documented by: Docusate Sodium (Docusate Sodium Syrup 100 Mg/10 Ml Udc) 100 mg PO [facility] Stop: 07/06/21 08:59 Last Admin: 06/09/21 08:23 Dose: 100 mg Documented by: Enoxaparin Sodium (Enoxaparin Inj 40 Mg/0.4 Ml Syr) 40 mg SQ [facility] Stop: 07/06/21 08:59 Last Admin: 06/06/21 08:03 Dose: 40 mg Documented by: Guaifenesin (Guaifenesin 600 Mg Tabcr) 600 mg PO BID@0900,1700 [facility]; Protocol Stop: 07/06/21 16:59 Last Admin: 06/09/21 08:30 Dose: 600 mg Documented by: Lorazepam (Ativan) 2 mg in 4 mls @ 4 mls/min IV Q4H PRN PRN Reason: seizure Stop: 07/05/21 21:20 Ampicillin Sodium 1,000 mg/ (Sodium Chloride) 50 mls @ 100 mls/hr IV Q6H [facility] Stop: 06/15/21 21:59 Last Infusion: 06/09/21 09:01 Dose: Infused Documented by: Heparin Sodium/Dextrose (Heparin Sodium/Dextrose) 25,000 units in 500 mls @ 17 mls/hr IV .Q24H [facility]; Protocol Stop: 07/07/21 04:10 Last Titration: 06/08/21 12:53 Dose: 850 units/hr, 17 mls/hr Documented by: Gentamicin Sulfate 312 mg/ (Dextrose) 107.8 mls @ 107.8 mls/hr IV Q24H [facility] Stop: 06/15/21 14:59 Last Infusion: 06/08/21 16:54 Dose: Infused Documented by: Ketorolac Tromethamine (Ketorolac Tromethamine 15 Mg/Ml Vial) 15 mg IV Q6H PRN PRN Reason: Pain Stop: 06/13/21 11:46 Last Admin: 06/08/21 15:04 Dose: 15 mg Documented by: Lamotrigine (Lamotrigine 100 Mg Tab) 100 mg PO BID@0900,1700 [facility]; Protocol Stop: 07/06/21 16:59 Last Admin: 06/09/21 08:24 Dose: 100 mg Documented by: Levalbuterol HCl (Levalbuterol Hcl 0.63 Mg/3 Ml Neb) 0.63 mg INH Q8 PRN PRN Reason: Wheezing Stop: 07/05/21 21:20 Levothyroxine Sodium (Levothyroxine Sodium 175 Mcg Tablet) 175 mcg PEG DAILY@2100 [facility] Stop: 07/05/21 21:20 Last Admin: 06/08/21 20:44 Dose: 175 mcg Documented by: Magnesium Oxide (Magnesium Oxide 400 Mg Tab) 400 mg PO DAILY@0730 [facility] Stop: 07/07/21 07:29 Last Admin: 06/09/21 08:24 Dose: 400 mg Documented by: Metoprolol Tartrate (Metoprolol Tartrate 25 Mg Tab) 25 mg PO BID [facility] Stop: 07/08/21 20:59 Last Admin: 06/09/21 08:24 Dose: 25 mg Documented by: Miscellaneous Information (Gentamicin Consult Active) 1 ea N/A UD PRN PRN Reason: Consult Stop: 07/06/21 13:46 Multivitamins (Multivitamin Tab) 1 tab PO QAM [facility] Stop: 07/06/21 08:59 Last Admin: 06/09/21 08:24 Dose: 1 tab Documented by: Ondansetron HCl (Ondansetron Inj 2 Mg/Ml 2 Ml Vial) 4 mg IV Q6H PRN PRN Reason: Nausea Stop: 07/05/21 21:20 Oxybutynin Chloride (Oxybutynin Chloride Xl 5 Mg Tabcr) 10 mg PO DAILY PRN PRN Reason: Catheter change/Bladder Spasm Stop: 07/05/21 21:20 Last Admin: 06/09/21 08:24 Dose: 10 mg Documented by: Pantoprazole Sodium (Pantoprazole 40 Mg Tab) 40 mg PO DAILY [facility] Stop: 07/06/21 08:59 Last Admin: 06/09/21 08:24 Dose: 40 mg Documented by: Sodium Chloride (Sodium Chloride 1 Gm Tablet) 1 gm PO BID [facility] Stop: 07/07/21 08:59 Last Admin: 06/09/21 08:25 Dose: 1 gm Documented by: Valproic Acid (Valproic Acid 50 Mg/Ml Udp) 625 mg PO BID [facility] Stop: 07/05/21 21:20 Last Admin: 06/09/21 08:23 Dose: 625 mg Documented by:
[2021-06-09] MEDS ORDERED: VALPROIC ACID SOLN 500 MG/10 ML UDC PO ONE (10:46)
[2021-06-09] MEDS: HEPARIN SODIUM/DEXTROSE 25,000 UNITS/500 ML BAG IV SCH (11:30)
[2021-06-09] MEDS: GENTAMICIN SULFATE IV SCH (14:18)
[2021-06-09] MEDS: DEXTROSE 5% IV SCH (14:18)
--- NOTE | 2021-06-09 16:44 | Hospitalist Progress Note ---
Date of Service June 09, 2021 Assessment & Plan (1) Infectious encephalopathy: Plan: Patient now considered to have metabolic encephalopathy from multifocal pneumonia likely concern for aspiration pneumonia. 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 There was some concern that the Invanz was creating issues with her seizure medications. Subsequently to the ltifocal pneumonia will complete a 7-day course and reassess (2) Afib: Plan: A. fib likely spurred upon her metabolic stressors of the multifocal pneumonia. Continues on metoprolol. Heparin discontinued and no plans on following long- term anticoagulation after discussion with cardiology. Patient is known to have previously had a [place] filter in place which was not removed (3) Acute hyponatremia: Plan: Patient remains with hyponatremia near normal range (4) Tegretol toxicity: Plan: Patient Tegretol toxicity now returning to dose to 3 mg a day level is 11 continue to check levels to make sure it stays at that range. Reportedly her mother states it works best with near the upper end of the therapeutic window (5) Generalized epilepsy: Plan: Valproic acid and carbamazepine or use valproic acid remains low was augmented on 06/09 (6) Mental retardation: Plan: Patient with functional quadriplegia (7) Tracheostomy tube present: (8) Moderate malnutrition: Plan: There has been some persistent concern of aspiration with the mother certainly her multifocal pneumonia could be based upon chronic aspiration. Patient is going to have some augmentation of her nutrition based upon enteral feedings via her PEG tube and being allowed pleasure eating (9) Pulmonary edema: Plan: This was seen on presentation she did receive a dose of Lasix however her echocardiogram supports the fact that she was not in congestive heart failure but we may have been seeing aspiration pneumonitis (10) DVT prophylaxis: Plan: Patient now off therapeutic heparin will revert back to subcu heparin Admission and Anticipated Discharge Date Admission Date: June 05, 2021 Subjective Patient is much more awake and alert today yesterday her CT angiogram can suggest a multifocal pneumonia. Patient sustained an intramuscular hematoma from heparin infusion heparin was subsequently discontinued today as she is now in sinus rhythm and her CHADS2 score is low. Her valproic acid remains low but carbamazepine is appropriate Review of Systems Review of Systems: Unobtainable due to cognitive status Physical Exam Physical Exam: The patient appeared well nourished and normally developed. Is more awake and alert tracking with her eyes Vital signs as documented. Head exam is normocephalic atraumatic Neck is without JVD, ostomy is in place Lungs are coarse and diminished due to her physical body positioning and just low tidal volumes Cardiac exam, Rhythm is regular.. No murmurs, rubs or gallops. Oscar in sinus rhythm on the monitor Abdominal exam reveals normal bowel sounds, soft non tender, no masses PEG tube is in place Extremities are nonedematous and both pedal pulses are present Neurologic exam is alert and smiles and responds to questions is functionally paraplegic Skin is without bruises or rashes Psychologically is without concerns for anxiety or depression Results & Data Results & Data ([facility]) Vital Signs (Past 12 Hours) Vital Signs Temp Pulse Pulse Resp BP Pulse Ox 06/09/21 15:58 97.7 F 73 17 117/75 96 06/09/21 11:15 97.5 F L 71 20 112/58 L 96 06/09/21 08:00 59 L 06/09/21 07:30 97.7 F 62 17 134/69 98 06/09/21 04:53 98.4 F 61 18 114/67 94 PG Care Time/CCT Total # of Minutes Spent Total Time Spent with Patient: Total time spent is greater than 50% in coordination of care (as documented) at patient's floor/unit and/or counseling patient: Coding Level of Care Code 06475 Subseq Hosp Care Lvl 3 Diagnoses Infectious encephalopathy G93.49; B99.9 Afib I48.91 Acute hyponatremia E87.1 Tegretol toxicity T42.1X1A Generalized epilepsy G40.309 Mental retardation F79 Tracheostomy tube present Z93.0 Moderate malnutrition E44.0 Pulmonary edema J81.0 Chronicity: acute DVT prophylaxis Z29.9 (1) Pulmonary edema Chronicity: acute Qualified Code(s): J81.0 - Acute pulmonary edema
[2021-06-09] MEDS: KETOROLAC TROMETHAMINE 15 MG/ML VIAL IV PRN (18:00)
--- NOTE | 2021-06-09 19:40 | Progress Notes ---
DATE OF SERVICE: 06/09/2021 SUBJECTIVE: I am seeing Nikia in followup of anticonvulsant toxicity related to elevated Tegretol l evel and worsening hyponatremia. Having stopped the interacting antibiotics, her Tegretol level is now essentially back to baseline and her Depakote level is rising. The Depakote level today was 40, Tegretol 11.4 and serum sodium 131. The patient has not had any seizures overnight and has been more awake and alert. She did not have a ny atrial fibrillation over the last 36 hours. OBJECTIVE: VITAL SIGNS: 117/75, ____, 17, 36.5, O2 sat 96%. NEUROLOGICAL: The patient is awake and alert. Eye movements are conjugate, roving, and purposeful. The patient is drinking out of a cup, which she holds with her left hand. IMPRESSION AND PLAN: Resolved anticonvulsant toxicity. Prehospital doses of anticonvulsants have be en resumed. I assume that Depakote level will rise. I would recommend that the patient have followu p Depakote, Tegretol and Lamictal level and serum sodium 2 weeks after discharge with the results to go to Dr. Liu. We will sign off at present. Please reconsult if there are any concerns or issues . Job ID: [id number]
[2021-06-09] MEDS: LEVOTHYROXINE SODIUM 175 MCG TABLET PEG SCH (21:31)
[2021-06-09] MEDS: HEPARIN SOD 5,000 UNIT/0.5 ML VIAL SQ SCH (21:32)
[2021-06-10] MEDS: AMPICILLIN 1,000 MG in SODIUM CHLOR 0.9% AD-VAN 50 ML IV SCH ×3 (03:25→15:59)
[2021-06-10 06:02] LABS: Hematocrit (blood only) 30.9 % (37-47); Hemoglobin 10.7 g/dL (12.0-16.0); Mean Corpuscular Hemoglobin 32.4 pg (25-34); Mean Corpuscular Hgb Conc 34.6 g/dL (32-36); Mean Corpuscular Volume 93.6 fL (80-100); Mean Platelet Volume 8.9 fL (7.4-10.4); Platelet Count 130 K/uL (130-400); RDW Coefficient of Variation 14.6 % (11.5-14.5); White Blood Count 4.75 K/uL (4.8-10.8)
[2021-06-10 06:22] LABS: BUN Creatinine Ratio 64.5 (10-20); Calcium 9.2 mg/dl (8.5-10.1); Creatinine Clr Calc Pharmacy 169.7 ml/min; Est GFR (African American) 142.8 ml/min; Est GFR (Non-African American) 123.2 ml/min; Potassium 4.9 mmol/L (3.5-5.1)
[2021-06-10] MEDS: DOCUSATE SODIUM SYRUP 100 MG/10 ML UDC PO SCH (08:28)
[2021-06-10] MEDS: carBAMazepine 100 MG CHEW TAB PO SCH ×2 (08:28→17:33)
[2021-06-10] MEDS: MULTIVITAMIN TAB PO SCH (08:29)
[2021-06-10] MEDS: OXYBUTYNIN CHLORIDE XL 5 MG TABCR PO PRN (08:29)
[2021-06-10] MEDS: PANTOprazole 40 MG TAB PO SCH (08:29)
[2021-06-10] MEDS: MAGNESIUM OXIDE 400 MG TAB PO SCH (08:29)
[2021-06-10] MEDS: guaiFENesin 600 MG TABCR PO SCH ×2 (08:29→17:33)
[2021-06-10] MEDS: HEPARIN SOD 5,000 UNIT/0.5 ML VIAL SQ SCH (08:30)
[2021-06-10] MEDS: lamoTRIgine 100 MG TAB PO SCH ×2 (08:30→17:33)
[2021-06-10] MEDS: SODIUM CHLORIDE 1 GM TABLET PO SCH ×2 (08:32→22:06)
[2021-06-10] MEDS: VALPROIC ACID 50 MG/ML UDP PO SCH ×3 (08:32→22:25)
[2021-06-10] MEDS ORDERED: METOPROLOL TARTRATE 1 MG/ML VIAL IV STA (08:54)
[2021-06-10] MEDS ORDERED: METOPROLOL TARTRATE 1 MG/ML VIAL IV ONE (09:00)
[2021-06-10] MEDS: diazePAM 5 MG TABLET PO SCH ×2 (09:10→17:38)
[2021-06-10] MEDS: METOPROLOL TARTRATE 25 MG TAB PO SCH ×2 (09:13→22:06)
[2021-06-10] MEDS ORDERED: VALPROIC ACID SOLN 500 MG/10 ML UDC PO ONE (12:00)
[2021-06-10] MEDS ORDERED: 0.2 MICRON FILTER SET 1 EA IV ONE (12:07)
[2021-06-10] MEDS ORDERED: AMIODARONE IV BOLUS & DRIP IV STA (12:07)
[2021-06-10] MEDS ORDERED: STAT IV Infusion **Titration per Protocol STA (12:07)
--- NOTE | 2021-06-10 12:13 | Cardiology Progress Note ---
Date of Service June 10, 2021 Assessment & Plan (1) Afib: (2) Infectious encephalopathy: (3) Paraplegia: Plan: The patient is in a sustained atrial fibrillation with RVR. I believe an antiarrhythmic medication is indicated along with additional anticoagulation. Ya hernandez to start her on amiodarone. The patient is on Tegretol dosing considerations once she is on maintenance will have to be considered. Anticoagulation is also a problem. In the past she has been on warfarin but the Tegretol has made it difficult to manage her INR. Eliquis is contraindicated due to the Tegretol. So we will start her on warfarin. Until she is therapeutic she will receive subcu Lovenox. Admission and Anticipated Discharge Date Admission Date: June 05, 2021 Subjective The patient is alert and eating lunch. Review of Systems Review of Systems: Review of Systems: See HPI for pertinent positives. All other 10 point review of systems are negative. Physical Exam Physical Exam: General: no acute distress Head: normocephalic, no masses, lesions, tenderness or abnormalities Eyes: conjunctiva are pink and non-injected, sclera clear Neck: Tracheostomy in place Chest: normal shape and normal respiratory effort Lungs: clear to auscultation and percussion Cardiac Exam: - regular rate & rhythm, no murmurs gallops or rubs - normal S1, normal S2 Pulses: 2(+) throughout Abdomen: abdomen soft, non-tender, no abnormal masses and no hepatosplenomegaly Musculoskeletal: no gait disturbance, no joint inflammation, no deforming arthritis Extremities: Contractures due to paraplegia Neuro: grossly normal exam Results & Data ([facility]) Vital Signs (Past 12 Hours) Vital Signs Temp Pulse Pulse Resp BP BP BP 06/10/21 09:08 101 H 110/74 06/10/21 08:00 36.6 C 63 18 115/68 06/10/21 04:47 36.8 C 65 18 112/64 06/10/21 00:38 37.0 C 57 L 16 103/60 Pulse Ox 06/10/21 09:08 06/10/21 08:00 06/10/21 04:47 98 06/10/21 00:38 99 Laboratory Results Laboratory Results - last 24 hr 06/09/21 06/10/21 06/10/21 23:01 05:50 05:50 WBC 4.75 L RBC 3.30 L Hgb 10.7 L Hct 30.9 L MCV 93.6 MCH 32.4 MCHC 34.6 RDW Std Deviation 50.0 H RDW Coeff of Nazanin 14.6 H Plt Count 130 MPV 8.9 Sodium 130 L Potassium 4.9 Chloride 98 Carbon Dioxide 29 Anion Gap 3.0 BUN 26 H Creatinine 0.40 L Est Cr Clr Drug Dosing 169.7 Est GFR ( Amer) 142.8 Est GFR (Non-Af Amer) 123.2 BUN/Creatinine Ratio 64.5 H Glucose 83 Calcium 9.2 Random Gentamicin 6.50 Valproic Acid Carbamazepine 06/10/21 05:50 WBC RBC Hgb Hct MCV MCH MCHC RDW Std Deviation RDW Coeff of Nazanin Plt Count MPV Sodium Potassium Chloride Carbon Dioxide Anion Gap BUN Creatinine Est Cr Clr Drug Dosing Est GFR ( Amer) Est GFR (Non-Af Amer) BUN/Creatinine Ratio Glucose Calcium Random Gentamicin Valproic Acid 46 L Carbamazepine 12.0 Medications Administered Current Inpatient Medications Acetaminophen (Acetaminophen 325 Mg Tab) 650 mg PEG Q4H PRN PRN Reason: Pain or Fever Stop: 07/05/21 21:20 Amiodarone HCl (Amiodarone Iv Bolus & Drip) 1 ea IV NOW STA; Protocol Stop: 06/10/21 12:08 Apixaban (Apixaban 2.5 Mg Tab) 2.5 mg PO BID [facility] Stop: 07/10/21 12:14 Carbamazepine (Carbamazepine 100 Mg Chew Tab) 300 mg PO QAM [facility] Stop: 07/08/21 08:59 Last Admin: 06/10/21 08:28 Dose: 300 mg Documented by: Carbamazepine (Carbamazepine 100 Mg Chew Tab) 300 mg PO 1700 [facility] Stop: 07/09/21 16:59 Last Admin: 06/09/21 16:58 Dose: 300 mg Documented by: Diazepam (Diazepam 5 Mg Tablet) 5 mg PO BID@0900,1700 [facility]; Protocol Stop: 07/06/21 16:59 Last Admin: 06/10/21 09:10 Dose: 5 mg Documented by: Docusate Sodium (Docusate Sodium Syrup 100 Mg/10 Ml Udc) 100 mg PO QAM [facility] Stop: 07/06/21 08:59 Last Admin: 06/10/21 08:28 Dose: 100 mg Documented by: Guaifenesin (Guaifenesin 600 Mg Tabcr) 600 mg PO BID@0900,1700 [facility]; Protocol Stop: 07/06/21 16:59 Last Admin: 06/10/21 08:29 Dose: 600 mg Documented by: Lorazepam (Ativan) 2 mg in 4 mls @ 4 mls/min IV Q4H PRN PRN Reason: seizure Stop: 07/05/21 21:20 Ampicillin Sodium 1,000 mg/ (Sodium Chloride) 50 mls @ 100 mls/hr IV Q6H [facility] Stop: 06/15/21 21:59 Last Infusion: 06/10/21 10:01 Dose: Infused Documented by: Gentamicin Sulfate 312 mg/ (Dextrose) 107.8 mls @ 107.8 mls/hr IV Q36H [facility] Stop: 06/15/21 14:59 N/A (0.2 Micron Filter Set 17" W/Clave,Non-Dehp) 0 mls @ 0.333 mls/hr IV ONE ONE Stop: 06/10/21 12:08 Amiodarone HCl/Dextrose (Nexterone / D5w) 150 mg in 100 mls @ 600 mls/hr IV NOW STA Stop: 06/10/21 12:16 Amiodarone HCl/Dextrose (Nexterone / D5w) 360 mg in 200 mls @ 33.333 mls/hr IV ONE ONE Stop: 06/10/21 18:06 Amiodarone HCl/Dextrose (Nexterone / D5w) 360 mg in 200 mls @ 16.667 mls/hr IV .Q12H [facility] Stop: 07/10/21 18:14 Ketorolac Tromethamine (Ketorolac Tromethamine 15 Mg/Ml Vial) 15 mg IV Q6H PRN PRN Reason: Pain Stop: 06/13/21 11:46 Last Admin: 06/09/21 18:00 Dose: 15 mg Documented by: Lamotrigine (Lamotrigine 100 Mg Tab) 100 mg PO BID@0900,1700 [facility]; Protocol Stop: 07/06/21 16:59 Last Admin: 06/10/21 08:30 Dose: 100 mg Documented by: Levalbuterol HCl (Levalbuterol Hcl 0.63 Mg/3 Ml Neb) 0.63 mg INH Q8 PRN PRN Reason: Wheezing Stop: 07/05/21 21:20 Levothyroxine Sodium (Levothyroxine Sodium 175 Mcg Tablet) 175 mcg PEG DAILY@2100 [facility] Stop: 07/05/21 21:20 Last Admin: 06/09/21 21:31 Dose: 175 mcg Documented by: Magnesium Oxide (Magnesium Oxide 400 Mg Tab) 400 mg PO DAILY@0730 [facility] Stop: 07/07/21 07:29 Last Admin: 06/10/21 08:29 Dose: 400 mg Documented by: Metoprolol Tartrate (Metoprolol Tartrate 25 Mg Tab) 25 mg PO BID [facility] Stop: 07/08/21 20:59 Last Admin: 06/10/21 09:13 Dose: 25 mg Documented by: Miscellaneous (Stat Iv Infusion Titration Per Protocol) 1 ea N/A NOW STA Stop: 06/10/21 12:08 Miscellaneous Information (Gentamicin Consult Active) 1 ea N/A UD PRN PRN Reason: Consult Stop: 07/06/21 13:46 Multivitamins (Multivitamin Tab) 1 tab PO QAM [facility] Stop: 07/06/21 08:59 Last Admin: 06/10/21 08:29 Dose: 1 tab Documented by: Ondansetron HCl (Ondansetron Inj 2 Mg/Ml 2 Ml Vial) 4 mg IV Q6H PRN PRN Reason: Nausea Stop: 07/05/21 21:20 Oxybutynin Chloride (Oxybutynin Chloride Xl 5 Mg Tabcr) 10 mg PO DAILY PRN PRN Reason: Catheter change/Bladder Spasm Stop: 07/05/21 21:20 Last Admin: 06/10/21 08:29 Dose: 10 mg Documented by: Pantoprazole Sodium (Pantoprazole 40 Mg Tab) 40 mg PO DAILY [facility] Stop: 07/06/21 08:59 Last Admin: 06/10/21 08:29 Dose: 40 mg Documented by: Sodium Chloride (Sodium Chloride 1 Gm Tablet) 1 gm PO BID [facility] Stop: 07/07/21 08:59 Last Admin: 06/10/21 08:32 Dose: 1 gm Documented by: Valproic Acid (Valproic Acid 50 Mg/Ml Udp) 625 mg PO BID [facility] Stop: 07/05/21 21:20 Last Admin: 06/10/21 08:32 Dose: 625 mg Documented by:
[2021-06-10] MEDS ORDERED: AMIODARONE / D5W 150 MG/100 ML BAG IV STA (12:15)
[2021-06-10] MEDS ORDERED: APIXABAN 2.5 MG TAB PO SCH (12:15)
[2021-06-10] MEDS ORDERED: AMIODARONE / D5W 360 MG/200 ML BAG IV ONE (12:25)
--- NOTE | 2021-06-10 13:01 | Pharmacy Report ---
Pharmacy Abx Dose Short Note - Date of Service June 10, 2021 - Assessment & Plan Assessment * 50 year old F receiving GENTAMICIN + AMPICILLIN for treatment of complicated UTI. Pharmacy to dose GENTAMICIN * Day #5 of antimicrobial therapy. * Urine cx grew ESBL klebsiella pn * Had been receiving ertapenem therapy for ESBL kleb coverage however due to significant interaction with valproic acid, therapy will be changed to gent IV based upon prior sensitivities * Renal fxn difficult to assess given body habitus and low muscle mass. SCr unchanged in last 24 hrs Plan Gentamicin * Has been receiving 312mg (~5mg/kg adj BW) Q 24 hrs * Random gent level drawn ~9 hrs after start of infusion yesterday = 6.5mcg/mL * Level indicates patient should be changed to Q 36 hr extended interval dosing per [place] Nomogram * Will change to 312mg IV Q 36 hrs Pharmacy will continue to follow and will adjust dose/frequency as necessary. Thank you.
[2021-06-10] MEDS ORDERED: ENOXAPARIN 1 MG/KG SQ SCH (13:30)
[2021-06-10] MEDS: ENOXAPARIN 100 MG/1ML SYR SQ SCH (15:19)
[2021-06-10] MEDS: WARFARIN SOD 10 MG TAB PO SCH (15:59)
[2021-06-10] MEDS: AMIODARONE / D5W 360 MG/200 ML BAG IV SCH (18:46)
[2021-06-10] MEDS ORDERED: VANCOMYCIN CONSULT ACTIVE PRN (19:22)
--- NOTE | 2021-06-10 19:30 | Hospitalist Progress Note ---
Date of Service June 10, 2021 Assessment & Plan (1) Infectious encephalopathy: Plan: Patient now considered to have metabolic encephalopathy from multifocal pneumonia likely concern for aspiration pneumonia. Her initial antibiotic choice was tailored to a Enterococcus in her urine and a ESBL Klebsiella. There was some concern that the Invanz was creating issues with her seizure medications. Her urine did grow 20,000 colonies of ESBL Klebsiella but no Enterococcus. Subsequently to the multifocal pneumonia we are going to change her antibiotics to cover both MRSA of which she has a nasal swab positive and atypicals with azithromycin and vancomycin. Because these antibiotics may affect her Tegretol level and her level is at the upper lip and of normal we will skip a Tegretol level tonight reduce her dose to 250 twice daily. (2) Afib: Plan: A. fib likely spurred upon her metabolic stressors of the multifocal pneumonia. Continues on metoprolol. Heparin discontinued and no plans on following long- term anticoagulation after discussion with cardiology. Patient is known to have previously had a Leeroy filter in place which was not removed. Amiodarone and warfarin were started by cardiology for atrial fibrillation. (3) Acute hyponatremia: Plan: Patient remains with hyponatremia near normal range (4) Tegretol toxicity: Plan: Patient Tegretol toxicity now returning to dose to continue to check levels to make sure it stays at that range. Reportedly her mother states it works best with near the upper end of the therapeutic window (5) Generalized epilepsy: Plan: Valproic acid and carbamazepine or use valproic acid remains low was augmented on 06/09 (6) Mental retardation: Plan: Patient with functional quadriplegia (7) Tracheostomy tube present: (8) Moderate malnutrition: Plan: There has been some persistent concern of aspiration with the mother certainly her multifocal pneumonia could be based upon chronic aspiration. Patient is going to have some augmentation of her nutrition based upon nocturnal enteral feedings via her PEG tube and being allowed pleasure eating (9) Pulmonary edema: Plan: This was seen on presentation she did receive a dose of Lasix however her echocardiogram supports the fact that she was not in congestive heart failure but we may have been seeing aspiration pneumonitis (10) DVT prophylaxis: Plan: Patient now off therapeutic heparin will revert back to subcu heparin Admission and Anticipated Discharge Date Admission Date: June 05, 2021 Subjective The patient is alert and eating lunch. She remains had intermittent issues with atrial fibrillation which is a new diagnosis for her and my concerns as a physiological irritant is causing her atrial fibrillation to occur. She does have multifocal pneumonia and has not been covered for atypicals nor MRSA she does have MRSA nasal swab is positive. We will make appropriate antibiotic changes so I cardiology is helping with oversight with her atrial fibrillation Review of Systems Review of Systems: Unable to obtain review of systems due to the patient not being able to speak she appears comfortable she is sleepy during the exam she is not having increased coughing or choking although she is an aspiration risk Physical Exam Physical Exam: The patient appeared well nourished and normally developed. Remains more awake and alert tracking with her eyes Vital signs as documented. Head exam is normocephalic atraumatic Neck is without JVD, ostomy is in place Lungs remain coarse and diminished due to her physical body positioning and just low tidal volumes Cardiac exam, Rhythm is regular.. No murmurs, rubs or gallops. Oscar in sinus rhythm on the monitor Abdominal exam reveals normal bowel sounds, soft non tender, no masses PEG tube is in place Extremities are nonedematous and both pedal pulses are present Neurologic exam is alert and smiles and responds to questions is functionally paraplegic Skin is without bruises or rashes Psychologically is without concerns for anxiety or depression Results & Data Results & Data ([facility]) Vital Signs (Past 12 Hours) Vital Signs Temp Pulse Pulse Resp BP BP Pulse Ox 06/10/21 16:00 98.6 F 84 20 101/56 L 98 06/10/21 11:00 98.2 F 100 H 20 120/68 98 06/10/21 09:08 101 H 110/74 06/10/21 08:00 97.9 F 63 18 115/68 PG Care Time/CCT Total # of Minutes Spent Total Time Spent with Patient: Total time spent is greater than 50% in coordination of care (as documented) at patient's floor/unit and/or counseling patient: Coding Level of Care Code 47296 Subseq Hosp Care Lvl 3 Diagnoses Infectious encephalopathy G93.49; B99.9 Afib I48.91 Acute hyponatremia E87.1 Tegretol toxicity T42.1X1A Generalized epilepsy G40.309 Mental retardation F79 Tracheostomy tube present Z93.0 Moderate malnutrition E44.0 Pulmonary edema J81.0 Chronicity: acute DVT prophylaxis Z29.9 (1) Pulmonary edema Chronicity: acute Qualified Code(s): J81.0 - Acute pulmonary edema
[2021-06-10] MEDS ORDERED: AZITHROMYCIN 500 MG in DEXTROSE 5% 250 ML IV ONE (20:00)
[2021-06-10] MEDS: PEPTAMEN 1.5 CAL 1,000 ML BAG PEG SCH (20:06)
--- NOTE | 2021-06-10 20:44 | Pharmacy Report ---
Pharmacy Abx Initial Consult - Date of Service June 10, 2021 - Pharmacy Dosing Scope Date of Consult: 06/10/21 Consultation requested by: Dr. Cho Pharmacy is consulted to initiate Vancomycin IV dosing therapy, order appropriate labs and adjust drug dose/frequency. - Subjective The patient is a 50 year old F admitted on 06/05/21 18:51. - Objective Height: 4 ft 10 in Weight: 94.5 kg Vital Signs (Past 12hrs): Vital Signs Temp Pulse Pulse Resp BP BP Pulse Ox 06/10/21 16:00 37.0 C 84 20 101/56 L 98 06/10/21 11:00 36.8 C 100 H 20 120/68 98 06/10/21 09:08 101 H 110/74 Lab Results (24hrs): Laboratory Tests (24 Hours) 06/10/21 06/10/21 06/09/21 05:50 05:50 23:01 WBC 4.75 L Creatinine 0.40 L Est Cr Clr Drug Dosing 169.7 Random Gentamicin 6.50 Micro Results: 06/05/21 14:15 Aerobic Blood Culture - Final Blood No growth in Aerobic bottle after 5 days. Anaerobic Blood Culture - Final No growth in Anaerobic bottle after 5 days. 06/05/21 13:25 Aerobic Blood Culture - Final Blood No growth in Aerobic bottle after 5 days. Anaerobic Blood Culture - Final No growth in Anaerobic bottle after 5 days. 06/08/21 Unknown Gram Stain - Final Sputum,Trach Sputum Culture - Final Light normal savanna. 06/05/21 17:50 Urine Culture - Final Urine,Straight Cath Klebsiella pneumoniae ESBL - Risk Factors for Resistance * Hospitalization for 48 hours or more within the past 90 days * Current hospitalization > 5 days * History of infection with a multidrug-resistant organism: Klebsiella ESBL urine this admission - Assessment & Plan Assessment 50 year old F with chronic trac, G-tube, suprapubic catheter and functional quadriplegia. Current receiving IV Gentamicin, IV Azithromycin. Ertepenem stopped due to increasing valpoic acid levels. This patient has received IV Vancomycin during past admissions and reduced clearance was noted compared to prediction models. Renal fxn difficult to assess given body habitus and low muscle mass. SCr unchanged in last 24 hrs. In addition, patient has potential to have additive renal toxicity with concurrent aminoglycoside/vancomycin thus will closely monitor drug clearance. Plan IV Vancomycin for treatment of possible MRSA Pneumonia Vancomycin IV * Will use Vancomycin AUC Plot Nomogram * Loading dose: 2250 mg (23.8 mg/kg) * Maintenance dose: 1000 mg IV (10.6 mg/kg) every 12 hours * Goal trough level for MRSA Pneumonia: 15 to 20 mcg/mL * Trough level ordered for Jun 13 prior to the noon dose * A less than traditional dose and/or extended dosing interval has/have been selected due to likelihood of drug accumulation in patient with h/o low muscle mass. Pharmacy will continue to follow and will adjust dose/frequency as necessary. Thank you.
[2021-06-10] MEDS: TUBE FEEDING WATER FLUSH PEG SCH ×2 (21:20→22:06)
[2021-06-10] MEDS ORDERED: VANCOMYCIN HCL 2,250 MG in SODIUM CHLORIDE 0.9% 500 ML IV SCH (22:00)
[2021-06-10] MEDS: LEVOTHYROXINE SODIUM 175 MCG TABLET PEG SCH (22:06)
[2021-06-11] MEDS: DEXTROSE 5% IV SCH (02:17)
[2021-06-11] MEDS: GENTAMICIN SULFATE IV SCH (02:17)
[2021-06-11] MEDS: ENOXAPARIN 100 MG/1ML SYR SQ SCH ×2 (02:18→14:39)
[2021-06-11] MEDS: TUBE FEEDING WATER FLUSH PEG SCH ×6 (02:19→21:57)
[2021-06-11] MEDS: AMIODARONE / D5W 360 MG/200 ML BAG IV SCH ×2 (06:29→15:37)
--- NOTE | 2021-06-11 07:27 | Hospitalist Progress Note ---
Date of Service June 11, 2021 Assessment & Plan (1) Infectious encephalopathy: Plan: Patient now considered to have metabolic encephalopathy from multifocal pneumonia likely concern for aspiration pneumonia. Her initial antibiotic choice was tailored to a Enterococcus in her urine and a ESBL Klebsiella. There was some concern that the Invanz was creating issues with her seizure medications. Her urine did grow 20,000 colonies of ESBL Klebsiella but no Enterococcus. Subsequently to the multifocal pneumonia we are going to change her antibiotics to cover both MRSA of which she has a nasal swab positive and atypicals with azithromycin and vancomycin and gentamicin. Because these antibiotics may affect her Tegretol level and her level is at the upper lip and of normal we will skip a Tegretol level tonight reduce her dose to 250 twice daily. repeat nasal swab was negative will stop vancomycin, will complete 7 days of total for Gentamicin and continue azithromycin, if The CXR tomorrow is worse will have Pulmonary input Adding Chest vest , pt uses at home, and xopenex (2) Afib: Plan: A. fib, now A Flutter, likely spurred upon her metabolic stressors of the multifocal pneumonia. Continues on metoprolol. Heparin discontinued and no plans on following long-term anticoagulation after discussion with cardiology. Patient is known to have previously had a Leeroy filter in place which was not removed. Amiodarone and warfarin were started by cardiology for atrial fibrillation/ Atrial Flutter . (3) Acute hyponatremia: Plan: Patient remains with hyponatremia near normal range (4) Tegretol toxicity: Plan: Patient Tegretol toxicity now returning to dose to continue to check levels to make sure it stays at that range. Reportedly her mother states it works best with near the upper end of the therapeutic window (5) Generalized epilepsy: Plan: Valproic acid and carbamazepine or use valproic acid remains low was augmented on 06/09 (6) Mental retardation: Plan: Patient with functional quadriplegia (7) Tracheostomy tube present: (8) Moderate malnutrition: Plan: There has been some persistent concern of aspiration with the mother certainly her multifocal pneumonia could be based upon chronic aspiration. Patient is going to have some augmentation of her nutrition based upon nocturnal enteral feedings via her PEG tube and being allowed pleasure eating (9) Pulmonary edema: Plan: This was seen on presentation she did receive a dose of Lasix however her echocardiogram supports the fact that she was not in congestive heart failure but we may have been seeing aspiration pneumonitis (10) DVT prophylaxis: Plan: Patient now off therapeutic heparin will revert back to subcu heparin Admission and Anticipated Discharge Date Admission Date: June 05, 2021 Subjective Patient's mother states the patient is more awake and alert today. However she is falling asleep during my visit. Patient continues to sound rhonchorous on examination. Mother is now states the patient uses her chest vest twice a day at home and we will order that today. Review of Systems Review of Systems: Unable to obtain review of systems due to the patient not being able to speak she appears comfortable she is sleepy during the exam she is not having increased coughing or choking although she is an aspiration risk Physical Exam Physical Exam: The patient appeared well nourished and normally developed. Re erika more awake and alert tracking with her eyes Vital signs as documented. Head exam is normocephalic atraumatic Neck is without JVD, ostomy is in place Lungs remain coarse and diminished due to her physical body positioning and just low tidal volumes Cardiac exam, patient on atrial flutter rate controlled rhythm Abdominal exam reveals normal bowel sounds, soft non tender, no masses PEG tube is in place Extremities are nonedematous and both pedal pulses are present Neurologic exam is alert and smiles and responds to questions is functionally paraplegic Skin is with large bruise to the right arm from previous heparin infusion Psychologically is without concerns for anxiety or depression Results & Data Results & Data ([facility]) Vital Signs (Past 12 Hours) Vital Signs Temp Pulse Resp BP BP Pulse Ox 06/11/21 04:00 99.1 F 93 H 18 125/82 94 06/11/21 00:43 98.2 F 122 H 19 93/79 L 97 06/10/21 20:48 97.9 F 87 19 95/76 L 95 PG Care Time/CCT Total # of Minutes Spent Total Time Spent with Patient: Total time spent is greater than 50% in coordination of care (as documented) at patient's floor/unit and/or counseling patient: Coding Level of Care Code 73353 Subseq Hosp Care Lvl 3 Diagnoses Infectious encephalopathy G93.49; B99.9 Afib I48.91 Acute hyponatremia E87.1 Tegretol toxicity T42.1X1A Generalized epilepsy G40.309 Mental retardation F79 Tracheostomy tube present Z93.0 Moderate malnutrition E44.0 Pulmonary edema J81.0 Chronicity: acute DVT prophylaxis Z29.9 (1) Pulmonary edema Chronicity: acute Qualified Code(s): J81.0 - Acute pulmonary edema
[2021-06-11 08:20] LABS: Hematocrit (blood only) 32.4 % (37-47); Hemoglobin 11.2 g/dL (12.0-16.0); Mean Corpuscular Hemoglobin 31.9 pg (25-34); Mean Corpuscular Hgb Conc 34.6 g/dL (32-36); Mean Corpuscular Volume 92.3 fL (80-100); Mean Platelet Volume 9.2 fL (7.4-10.4); Platelet Count 136 K/uL (130-400); RDW Coefficient of Variation 14.6 % (11.5-14.5); RDW Standard Deviation 49.9 fL (36.4-46.3); Red Blood Count 3.51 M/uL (4.2-5.4); White Blood Count 5.16 K/uL (4.8-10.8)
[2021-06-11 08:35] LABS: INR 1.2 (0.9-1.1); Prothrombin Time 11.8 Seconds (9.0-12.0)
[2021-06-11 08:51] LABS: BUN Creatinine Ratio 57.4 (10-20); Blood Urea Nitrogen 17 mg/dl (7-18); Calcium 8.8 mg/dl (8.5-10.1); Carbon Dioxide 28 mmol/L (21-32); Chloride 97 mmol/L (98-107); Creatinine Clr Calc Pharmacy 225.7 ml/min; Est GFR (African American) > 150.0 ml/min; Est GFR (Non-African American) 135.4 ml/min; Glucose 87 mg/dl (70-99); Potassium 4.4 mmol/L (3.5-5.1); Sodium 131 mmol/L (136-145)
[2021-06-11] MEDS: MAGNESIUM OXIDE 400 MG TAB PO SCH (09:11)
[2021-06-11] MEDS: carBAMazepine 100 MG CHEW TAB PO SCH (09:12)
[2021-06-11] MEDS: VALPROIC ACID 50 MG/ML UDP PO SCH ×2 (09:13→21:56)
[2021-06-11] MEDS: lamoTRIgine 100 MG TAB PO SCH ×2 (09:15→17:01)
[2021-06-11] MEDS: METOPROLOL TARTRATE 25 MG TAB PO SCH ×2 (09:15→23:31)
[2021-06-11] MEDS: guaiFENesin 600 MG TABCR PO SCH ×2 (09:15→17:00)
[2021-06-11] MEDS: MULTIVITAMIN TAB PO SCH (09:16)
[2021-06-11] MEDS: PANTOprazole 40 MG TAB PO SCH (09:16)
[2021-06-11] MEDS: SODIUM CHLORIDE 1 GM TABLET PO SCH ×2 (09:17→21:55)
[2021-06-11] MEDS: DOCUSATE SODIUM SYRUP 100 MG/10 ML UDC PO SCH (09:17)
[2021-06-11] MEDS: diazePAM 5 MG TABLET PO SCH ×2 (09:30→16:59)
[2021-06-11] MEDS: LANSOPRAZOLE 30 MG SOLTAB NG SCH (09:42)
[2021-06-11] MEDS ORDERED: VANCOMYCIN HCL 1,000 MG in SODIUM CHLORIDE 0.9% 250 ML IV SCH (12:00)
--- NOTE | 2021-06-11 14:59 | Cardiology Progress Note ---
Date of Service June 11, 2021 Assessment & Plan (1) Afib: (2) Infectious encephalopathy: (3) Paraplegia: Plan: The patient is in a sustained atrial fibrillation with RVR. Continue amiodarone infusion and oral metoprolol. Update LFTs in am. TSH normal earlier this stay. EKG in am to monitor QTc given plans for Azithromycin. Eliquis not a option in the setting of Tegretal therapy. Continue lovenox bridge to coumadin. Hopefully with treatment of her pneumonia, AF will improve. Admission and Anticipated Discharge Date Admission Date: June 05, 2021 Subjective Patient seen in follow up. Discussed updates with parents at the bedside. Patient without cardiac complaints. Telemetry reveals atrial fibrillation, for the most part ventricular rates in the range of 110-120 bpm , currently 64 bpm. On 6 l/min trach collar. Physical Exam Physical Exam: Temp Pulse Resp BP Pulse Ox 37 C 69 18 118/71 95 06/11/21 12:23 06/11/21 12:23 06/11/21 12:23 06/11/21 12:23 06/11/21 12:23 Respiratory: reduced BS at bases Cardiovascular: irregular rhythm. Gastrointestinal (Abdomen): normal bowel sounds, soft, nontender, no hepatosplenomegaly Results & Data ([facility]) Vital Signs (Past 12 Hours) Vital Signs Temp Pulse Pulse Resp BP Pulse Ox 06/11/21 12:23 37 C 69 18 118/71 95 06/11/21 08:00 100 H 06/11/21 07:00 36.5 C 108 H 20 118/66 96 06/11/21 04:00 37.3 C 93 H 18 125/82 94
[2021-06-11] MEDS ORDERED: VALPROIC ACID SOLN 500 MG/10 ML UDC PO ONE (15:45)
[2021-06-11] MEDS: WARFARIN SOD 10 MG TAB PO SCH (16:59)
[2021-06-11] MEDS: PEPTAMEN 1.5 CAL 1,000 ML BAG PEG SCH (18:46)
[2021-06-11] MEDS: LEVALBUTEROL HCL 1.25 MG/3 ML NEB NEB SCH (19:45)
[2021-06-11] MEDS: AZITHROMYCIN 250 MG in DEXTROSE 5% 250 ML IV SCH (21:50)
[2021-06-11] MEDS: LEVOTHYROXINE SODIUM 175 MCG TABLET PEG SCH (21:55)
[2021-06-12] MEDS: LEVALBUTEROL HCL 1.25 MG/3 ML NEB NEB SCH ×4 (00:37→20:12)
[2021-06-12] MEDS: AMIODARONE / D5W 360 MG/200 ML BAG IV SCH ×2 (02:25→12:34)
[2021-06-12] MEDS: ENOXAPARIN 100 MG/1ML SYR SQ SCH (02:50)
[2021-06-12] MEDS: TUBE FEEDING WATER FLUSH PEG SCH ×6 (03:12→22:00)
[2021-06-12 07:12] LABS: INR 2.3 (0.9-1.1); Prothrombin Time 21.8 Seconds (9.0-12.0)
[2021-06-12 07:29] LABS: Alanine Aminotransferase 18 U/L (12-78); Albumin Level 2.3 gm/dl (3.4-5.0); Aspartate Aminotransferase 12 U/L (15-37); Blood Urea Nitrogen 22 mg/dl (7-18); Calcium 8.5 mg/dl (8.5-10.1); Carbon Dioxide 29 mmol/L (21-32); Chloride 94 mmol/L (98-107); Est GFR (African American) > 150.0 ml/min; Est GFR (Non-African American) 131.2 ml/min; Glucose 93 mg/dl (70-99); Potassium 4.8 mmol/L (3.5-5.1); Sodium 128 mmol/L (136-145)
[2021-06-12 07:31] LABS: Albumin Globulin Ratio 0.5 (0.9-2); Alkaline Phosphatase 149 U/L (45-117); Bilirubin,Total 0.3 mg/dl (0.2-1); Globulin 4.3 gm/dl (2.5-4.0); Total Protein 6.6 gm/dl (6.4-8.2)
[2021-06-12 08:10] LABS: Carbamazepine Tegretol 7.8 mcg/ml (4-12)
[2021-06-12] MEDS: diazePAM 5 MG TABLET PO SCH ×2 (08:52→16:42)
[2021-06-12] MEDS: VALPROIC ACID 50 MG/ML UDP PO SCH ×2 (08:52→21:31)
[2021-06-12] MEDS: MAGNESIUM OXIDE 400 MG TAB PO SCH (08:52)
[2021-06-12] MEDS: LANSOPRAZOLE 30 MG SOLTAB NG SCH (08:53)
[2021-06-12] MEDS: DOCUSATE SODIUM SYRUP 100 MG/10 ML UDC PO SCH (08:53)
[2021-06-12] MEDS: lamoTRIgine 100 MG TAB PO SCH ×2 (08:53→16:43)
[2021-06-12] MEDS: guaiFENesin 600 MG TABCR PO SCH ×2 (08:53→16:45)
[2021-06-12] MEDS: MULTIVITAMIN TAB PO SCH (08:54)
[2021-06-12] MEDS: SODIUM CHLORIDE 1 GM TABLET PO SCH ×2 (08:55→21:31)
[2021-06-12] MEDS: carBAMazepine 100 MG CHEW TAB PO SCH ×2 (08:55→16:43)
[2021-06-12] MEDS: METOPROLOL TARTRATE 25 MG TAB PO SCH ×2 (09:00→21:30)
--- NOTE | 2021-06-12 09:03 | XRay Report ---
XR chest 1V portable CLINICAL HISTORY: eval for progression of pneumonia COMPARISON STUDY: Chest radiograph June 06, 2021. Chest CT June 08, 2021. FINDINGS: A tracheostomy tube is in place. Lung volumes are diminished. This is unchanged. A small pl eural effusion is noted. There is a suspected trace right pleural effusion. Bilateral lower lung opac ities persist. There is no pneumothorax. Right upper lung airspace opacity has improved. IMPRESSION: 1. Persistent bibasilar opacities and small bilateral pleural effusions, left larger than right. 2. Interval improvement in right lung airspace opacity which favors pneumonia. 3. Low lung volumes, unchanged. ACT 112: Negative or not required by law. Electronically signed by: Mata Hughes M.D. 06/12/2021 9:02 AM
[2021-06-12] MEDS ORDERED: VANCOMYCIN TROUGH ONE (11:30)
--- NOTE | 2021-06-12 13:31 | Electrocardiogram Report ---
Test Reason : Blood Pressure : / mmHG Vent. Rate : 104 BPM Atrial Rate : 272 BPM P-R Int : 000 ms QRS Dur : 076 ms QT Int : 336 ms P-R-T Axes : 000 060 -71 degrees QTc Int : 441 ms Atrial flutter with variable A-V block Abnormal ECG When compared with ECG of 07-JUN-2021 01:27, Atrial flutter has replaced Atrial fibrillation ST no longer depressed in Inferior leads Confirmed by Yamil Ortega ([id number]) on 06/12/2021 1:31:14 PM Referred By: Jt Liu Confirmed By:Yamil Ortega
--- NOTE | 2021-06-12 13:55 | Hospitalist Progress Note ---
Date of Service June 12, 2021 Assessment & Plan (1) Infectious encephalopathy: Plan: Patient now considered to have metabolic encephalopathy from multifocal pneumonia likely concern for aspiration pneumonia. Her initial antibiotic choice was tailored to a Enterococcus in her urine and a ESBL Klebsiella. There was some concern that the Invanz was creating issues with her seizure medications. Her urine did grow 20,000 colonies of ESBL Klebsiella but no Enterococcus. Subsequently to the multifocal pneumonia we are going to change her antibiotics to cover both MRSA of which she has a nasal swab positive and atypicals with azithromycin and vancomycin and gentamicin. Because these antibiotics may affect her Tegretol level and her level is at the upper lip and of normal we will skip a Tegretol level tonight reduce her dose to 250 twice daily. repeat nasal swab was negative will stop vancomycin, will complete 7 days of total for Gentamicin and continue azithromycin. The pt sees Dr Banks and if not improved the family requests pulmonary visit Continue Chest vest , pt uses at home, and xopenex (2) Afib: Plan: A. fib, now A Flutter, likely spurred upon her metabolic stressors of the multifocal pneumonia. Continues on metoprolol. Amiodarone and warfarin were started by cardiology for atrial fibrillation/ Atrial Flutter . If flutter persists Cardiology is considering EPIFAINO for atrial appendage thrombus and if negative cardioversion, may reconsider if lovenox can be used post procudure if AC is needed (3) Acute hyponatremia: Plan: Patient remains with hyponatremia near normal range (4) Tegretol toxicity: Plan: Patient Tegretol toxicity. Reportedly her mother states it works best with near the upper end of the therapeutic window follow at 250mg bid and increase if needed (5) Generalized epilepsy: Plan: Valproic acid and carbamazepine or use valproic acid remains low was augmented on 06/09 (6) Mental retardation: Plan: Patient with functional quadriplegia (7) Tracheostomy tube present: (8) Moderate malnutrition: Plan: There has been some persistent concern of aspiration with the mother certainly her multifocal pneumonia could be based upon chronic aspiration. Patient is going to have some augmentation of her nutrition based upon nocturnal enteral feedings via her PEG tube and being allowed pleasure eating (9) Pulmonary edema: Plan: This was seen on presentation she did receive a dose of Lasix however her echocardiogram supports the fact that she was not in congestive heart failure but we may have been seeing aspiration pneumonitis (10) DVT prophylaxis: Plan: Patient now off therapeutic heparin will revert back to subcu heparin Admission and Anticipated Discharge Date Admission Date: June 05, 2021 Subjective Patient's mother states the patient continues to be more awake and alert today. the patient uses her chest vest twice a day. continues to have slight daily improvement Review of Systems Review of Systems: Unable to obtain review of systems due to the patient not being able to speak she appears comfortable she is sleepy during the exam she is not having increased coughing or choking although she is an aspiration risk Physical Exam Physical Exam: The patient appeared well nourished and normally developed. Remains more awake and alert tracking with her eyes Vital signs as documented. Head exam is normocephalic atraumatic Neck is without JVD, ostomy is in place Lungs remain coarse and diminished due to her physical body positioning and just low tidal volumes Cardiac exam, patient on atrial flutter rate controlled rhythm Abdominal exam reveals normal bowel sounds, soft non tender, no masses PEG tube is in place Extremities are nonedematous and both pedal pulses are present Neurologic exam is alert and smiles and responds to questions is functionally paraplegic Skin is with large bruise to the right arm from previous heparin infusion Psychologically is without concerns for anxiety or depression Results & Data Results & Data ([facility]) Vital Signs (Past 12 Hours) Vital Signs Temp Pulse Pulse Resp BP BP Pulse Ox 06/12/21 12:00 98.2 F 67 20 124/90 98 06/12/21 09:00 110 H 06/12/21 08:57 99.0 F 107 H 20 124/90 97 06/12/21 07:00 121 H 20 95 06/12/21 04:15 99.0 F 95 H 20 97/79 L 94 PG Care Time/CCT Total # of Minutes Spent Total Time Spent with Patient: Total time spent is greater than 50% in coordination of care (as documented) at patient's floor/unit and/or counseling patient: Coding Level of Care Code 73485 Subseq Hosp Care Lvl 3 Diagnoses Infectious encephalopathy G93.49; B99.9 Afib I48.91 Acute hyponatremia E87.1 Tegretol toxicity T42.1X1A Generalized epilepsy G40.309 Mental retardation F79 Tracheostomy tube present Z93.0 Moderate malnutrition E44.0 Pulmonary edema J81.0 Chronicity: acute DVT prophylaxis Z29.9 (1) Pulmonary edema Chronicity: acute Qualified Code(s): J81.0 - Acute pulmonary edema
[2021-06-12] MEDS: DEXTROSE 5% IV SCH (14:22)
[2021-06-12] MEDS: GENTAMICIN SULFATE IV SCH (14:22)
--- NOTE | 2021-06-12 17:11 | Cardiology Progress Note ---
Date of Service June 12, 2021 Assessment & Plan (1) Afib: (2) Infectious encephalopathy: (3) Paraplegia: Plan: * Persistent atrial fibrillation (atrial flutter) noted. Of note, baseline EKG dating back to 2018 revealed sinus bradycardia with first-degree AV block, so there is some degree of risk of bradycardia if we increase her medications too much. * She has been in atrial fibrillation for greater than 48 hours and is now been on amiodarone infusion greater than 48 hours, and given her risk of possibly having a left atrial/left atrial appendage thrombus, will discontinue amiodarone. * Amiodarone also does interact with her Tegretol, increasing her Tegretol l evels. * Diltiazem is not a good option, as Tegretol increases diltiazem effect. * Metoprolol does not interact with Tegretol, will increase dose from 25 mg twice daily to 25 mg 4 times daily. * Continue treatment for pneumonia. * Considerations include EPIFANIO guided cardioversion, but I am concerned about the potential risks of sedation. * Another option is to proceed with rate control and anticoagulation, and if she remains in atrial fibrillation after 4 weeks of uninterrupted therapeutic anticoagulation, consider cardioversion (without EPIFANIO) then which would allow for less sedation. * In terms of stroke prophylaxis, as noted, Tegretol reduces the effectiveness of the direct oral anticoagulant agents Pradaxa, Xarelto, and Eliquis. It increases the effectiveness of Coumadin, and therefore may place patient at risk for labile INR measurements. * Lovenox has no interaction with Tegretol. * * INR today is therapeutic at 2.3 having received 10 mg of Coumadin on 06/10 and 06/11. Dose has already been reduced by the primary team to 2.5 mg daily with plans for INR tomorrow. Lovenox bridge has also been discontinued. * The relatively rapid escalation of her INR may be explained by her Tegretol, antibiotic therapy, and amiodarone therapy. As noted, if labile INRs become an issue, Lovenox may be an option, and the patient's mother who is a nurse thought that this may be a favorable alternative an effort to avoid the need for frequent blood draw observation and dose changes as would be necessary with Coumadin. Admission and Anticipated Discharge Date Admission Date: June 05, 2021 Subjective Patient seen and examined. She offers no subjective response to me or to her parents during my assessment. Ongoing atrial fibrillation noted, ventricular rates were down to the range of 60s while is in the room with her, but there are more recent episodes upwards to 140 bpm. She remains on 6 L/min supplemental oxygen with her trach collar. Review of Systems Review of Systems: Unobtainable due to cognitive status Physical Exam Physical Exam: Temp Pulse Resp BP Pulse Ox 36.8 C 110 H 20 124/90 98 06/12/21 12:00 06/12/21 15:14 06/12/21 12:00 06/12/21 12:00 06/12/21 12:00 Constitutional: No acute distress Respiratory: Mildly decreased breath sounds the bases Cardiovascular: Rate/Rhythm: + irregularly irregular Heart Sounds: no murmur Extremities: no edema Results & Data ([facility]) Vital Signs (Past 12 Hours) Vital Signs Temp Pulse Pulse Resp BP BP Pulse Ox 06/12/21 15:14 110 H 06/12/21 12:00 36.8 C 67 20 124/90 98 06/12/21 09:00 110 H 06/12/21 08:57 37.2 C 107 H 20 124/90 97 06/12/21 07:00 121 H 20 95
[2021-06-12] MEDS: PEPTAMEN 1.5 CAL 1,000 ML BAG PEG SCH (18:01)
[2021-06-12] MEDS: LEVOTHYROXINE SODIUM 175 MCG TABLET PEG SCH (21:30)
[2021-06-12] MEDS: AZITHROMYCIN 250 MG in DEXTROSE 5% 250 ML IV SCH (21:30)
[2021-06-13] MEDS: TUBE FEEDING WATER FLUSH PEG SCH ×6 (02:00→22:26)
[2021-06-13] MEDS: LEVALBUTEROL HCL 1.25 MG/3 ML NEB NEB SCH ×2 (07:32→18:58)
[2021-06-13] MEDS: METOPROLOL TARTRATE 25 MG TAB PO SCH ×3 (07:58→21:12)
[2021-06-13] MEDS: MAGNESIUM OXIDE 400 MG TAB PO SCH (07:59)
[2021-06-13] MEDS: MULTIVITAMIN TAB PO SCH (07:59)
[2021-06-13] MEDS: carBAMazepine 100 MG CHEW TAB PO SCH ×2 (08:00→17:33)
[2021-06-13] MEDS: lamoTRIgine 100 MG TAB PO SCH ×2 (08:01→17:30)
[2021-06-13] MEDS: guaiFENesin 600 MG TABCR PO SCH ×2 (08:01→17:30)
[2021-06-13] MEDS: VALPROIC ACID 50 MG/ML UDP PO SCH ×2 (08:03→21:11)
[2021-06-13] MEDS: SODIUM CHLORIDE 1 GM TABLET PO SCH ×2 (08:03→21:12)
[2021-06-13] MEDS: LANSOPRAZOLE 30 MG SOLTAB NG SCH (08:04)
[2021-06-13] MEDS: DOCUSATE SODIUM SYRUP 100 MG/10 ML UDC PO SCH (08:05)
[2021-06-13] MEDS: diazePAM 5 MG TABLET PO SCH ×2 (08:10→17:37)
[2021-06-13 08:24] LABS: INR 2.6 (0.9-1.1); Prothrombin Time 24.7 Seconds (9.0-12.0)
[2021-06-13 08:36] LABS: Carbamazepine Tegretol 8.8 mcg/ml (4-12)
--- NOTE | 2021-06-13 08:48 | Hospitalist Progress Note ---
Date of Service June 13, 2021 Assessment & Plan (1) Infectious encephalopathy: Plan: Patient now considered to have metabolic encephalopathy from multifocal pneumonia likely concern for aspiration pneumonia. Her initial antibiotic choice was tailored to a Enterococcus in her urine and a ESBL Klebsiella. There was some concern that the Invanz was creating issues with her seizure medications. Her urine did grow 20,000 colonies of ESBL Klebsiella but no Enterococcus. Subsequently to the multifocal pneumonia we are going to change her antibiotics to cover both MRSA of which she has a nasal swab positive and atypicals with azithromycin and vancomycin and gentamicin. Because these antibiotics may affect her Tegretol level and her level is at the upper lip and of normal we will skip a Tegretol level tonight reduce her dose to 250 twice daily. repeat nasal swab was negative will stop vancomycin, will complete 7 days of total for Gentamicin and continue azithromycin. The pt sees Dr Banks and will see Dr Rutherford this week to help given her complex issues with pneumonia and trache Continue Chest vest , pt uses at home, and xopenex (2) Afib: Plan: A. fib, now A Flutter, likely spurred upon her metabolic stressors of the multifocal pneumonia. Continues on metoprolol. Amiodarone and warfarin were started by cardiology for atrial fibrillation/ Atrial Flutter . If flutter per sists Cardiology is considering EPIFANIO for atrial appendage thrombus and if negative cardioversion, may reconsider if lovenox can be used post procudure if AC is needed (3) Acute hyponatremia: Plan: Patient remains with hyponatremia near normal range (4) Tegretol toxicity: Plan: Patient Tegretol toxicity. Reportedly her mother states it works best with near the upper end of the therapeutic window follow at 250mg bid and increase if needed (5) Generalized epilepsy: Plan: Valproic acid and carbamazepine or use valproic acid remains low this had been intermittently augmented through this stay with 500 mg additional daily (6) Mental retardation: Plan: Patient with functional quadriplegia (7) Tracheostomy tube present: (8) Moderate malnutrition: Plan: There has been some persistent concern of aspiration with the mother certainly her multifocal pneumonia could be based upon chronic aspiration. Patient is going to have some augmentation of her nutrition based upon nocturnal enteral feedings via her PEG tube and being allowed pleasure eating (9) Pulmonary edema: Plan: This was seen on presentation she did receive a dose of Lasix echocardiogram shows preserved EF (10) DVT prophylaxis: Plan: Patient now off therapeutic heparin inr is therapeutic with coumadin Admission and Anticipated Discharge Date Admission Date: June 05, 2021 Subjective pt has limited responses, she did no cooperate for exam, seems to be in a relative stable state except for aflutter with occasional tachycardia Review of Systems Review of Systems: Unable to obtain review of systems due to the patient not being able to speak she appears comfortable she is sleepy during the exam she is not having increased coughing or choking although she is an aspiration risk Physical Exam Physical Exam: The patient appeared well nourished and normally developed. Remains more awake and alert tracking with her eyes Vital signs as documented. Head exam is normocephalic atraumatic Neck is without JVD, ostomy is in place Lungs remain coarse and diminished due to her physical body positioning and just low tidal volumes Cardiac exam, patient on atrial flutter rate controlled rhythm Abdominal exam reveals normal bowel sounds, soft non tender, no masses PEG tube is in place Extremities are nonedematous and both pedal pulses are present Neurologic exam is alert and smiles and responds to questions is functionally paraplegic Skin is with large bruise to the right arm from previous heparin infusion Psychologically is without concerns for anxiety or depression Results & Data Results & Data ([facility]) Vital Signs (Past 12 Hours) Vital Signs Temp Pulse Resp BP Pulse Ox 06/13/21 07:33 117 H 22 96 06/13/21 04:26 99.0 F 123 H 20 93/72 L 95 06/12/21 23:55 98.8 F 106 H 19 97/83 L 96 PG Care Time/CCT Total # of Minutes Spent Total Time Spent with Patient: Total time spent is greater than 50% in coordination of care (as documented) at patient's floor/unit and/or counseling patient: Coding Level of Care Code 50968 Subseq Hosp Care Lvl 3 Diagnoses Infectious encephalopathy G93.49; B99.9 Afib I48.91 Acute hyponatremia E87.1 Tegretol toxicity T42.1X1A Generalized epilepsy G40.309 Mental retardation F79 Tracheostomy tube present Z93.0 Moderate malnutrition E44.0 Pulmonary edema J81.0 Chronicity: acute DVT prophylaxis Z29.9 (1) Pulmonary edema Chronicity: acute Qualified Code(s): J81.0 - Acute pulmonary edema
[2021-06-13 08:54] LABS: T4 Free Thyroxine 1.12 ng/dl (0.8-1.6); Thyroid Stimulating Hormone 3.79 uIu/ml (0.300-4.500)
[2021-06-13] MEDS ORDERED: FUROSEMIDE 20 MG in SYRINGE 0 ML IV ONE (12:45)
--- NOTE | 2021-06-13 13:37 | Cardiology Progress Note ---
Date of Service June 13, 2021 Assessment & Plan (1) Afib: (2) Infectious encephalopathy: (3) Paraplegia: Plan: * Persistent atrial fibrillation (atrial flutter) noted. Of note, baseline EKG dating back to 2018 revealed sinus bradycardia with first-degree AV block, so there is some degree of risk of bradycardia if we increase her medications too much. * * Amiodarone interacts with her Tegretol, increasing her Tegretol levels. * Diltiazem is not a good option, as Tegretol increases diltiazem effect. * Metoprolol does not interact with Tegretol. Dose increased on 06/12, however patient has only received 1 of the last 3 doses at medication was held for SBP in the 90s. * Will change metoprolol tartrate to 37.5 mg BID , with hold for HR<60, SBP < 95 mm Hg. * Continue treatment for pneumonia. * At present I favor an approach of rate control and anticoagulation. * Considerations include EPIFANIO guided cardioversion, but I am concerned about the potential risks of sedation. * Another option is to proceed with rate control and anticoagulation, and if she remains in atrial fibrillation after 4 weeks of uninterrupted therapeutic anticoagulation, consider cardioversion (without EPIFANIO) then which would allow for less sedation. * In terms of stroke prophylaxis, as noted, Tegretol reduces the effectiveness of the direct oral anticoagulant agents Pradaxa, Xarelto, and Eliquis. It increases the effectiveness of Coumadin, and therefore may place patient at risk for labile INR measurements. * Lovenox has no interaction with Tegretol. * INR today is therapeutic at 2.6 . Continue coumadin 2.5 mg daily Pulmonary input noted and appreciated. Agree with trial of furosemide, OK to give if BP in 90s. Admission and Anticipated Discharge Date Admission Date: June 05, 2021 Subjective Patient seen in follow up. Once again, no subjective input from patient when I see her, history obtained from her mother. Telemetry reveals atrial fibrillation at 95 bpm at present. At times was up to 120-140 bpm. Review of Systems Review of Systems: Unobtainable due to cognitive status Physical Exam Physical Exam: Temp Pulse Resp BP Pulse Ox 37.4 C 79 17 98/68 L 95 06/13/21 11:03 06/13/21 11:03 06/13/21 11:03 06/13/21 13:48 06/13/21 11:03 Constitutional: no acute distress Respiratory: Auscultation: + diminished lung sounds (diminished BS at the bases ) Results & Data ([facility]) Vital Signs (Past 12 Hours) Vital Signs Temp Pulse Resp BP BP Pulse Ox 06/13/21 11:03 37.4 C 79 17 95/62 L 95 06/13/21 07:33 117 H 22 96 06/13/21 04:26 37.2 C 123 H 20 93/72 L 95
--- NOTE | 2021-06-13 14:28 | Pulmonary Consultation ---
Date of Consultation June 13, 2021 Assessment & Plan (1) Hypoxia: 50-year-old female with a past medical history of developmental delay, chronic seizures, tracheostomy placement 6 years ago status post spinal cord injury resulting in paraplegia presenting to the hospital due to concerns of urinary tract infection and found to have acute respiratory failure with hypoxia. Acute hypoxemic respiratory failure: Chest imaging findings and laboratory data suggests possible volume overload. proBNP demonstrated mildly elevated level. 20 mg of IV Lasix ordered. Will monitor urine output. Procalcitonin was within normal limits. Atypical infection is difficult to rule out. Agree with a trial of azithromycin for 5 to 7 days. Urine Legionella antigen has been added. MRSA screen was negative. I strongly encourage getting the patient out of the bed to a chair to help improve her lung volumes. I have increased chest physiotherapy to 3 times daily. Weak cough secondary to paraplegia and acute illness: [facility] CoughAssist at settings of 30 cm H2O positive pressure of 30 cm H2O negative pressure twice daily. Continue chest physiotherapy as above, 3 times daily. Morbid obesity: BMI 43.5. Bicarbonate levels are elevated. She is at risk for OHS. Recommend outpatient polysomnography to evaluate for sleep disordered breathing. Weight loss is advised. Moderate malnutrition: Patient's albumin is low. This can cause third spacing and pulmonary edema. This is likely also contributing to her weakness. [employer] following the patient. Pulmonary will continue to follow along with you. Thank you for the consultation. Case was discussed with the patient's RN and hospitalist. I had an extensive discussion with the patient's mother who was at bedside and expressed understanding of the diagnosis and treatment plan. (2) Paraplegia: (3) Pulmonary edema: Chronicity: acute Qualified Code(s): J81.0 - Acute pulmonary edema (4) Moderate malnutrition: (5) Weak cough: (6) Obesity: History of Present Illness Reason for Consultation: Respiratory failure with history of tracheostomy Attending Physician: London Cho MD History of Present Illness 50-year-old female followed by Dr. Rey in the pulmonary clinic who presented to the hospital due to concerns of urinary tract infection and pneumonia. She has a history of tracheostomy placed approximately 6 years ago due to a spinal cord injury. She has a history of developmental delay dating back to childhood. He has chronic seizures. History is unobtainable from the patient. History is obtained from the chart review and discussion with patient's mother who is at bedside. The patient's mother is a retired emergency department nurse who used to work in this hospital. The patient had Covid pneumonia in the winter 2019. The patient's mother notes that ever since Covid pneumonia, the patient has been more tired and more prone to respiratory illness. The mother notes that she suctions her frequently using a small suction catheter via the tracheostomy. She does not normally have an inner cannula in place in her tracheostomy. She is able to eat. She does have a history of aspiration events. She had required bronchoscopy in the past after aspirating spaghetti. She has been treated this admission with gentamicin for an ESBL urinary tract infection. She is currently on azithromycin for possible atypical pneumonia. I checked a proBNP level which was mildly elevated. Procalcitonin was within normal limits. Sputum cultures checked on 06/08/2021 did not demonstrate any significant growth. Chest CTA from the demonstrated elevation of the right hemidiaphragm, small bilateral effusions and multifocal airspace opacities. Chest x-ray from 06/12/2021 demonstrated low lung volumes. Improvement in the right upper lobe lung airspace opacity was noted. Allergies Allergy/AdvReac Type Severity Reaction Status Date / Time phenobarbital AdvReac Intermediate depresssed Verified 05/24/21 21:24 Home Medications Medication Instructions Recorded Confirmed Type diazepam 5 mg tablet 5 mg PO BID 11/14/18 06/05/21 History magnesium oxide 200 mg PO Q2D 11/14/18 06/05/21 History magnesium oxide 400 mg PO Q2D 11/14/18 06/05/21 History pseudoephedrine HCl 30 mg tablet 30 mg PO DAILY PRN 01/29/20 06/05/21 History (Sudafed) ibuprofen 200 mg tablet 400 - 600 mg PO UD PRN 10/17/20 06/05/21 History levalbuterol HCl 0.63 mg/3 mL 0.63 mg INHALATION Q8 PRN 10/17/20 06/05/21 History solution for nebulization carbamazepine 200 mg tablet 400 mg PO HS 05/24/21 06/05/21 History carbamazepine 200 mg tablet 200 mg PO DAILY 05/24/21 06/05/21 History (Tegretol) carbamazepine 200 mg tablet 400 mg PO Q OTHER DAY 05/24/21 06/05/21 History (Tegretol) docusate sodium 60 mg/15 mL oral 100 mg PO QAM 05/24/21 06/05/21 History syrup guaifenesin 600 mg tablet, 600 mg PO BID 05/24/21 06/05/21 History extended release 12 hr lamotrigine 100 mg tablet 100 mg PO BID 05/24/21 06/05/21 History (Lamictal) levothyroxine 175 mcg tablet 175 mcg FEEDING TUBE DAILY@2100 05/24/21 06/05/21 History multivitamin 1 tab PO QAM 05/24/21 06/05/21 History mupirocin 2 % topical ointment 1 applic TOPICAL DAILY 05/24/21 06/05/21 History oxybutynin chloride 10 mg 10 mg PO DAILY PRN 05/24/21 06/05/21 History tablet,extended release 24 hr valproic acid (as sodium salt) 250 625 mg FEEDING TUBE BID 05/24/21 06/05/21 History mg/5 mL oral solution fluconazole 150 mg tablet 150 mg PO Q3D #2 tab 05/27/21 06/05/21 Rx (Diflucan) Patient History Medical History (Updated 06/13/21 @ 14:23 by Biju Oscar MD) Chronic constipation Gastrointestinal tube present Generalized epilepsy (09/22/11) Leeroy filter in place 2015 -Placed after back surgery prophylactically Mental retardation Obesity Weak cough Surgical History Difficult ventilator weaning 2015 - post op back surgery History of ankle surgery left ankle History of back surgery 2014 History of cardiac cath [place] 2015 Hx of hysterectomy, total 2009 Family History Other No pertinent family history in first degree relatives Social History Smoking Status: Never smoker Second Hand Exposure: No; Hx Alcohol Use: No Hx Substance Use: No Preferred Language: [place]al[place] Communication Ability: Impaired [employer] Required: No Beliefs That Will Affect Care: None Current Living Situation: Parent Other Information That Helps Us Care for You: No Feels Safe at Home: Yes Assistive Devices: Oxygen - Continuous Review of Systems Review of Systems: Review of systems is limited given patient's cognitive status. Physical Exam Constitutional: Obese appearing. No apparent distress. Lethargic. Eyes: PERRL, conjunctivae normal, anicteric sclerae ENMT: Tracheostomy in place. Neck: normal visual inspection and + thick neck Respiratory: Diminished lung sounds bilaterally. No wheezes. Cardiovascular: RRR, no murmur, no edema Skin: no rashes, warm and dry Neurologic: PERRL, EOMI, accommodation nl, no face palsy, no dysarthria Psychiatric: A+Ox3, euthymic affect Results & Data Results & Data ([facility]) Vital Signs (Past 12 Hours) Vital Signs Temp Pulse Resp BP BP Pulse Ox 06/13/21 13:48 98/68 L 06/13/21 11:03 99.3 F 79 17 95/62 L 95 06/13/21 07:33 117 H 22 96 06/13/21 04:26 99.0 F 123 H 20 93/72 L 95 vital signs, labs and imaging personally reviewed PG Care Time/CCT Total # of Minutes Spent Total Time Spent with Patient: Total time spent is greater than 50% in coordination of care (as documented) at patient's floor/unit and/or counseling patient: Coding Level of Care Code 15322 Inpt Consult Level 4 Diagnoses Paraplegia G82.20 Pulmonary edema J81.0 Chronicity: acute Hypoxia R09.02 Moderate malnutrition E44.0 Weak cough R05 Obesity E66.9
[2021-06-13] MEDS: WARFARIN SOD 2.5 MG TAB PO SCH (17:34)
[2021-06-13] MEDS: PEPTAMEN 1.5 CAL 1,000 ML BAG PEG SCH (18:44)
[2021-06-13] MEDS: AZITHROMYCIN 250 MG in DEXTROSE 5% 250 ML IV SCH (19:42)
[2021-06-13] MEDS ORDERED: METOPROLOL TARTRATE 25 MG TAB PO SCH (21:00)
[2021-06-13] MEDS: LEVOTHYROXINE SODIUM 175 MCG TABLET PEG SCH (21:11)
[2021-06-14] MEDS: TUBE FEEDING WATER FLUSH PEG SCH ×6 (05:37→21:23)
[2021-06-14 07:11] LABS: INR 2.1 (0.9-1.1); Prothrombin Time 19.9 Seconds (9.0-12.0)
[2021-06-14] MEDS: LEVALBUTEROL HCL 1.25 MG/3 ML NEB NEB SCH ×2 (07:16→19:42)
[2021-06-14 07:21] LABS: Carbamazepine Tegretol 8.7 mcg/ml (4-12)
[2021-06-14] MEDS: MULTIVITAMIN TAB PO SCH (09:09)
[2021-06-14] MEDS: carBAMazepine 100 MG CHEW TAB PO SCH ×2 (09:09→17:21)
[2021-06-14] MEDS: VALPROIC ACID 50 MG/ML UDP PO SCH ×2 (09:09→20:07)
[2021-06-14] MEDS: METOPROLOL TARTRATE 25 MG TAB PO SCH ×2 (09:09→20:07)
[2021-06-14] MEDS: SODIUM CHLORIDE 1 GM TABLET PO SCH ×2 (09:10→20:07)
[2021-06-14] MEDS: LANSOPRAZOLE 30 MG SOLTAB NG SCH (09:10)
[2021-06-14] MEDS: MAGNESIUM OXIDE 400 MG TAB PO SCH (09:10)
[2021-06-14] MEDS: lamoTRIgine 100 MG TAB PO SCH ×2 (09:10→17:21)
[2021-06-14] MEDS: guaiFENesin 600 MG TABCR PO SCH ×2 (09:10→17:21)
[2021-06-14] MEDS: DOCUSATE SODIUM SYRUP 100 MG/10 ML UDC PO SCH (09:11)
--- NOTE | 2021-06-14 09:21 | XRay Report ---
XR chest 2V PA/lateral CLINICAL HISTORY: follow up infiltrates COMPARISON STUDY: June 12, 2021 FINDINGS: No definite pneumothorax seen however evaluation is limited because right and left lung apices are ob scured by patient's chin.. Redemonstration of moderate left pleural effusion associated with atelecta sis/infiltrate at the left lower lung. Also dense left retrocardiac opacity is unchanged since prior study. Lung volumes are decreased with crowded lung markings. Mild interval worsening of reticular opacities at the mid-lower right lung which could represent atelectasis/infiltrates. The mediastinal silhouette is unchanged since prior and partially obscured by surrounding opacities. Pulmonary vasculature is obscured. Osseous structures: unremarkable IMPRESSION: 1. Mild interval worsening of reticular opacities at the mid-lower right lung which could represent atelectasis/or infiltrates. 2. Stable left pleural effusion associated with atelectasis/infiltrate at the left lung. 3. Limited exam due to low inspiratory effort and patient's chin overlying the lateral lung apices. ACT 112: Negative or not required by law. The above report was generated using voice recognition software. It may contain grammatical, syntax o r spelling errors. Electronically signed by: Anuradha Lisa DO 06/14/2021 9:20 AM
[2021-06-14] MEDS: diazePAM 5 MG TABLET PO SCH ×2 (09:23→17:21)
[2021-06-14 11:02] LABS: Base Excess ABG 4.3 mEq/L (-9-1.8); HCO3 ABG 29 mmol/L (19-24); Oxygen Saturation ABG 93.2 % (90-95); PCO2 ABG 43 mmHg (35-46); PO2 ABG 65 mmHg (80-95); pH ABG 7.44 (7.35-7.45)
[2021-06-14 11:03] LABS: Allen Test Pos (Pos)
[2021-06-14 12:06] LABS: Hematocrit (blood only) 30.3 % (37-47); Hemoglobin 10.6 g/dL (12.0-16.0); Mean Corpuscular Hemoglobin 32.2 pg (25-34); Mean Corpuscular Volume 92.1 fL (80-100); Mean Platelet Volume 9.3 fL (7.4-10.4); Platelet Count 190 K/uL (130-400); RDW Coefficient of Variation 14.6 % (11.5-14.5); RDW Standard Deviation 49.1 fL (36.4-46.3); Red Blood Count 3.29 M/uL (4.2-5.4); White Blood Count 4.38 K/uL (4.8-10.8)
[2021-06-14 12:23] LABS: BUN Creatinine Ratio 85.2 (10-20); Blood Urea Nitrogen 22 mg/dl (7-18); Calcium 8.4 mg/dl (8.5-10.1); Carbon Dioxide 29 mmol/L (21-32); Chloride 94 mmol/L (98-107); Creatinine Clr Calc Pharmacy 260.2 ml/min; Est GFR (African American) > 150.0 ml/min; Est GFR (Non-African American) 141.9 ml/min; Glucose 104 mg/dl (70-99); Potassium 4.3 mmol/L (3.5-5.1); Sodium 128 mmol/L (136-145)
--- NOTE | 2021-06-14 14:23 | Pulmonology Progress Note ---
Date of Service June 14, 2021 Assessment & Plan (1) Hypoxia: Plan: 50-year-old female with a past medical history of developmental delay, chronic seizures, tracheostomy placement 6 years ago status post spinal cord injury resulting in paraplegia presenting to the hospital due to concerns of urinary tract infection and found to have acute respiratory failure with hypoxia. Acute hypoxemic respiratory failure: Chest imaging findings and laboratory data suggests possible volume overload. proBNP demonstrated a mildly elevated level. We will give a dose of 20 mg of oral Lasix today.. Atypical infection is difficult to rule out. Agree with a trial of azithromycin for 5 to 7 days. Urine Legionella antigen is pending. MRSA screen was negative. Continue chest physiotherapy 3 times daily and CoughAssist device while in the hospital. Weak cough secondary to paraplegia and acute illness: CoughAssist at settings of 30 cm H2O positive pressure and 30 cm H2O negative pressure twice daily. Continue chest physiotherapy as above, 3 times daily. Morbid obesity: BMI 43.5. Bicarbonate levels are elevated. ABG is not suggestive of hypercapnia or OHS at this time. Consider outpatient polysomnography to evaluate for sleep disordered breathing. Weight loss is advised. Moderate malnutrition: Patient's albumin is low. This can cause third spacing and pulmonary edema. This is likely also contributing to her weakness. [employer] following the patient. Pulmonary will continue to follow along with you. Thank you for the consultation. Case was discussed with the patient's RN and hospitalist. I had an extensive discussion with the patient's mother who was at bedside and expressed understanding of the diagnosis and treatment plan. (2) Paraplegia: (3) Pulmonary edema: Chronicity: acute Qualified Code(s): J81.0 - Acute pulmonary edema (4) Moderate malnutrition: (5) Weak cough: (6) Obesity: Admission and Anticipated Discharge Date Admission Date: June 05, 2021 Subjective Patient seen and examined today. She is sitting up in her wheelchair. She is accompanied by her mother. She appears more responsive and interactive with my questions. She smiles at times. I am not able to obtain review of systems gi marcia her history of developmental delay. She was receiving the end of her CoughAssist treatment on my arrival to the room. No significant fevers, chills or night sweats overnight. She has had evidence of tachycardia and currently her heart rate is in the 116 range. Review of Systems Review of Systems: Largely unobtainable due to patient's cognitive status. Physical Exam Constitutional: Obese appearing. No apparent distress. Eyes: PERRL, conjunctivae normal, anicteric sclerae ENMT: Tracheostomy in place. Neck: normal visual inspection and + thick neck Respiratory: Diminished lung sounds bilaterally. No wheezes. Cardiovascular: RRR, no murmur, no edema Skin: no rashes, warm and dry Neurologic: PERRL, EOMI, accommodation nl, no face palsy, no dysarthria Psychiatric: A+Ox3, euthymic affect Results & Data Results & Data ([facility]) Vital Signs (Past 12 Hours) Vital Signs Temp Pulse Pulse Resp BP Pulse Ox 06/14/21 08:00 116 H 06/14/21 07:16 20 92 06/14/21 04:00 98.4 F 119 H 18 102/76 98 Diagnostic Findings Chest x-ray personally reviewed with persistent hypoventilatory changes and mild airspace disease. Blunting of the left costophrenic angle noted. PG Care Time/CCT Total # of Minutes Spent Total Time Spent with Patient: Total time spent is greater than 50% in coordination of care (as documented) at patient's floor/unit and/or counseling patient: Coding Level of Care Code 29656 Subseq Hosp Care Lvl 3 Diagnoses Hypoxia R09.02 Paraplegia G82.20 Pulmonary edema J81.0 Chronicity: acute Moderate malnutrition E44.0 Weak cough R05 Obesity E66.9
[2021-06-14] MEDS ORDERED: FUROSEMIDE 20 MG TAB PO ONE (14:30)
[2021-06-14] MEDS: WARFARIN SOD 2.5 MG TAB PO SCH (15:24)
--- NOTE | 2021-06-14 17:15 | Cardiology Progress Note ---
Date of Service June 14, 2021 Assessment & Plan (1) Afib: (2) Pulmonary edema: Plan: Continue metoprolol 37.5 mg BID. Agree with furosemide, small left pleural effusion note on echo images from 06/07/21 (reviewed independently), Chest CT 06/08, and recent CXR. Family tells me the mild hyponatremia (levels of 128-130) are chronic. INR= 2.1 , Continue coumadin. Will contact [facility] tomorrow with regards to plan for mobile phlebotomy, as pt lives 1 [place] away form [place] locations, and home INR machine, which is a good option, just may take time to arrange. Admission and Anticipated Discharge Date Admission Date: June 05, 2021 Subjective Unable to obtain history from patient or subjective input. On telemetry , atrial flutter, with ventricular rates in the 70s notes, with occasional brief high rate episodes to the 140s to 150s that are note sustained. Review of Systems Review of Systems: ROS unobtainable. Physical Exam Physical Exam: Temp Pulse Resp BP Pulse Ox 36.9 C 73 20 102/76 92 06/14/21 04:00 06/14/21 16:00 06/14/21 07:16 06/14/21 04:00 06/14/21 07:16 Constitutional: no acute distress Respiratory: mildly decreased BS at the bases Cardiovascular: Rate/Rhythm: + irregularly irregular Gastrointestinal (Abdomen): normal bowel sounds, soft, nontender, no hepatosplenomegaly Neurologic: paraplegia Results & Data ([facility]) Vital Signs (Past 12 Hours) Vital Signs Pulse Resp Pulse Ox 06/14/21 16:00 73 06/14/21 08:00 116 H 06/14/21 07:16 20 92 (1) Pulmonary edema Chronicity: acute Qualified Code(s): J81.0 - Acute pulmonary edema
[2021-06-14] MEDS: AZITHROMYCIN 250 MG in DEXTROSE 5% 250 ML IV SCH (19:54)
--- NOTE | 2021-06-14 20:10 | Hospitalist Progress Note ---
Date of Service June 14, 2021 Assessment & Plan (1) Infectious encephalopathy: Plan: Patient now considered to have metabolic encephalopathy from multifocal pneumonia likely concern for aspiration pneumonia. Her initial antibiotic choice was tailored to a Enterococcus in her urine and a ESBL Klebsiella. There was some concern that the Invanz was creating issues with her seizure medications. Her urine did grow 20,000 colonies of ESBL Klebsiella but no Enterococcus. Subsequently to the multifocal pneumonia we are going to change her antibiotics to cover both MRSA of which she has a nasal swab positive and atypical with azithromycin and vancomycin and gentamicin. Because these antibiotics may affect her Tegretol level and her level is at the upper lip and of normal we will skip a Tegretol level tonight reduce her dose to 250 twice daily. Repeat nasal swab was negative will stopped vancomycin 06/11, will complete 7 days of total for Gentamicin (06/06-06/13) and continue azithromycin (06/10-. Continue Chest vest , pt uses at home, and xopenex Given aspiration concern will consult SLT to reassess as could have all her feeds via PEG (insurance has previously denied as she could swallow) if unasfe to swallow. (2) Afib: Plan: A. fib, now A Flutter, likely spurred upon her metabolic stressors of the multifocal pneumonia. Continues on metoprolol, anticoagulation with warfarin. (3) Acute hyponatremia: Plan: Patient remains with hyponatremia near normal range (4) Tegretol toxicity: Plan: Patient Tegretol toxicity. Reportedly her mother states it works best with near the upper end of the therapeutic window follow at 250mg bid and increase if needed (5) Generalized epilepsy: Plan: Valproic acid and carbamazepine or use valproic acid remains low this had been intermittently augmented through this stay with 500 mg additional daily (6) Mental retardation: Plan: Patient with functional quadriplegia (7) Tracheostomy tube present: (8) Moderate malnutrition: Plan: There has been some persistent concern of aspiration with the mother certainly her multifocal pneumonia could be based upon chronic aspiration. Patient is going to have some augmentation of her nutrition based upon nocturnal enteral feedings via her PEG tube and being allowed pleasure eating Consult SLT as above (9) Pulmonary edema: Plan: This was seen on presentation she did receive a dose of Lasix echocardiogram shows preserved EF (10) DVT prophylaxis: Plan: Patient now off therapeutic heparin inr is therapeutic with coumadin Admission and Anticipated Discharge Date Admission Date: June 05, 2021 Subjective Unable to get any history or subjective from patient. Discussed care with her mother at bedside. Breathing is close to her baseline. Rate control currently good in 70s. INR 2.1 this morning. Review of Systems Review of Systems: Unobtainable due to cognitive status Physical Exam Constitutional: + not well nourished and no acute distress Neck: Trach present Respiratory: normal respiratory effort, lungs clear to auscultation + cough Cardiovascular: Rate/Rhythm: + tachycardic and + irregularly irregular Vessels: no JVD Extremities: normal capillary refill and + pedal edema (1+ b/l pitting) Gastrointestinal (Abdomen): Percussion/Palpation: abdomen soft; abdomen nontender Neurologic: awake Psychiatric: Orientation: alert Results & Data Results & Data ([facility]) Vital Signs (Past 12 Hours) Vital Signs Temp Pulse Pulse Resp BP Pulse Ox 06/14/21 19:40 18 94 06/14/21 19:00 36.7 C 95 H 20 120/85 95 06/14/21 16:00 73 PG Care Time/CCT Total # of Minutes Spent Total Time Spent with Patient: Total time spent is greater than 50% in coordination of care (as documented) at patient's floor/unit and/or counseling patient: Coding Level of Care Code 18575 Subseq Hosp Care Lvl 2 Diagnoses Infectious encephalopathy G93.49; B99.9 Afib I48.91 Acute hyponatremia E87.1 Tegretol toxicity T42.1X1A Generalized epilepsy G40.309 Mental retardation F79 Tracheostomy tube present Z93.0 Moderate malnutrition E44.0 Pulmonary edema J81.0 Chronicity: acute DVT prophylaxis Z29.9 (1) Pulmonary edema Chronicity: acute Qualified Code(s): J81.0 - Acute pulmonary edema
[2021-06-14] MEDS: LEVOTHYROXINE SODIUM 175 MCG TABLET PEG SCH (21:17)
[2021-06-14] MEDS: PEPTAMEN 1.5 CAL 1,000 ML BAG PEG SCH (21:22)
[2021-06-15] MEDS: TUBE FEEDING WATER FLUSH PEG SCH ×6 (02:16→21:46)
[2021-06-15 06:47] LABS: INR 2.1 (0.9-1.1); Prothrombin Time 20.3 Seconds (9.0-12.0)
[2021-06-15] MEDS: LEVALBUTEROL HCL 1.25 MG/3 ML NEB NEB SCH ×2 (07:02→19:22)
[2021-06-15] MEDS: guaiFENesin 600 MG TABCR PO SCH ×2 (09:01→18:34)
[2021-06-15] MEDS: carBAMazepine 100 MG CHEW TAB PO SCH ×2 (09:01→18:34)
[2021-06-15] MEDS: lamoTRIgine 100 MG TAB PO SCH ×2 (09:05→18:34)
[2021-06-15] MEDS: DOCUSATE SODIUM SYRUP 100 MG/10 ML UDC PO SCH (09:06)
--- NOTE | 2021-06-15 10:18 | Cardiology Progress Note ---
Date of Service June 15, 2021 Assessment & Plan (1) Afib: (2) Pleural effusion, left: (3) Pulmonary edema: Plan: Continue metoprolol 37.5 mg BID. INR= 2.1 , Continue coumadin. Repeat echo performed this am, while in AF with RVR, hyperdynamic LVEF. The left pleural effusion noted on echo has increased compared to my review of echo images obtained a week ago. CXR yesterday, technically limited however left effusion present. Per interview with her mother, she has had more hand and feet swelling even before her hospital stay, left pleural effusion noted on CT of chest a week ago and likely worse with administration of IV antibiotics interim. Has chronic hyponatremia, and NaCL tablets added this admission , which is also likely a contributing factor for fluid retention. Her mental status is much improved (per family) compared to admission- back to baseline. -will order furosemide 20 mg IV Q6 hr. Has chronic suprapubic catheter. I have placed a referral to the [facility] clinic with regards to plan for mobile phlebotomy, as pt lives 1 hr away form [place] locations, and home INR machine, which is a good option, just may take time to arrange. DVT prophylaxis: has IVC filter, now also on coumadin. Admission and Anticipated Discharge Date Admission Date: June 05, 2021 Subjective Unable to obtain history from patient or subjective input, however, this am she was playing catch with her mother while in bed. She was smiling , showed me two fingers on request. Remains in atrial fibrillation / flutter. Rated controlled overnight, up to 120- 140 this am since 6 am, to 950 am, but as noted, upon investigating was playing catch, with rest, ventricular rates are back to the 110's. Review of Systems Review of Systems: ROS unobtainable. Physical Exam Physical Exam: Temp Pulse Resp BP Pulse Ox 36.9 C 73 20 102/76 92 06/14/21 04:00 06/14/21 16:00 06/14/21 07:16 06/14/21 04:00 06/14/21 07:16 Constitutional: no acute distress Respiratory: Auscultation: + diminished lung sounds (diminished BS at the bases ) Cardiovascular: Rate/Rhythm: + irregularly irregular Heart Sounds: no murmur Extremities: + edema (hands, feet , swollen) Gastrointestinal (Abdomen): normal bowel sounds, soft, nontender, no hepatosplenomegaly Results & Data ([facility]) Vital Signs (Past 12 Hours) Vital Signs Temp Pulse Pulse Pulse Resp BP BP 06/15/21 07:04 111 H 18 06/15/21 04:08 131/100 06/15/21 03:00 36.9 C 68 20 06/15/21 00:22 76 126/71 06/14/21 23:15 98 H 06/14/21 22:39 36.6 C 93 H 18 121/74 Pulse Ox 06/15/21 07:04 91 06/15/21 04:08 96 06/15/21 03:00 90 06/15/21 00:22 92 06/14/21 23:15 06/14/21 22:39 94 Laboratory Results Coagulation 06/15/21 Range/Units 06:21 PT 20.3 H (9.0-12.0) Seconds CBC 06/14/21 Range/Units 06:37 WBC 4.38 L (4.8-10.8) K/uL RBC 3.29 L (4.2-5.4) M/uL Hgb 10.6 L (12.0-16.0) g/dL Hct 30.3 L (37-47) % Plt Count 190 (130-400) K/uL Comprehensive Metabolic Panel 06/14/21 Range/Units 06:37 Sodium 128 L (136-145) mmol/L Potassium 4.3 (3.5-5.1) mmol/L Chloride 94 L (98-107) mmol/L Carbon Dioxide 29 (21-32) mmol/L BUN 22 H (7-18) mg/dl Creatinine 0.26 L (0.6-1.2) mg/dl Glucose 104 H (70-99) mg/dl Calcium 8.4 L (8.5-10.1) mg/dl Intake and Output 06/14/21 06/15/21 06/15/21 22:59 06:59 14:59 Intake Total 472.5 / 572.5 100 / 572.5 Output Total 900 / 1500 600 / 1500 Balance -427.5 / -927.5 -500 / -927.5 Intake: IV 252.5 / 252.5 Azithromycin 250 mg In Dextrose 252.5 / 252.5 5% 250 ml @ 125 mls/hr IV DAILY@[facility] Rx#:[id number] Oral 220 / 320 100 / 320 Output: Urine Amount (Catheter) 900 / 1500 600 / 1500 Suprapubic 900 / 1500 600 / 1500 Other: Other Intake Source sips Weight 94.4 kg Weight Measurement [facility] Medications Administered Current Inpatient Medications Acetaminophen (Acetaminophen 325 Mg Tab) 650 mg PEG Q4H PRN PRN Reason: Pain or Fever Stop: 07/05/21 21:20 Carbamazepine (Carbamazepine 100 Mg Chew Tab) 250 mg PO [facility] Stop: 07/12/21 16:59 Last Admin: 06/14/21 17:21 Dose: 250 mg Documented by: Carbamazepine (Carbamazepine 100 Mg Chew Tab) 250 mg PO [facility] Stop: 07/11/21 08:59 Last Admin: 06/15/21 09:01 Dose: 250 mg Documented by: Diazepam (Diazepam 5 Mg Tablet) 5 mg PO BID@0900,[facility]; Protocol Stop: 07/06/21 16:59 Last Admin: 06/14/21 17:21 Dose: 5 mg Documented by: Docusate Sodium (Docusate Sodium Syrup 100 Mg/10 Ml Udc) [facility] Stop: 07/06/21 08:59 Last Admin: 06/15/21 09:06 Dose: Not Given Documented by: Enteral Nutritional Formula (Peptamen 1.5 Nelson 1,000 Ml Bag) 1,000 ml PEG DAILY@[facility]; Protocol Stop: 07/10/21 18:59 Last Admin: 06/14/21 21:22 Dose: 1,000 ml Documented by: Guaifenesin (Guaifenesin 600 Mg Tabcr) 600 mg PO BID@0900,[facility]; Protocol Stop: 07/06/21 16:59 Last Admin: 06/15/21 09:01 Dose: 600 mg Documented by: Lorazepam (Ativan) 2 mg in 4 mls @ 4 mls/min IV Q4H PRN PRN Reason: seizure Stop: 07/05/21 21:20 Azithromycin 250 mg/ Dextrose 252.5 mls @ 125 mls/hr IV DAILY@[facility] Stop: 06/17/21 19:59 Last Infusion: 06/14/21 22:18 Dose: Infused Documented by: Furosemide 20 mg/ Syringe 2 mls @ 4 mls/min IV Q6H [facility] Stop: 07/15/21 10:59 Lamotrigine (Lamotrigine 100 Mg Tab) 100 mg PO BID@0900,1700 [facility]; Protocol Stop: 07/06/21 16:59 Last Admin: 06/15/21 09:05 Dose: 100 mg Documented by: Lansoprazole (Lansoprazole 30 Mg Soltab) 30 mg NG DAILY [facility] Stop: 07/11/21 09:29 Last Admin: 06/14/21 09:10 Dose: 30 mg Documented by: Levalbuterol HCl (Levalbuterol Hcl 0.63 Mg/3 Ml Neb) 0.63 mg INH Q8 PRN PRN Reason: Wheezing Stop: 07/05/21 21:20 Levalbuterol HCl (Levalbuterol Hcl 1.25 Mg/3 Ml Neb) 1.25 mg NEB BIDR [facility] Stop: 07/12/21 18:59 Last Admin: 06/15/21 07:02 Dose: 1.25 mg Documented by: Levothyroxine Sodium (Levothyroxine Sodium 175 Mcg Tablet) 175 mcg PEG DAILY@2100 [facility] Stop: 07/05/21 21:20 Last Admin: 06/14/21 21:17 Dose: 175 mcg Documented by: Magnesium Oxide (Magnesium Oxide 400 Mg Tab) 400 mg PO DAILY@0730 [facility] Stop: 07/07/21 07:29 Last Admin: 06/14/21 09:10 Dose: 400 mg Documented by: Metoprolol Tartrate (Metoprolol Tartrate 25 Mg Tab) 37.5 mg PO BID [facility] Stop: 07/13/21 20:59 Last Admin: 06/14/21 20:07 Dose: 37.5 mg Documented by: Multivitamins (Multivitamin Tab) 1 tab PO QAM [facility] Stop: 07/06/21 08:59 Last Admin: 06/14/21 09:09 Dose: 1 tab Documented by: Ondansetron HCl (Ondansetron Inj 2 Mg/Ml 2 Ml Vial) 4 mg IV Q6H PRN PRN Reason: Nausea Stop: 07/05/21 21:20 Oxybutynin Chloride (Oxybutynin Chloride Xl 5 Mg Tabcr) 10 mg PO DAILY PRN PRN Reason: Catheter change/Bladder Spasm Stop: 07/05/21 21:20 Last Admin: 06/10/21 08:29 Dose: 10 mg Documented by: Potassium Chloride (Potassium Chloride 20 Meq/15 Ml Udc) 20 meq PO BID [facility] Stop: 07/15/21 20:59 Sodium Chloride (Sodium Chloride 1 Gm Tablet) 1 gm PO BID [facility] Stop: 07/07/21 08:59 Last Admin: 06/14/21 20:07 Dose: 1 gm Documented by: Sterile Water (Tube Feeding Water Flush) 30 ml PEG Q4H [facility] Stop: 07/10/21 17:59 Last Admin: 06/15/21 06:11 Dose: 30 ml Documented by: Valproic Acid (Valproic Acid 50 Mg/Ml Udp) 625 mg PO BID [facility] Stop: 07/10/21 20:59 Last Admin: 06/14/21 20:07 Dose: 625 mg Documented by: Warfarin Sodium (Warfarin Sod 2.5 Mg Tab) 2.5 mg PO DAILY@1600 [facility] Stop: 07/13/21 15:59 Last Admin: 06/14/21 15:24 Dose: 2.5 mg Documented by: (1) Pulmonary edema Chronicity: acute Qualified Code(s): J81.0 - Acute pulmonary edema
[2021-06-15] MEDS: FUROSEMIDE 20 MG in SYRINGE 0 ML IV SCH ×2 (11:22→18:35)
[2021-06-15] MEDS: MAGNESIUM OXIDE 400 MG TAB PO SCH (11:22)
[2021-06-15] MEDS: diazePAM 5 MG TABLET PO SCH ×2 (11:22→18:34)
[2021-06-15] MEDS: LANSOPRAZOLE 30 MG SOLTAB NG SCH (11:23)
[2021-06-15] MEDS: MULTIVITAMIN TAB PO SCH (11:23)
[2021-06-15] MEDS: METOPROLOL TARTRATE 25 MG TAB PO SCH (11:23)
[2021-06-15] MEDS: SODIUM CHLORIDE 1 GM TABLET PO SCH ×2 (11:23→21:45)
[2021-06-15] MEDS: VALPROIC ACID 50 MG/ML UDP PO SCH ×2 (11:24→21:44)
--- NOTE | 2021-06-15 16:19 | Fluoroscopy Report ---
FL video swallow HISTORY: assess for aspiration TECHNIQUE: Video fluoroscopic evaluation of swallowing was performed in the AP and lateral projection s by the speech pathology staff. The patient is fed nectar-thick and thin liquid barium, a barium coa sonja wafer, and barium pudding. FLUOROSCOPY TIME: 2.1 minutes. NUMBER OF FLUOROSCOPY IMAGES: 460 COMPARISON STUDY: None. FINDINGS: No definite aspiration is seen however evaluation is limited because mid and distal aspect of esophag us is obscured by patient's shoulder. IMPRESSION: 1. No definite aspiration identified. Limited exam. 2. Please see the speech pathologist report for detailed findings and recommendations. ACT 112: Negative or not required by law. The above report was generated using voice recognition software. It may contain grammatical, syntax o r spelling errors. Electronically signed by: Anuradha Lisa DO 06/15/2021 4:18 PM
[2021-06-15] MEDS: WARFARIN SOD 2.5 MG TAB PO SCH (18:34)
[2021-06-15] MEDS: PROSOURCE NO CARB 30 ML/PKT PEG SCH (18:35)
[2021-06-15] MEDS: PEPTAMEN 1.5 CAL 1,000 ML BAG PEG SCH (18:35)
[2021-06-15] MEDS: LEVOTHYROXINE SODIUM 175 MCG TABLET PEG SCH (20:00)
[2021-06-15] MEDS: AZITHROMYCIN 250 MG in DEXTROSE 5% 250 ML IV SCH (20:05)
[2021-06-15] MEDS: POTASSIUM CHLORIDE 20 MEQ/15 ML UDC PO SCH (21:44)
[2021-06-15] MEDS: METOPROLOL TARTRATE 50 MG TAB PO SCH (21:46)
--- NOTE | 2021-06-15 22:12 | Hospitalist Progress Note ---
Date of Service June 15, 2021 Assessment & Plan (1) Infectious encephalopathy: Plan: Patient now considered to have metabolic encephalopathy from multifocal pneumonia likely concern for aspiration pneumonia. Her initial antibiotic choice was tailored to a Enterococcus in her urine and a ESBL Klebsiella. There was some concern that the Invanz was creating issues with her seizure medications. Her urine did grow 20,000 colonies of ESBL Klebsiella but no Enterococcus. Subsequently to the multifocal pneumonia we are going to change her antibiotics to cover both MRSA of which she has a nasal swab positive and atypical with azithromycin and vancomycin and gentamicin. Because these antibiotics may affect her Tegretol level and her level is at the upper lip and of normal we will skip a Tegretol level tonight reduce her dose to 250 twice daily. Repeat nasal swab was negative will stopped vancomycin 06/11, will complete 7 days of total for Gentamicin (06/06-06/13) and continue azithromycin (06/10-. Continue Chest vest , pt uses at home, and xopenex Given aspiration concern will consult SLT to reassess as could have all her feeds via PEG (insurance has previously denied as she could swallow) if unasfe to swallow. (2) Afib: Plan: A. fib, now A Flutter, likely spurred upon her metabolic stressors of the multifocal pneumonia. Continues on metoprolol, anticoagulation with warfarin. Flutter appears much faster today. Back in 140s after 6am this morning. Appreciate cardiology management. (3) Acute hyponatremia: Plan: Patient remains with hyponatremia near normal range (4) Tegretol toxicity: Plan: Patient Tegretol toxicity. Reportedly her mother states it works best with near the upper end of the therapeutic window follow at 250mg bid and increase if needed (5) Generalized epilepsy: Plan: Valproic acid and carbamazepine or use valproic acid remains low this had been intermittently augmented through this stay with 500 mg additional daily (6) Mental retardation: Plan: Patient with functional quadriplegia (7) Tracheostomy tube present: (8) Moderate malnutrition: Plan: There has been some persistent concern of aspiration with the mother certainly her multifocal pneumonia could be based upon chronic aspiration. Patient is going to have some augmentation of her nutrition based upon nocturnal enteral feedings via her PEG tube and being allowed pleasure eating Consult SLT as above (9) Pulmonary edema: Plan: This was seen on presentation she did receive a dose of Lasix echocardiogram shows preserved EF (10) DVT prophylaxis: Plan: Patient now off therapeutic heparin inr is therapeutic with coumadin Admission and Anticipated Discharge Date Admission Date: June 05, 2021 Subjective Unable to obtain history/subjective from patient. Mother reports closer to her b aseline. Coughing up less. Acting more like her normal self. No significant shortness of breath. Review of Systems Review of Systems: Unobtainable due to cognitive status Physical Exam Constitutional: + not well nourished and no acute distress Respiratory: normal respiratory effort, lungs clear to auscultation + cough Cardiovascular: Rate/Rhythm: + tachycardic and + irregularly irregular Vessels: no JVD Extremities: normal capillary refill and + pedal edema (1+ b/l pitting) Gastrointestinal (Abdomen): Percussion/Palpation: abdomen soft; abdomen nontender Neurologic: awake Psychiatric: Orientation: alert Results & Data Results & Data ([facility]) Vital Signs (Past 12 Hours) Vital Signs Temp Pulse Resp BP BP Pulse Ox 06/15/21 19:24 110 H 94 06/15/21 19:05 36.5 C 133 H 20 106/83 91 06/15/21 17:01 36.5 C 85 18 113/93 93 PG Care Time/CCT Total # of Minutes Spent Total Time Spent with Patient: Total time spent is greater than 50% in coordination of care (as documented) at patient's floor/unit and/or counseling patient: Coding Level of Care Code 92687 Subseq Hosp Care Lvl 2 Diagnoses Infectious encephalopathy G93.49; B99.9 Afib I48.91 Acute hyponatremia E87.1 Tegretol toxicity T42.1X1A Generalized epilepsy G40.309 Mental retardation F79 Tracheostomy tube present Z93.0 Moderate malnutrition E44.0 Pulmonary edema J81.0 Chronicity: acute DVT prophylaxis Z29.9 (1) Pulmonary edema Chronicity: acute Qualified Code(s): J81.0 - Acute pulmonary edema
[2021-06-16] MEDS: FUROSEMIDE 20 MG in SYRINGE 0 ML IV SCH ×4 (00:43→17:59)
[2021-06-16] MEDS: TUBE FEEDING WATER FLUSH PEG SCH ×6 (00:44→22:19)
[2021-06-16 07:12] LABS: INR 1.8 (0.9-1.1); Prothrombin Time 17.3 Seconds (9.0-12.0)
[2021-06-16] MEDS: LEVALBUTEROL HCL 1.25 MG/3 ML NEB NEB SCH ×2 (07:16→19:28)
[2021-06-16 07:34] LABS: Blood Urea Nitrogen 21 mg/dl (7-18); Calcium 8.8 mg/dl (8.5-10.1); Carbon Dioxide 32 mmol/L (21-32); Chloride 91 mmol/L (98-107); Glucose 98 mg/dl (70-99); Potassium 4.1 mmol/L (3.5-5.1); Sodium 126 mmol/L (136-145)
[2021-06-16 08:08] LABS: BUN Creatinine Ratio 64.4 (10-20); Creatinine Clr Calc Pharmacy 206.8 ml/min; Est GFR (African American) > 150.0 ml/min; Est GFR (Non-African American) 131.2 ml/min
[2021-06-16] MEDS ORDERED: WARFARIN SOD 5 MG TAB PO ONE (08:46)
[2021-06-16] MEDS: diazePAM 5 MG TABLET PO SCH ×2 (08:52→17:59)
[2021-06-16] MEDS: POTASSIUM CHLORIDE 20 MEQ/15 ML UDC PO SCH ×2 (08:53→21:32)
[2021-06-16] MEDS: MULTIVITAMIN TAB PO SCH (08:53)
[2021-06-16] MEDS: METOPROLOL TARTRATE 50 MG TAB PO SCH ×2 (08:53→21:32)
[2021-06-16] MEDS: VALPROIC ACID 50 MG/ML UDP PO SCH ×2 (08:53→21:30)
[2021-06-16] MEDS: SODIUM CHLORIDE 1 GM TABLET PO SCH ×2 (08:53→21:32)
[2021-06-16] MEDS: LANSOPRAZOLE 30 MG SOLTAB NG SCH (08:54)
[2021-06-16] MEDS: lamoTRIgine 100 MG TAB PO SCH ×2 (08:54→17:59)
[2021-06-16] MEDS: guaiFENesin 600 MG TABCR PO SCH ×2 (08:54→17:59)
[2021-06-16] MEDS: MAGNESIUM OXIDE 400 MG TAB PO SCH (08:55)
[2021-06-16] MEDS: carBAMazepine 100 MG CHEW TAB PO SCH ×2 (08:55→17:59)
[2021-06-16] MEDS: DOCUSATE SODIUM SYRUP 100 MG/10 ML UDC PO SCH (08:56)
--- NOTE | 2021-06-16 10:37 | Cardiology Progress Note ---
Date of Service June 16, 2021 Assessment & Plan (1) Afib: (2) Pleural effusion, left: (3) Pulmonary edema: Plan: Telemetry reveals ongoing atrial fibrillation / atrial flutter with rates in the range of 85-100 bpm this am while awake, and in the 60s overnight whiles sleeping which is improved compared to yesterday, having received higher dose of metoprolol starting pm of 06/15/21, at 2100. INR= 1.8 , Continue coumadin. Increase dose to 5 mg today, and repeat INR Has chronic hyponatremia, and NaCL tablets added this admission , which is also likely a contributing factor for fluid retention. Has chronic hyponatremia with sodium level 128 down to 126 mmol / l with increase in furosemide dose. I think this is acceptable and will continue furosemide 20 mg IV every 6hrs. Net negative 1.9 L in last 24 hours. Will update magnesium level and EKG. If findings stable, will proceed with a trial of Flecainide. Flecainide does not interact with Depakote or Tegretal. No structural heart disease on recent echo. She is on Azithromycin, but QT previously normal. Admission and Anticipated Discharge Date Admission Date: June 05, 2021 Subjective Patient seen in follow up. She is alert and interactive again today, like she was on 06/15/22 , and per her mother, her mental status is trending toward her baseline. Review of Systems Review of Systems: Unobtainable due to cognitive status Physical Exam Physical Exam: Temp Pulse Resp BP Pulse Ox 36.9 C 73 20 102/76 92 06/14/21 04:00 06/14/21 16:00 06/14/21 07:16 06/14/21 04:00 06/14/21 07:16 Constitutional: no acute distress Respiratory: Auscultation: + diminished lung sounds (diminished BS at the bases ) Cardiovascular: Rate/Rhythm: + irregularly irregular Heart Sounds: no murmur Extremities: + edema (hands, feet , swollen) Gastrointestinal (Abdomen): normal bowel sounds, soft, nontender, no hepatosplenomegaly Results & Data ([facility]) Vital Signs (Past 12 Hours) Vital Signs Temp Pulse Pulse Pulse Resp BP Pulse Ox 06/16/21 07:51 92 H 06/16/21 07:32 36.7 C 93 H 21 97/79 L 94 06/16/21 07:19 110 H 18 91 06/16/21 06:11 92 H 107/80 92 06/16/21 03:48 36.6 C 67 20 92/62 L 93 06/16/21 00:40 36.5 C 64 14 93/59 L 98 (1) Pulmonary edema Chronicity: acute Qualified Code(s): J81.0 - Acute pulmonary edema
[2021-06-16] MEDS ORDERED: FLECAINIDE ACETATE 100 MG TABLET PO ONE (11:18)
--- NOTE | 2021-06-16 15:08 | Electrocardiogram Report ---
Test Reason : Blood Pressure : / mmHG Vent. Rate : 066 BPM Atrial Rate : 249 BPM P-R Int : 000 ms QRS Dur : 076 ms QT Int : 438 ms P-R-T Axes : 092 055 089 degrees QTc Int : 459 ms Atrial flutter with variable A-V block Abnormal ECG When compared with ECG of 12-JUN-2021 06:35, Vent. rate has decreased BY 38 BPM Otherwise no significant change Confirmed by Mak Horton ([id number]) on 06/16/2021 3:08:09 PM Referred By: Jt Liu Confirmed By:Mak Horton
--- NOTE | 2021-06-16 16:25 | Pulmonology Progress Note ---
Date of Service June 16, 2021 Assessment & Plan (1) Hypoxia: Plan: 50-year-old female with a past medical history of developmental delay, chronic seizures, tracheostomy placement 6 years ago status post spinal cord injury resulting in paraplegia presenting to the hospital due to concerns of urinary tract infection and found to have acute respiratory failure with hypoxia. Acute hypoxemic respiratory failure: Combination of pneumonia, CHF and hypoventilation due to obesity/weakness. Pneumonia is improving. Recommend total of 7 days of antibiotics. Hypoxia has improved and she is currently saturating above 90% on room air. Left pleural effusion: Etiology unclear, but likely related to volume overload. Agree with diuretic therapy. Thoracentesis will prove difficult given the patient's developmental delay, body habitus and anticoagulation status. Weak cough secondary to paraplegia and acute illness: Intolerant of CoughAssist. Tolerating vest therapy 3 times daily. Cough is improving in strength. Morbid obesity: Bicarbonate levels are elevated. ABG is not suggestive of hypercapnia or OHS at this time. Consider outpatient polysomnography to evaluate for sleep disordered breathing. Weight loss is advised. Moderate malnutrition: Patient's albumin is low. This can cause third spacing and pulmonary edema. This is likely also contributing to her weakness. Network Relations Consultant following the patient. Pulmonary will follow from the periphery. Please call with questions. Thank you for the consultation. (2) Pleural effusion, left: (3) Paraplegia: (4) Pulmonary edema: Chronicity: acute Qualified Code(s): J81.0 - Acute pulmonary edema (5) Moderate malnutrition: (6) Weak cough: (7) Obesity: Admission and Anticipated Discharge Date Admission Date: June 05, 2021 Subjective Patient seen and examined. Nonverbal at baseline. She is smiling. She is surrounded by her mother and some family friends. She is currently saturating 92% on room air. Heart rate is in the 90s. Review of Systems Review of Systems: No acute events. Unable to obtain review of systems given the patient's nonverbal baseline and developmental delay. Physical Exam Constitutional: Obese appearing. No apparent distress. Eyes: PERRL, conjunctivae normal, anicteric sclerae ENMT: Tracheostomy in place. Neck: normal visual inspection and + thick neck Respiratory: Diminished lung sounds bilaterally. No wheezes. Cardiovascular: Rate/Rhythm: + tachycardic and + irregularly irregular Heart Sounds: normal S1 and normal S2 Skin: no rashes, warm and dry Neurologic: PERRL, EOMI, accommodation nl, no face palsy, no dysarthria Psychiatric: A+Ox3, euthymic affect Results & Data Results & Data ([facility]) Vital Signs (Past 12 Hours) Vital Signs Temp Pulse Pulse Pulse Resp BP Pulse Ox 06/16/21 15:39 98.1 F 82 21 97/70 L 92 06/16/21 10:45 97.7 F 96 H 21 103/76 92 06/16/21 07:51 92 H 06/16/21 07:32 98.1 F 93 H 21 97/79 L 94 06/16/21 07:19 110 H 18 91 06/16/21 06:11 92 H 107/80 92 Vital signs, labs and imaging personally reviewed PG Care Time/CCT Total # of Minutes Spent Total Time Spent with Patient: Total time spent is greater than 50% in coordination of care (as documented) at patient's floor/unit and/or counseling patient: Coding Level of Care Code 49336 Subseq Hosp Care Lvl 2 Diagnoses Hypoxia R09.02 Paraplegia G82.20 Pulmonary edema J81.0 Chronicity: acute Moderate malnutrition E44.0 Weak cough R05 Obesity E66.9 Pleural effusion, left J90
[2021-06-16] MEDS: PROSOURCE NO CARB 30 ML/PKT PEG SCH (19:55)
[2021-06-16] MEDS: AZITHROMYCIN 250 MG in DEXTROSE 5% 250 ML IV SCH (19:55)
[2021-06-16] MEDS: LEVOTHYROXINE SODIUM 175 MCG TABLET PEG SCH (19:55)
[2021-06-16] MEDS: PEPTAMEN 1.5 CAL 1,000 ML BAG PEG SCH (20:07)
--- NOTE | 2021-06-16 22:27 | Hospitalist Progress Note ---
Date of Service June 16, 2021 Assessment & Plan (1) Infectious encephalopathy: Plan: Now resolved. Patient now considered to have metabolic encephalopathy from multifocal pneumonia likely concern for aspiration pneumonia. Her initial antibiotic choice was tailored to a Enterococcus in her urine and a ESBL Klebsiella. There was some concern that the Invanz was creating issues with her seizure medications. Her urine did grow 20,000 colonies of ESBL Klebsiella but no Enterococcus. Subsequently to the multifocal pneumonia we are going to change her antibiotics to cover both MRSA of which she has a nasal swab positive and atypical with azithromycin and vancomycin and gentamicin. Because these antibiotics may affect her Tegretol level and her level is at the upper lip and of normal we will skip a Tegretol level tonight reduce her dose to 250 twice daily. Repeat nasal swab was negative will stopped vancomycin 06/11, will complete 7 days of total for Gentamicin (06/06-06/13) and continue azithromycin (06/10-06/16). Continue Chest vest , pt uses at home, and xopenex Appreciate SLT recommendations (2) Afib: Plan: A. fib, now A Flutter, likely spurred upon her metabolic stressors of the multifocal pneumonia. Appreciate cardiology management of this. Starting flecainide. Warfarin management per cardiology, INR 1.8 today. (3) Acute hyponatremia: Plan: Na now decreased to 126 with lasix. Continue to monitor with continued lasix dosing. Pleural effusion noted on echocardiogram. (4) Tegretol toxicity: Plan: Patient Tegretol toxicity. Reportedly her mother states it works best with near the upper end of the therapeutic window follow at 250mg bid and increase if needed (5) Generalized epilepsy: Plan: Valproic acid and carbamazepine or use valproic acid remains low this had been intermittently augmented through this stay with 500 mg additional daily (6) Mental retardation: Plan: Patient with functional quadriplegia (7) Tracheostomy tube present: (8) Moderate malnutrition: Plan: There has been some persistent concern of aspiration with the mother certainly her multifocal pneumonia could be based upon chronic aspiration. Patient is going to have some augmentation of her nutrition based upon nocturnal enteral feedings via her PEG tube and being allowed pleasure eating Appreciate SLT recommendations, remains on tube feeding at night (9) Pulmonary edema: Plan: Appreciate ongoing lasix dosing per cardiology recommendations, continue to monitor hyponatremia with this. (10) DVT prophylaxis: Plan: Patient now off therapeutic heparin inr is therapeutic with coumadin Admission and Anticipated Discharge Date Admission Date: June 05, 2021 Subjective Unable to obtain history from patient. Subjective with mother at bedside. Cough mostly resolved today with diuresis yesterday. Na decreased 126. Review of Systems Review of Systems: Unobtainable due to cognitive status Physical Exam Constitutional: + not well nourished and no acute distress Respiratory: normal respiratory effort, lungs clear to auscultation no cough Cardiovascular: Rate/Rhythm: + tachycardic and + irregularly irregular Vessels: no JVD Extremities: normal capillary refill and + pedal edema (1+ b/l pitting) Neurologic: awake Psychiatric: Orientation: alert Results & Data Results & Data ([facility]) Vital Signs (Past 12 Hours) Vital Signs Temp Pulse Pulse Resp BP Pulse Ox 06/16/21 19:34 114 H 16 95 06/16/21 18:58 36.4 C L 85 20 101/58 L 90 06/16/21 16:00 98 H 06/16/21 15:39 36.7 C 82 21 97/70 L 92 06/16/21 10:45 36.5 C 96 H 21 103/76 92 PG Care Time/CCT Total # of Minutes Spent Total Time Spent with Patient: Total time spent is greater than 50% in coordination of care (as documented) at patient's floor/unit and/or counseling patient: Coding Level of Care Code 42127 Subseq Hosp Care Lvl 2 Diagnoses Infectious encephalopathy G93.49; B99.9 Afib I48.91 Acute hyponatremia E87.1 Tegretol toxicity T42.1X1A Generalized epilepsy G40.309 Mental retardation F79 Tracheostomy tube present Z93.0 Moderate malnutrition E44.0 Pulmonary edema J81.0 Chronicity: acute DVT prophylaxis Z29.9 (1) Pulmonary edema Chronicity: acute Qualified Code(s): J81.0 - Acute pulmonary edema
[2021-06-17] MEDS: FUROSEMIDE 20 MG in SYRINGE 0 ML IV SCH ×5 (00:14→23:00)
[2021-06-17] MEDS: TUBE FEEDING WATER FLUSH PEG SCH ×6 (01:49→21:27)
[2021-06-17] MEDS: LEVALBUTEROL HCL 1.25 MG/3 ML NEB NEB SCH ×2 (07:20→19:20)
[2021-06-17 07:28] LABS: Hematocrit (blood only) 34.2 % (37-47); Hemoglobin 11.7 g/dL (12.0-16.0); Mean Corpuscular Hemoglobin 31.9 pg (25-34); Mean Corpuscular Hgb Conc 34.2 g/dL (32-36); Mean Corpuscular Volume 93.2 fL (80-100); Mean Platelet Volume 8.9 fL (7.4-10.4); Platelet Count 329 K/uL (130-400); RDW Coefficient of Variation 14.5 % (11.5-14.5); RDW Standard Deviation 48.5 fL (36.4-46.3); Red Blood Count 3.67 M/uL (4.2-5.4); White Blood Count 5.48 K/uL (4.8-10.8)
[2021-06-17 07:42] LABS: INR 2.2 (0.9-1.1); Prothrombin Time 21.2 Seconds (9.0-12.0)
[2021-06-17 07:49] LABS: BUN Creatinine Ratio 55.9 (10-20); Creatinine Clr Calc Pharmacy 173.2 ml/min; Est GFR (African American) 143.9 ml/min; Est GFR (Non-African American) 124.2 ml/min; Potassium 3.7 mmol/L (3.5-5.1)
[2021-06-17] MEDS: MAGNESIUM OXIDE 400 MG TAB PO SCH (08:21)
[2021-06-17] MEDS: diazePAM 5 MG TABLET PO SCH ×2 (08:21→16:26)
[2021-06-17] MEDS: POTASSIUM CHLORIDE 20 MEQ/15 ML UDC PO SCH ×3 (08:22→21:27)
[2021-06-17] MEDS: LANSOPRAZOLE 30 MG SOLTAB NG SCH (08:26)
[2021-06-17] MEDS: MULTIVITAMIN TAB PO SCH (08:26)
[2021-06-17] MEDS: guaiFENesin 600 MG TABCR PO SCH ×2 (08:27→16:29)
[2021-06-17] MEDS: VALPROIC ACID 50 MG/ML UDP PO SCH ×2 (08:30→21:25)
[2021-06-17] MEDS: METOPROLOL TARTRATE 50 MG TAB PO SCH ×2 (08:33→21:26)
[2021-06-17] MEDS: SODIUM CHLORIDE 1 GM TABLET PO SCH ×2 (08:33→21:25)
[2021-06-17] MEDS: carBAMazepine 100 MG CHEW TAB PO SCH ×2 (08:34→16:27)
[2021-06-17] MEDS: DOCUSATE SODIUM SYRUP 100 MG/10 ML UDC PO SCH (08:36)
[2021-06-17] MEDS: lamoTRIgine 100 MG TAB PO SCH ×2 (08:36→16:27)
[2021-06-17] MEDS ORDERED: FLECAINIDE ACETATE 100 MG TABLET PO ONE ×2 (08:48→11:48)
--- NOTE | 2021-06-17 11:26 | Hospitalist Progress Note ---
Date of Service June 17, 2021 Assessment & Plan (1) Infectious encephalopathy: Plan: Now resolved. Patient now considered to have metabolic encephalopathy from multifocal pneumonia likely concern for aspiration pneumonia. Her initial antibiotic choice was tailored to a Enterococcus in her urine and a ESBL Klebsiella. There was some concern that the Invanz was creating issues with her seizure medications. Her urine did grow 20,000 colonies of ESBL Klebsiella but no Enterococcus. Subsequently to the multifocal pneumonia we are going to change her antibiotics to cover both MRSA of which she has a nasal swab positive and atypical with azithromycin and vancomycin and gentamicin. Because these antibiotics may affect her Tegretol level and her level is at the upper lip and of normal we will skip a Tegretol level tonight reduce her dose to 250 twice daily. Repeat nasal swab was negative will stopped vancomycin 06/11, will complete 7 days of total for Gentamicin (06/06-06/13) and now finished azithromycin (06/10- 06/16). Continue Chest vest , pt uses at home, and xopenex Appreciate SLT recommendations (2) Afib: Plan: A. fib, now A Flutter, likely spurred upon her metabolic stressors of the multifocal pneumonia. Appreciate cardiology management of this. Starting flecainide. Warfarin management per cardiology, INR 2.2 today. (3) Acute hyponatremia: Plan: Na now decreased to 129 with lasix. Continue to monitor with continued lasix dosing. Pleural effusion noted on echocardiogram. (4) Tegretol toxicity: Plan: Patient Tegretol toxicity. Reportedly her mother states it works best with near the upper end of the therapeutic window follow at 250mg bid and increase if needed (5) Generalized epilepsy: Plan: Valproic acid and carbamazepine or use valproic acid remains low this had been intermittently augmented through this stay with 500 mg additional daily Consult neurology given significant number of seizures today. No known interaction with flecainide. Give anti-seizure medications via PEG to make sure she is absorbing these. (6) Mental retardation: Plan: Patient with functional quadriplegia (7) Tracheostomy tube present: (8) Moderate malnutrition: Plan: There has been some persistent concern of aspiration with the mother certainly her multifocal pneumonia could be based upon chronic aspiration. Patient is going to have some augmentation of her nutrition based upon nocturnal enteral feedings via her PEG tube and being allowed pleasure eating Appreciate SLT recommendations, remains on tube feeding at night (9) Pulmonary edema: Plan: Appreciate ongoing lasix dosing per cardiology recommendations, continue to monitor hyponatremia with this. Mostly resolved from CXR today. (10) DVT prophylaxis: Plan: Patient now off therapeutic heparin inr is therapeutic with coumadin Admission and Anticipated Discharge Date Admission Date: June 05, 2021 Subjective Patient having multiple seizures this morning. Her mother reports this is not unusual for her and usually has this many once a week. Taking anti-seizure medications by mouth rather than via her PEG tube. Having poor sleep. Breathing worse after seizures but again this is not unusual for her. Remains with atrial flutter with rapid ventricular rate despite flecainide use Review of Systems Review of Systems: Unobtainable due to cognitive status Physical Exam Constitutional: + not well nourished and no acute distress Respiratory: normal respiratory effort, lungs clear to auscultation no cough Cardiovascular: Rate/Rhythm: + tachycardic and + irregularly irregular Vessels: no JVD Extremities: normal capillary refill and + pedal edema (1+ b/l pitting) Gastrointestinal (Abdomen): Percussion/Palpation: abdomen soft; abdomen nontender Neurologic: awake Psychiatric: Orientation: alert Results & Data Results & Data ([facility]) Vital Signs (Past 12 Hours) Vital Signs Temp Pulse Pulse Resp BP Pulse Ox 06/17/21 09:00 134 H 06/17/21 06:03 134 H 114/83 93 06/17/21 03:25 93 06/17/21 03:15 36.3 C L 99 H 18 97/69 L 89 L 06/17/21 00:12 96/68 L 06/16/21 23:47 87 PG Care Time/CCT Total # of Minutes Spent Total Time Spent with Patient: Total time spent is greater than 50% in coordination of care (as documented) at patient's floor/unit and/or counseling patient: Coding Level of Care Code 90807 Subseq Hosp Care Lvl 2 Diagnoses Infectious encephalopathy G93.49; B99.9 Afib I48.91 Acute hyponatremia E87.1 Tegretol toxicity T42.1X1A Generalized epilepsy G40.309 Mental retardation F79 Tracheostomy tube present Z93.0 Moderate malnutrition E44.0 Pulmonary edema J81.0 Chronicity: acute DVT prophylaxis Z29.9 (1) Pulmonary edema Chronicity: acute Qualified Code(s): J81.0 - Acute pulmonary edema
--- NOTE | 2021-06-17 12:11 | Cardiology Progress Note ---
Date of Service June 17, 2021 Assessment & Plan (1) Afib: (2) Pleural effusion, left: (3) Pulmonary edema: Plan: Diagnostics: 06/17/2021, hemoglobin 11.7, platelet count 329, INR 2.2, sodium 129 (improved compared to 126 yesterday) creatinine 0.39, magnesium 2 mg/dL. Strep prophylaxis: Continue Coumadin, received 5 mg on 06/16/2021, having been on 2.5 mg daily prior to that, will change dose to 3 mg daily as of tomorrow 06/18/2021, and repeat INR in a.m. 06/18/2021. Rate control: Continue metoprolol tartrate 50 mg twice daily. Tolerated trial of flecainide 50 mg x 1 dose yesterday. And an additional 100 mg flecainide as administered this morning 946.Will proceed with another dose of 100 mg now and will determine maintenance dose later today. I believe the benefits of proceeding with flecainide in terms of rhythm control strategy outweigh the risks. She is on azithromycin, but her rhythm has been stable without concerns of QT prolongation on recent EKG, and her potassium has been maintained, with plan supplementation today, magnesium level normal. Her echocardiogram performed previously revealed normal myocardial thickness, normal LVEF, no evidence of structural heart disease. With regards to her volume overload. I do not think her fluid retention is due to underlying structural heart disease, with echocardiogram having been performed earlier this hospital stay: Sinus rhythm normal LVEF, no significant valvular disease, and normal diastolic indices. Her volume overload is likely related to multiple noncardiac issues including Baseline low albumin level, difficulty with regards to mobilizing fluid with her neurogenic bladder, and recently administration of IV medications. She has chronic hyponatremia, and NaCL tablets added this admission , which is also likely a contributing factor for fluid retention. Sodium levels stable today. Continue furosemide 20 mg IV every 6 hours (has suprapubic catheter) with noted 3.2 L of urine output in the last 24 hours, net balance -2.8 L. Continue potassium chloride elixir, increased dose to 20 mg 3 times daily while being diuresed. As noted, there are issues with regards to the complex pharmacology of her chronic seizure medications, treatment with antibiotics, and now her cardiac medications. Her treatment Tegretol prevents her from being a candidate for treatment with the direct oral anticoagulant agents such as Xarelto, Pradaxa, and Eliquis, as Tegretol lowers the effectiveness of these medications in terms of stroke prophylaxis. While Lovenox does not interact with her other medications, this is not ideal, as dosing is difficult in terms of maintaining a "therapeutic dose "that would make us feel confident with regards to keeping her within a therapeutic level with a burst for stroke prophylaxis of atrial fibrillation. Coumadin does interact, but we can monitor the levels. Patient however lives about an hour away, and outpatient monitoring is likely to prove to be complex. Her closest facility is a [facility] in [place]. A referral has already been placed with regards to the [facility] coagulation clinic as an outpatient. Working plan is for her to have her INR levels done locally at [facility], and perhaps a home INR machine-ap plication for the machine is in process. (4) Generalized epilepsy: Plan: Patient's mother describes episodes this morning is her typical episodes. Recent Depakote level 2 days ago, and Tegretol level 3 days ago were therapeutic. Her Tegretol level on 06/14/2021 was 8.7, and for her mother, she typically has a goal of 10 mcg/mL. This medication is typically the 1 has been most effective in terms of preventing her seizure episodes. Will defer adjustments to the hospital service. DVT prophylaxis: has an IVC filter, and is also now on coumadin. A repeat CBC, CMP, magnesium level, and EKG have been requested for 06/18/2021. Dr Nix assuming rounding on 06/18/21. Admission and Anticipated Discharge Date Admission Date: June 05, 2021 Subjective Patient seen in cardiology follow-up of ongoing issues of persistent atrial flutter/atrial fibrillation, volume overload with left pleural effusion. Her mother, Tali, remains at her bedside as she has been staying with her in the hospital. Her father, Pola, typically visits in the afternoon. Overnight events discussed with her nurse this morning. For the most part, persistent atrial flutter ranging from anywhere from 60bpm to 140 bpm noted. Thi s morning, patient had several of her typical seizure episodes. Tali tells me that these are typically characterized by noticing a change in her respirations and posturing with her hands. She performed these activities today and was also noted to have transient increased heart rate up to 180 bpm. She had several brief episodes. The longest of which lasted about a minute and a half. Post episodes, she is more lethargic this morning, but is waking up, and is responsive to my voice. Per my discussion with her mother, she may have several episodes in a day at home, but has been doing well for the last few months. Review of Systems Review of Systems: ROS unobtainable. Physical Exam Physical Exam: Temp Pulse Resp BP Pulse Ox 36.9 C 73 20 102/76 92 06/14/21 04:00 06/14/21 16:00 06/14/21 07:16 06/14/21 04:00 06/14/21 07:16 Constitutional: no acute distress Respiratory: Auscultation: + diminished lung sounds (diminished BS at the bases ) Cardiovascular: Rate/Rhythm: + irregularly irregular Heart Sounds: no murmur Extremities: + edema (hands, feet , swollen) Gastrointestinal (Abdomen): normal bowel sounds, soft, nontender, no hepatosplenomegaly Results & Data ([facility]) Vital Signs (Past 12 Hours) Vital Signs Temp Pulse Pulse Resp BP Pulse Ox 06/17/21 09:00 134 H 06/17/21 06:03 134 H 114/83 93 06/17/21 03:25 93 06/17/21 03:15 36.3 C L 99 H 18 97/69 L 89 L 06/17/21 00:12 96/68 L Laboratory Results Coagulation 06/17/21 Range/Units 07:01 PT 21.2 H (9.0-12.0) Seconds CBC 06/17/21 Range/Units 07:01 WBC 5.48 (4.8-10.8) K/uL RBC 3.67 L (4.2-5.4) M/uL Hgb 11.7 L (12.0-16.0) g/dL Hct 34.2 L (37-47) % Plt Count 329 (130-400) K/uL Comprehensive Metabolic Panel 06/17/21 Range/Units 07:01 Sodium 129 L (136-145) mmol/L Potassium 3.7 (3.5-5.1) mmol/L Chloride 90 L (98-107) mmol/L Carbon Dioxide 33 H (21-32) mmol/L BUN 22 H (7-18) mg/dl Creatinine 0.39 L (0.6-1.2) mg/dl Glucose 105 H (70-99) mg/dl Calcium 9.0 (8.5-10.1) mg/dl Intake and Output 06/16/21 06/17/21 06/17/21 22:59 06:59 14:59 Intake Total 252.5 / 452.5 Output Total 875 / 3275 700 / 3275 Balance -622.5 / -2822.5 -700 / -2822.5 Intake: IV 252.5 / 252.5 Azithromycin 250 mg In Dextrose 252.5 / 252.5 5% 250 ml @ 125 mls/hr IV DAILY@1999 [facility] Rx#:[id number] Output: Urine Amount (Catheter) 875 / 3275 700 / 3275 Suprapubic 875 / 3275 700 / 3275 Other: Weight 94.1 kg 94.1 kg Weight Measurement Method Built in [facility] Patient Weight 06/18/21 06:59 Weight 94.1 kg (1) Pulmonary edema Chronicity: acute Qualified Code(s): J81.0 - Acute pulmonary edema
--- NOTE | 2021-06-17 12:44 | XRay Report ---
XR chest 1V portable CLINICAL HISTORY: Pulmonary edema. COMPARISON STUDY: Chest CT June 08, 2021. Chest radiograph June 14, 2021. FINDINGS: Tracheostomy tube is in place. There is no pneumothorax. Cardiomegaly is unchanged. Pulmona ry edema has improved since exam of June 14, 2021. Small left pleural effusion is noted. Bibasilar op acities persist. IMPRESSION: 1. Interval improvement in pulmonary edema. 2. Persistent bibasilar opacities which favor pneumonia although atelectasis could appear similar. 3. Small bilateral pleural effusions, left larger than right. ACT 112: Negative or not required by law. Electronically signed by: Mata Hughes M.D. 06/17/2021 12:43 PM
--- NOTE | 2021-06-17 16:23 | Electrocardiogram Report ---
Test Reason : Blood Pressure : / mmHG Vent. Rate : 128 BPM Atrial Rate : 128 BPM P-R Int : 174 ms QRS Dur : 084 ms QT Int : 274 ms P-R-T Axes : 060 045 230 degrees QTc Int : 400 ms Atrial flutter with variable A-V block Abnormal ECG When compared with ECG of 16-JUN-2021 11:46, Vent. rate has increased BY [address] elevation has replaced ST depression in Inferior leads T wave inversion now evident in Inferior leads T wave inversion now evident in Lateral leads Confirmed by Yamil Ortega ([id number]) on 06/17/2021 4:23:00 PM Referred By: Jt Liu Confirmed By:Yamil Ortega
[2021-06-17] MEDS: ACETAMINOPHEN 325 MG TAB PEG PRN (16:26)
[2021-06-17] MEDS: WARFARIN SOD 3 MG TAB PO SCH (16:30)
--- NOTE | 2021-06-17 16:49 | Neurology Progress Note ---
Date of Service June 17, 2021 Assessment & Plan (1) Seizure disorder: Plan: 1. continue current seizure medications 2. Diastat PA as needed for recurrent or prolonged seizure 3. tegretol, lamictal depakote levels tomorrow am 4. no changes until levels return 5. seizure precautions (2) Paraplegia: Plan: 1. continue repositioning to avoid bed sores 2. fall precautions Plan: as above Admission and Anticipated Discharge Date Admission Date: June 05, 2021 Supervising Physician Co-Signing Physician Notes I have seen and discussed above patient with Dr Jana Perez, neurology Subjective Nikia Pickens is a 50 year old female presenting from home with PMH Covid-19, hypoxemia. She is mental challenged and is tracheostomy dependent respiratory failure (no use of home O2 at baseline - she has a cuffless Shiley #4), PEG tube and suprapubic catheter. She lives at home with her parents who provide majority of her care. She also has a caregiver that comes into the home. Her parents developed mild fatigue/body aches/stuffy nose - they were subsequently tested for Covid-19 and found to be positive - appx 2 weeks ago. She had a positive Covid-19 test 10 days ago. She has been doing fairly well at home, however, over a 4 days intervel she became increasingly fatigued and somnolent, less responsive and interactive. Her mother checks her pulse ox routinely and notes that it has been steadily declining over the last 4 days - 85 - 91%. They suction her as needed and do not not any increased or change in secretions. Mother thinks she may have a UTI as well. She was seen by Dr Perez after admission to help manage her seizure medications. she was given IV antibiotics which reduce her seizure medications levels. Her mom and dad are in the room. Mom states she had a run of seizure episodes but they were her typical events and often she given her no Diastat to arrest them but if they continue for a period of time she does. Review of Systems Review of Systems: Unobtainable due to cognitive status Physical Exam Physical Exam: Gen: alert and nods head to questions lungs: course breath sounds with trach collar in place CV RRR moves arms spontaneously no movement of legs 2+ pitting edema bilaterally with short stature and clubs feet responds to light touch. Results & Data ([facility]) Vital Signs (Past 12 Hours) Vital Signs Temp Pulse Pulse Pulse Resp BP BP 06/17/21 15:30 37.1 C 108 H 21 96/64 L 06/17/21 11:50 37 C 112 H 18 100/75 06/17/21 09:00 134 H 06/17/21 06:03 134 H 114/83 Pulse Ox 06/17/21 15:30 93 06/17/21 11:50 90 06/17/21 09:00 06/17/21 06:03 93 Laboratory Results Abnormal lab results 06/17/21 06/17/21 06/17/21 Range/Units 07:01 07:01 07:01 RBC 3.67 L (4.2-5.4) M/uL Hgb 11.7 L (12.0-16.0) g/dL Hct 34.2 L (37-47) % RDW Std Deviation 48.5 H (36.4-46.3) fL PT 21.2 H (9.0-12.0) Seconds INR 2.2 H (0.9-1.1) Sodium 129 L (136-145) mmol/L Chloride 90 L (98-107) mmol/L Carbon Dioxide 33 H (21-32) mmol/L BUN 22 H (7-18) mg/dl Creatinine 0.39 L (0.6-1.2) mg/dl BUN/Creatinine Ratio 55.9 H (10-20) Glucose 105 H (70-99) mg/dl Diagnostic Findings no new imaging
--- NOTE | 2021-06-17 17:49 | Progress Notes ---
DATE OF SERVICE: 06/17/2021 Please see accompanying note by Jana Esquivel. We have been asked to see Nikia today because she apparently had 9 very brief seizures this morning and some this afternoon. They lasted this morning 9-10 seconds to 30 seconds. They were very brief. She resumed alertness in between. It is not unu sual for her to go a week or two without a seizure and then have a cluster of this type. She has not had levels today. She is ending antibiotics today. She has been persistently in atrial fibrillatio n or atrial flutter and is now on warfarin. On exam, she is awake and alert. She is feeding herself. No fixed eye deviation. No myoclonic jerk is noted. IMPRESSION: This patient likely has [place] i.e., multiple seizure types. She has always had poor control. We will check levels in the morning. As noted by Jana, Diastat is always availabl e for use. We will revisit the anticonvulsant dosing in the morning provided there are no intercurre nt seizures. As previously noted in my prior notes, if she were to have convulsive episodes, we coul d consider using Keppra for the short term. We will follow with you. Job ID: [id number]
[2021-06-17] MEDS: LEVOTHYROXINE SODIUM 175 MCG TABLET PEG SCH (20:21)
[2021-06-17] MEDS: PROSOURCE NO CARB 30 ML/PKT PEG SCH (21:25)
[2021-06-17] MEDS: PEPTAMEN 1.5 CAL 1,000 ML BAG PEG SCH (22:58)
[2021-06-18] MEDS: TUBE FEEDING WATER FLUSH PEG SCH ×6 (02:13→23:08)
[2021-06-18] MEDS: FUROSEMIDE 20 MG in SYRINGE 0 ML IV SCH ×4 (06:15→23:08)
[2021-06-18] MEDS: LEVALBUTEROL HCL 1.25 MG/3 ML NEB NEB SCH ×2 (07:17→19:28)
[2021-06-18 07:27] LABS: Albumin Level 2.6 gm/dl (3.4-5.0); Calcium 9.3 mg/dl (8.5-10.1); Creatinine Clr Calc Pharmacy 153.5 ml/min; Est GFR (African American) 138.3 ml/min; Est GFR (Non-African American) 119.4 ml/min; INR 2.4 (0.9-1.1); Magnesium 2.1 mg/dl (1.8-2.4); Potassium 3.8 mmol/L (3.5-5.1); Prothrombin Time 23.1 Seconds (9.0-12.0)
[2021-06-18 07:30] LABS: Albumin Globulin Ratio 0.6 (0.9-2); Bilirubin,Total 0.3 mg/dl (0.2-1); Globulin 4.4 gm/dl (2.5-4.0)
[2021-06-18 07:32] LABS: Carbamazepine Tegretol 7.8 mcg/ml (4-12)
[2021-06-18] MEDS: MAGNESIUM OXIDE 400 MG TAB PO SCH (08:40)
[2021-06-18] MEDS: MULTIVITAMIN TAB PO SCH (08:40)
[2021-06-18] MEDS: carBAMazepine 100 MG CHEW TAB PO SCH (08:40)
[2021-06-18] MEDS: FLECAINIDE ACETATE 100 MG TABLET PO SCH ×2 (08:41→21:18)
[2021-06-18] MEDS: SODIUM CHLORIDE 1 GM TABLET PO SCH ×2 (08:41→21:17)
[2021-06-18] MEDS: LANSOPRAZOLE 30 MG SOLTAB NG SCH (08:41)
[2021-06-18] MEDS: guaiFENesin 600 MG TABCR PO SCH ×2 (08:41→16:46)
[2021-06-18] MEDS: METOPROLOL TARTRATE 50 MG TAB PO SCH ×2 (08:41→21:19)
[2021-06-18] MEDS: lamoTRIgine 100 MG TAB PO SCH ×2 (08:41→16:47)
[2021-06-18] MEDS: POTASSIUM CHLORIDE 20 MEQ/15 ML UDC PO SCH ×3 (08:42→21:20)
[2021-06-18] MEDS: DOCUSATE SODIUM SYRUP 100 MG/10 ML UDC PO SCH (08:42)
[2021-06-18] MEDS: VALPROIC ACID 50 MG/ML UDP PO SCH ×2 (08:42→21:21)
[2021-06-18] MEDS: OXYBUTYNIN CHLORIDE XL 5 MG TABCR PO PRN (08:42)
[2021-06-18] MEDS: diazePAM 5 MG TABLET PO SCH ×2 (08:48→16:46)
--- NOTE | 2021-06-18 10:01 | Electrocardiogram Report ---
Test Reason : Blood Pressure : / mmHG Vent. Rate : 113 BPM Atrial Rate : 226 BPM P-R Int : 000 ms QRS Dur : 112 ms QT Int : 316 ms P-R-T Axes : 080 047 246 degrees QTc Int : 433 ms Atrial flutter with 2:1 A-V conduction Abnormal ECG When compared with ECG of 17-JUN-2021 06:19, QRS duration has increased The anterolateratl ST/T changes have improved Confirmed by Shakeel Ruth ([id number]) on 06/18/2021 10:00:42 AM Referred By: Jt Liu Confirmed By:Shakeel Ruth
[2021-06-18] MEDS ORDERED: carBAMazepine 100 MG CHEW TAB PO ONE (10:15)
--- NOTE | 2021-06-18 10:54 | Progress Notes ---
DATE OF NOTE: 06/18/2021 I am seeing the patient in followup of multiple seizure types. She has not had any seizures overnigh t and has generally done well. She remains mildly tachycardic. Her lab data is notable for a Depako te level of 61 and a Tegretol level of 7.8. She is currently taking Depakote 625 mg b.i.d. and Tegre angie 250 mg twice a day as well as Lamictal 100 mg b.i.d. and Valium 5 mg b.i.d. On today's exam, she is awake and alert. She is able to show me her rings apparently understanding language. She moves the upper extremities symmetrically. IMPRESSION: The patient has mild intellectual disability and spinal cord injury secondary to seizure disorder with incomplete control, recent slurry of seizures yesterday which has settled down. Recomm end increasing the Tegretol to 300 mg twice a day and following levels probably in 3-4 days. We will follow with you. Job ID: [id number]
[2021-06-18] MEDS: WARFARIN SOD 3 MG TAB PO SCH (16:46)
[2021-06-18] MEDS: carBAMazepine 200 MG TABLET PO SCH (16:46)
[2021-06-18] MEDS ORDERED: carBAMazepine 100 MG CHEW TAB PO SCH (17:00)
--- NOTE | 2021-06-18 17:03 | Cardiology Progress Note ---
Date of Service June 18, 2021 Assessment & Plan (1) Afib: (2) Pleural effusion, left: (3) Pulmonary edema: Plan: Continue metoprolol tartrate 50 mg twice daily, flecainide 100mg BID, and warfarin. Echocardiogram demonstrates normal myocardial thickness, normal LVEF, no evidence of structural heart disease. Multifactorial edema secondary to noncardiac issues including low albumin level, immobility, neurogenic bladder, and recently administration of IV medications. NaCL tablets also likely a contributing factor. Chronic hyponatremia stable. Continue furosemide 20 mg IV every 6 hours (has suprapubic catheter). Monitor fluid balance, GFR, and electrolytes daily. As previosly documented, Tegretol prevents treatment with the direct oral anticoagulant agents such as Xarelto, Pradaxa, and Eliquis, as Tegretol lowers the effectiveness of these medications in terms of stroke prophylaxis. Lovenox is not ideal. Repeat ECG in AM. Monitor telemetry. (4) Generalized epilepsy: Plan: Management as per neurology and hospitalist. DVT prophylaxis: has an IVC filter, and is also now on coumadin. Admission and Anticipated Discharge Date Admission Date: June 05, 2021 Subjective Patient seen examined at the bedside. She is nonverbal. Telemetry reveals atrial flutter with a heart rate ranging from 100-100 20 beats per minute. tolerating current medications including flecainide. INR today is therapeutic. Review of Systems Review of Systems: Unobtainable due to cognitive status Physical Exam Constitutional: + obese Respiratory: no respiratory distress, no labored breathing and no retractions Auscultation: no crackles, no rales, no rhonchi and no wheezes Cardiovascular: Rate/Rhythm: regular rate and + tachycardic Heart Sounds: normal S1 and normal S2; no murmur and no cardiac rub Gastrointestinal (Abdomen): Inspection/Auscultation: abdomen not distended and + abnormal bowel sounds Percussion/Palpation: abdomen soft; abdomen nontender, no guarding and abdomen not rigid Neurologic: awake Psychiatric: Speech: + mute Results & Data ([facility]) Vital Signs (Past 12 Hours) Vital Signs Temp Pulse Pulse Resp BP BP Pulse Ox 06/18/21 16:11 36.9 C 106 H 20 89/56 L 92 06/18/21 11:38 36.7 C 94 H 20 95/62 L 94 06/18/21 07:48 36.8 C 113 H 18 108/74 93 06/18/21 07:17 95 H 18 93 (1) Pulmonary edema Chronicity: acute Qualified Code(s): J81.0 - Acute pulmonary edema
--- NOTE | 2021-06-18 20:40 | Hospitalist Progress Note ---
Date of Service June 18, 2021 Assessment & Plan (1) Infectious encephalopathy: Plan: Now resolved. Patient now considered to have metabolic encephalopathy from multifocal pneumonia likely concern for aspiration pneumonia. Her initial antibiotic choice was tailored to a Enterococcus in her urine and a ESBL Klebsiella. There was some concern that the Invanz was creating issues with her seizure medications. Urine grew 20,000 colonies of ESBL Klebsiella but no Enterococcus. Subsequently antibiotics changed to cover multifocal pneumonia both MRSA of which she has a nasal swab positive and atypical with azithromycin and vancomycin and gentamicin. Repeat MRSA nasal swab negative vancomycin stopped 06/11, 7 days Gentamicin completed (06/06-06/13), azithromycin completed (06/10-06/16). Appreciate SLT recommendations (2) Afib: Plan: A. fib, now A. flutter, likely spurred upon her metabolic stressors of the multifocal pneumonia. Appreciate cardiology management of this. Continue metoprolol and flecainide - increased dosing per cardiology.. Warfarin management per cardiology, INR 2.4 today. (3) Acute heart failure with preserved ejection fraction (HFpEF): Plan: Appreciate cardiology management with Lasix IV 20mg TID, BUN mildly increased, if heart rate more controlled suspect Lasix requirement to decrease. (4) Acute hyponatremia: Plan: Na now decreased to 131 with lasix. CXR improved from 06/17. (5) Generalized epilepsy: Plan: Appreciate neurology recommendation. Give anti-seizure medications via PEG to make sure she is absorbing these. (6) Mental retardation: Plan: Patient with functional quadriplegia (7) Tracheostomy tube present: (8) Moderate malnutrition: Plan: There has been some persistent concern of aspiration with the mother certainly her multifocal pneumonia could be based upon chronic aspiration. Patient is going to have some augmentation of her nutrition based upon nocturnal enteral feedings via her PEG tube and being allowed pleasure eating Appreciate SLT recommendations, remains on tube feeding at night (9) Pulmonary edema: Plan: Appreciate ongoing lasix dosing per cardiology recommendations, continue to monitor hyponatremia with this. Mostly resolved from CXR today. (10) DVT prophylaxis: Plan: Patient now off therapeutic heparin inr is therapeutic with coumadin Admission and Anticipated Discharge Date Admission Date: June 05, 2021 Subjective Concern about increasing dry mouth that her mother has noticed while eating. No further seizures today. Leg edema decreased. Shortness of breath at baseline. No fever or chills. Review of Systems Review of Systems: Unobtainable due to cognitive status Physical Exam Constitutional: + not well nourished and no acute distress Respiratory: normal respiratory effort, lungs clear to auscultation no cough Cardiovascular: Rate/Rhythm: + tachycardic and + irregularly irregular Vessels: no JVD Extremities: normal capillary refill and + pedal edema (1+ b/l pitting) Gastrointestinal (Abdomen): Percussion/Palpation: abdomen soft; abdomen nontender Neurologic: awake Psychiatric: Orientation: alert Results & Data Results & Data ([facility]) Vital Signs (Past 12 Hours) Vital Signs Temp Pulse Pulse Resp BP BP Pulse Ox 06/18/21 19:43 36.6 C 109 H 21 92/61 L 90 06/18/21 19:32 111 H 20 92 06/18/21 16:45 115/92 06/18/21 16:11 36.9 C 106 H 20 89/56 L 92 06/18/21 11:38 36.7 C 94 H 20 95/62 L 94 PG Care Time/CCT Total # of Minutes Spent Total Time Spent with Patient: Total time spent is greater than 50% in coordination of care (as documented) at patient's floor/unit and/or counseling patient: Coding Level of Care Code 06631 Subseq Hosp Care Lvl 2 Diagnoses Infectious encephalopathy G93.49; B99.9 Afib I48.91 Acute hyponatremia E87.1 Generalized epilepsy G40.309 Mental retardation F79 Tracheostomy tube present Z93.0 Moderate malnutrition E44.0 Pulmonary edema J81.0 Chronicity: acute DVT prophylaxis Z29.9 Acute heart failure with preserved ejection fraction (HFpEF) I50.31 (1) Pulmonary edema Chronicity: acute Qualified Code(s): J81.0 - Acute pulmonary edema
[2021-06-18] MEDS: LEVOTHYROXINE SODIUM 175 MCG TABLET PEG SCH (21:19)
[2021-06-18] MEDS: PEPTAMEN 1.5 CAL 1,000 ML BAG PEG SCH (23:07)
[2021-06-18] MEDS: PROSOURCE NO CARB 30 ML/PKT PEG SCH (23:08)
[2021-06-19] MEDS: TUBE FEEDING WATER FLUSH PEG SCH ×6 (03:42→21:30)
[2021-06-19 06:21] LABS: Prothrombin Time 19.4 Seconds (9.0-12.0)
[2021-06-19 06:29] LABS: BUN Creatinine Ratio 69.6 (10-20); Calcium 8.7 mg/dl (8.5-10.1); Creatinine Clr Calc Pharmacy 157.1 ml/min; Est GFR (African American) 139.4 ml/min; Est GFR (Non-African American) 120.3 ml/min; Magnesium 2.2 mg/dl (1.8-2.4); Potassium 3.9 mmol/L (3.5-5.1)
[2021-06-19] MEDS: FUROSEMIDE 20 MG in SYRINGE 0 ML IV SCH (06:51)
[2021-06-19] MEDS: LEVALBUTEROL HCL 1.25 MG/3 ML NEB NEB SCH ×2 (07:09→19:51)
[2021-06-19] MEDS: MAGNESIUM OXIDE 400 MG TAB PO SCH (09:25)
[2021-06-19] MEDS: VALPROIC ACID 50 MG/ML UDP PO SCH ×2 (09:29→21:30)
[2021-06-19] MEDS: METOPROLOL TARTRATE 50 MG TAB PO SCH ×2 (09:29→21:30)
[2021-06-19] MEDS: MULTIVITAMIN TAB PO SCH (09:29)
[2021-06-19] MEDS: SODIUM CHLORIDE 1 GM TABLET PO SCH (09:29)
[2021-06-19] MEDS: FLECAINIDE ACETATE 100 MG TABLET PO SCH ×2 (09:30→21:29)
[2021-06-19] MEDS: lamoTRIgine 100 MG TAB PO SCH ×2 (09:30→16:44)
[2021-06-19] MEDS: carBAMazepine 200 MG TABLET PO SCH ×2 (09:31→16:43)
[2021-06-19] MEDS: DOCUSATE SODIUM SYRUP 100 MG/10 ML UDC PO SCH (09:32)
[2021-06-19] MEDS: LANSOPRAZOLE 30 MG SOLTAB NG SCH (09:33)
[2021-06-19] MEDS: POTASSIUM CHLORIDE 20 MEQ/15 ML UDC PO SCH ×3 (09:33→21:29)
[2021-06-19] MEDS: diazePAM 5 MG TABLET PO SCH ×2 (09:35→16:47)
[2021-06-19] MEDS: guaiFENesin 600 MG TABCR PO SCH ×2 (09:36→16:44)
--- NOTE | 2021-06-19 11:01 | Progress Notes ---
DATE OF SERVICE: 06/19/2021 SUBJECTIVE: I am seeing Nikia today in followup of multiple seizure types and mild intellectual dis ability with a history of a spinal cord injury and paraparesis. Mabel has probably had one several s econd seizure earlier today, but otherwise is doing well. She had a good evening. She still remains mildly tachycardic and in atrial fibrillation. Her labs yesterday were notable for a Depakote level of 61 and a Tegretol level of 7.8. Based on that, we made no change in the Depakote dosage and incr eased the Tegretol to 300 mg twice a day. PHYSICAL EXAMINATION: VITAL SIGNS: Blood pressure 89/70, pulse 108. GENERAL: The patient is awake and alert, waves at me. 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 We will c ontinue these current doses of Lamictal, Valium, Depakote and Tegretol. I would recommend checking t he Depakote and Tegretol levels in 2-3 days or, if the patient is being discharged sooner, prior to d ischarge. Please contact us if there are any ongoing seizures or concerns regarding dosing of her an ticonvulsants. She should see Dr. Liu in followup post-discharge for her seizures. Job ID: [id number]
--- NOTE | 2021-06-19 14:35 | Cardiology Progress Note ---
Date of Service June 19, 2021 Assessment & Plan (1) Afib: (2) Pleural effusion, left: (3) Pulmonary edema: Plan: QRS duration increased per ECG 06/18/2021. Repeat today and in a.m. Consider reducing dose of flecainide pending review. Continue metoprolol tartrate 50 mg twice daily, flecainide 100mg BID, and warfarin. Echocardiogram demonstrates normal myocardial thickness, normal LVEF, no evidence of structural heart disease. Multifactorial edema secondary to noncardiac issues including low albumin level, immobility, neurogenic bladder, and recently administration of IV medications. NaCL tablets also likely a contributing factor. Chronic hyponatremia stable. Agree with reduction of Lasix to 20 mg IV daily. Monitor fluid balance, GFR, and electrolytes daily. (Output monitored via suprapubic catheter) As previosly documented, Tegretol prevents treatment with the direct oral anticoagulant agents such as Xarelto, Pradaxa, and Eliquis, as Tegretol lowers the effectiveness of these medications in terms of stroke prophylaxis. Weight- based Lovenox is not ideal for this patient. Continue warfarin. Monitor telemetry. (4) Generalized epilepsy: Plan: Management as per neurology and hospitalist. DVT prophylaxis: has an IVC filter, and is also now on coumadin. Admission and Anticipated Discharge Date Admission Date: June 05, 2021 Subjective Patient seen and examined the bedside. She is nonverbal. Mother present during evaluation. Patient more alert today. Heart rate improved. Remains in atrial flutter with rate ranging from 85-110 bpm. QRS duration increased per ECG performed 06/18/2021. Mother voicing concern regarding dry mucous membranes. Lasix reduced to once daily dosing. Edema improved. Review of Systems Review of Systems: Unobtainable due to cognitive status (Nonverbal) Physical Exam Constitutional: + obese Respiratory: no respiratory distress, no labored breathing and no retractions Auscultation: no crackles, no rales, no rhonchi and no wheezes Cardiovascular: Rate/Rhythm: regular rate and + tachycardic Heart Sounds: normal S1 and normal S2; no murmur and no cardiac rub Gastrointestinal (Abdomen): Inspection/Auscultation: abdomen not distended and + abnormal bowel sounds Percussion/Palpation: abdomen soft; abdomen nontender, no guarding and abdomen not rigid Neurologic: awake Psychiatric: Speech: + mute Results & Data ([facility]) Vital Signs (Past 12 Hours) Vital Signs Temp Pulse Pulse Resp BP BP Pulse Ox 06/19/21 11:24 36.8 C 89 17 91/67 L 95 06/19/21 09:20 108 H 110/70 06/19/21 07:09 108 H 18 92 06/19/21 06:29 36.9 C 108 H 18 89/70 L 93 (1) Pulmonary edema Chronicity: acute Qualified Code(s): J81.0 - Acute pulmonary edema
[2021-06-19] MEDS: WARFARIN SOD 3 MG TAB PO SCH (16:43)
[2021-06-19] MEDS: ACETAMINOPHEN 325 MG TAB PEG PRN (21:28)
[2021-06-19] MEDS: PROSOURCE NO CARB 30 ML/PKT PEG SCH (21:28)
[2021-06-19] MEDS: PEPTAMEN 1.5 CAL 1,000 ML BAG PEG SCH ×2 (21:28→23:00)
[2021-06-19] MEDS: LEVOTHYROXINE SODIUM 175 MCG TABLET PEG SCH (21:29)
--- NOTE | 2021-06-19 23:38 | Hospitalist Progress Note ---
Date of Service June 19, 2021 Assessment & Plan (1) Infectious encephalopathy: Plan: Now resolved. Patient now considered to have metabolic encephalopathy from multifocal pneumonia likely concern for aspiration pneumonia. Her initial antibiotic choice was tailored to a Enterococcus in her urine and a ESBL Klebsiella. There was some concern that the Invanz was creating issues with her seizure medications. Urine grew 20,000 colonies of ESBL Klebsiella but no Enterococcus. Subsequently antibiotics changed to cover multifocal pneumonia both MRSA of which she has a nasal swab positive and atypical with azithromycin and vancomycin and gentamicin. Repeat MRSA nasal swab negative vancomycin stopped 06/11, 7 days Gentamicin completed (06/06-06/13), azithromycin completed (06/10-06/16). Appreciate SLT recommendations (2) Afib: Plan: A. fib, now A. flutter, likely spurred upon her metabolic stressors of the multifocal pneumonia. Appreciate cardiology management of this. Continue metoprolol and flecainide per cardiology recommendations. Rate now better controlled. Warfarin management per cardiology, INR 2.0 today. (3) Acute heart failure with preserved ejection fraction (HFpEF): Plan: Appreciate cardiology management with Lasix, appears to be dry today and morning dose missed. BUN also increased suggestive of hypovolemic with dry mucus membranes. Skip Lasix today. Restart at 20mg IV tomorrow. Suspect rate related. (4) Acute hyponatremia: Plan: CXR improved from 06/17. Possible chronic hyponatremia from carbamazepine use. Possible SIADH however previous suspected chronic hyponatremia secondary to poor solute intake by Dr Torres. Will discontinue salt tabs as may be contributing towards water retention to see if she can maintain her sodium levels without this. (5) Generalized epilepsy: Plan: Appreciate neurology recommendation. Give anti-seizure medications via PEG to make sure she is absorbing these. Repeat Tegretol and valproic acid levels in am as discussed with her mother. (6) Mental retardation: Plan: Patient with functional quadriplegia (7) Tracheostomy tube present: (8) Moderate malnutrition: Plan: There has been some persistent concern of aspiration with the mother certainly her multifocal pneumonia could be based upon chronic aspiration. Patient is going to have some augmentation of her nutrition based upon nocturnal enteral feedings via her PEG tube and being allowed pleasure eating Appreciate SLT recommendations, remains on tube feeding at night (9) Pulmonary edema: Plan: Appreciate ongoing lasix dosing per cardiology recommendations, continue to monitor hyponatremia with this. Mostly resolved from CXR 06/17. (10) DVT prophylaxis: Plan: Warfarin with therapeutic INR Admission and Anticipated Discharge Date Admission Date: June 05, 2021 Subjective Mother feels she is less responsive than her usual self today. Hypotension this morning with dry mucus membranes making it more difficult to eat. Review of Systems Review of Systems: Unobtainable due to cognitive status Physical Exam Constitutional: + not well nourished and no acute distress Respiratory: normal respiratory effort, lungs clear to auscultation no cough Cardiovascular: Rate/Rhythm: + tachycardic and + irregularly irregular Vessels: no JVD Extremities: normal capillary refill; no pedal edema Gastrointestinal (Abdomen): Percussion/Palpation: abdomen soft; abdomen nontender Neurologic: awake Psychiatric: Orientation: alert Results & Data Results & Data ([facility]) Vital Signs (Past 12 Hours) Vital Signs Temp Pulse Pulse Pulse Resp BP BP 06/19/21 23:06 36.7 C 92 H 18 99/79 L 06/19/21 20:33 36.7 C 103 H 18 108/79 06/19/21 19:45 100 H 18 06/19/21 17:41 97 H 06/19/21 15:23 37.3 C 106 H 16 96/70 L Pulse Ox 06/19/21 23:06 91 06/19/21 20:33 94 06/19/21 19:45 92 06/19/21 17:41 06/19/21 15:23 94 PG Care Time/CCT Total # of Minutes Spent Total Time Spent with Patient: Total time spent is greater than 50% in coordination of care (as documented) at patient's floor/unit and/or counseling patient: Coding Level of Care Code 68013 Subseq Hosp Care Lvl 2 Diagnoses Infectious encephalopathy G93.49; B99.9 Afib I48.91 Acute heart failure with preserved ejection fraction (HFpEF) I50.31 Acute hyponatremia E87.1 Generalized epilepsy G40.309 Mental retardation F79 Tracheostomy tube present Z93.0 Moderate malnutrition E44.0 Pulmonary edema J81.0 Chronicity: acute DVT prophylaxis Z29.9 (1) Pulmonary edema Chronicity: acute Qualified Code(s): J81.0 - Acute pulmonary edema
[2021-06-20] MEDS: TUBE FEEDING WATER FLUSH PEG SCH ×6 (03:00→22:34)
[2021-06-20] MEDS: LEVALBUTEROL HCL 1.25 MG/3 ML NEB NEB SCH ×2 (07:27→19:25)
[2021-06-20 07:59] LABS: BUN Creatinine Ratio 84.9 (10-20); Calcium 9.1 mg/dl (8.5-10.1); Creatinine Clr Calc Pharmacy 178.3 ml/min; Est GFR (African American) 145.2 ml/min; Est GFR (Non-African American) 125.3 ml/min; Potassium 4.3 mmol/L (3.5-5.1)
[2021-06-20 08:02] LABS: Carbamazepine Tegretol 9.1 mcg/ml (4-12)
[2021-06-20] MEDS: diazePAM 5 MG TABLET PO SCH ×2 (08:11→17:43)
[2021-06-20] MEDS: POTASSIUM CHLORIDE 20 MEQ/15 ML UDC PO SCH ×3 (08:11→22:34)
[2021-06-20] MEDS: MAGNESIUM OXIDE 400 MG TAB PO SCH (08:11)
[2021-06-20] MEDS: LANSOPRAZOLE 30 MG SOLTAB NG SCH (08:12)
[2021-06-20] MEDS: DOCUSATE SODIUM SYRUP 100 MG/10 ML UDC PO SCH (08:12)
[2021-06-20] MEDS: lamoTRIgine 100 MG TAB PO SCH ×2 (08:12→17:42)
[2021-06-20] MEDS: MULTIVITAMIN TAB PO SCH (08:12)
[2021-06-20] MEDS: guaiFENesin 600 MG TABCR PO SCH ×2 (08:13→17:42)
[2021-06-20] MEDS: FLECAINIDE ACETATE 100 MG TABLET PO SCH ×2 (08:13→22:33)
[2021-06-20] MEDS: METOPROLOL TARTRATE 50 MG TAB PO SCH ×2 (08:13→22:34)
[2021-06-20] MEDS: carBAMazepine 200 MG TABLET PO SCH ×2 (08:14→17:41)
[2021-06-20] MEDS: VALPROIC ACID 50 MG/ML UDP PO SCH ×2 (08:19→22:34)
--- NOTE | 2021-06-20 08:21 | Hospitalist Progress Note ---
Date of Service June 20, 2021 Assessment & Plan (1) Infectious encephalopathy: Plan: Questionably resolved, pt still does not appear to her baseline according to mother. Her initial infection was ESBL Klebsiella. There was some concern that the Invanz was creating issues with her seizure medications. Urine grew 20,000 colonies of ESBL Klebsiella but no Enterococcus. Subsequently antibiotics changed to cover multifocal pneumonia both MRSA of which she has a nasal swab positive and atypical with azithromycin and vancomycin and gentamicin. Repeat MRSA nasal swab negative vancomycin stopped 06/11, 7 days Gentamicin completed (06/06-06/13), azithromycin completed (06/10-06/16). Appreciate SLT recommendations, is still a aspiration risk. CT chest 06/20 did not show worseing or concern for penumonia, there is mention of a pericardial effusion but this does not seem clinically significant (2) Afib: Plan: A. fib, now A. flutter, likely spurred upon her metabolic stressors of the multifocal pneumonia. Appreciate cardiology management of this. Continue metoprolol and flecainide per cardiology recommendations. Rate now better controlled. Warfarin management per cardiology, INR 2.0 today. (3) Acute heart failure with preserved ejection fraction (HFpEF): Plan: Appreciate cardiology management with Lasix, appears to be dry today and morning dose missed. BUN also increased suggestive of hypovolemic with dry mucus membranes. Skip Lasix today. Restart at 20mg IV tomorrow. Suspect rate related. (4) Acute hyponatremia: Plan: CXR improved from 06/17. Possible chronic hyponatremia from carbamazepine use. Possible SIADH however previous suspected chronic hyponatremia secondary to poor solute intake by Dr Torres. Will discontinue salt tabs as may be contributing towards water retention to see if she can maintain her sodium levels without this. (5) Generalized epilepsy: Plan: Appreciate neurology recommendation. Give anti-seizure medications via PEG to make sure she is absorbing these. Repeat Tegretol and valproic acid levels in am as discussed with her mother. (6) Mental retardation: Plan: Patient with functional quadriplegia (7) Tracheostomy tube present: (8) Moderate malnutrition: Plan: There has been some persistent concern of aspiration with the mother certainly her multifocal pneumonia could be based upon chronic aspiration. Patient is going to have some augmentation of her nutrition based upon nocturnal enteral feedings via her PEG tube and being allowed pleasure eating Appreciate SLT recommendations, remains on tube feeding at night (9) Pulmonary edema: Plan: Appreciate ongoing lasix dosing per cardiology recommendations, continue to monitor hyponatremia with this. Mostly resolved from CXR 06/17. (10) DVT prophylaxis: Plan: Warfarin with therapeutic INR Admission and Anticipated Discharge Date Admission Date: June 05, 2021 Subjective Pt looks off according to family, she unfortunately is non verbal and does not have any real focal signs. she was treated for pneumonia and uti, this stay including klebsiella, will re test and check blood cultures. CT chest did show mild to moderate pericardial effusion. Review of Systems Review of Systems: Unable to obtain review of systems due to the patient not being able to speak she appears comfortable she is sleepy during the exam she is not having increased coughing or choking although she is an aspiration risk Physical Exam Physical Exam: The patient appeared well nourished and normally developed. Remains more awake and alert tracking with her eyes Vital signs as documented. Head exam is normocephalic atraumatic Neck is without JVD, ostomy is in place Lungs remain coarse and diminished due to her physical body positioning and just low tidal volumes Cardiac exam, patient on atrial flutter rate controlled rhythm Abdominal exam reveals normal bowel sounds, soft non tender, no masses PEG tube is in place Extremities are nonedematous and both pedal pulses are present Neurologic exam is alert and smiles and responds to questions is functionally paraplegic Skin is with large bruise to the right arm from previous heparin infusion Psychologically is without concerns for anxiety or depression Results & Data Results & Data ([facility]) Vital Signs (Past 12 Hours) Vital Signs Temp Pulse Pulse Resp BP BP Pulse Ox 06/20/21 07:28 108 H 20 90 06/20/21 04:56 98.6 F 98 H 22 107/76 96 06/19/21 23:06 98.1 F 92 H 18 99/79 L 91 06/19/21 20:33 98.1 F 103 H 18 108/79 94 PG Care Time/CCT Total # of Minutes Spent Total Time Spent with Patient: Total time spent is greater than 50% in coordination of care (as documented) at patient's floor/unit and/or counseling patient: Coding Level of Care Code 83702 Subseq Hosp Care Lvl 3 Diagnoses Infectious encephalopathy G93.49; B99.9 Afib I48.91 Acute heart failure with preserved ejection fraction (HFpEF) I50.31 Acute hyponatremia E87.1 Generalized epilepsy G40.309 Mental retardation F79 Tracheostomy tube present Z93.0 Moderate malnutrition E44.0 Pulmonary edema J81.0 Chronicity: acute DVT prophylaxis Z29.9 (1) Pulmonary edema Chronicity: acute Qualified Code(s): J81.0 - Acute pulmonary edema
[2021-06-20] MEDS ORDERED: FUROSEMIDE 20 MG in SYRINGE 0 ML IV SCH (09:00)
--- NOTE | 2021-06-20 09:39 | Electrocardiogram Report ---
Test Reason : Blood Pressure : / mmHG Vent. Rate : 104 BPM Atrial Rate : 208 BPM P-R Int : 000 ms QRS Dur : 098 ms QT Int : 322 ms P-R-T Axes : 084 064 231 degrees QTc Int : 423 ms Atrial flutter Abnormal ECG When compared with ECG of 18-JUN-2021 06:21, No significant change Confirmed by Mak Horton [id number]) on 06/20/2021 9:39:11 AM Referred By: Jt Liu Confirmed By:Mak Horton
--- NOTE | 2021-06-20 11:12 | Cardiology Progress Note ---
Date of Service June 20, 2021 Assessment & Plan (1) Afib: Plan: Atrial fibrillation rates are trending towards better control. Blood pressure limits increasing beta-enzo. Patient now on flecainide with anticoagulation with warfarin. We will trial increasing beta-enzo slightly (2) Pleural effusion, left: (3) Pulmonary edema: Plan: Clinically improved. No further IV furosemide with plan to change to oral dosing in a.m. Chronic hypoalbuminemia contributing (4) Generalized epilepsy: Plan: Management as per neurology and hospitalist. DVT prophylaxis: has an IVC filter, and is also now on coumadin. Admission and Anticipated Discharge Date Admission Date: June 05, 2021 Subjective Patient was seen and examined, chart, medications, telemetry reviewed. Patient mother at bedside. Mother feels patient appears less attentive today. Patient nonverbal. Mouth is dry. Telemetry demonstrates persistent atrial fibrillation, heart rates 80-90 at night 100-115 this morning Peripheral edema appears to be improved Patient has received a dose of IV furosemide this morning Physical Exam Constitutional: Chronically ill-appearing female in no acute distress, nonverbal ENMT: Mucous membranes dry Respiratory: Mildly diminished breath sounds but clear Cardiovascular: Rate/Rhythm: + tachycardic and + irregularly irregular Heart Sounds: normal S1 and normal S2 Vessels: no JVD and no carotid bruit Extremities: + edema (Trace LE edema,doughy consistent) Gastrointestinal (Abdomen): Inspection/Auscultation: normal bowel sounds Results & Data ([facility]) Vital Signs (Past 12 Hours) Vital Signs Temp Pulse Pulse Resp BP BP Pulse Ox 06/20/21 08:42 113 H 19 109/85 95 06/20/21 07:28 108 H 20 90 06/20/21 04:56 37.0 C 98 H 22 107/76 96 Laboratory Results Laboratory Results - last 24 hr 06/20/21 06/20/21 06/20/21 07:06 07:06 07:06 PT 19.0 H INR 2.0 H Sodium 132 L Potassium 4.3 Chloride 100 Carbon Dioxide 28 Anion Gap 4.0 BUN 32 H Creatinine 0.38 L Est Cr Clr Drug Dosing 178.3 Est GFR ( Amer) 145.2 Est GFR (Non-Af Amer) 125.3 BUN/Creatinine Ratio 84.9 H Glucose 129 H Calcium 9.1 Valproic Acid 63 Carbamazepine 9.1 (1) Pulmonary edema Chronicity: acute Qualified Code(s): J81.0 - Acute pulmonary edema
[2021-06-20] MEDS: ACETAMINOPHEN 325 MG TAB PEG PRN (14:22)
--- NOTE | 2021-06-20 16:14 | CT Scan Report ---
CT chest diagnostic wo con CT DOSE: 516.85 mGycm HISTORY: Shortness of breath. eval for progression of pneumonia TECHNIQUE: Multiaxial CT images of the chest were performed without contrast. A dose lowering techni que was utilized adhering to the principles of ALARA. COMPARISON: Chest CTA 06/08/2021. FINDINGS: A tracheostomy tube is in good position. There is a small amount of mucoid material within the distal trachea. Remaining central airways are patent. There is respiratory motion and streak riley fact from the patient's overlapping arms. Patchy airspace opacities most pronounced within the right upper lobe have improved in the interval. Consolidation within the lower lobes posteriorly are again noted. This favors atelectasis. No pneumothorax. A trace right pleural effusion has improved. A small left pleural effusion has slightly increased in size. Interval development of a small to moderate pe ricardial effusion measuring up to 12 mm in thickness. This is likely low density but is difficult to assess due to the streak artifact. The heart remains mildly enlarged. There is normal caliber thorac ic aorta. Limited views of the upper abdomen demonstrate a normal liver. No mediastinal or hilar lymp hadenopathy. No suspicious lytic or blastic osseous lesions. Chronic elevation the right hemidiaphrag m. IMPRESSION: 1. Interval improvement in the bilateral patchy airspace opacities consistent with a resolving pneumo thomas. 2. A trace right pleural effusion has improved. The small left pleural slight increase in size. 3. Bilateral lower lobe densities persist and favor atelectasis. An aspiration pneumonia could also h ave a similar appearance.. 4. Interval development of a small to moderate pericardial effusion. 5. The tracheostomy tube is in good position. There is a small amount of mucoid material within the d istal trachea. ACT 112: Negative or not required by law. Electronically signed by: Guzman Jansen M.D. 06/20/2021 4:13 PM
[2021-06-20] MEDS: WARFARIN SOD 3 MG TAB PO SCH (17:41)
[2021-06-20] MEDS: PROSOURCE NO CARB 30 ML/PKT PEG SCH (22:34)
[2021-06-20] MEDS: LEVOTHYROXINE SODIUM 175 MCG TABLET PEG SCH (22:34)
[2021-06-20] MEDS: PEPTAMEN 1.5 CAL 1,000 ML BAG PEG SCH (22:34)
[2021-06-21] MEDS: ACETAMINOPHEN 325 MG TAB PEG PRN (00:39)
[2021-06-21] MEDS ORDERED: SODIUM CHLORIDE 0.9% 1000ML 500 ML IV ONE ×2 (01:28→05:17)
[2021-06-21] MEDS: TUBE FEEDING WATER FLUSH PEG SCH ×6 (01:49→21:36)
[2021-06-21 05:54] LABS: Basophils # (auto) 0.01 K/uL (0-0.2); Basophils % (auto) 0.1 %; Hematocrit (blood only) 32.1 % (37-47); Hemoglobin 10.9 g/dL (12.0-16.0); Immature Granulocytes # (auto) 0.02 K/uL (0.00-0.02); Immature Granulocytes % (auto) 0.3 %; Lymphocytes # (auto) 1.24 K/uL (1.2-3.4); Lymphocytes % (auto) 17.8 %; Mean Corpuscular Hemoglobin 32.8 pg (25-34); Mean Corpuscular Volume 96.7 fL (80-100); Mean Platelet Volume 8.7 fL (7.4-10.4); Monocytes % (auto) 15.8 %; Neutrophils # (auto) 4.58 K/uL (1.4-6.5); Platelet Count 277 K/uL (130-400); RDW Coefficient of Variation 15.1 % (11.5-14.5); Red Blood Count 3.32 M/uL (4.2-5.4); White Blood Count 6.95 K/uL (4.8-10.8)
[2021-06-21 06:04] LABS: INR 2.2 (0.9-1.1); Prothrombin Time 21.4 Seconds (9.0-12.0)
[2021-06-21 06:28] LABS: BUN Creatinine Ratio 92.7 (10-20); Calcium 8.3 mg/dl (8.5-10.1); Creatinine Clr Calc Pharmacy 141.1 ml/min; Est GFR (African American) 134.4 ml/min; Potassium 5.2 mmol/L (3.5-5.1)
[2021-06-21] MEDS: LEVALBUTEROL HCL 1.25 MG/3 ML NEB NEB SCH ×2 (07:14→19:30)
--- NOTE | 2021-06-21 07:19 | Hospitalist Progress Note ---
Date of Service June 21, 2021 Assessment & Plan (1) Acute respiratory failure with hypercapnia: Plan: leading cause is likely encephalopathy from infectious source, does not immediately appear to be pulmonary source, started on antibiotics, and cultured, moved to icu for ventilation (2) Infectious encephalopathy: Plan: Low grade fever, pt appears significantly ill Pt with low grade temp previous history of drug resistent uti , and concerns for possible aspiration, re starting ampicillin and Gent given issues cited below Her initial infection was ESBL Klebsiella. There was some concern that the Invanz was creating issues with her seizure medications. Urine grew 20,000 colonies of ESBL Klebsiella but no Enterococcus. Subsequently antibiotics changed to cover multifocal pneumonia both MRSA of which she has a nasal swab positive and atypical with azithromycin and vancomycin and gentamicin. Repeat MRSA nasal swab negative vancomycin stopped 06/11, 7 days Gentamicin completed (06/06-06/13), azithromycin completed (06/10-06/16). Appreciate SLT recommendations, is still a aspiration risk. CT chest 06/20 did not show worsening or concern for pneumonia, there is mention of a pericardial effusion but this does not seem clinically significant (3) Afib: Plan: A. fib, now A. flutter, likely spurred upon her metabolic stressors of the multifocal pneumonia. now converted to sinus rhythm Appreciate cardiology management of this. Continue metoprolol and flecainide per cardiology recommendations. Rate now better controlled. Warfarin management per cardiology, INR 2.0 today. repeat echo does not show tamponade physiology (4) Acute heart failure with preserved ejection fraction (HFpEF): Plan: Appreciate cardiology management did have fluid bolus overnight 06/20-, now with peripheral edema, is not hypoxic (5) Acute hyponatremia: Plan: Possible chronic hyponatremia from carbamazepine use. Possible SIADH however previous suspected chronic hyponatremia secondary to poor solute intake by Dr Torres. Will discontinue salt tabs as may be contributing towards water retention to see if she can maintain her sodium levels without this. (6) Generalized epilepsy: Plan: Appreciate neurology recommendation. Give anti-seizure medications via PEG to make sure she is absorbing these. Repeat Tegretol and valproic acid levels in am as discussed with her mother. (7) Mental retardation: Plan: Patient with functional quadriplegia (8) Tracheostomy tube present: Plan: changed to cuffed tube to ventilate (9) Moderate malnutrition: Plan: There has been some persistent concern of aspiration with the mother certainly her multifocal pneumonia could be based upon chronic aspiration. Patient is going to have some augmentation of her nutrition based upon nocturnal enteral feedings via her PEG tube and being allowed pleasure eating Appreciate SLT recommendations, remains on tube feeding at night (10) Pulmonary edema: Plan: has preserved EF pt with likley some aspiration pneumonitis (11) DVT prophylaxis: Plan: Warfarin with therapeutic INR Plan: Multiple visits throughout the day discussion of this patient with Dr. Ulisses Gonsalez managing her acute respiratory failure I spent over 75 minutes with this patient Admission and Anticipated Discharge Date Admission Date: June 05, 2021 Subjective pt has fever,lower blood pressure and decreased urine output, and continues to not be herself according to family , CT chest 06/20 shows a mild to moderate pericardial effusion, unclear what role this plays, in the past did have enterococcus and MDR Klebsiella uti with chronic suprapubic cath. no pneumonia, pending ua and blood cultures and esr is 69. acute hypercapnic respiratory failure, was seen urgently by pulmonary medicine and had trache changed for cuffed trach and moved to icu to ventilate thru trache Review of Systems Review of Systems: unable to obtain due to non verbal state and illness Physical Exam Physical Exam: The patient appeared significantly ill and in respiratory distress Vital signs as documented. no hypoxic Head exam is normocephalic atraumatic Neck is without JVD, thyromegaly, or carotid bruits. Lungs are diminshed but bilateral breath sounds Cardiac exam, Rhythm is regular.converted to nsr. No murmurs, rubs or gallops. Abdominal exam reveals normal bowel sounds, soft non tender, no masses Extremities are 1+ edematous and both pedal pulses are present Neurologic exam is alert but listless Skin is with bruises to left arm Results & Data Results & Data ([facility]) Vital Signs (Past 12 Hours) Vital Signs Temp Pulse Pulse Resp BP BP Pulse Ox 06/21/21 06:13 102 H 111/75 93 06/21/21 05:00 99.7 F H 110 H 86/66 L 89/70 L 06/21/21 03:21 99.7 F H 97 H 20 93 06/21/21 02:28 99.3 F 98 H 20 106/57 L 94 06/21/21 01:50 105 H 84/67 L 94 06/21/21 00:45 100.2 F H 119 H 22 92/52 L 94 06/20/21 22:36 98.6 F 122 H 20 123/91 100 06/20/21 19:32 115 H 20 96 PG Care Time/CCT Total # of Minutes Spent Total Time Spent with Patient: Total time spent is greater than 50% in coordination of care (as documented) at patient's floor/unit and/or counseling patient: Coding Level of Care Code 62206 Subseq Hosp Care Lvl 3 (25 - SIGNIFICANT, SEPARATELY IDENTIFIABLE ) Diagnoses Infectious encephalopathy G93.49; B99.9 Afib I48.91 Acute heart failure with preserved ejection fraction (HFpEF) I50.31 Acute hyponatremia E87.1 Generalized epilepsy G40.309 Mental retardation F79 Tracheostomy tube present Z93.0 Moderate malnutrition E44.0 Pulmonary edema J81.0 Chronicity: acute DVT prophylaxis Z29.9 Acute respiratory failure with hypercapnia J96.02 Time Spent (min) 75 (1) Pulmonary edema Chronicity: acute Qualified Code(s): J81.0 - Acute pulmonary edema
[2021-06-21] MEDS ORDERED: GENTAMICIN CONSULT ACTIVE PRN (07:46)
[2021-06-21] MEDS: AMPICILLIN 2,000 MG in SODIUM CHLOR 0.9% AD-VAN 100 ML IV SCH ×3 (08:45→20:03)
[2021-06-21] MEDS: diazePAM 5 MG TABLET PO SCH ×2 (08:51→16:43)
[2021-06-21] MEDS: POTASSIUM CHLORIDE 20 MEQ/15 ML UDC PO SCH ×2 (08:51→13:49)
[2021-06-21] MEDS: LANSOPRAZOLE 30 MG SOLTAB NG SCH (08:52)
[2021-06-21] MEDS: MAGNESIUM OXIDE 400 MG TAB PO SCH (08:52)
[2021-06-21] MEDS: OXYBUTYNIN CHLORIDE XL 5 MG TABCR PO PRN (08:52)
[2021-06-21] MEDS: FLECAINIDE ACETATE 100 MG TABLET PO SCH ×2 (08:52→20:05)
[2021-06-21] MEDS: MULTIVITAMIN TAB PO SCH (08:52)
[2021-06-21] MEDS: lamoTRIgine 100 MG TAB PO SCH ×2 (08:52→16:42)
[2021-06-21] MEDS: METOPROLOL TARTRATE 50 MG TAB PO SCH ×2 (08:53→20:06)
[2021-06-21] MEDS: VALPROIC ACID 50 MG/ML UDP PO SCH ×2 (08:53→20:07)
[2021-06-21] MEDS: guaiFENesin 600 MG TABCR PO SCH ×2 (08:53→16:42)
[2021-06-21] MEDS: carBAMazepine 200 MG TABLET PO SCH ×2 (08:53→16:46)
[2021-06-21] MEDS: DOCUSATE SODIUM SYRUP 100 MG/10 ML UDC PO SCH (08:54)
[2021-06-21] MEDS ORDERED: DEXTROSE 5% IV SCH (09:00)
[2021-06-21] MEDS ORDERED: GENTAMICIN SULFATE IV SCH (09:00)
--- NOTE | 2021-06-21 10:44 | Pharmacy Report ---
Pharmacy Abx Dose Short Note - Date of Service June 21, 2021 - Assessment & Plan Assessment * 50 year old F receiving GENTAMICIN + AMPICILLIN for treatment of complicated UTI (surpapubic cath). Pharmacy to dose GENTAMICIN * Day #1 of antimicrobial therapy. Of note, ampicillin is being used to cover h/o enterococcus UTIs * Patient not back to baseline per mother's report and concern for low grade fever over last 24 hrs. Patient had received a 7 day course of IV gent earlier this admission (06/06-06/13) - relapse? new infxn? * Repeat urine cx drawn today 06/21 and is pending. Last urine cx 06/11 no growth. * Urine cx from 06/05/21 grew ESBL klebsiella pn sensitive to gent, carbapenems and nitrofurantoin but resistant to all others tested. * Ertapenem therapy utilized for ESBL kleb coverage earlier this admission led to subtherapeutic valproic acid levels due to significant drug interaction * Renal fxn difficult to assess given body habitus and low muscle mass. SCr today somewhat higher than baseline but level does tend to fluctuate Plan Gentamicin * Will resume 312mg (~5mg/kg adj BW) Q 36 hrs as this was the dose she was last receiving based upon therapeutic drug monitoring * Will obtain random gent level ~10 hrs after start of infusion today to confirm clearance is as expected * Dosing interval to be adjusted per [facility] will continue to follow and will adjust dose/frequency as necessary. Thank you.
[2021-06-21 12:15] LABS: iSTAT Allen Test Pass; iSTAT Arterial Blood Gas HCO3 26 meg/L (19-24); iSTAT Arterial Blood Gas pCO2 53 mmHg (35-46); iSTAT Arterial Blood Gas pO2 70 mmHg (80-95); iSTAT Carbon Dioxide 28 mmol/L (24-31); iSTAT FiO2 28 %; iSTAT Site L Radial
[2021-06-21 15:43] LABS: BUN Creatinine Ratio 83.8 (10-20); Calcium 8.7 mg/dl (8.5-10.1); Creatinine Clr Calc Pharmacy 125.5 ml/min; Est GFR (African American) 129.3 ml/min; Est GFR (Non-African American) 111.6 ml/min; Potassium 6.7 mmol/L (3.5-5.1)
[2021-06-21] MEDS ORDERED: DEXTROSE 50% 50 ML SYRINGE IV ONE (15:46)
[2021-06-21] MEDS ORDERED: PATIROMER CALCIUM SORBITEX 8.4 GM PACK PO SCH (16:00)
[2021-06-21] MEDS ORDERED: INSULIN HUMAN REGULAR PER UNIT 10 UNITS in SYRINGE 0 ML IV ONE (16:10)
[2021-06-21] MEDS ORDERED: LIDOCAINE 2% JELLY 5 ML TUBE ONE (16:12)
[2021-06-21] MEDS ORDERED: INSULIN HUMAN REGULAR PER UNIT 10 UNITS in SYRINGE 9.9 ML IV ONE (16:15)
--- NOTE | 2021-06-21 16:42 | Procedure Note ---
Procedure Note Date of Service June 21, 2021 Note Procedure: Tracheostomy change Polisher Eyeglass Frames: Dr. Amber Gtz Indication: Transition to vent Consent: Verbal consent obtained from the mother Anesthesia: 1% lidocaine jelly topical Procedure: Patient was placed in a supine position. The tracheostomy was suctioned first. Clear secretions were appreciated. The inner cannula was then removed from the tracheostomy. On trying the change the size 4 trach to size 4 cuffed nonfenestrated trach there was resistance appreciated in the inner os of the tracheostomy. Bougie was also tried to see if it will benefit with the positioning but unfortunately is cuffed trach was not able to be passed smoothly. We changed the trach back to size for noncuffed Size 4 noncuffed nonfenestrated trach was changed to Size 4 noncuffed nonfenestrated trach smoothly. Trach Shiley was inserted without any difficulty. No bleeding was appreciated postprocedure. Good expiratory flow appreciated from the trach. A soft trach collar was then connected to the tracheostomy to make sure it is in place. The patient appeared comfortable and vital signs were stable all throughout the procedure. Complications: None Coding CPT Codes Pulmonary/Thoracic - Pulmonary and Thoracic: 89773 Tracheotomy tube change ([id number]) [facility] [place] (Charges) Pulmonary/Thoracic Procedure 1: Pulmonary and Thoracic: 93996 Tracheotomy tube change
[2021-06-21] MEDS: WARFARIN SOD 3 MG TAB PO SCH (16:43)
--- NOTE | 2021-06-21 16:44 | Procedure Note ---
Procedure Note Date of Service June 21, 2021 Note Bedside Ultrasound: Lung: Moderate amount of left-sided pleural effusion appreciated, atelectasis of the left lower lobe, no fibrillations or fasciculations appreciated minimal right-sided pleural effusion. Heart: Mild to moderate pericardial effusion appreciated Please note the above document was generated using voice recognition software. It may contain grammatical, syntax or spelling errors.Any formal questions or concerns about the content, text or information contained within the body of this dictation should be directly addressed to the provider for clarification. Coding CPT Codes Pulmonary/Thoracic - Pulmonary and Thoracic: 30485 US, Chest, real time with imaging documentation ([id number]) [facility] [place] Procedure Codes (Charges) Pulmonary/Thoracic Procedure 1: Pulmonary and Thoracic: 14570 US, Chest, real time with imaging documentation
--- NOTE | 2021-06-21 16:54 | Pulmonology Progress Note ---
Date of Service June 21, 2021 Assessment & Plan (1) Hypoxia: Plan: 50-year-old female with a past medical history of developmental delay, chronic seizures, tracheostomy placement 6 years ago status post spinal cord injury resulting in paraplegia presenting to the hospital due to concerns of urinary tract infection and found to have acute respiratory failure with hypoxia. CT chest 06/21/2021 personally reviewed: Motion degraded study, left-sided pleural effusion, left lobe atelectasis Peripheral segmental atelectasis of the right lower lobe also appreciated. Elevated right hemidiaphragm There is improvement in the bilateral infiltrates with the patient came in with, left pleural effusion persists. --Acute hypoxic hypercapnic respiratory failure Multifactorial Underlying diastolic CHF along with left lower lobe atelectasis playing a role Patient is on antibiotics for possible aspiration Hypercapnia could be from underlying new sepsis. Source is not clear right now Patient did have CT chest done 06/20/2021 which showed left lower lobe atelectasis left-sided pleural effusion, overall improved compared to before --TDRF Tube was placed secondary to difficult extubation in September 2009 Plan: I do not think patient's left-sided pleural effusion is the source of patient's current spiking a fever given there is improvement in the infiltrates on the latest CAT scan of the chest Bedside ultrasound did not show any loculations Atelectatic lung was appreciated Continue with antibiotics Repeat septic work-up Rule out intra-abdominal source for her sepsis especially UTI given the patient has ESBL Transfer the patient to ICU as she might need vent support overnight Patient mother and father who are at bedside are also updated regarding her condition Please note the above document was generated using voice recognition software. It may contain grammatical, syntax or spelling errors.Any formal questions or concerns about the content, text or information contained within the body of this dictation should be directly addressed to the provider for clarification. (2) Pleural effusion, left: (3) Paraplegia: (4) Pulmonary edema: Chronicity: acute Qualified Code(s): J81.0 - Acute pulmonary edema (5) Moderate malnutrition: (6) Weak cough: (7) Obesity: Admission and Anticipated Discharge Date Admission Date: June 05, 2021 Subjective Patient seen and examined at bedside. Pulmonary consulted again as patient was spiking fever overnight and she was also hypotensive ABG showed pH of 7.3 with PCO2 of 53. Patient's mental status was little bit more deteriorating I talked with Dr. Ricketts on the phone and advised him to put her on BiPAP through the uncuffed trach During the time of examination patient was saturating 95% on 08/31 40% BiPAP Review of Systems Review of Systems: Unobtainable due to mental health condition Physical Exam Physical Exam: Constitutional: No acute distress HEENT: EOMI, PERRLA, size 4 trach Respiratory system: Decreased air entry bilaterally, positive minimal bilateral lower lobe crackles, more on the right side, no wheeze, no rhonchi CVS: S1-S2 positive, no murmurs or gallops Abdomen: Soft, nontender, nondistended, positive bowel sounds x4, positive PEG tube Extremities: +2 pulses bilaterally radialis, no cyanosis, no edema Neuro: Awake and alert Psych: Unable to access G/U: Suprapubic Larson Skin: no rashes, warm and dry Lymphatic: no cervical or axillary lymphadenopathy Results & Data Results & [facility] ([facility]) Vital Signs (Past 12 Hours) Vital Signs Temp Pulse Pulse Pulse Resp BP BP 06/21/21 16:37 76 24 06/21/21 15:22 76 06/21/21 14:02 112 H 28 H 06/21/21 12:36 74 25 H 06/21/21 12:21 108/62 06/21/21 08:37 36.9 C 108 H 19 116/93 06/21/21 07:15 114 H 24 06/21/21 06:13 102 H 111/75 06/21/21 05:00 37.6 C H 110 H 86/66 L 89/70 L Pulse Ox 06/21/21 16:37 96 06/21/21 15:22 06/21/21 14:02 92 06/21/21 12:36 94 06/21/21 12:21 06/21/21 08:37 94 06/21/21 07:15 94 06/21/21 06:13 93 06/21/21 05:00 06/21/21 05:43 06/21/21 14:49 PG Care Time/CCT Total # of Minutes Spent Total Time Spent with Patient: Total time spent is greater than 50% in coordination of care (as documented) at patient's floor/unit and/or counseling patient: Coding Level of Care Code 58387 Subseq Hosp Care Lvl 3 Diagnoses Hypoxia R09.02 Pleural effusion, left J90 Paraplegia G82.20 Pulmonary edema J81.0 Chronicity: acute Moderate malnutrition E44.0 Weak cough R05 Obesity E66.9
[2021-06-21] MEDS ORDERED: MIDAZOLAM HCL 5 MG/ML 1 ML VIAL IV STA (17:20)
[2021-06-21] MEDS ORDERED: SUCCINYLCHOLINE CHLORIDE 20 MG/ML 10 ML VIAL IV STA (17:20)
[2021-06-21] MEDS ORDERED: fentaNYL citrate 100 MCG/2 ML VIAL IV STA (17:20)
[2021-06-21] MEDS ORDERED: fentaNYL citrate 100 MCG/2 ML VIAL ONE (17:22)
[2021-06-21] MEDS ORDERED: MIDAZOLAM HCL 1 MG/ML 2ML VIAL ONE (17:22)
[2021-06-21] MEDS ORDERED: RAPID SEQUENCE INDUCTION BAG ONE (17:24)
[2021-06-21] MEDS ORDERED: LIDO/EPINEPHRINE/SOD BICARB 20 ML VIAL INFIL ONE ×2 (17:30→17:32)
--- NOTE | 2021-06-21 17:38 | Critical Care Consultation ---
Date of Consultation June 21, 2021 Assessment & Plan (1) Hypoxia: Reason Critically Ill: 50-year-old female with acute hypoxic respiratory failure PLAN: Neuro: Generalized epilepsy -Neurology following -Continue current antiepileptics Acute metabolic encephalopathy -Check ammonia -Likely multifactorial Resp: Acute hypoxic respiratory failure Tracheostomy dependence Acute respiratory acidosis -Tracheostomy changed by myself -Mechanical ventilation overnight Pleural effusion -Serial exams CV: Paroxysmal atrial fibrillation -Systemic anticoagulation INR at 2 -Flecainide 100 mg twice daily -Metoprolol 50 mg twice daily Pericardial effusion -Followed by cardiology Fluids/Renal: Hyperkalemia -Recheck in a.m. consider secondary to laboratory draw method Hyponatremia -Suspect hypervolemic hyponatremia ID: Complicated urinary tract infection -Klebsiella ESBL -Enterococcus faecalis -Continue gentamicin x14 days GI/Nutrition: Mild protein calorie malnutrition -hypoalbuminemia Nighttime bolus feedings Heme: Anemia DVT prophylaxis: History IVC filter, systemic anticoagulation on warfarin Endocrine: ICU hyperglycemia protocol Vascular access: Peripheral IVs Code Status: Full code Disposition: ICU (2) Pleural effusion, left: (3) Paraplegia: (4) Pulmonary edema: (5) Moderate malnutrition: (6) Weak cough: (7) Obesity: Supervising Physician Co-Signing Physician Notes I have personally spent 45 minutes of critical care time in the direct management of this patient. This is a life/limb threatening event. This includes time spent evaluating patient, direct bedside care, chart review, placing orders, interpretation of diagnostic studies, discussion with consultants, patient, and/or family members regarding treatment decisions, as well as other required patient management activities. This time is exclusive of all separately billable procedures, and teaching time and separate from and in addition to any other critical care service time. History of Present Illness Reason for Consultation: Acute hypoxic respiratroy failure Requesting Physician: London Cho MD Attending Physician: London Cho MD History of Present Illness Patient is a 50-year-old female with a history of tracheostomy dependent respiratory failure, PEG tube, suprapubic catheter who presented to the emergency department and was found to have a urinary tract infection. Since then she has had a tenuous hospital course which includes worsening encephalopathy likely secondary to antibiotic administration complicating epilepsy medication, worsening encephalopathy, acute heart failure with preserved ejection fraction, new onset atrial fibrillation which has converted back to normal sinus rhythm and administration of systemic anticoagulation for atrial fibrillation. Most recently she was found to have pleural effusions which have been evaluated by pulmonary, at this time there is minimal concern that this represents a empyema, there is also increasing pericardial fluid which has been evaluated by cardiology anticipate follow-up serial exams. Allergies Allergy/AdvReac Type Severity Reaction Status Date / Time phenobarbital AdvReac Intermediate depresssed Verified 05/24/21 21:24 Home Medications Medication Instructions Recorded Confirmed Type diazepam 5 mg tablet 5 mg PO BID 11/14/18 06/05/21 History magnesium oxide 200 mg PO Q2D 11/14/18 06/05/21 History magnesium oxide 400 mg PO Q2D 11/14/18 06/05/21 History pseudoephedrine HCl 30 mg tablet 30 mg PO DAILY PRN 01/29/20 06/05/21 History (Sudafed) ibuprofen 200 mg tablet 400 - 600 mg PO UD PRN 10/17/20 06/05/21 History levalbuterol HCl 0.63 mg/3 mL 0.63 mg INHALATION Q8 PRN 10/17/20 06/05/21 History solution for nebulization carbamazepine 200 mg tablet 400 mg PO HS 05/24/21 06/05/21 History carbamazepine 200 mg tablet 200 mg PO DAILY 05/24/21 06/05/21 History (Tegretol) carbamazepine 200 mg tablet 400 mg PO Q OTHER DAY 05/24/21 06/05/21 History (Tegretol) docusate sodium 60 mg/15 mL oral 100 mg PO QAM 05/24/21 06/05/21 History syrup guaifenesin 600 mg tablet, 600 mg PO BID 05/24/21 06/05/21 History extended release 12 hr lamotrigine 100 mg tablet 100 mg PO BID 05/24/21 06/05/21 History (Lamictal) levothyroxine 175 mcg tablet 175 mcg FEEDING TUBE DAILY@2100 05/24/21 06/05/21 History multivitamin 1 tab PO QAM 05/24/21 06/05/21 History mupirocin 2 % topical ointment 1 applic TOPICAL DAILY 05/24/21 06/05/21 History oxybutynin chloride 10 mg 10 mg PO DAILY PRN 05/24/21 06/05/21 History tablet,extended release 24 hr valproic acid (as sodium salt) 250 625 mg FEEDING TUBE BID 05/24/21 06/05/21 History mg/5 mL oral solution fluconazole 150 mg tablet 150 mg PO Q3D #2 tab 05/27/21 06/05/21 Rx (Diflucan) Patient History Medical History (Updated 06/21/21 @ 17:55 by London Cho MD) Chronic constipation Gastrointestinal tube present Generalized epilepsy (09/22/11) Leeroy filter in place 2015 -Placed after back surgery prophylactically Mental retardation Obesity Weak cough Surgical History Difficult ventilator weaning 2015 - post op back surgery History of ankle surgery left ankle History of back surgery 2015 History of cardiac cath [place] 2015 Hx of hysterectomy, total 2009 Family History Other No pertinent family history in first degree relatives Social History Smoking Status: Never smoker Second Hand Exposure: No; Hx Alcohol Use: No Hx Substance Use: No Preferred Language: Cymro Communication Ability: Impaired Software Analyst Required: No Beliefs That Will Affect Care: None Current Living Situation: Parent Other Information That Helps Us Care for You: No Feels Safe at Home: Yes Assistive Devices: Oxygen - Continuous Review of Systems Review of Systems: Unobtainable due to cognitive status Physical Exam Physical Exam: General: Alert. nontoxic. Skin: Warm, dry, Head: Atraumatic Ears, nose, mouth and throat: airway patent, tracheostomy in place Cardiovascular: Normal peripheral perfusion Respiratory: no respiratory distress Gastrointestinal: Non distended Musculoskeletal: No deformity Results & Data Results & Data ([facility]) Vital Signs (Past 12 Hours) Vital Signs Temp Pulse Pulse Pulse Resp BP BP 06/21/21 16:37 76 24 06/21/21 15:22 76 06/21/21 14:02 112 H 28 H 06/21/21 12:36 74 25 H 06/21/21 12:21 108/62 06/21/21 08:37 36.9 C 108 H 19 116/93 06/21/21 07:15 114 H 24 06/21/21 06:13 102 H 111/75 Pulse Ox 06/21/21 16:37 96 06/21/21 15:22 06/21/21 14:02 92 06/21/21 12:36 94 06/21/21 12:21 06/21/21 08:37 94 06/21/21 07:15 94 06/21/21 06:13 93 Coding Level of Care Code Critical Care 1st 30-74 mins Diagnoses Hypoxia R09.02 Pleural effusion, left J90 Paraplegia G82.20 Pulmonary edema J81.0 Chronicity: acute Moderate malnutrition E44.0 Weak cough R05 Obesity E66.9 (1) Pulmonary edema Chronicity: acute Qualified Code(s): J81.0 - Acute pulmonary edema
--- NOTE | 2021-06-21 17:43 | Cardiology Progress Note ---
Date of Service June 21, 2021 Assessment & Plan (1) Afib: Plan: Atrial fibrillation has spontaneously converted to sinus rhythm. Would continue flecainide and metoprolol as ordered Patient therapeutically anticoagulated with warfarin currently. We will continue though may need to hold if any future procedures anticipated Echocardiogram reveals preserved LV systolic function with small to moderate pericardial effusion without tamponade Respiratory status as per pulmonology (2) Pleural effusion, left: Plan: Moderate sized effusion noted on echocardiogram and CAT scan (3) Pulmonary edema: Plan: Clinically improved. Chronic hypoalbuminemia contributing (4) Generalized epilepsy: Plan: Management as per neurology and hospitalist. DVT prophylaxis: has an IVC filter, and is also now on coumadin. (5) Pericardial effusion: Plan: Review of echo today demonstrates as per CT scan as well small to moderate pericardial effusion currently not hemodynamically significant. We will repeat echocardiogram in a.m. Consider adding colchicine to her regimen Admission and Anticipated Discharge Date Admission Date: June 05, 2021 Subjective Patient seen and examined, chart, medications, telemetry reviewed Patient spontaneously converted to sinus rhythm at 1009 this morning Patient appears brighter today than yesterday by my examinations. Pulmonary status less vigorous patient intermittently febrile with plans to transfer to the intensive care unit for further management Review of Systems Review of Systems: Unobtainable due to cognitive status Physical Exam Respiratory: Auscultation: + diminished lung sounds Cardiovascular: Rate/Rhythm: regular rate and regular rhythm Heart Sounds: normal S1 and normal S2 Vessels: no JVD and no carotid bruit Extremities: + edema (Trace LE edema,doughy consistency) Gastrointestinal (Abdomen): Inspection/Auscultation: normal bowel sounds Results & Data ([facility]) Vital Signs (Past 12 Hours) Vital Signs Temp Pulse Pulse Pulse Resp BP BP 06/21/21 16:37 76 24 06/21/21 15:22 76 06/21/21 14:02 112 H 28 H 06/21/21 12:36 74 25 H 06/21/21 12:21 108/62 06/21/21 08:37 36.9 C 108 H 19 116/93 06/21/21 07:15 114 H 24 06/21/21 06:13 102 H 111/75 Pulse Ox 06/21/21 16:37 96 06/21/21 15:22 06/21/21 14:02 92 06/21/21 12:36 94 06/21/21 12:21 06/21/21 08:37 94 06/21/21 07:15 94 06/21/21 06:13 93 Laboratory Results Laboratory Results - last 24 hr 06/21/21 06/21/21 06/21/21 05:43 05:43 05:43 WBC 6.95 RBC 3.32 L Hgb 10.9 L Hct 32.1 L MCV 96.7 MCH 32.8 MCHC 34.0 RDW Std Deviation 53.0 H RDW Coeff of Nazanin 15.1 H Plt Count 277 MPV 8.7 Immature Gran % (Auto) 0.3 Neut % (Auto) 66.0 Lymph % (Auto) 17.8 [place] % (Auto) 15.8 Eos % (Auto) 0.0 Baso % (Auto) 0.1 Neut # (Auto) 4.58 Lymph # (Auto) 1.24 [place] # (Auto) 1.10 H Eos # (Auto) 0.00 Baso # (Auto) 0.01 Immature Gran # (Auto) 0.02 ESR PT 21.4 H INR 2.2 H Sample Site POC pH POC pCO2 POC pO2 POC HCO3 POC Total CO2 POC Base Excess POC ABG O2 Sat Arun Test O2 Delivery Device POC FiO2 Sodium 133 L Potassium 5.2 H D Chloride 103 Carbon Dioxide 26 Anion Gap 4.0 BUN 44 H Creatinine 0.48 L Est Cr Clr Drug Dosing 141.1 Est GFR ( Amer) 134.4 Est GFR (Non-Af Amer) 116.0 BUN/Creatinine Ratio 92.7 H Glucose 131 H Lactate Calcium 8.3 L 06/21/21 06/21/21 06/21/21 05:43 08:26 11:57 WBC RBC Hgb Hct MCV MCH MCHC RDW Std Deviation RDW Coeff of Nazanin Plt Count MPV Immature Gran % (Auto) Neut % (Auto) Lymph % (Auto) [place] % (Auto) Eos % (Auto) Baso % (Auto) Neut # (Auto) Lymph # (Auto) [place] # (Auto) Eos # (Auto) Baso # (Auto) Immature Gran # (Auto) ESR 69 H PT INR Sample Site L Radial POC pH 7.30 L POC pCO2 53 H POC pO2 70 L POC HCO3 26 H POC Total CO2 28 POC Base Excess 0.0 POC ABG O2 Sat 92.0 Arun Test Pass O2 Delivery Device Trach Col POC FiO2 28 Sodium Potassium Chloride Carbon Dioxide Anion Gap BUN Creatinine Est Cr Clr Drug Dosing Est GFR ( Amer) Est GFR (Non-Af Amer) BUN/Creatinine Ratio Glucose Lactate 0.7 Calcium 06/21/21 14:49 WBC RBC Hgb Hct MCV MCH MCHC RDW Std Deviation RDW Coeff of Nazanin Plt Count MPV Immature Gran % (Auto) Neut % (Auto) Lymph % (Auto) [place] % (Auto) Eos % (Auto) Baso % (Auto) Neut # (Auto) Lymph # (Auto) [place] # (Auto) Eos # (Auto) Baso # (Auto) Immature Gran # (Auto) ESR PT INR Sample Site POC pH POC pCO2 POC pO2 POC HCO3 POC Total CO2 POC Base Excess POC ABG O2 Sat Arun Test O2 Delivery Device POC FiO2 Sodium 131 L Potassium 6.7 H* D Chloride 102 Carbon Dioxide 26 Anion Gap 3.0 BUN 45 H Creatinine 0.54 L Est Cr Clr Drug Dosing 125.5 Est GFR ( Amer) 129.3 Est GFR (Non-Af Amer) 111.6 BUN/Creatinine Ratio 83.8 H Glucose 135 H Lactate Calcium 8.7 Medications Administered Current Medications Acetaminophen (Acetaminophen 325 Mg Tab) 650 mg PEG Q4H PRN PRN Reason: Pain or Fever Stop: 07/05/21 21:20 Last Admin: 06/21/21 00:39 Dose: 650 mg Documented by: Carbamazepine (Carbamazepine 200 Mg Tablet) 300 mg PO BID17 [facility] Stop: 07/18/21 16:59 Last Admin: 06/21/21 16:46 Dose: 300 mg Documented by: Diazepam (Diazepam 5 Mg Tablet) 5 mg PO BID@0900,1700 [facility]; Protocol Stop: 07/06/21 16:59 Last Admin: 06/21/21 16:43 Dose: 5 mg Documented by: Docusate Sodium (Docusate Sodium Syrup 100 Mg/10 Ml Udc) 100 mg PO QAM [facility] Stop: 07/06/21 08:59 Last Admin: 06/21/21 08:54 Dose: 100 mg Documented by: Enteral Nutritional Formula (Peptamen 1.5 Nelson 1,000 Ml Bag) 1,000 ml PEG DAILY@1900 [facility]; Protocol Stop: 07/10/21 18:59 Last Admin: 06/20/21 22:34 Dose: 1,000 ml Documented by: Flecainide Acetate (Flecainide Acetate 100 Mg Tablet) 100 mg PO Q12 [facility] Stop: 07/18/21 08:59 Last Admin: 06/21/21 08:52 Dose: 100 mg Documented by: Guaifenesin (Guaifenesin 600 Mg Tabcr) 600 mg PO BID@0900,1700 [facility]; Protocol Stop: 07/06/21 16:59 Last Admin: 06/21/21 16:42 Dose: 600 mg Documented by: Lorazepam (Ativan) 2 mg in 4 mls @ 4 mls/min IV Q4H PRN PRN Reason: seizure Stop: 07/05/21 21:20 Ampicillin Sodium 2,000 mg/ (Sodium Chloride) 100 mls @ 200 mls/hr IV Q6H [facility] Stop: 07/01/21 07:59 Last Infusion: 06/21/21 14:36 Dose: Infused Documented by: Gentamicin Sulfate 312 mg/ (Dextrose) 107.8 mls @ 107.8 mls/hr IV Q36H [facility] Stop: 07/01/21 08:59 Last Infusion: 06/21/21 10:22 Dose: Infused Documented by: Lamotrigine (Lamotrigine 100 Mg Tab) 100 mg PO BID@0900,1700 [facility]; Protocol Stop: 07/06/21 16:59 Last Admin: 06/21/21 16:42 Dose: 100 mg Documented by: Lansoprazole (Lansoprazole 30 Mg Soltab) 30 mg NG DAILY [facility] Stop: 07/11/21 09:29 Last Admin: 06/21/21 08:52 Dose: 30 mg Documented by: Levalbuterol HCl (Levalbuterol Hcl 0.63 Mg/3 Ml Neb) 0.63 mg INH Q8 PRN PRN Reason: Wheezing Stop: 07/05/21 21:20 Levalbuterol HCl (Levalbuterol Hcl 1.25 Mg/3 Ml Neb) 1.25 mg NEB BIDR [facility] Stop: 07/12/21 18:59 Last Admin: 06/21/21 07:14 Dose: 1.25 mg Documented by: Levothyroxine Sodium (Levothyroxine Sodium 175 Mcg Tablet) 175 mcg PEG DAILY@2100 [facility] Stop: 07/05/21 21:20 Last Admin: 06/20/21 22:34 Dose: 175 mcg Documented by: Magnesium Oxide (Magnesium Oxide 400 Mg Tab) 400 mg PO DAILY@0730 [facility] Stop: 07/07/21 07:29 Last Admin: 06/21/21 08:52 Dose: 400 mg Documented by: Metoprolol Tartrate (Metoprolol Tartrate 50 Mg Tab) 50 mg PO BID [facility] Stop: 07/15/21 20:59 Last Admin: 06/21/21 08:53 Dose: 50 mg Documented by: Miscellaneous Information (Gentamicin Consult Active) 1 ea N/A UD PRN PRN Reason: Consult Stop: 07/21/21 07:45 Multivitamins (Multivitamin Tab) 1 tab PO QAM [facility] Stop: 07/06/21 08:59 Last Admin: 06/21/21 08:52 Dose: 1 tab Documented by: Nutritional Formula (Prosource No Carb 30 Ml/Pkt) 30 ml PEG Q24H [facility] Stop: 07/15/21 18:59 Last Admin: 06/20/21 22:34 Dose: 30 ml Documented by: Oxybutynin Chloride (Oxybutynin Chloride Xl 5 Mg Tabcr) 10 mg PO DAILY PRN PRN Reason: Catheter change/Bladder Spasm Stop: 07/05/21 21:20 Last Admin: 06/21/21 08:52 Dose: 10 mg Documented by: Patiromer (Patiromer Calcium Sorbitex 8.4 Gm Pack) 8.4 gm PO DAILY [facility] Stop: 07/21/21 15:59 Last Admin: 06/21/21 16:54 Dose: 8.4 gm Documented by: Sterile Water (Tube Feeding Water Flush) 30 ml PEG Q4H [facility] Stop: 07/10/21 17:59 Last Admin: 06/21/21 13:49 Dose: 30 ml Documented by: Valproic Acid (Valproic Acid 50 Mg/Ml Udp) 625 mg PO BID [facility] Stop: 07/10/21 20:59 Last Admin: 06/21/21 08:53 Dose: 625 mg Documented by: Warfarin Sodium (Warfarin Sod 3 Mg Tab) 3 mg PO DAILY@1600 [facility] Stop: 07/17/21 15:59 Last Admin: 06/21/21 16:43 Dose: 3 mg Documented by: (1) Pulmonary edema Chronicity: acute Qualified Code(s): J81.0 - Acute pulmonary edema
[2021-06-21] MEDS ORDERED: ICU PROTOCOL FOR HYPERGLYCEMIA PRN (18:13)
--- NOTE | 2021-06-21 18:28 | Procedure Note ---
Procedure Note Date of Service June 21, 2021 Note Procedure Date: Noted above Procedure: tracheostomy change Pre-procedure Diagnosis: Tracheostomy management, possible need for revision dilatation Post-procedure Diagnosis: same as above Prior to Procedure: Attending Staff: Biju Murray DO The identity of the patient was confirmed and a bedside time out was performed. Consents had been obtained for percutaneous tracheostomy: Dilatation and revision Anesthesia: 5 mL 1% lidocaine with epinephrine, 2 mg Versed, 100 mcg fentanyl: 60 mg succinylcholine for relaxation Description of Procedure: Patient was evaluated and required a tracheostomy tube change. The patient was position in the usual fashion. A leak test was performed on the new tracheostomy tube, and successfully passed. The tracheostomy ties were loosened. The cuff was deflated and the old 4-0 tracheostomy tube with removed without difficultly. The new 4-0 DCT Shiley tracheostomy tube was inserted into the tracheal opening, obturator removed, and connected to the ventilator. Chest rise was bilateral. Bilateral breath sounds were heard without air sounds in the abdomen, and end- tidal CO2 measurement was positive. Post-procedure chest was reviewed. Complications: Patient tolerated the procedure well without complications. Findings: not applicable Specimens: not applicable Estimated blood loss: Zero Coding CPT Codes Pulmonary/Thoracic - Pulmonary and Thoracic: 81775 Tracheotomy tube change ([id number]) [facility] [place] Procedure Codes (Charges) Pulmonary/Thoracic Procedure 1: Pulmonary and Thoracic: 29977 Tracheotomy tube change
[2021-06-21] MEDS ORDERED: STAT IV Infusion **Titration per Protocol STA ×2 (18:50)
[2021-06-21] MEDS ORDERED: PHENYLEPHRINE HCL 20 MG in DEXTROSE 5% 500 ML IV SCH (19:00)
--- NOTE | 2021-06-21 19:42 | XRay Report ---
XR chest 1V portable HISTORY: s/p trach change COMPARISON: Chest 06/17/2021. FINDINGS: The tracheostomy tube appears in good position. The trachea is midline. There are low lung volumes. No pneumothorax. Small left pleural effusion and bibasilar densities persist. The heart hansel ins mildly enlarged. There are low lung volumes. Right perihilar linear densities are also unchanged. Old, healed right-sided rib fractures. IMPRESSION: 1. The tracheostomy tube is in good position. 2. No change in the small left pleural effusion and bibasilar densities. ACT 112: Negative or not required by law. Electronically signed by: Guzman Jansen M.D. 06/21/2021 7:40 PM
[2021-06-21] MEDS: PEPTAMEN 1.5 CAL 1,000 ML BAG PEG SCH (20:02)
[2021-06-21] MEDS: PROSOURCE NO CARB 30 ML/PKT PEG SCH (20:03)
[2021-06-21] MEDS: LEVOTHYROXINE SODIUM 175 MCG TABLET PEG SCH (20:06)
[2021-06-22 00:25] LABS: BUN Creatinine Ratio 87.9 (10-20); Calcium 8.6 mg/dl (8.5-10.1); Est GFR (African American) 126.3 ml/min; Magnesium 2.5 mg/dl (1.8-2.4); Phosphorus 2.5 mg/dl (2.5-4.9); Potassium 5.2 mmol/L (3.5-5.1)
[2021-06-22] MEDS: AMPICILLIN 2,000 MG in SODIUM CHLOR 0.9% AD-VAN 100 ML IV SCH (01:28)
[2021-06-22] MEDS: TUBE FEEDING WATER FLUSH PEG SCH (01:29)
--- NOTE | 2021-06-22 04:37 | Communication Note ---
Date of Service: June 22, 2021 0420: While performing documentation at ICU station, I did notice that the monitor began ringing with an oxygen saturation in the mid to high 70s. I was able to formally review the monitor which initially did not look like good waveform with what looked like patient movement. She had been saturating well into the 90s throughout the entire night. Shortly after, there was sustained waveform which demonstrated an oxygen saturation in the high 60s. At this point, myself and primary nurse did present at bedside. Oxygen saturation now in the 50s. The patient's BiPAP machine was alarming. Patient appeared hypoxic yet awake and struggling. I personally attached the Ambu bag to the thrach and aggressively bagged the patient in an attempt to improve saturations. Nursing staff did contact respiratory therapy. It was noted to be difficult to bag the patient. I did request that they present bedside with glide scope and portable bronchoscope. Patient was noted to bradycardia down into the 40s. Verbal order to correct code cart and provide 1 amp of epinephrine. Patient's mother is at bedside at this time. Pulses were maintained for short period of time. Patient continued to be unsuccessfully bagged. As I was getting ready to utilize glide scope to assess placement of tracheostomy tube, the patient lost pulses. Chest compressions were instituted and CODE BLUE was called overhead. As I was preparing to utilize bronchoscope to assess airway for possible occlusion versus dislodgment, patient's mother, Tali, requests that we stop code. I did confirm this with her. This was communicated with nursing staff. Chest compressions and bagging was stopped. I did provide comfort for mother. Please see separate note for pronouncement. I have personally spent 35 minutes of critical care time in the direct management of this patient. This is a life/limb threatening event. This includes time spent evaluating patient, direct bedside care, chart review, placing orders, interpretation of diagnostic studies, discussion with consultants, patient, and family members, as well as other required patient management activities. This time is exclusive of all separately billable procedures, and teaching time and separate from and in addition to any other critical care service time. Coding Level of Care Code Critical Care 1st 30-74 mins Time Spent (min) 35
--- NOTE | 2021-06-22 04:48 | Death Pronouncement Note ---
Date of Service June 22, 2021 Pronouncement Note Admission Date Admission Date: June 05, 2021 Date and Time of Date of : 06/22/21 Time of : 04:39 PCOD Preliminary cause of : Respiratory failure Contributing Factors (1) Hypoxia: (2) Pleural effusion, left: (3) Paraplegia: (4) Pulmonary edema: (5) Moderate malnutrition: (6) Weak cough: (7) Obesity: Additional Data Confirmation of : no pulse, no respirations, no heart sounds and pupils fixed and dilated Family: at bedside Attending/PCP notified?: No Attending physician: London Cho MD Was code activated?: Yes Autopsy requested?: No assistant reading teacher notified?: No Organ bank notified?: Yes Advance directives: No Coding Level of Care Code D/C DAY MANAGEMENT <30 MINS Diagnoses Hypoxia R09.02 Pleural effusion, left J90 Paraplegia G82.20 Pulmonary edema J81.0 Chronicity: acute Moderate malnutrition E44.0 Weak cough R05 Obesity E66.9 Time Spent (min) 25
--- NOTE | 2021-06-22 07:10 | Discharge Summary ---
Date of Service June 22, 2021 Admission HPI Per Admitting Provider Mrs. Pickens is a 50-year-old white female with a past medical history of epilepsy on chronic antiseizure meds, hyponatremia (likely secondary to antiseizure meds), paraplegia/bedridden, neurogenic bladder with indwelling bella catheter and recurrent UTIs who is mentally handicapped. She is cared for by her parents who are both retired nurses. Mother reports patient typically is able to verbalize simple requests and likes to move her arms to music. Over the past 10 days, patient's mental status has been altered to the point that she has been mostly nonverbal. Her appetite has been decreased thus patient's mother has been trying to supplement Ensure through her feeding tube. Patient does eat but gets extra nutritional support through the feeding tube. She has taken in little oral intake. Patient was seen in the ED on 05/24 and found to have a grossly infected urine. She was started on Cipro and mother reports that patient's mentation seemed to improve but did not return to baseline. She completed a full course of Cipro without improvements. There have been no reports of fevers or chills. Mother reports patient has had audible wheezes and rhonchi at bedside along with increased swelling of her legs. Her mentation has remained altered which prompted her evaluation back into the ED. There she was found to be mildly hypoxic at 89%. Was started on supplemental oxygen and her subsequent pulse ox was 92%. She was afebrile and otherwise hemodynamically stable. Sodium is low at 120 (baseline 128-131). Patient's urine remains grossly infected as it is cloudy, nitrite positive and leukocyte esterase positive. Culture data reviewed from 05/24/2021 showing a polymicrobial/multidrug-resistant UTI (ESBL Klebsiella and Enterococcus) Chest x-ray does show pulmonary vascular congestion Patient will be admitted for hyponatremia in the setting of volume overload along with polymicrobial/multidrug-resistant UTI requiring IV antibiotic therapy with associated altered mental status Principal Diagnosis acute respiratory failure, sepsis, suspected urinary source Discharge Exam pt was pronounced by icu team Discharge Data Allergies Allergy/AdvReac Type Severity Reaction Status Date / Time phenobarbital AdvReac Intermediate depresssed Verified 05/24/21 21:24 Consultations 06/05/21 16:22 ED Decision to Admit Stat 06/08/21 11:44 Consult Cardiology Routine 06/13/21 13:08 Consult Pulmonology Routine 06/17/21 11:14 Consult Neurology Routine 06/21/21 18:13 Consult Formulation Technician Routine Ordered Studies 06/05/21 16:43 CT head/brain wo con Stat 06/07/21 14:47 CT abd pelvis oral con only Routine 06/08/21 11:43 CT angio chest PE protocol Urgent 06/15/21 08:00 FL video swallow Routine 06/20/21 14:40 CT chest diagnostic wo con Routine 06/21/21 16:02 US point of care ultrasound Urgent Hospital Course (1) : pt pronounced at 0439 06/22/21 (2) Acute respiratory failure with hypercapnia: leading cause is likely encephalopathy from infectious source, does not immediately appear to be pulmonary source, started on antibiotics, and cultured, moved to icu for ventilation (3) Infectious encephalopathy: Low grade fever, pt appears significantly ill Pt with low grade temp previous history of drug resistent uti , and concerns for possible aspiration, re starting ampicillin and Gent given issues cited below Her initial infection was ESBL Klebsiella. There was some concern that the Invanz was creating issues with her seizure medications. Urine grew 20,000 colonies of ESBL Klebsiella but no Enterococcus. Subsequently antibiotics changed to cover multifocal pneumonia both MRSA of which she has a nasal swab positive and atypical with azithromycin and vancomycin and gentamicin. Repeat MRSA nasal swab negative vancomycin stopped 06/11, 7 days Gentamicin completed (06/06-06/13), azithromycin completed (06/10-06/16). Appreciate SLT recommendations, is still a aspiration risk. CT chest 06/20 did not show worsening or concern for pneumonia, there is mention of a pericardial effusion but this does not seem clinically significant (4) Afib: A. fib, now A. flutter, likely spurred upon her metabolic stressors of the multifocal pneumonia. now converted to sinus rhythm Appreciate cardiology management of this. Continue metoprolol and flecainide per cardiology recommendations. Rate now better controlled. Warfarin management per cardiology, INR 2.0 today. repeat echo does not show tamponade physiology (5) Acute heart failure with preserved ejection fraction (HFpEF): Appreciate cardiology management did have fluid bolus overnight 06/20-, now with peripheral edema, is not hypoxic (6) Acute hyponatremia: Possible chronic hyponatremia from carbamazepine use. Possible SIADH however previous suspected chronic hyponatremia secondary to poor solute intake by Dr Torres. Will discontinue salt tabs as may be contributing towards water retention to see if she can maintain her sodium levels without this. (7) Generalized epilepsy: Appreciate neurology recommendation. Give anti-seizure medications via PEG to make sure she is absorbing these. Repeat Tegretol and valproic acid levels in am as discussed with her mother. (8) Mental retardation: Patient with functional quadriplegia (9) Tracheostomy tube present: changed to cuffed tube to ventilate (10) Moderate malnutrition: There has been some persistent concern of aspiration with the mother certainly her multifocal pneumonia could be based upon chronic aspiration. Patient is going to have some augmentation of her nutrition based upon nocturnal enteral feedings via her PEG tube and being allowed pleasure eating Appreciate SLT recommendations, remains on tube feeding at night (11) Pulmonary edema: has preserved EF pt with likley some aspiration pneumonitis (12) DVT prophylaxis: Warfarin with therapeutic INR Multiple visits throughout the day discussion of this patient with Dr. Ulisses Gonsalez managing her acute respiratory failure I spent over 75 minutes with this patient Total Time Total Time Spent Total Time Spent (In Minutes): less than 30 mins Discharge Plan Discharge Items Patient Disposition: Discharge Diagnosis: Hypoxic respiratory failure Addtl Attending Provider Instructions: Nikia Pickens unfortunately on 06/22/2021 at 0439. Coding Level of Care Code D/C DAY MANAGEMENT <30 MINS Diagnoses Acute respiratory failure with hypercapnia J96.02 Infectious encephalopathy G93.49; B99.9 Afib I48.91 Acute heart failure with preserved ejection fraction (HFpEF) I50.31 Acute hyponatremia E87.1 Generalized epilepsy G40.309 Mental retardation F79 Tracheostomy tube present Z93.0 Moderate malnutrition E44.0 Pulmonary edema J81.0 Chronicity: acute DVT prophylaxis Z29.9 R99
--- NOTE | 2021-06-22 08:07 | Electrocardiogram Report ---
Test Reason : Blood Pressure : / mmHG Vent. Rate : 081 BPM Atrial Rate : 081 BPM P-R Int : 216 ms QRS Dur : 108 ms QT Int : 354 ms P-R-T Axes : 054 074 006 degrees QTc Int : 411 ms Sinus rhythm with 1st degree A-V block Nonspecific T wave abnormality Anterior leads Abnormal ECG When compared with ECG of 19-JUN-2021 16:19, Sinus rhythm has replaced Atrial flutter Confirmed by Mak Horton ([id number]) on 06/22/2021 8:06:43 AM Referred By: Jt Liu Confirmed By:Mak Horton
--- NOTE | 2021-07-03 11:09 | Coding Query ---
CODING QUERY To promote full compliance with coding requirements relating to patient care, provider participation is requested in all cases of remote inpatient coder uncertainty. Please assist us with the question(s) below: Coding Question(s): Pt admitted with UTI / Sepsis .. 06/06 progress notes states chronic UTI in setting of indwelling bella catheter. Please document the source of the UTI. Thanks for your help. Ravinder Yun [facility] Physician's Response(s): chronic bella catheter Principal Diagnosis: "that condition established after study, to be chiefly responsible for occasioning the admission of the patient to the hospital for care." Co-Existing Principal Diagnosis: "when two or more diagnoses equally meet the criteria for principal diagnosis as determined by the circumstances of admission, diagnostic work up, and/or therapy provided, and the Alphabetic Index, Tabular List, or another coding guideline does not provide sequencing direction, any one of the diagnoses may be sequenced first." "When the physician has documented what appears to be a current diagnosis in the body of the record, but has not included the diagnosis in the final diagnostic statement, the physician should be asked whether the diagnosis should be added." (Source Coding Clinic 2 QTR90. p3-4) [facility]
== END 2021-06-22 06:45 | disposition expired | DRG 698 ==
LOC: ED 12:05 → SUATTDRO 18:51 → 2E 18:51 → 1E 06-21 16:01